=== PATIENT | male | born 1945 | race Caucasian/White ===

== ENCOUNTER 2019-05-12 06:00 | Outpatient (RCR) | payer OTHER, SELFPAY | END 2019-06-11 00:01 | LOC: APT 06:00 | PROVIDERS: Family Provider Internal Medicine; Visit Provider Internal Medicine | DX: Z86.73 Personal history of transient ischemic attack (TIA), and cerebral infarction without residual deficits (principal); I48.91 Unspecified atrial fibrillation | CPT/HCPCS: 97110 ×7; 97112; 97530 ==

== ENCOUNTER 2019-06-12 06:00 | Outpatient (RCR) | payer OTHER, SELFPAY | END 2019-07-12 23:59 | disposition home or self-care (01) | LOC: APT 06:00 | PROVIDERS: Family Provider Internal Medicine; PCP Internal Medicine; Visit Provider Internal Medicine | DX: I69.30 Unspecified sequelae of cerebral infarction (principal) ==

== ENCOUNTER 2019-10-27 15:27 | Inpatient (IN) | payer OTHER, MEDICARE, SELFPAY ==
[2019-10-27] VITALS (8 sets, daily range): BP systolic 124–146; BP diastolic 68–83; PULSE 62–89; RESP 14–18; TEMP 36.3–36.9; O2SAT 94–99; BMI 35.2
--- NOTE | 2019-10-27 15:32 | ED_ITS ---
HPI - Weakness General: Chief complaint: Altered Mental Status Stated complaint: AMS Time Seen by Provider: 10/27/19 15:28 Source: patient and EMS Mode of arrival: EMS Limitations: no limitations History of Present Illness: HPI Narrative: 74-year-old male that family states woke up this morning and seemed confused. Last known well was in p.m. Patient does have a history of a stroke. Patient here is able answer all my questions appropriately he states he just feels generally weak and is kind of slow to answer. He knows the date where he lives and his name. Patient has no focal deficits. He denies any pain or fevers. He has had a hematuria over the last 6 months that that he is getting worked up outpatient. MD Complaint: generalized weakness Associated symptoms: Denies chest pain, chills, easy bruising, fever(s), headache(s), nausea or vomiting Review of Systems Const: Denies: fever(s), chills, body aches or change in appetite Eyes: Denies: blurry vision or eye discomfort ENMT: Denies: throat pain or dental pain Card: Denies: chest pain Resp: Denies: dyspnea GI: Denies: abdominal pain, nausea, vomiting or diarrhea : Reports: hematuria Musc: Reports: muscle weakness Skin/Breast: Denies: rash Neuro: Denies: headache(s) Psych: Denies: depression Shai/Lymph: Denies: easy bruising All/Imm: Denies: urticaria PFSH ED PFSH: Medical History 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 Atrial fibrillation BPH (benign prostatic hyperplasia) Carotid artery stenosis Diverticulosis Duodenal ulcer Gastritis Hiatal hernia History of colon polyps Follow-up colonoscopy in 2023 HTN (hypertension) Hyperlipidemia Internal hemorrhoids S/P ORIF (open reduction internal fixation) fracture RIGHT HIP Status post placement of implantable loop recorder TIA (transient ischemic attack) Surgical History History of cystoscopy History of esophagogastroduodenoscopy (EGD) History of vasectomy S/P discectomy Status post colonoscopy with polypectomy Family History Mother Stroke Brother Rwqck-4-pvhnqaybhqt deficiency Denies family history of Anesthesia complication Bleeding disorder Social History Smoking and tobacco status: never smoked Alcohol intake: never Household members: spouse Marital status: Current occupational status: retired Physical Exam Const: COMMON NORMALS: no acute distress, patient oriented x3 and healthy appearing HENMT: COMMON NORMALS: normocephalic and atraumatic HEAD & SCALP: normocephalic and atraumatic Eye: COMMON NORMALS: Equal, round and reactive pupils present and EOMs intact bilaterally PUPIL: Yes Equal, round and reactive pupils present Neck/C-Spine: COMMON NORMALS: full ROM and supple Chest: COMMONS NORMALS: normal inspection of the chest and normal palpation of entire chest wall Resp: COMMON NORMALS: normal respiratory effort, No retractions, No use of accessory muscles and clear to auscultation bilaterally AUSCULTATION: clear to auscultation bilaterally Cardio: COMMON NORMALS: regular rate, regular rhythm and No murmurs present (Cardio) RATE: regular rate RHYTHM: regular rhythm GI: COMMON NORMALS: Normal to inspection, nondistended, normoactive bowel sounds present, Soft to palpation, non-tender and no masses PALPATION: Yes Soft to palpation Extremity: COMMON NORMALS: normal to inspection and full ROM Neuro: COMMON NORMALS: patient oriented x3, moves all extremities and no focal motor deficits Psych: COMMON NORMALS: mental status grossly normal, Normal thought process present and cooperative THOUGHT PROCESS: Normal thought process present Skin: COMMON NORMALS: no rashes or lesions noted and no wounds GENERAL SKIN EXAM: no rashes or lesions noted Course Vital Signs: Vital signs: Vital Signs Temperature 98.0 F 10/27/19 15:34 Pulse Rate 66 10/27/19 16:35 Respiratory Rate 17 10/27/19 16:35 Blood Pressure 134/73 10/27/19 16:35 Pulse Oximetry 96 10/27/19 16:35 MDM - Weakness MDM Narrative: Medical decision making narrative: Patient presents with mild confusion likely from a cystitis. Patient's urinalysis showed UTI. Patient is not septic and CT shows no acute findings. I spoke to hospitalist and will admit for observation. Lab Data: Labs: Lab Results 05/17/20 05/17/20 05/17/20 Range/Units 15:43 15:43 15:43 WBC 5.3 (4.0-10.0) 10^3/ uL RBC 3.68 L (4.1-5.3) 10^6/u L Hgb 11.5 L (11.7-16.6) g/dL Hct 37.2 L (42.0-52.0) % MCV 101.1 H (80-94) fL MCH 31.3 (28.0-34.0) pg MCHC 30.9 (30.0-36.0) g/dL RDW 14.9 (12.1-15.1) % Plt Count 117 L (130-400) 10^3/c mm MPV 11.1 H (7.4-10.4) fL Neut % (Auto) 38.4 % Lymph % (Auto) 44.0 % [place] % (Auto) 13.3 % Eos % (Auto) 3.0 % Baso % (Auto) 1.1 % Neut # (Auto) 2.0 (1.8-7.7) 10^3/u L Lymph # (Auto) 2.3 (0.8-4.8) 10^3/u L [place] # (Auto) 0.7 (0.2-0.9) 10^3/u L Eos # (Auto) 0.2 (0.0-0.8) 10^3/u L Baso # (Auto) 0.1 (0.0-0.1) 10^3/u L Nucleated RBC % (a uto) 0 % Nucleated RBCs # 0.0 /100WBC PT 22.00 H (10.5-13.3) SECO NDS INR 1.85 H (0.8-1.2) Sodium 138 (136-145) mmol/L Potassium 3.6 (3.5-5.1) mmol/L Chloride 102 (98-107) mmol/L Carbon Dioxide 26 (22-29) mmol/L Anion Gap 13.6 (5-19) BUN 12 (8-23) mg/dL Creatinine 1.2 (0.7-1.2) mg/dL Glucose 143 H (65-115) mg/dL Calculated Osmolal ity 285 (285-295) mOsm/k g Calcium 8.3 L (8.5-10.5) mg/dL Total Bilirubin 1.6 H (0.15-1.2) mg/dL AST 46 H (0-40) U/L ALT 19 (0-41) U/L Alkaline Phosphata se 113 (40-130) IU/L Troponin T Baselin e (0-15) ng/mL Total Protein 6.9 (6.6-8.7) g/dL Albumin 3.0 L (3.5-5.2) g/dL Globulin 3.9 (1.3-4.6) g/dL Urine Color (Yellow) Urine Appearance (CLEAR) Urine pH (5-7) Ur Specific Gravit y (1.005-1.030) Urine Protein (Negative) Urine Glucose (UA) (Normal) Urine Ketones (Negative) Urine Blood (Negative) Urine Nitrate (Negative) Urine Bilirubin (NEGATIVE) Urine Urobilinogen (Negative) mg/dL Ur Leukocyte Marcie ase (Negative) Urine RBC (0-2) /hpf Urine WBC (0-5) /hpf Ur Squamous Epith Cells (0-5) Urine Bacteria (NONE) Urine Mucus 10/27/19 10/27/19 Range/Units 15:43 15:50 WBC (4.0-10.0) 10^3/ uL RBC (4.1-5.3) 10^6/u L Hgb (11.7-16.6) g/dL Hct (42.0-52.0) % MCV (80-94) fL MCH (28.0-34.0) pg MCHC (30.0-36.0) g/dL RDW (12.1-15.1) % Plt Count (130-400) 10^3/c mm MPV (7.4-10.4) fL Neut % (Auto) % Lymph % (Auto) % [place] % (Auto) % Eos % (Auto) % Baso % (Auto) % Neut # (Auto) (1.8-7.7) 10^3/u L Lymph # (Auto) (0.8-4.8) 10^3/u L [place] # (Auto) (0.2-0.9) 10^3/u L Eos # (Auto) (0.0-0.8) 10^3/u L Baso # (Auto) (0.0-0.1) 10^3/u L Nucleated RBC % (a uto) % Nucleated RBCs # /100WBC PT (10.5-13.3) SECO NDS INR (0.8-1.2) Sodium (136-145) mmol/L Potassium (3.5-5.1) mmol/L Chloride (98-107) mmol/L Carbon Dioxide (22-29) mmol/L Anion Gap (5-19) BUN (8-23) mg/dL Creatinine (0.7-1.2) mg/dL Glucose (65-115) mg/dL Calculated Osmolal ity (285-295) mOsm/k g Calcium (8.5-10.5) mg/dL Total Bilirubin (0.15-1.2) mg/dL AST (0-40) U/L ALT (0-41) U/L Alkaline Phosphata se (40-130) IU/L Troponin T Baselin e 12 (0-15) ng/mL Total Protein (6.6-8.7) g/dL Albumin (3.5-5.2) g/dL Globulin (1.3-4.6) g/dL Urine Color Yellow (Yellow) Urine Appearance Clear (CLEAR) Urine pH 6 (5-7) Ur Specific Gravit y 1.015 (1.005-1.030) Urine Protein Neg (Negative) Urine Glucose (UA) Norm (Normal) Urine Ketones Negative (Negative) Urine Blood Neg (Negative) Urine Nitrate Negative (Negative) Urine Bilirubin Neg (NEGATIVE) Urine Urobilinogen 1 H (Negative) mg/dL Ur Leukocyte Marcie ase 2+ H (Negative) Urine RBC None (0-2) /hpf Urine WBC 15-25 H (0-5) /hpf Ur Squamous Epith Cells 0-4 H (0-5) Urine Bacteria 1+ H (NONE) Urine Mucus Trace Imaging Data^: CXR: Radiologist's impression: [address] [address] XRay Report Signed Patient: Blayne Martinez Unit #: [id number] : 1945 Age/Sex: 74 / M ADM Date: 10/27/19 Loc: ER Room/Bed: Attending Dr: Ordering Provider/Ordering MD: Maricarmen Rivera MD Date of Service: 10/27/19 Procedure(s): XR chest 1V portable [id number] Accession Number(s): [id number] Report Number: [id number] PROCEDURE INFORMATION: Exam: XR Chest, 1 View Exam date and time: 10/27/2019 3:54 PM Age: 74 years old Clinical indication: Other: AMS TECHNIQUE: Imaging protocol: XR of the chest Views: 1 view. COMPARISON: [place] Chest 1 [place] [id number] 12/21/2018 4:10 PM FINDINGS: Lungs: Streaky opacities at the lung bases, likely secondary to atelectasis and/or scarring. No consolidation. Pleural space: Unremarkable. No pleural effusion. No pneumothorax. Heart/Mediastinum: Unremarkable. No cardiomegaly. Vasculature: Senescent changes of the aorta. Bones/joints: No acute osseous abnormality. Mild degenerative changes of the spine and shoulders. Other findings: Unchanged event monitor overlying the left medial hemithorax. XR/XR chest 1V portable [id number] IMPRESSION: No acute radiographic findings. CT Head: Radiologist's impression: [place] [address] CT Scan Report Signed Patient: Blayne Martinez Unit #: [id number] : 1945 Age/Sex: 74 / M ADM Date: 10/27/19 Loc: ER Room/Bed: Attending Dr: Ordering Provider/Ordering MD: Maricarmen Rivera MD Date of Service: 10/27/19 Procedure(s): CT head wo con* [id number] Accession Number(s): [id number] Report Number: [id number] PROCEDURE INFORMATION: Exam: CT Head Without Contrast Exam date and time: 10/27/2019 3:39 PM Age: 74 years old Clinical indication: Altered mental status/memory loss; Confusion or disorientation; Patient HX: Increasing confusion w ESPA[place]A - HX of CVA; Additional info: AMS TECHNIQUE: Imaging protocol: Computed tomography of the head without contrast. Axial, coronal and sagittal reformatted images were created and reviewed. Radiation optimization: All CT scans at this facility use at least one of these dose optimization techniques: automated exposure control; mA and/or kV adjustment per patient size (includes targeted exams where dose is matched to clinical indication); or iterative reconstruction. COMPARISON: CT head wo con* [id number] 03/24/2019 10:44 AM RADIATION DOSE METRICS: Total DLP: 790.43 mGy-cm FINDINGS: Brain: Patchy areas of hypoattenuation in the periventricular and subcortical white matter, consistent with chronic small vessel ischemic disease. No CT evidence of acute intracranial hemorrhage or acute territorial infarction. No significant mass effect or midline shift. Basal cisterns patent. Ventricles: Prominence of the cortical sulci, cisterns and ventricular system, consistent with cerebral and cerebellar volume loss. Bones/joints: No acute osseous abnormality. Sinuses: Minimal ethmoid mucosal thickening. Mastoid air cells: Grossly unremarkable. Soft tissues: Grossly unremarkable. Vasculature: Calcific atherosclerotic disease in the cavernous internal carotid arteries. CT/CT head wo con* [id number] IMPRESSION: 1. No CT evidence of acute intracranial pathology. 2. Additional findings, as above. Discharge Plan Discharge Patient Disposition: Admitted As Inpatient Clinical Impression: Altered mental status Qualifiers: Altered mental status type: unspecified Qualified Code(s): R41.82 - Altered mental status, unspecified Acute cystitis Qualifiers: Hematuria presence: without hematuria Qualified Code(s): N30.00 - Acute cystiti s without hematuria Condition: Stable Referrals: Hadley Vidales [Primary Care Provider] - Coding Level of Care Code ED Energy Technician for [facility] Fwd Exam Comprehensive
--- NOTE | 2019-10-27 15:34 | XRR_ITS ---
PROCEDURE INFORMATION: Exam: XR Chest, 1 View Exam date and time: 10/27/2019 3:54 PM Age: 74 years old Clinical indication: Other: AMS TECHNIQUE: Imaging protocol: XR of the chest Views: 1 view. COMPARISON: [place] Chest 1 [place] [id number] 12/21/2018 4:10 PM FINDINGS: Lungs: Streaky opacities at the lung bases, likely secondary to atelectasis and/or scarring. No consolidation. Pleural space: Unremarkable. No pleural effusion. No pneumothorax. Heart/Mediastinum: Unremarkable. No cardiomegaly. Vasculature: Senescent changes of the aorta. Bones/joints: No acute osseous abnormality. Mild degenerative changes of the spine and shoulders. Other findings: Unchanged event monitor overlying the left medial hemithorax. XR/XR chest 1V portable [id number] IMPRESSION: No acute radiographic findings.
--- NOTE | 2019-10-27 15:35 | ECG_ITS ---
Measurements Intervals [place] Rate: 63 P: -71 MN: 174 QRS: 53 QRSD: 81 T: 45 QT: 440 QTc: 451 SINUS RHYTHM Compared to ECG 03/24/2019 11:04:30 First degree AV block no longer present Electronically Signed On 10-28-2019 19:54:18 CDT by Sintia Chapman M.D. [email or web address]
[2019-10-27 15:51] LABS: Basophils # 0.1 10^3/uL (0.0-0.1); Basophils % 1.1 %; Eosinophils # 0.2 10^3/uL (0.0-0.8); Hematocrit 37.2 % (42.0-52.0); Hemoglobin 11.5 g/dL (11.7-16.6); Lymphocytes # 2.3 10^3/uL (0.8-4.8); Mean Corpuscular HGB Conc 30.9 g/dL (30.0-36.0); Mean Corpuscular Hemoglobin 31.3 pg (28.0-34.0); Mean Corpuscular Volume 101.1 fL (80-94); Mean Platelet Volume 11.1 fL (7.4-10.4); Monocytes # 0.7 10^3/uL (0.2-0.9); Monocytes % 13.3 %; Neutrophils % 38.4 %; Nucleated Red Blood Cells % 0 %; Platelet Count 117 10^3/cmm (130-400); Red Blood Count 3.68 10^6/uL (4.1-5.3); Red Cell Distribution Width 14.9 % (12.1-15.1); White Blood Count 5.3 10^3/uL (4.0-10.0)
[2019-10-27 16:00] LABS: INR 1.85 (0.8-1.2)
[2019-10-27 16:04] LABS: Alanine Aminotransferase 19 U/L (0-41); Alkaline Phosphatase 113 IU/L (40-130); Anion Gap 13.6 (5-19); Aspartate Amino Transferase 46 U/L (0-40); Blood Urea Nitrogen 12 mg/dL (8-23); Calcium 8.3 mg/dL (8.5-10.5); Carbon Dioxide 26 mmol/L (22-29); Chloride 102 mmol/L (98-107); Creatinine Clr Calc Pharmacy 73.7718; Globulin 3.9 g/dL (1.3-4.6); Glucose 143 mg/dL (65-115); Osmolality Calculated 285 mOsm/kg (285-295); Potassium 3.6 mmol/L (3.5-5.1); Sodium 138 mmol/L (136-145); Total Bilirubin 1.6 mg/dL (0.15-1.2); Total Protein 6.9 g/dL (6.6-8.7)
[2019-10-27 16:04] LABS: Urine Appearance Clear (CLEAR); Urine Color Yellow (Yellow); pH Urine 6 (5-7)
[2019-10-27 16:05] LABS: Add Urine Microscopic? YES; Bilirubin Urine Neg (NEGATIVE); Blood Urine Neg (Negative); Glucose Urine UA Norm (Normal); Ketones Urine Negative (Negative); Leukocyte Esterase Urine 2+ (Negative); Nitrate Urine Negative (Negative); Protein Urine Neg (Negative); Specific Gravity, Urine 1.015 (1.005-1.030); Urobilinogen Urine 1 mg/dL (Negative)
[2019-10-27 16:06] LABS: Troponin(5th) Baseline 12 ng/mL (0-15)
[2019-10-27 16:09] LABS: WBC Urine 15-25 /hpf (0-5)
[2019-10-27 16:10] LABS: Add Urine Culture? Yes; Bacteria Urine 1+; Mucus Urine TRACE; Squamous Epithelial Cell Urine 0-4 (0-5)
[2019-10-27] MEDS: cefTRIAXone 1,000 MG in sodium chloride 0.9% (plus) 50 ML 100 MG IV (16:34)
[2019-10-27] MEDS: sodium chloride 0.9% 1,000 ML 999 ML IV (16:34)
--- NOTE | 2019-10-27 17:03 | CTR_ITS ---
PROCEDURE INFORMATION: Exam: CT Abdomen And Pelvis Without Contrast Exam date and time: 10/27/2019 5:24 PM Age: 74 years old Clinical indication: Abdominal tenderness and bloating; Patient HX: C/O abd distention and pain for a while; Additional info: R/O obstructive pyelo TECHNIQUE: Imaging protocol: Computed tomography of the abdomen and pelvis without contrast. Axial, coronal and sagittal reformatted images were created and reviewed. Radiation optimization: All CT scans at this facility use at least one of these dose optimization techniques: automated exposure control; mA and/or kV adjustment per patient size (includes targeted exams where dose is matched to clinical indication); or iterative reconstruction. COMPARISON: CT Abdomen/Pelvis Renal [id number] 12/18/2018 9:21 AM RADIATION DOSE METRICS: Total DLP: 1816.72 mGy-cm FINDINGS: Lungs: Linear stranding and groundglass at the lung bases, likely due to atelectasis and/or scarring. Right lower lobe calcified granuloma. Liver: Subtle nodularity of the hepatic contour, suggesting cirrhosis. Gallbladder and bile ducts: No radiodense gallstones. No biliary ductal dilatation. Pancreas: Unremarkable. Spleen: Unremarkable. Adrenals: Unremarkable. Kidneys and ureters: Nonobstructing left renal calculi. No hydronephrosis. Stomach and bowel: Submucosal fat deposition in the rectum, suggestive of chronic inflammation. No definite bowel wall thickening. No obstruction. No pneumatosis. Appendix: Normal. Intraperitoneal space: No free fluid. No organized fluid collection. No free air. Vasculature: Rajb-[id number]-swfhsxnl atherosclerotic disease. 3.3 cm infrarenal abdominal aortic aneurysm, slightly increased in size since the prior study (previously 3.2 cm). Lymph nodes: No pathologically enlarged lymph nodes. Bladder: Unremarkable. Reproductive: Unremarkable. Bones/joints: No acute osseous abnormality. Osteopenia. Degenerative changes. Right hip arthroplasty in place. Soft tissues: Small, fat containing umbilical and inguinal hernias. CT/CT abdomen pelvis wo con [id number] IMPRESSION: 1. Limited noncontrast examination without CT evidence of acute intra-abdominal or pelvic pathology. 2. Additional findings, as above. Radiation Dose CTDIVOL = (mGy): DLP = 1816.72 (mGy-cm)
--- NOTE | 2019-10-27 17:03 | PM.HP ---
Providers/Chief Complaint Admitting Physician: Norm Mc MD Primary Care Provider: Hadley Vidales Chief Complaint: AMS History of Present Illness Blayne Martinez is a 74 year old male with PMH hemochromatosis s/p phlebotomy (08/2018), signs of early liver cirrhosis and portal hypertension on ultrasound done in November 2018, chronic anemia, thrombocytopenia, HLD, BPH , atrial fibrillation with RVR on Elquis, TIA, carotid artery stenosis, hematemesis in November thousand after which aspirin was withheld, pansensitive E. coli UTI. History from Ms. Willoughby over the phone. As per the , he was in his usual state of health until a week ago when he developed headache, more in the frontal region with some apparent discomfort in the abdomen. She is not aware if patient had any diarrhea. Denies having any vomiting, nausea, hematemesis or decrease in appetite. Patient has also been having headaches in frontal area, worse over last 2 days. He was in his usual state until last night. On waking up this am, he was confused, such as could not operate his phone, was going in wrong direction at home, so was brought to the ER for evaluation. As per , he has not had URI symptoms, sick contacts, cough, known tick bites. Last visited by son and his sister 3 weeks ago. No recent hiking. No known tick bites. No h/o bleeding at any site. No hematemesis or tere. Has been compliant with all medications. No h/o photophibia or weakness in any limb. In Er, he was hemodynamically stable, afebrile, no leukocytosis. Cr at baseline. LFT WNL. UA with leuko esterase and 15-20WBCs. Of note, patient saw PCP 3 weeks ago and was referred to Dr. Muñoz for hematuria. Currently UA negative for blood. Review of Systems Narrative: Obtained from as patient is confused. Const: Denies: fever(s), chills, body aches, change in appetite, malaise, night sweats, diaphoresis, change in sleep pattern, daytime sleepiness or snoring Eyes: Denies: change in vision, blurry vision, photophobia, eye discomfort or eye discharge ENMT: Denies: throat pain, enlarged tonsils, hoarseness, mouth pain, oral sores, dry mouth, tinnitus, nasal congestion or post nasal drip Card: Denies: chest pain, palpitations, irregular heart rhythm, edema, swelling of feet/ankles, lightheadedness, syncope, pre-syncope, dyspnea on exertion, orthopnea, leg pain with exertion or acrocyanosis Resp: Denies: dyspnea, productive cough, non-productive cough, wheezing, stridor, pain on inspiration, change in phlegm color, hemoptysis or chest congestion GI: Denies: abdominal pain, nausea, vomiting, hematemesis, coffee ground emesis, dysphagia, heartburn, diarrhea, constipation, bloating, GI cramping, change in bowel habits, pain on defecation, hematochezia or melena : Denies: flank pain, difficulty urinating, dysuria, urinary frequency, urinary urgency, urinary hesitancy, urinary dribbling, difficulty starting urination, change in urine stream, nocturia or hematuria Musc: Denies: neck pain, back pain, extremity pain, joint pain, joint swelling, joint redness, joint stiffness or limited range of motion Neuro: Denies: headache(s), numbness in extremities, weakness in extremities, sensory changes, lack of coordination, difficulty walking, frequent falls, dizziness, vertigo, confusion, Slurred speech present, difficulty communicating thoughts or seizure-like activity Psych: Denies: anxiety, depression, mood swings, panic attacks, hopelessness or irritability Endo: Denies: polyuria, polydipsia, tired all the time, cold intolerance, excessive sweating, flushing or heat intolerance Shai/Lymph: Denies: easy bruising or easy bleeding All/Imm: Denies: tongue swelling, facial swelling or acute wheezing Medications/Allergies Home Medications Medication Instructions Recorded Confirmed Last Taken Type albuterol sulfate 90 mcg/actuation 2 puff INHALATION Q6H PRN 06/17/19 10/27/19 Unknown History aerosol inhaler metoprolol succinate 25 mg 12.5 mg PO DAILY tab 06/17/19 10/27/19 10/27/19 08:30 History tablet,extended release 24 hr pantoprazole 40 mg tablet,delayed 40 mg PO DAILY tab 06/17/19 10/27/19 10/27/19 08:30 History release potassium chloride 20 mEq 10 meq PO DAILY tab 06/17/19 10/27/19 10/27/19 08:30 History tablet,extended release apixaban 5 mg tablet 5 mg PO BID 06/18/19 10/27/19 10/27/19 08:30 History furosemide 40 mg tablet 40 mg PO DAILY tab 06/18/19 10/27/19 10/27/19 08:30 History levetiracetam 750 mg tablet 750 mg PO BID 06/18/19 10/27/19 10/27/19 08:30 History pravastatin 20 mg tablet 10 mg PO BEDTIME tab 06/18/19 10/27/19 10/26/19 History Allergies Allergy/AdvReac Type Severity Reaction Status Date / Time No Known Allergies Allergy Verified 10/27/19 15:36 PFSH Acute PFSH: Medical History (Updated 10/27/19 @ 19:33 by Norm Mc MD) 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 Atrial fibrillation BPH (benign prostatic hyperplasia) Carotid artery stenosis Diverticulosis Duodenal ulcer Gastritis Hiatal hernia History of colon polyps Follow-up colonoscopy in 2023 HTN (hypertension) Hyperlipidemia Internal hemorrhoids Liver, cirrhosis, portal Portal hypertension S/P ORIF (open reduction internal fixation) fracture RIGHT HIP Status post placement of implantable loop recorder TIA (transient ischemic attack) Surgical History History of cystoscopy History of esophagogastroduodenoscopy (EGD) History of vasectomy S/P discectomy Status post colonoscopy with polypectomy Family History Mother Stroke Brother [id number] deficiency Denies family history of Anesthesia complication Bleeding disorder Social History Smoking and tobacco status: never smoked Alcohol intake: never Household members: spouse Marital status: Current occupational status: retired Vitals/I&O/Wt Last Vital Signs Temp 98.0 F 10/27/19 15:34 Pulse 66 10/27/19 16:35 Resp 17 10/27/19 16:35 BP 134/73 10/27/19 16:35 Pulse Ox 96 10/27/19 16:35 Weight last 48 hrs Weight 117.934 kg Physical Exam Narrative: EXAM NARRATIVE: General: Alert, awake, oriented x 1-2, slow to respond, intermittently confused, mildly dehydrated HEENT: PERRLA, pupils bilaterally equal and reactive. No photophobia Chest: Normal vesicular breath sounds, no added sounds, equal good air entry bilaterally CVS: S1-S2 regular, no murmurs, no tachycardia, no gallops, no rubs Abdomen: Soft, nontender, no organomegaly, bowel sounds present Neuro: No focal deficits, no facial deformity, AO x1-2, power 5/5 in all limbs. No neck stiffness. Neck supple. Data : 10/27/19 15:43 10/27/19 15:43 A&P Assessment and plan (1) Altered mental status: Status: Acute Qualifiers: Altered mental status type: unspecified Qualified Code(s): R41.82 - Altered mental status, unspecified (2) Acute cystitis: Status: Acute Qualifiers: Hematuria presence: without hematuria Qualified Code(s): N30.00 - Acute cystitis without hematuria (3) Atrial fibrillation: Status: Acute Qualifiers: Atrial fibrillation type: paroxysmal Qualified Code(s): I48.0 - Paroxysmal atrial fibrillation (4) Chronic anemia: Status: Acute (5) Hemochromatosis: Status: Acute (6) Portal hypertension: Status: Acute (7) Liver, cirrhosis, portal: Status: Acute (8) HTN (hypertension): Status: Acute Additional A&P Information 72-year-old gentleman past medical history ofhemochromatosis leading to portal hypertension and liver cirrhosis, TIA, atrial fibrillation only on Eliquis not on aspirin since GI bleed in November 2018 presented with altered mental status for 1 day. \ Admit to med/surg 1. Altered mental status :Could be multifactorial given extensive PMH Check ABG to rule out hypercapnia, hypoxia. Check Ammonia levels given h/o cirrhosis and portal HTN, CT head without acute etiologies, check MRI w/o contrast given hemochromatosis, encephalitis May be related to metabolic encephalopathy related to UTI Less likely CVA as CT head negative and no focal neurological signs Hold off on LP for now given patient is on Eliquis. Hold the drug for now for possible LP Check Keppra levels, prolactin levels as may be post ictal state if h/o seizures Fall, seizure and aspiration precautions. Chances of meningitis and encephalitis are low but LP cannot be done right now as patient is on Eliquis. We will hold Eliquis today and try for LP tomorrow. 2. Acute cystitis: Check procalcitonin, lactate with reflex UA with + LA, already received empiric ceftriaxone in ED, will continue Previous cx with marin-S E.coli CT abdomen to r/o obstructive uropathy 3. A fib: Currently rate controlled, telemetry. Continue metoprolol, lasix Hold Eliquis as above 4. Chronic Anemia: check iron panel, hb stable for now No signs of bleeding at any site. 5. Hypertension: Blood pressure well under control for now. Continue home medications. Continue chronic home medications like potassium, statins. We will change medications as per the clinical picture and results of the tests ordered. DVT ppx: Eliquis on hold. Scds only Cardiac diet Code status: DNR/DNI/AND. Discussed with . POA is and daughter Attestations Medical Necessity Statement*: More than 2 midnights for management of altered mental status Time Spent in Patient Care: Greater than 35 minutes Coding Level of Care Code Acute Patient Service Associate for g Fwd Diagnoses Altered mental status R41.82 Altered mental status type: unspecified Acute cystitis N30.00 Hematuria presence: without hematuria Atrial fibrillation I48.0 Atrial fibrillation type: paroxysmal Chronic anemia D64.9 Hemochromatosis E83.119 Portal hypertension K76.6 Liver, cirrhosis, portal K74.69 HTN (hypertension) I10
--- NOTE | 2019-10-27 17:35 | ECG_ITS ---
Measurements Intervals [place] Rate: 63 P: -71 [place]: 174 QRS: 53 QRSD: 81 T: 45 QT: 440 QTc: 451 SINUS RHYTHM Compared to ECG 03/24/2019 11:04:30 First degree AV block no longer present [id number]
[2019-10-27 18:07] LABS: Troponin 5 2HR 14.03 ng/mL (0-15); Troponin 5 2HR Delta 2.03 ABS# (0-10)
[2019-10-27 18:15] LABS: Procalcitonin 0.08 ng/mL (0-0.5)
[2019-10-27 18:25] LABS: Iron 58 ug/dL (59-158); Total Iron Binding Capacity 223 mcg/dl; Unsaturated Iron Binding 165 ug/dL (112-347)
[2019-10-27 18:34] LABS: ABG PCO2 39.3 mmHg (35-45); ABG PH Result 7.45 (7.35-7.45); Alveolar-Arterial Oxygen Gradi 15.8 mmHg (5-10); Arterial Blood Gas Hematocrit 36.6 % (42-52); Base Excess ABG 2.8 mmol/L (-2.0-2.0); Blood Gas Allen Test Pos; Blood Gas Sample Site Radial, right; Blood Gas Sample Type Arterial; HGB O2 Sat 94.9 % (95-100); Ionized Calcium Level - ABG 1.2 mmol/L (1.1-1.4); Methemoglobin 0.8 % (0.4-1.5); Oxygen Device ROOM AIR; Oxygen Saturation ABG 96.6; PO2 ABG 83.2 mmHg (80.0-100.0); Potassium Level - ABG 3.9 mmol/L (3.5-5.0); Total Hemoglobin 11.9 g/dL (14-18)
[2019-10-27] MEDS: levETIRAcetam 500 mg Tablet 750 MG PO (18:35)
[2019-10-27] MEDS: apixaban 5 mg Tablet PO (18:35)
[2019-10-27 19:59] LABS: Lactic Sepsis W/Reflex 1.8 mmol/L (0.5-2.2)
[2019-10-27 20:06] LABS: NT Pro B Type Natriuretic Pept 137 pg/mL (0-125)
[2019-10-27 20:07] LABS: Thyroid Stimulating Hormone 1.98 uIU/mL (0.27-4.20)
[2019-10-27 20:42] LABS: Amphetamines Screen Urine Negative (Negative); Barbiturates Screen Urine Negative (Negative); Benzodiazepines Screen Urine Negative (Negative); Cocaine Screen Urine Negative (Negative); Opiate Screen Urine Negative (Negative); PCP Screen Urine Negative (Negative); THC Screen Urine Negative (Negative)
[2019-10-27 20:53] LABS: Influenza A by IFA Negative (Negative); Influenza B by IFA Negative (Negative)
--- NOTE | 2019-10-27 21:35 | ECG_ITS ---
Measurements Intervals [place] Rate: 80 P: 90 [place]: 238 QRS: 38 QRSD: 78 T: 27 QT: 419 QTc: 485 SINUS RHYTHM WITH FIRST DEGREE AV BLOCK Compared to ECG 03/24/2019 11:04:30 No significant changes Electronically Signed On 10-28-2019 20:21:29 CDT by Sintia Chapman M.D. [id number]
[2019-10-27] MEDS: ipratropium-albuterol 3 mL Neb INHALATION (21:48)
[2019-10-27 22:12] LABS: Ammonia 52 umol/L (16-60)
[2019-10-27 22:13] LABS: Troponin 5 6HR 15.79 ng/mL (0-15); Troponin 5 6HR Delta 3.79 ng/L (0-12)
[2019-10-28] VITALS (11 sets, daily range): BP systolic 127–150; BP diastolic 63–83; PULSE 65–85; RESP 14–20; TEMP 36.6–36.8; O2SAT 92–98; BMI 35.2
[2019-10-28] MEDS: ipratropium-albuterol 3 mL Neb INHALATION ×4 (02:15→20:57)
[2019-10-28 06:21] LABS: Basophils # 0.1 10^3/uL (0.0-0.1); Basophils % 1.7 %; Eosinophils # 0.1 10^3/uL (0.0-0.8); Hematocrit 36.3 % (42.0-52.0); Hemoglobin 11.3 g/dL (11.7-16.6); Lymphocytes # 1.6 10^3/uL (0.8-4.8); Lymphocytes % 33.4 %; Mean Corpuscular HGB Conc 31.1 g/dL (30.0-36.0); Mean Corpuscular Hemoglobin 31.3 pg (28.0-34.0); Mean Corpuscular Volume 100.6 fL (80-94); Mean Platelet Volume 11.1 fL (7.4-10.4); Monocytes # 0.6 10^3/uL (0.2-0.9); Monocytes % 13.1 %; Neutrophils # 2.3 10^3/uL (1.8-7.7); Neutrophils % 48.6 %; Nucleated Red Blood Cells % 0 %; Platelet Count 119 10^3/cmm (130-400); Red Blood Count 3.61 10^6/uL (4.1-5.3); Red Cell Distribution Width 14.8 % (12.1-15.1); White Blood Count 4.6 10^3/uL (4.0-10.0)
[2019-10-28 06:38] LABS: Alanine Aminotransferase 18 U/L (0-41); Albumin Level 2.7 g/dL (3.5-5.2); Alkaline Phosphatase 110 IU/L (40-130); Anion Gap 14.7 (5-19); Aspartate Amino Transferase 44 U/L (0-40); Blood Urea Nitrogen 15 mg/dL (8-23); Calcium 9.1 mg/dL (8.5-10.5); Carbon Dioxide 26 mmol/L (22-29); Chloride 106 mmol/L (98-107); Globulin 4.4 g/dL (1.3-4.6); Glucose 110 mg/dL (65-115); Osmolality Calculated 293 mOsm/kg (285-295); Potassium 3.7 mmol/L (3.5-5.1); Sodium 143 mmol/L (136-145); Total Bilirubin 1.3 mg/dL (0.15-1.2); Total Protein 7.1 g/dL (6.6-8.7)
[2019-10-28 06:43] LABS: Estmated Average Glucose 120; Hemoglobin A1C 5.8 % (4.0-6.0)
[2019-10-28] MEDS: levETIRAcetam 500 mg Tablet 750 MG PO ×2 (08:21→16:25)
[2019-10-28] MEDS: FUROsemide 40 mg Tablet PO (08:21)
[2019-10-28] MEDS: ferrous sulfate EC 325 mg Tablet PO ×2 (08:21→16:25)
[2019-10-28] MEDS: pantoprazole DR 40 mg Tablet PO (08:21)
[2019-10-28] MEDS: metoprolol succinate ER (24 HR) 25 mg Tablet 12.5 MG PO (08:21)
--- NOTE | 2019-10-28 09:56 | PC.CHAP ---
Pastoral Care Encounter/Spiritual Assessment Type of Contact [] Declined centrifugal chiller technician visit [] Patient/Family/Request visit [] Outpatient visit [] Follow-up visit [] Physician referral [] Code/Alert [x] Routine visit [] Staff referral [] Actively dying [] Patient sleeping [] Family support [] [] Out of room [] Palliative care [] [] Receiving care in room [] Pre-surgical visit [] Trauma [] Long length of stay [] ICU visit [] Other: Relational/Emotional Strength [] Patient feels connected with others/family/visitors/staff [] Distress [] Loneliness/isolation [] Abandonment Spirituality of Patient [] Person of Shahnaz [] Attends Nondenominational of their Shahnaz [] Believes in Prayer [] Reads Bible or Oriental Orthodox materials [] There are Spiritual issues to be addressed Photograph Printer Interventions [x] Prayer [] Active listening [] Non-anxious presence [] Spiritual/emotional support [] Crisis/trauma care [] Spiritual counseling [] Bereavement support [] Provided bereavement packet [] Provided Bible/devotional materials [] Provided toy/stuffed animal, coloring book to patient or family member [] Provided Communion [] Anointing/[place] [] Salvation [x] Completed spiritual assessment [] Other: Impact on Illness or Injury [] Angry [] Fearful [] Anxious [] Often cries [] Exhaustion [] Unable to work [] Unable to attend methodist [] Unable to walk/stand [] Unable to read [] Unable to drive [] Unable to eat/drink [] Unable to sleep [] Unable to be with family [] Patient intubated [] Other: Summary Patient wants to see doctor, regarding release time. Doesn't seem to understand why he is here. Time spent with patient 10 min
--- NOTE | 2019-10-28 13:22 | P.PN_ITS ---
Subjective Subjective: Interval history: No acute events overnight. On examination today morning patient was a lot more alert, having full conversations. AO x3. Wanting to go home to meet his grandchildren. He denies of having any current nausea, vomiting, headache, dizziness or palpitations. Vitals and labs noted. Vitals/I&O/Wt Last Vital Signs Temp 97.9 F 10/28/19 12:00 Pulse 79 10/28/19 12:00 Resp 18 10/28/19 12:00 BP 144/82 10/28/19 12:00 Pulse Ox 96 10/28/19 12:00 10/27/19 10/28/19 10/28/19 22:59 06:59 14:59 Intake Total 0 / 0 240 / 240 240 / 240 Output Total 0 / 0 450 / 450 350 / 350 Balance 0 / 0 -210 / -210 -110 / -110 Weight last 48 hrs Weight 117.617 kg Weight 117.934 kg Physical Exam Narrative: EXAM NARRATIVE: General: Alert, awake, oriented x 3, not confused, continues to be slow to respond but better than yesterday. HEENT: PERRLA, pupils bilaterally equal and reactive. No photophobia Chest: Normal vesicular breath sounds, no added sounds, equal good air entry bilaterally CVS: S1-S2 regular, no murmurs, no tachycardia, no gallops, no rubs Abdomen: Soft, nontender, no organomegaly, bowel sounds present Neuro: No focal deficits, no facial deformity, power 5/5 in all limbs. No neck stiffness. Neck supple. Data : 10/28/19 06:02 10/28/19 06:02 Micro: Microbiology 10/27/19 20:13 MRSA Culture - Final Nose 10/27/19 15:34 Blood Culture - Preliminary Blood SPECIMEN COLLECTED 10/27/19 17:42 Blood Culture - Preliminary Blood SPECIMEN COLLECTED A&P Assessment and plan (1) Altered mental status: Status: Acute Qualifiers: Altered mental status type: unspecified Qualified Code(s): R41.82 - Altered mental status, unspecified (2) Acute cystitis: Status: Acute Qualifiers: Hematuria presence: without hematuria Qualified Code(s): N30.00 - Acute cystitis without hematuria (3) Atrial fibrillation: Status: Acute Qualifiers: Atrial fibrillation type: paroxysmal Qualified Code(s): I48.0 - Paroxysmal atrial fibrillation (4) Chronic anemia: Status: Acute (5) Hemochromatosis: Status: Acute (6) Portal hypertension: Status: Acute (7) Liver, cirrhosis, portal: Status: Acute (8) HTN (hypertension): Status: Acute Additional A&P Information 72-year-old gentleman past medical history ofhemochromatosis leading to portal hypertension and liver cirrhosis, TIA, atrial fibrillation only on Eliquis not on aspirin since GI bleed in November 2018 presented with altered mental status for 1 day. Altered mental status :Could be multifactorial given extensive PMH. ABG negative for hypercapnea and hypoxia, Ammonia WNL, MRI brain awaited. Less likely CVA as CT head negative and no focal neurological signs. Most likley related to metabolic encephalopathy related to UTI. Keppra levels awaited. Some how prolactin not done yesterday, now too late. Will c/w seizure precautions. As patient has improved drastically chances of meningitis and encephalitis are low so will start eliquis back. Fall, seizure and aspiration precautions. Acute cystitis: Procalcitonin, lactate with reflex- WNL UA with + LA, continue with ceftriaxone. Will de-escalate as per the culture results. Previous cx with marin-S E.coli CT abdomen negative for obstructive uropathy. A fib: Currently rate controlled, telemetry. Continue metoprolol, lasix Restart Eliquis as above Chronic Anemia: Iron panel stable. Consistent with anemia of chronic disease. Hemoglobin stable. No signs of bleeding at any site. Continue with oral iron supplementation. Hypertension: Blood pressure well under control for now. Echocardiogram from December 2018 shows an EF of 60% with grade 1 diastolic dysfunction. Continue home medication of metoprolol and 40 mg Lasix. Patient is euvolemic at present. Continue chronic home medications like potassium, statins. We will change medications as per the clinical picture and results of the tests ordered. DVT ppx: Eliquis and Scds only Cardiac diet Code status: DNR/DNI/AND. Discussed with . POA is and daughter Attestations Medical Necessity Statement*: Altered mental status, UTI Time Spent in Patient Care: Greater than 35 minutes Coding Level of Care Code Acute Light Bulb Replacer for [facility] Fwd Diagnoses Altered mental status R41.82 Altered mental status type: unspecified Acute cystitis N30.00 Hematuria presence: without hematuria Atrial fibrillation I48.0 Atrial fibrillation type: paroxysmal Chronic anemia D64.9 Hemochromatosis E83.119 Portal hypertension K76.6 Liver, cirrhosis, portal K74.69 HTN (hypertension) I10
[2019-10-28] MEDS: cefTRIAXone 1,000 MG in sodium chloride 0.9% (plus) 50 ML 100 MG IV (16:25)
[2019-10-28] MEDS: apixaban 5 mg Tablet PO (18:18)
--- NOTE | 2019-10-28 18:35 | MR_ITS ---
WS: [id number] MRI HEAD WITHOUT CONTRAST TECHNIQUE: Sagittal T1, T2 axial, T2 axial FLAIR, axial and coronal T1 images, axial susceptibility w eighted imaging, axial diffusion weighted images, and coronal T2 images were obtained. CLINICAL INFORMATION: h/o TIA, AMS COMPARISON: CT October 26, 2017 and MRI 2018 FINDINGS: No evidence of restricted diffusion to suggest acute ischemia. Ventricular system and basal cisterns are patent. Moderate small vessel changes with moderate parenchymal volume loss. Small vessel changes are stable since 2019. Normal posterior fossa. Normal vascular flow voids at the skull base. No extr a-axial fluid collections. No evidence of mass or mass effect. Partial opacification of the left mast oid air cells. Paranasal sinuses are well aerated. Normal optic chiasm and pituitary infundibulum. Moderate symmetric atrophy involving the temporal lob es and hippocampal formations. No hemosiderin on the susceptibility weighted images. MR/MR head wo con* [id number] IMPRESSION: 1. No evidence of restricted diffusion to suggest acute ischemia. Ventricular system and basal cisterns are patent. 2. Moderate small vessel changes with moderate parenchymal volume loss. 3. Partial opacification of the left mastoid air cells. 4. Moderate symmetric atrophy involving the temporal lobes and hippocampal for mations. 5. No hemosiderin on susceptibly weighted images.
[2019-10-28] MEDS: atorvastatin 40 mg Tablet 10 MG PO (21:03)
[2019-10-29] VITALS (13 sets, daily range): BP systolic 99–132; BP diastolic 61–73; PULSE 70–94; RESP 16–20; TEMP 36.7–37.1; O2SAT 90–98
[2019-10-29] MEDS: ipratropium-albuterol 3 mL Neb INHALATION ×4 (02:30→20:31)
[2019-10-29 05:37] LABS: Basophils # 0.1 10^3/uL (0.0-0.1); Basophils % 1.1 %; Eosinophils # 0.2 10^3/uL (0.0-0.8); Eosinophils % 3.4 %; Hematocrit 32.3 % (42.0-52.0); Hemoglobin 10.1 g/dL (11.7-16.6); Lymphocytes # 1.8 10^3/uL (0.8-4.8); Lymphocytes % 37.1 %; Mean Corpuscular HGB Conc 31.3 g/dL (30.0-36.0); Mean Corpuscular Hemoglobin 31.6 pg (28.0-34.0); Mean Corpuscular Volume 100.9 fL (80-94); Mean Platelet Volume 11.4 fL (7.4-10.4); Monocytes # 0.7 10^3/uL (0.2-0.9); Neutrophils # 2.1 10^3/uL (1.8-7.7); Neutrophils % 44.2 %; Nucleated Red Blood Cells % 0 %; Platelet Count 103 10^3/cmm (130-400); White Blood Count 4.7 10^3/uL (4.0-10.0)
[2019-10-29 06:09] LABS: Alanine Aminotransferase 16 U/L (0-41); Albumin Level 2.5 g/dL (3.5-5.2); Alkaline Phosphatase 97 IU/L (40-130); Anion Gap 14.6 (5-19); Aspartate Amino Transferase 41 U/L (0-40); Blood Urea Nitrogen 14 mg/dL (8-23); Calcium 8.8 mg/dL (8.5-10.5); Carbon Dioxide 26 mmol/L (22-29); Chloride 101 mmol/L (98-107); Globulin 3.8 g/dL (1.3-4.6); Glucose 104 mg/dL (65-115); Osmolality Calculated 283 mOsm/kg (285-295); Potassium 3.6 mmol/L (3.5-5.1); Sodium 138 mmol/L (136-145); Total Bilirubin 1.2 mg/dL (0.15-1.2); Total Protein 6.3 g/dL (6.6-8.7)
[2019-10-29] MEDS: pantoprazole DR 40 mg Tablet PO (07:22)
[2019-10-29] MEDS: metoprolol succinate ER (24 HR) 25 mg Tablet 12.5 MG PO (07:22)
[2019-10-29] MEDS: ferrous sulfate EC 325 mg Tablet PO ×2 (07:22→16:24)
[2019-10-29] MEDS: FUROsemide 40 mg Tablet PO (07:22)
[2019-10-29] MEDS: levETIRAcetam 500 mg Tablet 750 MG PO ×2 (07:22→16:25)
[2019-10-29] MEDS: apixaban 5 mg Tablet PO ×2 (07:22→16:25)
--- NOTE | 2019-10-29 15:15 | PM.PN ---
Subjective Subjective: Interval history: No acute events overnight. On examination today morning having full conversations, AO x3. He denies of having any current nausea, vomiting, headache, dizziness or palpitations. Vitals and labs noted. Vitals/I&O/Wt Last Vital Signs Temp 98.7 F 10/29/19 11:35 Pulse 76 10/29/19 14:22 Resp 20 H 10/29/19 14:22 BP 127/70 10/29/19 11:35 Pulse Ox 93 10/29/19 14:22 10/29/19 10/29/19 10/29/19 06:59 14:59 22:59 Intake Total 120 / 120 Output Total 100 / 1750 950 / 950 Balance -100 / -760 -830 / -830 Weight last 48 hrs Weight 126.643 kg Weight 117.617 kg Weight 117.934 kg Physical Exam Narrative: EXAM NARRATIVE: General: Alert, awake, oriented x 3, Mildly forgetful. HEENT: PERRLA, pupils bilaterally equal and reactive. No photophobia Chest: Normal vesicular breath sounds, no added sounds, equal good air entry bilaterally CVS: S1-S2 regular, no murmurs, no tachycardia, no gallops, no rubs Abdomen: Soft, nontender, no organomegaly, bowel sounds present Neuro: No focal deficits, no facial deformity, power 5/5 in all limbs. No neck stiffness. Neck supple. Data : 10/29/19 04:41 10/29/19 04:41 Micro: Microbiology 10/27/19 15:50 Urine Culture - Preliminary Urine,Clean Catch Enterococcus species 10/27/19 15:34 Blood Culture - Preliminary Blood NEGATIVE TO DATE 10/27/19 17:42 Blood Culture - Preliminary Blood NEGATIVE TO DATE 10/27/19 20:13 MRSA Culture - Final Nose A&P Assessment and plan (1) Altered mental status: Status: Acute Qualifiers: Altered mental status type: unspecified Qualified Code(s): R41.82 - Altered mental status, unspecified (2) Acute cystitis: Status: Acute Qualifiers: Hematuria presence: without hematuria Qualified Code(s): N30.00 - Acute cystitis without hematuria (3) Atrial fibrillation: Status: Acute Qualifiers: Atrial fibrillation type: paroxysmal Qualified Code(s): I48.0 - Paroxysmal atrial fibrillation (4) Chronic anemia: Status: Acute (5) Hemochromatosis: Status: Acute (6) Portal hypertension: Status: Acute (7) Liver, cirrhosis, portal: Status: Acute (8) HTN (hypertension): Status: Acute Additional A&P Information 72-year-old gentleman past medical history of hemochromatosis leading to portal hypertension and liver cirrhosis, TIA, atrial fibrillation only on Eliquis not on aspirin since GI bleed in November 2018 presented with altered mental status for 1 day. Altered mental status :Could be multifactorial given extensive PMH. ABG negative for hypercapnea and hypoxia, Ammonia WNL, MRI brain results appreciated and negative for pathology for hemosiderosis vs CVA vs mass. As patient has improved drastically chances of meningitis and encephalitis are low so will start eliquis back. RSV awaited. Most likley related to metabolic encephalopathy related to UTI. Keppra levels awaited. Some how prolactin not done yesterday, now too late. Will c/w seizure precautions. Fall and aspiration precautions. Acute cystitis: Procalcitonin, lactate with reflex- WNL UCx growing enetrococcus species, Final spieciation likely tomorrow. As patient is improving continue with ceftriaxone. Will de-escalate as per the culture results Previous cx with marin-S E.coli CT abdomen negative for obstructive uropathy. A fib: Currently rate controlled, telemetry. Continue metoprolol, lasix Eliquis 5 mg BID. Chronic Anemia: Iron panel stable. Consistent with anemia of chronic disease. Hemoglobin stable. No signs of bleeding at any site. Continue with oral iron supplementation. Hypertension: Blood pressure well under control for now. Echocardiogram from December 2018 shows an EF of 60% with grade 1 diastolic dysfunction. Continue home medication of metoprolol and 40 mg Lasix. Patient is euvolemic at present. Continue chronic home medications like potassium, statins. We will change medications as per the clinical picture and results of the tests ordered. DVT ppx: Eliquis and Scds only Cardiac diet Code status: DNR/DNI/AND. Discussed with . POA is and daughter Likely d/c tomorrow. Attestations Medical Necessity Statement*: AMS Time Spent in Patient Care: Greater than 35 minutes Coding Level of Care Code Acute Maintenance And Custodian Supervisor for Chg Fwd Diagnoses Altered mental status R41.82 Altered mental status type: unspecified Acute cystitis N30.00 Hematuria presence: without hematuria Atrial fibrillation I48.0 Atrial fibrillation type: paroxysmal Chronic anemia D64.9 Hemochromatosis E83.119 Portal hypertension K76.6 Liver, cirrhosis, portal K74.69 HTN (hypertension) I10
[2019-10-29] MEDS: cefTRIAXone 1,000 MG in sodium chloride 0.9% (plus) 50 ML 100 MG IV (16:24)
[2019-10-29] MEDS: atorvastatin 40 mg Tablet 10 MG PO (21:08)
[2019-10-30] VITALS (8 sets, daily range): BP systolic 117–130; BP diastolic 69–77; PULSE 71–78; RESP 16–20; TEMP 36.4–36.9; O2SAT 91–97; BMI 37.8
[2019-10-30] MEDS: ipratropium-albuterol 3 mL Neb INHALATION ×2 (03:10→08:42)
[2019-10-30 05:08] LABS: Basophils # 0.1 10^3/uL (0.0-0.1); Basophils % 1.4 %; Eosinophils # 0.2 10^3/uL (0.0-0.8); Eosinophils % 3.9 %; Hematocrit 35.5 % (42.0-52.0); Hemoglobin 11.1 g/dL (11.7-16.6); Lymphocytes # 1.7 10^3/uL (0.8-4.8); Mean Corpuscular HGB Conc 31.3 g/dL (30.0-36.0); Mean Corpuscular Hemoglobin 31.7 pg (28.0-34.0); Mean Corpuscular Volume 101.4 fL (80-94); Mean Platelet Volume 11.2 fL (7.4-10.4); Monocytes # 0.6 10^3/uL (0.2-0.9); Monocytes % 14.1 %; Neutrophils # 1.8 10^3/uL (1.8-7.7); Neutrophils % 41.6 %; Nucleated Red Blood Cells % 0 %; Platelet Count 108 10^3/cmm (130-400); White Blood Count 4.4 10^3/uL (4.0-10.0)
[2019-10-30 05:36] LABS: Alanine Aminotransferase 18 U/L (0-41); Albumin Level 2.4 g/dL (3.5-5.2); Alkaline Phosphatase 102 IU/L (40-130); Anion Gap 10.9 (5-19); Aspartate Amino Transferase 49 U/L (0-40); Blood Urea Nitrogen 13 mg/dL (8-23); Calcium 8.8 mg/dL (8.5-10.5); Carbon Dioxide 28 mmol/L (22-29); Chloride 103 mmol/L (98-107); Glucose 115 mg/dL (65-115); Osmolality Calculated 283 mOsm/kg (285-295); Potassium 3.9 mmol/L (3.5-5.1); Sodium 138 mmol/L (136-145); Total Bilirubin 0.9 mg/dL (0.15-1.2); Total Protein 6.4 g/dL (6.6-8.7)
[2019-10-30] MEDS: apixaban 5 mg Tablet PO (08:13)
[2019-10-30] MEDS: levETIRAcetam 500 mg Tablet 750 MG PO (08:13)
[2019-10-30] MEDS: metoprolol succinate ER (24 HR) 25 mg Tablet 12.5 MG PO (08:13)
[2019-10-30] MEDS: ferrous sulfate EC 325 mg Tablet PO (08:13)
[2019-10-30] MEDS: FUROsemide 40 mg Tablet PO (08:13)
[2019-10-30] MEDS: pantoprazole DR 40 mg Tablet PO (08:14)
--- NOTE | 2019-10-30 11:53 | P.DS_ITS ---
Discharge Providers Date of Admission: 10/27/19 19:24 Date of Discharge: October 30, 2019 Attending Provider at Admission: Norm Mc MD Attending Provider at Discharge: Norm Mc MD Primary Care Provider: Hadley Vidales Diagnoses at Discharge Discharge Diagnosis (1) Altered mental status: Status: Acute Qualifiers: Altered mental status type: unspecified Qualified Code(s): R41.82 - Altered mental status, unspecified (2) Acute cystitis: Status: Acute Qualifiers: Hematuria presence: without hematuria Qualified Code(s): N30.00 - Acute cystitis without hematuria (3) Atrial fibrillation: Status: Acute Qualifiers: Atrial fibrillation type: paroxysmal Qualified Code(s): I48.0 - Paroxysmal atrial fibrillation (4) Chronic anemia: Status: Acute (5) Hemochromatosis: Status: Acute (6) Portal hypertension: Status: Acute (7) Liver, cirrhosis, portal: Status: Acute (8) HTN (hypertension): Status: Acute Reason for Visit Reason for Visit: Reason For Visit: [facility] Hospital Course Discharge Summary: Blayne Martinez is a 74 year old male with PMH hemochromatosis s/p phlebotomy (08/2018), signs of early liver cirrhosis and portal hypertension on ultrasound done in November 2018, chronic anemia, thrombocy topenia, HLD, BPH , atrial fibrillation with RVR on Elquis, TIA, carotid artery stenosis, hematemesis in November after which aspirin was withheld, pansensitive E. coli UTI. History from Ms. Willoughby over the phone. As per the , he was in his usual state of health until a week ago when he developed headache, more in the frontal region with some apparent discomfort in the abdomen. She is not aware if patient had any diarrhea. Patient has also been having headaches in frontal area, worse over last 2 days. He was in his usual state until last night. On waking up this am, he was confused, such as could not operate his phone, was going in wrong direction at home, so was brought to the ER for evaluation. As per , he has not had URI symptoms, sick contacts, cough, known tick bi iam. Last visited by son and his sister 3 weeks ago. No recent hiking. No known tick bites. No h/o bleeding at any site. No hematemesis or tere. Has been compliant with all medications. No h/o photophibia or weakness in any limb. In Er, he was hemodynamically stable, afebrile, no leukocytosis. Cr at baseline. LFT WNL. UA with leuko esterase and 15-20WBCs. Given extensive history of patient encephalopathy was ruled out with a normal ammonia levels, patient had a supple neck without any stiffness with no leukocytosis so bacterial meningitis was ruled out but viral encephalitis/meningitis was still entertained but lumbar culture could not be done as patient is on Eliquis at home which he had taken earlier in the morning. Respiratory viral panel was sent. Stroke was ruled out with a negative CT head. Patient also underwent MRI of brain because of history of hemochromatosis. Patient was started on ceftriaxone for possible UTI. Patient responded remarkably to the treatment and was at his baseline but the next day. Due to dramatic improvement patient did not undergo lumbar puncture on the following day. Patient's urine culture grew enterococcus which on confirmation to the lab is sensitive to levofloxacin so his antibiotic has been changed accordingly and is being discharged in hemodynamically stable condition. Levofloxacin has been dosed as per his renal functions. He has been discharged in hemodynamically stable condition with advised to follow-up with his primary care physician within next 1 week. Physical Exam 2 Narrative: EXAM NARRATIVE: General: Alert, awake, oriented x 3, Mildly forgetful. HEENT: PERRLA, pupils bilaterally equal and reactive. No photophobia Chest: Normal vesicular breath sounds, no added sounds, equal good air entry bilaterally CVS: S1-S2 regular, no murmurs, no tachycardia, no gallops, no rubs Abdomen: Soft, nontender, no organomegaly, bowel sounds present Neuro: No focal deficits, no facial deformity, power 5/5 in all limbs. No neck stiffness. Neck supple. Discharge Data Data Completed and Pending: Completed Studies During Hospitalization Category Date Time Status CT abdomen pelvis wo con 13414 Urge nt Cat Scan 10/27/19 17:[address] head wo con* 7 [id number] Urgent Cat Scan 10/27/19 15:34 Completed XR chest 1V lee ble [id number] Urgent Exams 10/27/19 15:34 Completed MR head wo con* [id number] Routine MRI 10/28/19 18:35 Completed Pending at discharge Category Date Time Status Blood Culture Sta t Lab 10/27/19 15:34 Results Levetiracetam Kep pra Stat Lab 10/27/19 17:42 Received Respiratory Viral Panel PCR Stat Lab 10/27/19 20:13 Received Urine Culture Sta t Lab 10/27/19 15:50 Results MR head wo con* [id number] Routine MRI 10/28/19 10:15 Unverified Labs from last 24 hours 10/30/19 10/30/19 04:34 04:34 WBC 4.4 RBC 3.50 L Hgb 11.1 L Hct 35.5 L MCV 101.4 H MCH 31.7 MCHC 31.3 RDW 15.0 Plt Count 108 L MPV 11.2 H Neut % (Auto) 41.6 Lymph % (Auto) 39.0 Emanuel % (Auto) 14.1 Eos % (Auto) 3.9 Baso % (Auto) 1.4 Neut # (Auto) 1.8 Lymph # (Auto) 1.7 Emanuel # (Auto) 0.6 Eos # (Auto) 0.2 Baso # (Auto) 0.1 Nucleated RBC % (a uto) 0 Nucleated RBCs # 0.0 Sodium 138 Potassium 3.9 Chloride 103 Carbon Dioxide 28 Anion Gap 10.9 BUN 13 Creatinine 1.1 Glucose 115 Calculated Osmolal ity 283 L Calcium 8.8 Total Bilirubin 0.9 AST 49 H ALT 18 Alkaline Phosphata se 102 Total Protein 6.4 L Albumin 2.4 L Globulin 4.0 Vitals: Last Vital Signs Temp 98.5 F 10/30/19 11:14 Pulse 77 10/30/19 11:14 Resp 18 10/30/19 11:14 BP 125/71 10/30/19 11:14 Pulse Ox 96 10/30/19 11:14 Discharge Plan Discharge Patient Disposition: Home, Self-Care Condition: Stable Prescriptions: New ferrous sulfate 325 mg (65 mg iron) Tablet,Delayed Release (Dr/Ec) 325 mg PO BIDWM Qty: 60 RF: 0 levofloxacin 750 mg tablet 750 mg PO DAILY 5 Days Qty: 5 RF: 0 Continued Eliquis 5 mg tablet 5 mg PO BID RF: 0 levetiracetam 750 mg tablet 750 mg PO BID RF: 0 albuterol sulfate 90 mcg/actuation HFA aerosol inhaler 2 puff INHALATION Q6H PRN (Reason: Shortness Of Breath) RF: 0 metoprolol succinate 25 mg tablet extended release 24 hr 12.5 mg PO DAILY RF: 0 pantoprazole 40 mg tablet,delayed release (DR/EC) 40 mg PO DAILY RF: 0 potassium chloride 20 mEq tablet extended release 10 meq PO DAILY RF: 0 furosemide 40 mg tablet 40 mg PO DAILY RF: 0 pravastatin 20 mg tablet 10 mg PO BEDTIME RF: 0 Discharge Orders: Discharge Order (Routine); Ordered 10/30/19 Ordered By: Norm Mc Referrals: Hadley Vidales [Primary Care Provider] - 11/11/19 1:30 pm (You have an appointment with Dr. Holden in [place] on November 10 at 1:30.) Discharge Diet: Cardiac Discharge Activity: Resume usual activity Patient Instructions: Iron Supplements (By mouth), Levofloxacin (By mouth), Urinary Tract Infection in Men (GEN), Portal Hypertension (GEN), Anemia (GEN) Discharge Date/Time: 10/30/19 13:11 Discharge Attestations Time Spent in Discharge Care*: greater than 30 min Specific Discharge Activities: Specific discharge activities: educating patient, educating and/or supporting family/caregiver, discussing with child support case officer/social workers/dc planners, documenting/other paperwork and evaluating patient/reviewing data Status at Discharge: Cognitive status at discharge: cognitively intact , Behavioral status at discharge: cooperative , Functional status at discharge: independent ambulation Overall status at discharge: patient is back to baseline Quality Metrics Clinical Quality Measures During this hospital stay, did patient experience: None Coding Level of Care Code Acute Narcotics Investigator for Pillo Edwards Diagnoses Altered mental status R41.82 Altered mental status type: unspecified Acute cystitis N30.00 Hematuria presence: without hematuria Atrial fibrillation I48.0 Atrial fibrillation type: paroxysmal Chronic anemia D64.9 Hemochromatosis E83.119 Portal hypertension K76.6 Liver, cirrhosis, portal K74.69 HTN (hypertension) I10
[2019-10-31 11:50] LABS: Levetiracetam Keppra 23.2 mcg/mL
[2019-10-31 19:46] LABS: Adenovirus Not Detected (Not Detected); Human Metapneumovirus Not Detected (Not Detected); Human Parainflu Virus 1 Not Detected (Not Detected); Human Parainflu Virus 2 Not Detected (Not Detected); Human Parainflu Virus 3 Not Detected (Not Detected); Human Rsv A Not Detected (Not Detected); Influenza A Not Detected (Not Detected); Influenza B Not Detected (Not Detected); Rhinovirus/Enterovirus Not Detected (Not Detected)
== END 2019-10-30 13:11 | disposition home or self-care (01) | DRG 690 ==
LOC: ER 16:44 → MEDSURG 17:15
PROVIDERS: Emergency Medicine; Admitting Provider Student in an Organized Health Care Education/Training Program; PCP Internal Medicine; Visit Provider Student in an Organized Health Care Education/Training Program
DX: N30.00 Acute cystitis without hematuria (principal); K76.6 Portal hypertension; I48.0 Paroxysmal atrial fibrillation; I65.29 Occlusion and stenosis of unspecified carotid artery; I10 Essential (primary) hypertension; K74.69 Other cirrhosis of liver; E83.119 Hemochromatosis, unspecified; D64.9 Anemia, unspecified; E78.5 Hyperlipidemia, unspecified; N40.0 Benign prostatic hyperplasia without lower urinary tract symptoms; Z86.73 Personal history of transient ischemic attack (TIA), and cerebral infarction without residual deficits; Z79.01 Long term (current) use of anticoagulants; B95.2 Enterococcus as the cause of diseases classified elsewhere; Z79.82 Long term (current) use of aspirin; Z66 Do not resuscitate; E88.01 Alpha-1-antitrypsin deficiency
CPT/HCPCS: 12345; 36415; 36600; 70450; 70551; 71045; 74176; 80051; 80053; 80177; 80306; 81001; 82140; 82810; 83036; 83540; 83550; 83605; 83880; 83986; 84145; 84443; 84484; 85025; 85610; 87040; 87077; 87086; 87186; 87641; 87804; 93005; 94640; 97110; 97161; 99283; G0378; J0696; J7030

== ENCOUNTER 2019-12-10 06:00 | Outpatient (RCR) | payer OTHER, SELFPAY | END 2019-12-10 23:59 | disposition home or self-care (01) | LOC: APT 06:00 | PROVIDERS: PCP Internal Medicine; Referring Provider Family Medicine; Visit Provider Family Medicine | DX: Z86.73 Personal history of transient ischemic attack (TIA), and cerebral infarction without residual deficits (principal); R26.81 Unsteadiness on feet | CPT/HCPCS: 97110; 97163 ==

== ENCOUNTER 2019-12-11 06:00 | Outpatient (RCR) | payer OTHER, SELFPAY | END 2020-01-10 23:59 | disposition home or self-care (01) | LOC: APT 06:00 | PROVIDERS: PCP Internal Medicine; Referring Provider Family Medicine; Visit Provider Family Medicine | DX: R26.89 Other abnormalities of gait and mobility (principal) | CPT/HCPCS: 97110; 97112 ==

== ENCOUNTER 2019-12-31 00:10 | Inpatient (IN) | payer OTHER, MEDICARE, SELFPAY ==
[2019-12-31] VITALS (11 sets, daily range): BP systolic 121–164; BP diastolic 71–94; PULSE 64–97; RESP 14–20; TEMP 36.4–36.9; O2SAT 89–99; BMI 33.5
--- NOTE | 2019-12-31 00:14 | XRR_ITS ---
PROCEDURE INFORMATION: Exam: XR Chest, 1 View Exam date and time: 12/31/2019 1:52 AM Age: 74 years old Clinical indication: Prior surgery; Surgery date: 6+ months; Surgery type: Loop recorder; Patient HX: AMS, confusion TECHNIQUE: Imaging protocol: XR of the chest Views: 1 view. COMPARISON: CR XR chest 1V portable [id number] 10/27/2019 3:59 PM FINDINGS: Lungs: Lungs are well aerated without a focal area of consolidation. Pleural space: Unremarkable. No pleural effusion. No pneumothorax. Heart/Mediastinum: The cardiac silhouette appears enlarged, some of which is magnification related to the AP projection. Bones/joints: Unremarkable. XR/XR chest 1V portable [id number] IMPRESSION: Lungs are well aerated without a focal area of consolidation.
--- NOTE | 2019-12-31 00:14 | CTR_ITS ---
PROCEDURE INFORMATION: Exam: CT Head Without Contrast Exam date and time: 12/31/2019 12:36 AM Age: 74 years old Clinical indication: Altered mental status/memory loss; Confusion or disorientation; Additional info: AMS TECHNIQUE: Imaging protocol: Computed tomography of the head without contrast. Radiation optimization: All CT scans at this facility use at least one of these dose optimization techniques: automated exposure control; mA and/or kV adjustment per patient size (includes targeted exams where dose is matched to clinical indication); or iterative reconstruction. COMPARISON: CT head wo con* [id number] 10/27/2019 3:54 PM RADIATION DOSE METRICS: Total DLP (mGy-cm): 646.47 FINDINGS: Brain: No acute intracranial hemorrhage or mass effect. There is mild decreased attenuation in the periventricular white matter, likely from microvascular disease. No definite acute infarct by CT. MRI could be more sensitive/specific for detection, as clinically directed. Ventricles: Ventricle size is normal for age. Bones/joints: No definite acute skull fracture. Sinuses: Included paranasal sinuses are essentially clear. Mastoid air cells: No significant acute finding. Vasculature: Vascular calcifications in the internal carotid arteries. CT/CT head wo con* [id number] IMPRESSION: 1. No acute intracranial hemorrhage or mass effect. 2. Changes of microvascular disease. 3. No definite acute infarct by CT, see above. 4. Other findings discussed above. Radiation Dose CTDIVOL = (mGy): DLP = 646.47 (mGy-cm)
--- NOTE | 2019-12-31 00:15 | ECG_ITS ---
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 Measurements Intervals Powell Rate: 66 P: 84 MD: 256 QRS: 54 QRSD: 90 T: 53 QT: 457 QTc: 480 Interpretive Statements SINUS RHYTHM WITH FIRST DEGREE AV BLOCK PROLONGED QT INTERVAL Compared to ECG 10/27/2019 22:18:36 Prolonged QT interval now present Electronically Signed On 12-31-2019 16:25:57 CDT by Finesse Rodriguez M.D. [email or web address]
--- NOTE | 2019-12-31 00:28 | W.ED.AMS ---
HPI - Altered Mental Status General: Chief Complaint: Altered Mental Status Stated Complaint: AMS Time Seen by Provider: 12/31/19 00:14 Source: EMS Mode of arrival: EMS Limitations: altered mental status History of Present Illness: HPI narrative: 74-year-old male who arrived by EMS for strokelike symptoms. Per patient's family patient became altered Monday is waxed and waned since then but is never returned to normal. Patient here was able to tell me his name but is quite somnolent and unable to give me any other answers or answer any my questions correctly. Patient is quite confused and will not follow any simple commands. Patient oxygen saturations normal along with blood pressure. He also has had no fevers. 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 Atrial fibrillation On Eliquis BPH (benign prostatic hyperplasia) Carotid artery stenosis Diverticulosis Duodenal ulcer Gastritis Hemochromatosis Hiatal hernia History of colon polyps Follow-up colonoscopy in 2023 HTN (hypertension) Hyperlipidemia Internal hemorrhoids Liver, cirrhosis, portal Portal hypertension S/P ORIF (open reduction internal fixation) fracture RIGHT HIP Status post placement of implantable loop recorder TIA (transient ischemic attack) Surgical History History of cystoscopy History of esophagogastroduodenoscopy (EGD) History of vasectomy S/P discectomy Status post colonoscopy with polypectomy Family History Mother Stroke Brother [id number] deficiency Denies family history of Anesthesia complication Bleeding disorder Social History Smoking and tobacco status: never smoked Alcohol intake: never Household members: spouse Marital status: Current occupational status: retired Physical Exam Const: COMMON NORMALS: negative for patient oriented x3 EXAM LIMITATIONS: altered mental status GENERAL APPEARANCE: lethargic and ill appearing ORIENTATION/CONSCIOUSNESS: Yes oriented to person and Yes lethargic; not oriented to place and not oriented to time HENMT: COMMON NORMALS: normocephalic and atraumatic HEAD & SCALP: normocephalic and atraumatic Eye: COMMON NORMALS: Equal, round and reactive pupils present and EOMs intact bilaterally PUPIL: Yes Equal, round and reactive pupils present Neck/C-Spine: COMMON NORMALS: full ROM and supple Chest: COMMONS NORMALS: normal inspection of the chest and normal palpation of entire chest wall Resp: COMMON NORMALS: normal respiratory effort, No retractions, No use of accessory muscles and clear to auscultation bilaterally AUSCULTATION: clear to auscultation bilaterally Cardio: COMMON NORMALS: regular rate, regular rhythm and No murmurs present (Cardio) RATE: regular rate RHYTHM: regular rhythm GI: COMMON NORMALS: Normal to inspection, nondistended, normoactive bowel sounds present, Soft to palpation, non-tender and no masses PALPATION: Yes Soft to palpation Extremity: COMMON NORMALS: normal to inspection and full ROM Neuro: COMMON NORMALS: moves all extremities and no focal motor deficits; negative for patient oriented x3 SENSORIUM/ORIENTATION: Yes oriented to person, No oriented to place, No oriented to time, Yes lethargic and Yes somnolent Psych: COMMON NORMALS: negative for mental status grossly normal Skin: COMMON NORMALS: no rashes or lesions noted and no wounds GENERAL SKIN EXAM: no rashes or lesions noted Course Vital Signs: Vital signs: Vital Signs Temperature 97.8 F 12/31/19 01:50 Pulse Rate 70 12/31/19 01:50 Respiratory Rate 16 12/31/19 01:50 Blood Pressure 164/94 12/31/19 01:50 Pulse Oximetry 95 12/31/19 01:50 MDM - Altered Mental Status MDM Narrative: Medical decision making narrative: Patient presents here with altered mental status and is quite confused here. He has an elevated ammonia level likely has hepatic encephalopathy. CT head is normal he has no signs of meningitis. I spoke to hospitalist will admit we will administer lactulose. Lab Data: Labs: Lab Results 12/31/19 12/31/19 12/31/19 Range/Units 00:27 00:27 00:27 WBC 4.9 (4.0-10.0) 10^3/ uL RBC 3.80 L (4.1-5.3) 10^6/u L Hgb 13.1 (11.7-16.6) g/dL Hct 40.0 L (42.0-52.0) % MCV 105.3 H (80-94) fL MCH 34.5 H (28.0-34.0) pg MCHC 32.8 (30.0-36.0) g/dL RDW 15.3 H (12.1-15.1) % Plt Count 79 L (130-400) 10^3/c mm MPV 11.3 H (7.4-10.4) fL Neut % (Auto) 50.1 % Lymph % (Auto) 33.3 % [place] % (Auto) 12.1 % Eos % (Auto) 3.1 % Baso % (Auto) 1.2 % Neut # (Auto) 2.43 (1.8-7.7) 10^3/u L Lymph # (Auto) 1.6 (0.8-4.8) 10^3/u L [place] # (Auto) 0.6 (0.2-0.9) 10^3/u L Eos # (Auto) 0.2 (0.0-0.8) 10^3/u L Baso # (Auto) 0.1 (0.0-0.1) 10^3/u L Nucleated RBC % (a uto) 0 % Nucleated RBCs # 0.0 /100WBC PT 22.20 H (10.5-13.3) SECO NDS INR 1.87 H (0.8-1.2) Sodium 142 (136-145) mmol/L Potassium 3.9 (3.5-5.1) mmol/L Chloride 107 (98-107) mmol/L Carbon Dioxide 28 (22-29) mmol/L Anion Gap 10.9 (5-19) BUN 17 (8-23) mg/dL Creatinine 1.1 (0.7-1.2) mg/dL Glucose 137 H (65-115) mg/dL Calculated Osmolal ity 293 (285-295) mOsm/k g Calcium 8.4 L (8.5-10.5) mg/dL Total Bilirubin 1.6 H (0.15-1.2) mg/dL AST 75 H (0-40) U/L ALT 29 (0-41) U/L Alkaline Phosphata se 100 (40-130) IU/L Ammonia (16-60) umol/L Troponin T Baselin e (0-15) ng/L Total Protein 6.4 L (6.6-8.7) g/dL Albumin 2.7 L (3.5-5.2) g/dL Globulin 3.7 (1.3-4.6) g/dL Salicylates < 0.3 L (3-10) mg/dL Acetaminophen < 5.0 L (10-30) ug/mL Ethyl Alcohol < 10 (0-10) mg/dL 12/31/19 12/31/19 Range/Units 00:27 00:27 WBC (4.0-10.0) 10^3/ uL RBC (4.1-5.3) 10^6/u L Hgb (11.7-16.6) g/dL Hct (42.0-52.0) % MCV (80-94) fL MCH (28.0-34.0) pg MCHC (30.0-36.0) g/dL RDW (12.1-15.1) % Plt Count (130-400) 10^3/c mm MPV (7.4-10.4) fL Neut % (Auto) % Lymph % (Auto) % [place] % (Auto) % Eos % (Auto) % Baso % (Auto) % Neut # (Auto) (1.8-7.7) 10^3/u L Lymph # (Auto) (0.8-4.8) 10^3/u L [place] # (Auto) (0.2-0.9) 10^3/u L Eos # (Auto) (0.0-0.8) 10^3/u L Baso # (Auto) (0.0-0.1) 10^3/u L Nucleated RBC % (a uto) % Nucleated RBCs # /100WBC PT (10.5-13.3) SECO NDS INR (0.8-1.2) Sodium (136-145) mmol/L Potassium (3.5-5.1) mmol/L Chloride (98-107) mmol/L Carbon Dioxide (22-29) mmol/L Anion Gap (5-19) BUN (8-23) mg/dL Creatinine (0.7-1.2) mg/dL Glucose (65-115) mg/dL Calculated Osmolal ity (285-295) mOsm/k g Calcium (8.5-10.5) mg/dL Total Bilirubin (0.15-1.2) mg/dL AST (0-40) U/L ALT (0-41) U/L Alkaline Phosphata se (40-130) IU/L Ammonia 282 H (16-60) umol/L Troponin T Baselin e 14 (0-15) ng/L Total Protein (6.6-8.7) g/dL Albumin (3.5-5.2) g/dL Globulin (1.3-4.6) g/dL Salicylates (3-10) mg/dL Acetaminophen (10-30) ug/mL Ethyl Alcohol (0-10) mg/dL Imaging Data^: CT Head: Attestation: I personally reviewed and interpreted this imaging study as follows: Radiologist's impression: [place] [address] CT Scan Report Signed Patient: Blayne Martinez Unit #: [id number] : 1945 Age/Sex: 74 / M ADM Date: 12/31/19 Loc: ER Room/Bed: Attending Dr: Ordering Provider/Ordering MD: Maricarmen Rivera MD Date of Service: 12/31/19 Procedure(s): CT head wo con* [id number] Accession Number(s): [id number] Report Number: [id number] PROCEDURE INFORMATION: Exam: CT Head Without Contrast Exam date and time: 12/31/2019 12:36 AM Age: 74 years old Clinical indication: Altered mental status/memory loss; Confusion or disorientation; Additional info: AMS TECHNIQUE: Imaging protocol: Computed tomography of the head without contrast. Radiation optimization: All CT scans at this facility use at least one of these dose optimization techniques: automated exposure control; mA and/or kV adjustment per patient size (includes targeted exams where dose is matched to clinical indication); or iterative reconstruction. COMPARISON: CT head wo con* [id number] 10/27/2019 3:54 PM RADIATION DOSE METRICS: Total DLP (mGy-cm): 646.47 FINDINGS: Brain: No acute intracranial hemorrhage or mass effect. There is mild decreased attenuation in the periventricular white matter, likely from microvascular disease. No definite acute infarct by CT. MRI could be more sensitive/specific for detection, as clinically directed. Ventricles: Ventricle size is normal for age. Bones/joints: No definite acute skull fracture. Sinuses: Included paranasal sinuses are essentially clear. Mastoid air cells: No significant acute finding. Vasculature: Vascular calcifications in the internal carotid arteries. CT/CT head wo con* [id number] IMPRESSION: 1. No acute intracranial hemorrhage or mass effect. 2. Changes of microvascular disease. 3. No definite acute infarct by CT, see above. 4. Other findings discussed above. CXR: Attestation: I personally reviewed and interpreted this imaging study as follows: My impression: no acute abnormality EKG Data^: EKG 1: Attestation: I personally reviewed and interpreted this EKG as follows: EKG interpretation date: 12/31/19 EKG interpretation time: 00:40 Interpretation: Normal sinus rhythm heart rate [address] or T wave abnormalities QRS 90 QTC 470 Discharge Plan Discharge Patient Disposition: Admitted As Inpatient Admit Provider: Paul Moeller Clinical Impression: Encephalopathy, hepatic Condition: Stable Referrals: Hadley Vidales [Primary Care Provider] - Coding Level of Care Code ED Crepe Laminator Operator for Chg Fwd Exam Comprehensive
[2019-12-31 00:50] LABS: Alanine Aminotransferase 29 U/L (0-41); Albumin Level 2.7 g/dL (3.5-5.2); Alkaline Phosphatase 100 IU/L (40-130); Anion Gap 10.9 (5-19); Aspartate Amino Transferase 75 U/L (0-40); Blood Urea Nitrogen 17 mg/dL (8-23); Calcium 8.4 mg/dL (8.5-10.5); Carbon Dioxide 28 mmol/L (22-29); Chloride 107 mmol/L (98-107); Globulin 3.7 g/dL (1.3-4.6); Glucose 137 mg/dL (65-115); Osmolality Calculated 293 mOsm/kg (285-295); Potassium 3.9 mmol/L (3.5-5.1); Sodium 142 mmol/L (136-145); Total Bilirubin 1.6 mg/dL (0.15-1.2); Total Protein 6.4 g/dL (6.6-8.7)
[2019-12-31 00:51] LABS: Ammonia 282 umol/L (16-60); Basophils # 0.1 10^3/uL (0.0-0.1); Basophils % 1.2 %; Eosinophils # 0.2 10^3/uL (0.0-0.8); Eosinophils % 3.1 %; Hemoglobin 13.1 g/dL (11.7-16.6); Lymphocytes # 1.6 10^3/uL (0.8-4.8); Lymphocytes % 33.3 %; Mean Corpuscular HGB Conc 32.8 g/dL (30.0-36.0); Mean Corpuscular Hemoglobin 34.5 pg (28.0-34.0); Mean Corpuscular Volume 105.3 fL (80-94); Mean Platelet Volume 11.3 fL (7.4-10.4); Monocytes # 0.6 10^3/uL (0.2-0.9); Monocytes % 12.1 %; Neutrophils # 2.43 10^3/uL (1.8-7.7); Neutrophils % 50.1 %; Nucleated Red Blood Cells % 0 %; Platelet Count 79 10^3/cmm (130-400); Red Cell Distribution Width 15.3 % (12.1-15.1); White Blood Count 4.9 10^3/uL (4.0-10.0)
[2019-12-31 01:06] LABS: Acetaminophen < 5.0 ug/mL (10-30); Alcohol Level < 10 mg/dL (0-10); Salicylate < 0.3 mg/dL (3-10)
[2019-12-31 01:09] LABS: INR 1.87 (0.8-1.2)
[2019-12-31 01:18] LABS: Troponin(5th) Baseline 14 ng/L (0-15)
--- NOTE | 2019-12-31 01:21 | PM.HP ---
Providers/Chief Complaint Primary Care Provider: Hadley Vidales Chief Complaint: AMS History of Present Illness Blayne Martinez is a 74 year old male who carries history of dementia, liver cirrhosis, hemochromatosis, portal hypertension, chronic thrombocytopenia, A. fib RVR on Eliquis, duodenal ulcer coming in today with chief complaint of altered mental status. He was discharged from the hospital in October 2019 for altered mental status, urine culture grew enterococcus which was sensitive to Levaquin. Lumbar puncture was not obtained because of Eliquis usage. Patient condition improved on antibiotics and he was discharged home on Levaquin 5-day course. Patient is not able to tell me any details. I called his . is endorsing that since Monday she has been noticing decline in his p.o. intake, he has been more lethargic and fatigued, he moves his bowel once every 2 days, he has been taking iron supplementation without bowel regimen. Recently research and evaluation analyst started Lasix for pedal edema. Today he went to the bathroom and spent a lot of time there and when checked on him he was leaning on the sink, he kept repeating few words, when he returned in his room, he sat in a chair and was very confused and lethargic. called EMS. On his arrival to the ED he had normal hemodynamics other than hypertension Ammonia level 282, meld score 16 CT head negative Chest x-ray does not show remarkable findings When I entered the room Patient kept repeating that he wanted to go to bathroom He had a very small dark color well formed stool Review of Systems General: Reports: ROS unobtainable due to medical condition (Hepatic encephalopathy) Medications/Allergies Home Medications Medication Instructions Recorded Confirmed Last Taken Type albuterol sulfate 90 mcg/actuation 2 puff INHALATION Q6H PRN 06/17/19 10/27/19 Unknown History aerosol inhaler metoprolol succinate 25 mg 12.5 mg PO DAILY tab 06/17/19 10/27/19 10/27/19 08:30 History tablet,extended release 24 hr pantoprazole 40 mg tablet,delayed 40 mg PO DAILY tab 06/17/19 10/27/19 10/27/19 08:30 History release potassium chloride 20 mEq 10 meq PO DAILY tab 06/17/19 10/27/19 10/27/19 08:30 History tablet,extended release apixaban 5 mg tablet 5 mg PO BID 06/18/19 10/27/19 10/27/19 08:30 History furosemide 40 mg tablet 40 mg PO DAILY tab 06/18/19 10/27/19 10/27/19 08:30 History levetiracetam 750 mg tablet 750 mg PO BID 06/18/19 10/27/19 10/27/19 08:30 History pravastatin 20 mg tablet 10 mg PO BEDTIME tab 06/18/19 10/27/19 10/26/19 History ferrous sulfate 325 mg PO BIDWM #60 tab 10/30/19 Unknown Rx Allergies Allergy/AdvReac Type Severity Reaction Status Date / Time No Known Allergies Allergy Verified 10/27/19 15:36 PFSH Acute PFSH: Medical History AAA (abdominal aortic aneurysm) 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 Atrial fibrillation On Eliquis BPH (benign prostatic hyperplasia) Carotid artery stenosis Diverticulosis Duodenal ulcer Gastritis Hemochromatosis Hiatal hernia History of colon polyps Follow-up colonoscopy in 2023 HTN (hypertension) Hyperlipidemia Internal hemorrhoids Liver, cirrhosis, portal Portal hypertension S/P ORIF (open reduction internal fixation) fracture RIGHT HIP Status post placement of implantable loop recorder TIA (transient ischemic attack) Surgical History History of cystoscopy History of esophagogastroduodenoscopy (EGD) History of vasectomy S/P discectomy Status post colonoscopy with polypectomy Family History Mother Stroke Brother [id number] deficiency Denies family history of Anesthesia complication Bleeding disorder Social History Smoking and tobacco status: never smoked Alcohol intake: never Household members: spouse Marital status: Current occupational status: retired Vitals/I&O/Wt Last Vital Signs Temp 98.0 F 12/31/19 00:16 Pulse 64 12/31/19 01:10 Resp 16 12/31/19 01:10 BP 141/77 12/31/19 01:10 Pulse Ox 94 12/31/19 01:10 Weight last 48 hrs Weight 108.862 kg Physical Exam Narrative: EXAM NARRATIVE: Head to toe examination Frail elderly male Demented, only oriented to place No focal deficit Seems very confused, he keeps repeating his words, he walked from commode to his bed, He is able to comprehend my question but apologizes for forgetting the details S1, S2 positive CHF signs with lower extremity edema, pedal edema 2+ Abdomen soft, nontender, Alejandre's sign negative Skin does not show any sign ischemia gangrene ulcer Saravia catheter has been removed, on removal of catheter there is mild bleeding around urethral meatus Bilateral breath sounds without adventitious sounds Limited neuro exam because of hepatic encephalopathy Agitated mood Forgetful with cognitive impairment Data : 12/31/19 00:27 12/31/19 00:27 A&P Assessment and plan (1) Encephalopathy, hepatic: Status: Acute (2) Liver, cirrhosis, portal: Status: Acute (3) Hemochromatosis: Status: Acute (4) Chronic anemia: Status: Acute (5) Leg swelling: Status: Acute (6) HTN (hypertension): Status: Acute Qualifiers: Hypertension type: essential hypertension Qualified Code(s): I10 - Essential (primary) hypertension (7) Duodenal ulcer: Status: Acute (8) Atrial fibrillation: Status: Acute Qualifiers: Atrial fibrillation type: paroxysmal Qualified Code(s): I48.0 - Paroxysmal atrial fibrillation (9) Encephalopathy due to ammonia: Status: Acute Additional A&P Information Acute hepatic encephalopathy with decompensated liver cirrhosis Meld score 16 Low albumin with PT 22, normal creatinine and sodium 142 Most likely cause is constipation due to iron supplement and lack of bowel regimen No electrolyte abnormality identified, patient has been afebrile, no signs of sepsis, abdomen is nontender Patient keeps complaining about urinary urgency Previous urine culture positive for enterococcus, I would use ceftriaxone Urine culture Urinalysis pending Ammonia level 280, add rifaximin, lactulose Ultrasound abdomen to look for ascites to rule out SBP Chronic anemia, Stable hemoglobin however in the ER he had 1 small melanotic/dark-colored well formed stool Sample sent for occult blood test however he has been on iron supplementation Previous history of duodenal ulcer, continue protonix Chronic thrombocytopenia secondary to portal hypertension He has been on Eliquis Hemoglobin stable No active bleeding A. fib without RVR Continue metoprolol, hold Eliquis in case we need to rule out SBP in case of abdominal ascites detected on ultrasound of abdomen Considering his dementia and liver cirrhosis currently we consider use of anticoagulation Lower extremity swelling I would add Lasix 40 mg daily along with potassium supplementation Low-dose spironolactone Delirium with underlying dementia Hepatic encephalopathy Rule out UTI and SBP Currently requiring one-to-one observation Fall precaution DVT prophylaxis not needed: Holding Eliquis for now in case we need diagnostic paracentesis, would use SCDs Reconsider use of anticoagulation considering his comorbid conditions DNR/DNI Cardiac diet Attestations Medical Necessity Statement*: Anticipating stay in the hospital to cross more than 2 midnights currently has hepatic encephalopathy due to decompensated liver cirrhosis due to constipation SBP to be ruled out Time Spent in Patient Care: (>than 50% of time spent in counselling and/or direct pt care on unit). 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
[2019-12-31 02:13] LABS: Blood Urine 2+ (Negative); Glucose Urine UA Norm (Normal); Ketones Urine Negative (Negative); Nitrate Urine Negative (Negative); Protein Urine Neg (Negative); Urine Appearance Cloudy (CLEAR); Urine Color Yellow (Yellow); pH Urine 7 (5-7)
[2019-12-31 02:14] LABS: Add Urine Culture? Yes; Add Urine Microscopic? YES; Bacteria Urine 2+; Bilirubin Urine 1+ (NEGATIVE); Leukocyte Esterase Urine Trace (Negative); Mucus Urine 1+; Squamous Epithelial Cell Urine 0-4 (0-5); Urobilinogen Urine 8 mg/dL (Negative); WBC Urine 25-40 /hpf (0-5)
[2019-12-31 02:15] LABS: Amphetamines Screen Urine Negative (Negative); Barbiturates Screen Urine Negative (Negative); Benzodiazepines Screen Urine Negative (Negative); Cocaine Screen Urine Negative (Negative); Opiate Screen Urine Negative (Negative); PCP Screen Urine Negative (Negative); THC Screen Urine Negative (Negative)
[2019-12-31 02:22] LABS: Thyroid Stimulating Hormone 2.99 uIU/mL (0.27-4.20)
[2019-12-31 02:45] LABS: Troponin 5 2HR 14.77 ng/L (0-15); Troponin 5 2HR Delta 0.77 ABS# (0-10)
[2019-12-31 06:30] LABS: Basophils % 0.8 %; Eosinophils # 0.1 10^3/uL (0.0-0.8); Eosinophils % 1.5 %; Hematocrit 39.8 % (42.0-52.0); Hemoglobin 12.8 g/dL (11.7-16.6); Lymphocytes % 37.1 %; Mean Corpuscular HGB Conc 32.2 g/dL (30.0-36.0); Mean Corpuscular Hemoglobin 34.5 pg (28.0-34.0); Mean Corpuscular Volume 107.3 fL (80-94); Mean Platelet Volume 11.6 fL (7.4-10.4); Monocytes # 0.6 10^3/uL (0.2-0.9); Monocytes % 11.4 %; Neutrophils # 2.59 10^3/uL (1.8-7.7); Nucleated Red Blood Cells % 0 %; Platelet Count 76 10^3/cmm (130-400); Red Blood Count 3.71 10^6/uL (4.1-5.3); Red Cell Distribution Width 15.1 % (12.1-15.1); White Blood Count 5.3 10^3/uL (4.0-10.0)
[2019-12-31] MEDS: pantoprazole DR 40 mg Tablet PO (08:48)
[2019-12-31] MEDS: levETIRAcetam 500 mg Tablet 750 MG PO ×2 (08:48→17:03)
[2019-12-31] MEDS: FUROsemide 40 mg Tablet PO (08:49)
[2019-12-31] MEDS: lactulose oral liq 20 gm/30 mL UDC 30 GM PO ×3 (08:49→21:11)
[2019-12-31] MEDS: potassium chloride ER 10 mEq Tablet PO (08:49)
[2019-12-31] MEDS: metoprolol succinate ER (24 HR) 25 mg Tablet 12.5 MG PO (08:49)
[2019-12-31] MEDS: cefTRIAXone 1,000 MG in sodium chloride 0.9% (plus) 50 ML 100 MG IV (09:03)
--- NOTE | 2019-12-31 10:50 | PC.CHAP ---
Pastoral Care Encounter/Spiritual Assessment Type of Contact [] Declined foundation drill operator visit [] Patient/Family/Request visit [] Outpatient visit [] Follow-up visit [] Physician referral [] Code/Alert [] Routine visit [] Staff referral [] Actively dying [] Patient sleeping [] Family support [] [] Out of room [] Palliative care [] [] Receiving care in room [] Pre-surgical visit [] Trauma [] Long length of stay [] ICU visit [x] Other: Not able to communicate Relational/Emotional Strength [] Patient feels connected with others/family/visitors/staff [] Distress [] Loneliness/isolation [] Abandonment Spirituality of Patient [] Person of Shahnaz [] Attends Restorationism of their Shahnaz [] Believes in Prayer [] Reads Bible or Jew materials [] There are Spiritual issues to be addressed Staff Development Nurse Interventions [] Prayer [] Active listening [] Non-anxious presence [] Spiritual/emotional support [] Crisis/trauma care [] Spiritual counseling [] Bereavement support [] Provided bereavement packet [] Provided Bible/devotional materials [] Provided toy/stuffed animal, coloring book to patient or family member [] Provided Communion [] Anointing/[place] [] Salvation [] Completed spiritual assessment [] Other: Impact on Illness or Injury [] Angry [] Fearful [] Anxious [] Often cries [] Exhaustion [] Unable to work [] Unable to attend anglican [] Unable to walk/stand [] Unable to read [] Unable to drive [] Unable to eat/drink [] Unable to sleep [] Unable to be with family [X] Patient intubated [] Other: Summary Not able to communicate Time spent with patient 5 mins
--- NOTE | 2019-12-31 11:02 | PC.NURSE ---
Updated family This nurse called family member, Fartun Schumacher. updated on Blayne's plan of care. Fartun verbalized understanding, all questions were answer. Physician notified.
--- NOTE | 2019-12-31 12:03 | P.PN_ITS ---
Subjective Subjective: Interval history: History and physical reviewed. Patient denies any complaints. Medications: Reviewed: Yes Vitals/I&O/Wt Last Vital Signs Temp 98.1 F 12/31/19 07:04 Pulse 80 12/31/19 10:04 Resp 16 12/31/19 10:04 BP 158/83 12/31/19 07:04 Pulse Ox 94 12/31/19 10:04 12/30/19 12/31/19 12/31/19 22:59 06:59 14:59 Intake Total 120 / 120 Output Total 0 / 0 Balance 0 / 0 120 / 120 Weight last 48 hrs Weight 108.862 kg Physical Exam Narrative: EXAM NARRATIVE: General exam no apparent distress. Introduces himself. Appears sleepy. Cardiovascular regular rate and rhythm without murmur Lungs clear no wheezing or crackles Abdomen is soft with positive bowel sounds. Nontender. No evidence of ascites on exam. Extremities no cyanosis clubbing or edema Data : 12/31/19 05:56 12/31/19 05:56 A&P Assessment and plan (1) Encephalopathy, hepatic: Continue lactulose Continue rifaximin Status: Acute (2) Liver, cirrhosis, portal: Continue Lasix Status: Acute (3) Hemochromatosis: Status: Acute (4) Chronic anemia: Hemoglobin stable Status: Acute (5) Leg swelling: Status: Acute (6) HTN (hypertension): Status: Acute Qualifiers: Hypertension type: essential hypertension Qualified Code(s): I10 - Essential (primary) hypertension (7) Duodenal ulcer: Status: Acute (8) Atrial fibrillation: Rate controlled. Continue Eliquis Status: Acute Qualifiers: Atrial fibrillation type: paroxysmal Qualified Code(s): I48.0 - Parox ysmal atrial fibrillation (9) Encephalopathy due to ammonia: Rifaximin, lactulose Status: Acute Additional A&P Information Elevated creatinine, low sodium on laboratory this morning drastically different from admission. I suspect this is a lab error. Repeat BMP pending History of seizure disorder. On Keppra. UTI. Continue Rocephin DVT prophylaxis. Holding Eliquis for now in case paracentesis needed DNR/DNI Attestations Medical Necessity Statement*: Needs continued close follow-up of hepatic encephalopathy with mental status changes on admission, improving with initiati on of lactulose and rifaximin, awaiting return to baseline. 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
[2019-12-31 13:44] LABS: Sodium 141 mmol/L (136-145)
[2019-12-31 13:45] LABS: Potassium 3.8 mmol/L (3.5-5.1)
[2019-12-31 13:46] LABS: Anion Gap 10.8 (5-19); Blood Urea Nitrogen 18 mg/dL (8-23); Carbon Dioxide 27 mmol/L (22-29); Chloride 107 mmol/L (98-107); Glucose 124 mg/dL (65-115); Osmolality Calculated 290 mOsm/kg (285-295)
[2019-12-31 13:47] LABS: Alanine Aminotransferase 30 U/L (0-41); Aspartate Amino Transferase 78 U/L (0-40); Calcium 9.2 mg/dL (8.5-10.5); Total Bilirubin 1.9 mg/dL (0.15-1.2); Total Protein 6.6 g/dL (6.6-8.7)
[2019-12-31 13:48] LABS: Albumin Level 2.7 g/dL (3.5-5.2); Alkaline Phosphatase 98 IU/L (40-130); Globulin 3.9 g/dL (1.3-4.6)
[2020-01-01 03:00] VITALS: BP 130/75; PULSE 65; RESP 20; TEMP 36.9; O2SAT 98
[2020-01-01 04:12] LABS: Basophils # 0.1 10^3/uL (0.0-0.1); Eosinophils # 0.2 10^3/uL (0.0-0.8); Eosinophils % 2.6 %; Hematocrit 42.1 % (42.0-52.0); Hemoglobin 13.8 g/dL (11.7-16.6); Lymphocytes # 2.3 10^3/uL (0.8-4.8); Lymphocytes % 39.4 %; Mean Corpuscular HGB Conc 32.8 g/dL (30.0-36.0); Mean Corpuscular Hemoglobin 35.8 pg (28.0-34.0); Mean Corpuscular Volume 109.1 fL (80-94); Mean Platelet Volume 11.8 fL (7.4-10.4); Monocytes # 0.8 10^3/uL (0.2-0.9); Monocytes % 14.3 %; Neutrophils # 2.48 10^3/uL (1.8-7.7); Neutrophils % 42.7 %; Nucleated Red Blood Cells % 0 %; Platelet Count 57 10^3/cmm (130-400); Red Blood Count 3.86 10^6/uL (4.1-5.3); Red Cell Distribution Width 15.7 % (12.1-15.1); White Blood Count 5.8 10^3/uL (4.0-10.0)
[2020-01-01 04:33] LABS: Alanine Aminotransferase 35 U/L (0-41); Albumin Level 2.7 g/dL (3.5-5.2); Alkaline Phosphatase 102 IU/L (40-130); Aspartate Amino Transferase 95 U/L (0-40); Blood Urea Nitrogen 16 mg/dL (8-23); Calcium 8.6 mg/dL (8.5-10.5); Carbon Dioxide 27 mmol/L (22-29); Chloride 106 mmol/L (98-107); Globulin 4.5 g/dL (1.3-4.6); Glucose 117 mg/dL (65-115); Osmolality Calculated 289 mOsm/kg (285-295); Sodium 141 mmol/L (136-145); Total Bilirubin 2.1 mg/dL (0.15-1.2); Total Protein 7.2 g/dL (6.6-8.7)
[2020-01-01 04:34] LABS: Ammonia 70 umol/L (16-60)
[2020-01-01 04:37] LABS: Anion Gap 12.2 (5-19); Potassium 4.2 mmol/L (3.5-5.1)
[2020-01-01 07:00] VITALS: BP 127/71; PULSE 67; RESP 18; TEMP 36.9; O2SAT 97
[2020-01-01 07:43] VITALS: PULSE 72; RESP 18; O2SAT 94
[2020-01-01] MEDS: lactulose oral liq 20 gm/30 mL UDC 30 GM PO (08:18)
[2020-01-01] MEDS: pantoprazole DR 40 mg Tablet PO (08:18)
[2020-01-01] MEDS: cefTRIAXone 1,000 MG in sodium chloride 0.9% (plus) 50 ML 100 MG IV (08:18)
[2020-01-01] MEDS: levETIRAcetam 500 mg Tablet 750 MG PO (08:19)
[2020-01-01] MEDS: potassium chloride ER 10 mEq Tablet PO (08:20)
[2020-01-01] MEDS: FUROsemide 40 mg Tablet PO (08:20)
[2020-01-01] MEDS: metoprolol succinate ER (24 HR) 25 mg Tablet 12.5 MG PO (08:20)
--- NOTE | 2020-01-01 10:56 | PM.DCS ---
Discharge Providers Date of Admission: 12/31/19 01:15 Date of Discharge: January 01, 2020 Attending Provider at Admission: Paul Moeller MD Attending Provider at Discharge: Baljit Felton MD Primary Care Provider: Hadley Vidales Diagnoses at Discharge Discharge Diagnosis (1) Encephalopathy, hepatic: Status: Acute Problem details: Significantly improved with initiation of lactulose and rifaximin (2) Liver, cirrhosis, portal: Status: Acute (3) Hemochromatosis: Status: Acute (4) Chronic anemia: Status: Acute (5) Leg swelling: Status: Acute (6) HTN (hypertension): Status: Acute Qualifiers: Hypertension type: essential hypertension Qualified Code(s): I10 - Essential (primary) hypertension (7) Duodenal ulcer: Status: Acute (8) Atrial fibrillation: Status: Acute Problem details: On Eliquis Qualifiers: Atrial fibrillation type: paroxysmal Qualified Code(s): I48.0 - Paroxysmal atrial fibrillation (9) Encephalopathy due to ammonia: Status: Acute Reason for Visit Reason for Visit: [facility] Hospital Course Hospital Course: Blayne is a 74-year-old white male with known cirrhosis who presented with increasing confusion. Ammonia level was markedly high. Urine showed possible infection. No other evidence of infection was noted and no obvious ascites on physical exam and no abdominal pain. CT head no acute findings. He was hydrated, placed on lactulose and rifaximin, and placed on Rocephin for possible UTI. With these treatments he rapidly improved. Mental status was back to baseline by December 31 confirmed by his . Ammonia level was down to around 70. He will be discharged on lactulose and rifaximin. Urine was growing 50,000 colony-forming units of enterococcus at discharge so he will finish a course of ampicillin regarding this. Physical Exam Narrative: EXAM NARRATIVE: General exam no apparent distress Cardiovascular regular rate and rhythm without murmur Lungs clear Abdomen is soft with positive bowel sounds. No obvious ascites Extremities no cyanosis clubbing. 1+ edema noted bilaterally. Discharge Data Data Completed and Pending: Completed Studies During Hospitalization Category Date Time Status CT head wo con* 7 0450 Urgent Cat Scan 12/31/19 00:14 Completed XR chest 1V lee ble [id number] Urgent Exams 12/31/19 00:14 Completed Pending at discharge Category Date Time Status Urine Culture Sta t Lab 12/31/19 01:45 Results Labs from last 24 hours 01/01/20 01/01/20 01/01/20 03:45 03:45 03:45 WBC 5.8 RBC 3.86 L Hgb 13.8 Hct 42.1 MCV 109.1 H MCH 35.8 H MCHC 32.8 RDW 15.7 H Plt Count 57 L MPV 11.8 H Neut % (Auto) 42.7 Lymph % (Auto) 39.4 [place] % (Auto) 14.3 Eos % (Auto) 2.6 Baso % (Auto) 1.0 Neut # (Auto) 2.48 Lymph # (Auto) 2.3 [place] # (Auto) 0.8 Eos # (Auto) 0.2 Baso # (Auto) 0.1 Nucleated RBC % (a uto) 0 Nucleated RBCs # 0.0 Sodium 141 Potassium 4.2 Chloride 106 Carbon Dioxide 27 Anion Gap 12.2 BUN 16 Creatinine 1.0 Glucose 117 H Calculated Osmolal ity 289 Calcium 8.6 Total Bilirubin 2.1 H AST 95 H ALT 35 Alkaline Phosphata se 102 Ammonia 70 H Total Protein 7.2 Albumin 2.7 L Globulin 4.5 12/31/19 09:00 WBC RBC Hgb Hct MCV MCH MCHC RDW Plt Count MPV Neut % (Auto) Lymph % (Auto) [place] % (Auto) Eos % (Auto) Baso % (Auto) Neut # (Auto) Lymph # (Auto) [place] # (Auto) Eos # (Auto) Baso # (Auto) Nucleated RBC % (a uto) Nucleated RBCs # Sodium 141 Potassium 3.8 Chloride 107 Carbon Dioxide 27 Anion Gap 10.8 BUN 18 Creatinine 1.0 Glucose 124 H Calculated Osmolal ity 290 Calcium 9.2 Total Bilirubin 1.9 H AST 78 H ALT 30 Alkaline Phosphata se 98 Ammonia Total Protein 6.6 Albumin 2.7 L Globulin 3.9 Vitals: Last Vital Signs Temp 98.4 F 01/01/20 07:00 Pulse 72 01/01/20 07:43 Resp 18 01/01/20 07:43 BP 127/71 01/01/20 07:00 Pulse Ox 94 01/01/20 07:43 Discharge Plan Discharge Patient Disposition: Home, Self-Care Condition: Stable Prescriptions: New lactulose 20 gram/30 mL Solution 30 g PO TID Qty: 1600 RF: 0 Xifaxan 550 mg Tablet 550 mg PO BID Qty: 60 RF: 0 ampicillin 500 mg capsule 500 mg PO QID Qty: 28 RF: 0 Continued Eliquis 5 mg tablet 5 mg PO BID RF: 0 levetiracetam 750 mg tablet 750 mg PO BID RF: 0 albuterol sulfate 90 mcg/actuation HFA aerosol inhaler 2 puff INHALATION Q6H PRN (Reason: Shortness Of Breath) RF: 0 metoprolol succinate 25 mg tablet extended release 24 hr 12.5 mg PO DAILY RF: 0 pantoprazole 40 mg tablet,delayed release (DR/EC) 40 mg PO DAILY RF: 0 potassium chloride 20 mEq tablet extended release 10 meq PO DAILY RF: 0 furosemide 40 mg tablet 40 mg PO DAILY RF: 0 pravastatin 20 mg tablet 10 mg PO BEDTIME RF: 0 folic acid 1 mg Tablet 1 mg PO DAILY RF: 0 ferrous sulfate 325 mg (65 mg iron) Tablet,Delayed Release (Dr/Ec) 325 mg PO BIDWM Qty: 60 RF: 0 Referrals: Hadley Vidales [Primary Care Provider] - 4-7 days Discharge Diet: Cardiac Discharge Activity: Increase activity as tolerated Activity Restrictions/Additional Instructions: Take all medicine as prescribed Avoid high-protein meals Follow-up with primary care provider 3 to 5 days Discharge Attestations Time Spent in Discharge Care*: greater than 30 min Status at Discharge: Cognitive status at discharge: cognitively intact, Behavioral status at discharge: cooperative, Quality Metrics Clinical Quality Measures During this hospital stay, did patient experience: None Coding Level of Care Code Acute Medicaid Business Analyst for [facility] Diagnoses Encephalopathy, hepatic K72.90 Liver, cirrhosis, portal K74.69 Hemochromatosis E83.119 Chronic anemia D64.9 Leg swelling M79.89 HTN (hypertension) I10 Hypertension type: essential hypertension Duodenal ulcer K26.9 Atrial fibrillation I48.0 Atrial fibrillation type: paroxysmal Encephalopathy due to ammonia T59.891A; G92
[2020-01-01 11:00] VITALS: BP 127/72; PULSE 67; RESP 16; TEMP 36.7; O2SAT 97
--- NOTE | 2020-01-01 11:02 | PC.CHAP ---
Pastoral Care Encounter/Spiritual Assessment Type of Contact [] Declined charge hand visit [] Patient/Family/Request visit [] Outpatient visit [] Follow-up visit [] Physician referral [] Code/Alert [x] Routine visit [] Staff referral [] Actively dying [] Patient sleeping [] Family support [] [] Out of room [] Palliative care [] [] Receiving care in room [] Pre-surgical visit [] Trauma [] Long length of stay [] ICU visit [] Other: Relational/Emotional Strength [] Patient feels connected with others/family/visitors/staff [] Distress [] Loneliness/isolation [] Abandonment Spirituality of Patient [] Person of Shahnaz [] Attends Sikhism of their Shahnaz [] Believes in Prayer [] Reads Bible or Hoahaoism materials [] There are Spiritual issues to be addressed Insurance Defense Attorney Interventions [x] Prayer [x] Active listening [x] Non-anxious presence [x] Spiritual/emotional support [] Crisis/trauma care [] Spiritual counseling [] Bereavement support [] Provided bereavement packet [] Provided Bible/devotional materials [] Provided toy/stuffed animal, coloring book to patient or family member [] Provided Communion [] Anointing/[place] [] Salvation [x] Completed spiritual assessment [] Other: Impact on Illness or Injury [] Angry [] Fearful [] Anxious [] Often cries [] Exhaustion [] Unable to work [] Unable to attend oriental orthodox [] Unable to walk/stand [] Unable to read [] Unable to drive [] Unable to eat/drink [] Unable to sleep [] Unable to be with family [] Patient intubated [] Other: Summary Setter present. Patient resting well. Time spent with patient 10 min
[2020-01-01 14:02] VITALS: BP 127/72; PULSE 67; RESP 16; TEMP 36.7; O2SAT 97
--- NOTE | 2020-01-02 13:58 | PC.SOCIAL ---
Prior Auth has been obtained for Xifaxan. Updated [facility] and . was very appreciative. 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 Auth # [id number] Start Date 01/01/2020 End date 07/03/2020.
== END 2020-01-01 14:03 | disposition home or self-care (01) | DRG 441 ==
LOC: ER 01:13 → MEDSURG 01:51
PROVIDERS: Emergency Medicine; Admitting Provider Internal Medicine; PCP Internal Medicine; Visit Provider Internal Medicine
DX: K72.00 Acute and subacute hepatic failure without coma (principal); G93.41 Metabolic encephalopathy; K76.6 Portal hypertension; N39.0 Urinary tract infection, site not specified; K74.69 Other cirrhosis of liver; E83.119 Hemochromatosis, unspecified; D64.9 Anemia, unspecified; Z66 Do not resuscitate; M79.89 Other specified soft tissue disorders; I10 Essential (primary) hypertension; K26.9 Duodenal ulcer, unspecified as acute or chronic, without hemorrhage or perforation; I48.0 Paroxysmal atrial fibrillation; Z79.01 Long term (current) use of anticoagulants; F03.90 Unspecified dementia, unspecified severity, without behavioral disturbance, psychotic disturbance, mood disturbance, and anxiety; N40.0 Benign prostatic hyperplasia without lower urinary tract symptoms; E78.5 Hyperlipidemia, unspecified; I65.29 Occlusion and stenosis of unspecified carotid artery; Z86.73 Personal history of transient ischemic attack (TIA), and cerebral infarction without residual deficits
CPT/HCPCS: 12345; 36415; 70450; 71045; 80053; 80306; 80307; 81001; 81003; 82140; 84443; 84484; 85025; 85610; 87077; 87086; 87186; 93005; 99283; J0696

== ENCOUNTER → 2020-02-13 09:21 | Outpatient (BNVA) | payer OTHER, MEDICARE, SELFPAY | PROVIDERS: PCP Family Medicine; Visit Provider Internal Medicine Cardiovascular Disease | DX: M79.89 Other specified soft tissue disorders (principal); K74.69 Other cirrhosis of liver; D64.9 Anemia, unspecified; I50.33 Acute on chronic diastolic (congestive) heart failure; I48.0 Paroxysmal atrial fibrillation; I11.0 Hypertensive heart disease with heart failure; I10 Essential (primary) hypertension; Z79.899 Other long term (current) drug therapy | CPT/HCPCS: 80053; 83735; 83880; 85025 ==

== ENCOUNTER 2020-03-04 12:54 | Outpatient (CLI) | payer OTHER, MEDICARE, SELFPAY ==
[2020-03-04 14:33] LABS: Basophils # 0.1 10^3/uL (0.0-0.1); Basophils % 1.1 %; Eosinophils # 0.3 10^3/uL (0.0-0.8); Eosinophils % 5.5 %; Hematocrit 41.4 % (42.0-52.0); Hemoglobin 13.9 g/dL (11.7-16.6); Lymphocytes # 2.2 10^3/uL (0.8-4.8); Lymphocytes % 41.4 %; Mean Corpuscular HGB Conc 33.6 g/dL (30.0-36.0); Mean Corpuscular Hemoglobin 36.8 pg (28.0-34.0); Mean Corpuscular Volume 109.5 fL (80-94); Mean Platelet Volume 11.3 fL (7.4-10.4); Monocytes # 0.6 10^3/uL (0.2-0.9); Monocytes % 11.7 %; Neutrophils # 2.14 10^3/uL (1.8-7.7); Neutrophils % 40.1 %; Nucleated Red Blood Cells % 0 %; Platelet Count 84 10^3/cmm (130-400); Red Blood Count 3.78 10^6/uL (4.1-5.3); Red Cell Distribution Width 13.2 % (12.1-15.1); White Blood Count 5.3 10^3/uL (4.0-10.0)
[2020-03-04 16:21] LABS: LAB Peripheral Smear Sent for Review
--- NOTE | 2020-03-06 13:38 | ONC CON_ITS ---
Dr. Shukla New Patient Note Patient: Blayne Martinez Unit #: [id number]: [id number] Dicatated By: Fanta Shukla M.D.Date of Visit: Mar 04, 2020 Onc MED New Patient/Consult Referring Physician: Jessica Moreira History of Present Illness: Mr. Blayne Martinez, is a 74-year-old gentleman with a history of iron overload but hemochromatosis was ruled out. And was treated with regular phlebotomies at [facility] due to elevated transaminases. 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 As per patient he was admitted to hospital in December 2018 with episode of upper GI bleeding requiring 3 units of blood transfusion and underwent EGD on December 22, 2018 which showed 2 cm duodenal ulcer in the posterior bulb with an adherent clot. He was also found to have known erosive antral gastropathy. Follow-up EGD done on January 29, 2019 showed complete healing of duodenal ulcer but continued to have non-erosive antral gastropathy. Patient also had colonoscopy done on January 29, 2019 which revealed 5 mm sessile descending colon tubular adenoma. And he was recommended follow-up colonoscopy in 5 years, in 2023. Patient underwent FibroScan on March 08, 2019 which showed CAP score of 297, which was indicative of moderate to severe steatosis. The median elastography measurement was 22.3K PA, which is indicating of advanced fibrosis with underlying liver cirrhosis, patient has been followed by foster care case manager in [place]. In October 2019 patient went to [facility] ER with headaches and MRI scan of the head was done which was unremarkable for intracranial bleed His lab work done on May 10, 2018 showed white blood count 5.5 hemoglobin 15.8 hematocrit 47.4 platelets 128,000 and follow-up labs done on October 03, 2018 showed platelet count 95,000 with a normal white blood count and hemoglobin on October 17, 2018 is platelet count was 104,000 on November 08, 2019, count was 98,000 and on February 06, 2020 platelet count dropped to 76,000 with normal hemoglobin. Patient denies any evidence of nosebleed or gum bleed or hematuria or recent episode of melena or hematochezia but patient is on Eliquis for atrial fibrillation and again as mentioned above history of duodenal ulcer but follow-up EGD done on January 2019 showed healing of duodenal ulcer. Patient has mild thrombocytopenia in 2017 and 19 now progressive but still with mild to moderate isolated thrombocytopenia. As per patient and his he was started on Keppra in October 2018 with questionable seizure but patient said he never had any seizure in the recent past. Patient had CT scan of abdomen pelvis done on October 27, 2019 which showed subtle nodularity of hepatic contour, suggestive of cirrhosis, spleen unremarkable no central lymphadenopathy Patient denies any specific complaints today, denies any melena hematochezia, denies any hemoptysis or hematemesis, denies any nosebleed or gum bleed, denies any petechiae but old healing ecchymosis involving upper extremities. Denies any night sweats, denies any peripheral lymphadenopathy, denies any weight loss. Past Medical History: Mr. Martinez's medical history consists of abdominal aortic aneurysm, atrial fibrillation, bph, cirrhosis, hyperlipidemia, hypertension, and osteoarthritis. Past Surgical History: Mr. Martinez's surgical/procedural history consists of colonoscopy, hip replacement, and liver biopsy. Medications: Albuterol Sulfate Aerosol Powder, Breath Activated Inhalation, Eliquis 1 Tablet (of 5 mg) Oral b.i.d., Ferrous Sulfate 1 Tablet (of 325 (65 fe) mg) Oral b.i.d., Folic Acid 1 Tablet (of 1 mg) Oral daily, Furosemide 1 Tablet (of 40 mg) Oral daily, Klor-Con 10 1 Tablet (of 10 meq) Tablet, controlled release Oral daily, Lactulose 30 g (of 10 g) Pack Oral t.i.d., levETIRAcetam 1 Tablet (of 750 mg) Oral b.i.d., Metoprolol Succinate ER 12.5 mg (of 25 mg) Tablet SR 24 HR Oral daily, Pravastatin Sodium 1 Tablet (of 20 mg) Oral at bedtime, Vitamin D3 1 Tablet (of 3000 mg) Oral daily, Xifaxan 1 Tablet (of 550 mg) Oral b.i.d. Allergies: No Known Allergies. Social History: Mr. Martinez is . Mr. Martinez has never smoked. He has no history of drinking. Family History: Mr. Martinez's mother at age 74: stroke. Mr. Martinez's father at age 67: heart disease. Mr. Martinez has 1 sister who is : breast cancer. Review Of Symptoms: Constitutional - Appetite is fair and weight is stable. No fever, night sweats, or hot flashes. Energy level is poor, ENMT - Positive for sinus congestion/drainage. No mouth sores. No sore throat or difficulty swallowing, Hematologic/Lymphatic - Positive for easy bruising, bleeding and frequent nose bleeds, Respiratory - Positive for shortness of breath. No cough. No pleuritic pain or hemoptysis, Cardiovascular - No angina pain. Occasional palpitations, Gastrointestinal - Occasional nausea, no vomiting. No heartburn or acid reflux. No diarrhea. Positive for constipation. No blood in the stool or black stools, Genitourinary (M) - No dysuria or hematuria. Positive for urinary frequency. No urgency or incontinence, Musculoskeletal - Positive for joint pain, Neurologic - No headache. Positive for dizziness. No numbness or tingling. No other focal neurologic symptoms, Psychiatric - No anxiety or depression. Positive for insomnia. Vital Signs: Performed on Mar 04, 2020 14:59: 0, 33.36 (HIGH), 2.33 sq.m, 72.00 in, 97 %, 66 /min, 20 /min, 154/84 mm(hg) (HIGH), 98.2 F (LOW), and 246.0 lbs (HIGH). Performance Status: 1 - No physically strenuous activity, but ambulatory and able to carry out light or sedentary work (e.g. office work, light house work). (ECOG) Physical Examination: ENMT - No mouth sores, no thrush, no jaundice, Respiratory - Lungs are clear to auscultation, Cardiovascular - Irregular rhythm/rate, Abdomen - Soft, bowel sounds present, Extremities - 2+ edema bilaterally. Lab/Imaging: Most recent lab results are not available for this patient. Impression: Isolated thrombocytopenia, etiology unclear but appears multifactorial could be due to medicine like Keppra, as per patient he was started on Keppra last year and since then his thrombocytopenia is progressive, other possibility could be splenic sequestration as patient has advanced stage cirrhosis but CT scan of abdomen done in October 2019 showed spleen was normal size other possibility could be low-grade ITP or considering his age underlying myelodysplasia cannot be ruled out. History of stable compensated GARCIA related liver cirrhosis, viral hepatitis and autoimmune liver disorder ruled out History of iron storage disease, hemochromatosis ruled out, treated with regular phlebotomies at [facility] in the past History of duodenal ulcer diagnosed in January 2019 History of colon polyp status post removal in January 2019 History of atrial fibrillation, on Eliquis On Keppra for questionable history of seizure History of osteoarthritis, history of hypertension Plan: Discussed with patient regarding his labs white blood count 5.3 hemoglobin 13.9 hematocrit 41.4 platelets 34,000 with a normal differential Clinically, patient is doing reasonably well with no signs symptom suggestive of gross bleeding but patient is a high risk as he is on Eliquis for atrial fibrillation and history of duodenal ulcer and nonerosive gastropathy and with cirrhosis now risk of esophageal varices although not mentioned in EGD done in January 2019. Etiology of his isolated, moderate thrombocytopenia is unclear at this point could be multifactorial, with hepatic cirrhosis, there is a possibility he may have splenic sequestration although CT scan of abdomen done in October 2019 showed spleen size was normal, we will review his CT scan with radiologist other possibility could be medication induced like Keppra and would recommend keeping Keppra level on the low side of therapeutic range as patient not having any more seizures and if no improvement, we may consider trial of high-dose steroids to rule out underlying low-grade ITP but less likely, considering his age underlying myelodysplasia cannot be ruled out. If there is a progressive thrombocytopenia, we will consider trial of high-dose steroids assuming low-grade ITP if no improvement consider holding Keppra or Lasix as they are known to cause thrombocytopenia if no improvement then consider bone marrow evaluation. We will also review his peripheral blood smear and discussed with pathologist and patient is on oral iron his hemoglobin is normal range and he has history of iron overload condition so we will discontinue his oral iron and monitor his blood count and patient return to clinic in 1 month with CBC.Patient was advised to avoid trauma or in case there is any evidence of gross bleeding he need to go to hospital immediately. Signed By: Fanta Shukla M.D. <<Signature on File>>
== END 2020-03-04 12:55 | disposition home or self-care (01) ==
LOC: ONCMED 13:01
PROVIDERS: PCP Family Medicine; Visit Provider Internal Medicine Hematology & Oncology
DX: D69.6 Thrombocytopenia, unspecified (principal); K74.60 Unspecified cirrhosis of liver; K75.81 Nonalcoholic steatohepatitis (NASH); I48.91 Unspecified atrial fibrillation; M19.90 Unspecified osteoarthritis, unspecified site; I10 Essential (primary) hypertension; Z79.01 Long term (current) use of anticoagulants; Z79.899 Other long term (current) drug therapy; Z86.39 Personal history of other endocrine, nutritional and metabolic disease
CPT/HCPCS: 80500; 85025; 99203

== ENCOUNTER 2020-03-21 09:48 | Emergency (ER) | payer OTHER, MEDICARE, SELFPAY ==
[2020-03-21 10:26] VITALS: BP 134/79; PULSE 73; RESP 16; TEMP 36.7; O2SAT 97; BMI 33.5
--- NOTE | 2020-03-21 10:35 | XRR_ITS ---
PROCEDURE INFORMATION: Exam: XR Left Wrist Exam date and time: 03/21/2020 10:50 AM Age: 74 years old Clinical indication: Pain; Wrist; Left; Additional info: L wrist pain TECHNIQUE: Imaging protocol: XR Left wrist. Views: 3 or more views. COMPARISON: No relevant prior studies available. FINDINGS: Bones/joints: Mild DJD is present with small osteophyte formation on the distal radius and carpal bones. There is mild narrowing of the radiocarpal joint. Mild chondrocalcinosis is seen in the ulnar carpal joint. No fracture or other acute abnormalities are seen. There is no bony destruction. Soft tissues: Normal. XR/XR wrist LT min 3V* [id number] IMPRESSION: Mild DJD. No acute abnormality.
[2020-03-21 10:45] VITALS: BP 112/89; PULSE 76; PULSE 77; O2SAT 98
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
[2020-03-21 12:09] VITALS: BP 134/85; PULSE 79; RESP 16; O2SAT 96
== END 2020-03-21 12:10 | disposition home or self-care (01) ==
PROVIDERS: Emergency Provider Family Medicine; PCP Family Medicine
DX: S63.501A Unspecified sprain of right wrist, initial encounter (principal); S66.911A Strain of unspecified muscle, fascia and tendon at wrist and hand level, right hand, initial encounter; Z79.01 Long term (current) use of anticoagulants; I48.91 Unspecified atrial fibrillation; I10 Essential (primary) hypertension; E78.5 Hyperlipidemia, unspecified; Z86.73 Personal history of transient ischemic attack (TIA), and cerebral infarction without residual deficits; W01.0XXA Fall on same level from slipping, tripping and stumbling without subsequent striking against object, initial encounter
CPT/HCPCS: 12345; 73110; 99281; 99282

== ENCOUNTER 2020-04-06 13:11 | Outpatient (CLI) | payer OTHER, MEDICARE, SELFPAY ==
[2020-04-06 13:51] LABS: Basophils # 0.1 10^3/uL (0.0-0.1); Basophils % 1.2 %; Eosinophils # 0.2 10^3/uL (0.0-0.8); Hemoglobin 14.5 g/dL (11.7-16.6); Lymphocytes # 2.5 10^3/uL (0.8-4.8); Lymphocytes % 42.5 %; Mean Corpuscular HGB Conc 33.7 g/dL (30.0-36.0); Mean Corpuscular Hemoglobin 36.7 pg (28.0-34.0); Mean Corpuscular Volume 108.9 fL (80-94); Mean Platelet Volume 10.5 fL (7.4-10.4); Monocytes # 0.6 10^3/uL (0.2-0.9); Monocytes % 10.6 %; Neutrophils # 2.52 10^3/uL (1.8-7.7); Neutrophils % 42.4 %; Nucleated Red Blood Cells % 0 %; Platelet Count 97 10^3/cmm (130-400); Red Blood Count 3.95 10^6/uL (4.1-5.3)
[2020-04-06 14:04] LABS: Ferritin 930 ng/mL (30-400); Iron 168 ug/dL (59-158)
[2020-04-06 14:11] LABS: Percent Saturation 90.8 % (20-50); Total Iron Binding Capacity 185 mcg/dl; Unsaturated Iron Binding < 17 ug/dL (112-347)
--- NOTE | 2020-04-06 16:03 | ONC FU_ITS ---
Dr. Shukla follow up note Patient: Blayne Martinez Unit #: [id number]: [id number] Dicatated By: Fanta Shukla M.D.Date of Visit:Apr 06, 2020 Onc Med Follow-up/Prog Note History of Present Illness: Mr. Blayne Martinez, is a 74-year-old gentleman with a history of iron overload but hemochromatosis was ruled out. And was treated with regular phlebotomies at [facility] [place] due to elevated transaminases. 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 As per patient he was admitted to hospital in December 2018 with episode of upper GI bleeding requiring 3 units of blood transfusion and underwent EGD on December 22, 2018 which showed 2 cm duodenal ulcer in the posterior bulb with an adherent clot. He was also found to have known erosive antral gastropathy. Follow-up EGD done on January 29, 2019 showed complete healing of duodenal ulcer but continued to have non-erosive antral gastropathy. Patient also had colonoscopy done on January 29, 2019 which revealed 5 mm sessile descending colon tubular adenoma. And he was recommended follow-up colonoscopy in 5 years, in 2023. Patient underwent FibroScan on March 08, 2019 which showed CAP score of 297, which was indicative of moderate to severe steatosis. The median elastography measurement was 22.3K PA, which is indicating of advanced fibrosis with underlying liver cirrhosis, patient has been followed by county historian in [place]. In October 2019 patient went to [facility] ER with headaches and MRI scan of the head was done which was unremarkable for intracranial bleed His lab work done on May 10, 2018 showed white blood count 5.5 hemoglobin 15.8 hematocrit 47.4 platelets 128,000 and follow-up labs done on October 03, 2018 showed platelet count 95,000 with a normal white blood count and hemoglobin on October 17, 2018 is platelet count was 104,000 on November 08, 2019, count was 98,000 and on February 06, 2020 platelet count dropped to 76,000 with normal hemoglobin. Patient denies any evidence of nosebleed or gum bleed or hematuria or recent episode of melena or hematochezia but patient is on Eliquis for atrial fibrillation and again as mentioned above history of duodenal ulcer but follow-up EGD done on January 2019 showed healing of duodenal ulcer. Patient has mild thrombocytopenia in 2017 and 19 now progressive but still with mild to moderate isolated thrombocytopenia. As per patient and his he was started on Keppra in October 2018 with questionable seizure but patient said he never had any seizure in the recent past. Patient had CT scan of abdomen pelvis done on October 27, 2019 which showed subtle nodularity of hepatic contour, suggestive of cirrhosis, spleen unremarkable no central lymphadenopathy Patient denies any specific complaints today, denies any melena hematochezia, denies any hemoptysis or hematemesis, denies any nosebleed or gum bleed, denies any petechiae but old healing ecchymosis involving upper extremities. Denies any night sweats, denies any peripheral lymphadenopathy, denies any weight loss. Came for follow-up, denies any specific complaints, no melena or hematochezia, no nosebleed or gum bleed, no hemoptysis or hematemesis, no hematuria, no petechia or ecchymosis. Medications: Albuterol Sulfate Aerosol Powder, Breath Activated Inhalation, Eliquis 0.5 Tablet (of 5 mg) Oral b.i.d., Folic Acid 1 Tablet (of 1 mg) Oral daily, Furosemide 1 Tablet (of 40 mg) Oral daily, Klor-Con 10 1 Tablet (of 10 meq) Tablet, controlled release Oral daily, Lactulose 30 g (of 10 g) Pack Oral t.i.d., levETIRAcetam 1 Tablet (of 750 mg) Oral b.i.d., Metoprolol Succinate ER 12.5 mg (of 25 mg) Tablet SR 24 HR Oral daily, Pravastatin Sodium 1 Tablet (of 20 mg) Oral at bedtime, Vitamin D3 1 Tablet (of 3000 mg) Oral daily, Xifaxan 1 Tablet (of 550 mg) Oral b.i.d. Allergies: No Known Allergies. Review of Systems: Review of Systems is not available for this patient. Vital Signs: Performed on Apr 06, 2020 15:29 Height - 72.00 in Weight - 243.6 lbs (LOW) BSA - 2.32 sq.m BMI - 33.04 (HIGH) Temperature - 98.4 F Pulse - 71 /min Respiration - 16 /min BP - 152/86 mm(hg) (HIGH) O2 Sat - 97 % Pain - 0 Performance Status: 1 - No physically strenuous activity, but ambulatory and able to carry out light or sedentary work (e.g. office work, light house work). (ECOG) Physical Examination: ENMT - No mouth sores, no thrush, no jaundice, Respiratory - Lungs are clear to auscultation, Cardiovascular - Regular rate and rhythm of heart, Abdomen - Soft, bowel sounds present, Extremities - 1+ edema. Lab/Imaging: Most recent lab results are not available for this patient. Impression: Isolated thrombocytopenia, etiology unclear but appears multifactorial could be due to medicine like Keppra, as per patient he was started on Keppra last year and since then his thrombocytopenia is progressive, other possibility could be splenic sequestration as patient has advanced stage cirrhosis but CT scan of abdomen done in October 2019 showed spleen was normal size other possibility could be low-grade ITP or considering his age underlying myelodysplasia cannot be ruled out. History of stable compensated GARCIA related liver cirrhosis, viral hepatitis and autoimmune liver disorder ruled out History of iron storage disease, hemochromatosis ruled out, treated with regular phlebotomies at [facility] [place] in the past History of duodenal ulcer diagnosed in January 2019 History of colon polyp status post removal in January 2019 History of atrial fibrillation, on Eliquis On Keppra for questionable history of seizure History of osteoarthritis, history of hypertension Plan: Discussed with patient regarding his labs white blood count 6 hemoglobin 14.5 g hematocrit 43 platelets 97,000 compared to 84,000 on March 04, 2020, iron studies shows ferritin 930, iron saturation 90.8%, iron 168 Clinically, patient is doing well with no new signs symptom, no evidence of gross bleeding. His follow-up CBC shows hemoglobin in normal range, white blood count in normal range but persistent mild/moderate, now improving thrombocytopenia. At this point we will continue to monitor his platelet count as long as he is improving, return to clinic in 1 month with CBC if it shows persistent thrombocytopenia, will get manual platelet count to rule out platelet clumping. As far as, elevated ferritin/iron store is concerned, we will repeat HFE gene mutation testing and also repeat ferritin on return to clinic in 1 month and if it confirm hemochromatosis then will consider phlebotomies on a daily basis to keep ferritin less than 100 on the other hand if HFE gene mutation test come back negative but ferritin continues to go up, will consider phlebotomy to keep ferritin below 200. Signed By: Fanta Shukla M.D. <<Signature on File>>
== END 2020-04-06 13:12 | disposition home or self-care (01) ==
LOC: ONCMED 13:16
PROVIDERS: PCP Family Medicine; Visit Provider Internal Medicine Hematology & Oncology
DX: D69.6 Thrombocytopenia, unspecified (principal); R79.89 Other specified abnormal findings of blood chemistry; K75.81 Nonalcoholic steatohepatitis (NASH); I48.91 Unspecified atrial fibrillation; Z79.01 Long term (current) use of anticoagulants; M19.90 Unspecified osteoarthritis, unspecified site; I10 Essential (primary) hypertension; Z86.010 Personal history of colon polyps; Z79.899 Other long term (current) drug therapy
CPT/HCPCS: 36415; 81256; 82728; 83540; 83550; 85025; G0463

== ENCOUNTER 2020-05-14 07:48 | Outpatient (CLI) | payer OTHER, SELFPAY ==
[2020-05-14 08:30] LABS: Basophils # 0.1 10^3/uL (0.0-0.1); Basophils % 1.4 %; Eosinophils # 0.1 10^3/uL (0.0-0.8); Eosinophils % 2.3 %; Hematocrit 44.5 % (42.0-52.0); Hemoglobin 15.2 g/dL (11.7-16.6); Lymphocytes % 36.8 %; Mean Corpuscular HGB Conc 34.2 g/dL (30.0-36.0); Mean Corpuscular Hemoglobin 36.3 pg (28.0-34.0); Mean Corpuscular Volume 106.2 fL (80-94); Monocytes # 0.6 10^3/uL (0.2-0.9); Monocytes % 10.5 %; Neutrophils # 2.69 10^3/uL (1.8-7.7); Neutrophils % 48.6 %; Nucleated Red Blood Cells % 0 %; Platelet Count 98 10^3/cmm (130-400); Red Blood Count 4.19 10^6/uL (4.1-5.3); White Blood Count 5.5 10^3/uL (4.0-10.0)
[2020-05-14 09:04] LABS: Ferritin 1262 ng/mL (30-400)
--- NOTE | 2020-05-14 13:19 | ONC FU_ITS ---
Dr. Shukla follow up note Patient: Blayne Martinez Unit #: [id number]: 1945 Dicatated By: Fanta Shukla M.D.Date of Visit:May 14, 2020 Onc Med Follow-up/Prog Note History of Present Illness: Mr. Blayne Martinez, is a 74-year-old gentleman with a history of iron overload but hemochromatosis was ruled out. And was treated with regular phlebotomies at [facility] due to elevated transaminases. 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 As per patient he was admitted to hospital in December 2018 with episode of upper GI bleeding requiring 3 units of blood transfusion and underwent EGD on December 22, 2018 which showed 2 cm duodenal ulcer in the posterior bulb with an adherent clot. He was also found to have known erosive antral gastropathy. Follow-up EGD done on January 29, 2019 showed complete healing of duodenal ulcer but continued to have non-erosive antral gastropathy. Patient also had colonoscopy done on January 29, 2019 which revealed 5 mm sessile descending colon tubular adenoma. And he was recommended follow-up colonoscopy in 5 years, in 2023. Patient underwent FibroScan on March 08, 2019 which showed CAP score of 297, which was indicative of moderate to severe steatosis. The median elastography measurement was 22.3K PA, which is indicating of advanced fibrosis with underlying liver cirrhosis, patient has been followed by [facility] in [place]. In October 2019 patient went to [facility] ER with headaches and MRI scan of the head was done which was unremarkable for intracranial bleed His lab work done on May 10, 2018 showed white blood count 5.5 hemoglobin 15.8 hematocrit 47.4 platelets 128,000 and follow-up labs done on October 03, 2018 showed platelet count 95,000 with a normal white blood count and hemoglobin on October 17, 2018 is platelet count was 104,000 on November 08, 2019, count was 98,000 and on February 06, 2020 platelet count dropped to 76,000 with normal hemoglobin. Patient denies any evidence of nosebleed or gum bleed or hematuria or recent episode of melena or hematochezia but patient is on Eliquis for atrial fibrillation and again as mentioned above history of duodenal ulcer but follow-up EGD done on January 2019 showed healing of duodenal ulcer. Patient has mild thrombocytopenia in 2017 and 19 now progressive but still with mild to moderate isolated thrombocytopenia. As per patient and his he was started on Keppra in October 2018 with questionable seizure but patient said he never had any seizure in the recent past. Patient had CT scan of abdomen pelvis done on October 27, 2019 which showed subtle nodularity of hepatic contour, suggestive of cirrhosis, spleen unremarkable no central lymphadenopathy Patient denies any specific complaints today, denies any melena hematochezia, denies any hemoptysis or hematemesis, denies any nosebleed or gum bleed, denies any petechiae but old healing ecchymosis involving upper extremities. Denies any night sweats, denies any peripheral lymphadenopathy, denies any weight loss. Came for follow-up, denies any specific complaints, no fever chills, no nausea or vomiting, no diarrhea or constipation, no melena or hematochezia, no hemoptysis or hematemesis, no nosebleed, no petechia or ecchymosis. Medications: Albuterol Sulfate Aerosol Powder, Breath Activated Inhalation, Eliquis 0.5 Tablet (of 5 mg) Oral b.i.d., Folic Acid 1 Tablet (of 1 mg) Oral daily, Furosemide 1 Tablet (of 40 mg) Oral daily, Klor-Con 10 1 Tablet (of 10 meq) Tablet, controlled release Oral daily, Lactulose 30 g (of 10 g) Pack Oral t.i.d., levETIRAcetam 1 Tablet (of 750 mg) Oral b.i.d., Metoprolol Succinate ER 12.5 mg (of 25 mg) Tablet SR 24 HR Oral daily, Pravastatin Sodium 1 Tablet (of 20 mg) Oral at bedtime, Vitamin D3 1 Tablet (of 3000 mg) Oral daily, Xifaxan 1 Tablet (of 550 mg) Oral b.i.d. Allergies: No Known Allergies. Review of Systems: Constitutional - Appetite is fair and weight is stable. No fever, night sweats, or hot flashes. Energy level is poor, ENMT - Positive for sinus congestion/drainage. No mouth sores. No sore throat or difficulty swallowing, Hematologic/Lymphatic - Positive for easy bruising, bleeding and frequent nose bleeds, Respiratory - Positive for shortness of breath. No cough. No pleuritic pain or hemoptysis, Cardiovascular - No angina pain. Occasional palpitations, Gastrointestinal - Occasional nausea, no vomiting. No heartburn or acid reflux. No diarrhea. Positive for constipation. No blood in the stool or black stools, Genitourinary (M) - No dysuria or hematuria. Positive for urinary frequency. No urgency or incontinence, Musculoskeletal - Positive for joint pain, Neurologic - No headache. Positive for dizziness. No numbness or tingling. No other focal neurologic symptoms, Psychiatric - No anxiety or depression. Positive for insomnia. Vital Signs: Performed on May 14, 2020 09:48 Height - 72.00 in Weight - 235.2 lbs (LOW) BSA - 2.28 sq.m BMI - 31.90 (HIGH) Temperature - 99.5 F (HIGH) Pulse - 80 /min Respiration - 24 /min BP - 136/86 mm(hg) O2 Sat - 96 % Pain - 0 Performance Status: 1 - No physically strenuous activity, but ambulatory and able to carry out light or sedentary work (e.g. office work, light house work). (ECOG) Physical Examination: ENMT - No mouth sores, no thrush, no jaundice, Respiratory - Lungs are clear to auscultation, Cardiovascular - Regular rate and rhythm of heart, Abdomen - Soft, bowel sounds present, Extremities - No visible edema. Lab/Imaging: Test performed on Apr 06, 2020 13:27 Ferritin 930 ng/mL Iron 168 mcg/dL Iron Binding Capacity (TIBC) 185 mcg/dl % Iron Saturation 90.8 % UIBC < 17 mcg/dL WBC 6.0 10 3/uL RBC 3.95 10 6/uL HGB 14.5 g/dL HCT 43.0 % MCV 108.9 fL MCH 36.7 pg MCHC 33.7 g/dL RDW 13.0 % Platelet Count 97 10 3/cmm MPV 10.5 fL Neutrophils 2.52 10 3/uL Lymphocytes 2.5 10 3/uL Monocytes 0.6 10 3/uL Eosinophils 0.2 10 3/uL Basophils 0.1 10 3/uL Neutrophil % 42.4 % Lymphocyte % 42.5 % Monocyte % 10.6 % Eosinophil % 3.0 % Basophils % 1.2 % NRBC % 0 % Impression: Isolated thrombocytopenia, etiology unclear but appears multifactorial could be due to medicine like Keppra, as per patient he was started on Keppra last year and since then his thrombocytopenia is progressive, other possibility could be splenic sequestration as patient has advanced stage cirrhosis but CT scan of abdomen done in October 2019 showed spleen was normal size other possibility could be low-grade ITP or considering his age underlying myelodysplasia cannot be ruled out. History of stable compensated GARCIA related liver cirrhosis, viral hepatitis and autoimmune liver disorder ruled out History of iron storage disease, hemochromatosis ruled out, treated with regular phlebotomies at [facility] in the past Repeat DNA testing for hereditary hemochromatosis done on April 06, 2020 came back negative for C282Y and H63D pathogenic variants in the HFE gene. History of duodenal ulcer diagnosed in January 2019 History of colon polyp status post removal in January 2019 History of atrial fibrillation, on Eliquis On Keppra for questionable history of seizure History of osteoarthritis, history of hypertension Plan: Discussed with patient regarding his labs white blood count 5.5 hemoglobin 15.2 hematocrit 44.5 platelets 98,000 ferritin 1262 compared to 930 on April 06, 2020, iron saturation 90.8, iron 168 DNA testing for hereditary hemochromatosis was negative for C282Y and H63D Clinically, patient is doing reasonably well with no new signs symptoms his repeat DNA testing for hydrocal hemochromatosis came back negative, with which hemochromatosis causing elevated ferritin was ruled out, his repeat lab work-up showed progressive ferritin level and iron level. At this point we will start him on phlebotomies with a 250 cc every 2 weeks if tolerated will increase to 500 cc. And repeat his CBC and ferritin in 1 month. We will also obtain information from [facility] in [place] regarding his liver biopsy which was done in July 2019 regarding estimated iron stores in the liver tissue. And if it confirms, then will continue phlebotomies as needed and keep ferritin less than 100. Mild thrombocytopenia etiology unclear could be multifactorial but platelet count is stable, Will continue to monitor Signed By: Fanta Shukla M.D. <<Signature on File>>
== END 2020-05-14 07:49 | disposition home or self-care (01) ==
LOC: ONCMED 07:50
PROVIDERS: PCP Family Medicine; Visit Provider Internal Medicine Hematology & Oncology
DX: D69.6 Thrombocytopenia, unspecified (principal); K74.60 Unspecified cirrhosis of liver; Z87.11 Personal history of peptic ulcer disease; Z86.010 Personal history of colon polyps; Z79.01 Long term (current) use of anticoagulants; Z79.899 Other long term (current) drug therapy
CPT/HCPCS: 36415; 82728; 85025; 99195; 99214

== ENCOUNTER 2020-05-28 06:05 | Outpatient (CLI) | payer OTHER, SELFPAY ==
[2020-05-28 13:02] LABS: Basophils # 0.1 10^3/uL (0.0-0.1); Basophils % 1.5 %; Eosinophils # 0.1 10^3/uL (0.0-0.8); Eosinophils % 1.8 %; Hematocrit 43.4 % (42.0-52.0); Hemoglobin 14.8 g/dL (11.7-16.6); Lymphocytes # 2.6 10^3/uL (0.8-4.8); Lymphocytes % 42.8 %; Mean Corpuscular HGB Conc 34.1 g/dL (30.0-36.0); Mean Corpuscular Hemoglobin 36.7 pg (28.0-34.0); Mean Corpuscular Volume 107.7 fL (80-94); Mean Platelet Volume 10.3 fL (7.4-10.4); Monocytes # 0.7 10^3/uL (0.2-0.9); Monocytes % 10.9 %; Neutrophils # 2.65 10^3/uL (1.8-7.7); Neutrophils % 42.8 %; Nucleated Red Blood Cells % 0 %; Platelet Count 107 10^3/cmm (130-400); Red Blood Count 4.03 10^6/uL (4.1-5.3); Red Cell Distribution Width 13.2 % (12.1-15.1); White Blood Count 6.2 10^3/uL (4.0-10.0)
[2020-05-28 13:15] LABS: Transferrin 154 mg/dL (200-360)
[2020-05-28 13:39] LABS: Ferritin 1187 ng/mL (30-400)
== END 2020-05-28 06:06 | disposition home or self-care (01) ==
PROVIDERS: PCP Family Medicine; Visit Provider Internal Medicine Medical Oncology
DX: D69.6 Thrombocytopenia, unspecified (principal)
CPT/HCPCS: 82728; 84466; 85025; 99195

== ENCOUNTER 2020-06-17 09:10 | Outpatient (CLI) | payer OTHER, SELFPAY ==
[2020-06-17 10:06] LABS: Basophils # 0.1 10^3/uL (0.0-0.1); Basophils % 1.5 %; Eosinophils # 0.1 10^3/uL (0.0-0.8); Eosinophils % 2.1 %; Hematocrit 42.2 % (42.0-52.0); Hemoglobin 14.1 g/dL (11.7-16.6); Lymphocytes # 2.2 10^3/uL (0.8-4.8); Lymphocytes % 35.8 %; Mean Corpuscular HGB Conc 33.4 g/dL (30.0-36.0); Mean Corpuscular Hemoglobin 36.3 pg (28.0-34.0); Mean Corpuscular Volume 108.8 fL (80-94); Mean Platelet Volume 10.4 fL (7.4-10.4); Monocytes # 0.7 10^3/uL (0.2-0.9); Neutrophils # 2.92 10^3/uL (1.8-7.7); Neutrophils % 48.3 %; Nucleated Red Blood Cells % 0 %; Platelet Count 116 10^3/cmm (130-400); Red Blood Count 3.88 10^6/uL (4.1-5.3); Red Cell Distribution Width 13.7 % (12.1-15.1); White Blood Count 6.1 10^3/uL (4.0-10.0)
[2020-06-17 10:43] LABS: Slide Review Slide Review Perform
[2020-06-17 12:43] LABS: Ferritin 806 ng/mL (30-400); Transferrin 156 mg/dL (200-360)
== END 2020-06-17 09:11 | disposition home or self-care (01) ==
LOC: ONCMED 09:12
PROVIDERS: PCP Family Medicine; Visit Provider Internal Medicine Hematology & Oncology
DX: E83.110 Hereditary hemochromatosis (principal); I10 Essential (primary) hypertension; K76.6 Portal hypertension; K74.69 Other cirrhosis of liver
CPT/HCPCS: 82728; 84466; 85025; 99195

== ENCOUNTER 2020-06-18 05:55 | Outpatient (CLI) | payer OTHER, MEDICARE, SELFPAY ==
--- NOTE | 2020-06-18 16:17 | ONC FU_ITS ---
Dr. Shukla follow up note Patient: Blayne Martinez Unit #: [id number]: 1945 Dicatated By: Fanta Shukla M.D.Date of Visit:Jun 18, 2020 Onc Med Follow-up/Prog Note History of Present Illness: Mr. Blayne Martinez, is a 74-year-old gentleman with a history of iron overload but hemochromatosis was ruled out. And was [place] [facility] [place] to elevated transaminases. 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 As per patient he was admitted to hospital in December 2018 with episode of upper GI bleeding requiring 3 units of blood transfusion and underwent EGD on December 22, 2018 which showed 2 cm duodenal ulcer in the posterior bulb with an adherent clot. He was also found to have known erosive antral gastropathy. Follow-up EGD done on January 29, 2019 showed complete healing of duodenal ulcer but continued to have non-erosive antral gastropathy. Patient also had colonoscopy done on January 29, 2019 which revealed 5 mm sessile descending colon tubular adenoma. And he was recommended follow-up colonoscopy in 5 years, in 2023. Patient underwent FibroScan on March 08, 2019 which showed CAP score of 297, which was indicative of moderate to severe steatosis. The median elastography measurement was 22.3K PA, which is indicating of advanced fibrosis with underlying liver cirrhosis, patient has been followed by [facility] in [place]. In October 2019 patient went to [facility] with headaches and MRI scan of the head was done which was unremarkable for intracranial bleed His lab work done on May 10, 2018 showed white blood count 5.5 hemoglobin 15.8 hematocrit 47.4 platelets 128,000 and follow-up labs done on October 03, 2018 showed platelet count 95,000 with a normal white blood count and hemoglobin on October 17, 2018 is platelet count was 104,000 on November 08, 2019, count was 98,000 and on February 06, 2020 platelet count dropped to 76,000 with normal hemoglobin. Patient denies any evidence of nosebleed or gum bleed or hematuria or recent episode of melena or hematochezia but patient is on Eliquis for atrial fibrillation and again as mentioned above history of duodenal ulcer but follow-up EGD done on January 2019 showed healing of duodenal ulcer. Patient has mild thrombocytopenia in 2017 and 19 now progressive but still with mild to moderate isolated thrombocytopenia. As per patient and his he was started on Keppra in October 2018 with questionable seizure but patient said he never had any seizure in the recent past. Patient had CT scan of abdomen pelvis done on October 27, 2019 which showed subtle nodularity of hepatic contour, suggestive of cirrhosis, spleen unremarkable no central lymphadenopathy Patient denies any specific complaints today, denies any melena hematochezia, denies any hemoptysis or hematemesis, denies any nosebleed or gum bleed, denies any petechiae but old healing ecchymosis involving upper extremities. Denies any night sweats, denies any peripheral lymphadenopathy, denies any weight loss. Evaluated via telemedicine, denies any specific complaints, no fever chills, no nausea or vomiting, no diarrhea constipation, tolerating phlebotomies well, in fact feeling better, no melena or hematochezia, no hematuria Medications: Albuterol Sulfate Aerosol Powder, Breath Activated Inhalation, Eliquis 0.5 Tablet (of 5 mg) Oral b.i.d., Folic Acid 1 Tablet (of 1 mg) Oral daily, Furosemide 1 Tablet (of 40 mg) Oral daily, Klor-Con 10 1 Tablet (of 10 meq) Tablet, controlled release Oral daily, Lactulose 30 g (of 10 g) Pack Oral t.i.d., levETIRAcetam 1 Tablet (of 750 mg) Oral b.i.d., Metoprolol Succinate ER 12.5 mg (of 25 mg) Tablet SR 24 HR Oral daily, Pravastatin Sodium 1 Tablet (of 20 mg) Oral at bedtime, Vitamin D3 1 Tablet (of 3000 mg) Oral daily, Xifaxan 1 Tablet (of 550 mg) Oral b.i.d. Allergies: No Known Allergies. Review of Systems: Review of Systems is not available for this patient. Vital Signs: Vitals are not available for this patient. Performance Status: 1 - No physically strenuous activity, but ambulatory and able to carry out light or sedentary work (e.g. office work, light house work). (ECOG) Physical Examination: ENMT - Patient denies any mouth sores thrush or jaundice, Respiratory - Patient denies any shortness of breath or wheezing, Cardiovascular - Patient denies any tachycardia or palpitation, Abdomen - Patient denies any abdominal pain, Extremities - Patient denies any leg swelling. Lab/Imaging: Test performed on May 28, 2020 12:34 Ferritin 1187 ng/mL Transferrin 154 mg/dL WBC 6.2 10 3/uL RBC 4.03 10 6/uL HGB 14.8 g/dL HCT 43.4 % MCV 107.7 fL MCH 36.7 pg MCHC 34.1 g/dL RDW 13.2 % Platelet Count 107 10 3/cmm MPV 10.3 fL Neutrophils 2.65 10 3/uL Lymphocytes 2.6 10 3/uL Monocytes 0.7 10 3/uL Eosinophils 0.1 10 3/uL Basophils 0.1 10 3/uL Neutrophil % 42.8 % Lymphocyte % 42.8 % Monocyte % 10.9 % Eosinophil % 1.8 % Basophils % 1.5 % NRBC % 0 % Test performed on May 28, 2020 00:00 Manual Diff Cancelled via OM: Cancelled in Connected System Test performed on Apr 06, 2020 13:27 Iron 168 mcg/dL Iron Binding Capacity (TIBC) 185 mcg/dl % Iron Saturation 90.8 % UIBC < 17 mcg/dL Impression: Isolated thrombocytopenia, etiology unclear but appears multifactorial could be due to medicine like Keppra, as per patient he was started on Keppra last year and since then his thrombocytopenia is progressive, other possibility could be splenic sequestration as patient has advanced stage cirrhosis but CT scan of abdomen done in October 2019 showed spleen was normal size other possibility could be low-grade ITP or considering his age underlying myelodysplasia cannot be ruled out. History of stable compensated GARCIA related liver cirrhosis, viral hepatitis and autoimmune liver disorder ruled out History of iron storage disease, hemochromatosis ruled out, treated with [place]le[place]omies [place] [facility] [place] Repeat DNA testing for hereditary hemochromatosis done on April 06, 2020 came back negative for C282Y and H63D pathogenic variants in the HFE gene. History of duodenal ulcer diagnosed in January 2019 History of colon polyp status post removal in January 2019 History of atrial fibrillation, on Eliquis On Keppra for questionable history of seizure History of osteoarthritis, history of hypertension Plan: Discussed with patient regarding his labs via telemedicine, his white blood count 6.1 hemoglobin 14.1 hematocrit 42.2 platelets 116,000 compared to 98,000 May 14, 2020 and ferritin is 806 compared to 1187 on May 28, 2020 Clinically, patient doing well, tolerating phlebotomies well, his ferritin is improving, his hemoglobin is stable, his mild thrombocytopenia is also improving, will continue with phlebotomy every 2 weeks and then repeat CBC and ferritin in 1 month and then plan accordingly and the goal is to get his ferritin less than 100 and etiology of his elevated ferritin could be non-HFE hemochromatosis. Signed By: Fanta Shukla M.D. <<Signature on File>>
== END 2020-06-18 05:56 | disposition home or self-care (01) ==
LOC: ONCMED 05:56
PROVIDERS: PCP Family Medicine; Visit Provider Internal Medicine Hematology & Oncology
DX: D69.6 Thrombocytopenia, unspecified (principal); K75.81 Nonalcoholic steatohepatitis (NASH); K74.69 Other cirrhosis of liver; I48.91 Unspecified atrial fibrillation; Z79.01 Long term (current) use of anticoagulants

== ENCOUNTER 2020-07-02 06:03 | Outpatient (CLI) | payer OTHER, MEDICARE, SELFPAY ==
[2020-07-02 10:46] LABS: Basophils # 0.1 10^3/uL (0.0-0.1); Basophils % 1.5 %; Eosinophils # 0.2 10^3/uL (0.0-0.8); Eosinophils % 2.6 %; Hematocrit 40.5 % (42.0-52.0); Hemoglobin 13.6 g/dL (11.7-16.6); Lymphocytes % 48.8 %; Mean Corpuscular HGB Conc 33.6 g/dL (30.0-36.0); Mean Corpuscular Hemoglobin 37.4 pg (28.0-34.0); Mean Corpuscular Volume 111.3 fL (80-94); Mean Platelet Volume 10.8 fL (7.4-10.4); Monocytes # 0.6 10^3/uL (0.2-0.9); Monocytes % 10.1 %; Neutrophils # 2.26 10^3/uL (1.8-7.7); Neutrophils % 36.8 %; Nucleated Red Blood Cells % 0 %; Platelet Count 92 10^3/cmm (130-400); Red Blood Count 3.64 10^6/uL (4.1-5.3); Red Cell Distribution Width 13.8 % (12.1-15.1); White Blood Count 6.1 10^3/uL (4.0-10.0)
[2020-07-02 11:05] LABS: Ferritin 656 ng/mL (30-400)
== END 2020-07-02 06:04 | disposition home or self-care (01) ==
LOC: ONCMED 06:04
PROVIDERS: PCP Family Medicine; Visit Provider Internal Medicine Hematology & Oncology
DX: E83.119 Hemochromatosis, unspecified (principal)
CPT/HCPCS: 82728; 85025; 99195

== ENCOUNTER 2020-07-16 06:31 | Outpatient (CLI) | payer OTHER, MEDICARE, SELFPAY ==
[2020-07-16 11:18] LABS: Basophils # 0.1 10^3/uL (0.0-0.1); Basophils % 1.8 %; Eosinophils # 0.1 10^3/uL (0.0-0.8); Eosinophils % 2.3 %; Hematocrit 39.9 % (42.0-52.0); Hemoglobin 13.6 g/dL (11.7-16.6); Lymphocytes # 1.9 10^3/uL (0.8-4.8); Lymphocytes % 34.8 %; Mean Corpuscular HGB Conc 34.1 g/dL (30.0-36.0); Mean Corpuscular Hemoglobin 37.5 pg (28.0-34.0); Mean Corpuscular Volume 109.9 fL (80-94); Mean Platelet Volume 10.9 fL (7.4-10.4); Monocytes # 0.7 10^3/uL (0.2-0.9); Monocytes % 11.7 %; Neutrophils # 2.71 10^3/uL (1.8-7.7); Nucleated Red Blood Cells % 0 %; Platelet Count 103 10^3/cmm (130-400); Red Blood Count 3.63 10^6/uL (4.1-5.3); Red Cell Distribution Width 13.8 % (12.1-15.1); White Blood Count 5.5 10^3/uL (4.0-10.0)
[2020-07-16 11:36] LABS: Ferritin 619 ng/mL (30-400)
== END 2020-07-16 06:32 | disposition home or self-care (01) ==
LOC: ONCMED 06:32
PROVIDERS: PCP Family Medicine; Visit Provider Internal Medicine Medical Oncology
DX: E83.110 Hereditary hemochromatosis (principal); D50.9 Iron deficiency anemia, unspecified; I10 Essential (primary) hypertension
CPT/HCPCS: 36415; 82728; 85025; 99195

== ENCOUNTER 2020-08-06 05:58 | Outpatient (CLI) | payer OTHER, MEDICARE, SELFPAY ==
[2020-08-06 15:46] LABS: Basophils # 0.1 10^3/uL (0.0-0.1); Eosinophils # 0.2 10^3/uL (0.0-0.8); Eosinophils % 2.7 %; Hematocrit 36.9 % (42.0-52.0); Hemoglobin 12.5 g/dL (11.7-16.6); Lymphocytes # 2.4 10^3/uL (0.8-4.8); Lymphocytes % 32.3 %; Mean Corpuscular HGB Conc 33.9 g/dL (30.0-36.0); Mean Corpuscular Hemoglobin 36.4 pg (28.0-34.0); Mean Corpuscular Volume 107.6 fL (80-94); Mean Platelet Volume 10.9 fL (7.4-10.4); Monocytes # 0.9 10^3/uL (0.2-0.9); Monocytes % 12.7 %; Neutrophils # 3.75 10^3/uL (1.8-7.7); Nucleated Red Blood Cells % 0 %; Platelet Count 95 10^3/cmm (130-400); Red Blood Count 3.43 10^6/uL (4.1-5.3); Red Cell Distribution Width 13.9 % (12.1-15.1); White Blood Count 7.3 10^3/uL (4.0-10.0)
[2020-08-06 16:13] LABS: Ferritin 649 ng/mL (30-400)
== END 2020-08-06 05:59 | disposition home or self-care (01) ==
LOC: ONCMED 05:58
PROVIDERS: PCP Family Medicine; Visit Provider Internal Medicine Hematology & Oncology
DX: E83.119 Hemochromatosis, unspecified (principal)
CPT/HCPCS: 82728; 85025; 99195

== ENCOUNTER 2020-08-13 06:28 | Outpatient (CLI) | payer OTHER, MEDICARE, SELFPAY ==
[2020-08-13 12:56] LABS: Basophils # 0.1 10^3/uL (0.0-0.1); Basophils % 1.1 %; Eosinophils # 0.2 10^3/uL (0.0-0.8); Eosinophils % 1.9 %; Hematocrit 35.7 % (42.0-52.0); Hemoglobin 12.2 g/dL (11.7-16.6); Lymphocytes # 4.1 10^3/uL (0.8-4.8); Lymphocytes % 47.8 %; Mean Corpuscular HGB Conc 34.2 g/dL (30.0-36.0); Mean Corpuscular Volume 108.2 fL (80-94); Mean Platelet Volume 10.6 fL (7.4-10.4); Monocytes # 0.9 10^3/uL (0.2-0.9); Monocytes % 10.2 %; Neutrophils # 3.31 10^3/uL (1.8-7.7); Neutrophils % 38.9 %; Nucleated Red Blood Cells % 0 %; Platelet Count 100 10^3/cmm (130-400); Red Cell Distribution Width 14.5 % (12.1-15.1); White Blood Count 8.5 10^3/uL (4.0-10.0)
== END 2020-08-13 06:29 | disposition home or self-care (01) ==
LOC: ONCMED 06:29
PROVIDERS: PCP Family Medicine; Visit Provider Internal Medicine Hematology & Oncology
DX: E83.119 Hemochromatosis, unspecified (principal)
CPT/HCPCS: 36415; 85025

== ENCOUNTER 2020-08-16 15:46 | Inpatient (IN) | payer OTHER, MEDICARE, SELFPAY ==
[2020-08-16] VITALS (8 sets, daily range): BP systolic 128–161; BP diastolic 68–83; PULSE 83–96; RESP 15–19; TEMP 36.9–37.1; O2SAT 96–98; BMI 32.5
--- NOTE | 2020-08-16 16:07 | ECG_ITS ---
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
--- NOTE | 2020-08-16 16:07 | XRR_ITS ---
PROCEDURE INFORMATION: Exam: XR Chest Exam date and time: 08/16/2020 4:26 PM Age: 74 years old Clinical indication: Chest pain; Type not specified; Prior surgery; Surgery date: 6+ months; Surgery type: Loop recorder; Additional info: Tal TECHNIQUE: Imaging protocol: XR of the chest Views: 1 view. COMPARISON: CR XR chest 1V portable [id number] 12/31/2019 1:43 AM FINDINGS: Tubes, catheters and devices: Loop recorder is again seen over the left side of the chest. Lungs: Visualized portions of the lungs are clear. Pleural spaces: Unremarkable. No pleural effusion. No pneumothorax. Heart/Mediastinum: Heart is within normal limits of size. Vasculature: There is mild atherosclerotic change in the aortic arch. Bones/joints: Unremarkable. Other findings: Findings are not significantly changed compared with 12/31/2019. XR/XR chest 1V portable [id number] IMPRESSION: No acute infiltrates.
--- NOTE | 2020-08-16 16:44 | ED_ITS ---
Documented by User: Maricarmen Rivera MD 08/16/20 17:55 HPI - Chest Pain General: Chief Complaint: Chest Pain Stated Complaint: Chest Pressure/Low BP Time Seen by Provider: 08/16/20 16:26 Source: patient Mode of arrival: ambulatory Limitations: no limitations History of Present Illness: HPI narrative: Blayne a 74-year-old male who states that he has been having lightheadedness along with chest pain. He states that his chest pain got much worse then he felt like he was going to pass out multiple times today. He denies any fever or shortness of breath. He states it seems to be worse with exertion. Denies any vomiting. He does have a history of high iron he gets his blood drawn every other week by Dr. Shukla for it Associated symptoms: Reports syncope; Deny abdominal pain, dyspnea, fever(s), nausea or vomiting Review of Systems Const: Denies: fever(s), chills, body aches or change in appetite Eyes: Denies: blurry vision or eye discomfort ENMT: Denies: throat pain or dental pain Card: Reports: chest pain and syncope Resp: Denies: dyspnea GI: Denies: abdominal pain, nausea, vomiting or diarrhea : Denies: dysuria Musc: Denies: neck pain or back pain Skin/Breast: Denies: rash Neuro: Denies: headache(s) Psych: Denies: depression Shai/Lymph: Denies: easy bruising All/Imm: Denies: urticaria PFS ED PFSH: Medical History (Updated 08/16/20 @ 20:48 by Ryne Morgan MD) AAA (abdominal aortic aneurysm) 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 Atrial fibrillation On Eliquis BPH (benign prostatic hyperplasia) Carotid artery stenosis Diverticulosis Duodenal ulcer Gastritis Hemochromatosis Hiatal hernia History of colon polyps Follow-up colonoscopy in 2023 HTN (hypertension) Hyperlipidemia Internal hemorrhoids Liver, cirrhosis, portal Portal hypertension S/P ORIF (open reduction internal fixation) fracture RIGHT HIP Status post placement of implantable loop recorder TIA (transient ischemic attack) Surgical History History of cystoscopy History of esophagogastroduodenoscopy (EGD) History of vasectomy S/P discectomy Status post colonoscopy with polypectomy Family History Mother Stroke Brother Ycclx-[id number] deficiency Denies family history of Anesthesia complication Bleeding disorder Social History Smoking and tobacco status: never smoked Alcohol intake: never Household members: spouse Marital status: Current occupational status: retired Physical Exam Const: COMMON NORMALS: no acute distress, patient oriented x3 and healthy appearing HENMT: COMMON NORMALS: normocephalic and atraumatic HEAD & SCALP: normocephalic and atraumatic Eye: COMMON NORMALS: Equal, round and reactive pupils present and EOMs intact bilaterally PUPIL: Yes Equal, round and reactive pupils present Neck/C-Spine: COMMON NORMALS: full ROM and supple Chest: COMMONS NORMALS: normal inspection of the chest and normal palpation of entire chest wall Resp: COMMON NORMALS: normal respiratory effort, No retractions, No use of accessory muscles and clear to auscultation bilaterally AUSCULTATION: clear to auscultation bilaterally Cardio: COMMON NORMALS: regular rate and regular rhythm RATE: regular rate RHYTHM: regular rhythm HEART SOUNDS: Murmur heart sound present systolic GI: COMMON NORMALS: Normal to inspection, nondistended, normoactive bowel sounds present, Soft to palpation, non-tender and no masses PALPATION: Yes Soft to palpation Extremity: COMMON NORMALS: normal to inspection and full ROM Neuro: COMMON NORMALS: patient oriented x3, moves all extremities and no focal motor deficits Psych: COMMON NORMALS: mental status grossly normal, Normal thought process present and cooperative THOUGHT PROCESS: Normal thought process present Skin: COMMON NORMALS: no rashes or lesions noted and no wounds GENERAL SKIN EXAM: no rashes or lesions noted Course Vital Signs: Vital signs: Vital Signs Temperature 98.4 F 08/16/20 15:55 Pulse Rate 87 08/16/20 20:59 Respiratory Rate 15 08/16/20 20:59 Blood Pressure 141/71 08/16/20 20:59 Pulse Oximetry 97 08/16/20 20:59 MDM - Chest Pain MDM Narrative: Medical decision making narrative: Patient presents here with chest pain along with near syncopal events. Patient is pending CT scan of his chest and abdomen and care turned over to Dr. Valle at this time. Lab Data: Labs: Lab Results 08/16/20 08/16/20 08/16/20 Range/Units 16:45 16:45 16:45 WBC 6.7 (4.0-10.0) 10^3/ uL RBC 3.26 L (4.1-5.3) 10^6/u L Hgb 11.8 (11.7-16.6) g/dL Hct 34.9 L (42.0-52.0) % MCV 107.1 H (80-94) fL MCH 36.2 H (28.0-34.0) pg MCHC 33.8 (30.0-36.0) g/dL RDW 14.7 (12.1-15.1) % Plt Count 89 L (130-400) 10^3/c mm MPV 10.7 H (7.4-10.4) fL Neut % (Auto) 54.3 % Lymph % (Auto) 27.4 % [place] % (Auto) 14.8 % Eos % (Auto) 2.1 % Baso % (Auto) 1.0 % Neut # (Auto) 3.64 (1.8-7.7) 10^3/u L Lymph # (Auto) 1.8 (0.8-4.8) 10^3/u L [place] # (Auto) 1.0 H (0.2-0.9) 10^3/u L Eos # (Auto) 0.1 (0.0-0.8) 10^3/u L Baso # (Auto) 0.1 (0.0-0.1) 10^3/u L Nucleated RBC % (a uto) 0 % Nucleated RBCs # 0.0 /100WBC PT (12.1-14.9) SECO NDS INR (0.8-1.2) Sodium 136 (136-145) mmol/L Potassium 3.8 (3.5-5.1) mmol/L Chloride 100 (98-107) mmol/L Carbon Dioxide 28 (22-29) mmol/L Anion Gap 11.8 (5-19) BUN 15 (8-23) mg/dL Creatinine 1.4 H (0.7-1.2) mg/dL GFR Calculation Not Reportable Glucose 107 (65-115) mg/dL Calculated Osmolal ity 283 L (285-295) mOsm/k g Calcium 8.6 (8.5-10.5) mg/dL Total Bilirubin 2.6 H (0.15-1.2) mg/dL AST 105 H (0-40) U/L ALT 42 H (0-41) U/L Alkaline Phosphata se 136 H (40-130) IU/L Troponin T Baselin e 22 H (0-15) ng/L Troponin T 120 Min [place] (0-15) ng/L Delta Troponin T (0-10) ABS# Total Protein 6.6 (6.6-8.7) g/dL Albumin 2.5 L (3.5-5.2) g/dL Globulin 4.1 (1.3-4.6) g/dL Lipase (13-60) U/L 08/16/20 08/16/20 08/16/20 Range/Units 16:45 16:45 18:50 WBC (4.0-10.0) 10^3/ uL RBC (4.1-5.3) 10^6/u L Hgb (11.7-16.6) g/dL Hct (42.0-52.0) % MCV (80-94) fL MCH (28.0-34.0) pg MCHC (30.0-36.0) g/dL RDW (12.1-15.1) % Plt Count (130-400) 10^3/c mm MPV (7.4-10.4) fL Neut % (Auto) % Lymph % (Auto) % [place] % (Auto) % Eos % (Auto) % Baso % (Auto) % Neut # (Auto) (1.8-7.7) 10^3/u L Lymph # (Auto) (0.8-4.8) 10^3/u L [place] # (Auto) (0.2-0.9) 10^3/u L Eos # (Auto) (0.0-0.8) 10^3/u L Baso # (Auto) (0.0-0.1) 10^3/u L Nucleated RBC % (a uto) % Nucleated RBCs # /100WBC PT 21.40 H (12.1-14.9) SECO NDS INR 1.79 H (0.8-1.2) Sodium (136-145) mmol/L Potassium (3.5-5.1) mmol/L Chloride (98-107) mmol/L Carbon Dioxide (22-29) mmol/L Anion Gap (5-19) BUN (8-23) mg/dL Creatinine (0.7-1.2) mg/dL GFR Calculation Glucose (65-115) mg/dL Calculated Osmolal ity (285-295) mOsm/k g Calcium (8.5-10.5) mg/dL Total Bilirubin (0.15-1.2) mg/dL AST (0-40) U/L ALT (0-41) U/L Alkaline Phosphata se (40-130) IU/L Troponin T Baselin e (0-15) ng/L Troponin T 120 Min [place] 22.96 H (0-15) ng/L Delta Troponin T 0.96 (0-10) ABS# Total Protein (6.6-8.7) g/dL Albumin (3.5-5.2) g/dL Globulin (1.3-4.6) g/dL Lipase 40 (13-60) U/L EKG Data^: EKG 1: Attestation: I personally reviewed and interpreted this EKG as follows: EKG interpretation date: 08/16/20 EKG interpretation time: 15:52 Interpretation: nsr hr 99 with no sst or t wave abnormalities qrs 87 qtc 436 Discharge Plan Discharge Prescriptions: No Action levetiracetam 750 mg tablet 750 mg PO BID@, RF: 0 Eliquis 5 mg tablet 2.5 mg PO BID@, RF: 0 albuterol sulfate 90 mcg/actuation HFA aerosol inhaler 2 puff INHALATION Q6H PRN (Reason: Shortness Of Breath) RF: 0 pantoprazole 40 mg tablet,delayed release (DR/EC) 40 mg PO DAILY@08 RF: 0 pravastatin 20 mg tablet 10 mg PO DAILY@17 RF: 0 furosemide 40 mg tablet 40 mg PO BID@,14 RF: 0 folic acid 1 mg Tablet 1 mg PO DAILY@08 RF: 0 Xifaxan 550 mg Tablet 550 mg PO BID Qty: 60 RF: 0 lactulose 10 gram/15 mL solution 45 ml PO QID RF: 0 Vitamin D3 25 mcg (1,000 unit) Tablet 3,000 unit PO DAILY@08 RF: 0 potassium chloride 10 mEq tablet extended release 10 meq PO DAILY@08 RF: 0 spironolactone 25 mg tablet 25 mg PO DAILY@08 RF: 0 Referrals: Fanta Shukla MD [Primary Care Provider] - Coding Level of Care Code ED Videotape Sales Representative for Chg Fwd Exam Comprehensive Documented by User: Pool Valle DO 08/16/20 21:05 HPI - Chest Pain General: Chief Complaint: Chest Pain Stated Complaint: Chest Pressure/Low BP Time Seen by Provider: 08/16/20 16:26 PFSH ED PFSH: Medical History (Updated 08/16/20 @ 20:48 by Ryne Morgan MD) AAA (abdominal aortic aneurysm) Ginqw-4-utobgrtihhb deficiency carrier Atrial fibrillation On Eliquis BPH (benign prostatic hyperplasia) Carotid artery stenosis Diverticulosis Duodenal ulcer Gastritis Hemochromatosis Hiatal hernia History of colon polyps Follow-up colonoscopy in 2023 HTN (hypertension) Hyperlipidemia Internal hemorrhoids Liver, cirrhosis, portal Portal hypertension S/P ORIF (open reduction internal fixation) fracture RIGHT HIP Status post placement of implantable loop recorder TIA (transient ischemic attack) Surgical History History of cystoscopy History of esophagogastroduodenoscopy (EGD) History of vasectomy S/P discectomy Status post colonoscopy with polypectomy Family History Mother Stroke Brother Gmpru-[id number] deficiency Denies family history of Anesthesia complication Bleeding disorder Social History Smoking and tobacco status: never smoked Alcohol intake: never Household members: spouse Marital status: Current occupational status: retired Course Consultations: Consultation #1: Cathy Vital Signs: Vital signs: Vital Signs Temperature 98.4 F 08/16/20 15:55 Pulse Rate 87 08/16/20 20:59 Respiratory Rate 15 08/16/20 20:59 Blood Pressure 141/71 08/16/20 20:59 Pulse Oximetry 97 08/16/20 20:59 MDM - Chest Pain MDM Narrative: Medical decision making narrative: Patient checked out to me by Dr. Rivera at shift change. Chest discomfort with multiple episodes of syncope in this patient who is not had an echo, but does have a significant systolic murmur. Aorta/mediastinum appeared widened on x-ray, so CT of the chest was ordered, with follow-through to the abdomen because of elevated liver enzymes. The patient does have a history of liver disease. Nothing acute in the chest abdomen or pelvis by CT. He will be observed for chest discomfort with syncope. Lab Data: Labs: Lab Results 08/16/20 08/16/20 08/16/20 Range/Units 16:45 16:45 16:45 WBC 6.7 (4.0-10.0) 10^3/ uL RBC 3.26 L (4.1-5.3) 10^6/u L Hgb 11.8 (11.7-16.6) g/dL Hct 34.9 L (42.0-52.0) % MCV 107.1 H (80-94) fL MCH 36.2 H (28.0-34.0) pg MCHC 33.8 (30.0-36.0) g/dL RDW 14.7 (12.1-15.1) % Plt Count 89 L (130-400) 10^3/c mm MPV 10.7 H (7.4-10.4) fL Neut % (Auto) 54.3 % Lymph % (Auto) 27.4 % [place] % (Auto) 14.8 % Eos % (Auto) 2.1 % Baso % (Auto) 1.0 % Neut # (Auto) 3.64 (1.8-7.7) 10^3/u L Lymph # (Auto) 1.8 (0.8-4.8) 10^3/u L [place] # (Auto) 1.0 H (0.2-0.9) 10^3/u L Eos # (Auto) 0.1 (0.0-0.8) 10^3/u L Baso # (Auto) 0.1 (0.0-0.1) 10^3/u L Nucleated RBC % (a uto) 0 % Nucleated RBCs # 0.0 /100WBC PT (12.1-14.9) SECO NDS INR (0.8-1.2) Sodium 136 (136-145) mmol/L Potassium 3.8 (3.5-5.1) mmol/L Chloride 100 (98-107) mmol/L Carbon Dioxide 28 (22-29) mmol/L Anion Gap 11.8 (5-19) BUN 15 (8-23) mg/dL Creatinine 1.4 H (0.7-1.2) mg/dL GFR Calculation Not Reportable Glucose 107 (65-115) mg/dL Calculated Osmolal ity 283 L (285-295) mOsm/k g Calcium 8.6 (8.5-10.5) mg/dL Total Bilirubin 2.6 H (0.15-1.2) mg/dL AST 105 H (0-40) U/L ALT 42 H (0-41) U/L Alkaline Phosphata se 136 H (40-130) IU/L Troponin T Baselin e 22 H (0-15) ng/L Troponin T 120 Min [place] (0-15) ng/L Delta Troponin T (0-10) ABS# Total Protein 6.6 (6.6-8.7) g/dL Albumin 2.5 L (3.5-5.2) g/dL Globulin 4.1 (1.3-4.6) g/dL Lipase (13-60) U/L 08/16/20 08/16/20 08/16/20 Range/Units 16:45 16:45 18:50 WBC (4.0-10.0) 10^3/ uL RBC (4.1-5.3) 10^6/u L Hgb (11.7-16.6) g/dL Hct (42.0-52.0) % MCV (80-94) fL MCH (28.0-34.0) pg MCHC (30.0-36.0) g/dL RDW (12.1-15.1) % Plt Count (130-400) 10^3/c mm MPV (7.4-10.4) fL Neut % (Auto) % Lymph % (Auto) % [place] % (Auto) % Eos % (Auto) % Baso % (Auto) % Neut # (Auto) (1.8-7.7) 10^3/u L Lymph # (Auto) (0.8-4.8) 10^3/u L [place] # (Auto) (0.2-0.9) 10^3/u L Eos # (Auto) (0.0-0.8) 10^3/u L Baso # (Auto) (0.0-0.1) 10^3/u L Nucleated RBC % (a uto) % Nucleated RBCs # /100WBC PT 21.40 H (12.1-14.9) SECO NDS INR 1.79 H (0.8-1.2) Sodium (136-145) mmol/L Potassium (3.5-5.1) mmol/L Chloride (98-107) mmol/L Carbon Dioxide (22-29) mmol/L Anion Gap (5-19) BUN (8-23) mg/dL Creatinine (0.7-1.2) mg/dL GFR Calculation Glucose (65-115) mg/dL Calculated Osmolal ity (285-295) mOsm/k g Calcium (8.5-10.5) mg/dL Total Bilirubin (0.15-1.2) mg/dL AST (0-40) U/L ALT (0-41) U/L Alkaline Phosphata se (40-130) IU/L Troponin T Baselin e (0-15) ng/L Troponin T 120 Min [place] 22.96 H (0-15) ng/L Delta Troponin T 0.96 (0-10) ABS# Total Protein (6.6-8.7) g/dL Albumin (3.5-5.2) g/dL Globulin (1.3-4.6) g/dL Lipase 40 (13-60) U/L Discharge Plan Discharge Prescriptions: No Action levetiracetam 750 mg tablet 750 mg PO BID@ RF: 0 Eliquis 5 mg tablet 2.5 mg PO BID@ RF: 0 albuterol sulfate 90 mcg/actuation HFA aerosol inhaler 2 puff INHALATION Q6H PRN (Reason: Shortness Of Breath) RF: 0 pantoprazole 40 mg tablet,delayed release (DR/EC) 40 mg PO DAILY@08 RF: 0 pravastatin 20 mg tablet 10 mg PO DAILY@17 RF: 0 furosemide 40 mg tablet 40 mg PO BID@08,14 RF: 0 folic acid 1 mg Tablet 1 mg PO DAILY@08 RF: 0 Xifaxan 550 mg Tablet 550 mg PO BID Qty: 60 RF: 0 lactulose 10 gram/15 mL solution 45 ml PO QID RF: 0 Vitamin D3 25 mcg (1,000 unit) Tablet 3,000 unit PO DAILY@08 RF: 0 potassium chloride 10 mEq tablet extended release 10 meq PO DAILY@08 RF: 0 spironolactone 25 mg tablet 25 mg PO DAILY@08 RF: 0 Referrals: Fanta Shukla MD [Primary Care Provider] - Coding Level of Care Code ED Videotape Sales Representative for Chg Fwd Exam Comprehensive
[2020-08-16 17:02] LABS: Basophils # 0.1 10^3/uL (0.0-0.1); Eosinophils # 0.1 10^3/uL (0.0-0.8); Eosinophils % 2.1 %; Hematocrit 34.9 % (42.0-52.0); Hemoglobin 11.8 g/dL (11.7-16.6); Lymphocytes # 1.8 10^3/uL (0.8-4.8); Lymphocytes % 27.4 %; Mean Corpuscular HGB Conc 33.8 g/dL (30.0-36.0); Mean Corpuscular Hemoglobin 36.2 pg (28.0-34.0); Mean Corpuscular Volume 107.1 fL (80-94); Mean Platelet Volume 10.7 fL (7.4-10.4); Monocytes % 14.8 %; Neutrophils # 3.64 10^3/uL (1.8-7.7); Neutrophils % 54.3 %; Nucleated Red Blood Cells % 0 %; Platelet Count 89 10^3/cmm (130-400); Red Blood Count 3.26 10^6/uL (4.1-5.3); Red Cell Distribution Width 14.7 % (12.1-15.1); White Blood Count 6.7 10^3/uL (4.0-10.0)
[2020-08-16 17:16] LABS: Alanine Aminotransferase 42 U/L (0-41); Albumin Level 2.5 g/dL (3.5-5.2); Alkaline Phosphatase 136 IU/L (40-130); Anion Gap 11.8 (5-19); Aspartate Amino Transferase 105 U/L (0-40); Blood Urea Nitrogen 15 mg/dL (8-23); Calcium 8.6 mg/dL (8.5-10.5); Carbon Dioxide 28 mmol/L (22-29); Chloride 100 mmol/L (98-107); Globulin 4.1 g/dL (1.3-4.6); Glucose 107 mg/dL (65-115); Osmolality Calculated 283 mOsm/kg (285-295); Potassium 3.8 mmol/L (3.5-5.1); Sodium 136 mmol/L (136-145); Total Bilirubin 2.6 mg/dL (0.15-1.2); Total Protein 6.6 g/dL (6.6-8.7)
[2020-08-16 17:18] LABS: Troponin(5th) Baseline 22 ng/L (0-15)
--- NOTE | 2020-08-16 17:25 | CTR_ITS ---
PROCEDURE INFORMATION: Exam: CT Angiography Chest With Contrast Exam date and time: 08/16/2020 5:46 PM Age: 74 years old Clinical indication: Abdominal pain; Generalized; Chest pain; Type not specified; Prior surgery; Surgery date: 6+ months; Surgery type: RT hip; Additional info: Abd pain, chest pain TECHNIQUE: Imaging protocol: Computed tomographic angiography of the chest with contrast. 3D rendering (Not supervised by radiologist): MIP and/or 3D reconstructed images were created by the technologist. Radiation optimization: All CT scans at this facility use at least one of these dose optimization techniques: automated exposure control; mA and/or kV adjustment per patient size (includes targeted exams where dose is matched to clinical indication); or iterative reconstruction. Contrast material: VISI; Contrast volume: 95 ml; Contrast route: INTRAVENOUS (IV); COMPARISON: CTA Chest-Pulmonary Emb [id number] 08/08/2015 11:17 AM RADIATION DOSE METRICS: Total DLP (mGy-cm): 1857.27 FINDINGS: Limitations: Suboptimal/less than robust opacification the pulmonary arterial tree. Tubes, catheters and devices: Loop recorder is seen in the left chest wall. Pulmonary arteries: Normal. No pulmonary emboli. Aorta: There are mild atherosclerotic changes in the aortic arch and descending thoracic aorta.There is no thoracic aortic aneurysm or dissection. Lungs: Calcified granuloma in the right lower lobe. There is mild dependent atelectasis in both lungs. Pleural spaces: Unremarkable. No pneumothorax. No pleural effusion. Heart: Unremarkable. No cardiomegaly. No pericardial effusion. Lymph nodes: There are small paratracheal lymph nodes but no adenopathy. Bones/joints: Unremarkable. No acute fracture. Soft tissues: There is mild bilateral gynecomastia. IMPRESSION: No evidence of pulmonary embolism. PROCEDURE INFORMATION: Exam: CT Abdomen And Pelvis With Contrast Exam date and time: 08/16/2020 5:46 PM Age: 74 years old Clinical indication: Abdominal pain; Generalized; Chest pain; Type not specified; Prior surgery; Surgery date: 6+ months; Surgery type: RT hip; Additional info: Abd pain, chest pain TECHNIQUE: Imaging protocol: Computed tomography of the abdomen and pelvis with contrast. Radiation optimization: All CT scans at this facility use at least one of these dose optimization techniques: automated exposure control; mA and/or kV adjustment per patient size (includes targeted exams where dose is matched to clinical indication); or iterative reconstruction. Contrast material: VISI; Contrast volume: 95 ml; Contrast route: INTRAVENOUS (IV); COMPARISON: 1. CTA Chest-Pulmonary Emb [id number] 08/08/2015 11:[address] abdomen pelvis wo con [id number] 10/27/2019 5:22:[address] abdomen pelvis wo con [id number] 10/09/2015 1:31:53 PM RADIATION DOSE METRICS: Total DLP (mGy-cm): 1857.27 FINDINGS: Liver: Liver shows nodular contours suggestive of cirrhosis. There is no focal abnormality within the liver. Gallbladder and bile ducts: The gallbladder is normal. Pancreas: There is question of some minimal hypodensity in the region the head of the pancreas which could represent mild pancreatitis. Correlation with the clinical laboratory findings is suggested. Spleen: The spleen is normal. Adrenal glands: The adrenal glands are normal. Kidneys and ureters: There is a stone in a mid calyx of the left kidney. There is also a 6 mm sized nonobstructing stone in the left renal pelvis. The right kidney is normal. There is no evidence of hydronephrosis. There is no stone along the course of either ureter. Stomach and bowel: There is no evidence of colitis/diverticulitis. Appendix: A normal appendix is identified. Intraperitoneal space: There is a tiny bit of free fluid in the posterior pelvis. Vasculature: The aorta demonstrates moderate atherosclerotic calcification. There is mild infrarenal abdominal aortic aneurysm with maximum AP diameter of 3.4 cm. Not significantly changed from 10/27/2019 Lymph nodes: Unremarkable. No enlarged lymph nodes. Urinary bladder: Unremarkable as visualized. Reproductive: Unremarkable as visualized. Bones/joints: Right hip replacement is again identified not significantly changed. The lumbar spine demonstrates moderate degenerative changes at multiple levels. Soft tissues: Unremarkable. CT/CT angio chest w abd pel w con IMPRESSION: 1. Possible cirrhosis. 2. Question of mild pancreatitis. 3. Abdominal aortic aneurysm. 4. Left nephrolithiasis. Radiation Dose CTDIVOL = (mGy): DLP = 1857.27~1857.27 (mGy-cm)
[2020-08-16] MEDS: iodixanol 320 mg/mL 100mL Btl IV (18:21)
[2020-08-16 19:17] LABS: Troponin 5 2HR 22.96 ng/L (0-15); Troponin 5 2HR Delta 0.96 ABS# (0-10)
[2020-08-16 19:48] LABS: INR 1.79 (0.8-1.2)
--- NOTE | 2020-08-16 20:27 | PM.HP ---
Providers/Chief Complaint Primary Care Provider: Fanta Shukla MD Chief Complaint: Chest Pressure/Low BP History of Present Illness Blayne Martinez is a 74 year old male with a past medical history of hemochromatosis, liver cirrhosis, tonic atrial fibrillation on Eliquis anticoagulation presents to the emergency department with a complaint of recurrent dizziness, lightheadedness and chest pressure. Physical examination in the ED revealed a systolic murmur. Patient initial troponin is intermediate. There is a concern for aortic stenosis. Patient is hospitalized for ACS rule out and also for further evaluation for aortic stenosis. Review of Systems Narrative: Patient denied any palpitation, he denied any abdominal pain, no nausea or vomiting. He endorsed increased lower extremity swelling. Except as documented, all other systems reviewed and negative. Medications/Allergies Home Medications Medication Instructions Recorded Confirmed Last Taken Type albuterol sulfate 90 mcg/actuation 2 puff INHALATION Q6H PRN 06/17/19 08/16/20 Unknown History aerosol inhaler pantoprazole 40 mg tablet,delayed 40 mg PO DAILY@08 tab 06/17/19 08/16/20 08/16/20 History release levetiracetam 750 mg tablet 750 mg PO BID@08,06/18/19 08/16/20 08/16/20 08:00 History pravastatin 20 mg tablet 10 mg PO DAILY@17 tab 06/18/19 08/16/20 08/15/20 History folic acid 1 mg PO DAILY@12/31/19 08/16/20 08/16/20 History rifaximin [Xifaxan] 550 mg PO BID #60 tab 01/01/20 08/16/20 08/13/20 Rx PTS STATE OUT 2 furosemide 40 mg tablet 40 mg PO BID@,14 tab 03/20/20 08/16/20 08/16/20 14:00 History apixaban 5 mg tablet 2.5 mg PO BID@, tab 04/20/20 08/16/20 08/16/20 08:00 History cholecalciferol (vitamin D3) 3,000 unit PO DAILY@08 08/16/20 08/16/20 08/16/20 History [Vitamin D3] lactulose 45 ml PO QID 08/16/20 08/16/20 08/16/20 14:30 History potassium chloride 10 meq PO DAILY@08 0308/16/20 08/16/20 History spironolactone 25 mg PO DAILY@08 08/16/20 08/16/20 08/16/20 History Allergies Allergy/AdvReac Type Severity Reaction Status Date / Time No Known Allergies Allergy Verified 08/16/20 18:49 PFSH Acute PFSH: Medical History (Updated 08/16/20 @ 21:06 by ) AAA (abdominal aortic aneurysm) 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 Atrial fibrillation On Eliquis BPH (benign prostatic hyperplasia) Carotid artery stenosis Diverticulosis Duodenal ulcer Gastritis Hemochromatosis Hiatal hernia History of colon polyps Follow-up colonoscopy in 2023 HTN (hypertension) Hyperlipidemia Internal hemorrhoids Liver, cirrhosis, portal Portal hypertension S/P ORIF (open reduction internal fixation) fracture RIGHT HIP Status post placement of implantable loop recorder TIA (transient ischemic attack) Surgical History History of cystoscopy History of esophagogastroduodenoscopy (EGD) History of vasectomy S/P discectomy Status post colonoscopy with polypectomy Family History Mother Stroke Brother [id number] deficiency Denies family history of Anesthesia complication Bleeding disorder Social History Smoking and tobacco status: never smoked Alcohol intake: never Household members: spouse Marital status: Current occupational status: retired Vitals/I&O/Wt Last Vital Signs Temp 98.4 F 08/16/20 15:55 Pulse 91 08/16/20 19:16 Resp 19 H 08/16/20 19:16 BP 161/73 08/16/20 19:16 Pulse Ox 97 08/16/20 19:16 Weight last 48 hrs Weight 108.862 kg Physical Exam Const: COMMON NORMALS: no acute distress and patient oriented x3 NUTRITIONAL APPEARANCE: obese HENMT: COMMON NORMALS: normocephalic, atraumatic, moist oral mucous membranes and oropharynx normal Eye: COMMON NORMALS: Equal, round and reactive pupils present, conjunctivae normal and no scleral icterus Neck/C-Spine: COMMON NORMALS: no lymphadenopathy, supple and no JVD Lymph: LYMPHATIC: no lymphadenopathy noted Chest: COMMONS NORMALS: normal palpation of entire chest wall CHEST: Yes Symmetrical chest wall rise Resp: COMMON NORMALS: normal respiratory effort, No retractions, No use of accessory muscles and clear to auscultation bilaterally Cardio: COMMON NORMALS: regular rate, S1 normal heart sound present and S2 normal heart sound present RHYTHM: abnormal rhythm irregularly irregular HEART SOUNDS: Murmur heart sound present systolic GI: COMMON NORMALS: Normal to inspection, nondistended, normoactive bowel sounds present, Soft to palpation, non-tender and no bruits : COMMON NORMALS: Yes no CVA tenderness Back/Pelvis: COMMON NORMALS: no thoracic nor lumbar tenderness and thoraco-lumbar ROM normal Extremity: COMMON NORMALS: no calf tenderness GENERAL: Yes edema (Bilateral lower extremities) Psych: COMMON NORMALS: mental status grossly normal, Normal thought process present, cooperative, normal affect and speech normal Skin: COMMON NORMALS: no rashes or lesions noted and no jaundice Data : 08/16/20 16:45 08/16/20 16:45 A&P Assessment and plan (1) Chest pain: Status: Acute (2) Cardiac murmur: Status: Acute (3) Liver, cirrhosis, portal: Status: Acute (4) Hemochromatosis: Status: Acute (5) Atrial fibrillation: Status: Acute Qualifiers: Atrial fibrillation type: paroxysmal Qualified Code(s): I48.0 - Paroxysmal atrial fibrillation (6) AAA (abdominal aortic aneurysm): Status: Acute Additional A&P Information Place patient under observation. Continue to trend troponin Obtain echocardiogram. Continue Eliquis. Continue home medications for liver cirrhosis. Abdominal aortic aneurysm appears stable. Attestations Medical Necessity Statement*: Patient with high cardiac risk factors presenting with lightheadedness and chest tightness physical examination. He need to be hospitalized for ACS rule out and for further evaluation. Patient is expected to spend less than 2 midnights. Coding Level of Care Code Acute Flat Grinder Operator for [facility] Fwd Exam Comprehensive Diagnoses Chest pain R07.9 Cardiac murmur R01.1 Liver, cirrhosis, portal K74.69 Hemochromatosis E83.119 Atrial fibrillation I48.0 Atrial fibrillation type: paroxysmal AAA (abdominal aortic aneurysm) I71.4
[2020-08-16 20:37] LABS: Lipase 40 U/L (13-60)
[2020-08-16 21:07] LABS: Hepatitis A Antibody IgM Non-Reactive (Nonreactive); Hepatitis B Core IgM Non-Reactive (Nonreactive); Hepatitis B Surface Antigen Non-Reactive (Nonreactive); Hepatitis C Virus Antibody Non-Reactive (Nonreactive)
--- NOTE | 2020-08-16 22:07 | ECG_ITS ---
[facility] Test Date: 2020-08-16 Pat Name: Blayne Martinez Department: Room: 254 Gender: Male Mud Mill Tender: : 1945 Requested By: Maricarmen Rivera Order Number: [id number] Reading MD: LUIS SELBY Measurements Intervals [place] Rate: 82 P: 90 IL: 263 QRS: 45 QRSD: 76 T: 30 QT: 385 QTc: 452 Interpretive Statements SINUS RHYTHM WITH FIRST DEGREE AV BLOCK NONSPECIFIC T-WAVE ABNORMALITY Compared to ECG 08/16/2020 15:52:22 First degree AV block now present T-wave abnormality now present Electronically Signed On 08-17-2020 18:31:26 OFFSET DUPLICATING MACHINE OPERATOR by LUIS SELBY [id number]
[2020-08-16] MEDS: lactulose oral liq 20 gm/30 mL UDC 45 GM PO (23:09)
[2020-08-17] VITALS (12 sets, daily range): BP systolic 114–134; BP diastolic 56–74; PULSE 78–90; RESP 17–20; TEMP 36.6–37.3; O2SAT 94–98
[2020-08-17 01:22] LABS: Troponin 5 6HR 27.41 ng/L (0-15); Troponin 5 6HR Delta 5.41 ng/L (0-12)
--- NOTE | 2020-08-17 05:00 | USCV_ITS ---
Blayne Martinez Age: 74 Gender: M : 1945 Exam Date: 08/17/2020 06:40 Ordering Phys: Ryne Morgan MD Technologist: Kiran Gilbert Exam Location: [facility] [place] Indication: CARDIAC MURMUR, NEAR SYNCOPE BP: 115 / 58 HR: 83 Rhythm: Sinus Technical Quality: FAIR MEASUREMENTS (Male / Female) Normal Values 2D ECHO LV Diastolic Diameter PLAX 3.1 cm 4.2 - 5.9 / 3.9 - 5.3 cm LV Systolic Diameter PLAX 1.7 cm IVS Diastolic Thickness 1.0 cm 0.6 - 1.0 / 0.6 - 0.9 cm IVS Systolic Thickness 1.1 cm LVPW Diastolic Thickness 1.1 cm 0.6 - 1.0 / 0.6 - 0.9 cm LVPW Systolic Thickness 1.1 cm LVOT Diameter 2.0 cm LV Ejection Fraction 2D Teich 71.9 % LV Ejection Fraction MOD 2C 57.5 % LV Ejection Fraction 2C AL 57.2 % LA Diameter 4.5 cm LA Width 6.0 cm LA Height 6.2 cm RA Width 4.8 cm RA Height 5.3 cm Aorta at Sinotubular Diameter 3.5 cm M-MODE LV Diastolic Diameter MM 5.3 cm 4.2 - 5.9 / 3.9 - 5.3 cm LV Systolic Diameter MM 3.8 cm LV Ejection Fraction MM Teich 54.1 % IVS Diastolic Thickness MM 1.6 cm 0.6 - 1.0 / 0.6 - 0.9 cm IVS Systolic Thickness MM 1.7 cm LVPW Diastolic Thickness MM 0.9 cm 0.6 - 1.0 / 0.6 - 0.9 cm LVPW Systolic Thickness MM 1.8 cm RV Diastolic Diameter MM 1.5 cm Aortic Annulus Diameter 4.0 cm LA Ao Ratio MM 1.3 MV E Point Septal Separation 1.1 cm DOPPLER AV Peak Velocity 260.0 cm/s LVOT Peak Velocity 106.0 cm/s AV Area Cont Eq vti 1.4 cm squared AV Area Cont Eq pk 1.3 cm squared MV Area PHT 5.0 cm squared Mitral E to A Ratio 1.5 MV E' Velocity 61.5 cm/s Mitral E to MV E' Ratio 15.1 Mitral E to LV E' Lateral Ratio 13.9 Mitral E to LV E' Septal Ratio 16.7 TR Peak Velocity 340.3 cm/s TR Peak Gradient 46.3 mmHg TV Peak E Velocity 161.0 cm/s Right Atrial Pressure 3.0 mmHg Pulmonary Artery Systolic Pressu 49.3 mmHg PV Peak Velocity 136.0 cm/s FINDINGS Left Ventricle Normal left ventricular size and systolic function, EF 60 %. Mild left ventricular hypertrophy. No regional wall motion abnormalities. Grade III/IV diastolic dysfunction (restrictive filling pattern), severely elevated filling pressures. Right Ventricle The right ventricle is normal in size and function. Right Atrium The right atrium is normal in size. Left Atrium Mildly increased left atrial size. Mitral Valve Thickened mitral valve. Trace mitral valve regurgitation. Aortic Valve Mild to moderate aortic valve stenosis with a valve area of 1.4 cm squared . Peak velocity of 2.6 m/s with a peak gradient of 27 and a mean gradient of 13 mmHg. Tricuspid Valve Trace tricuspid valve regurgitation. Pulmonic Valve Pulmonic valve not well visualized. Pericardium Normal pericardium without effusion. Aorta Normal ascending aorta dimension. CONCLUSIONS Normal left ventricular size and systolic function, EF 60 %. Mild left ventricular hypertrophy. No regional wall motion abnormalities. Grade III/IV diastolic dysfunction (restrictive filling pattern), severely elevated filling pressures. Mild to moderate aortic valve stenosis with a valve area of 1.4 cm squared . Peak velocity of 2.6 m/s with a peak gradient of 27 and a mean gradient of 13 mmHg. Thickened mitral valve. Trace mitral valve regurgitation. Trace tricuspid valve regurgitation. There is no pericardial effusion. There are no intracardiac masses. Compared to the study from 12/22/2018, there is development of aortic valve stenosis and worsening of the LV diastolic function Dr Alyson Turner MD [facility] (Electronically Signed) Final Date: 17 August 2020 09:12 S
[2020-08-17 06:31] LABS: Basophils # 0.1 10^3/uL (0.0-0.1); Basophils % 1.1 %; Eosinophils # 0.2 10^3/uL (0.0-0.8); Hematocrit 31.4 % (42.0-52.0); Hemoglobin 10.5 g/dL (11.7-16.6); Lymphocytes # 1.7 10^3/uL (0.8-4.8); Lymphocytes % 29.7 %; Mean Corpuscular HGB Conc 33.4 g/dL (30.0-36.0); Mean Corpuscular Hemoglobin 36.3 pg (28.0-34.0); Mean Corpuscular Volume 108.7 fL (80-94); Mean Platelet Volume 10.8 fL (7.4-10.4); Monocytes # 0.8 10^3/uL (0.2-0.9); Monocytes % 14.8 %; Neutrophils # 2.92 10^3/uL (1.8-7.7); Neutrophils % 51.2 %; Nucleated Red Blood Cells % 0 %; Platelet Count 81 10^3/cmm (130-400); Red Blood Count 2.89 10^6/uL (4.1-5.3); Red Cell Distribution Width 15.2 % (12.1-15.1); White Blood Count 5.7 10^3/uL (4.0-10.0)
[2020-08-17 06:48] LABS: Anion Gap 11.6 (5-19); Blood Urea Nitrogen 14 mg/dL (8-23); Calcium 8.3 mg/dL (8.5-10.5); Carbon Dioxide 27 mmol/L (22-29); Chloride 103 mmol/L (98-107); Chol HDL Ratio 4.58 mg/dL (1.0-5.00); Cholesterol 119 mg/dL (0-200); Glucose 105 mg/dL (65-115); HDL Cholesterol 26 mg/dL (60-100); LDL Cholesterol Calculated 81 mg/dL (50-129); LDL HDL Ratio 3.12 RATIO (0.00-3.22); Osmolality Calculated 287 mOsm/kg (285-295); Potassium 3.6 mmol/L (3.5-5.1); Sodium 138 mmol/L (136-145); Triglycerides 61 mg/dL (0-150)
[2020-08-17] MEDS: potassium chloride ER 10 mEq Tablet PO (09:47)
[2020-08-17] MEDS: folic acid 1 mg Tablet PO (09:48)
[2020-08-17] MEDS: spironolactone 25 mg Tablet PO (09:48)
[2020-08-17] MEDS: cholecalciferol (vitamin D3) 1,000 unit Tablet 3000 UNIT PO (09:48)
--- NOTE | 2020-08-17 09:52 | PC.CHAP ---
Pastoral Care Encounter/Spiritual Assessment Type of Contact [] Declined test architect visit [] Patient/Family/Request visit [] Outpatient visit [] Follow-up visit [] Physician referral [] Code/Alert [x] Routine visit [] Staff referral [] Actively dying [] Patient sleeping [] Family support [] [] Out of room [] Palliative care [] [] Receiving care in room [] Pre-surgical visit [] Trauma [] Long length of stay [] ICU visit [] Other: Relational/Emotional Strength [x] Patient feels connected with others/family/visitors/staff [] Distress [] Loneliness/isolation [] Abandonment Spirituality of Patient [x] Person of Shahnaz x[x] Attends Restorationism of their Shahnaz [x]elieves in Prayer [] Reads Bible or Islam materials [] There are Spiritual issues to be addressed Sewing Machines Salesperson Interventions [x] Prayer [x] Active listening [x] Non-anxious presence [x] Spiritual/emotional support [] Crisis/trauma care [] Spiritual counseling [] Bereavement support [] Provided bereavement packet [] Provided Bible/devotional materials [] Provided toy/stuffed animal, coloring book to patient or family member [] Provided Communion [] Anointing/[place] [] Salvation [x] Completed spiritual assessment [] Other: Impact on Illness or Injury [] Angry [] Fearful [] Anxious [] Often cries [] Exhaustion [] Unable to work [] Unable to attend zoroastrian [] Unable to walk/stand [] Unable to read [] Unable to drive [] Unable to eat/drink [] Unable to sleep [] Unable to be with family [] Patient intubated [] Other: Summary patient has pain in stomach Time spent with patient 15 min
[2020-08-17] MEDS: levETIRAcetam 500 mg Tablet 750 MG PO ×2 (10:08→17:18)
[2020-08-17] MEDS: pantoprazole DR 40 mg Tablet PO (10:08)
[2020-08-17] MEDS: apixaban 5 mg Tablet 2.5 MG PO ×2 (10:09→17:19)
[2020-08-17] MEDS: FUROsemide 40 mg Tablet PO ×2 (10:10→14:56)
[2020-08-17] MEDS: lactulose oral liq 20 gm/30 mL UDC PO ×3 (13:18→20:53)
--- NOTE | 2020-08-17 16:35 | ECG_ITS ---
[facility] Test Date: 2020-08-18 Pat Name: Blayne Martinez Department: Room: 254 Gender: Male Foster Care Worker: : 1945 Requested By: Shruti Grant Order Number: [id number] Chas MD: Sintia Chapman M.D. Interpretive Statements NAME OF STUDY: LEXISCAN SESTAMIBI STRESS TEST INDICATION: Angina PROCEDURE: At the baseline, the blood pressure was 136/70 mmHg, oxygen saturation 94% with a heart rate of 77 bpm. The electrocardiogram showed normal sinus rhythm with first-degree AV block, normal axis with normal ST and T's. The Lexiscan was infused over a period of 20 seconds. A total of 0.4 milligrams of Lexiscan was infused. The stress phase was continued for a total of 5 minutes. Heart rate at the end of the stress phase was 80 bpm, oxygen saturation 96% with a blood pressure of 126/64 mm Hg. The EKG at the peak infusion revealed sinus rhythm with no significant ST-T wave changes. Sestamibi was injected 20 seconds after the Lexiscan infusion. Blood pressure at the end of the recovery phase was 129/73 mmHg, oxygen saturation 97% with a heart rate of 78 beats per minute. CONCLUSION: 1. Normal EKG response to LexiScan infusion. 2. No LexiScan induced chest pain or cardiac arrhythmia. 3. Normal blood pressure and heart rate response. 4. Sestamibi/sestamibi perfusion scan pending; see separate report. Electronically Signed On 08-18-2020 10:31:20 PURCHASING DIRECTOR by Sintia Chapman M.D. [email or web address] [id number]
[2020-08-17] MEDS: atorvastatin 40 mg Tablet 10 MG PO (17:19)
--- NOTE | 2020-08-17 17:52 | PM.PN ---
Subjective Subjective: Interval history: No current chest pain this morning, however reports that over the past week he has been trying to build a porch at his home when while working, has experienced several episodes of central chest pressure with associated dizziness and diaphoresis. Patient has remained rate controlled during his current stay. Additional history available, at bedside reports that patient has been acting strange for the past 3 days, more lethargic than usual. He had run out of his rifaximin at home and has not taken it in the last 3 days. Hemoglobin drifted down to 10.5 today. No gross melena or hematemesis reported. Occult blood has been ordered. He has additionally noted increased lower extremity edema over the past week, he was a instructed to increase Lasix to 40 twice a day and has had about 24 hours of this increased dose so far. Medications: Reviewed: Yes Vitals/I&O/Wt Last Vital Signs Temp 97.9 F 08/17/20 15:04 Pulse 78 08/17/20 15:04 Resp 18 08/17/20 15:04 BP 134/74 08/17/20 15:04 Pulse Ox 97 08/17/20 15:04 08/17/20 08/17/20 08/17/20 06:59 14:59 22:59 Intake Total 400 / 400 440 / 440 Output Total 300 / 300 Balance 100 / 100 440 / 440 Weight last 48 hrs Weight 65.862 kg Weight 108.862 kg Physical Exam Narrative: EXAM NARRATIVE: GEN: Awake, alert and oriented, no acute distress CVS: S1S2 N RS: CTA B/L Abd: Soft, nt/nd , bs+ REVENUE ACCOUNTING MANAGER: no focal neuro deficits Extremity 1+ pitting edema bilateral lower extremities Data : 08/17/20 05:54 08/17/20 05:54 A&P Assessment and plan (1) Chest pain: Status: Acute (2) Cardiac murmur: Status: Acute (3) Liver, cirrhosis, portal: Status: Acute (4) Hemochromatosis: Status: Acute (5) Atrial fibrillation: Status: Acute Qualifiers: Atrial fibrillation type: paroxysmal Qualified Code(s): I48.0 - Paroxysmal atrial fibrillation (6) AAA (abdominal aortic aneurysm): Status: Acute (7) Heart failure, chronic, with acute decompensation: Status: Acute Additional A&P Information 74-year-old male with a past medical history of thrombocytopenia, chronic, hemochromatosis, 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 Also reports an episode of lightheadedness and near syncope yesterday. Per review of patient's chart patient has had similar episodes in the past for which he has a loop recorder in place at least over the past year. Denies any palpitations. EKG is currently with sinus rhythm first-degree AV block. No acute ST-T wave changes. Troponin series negative. Exam notable for mild bilateral lower extremity pitting edema and relative increasing abdominal girth as noted by the patient. reports patient has also appeared more forgetful and increased lethargy over the last 3 days, has not taken rifaximin over 3 days. #Decompensated acute on chronic diastolic CHF. Patient currently has bilateral pitting edema, reports increasing lower extremity swelling over the past week, has increased his Lasix dose at home. Currently on Lasix p.o. 40 twice daily. We will switch to Lasix 40 mg IV twice daily and closely monitor urine output and renal numbers. Echocardiogram shows normal EF, grade 3 diastolic dysfunction It is possible that liver cirrhosis and possible portal hypertension may be contributing to his current presentation. No significant ascites noted on CT from yesterday. #Chest pain, ongoing over the past week, currently EKG without any acute ST-T wave changes, troponin series negative, does not represent AMI. However angina cannot be ruled out. Last stress test dates back to 2016. We will order stress test tomorrow morning due to concern for anginal type chest pain. #Liver cirrhosis, cause under evaluation, autoimmune and viral hepatitis has been excluded. Patient follows with a pet care technician in [place] via telemedicine, has not had any in person visit. Has not had a liver biopsy thus far. Signs of decompensated cirrhosis currently include lower extremity edema, which could be guest service representative of CHF versus decompensated cirrhosis. No significant ascites noted. Patient denies any current hematemesis or melena. Hemoglobin dropped down to 10. 5 is noted, check FOBT. LFTs are persistently elevated, close to recent baseline. reports increasing lethargy and mild disorientation since the last 3 days, resume rifaximin while inpatient. Lactulose 4 times daily to continue, titrate to 5 bowel movements per day. Check ammonia with a.m. labs. Additionally check TSH Continue spironolactone 25 mg p.o. daily, closely monitor kidney function and electrolytes. #A. fib with RVR, currently in sinus rhythm with first-degree AV block. Continue Eliquis 2.5 mg p.o. twice daily for now. Awaiting FOBT. #Anemia, hemoglobin down drifted to 10.5, check FOBT. #History of hemochromatosis, used to be on phlebotomies,non HFE per review of hematology notes. DVT prophylaxis: Currently on Eliquis Full code Attestations Medical Necessity Statement*: Change to inpatient admission, stress test in the morning, need for ongoing IV diuresis for decompensated heart failure, evaluate for hepatic encephalopathy, monitor hemoglobin closely, check occult blood. Coding Level of Care Code Acute Finance Executive for [facility] Fwd Diagnoses Chest pain R07.9 Cardiac murmur R01.1 Liver, cirrhosis, portal K74.69 Hemochromatosis E83.119 Atrial fibrillation I48.0 Atrial fibrillation type: paroxysmal AAA (abdominal aortic aneurysm) I71.4 Heart failure, chronic, with acute decompensation I50.9
[2020-08-18] VITALS (11 sets, daily range): BP systolic 112–136; BP diastolic 62–73; PULSE 75–100; RESP 16–18; TEMP 36.6–37.1; O2SAT 94–96
[2020-08-18] MEDS: FUROsemide 10 mg/mL SDV 4mL 40 MG IVP ×2 (04:03→17:32)
[2020-08-18 05:27] LABS: Basophils # 0.1 10^3/uL (0.0-0.1); Eosinophils # 0.3 10^3/uL (0.0-0.8); Eosinophils % 4.2 %; Hemoglobin 10.8 g/dL (11.7-16.6); Lymphocytes # 2.3 10^3/uL (0.8-4.8); Lymphocytes % 37.6 %; Mean Corpuscular HGB Conc 33.8 g/dL (30.0-36.0); Mean Corpuscular Hemoglobin 36.4 pg (28.0-34.0); Mean Corpuscular Volume 107.7 fL (80-94); Mean Platelet Volume 10.7 fL (7.4-10.4); Monocytes # 0.8 10^3/uL (0.2-0.9); Monocytes % 12.9 %; Neutrophils # 2.63 10^3/uL (1.8-7.7); Nucleated Red Blood Cells % 0 %; Platelet Count 83 10^3/cmm (130-400); Red Blood Count 2.97 10^6/uL (4.1-5.3); Red Cell Distribution Width 14.9 % (12.1-15.1)
[2020-08-18 05:43] LABS: Alanine Aminotransferase 38 U/L (0-41); Alkaline Phosphatase 116 IU/L (40-130); Ammonia 47 umol/L (16-60); Anion Gap 8.9 (5-19); Aspartate Amino Transferase 87 U/L (0-40); Blood Urea Nitrogen 11 mg/dL (8-23); Calcium 7.9 mg/dL (8.5-10.5); Carbon Dioxide 30 mmol/L (22-29); Chloride 98 mmol/L (98-107); Globulin 3.8 g/dL (1.3-4.6); Glucose 97 mg/dL (65-115); Osmolality Calculated 275 mOsm/kg (285-295); Potassium 3.9 mmol/L (3.5-5.1); Sodium 133 mmol/L (136-145); Total Bilirubin 3.2 mg/dL (0.15-1.2); Total Protein 5.8 g/dL (6.6-8.7)
[2020-08-18 05:54] LABS: Magnesium 1.8 mg/dL (1.7-2.3); Thyroid Stimulating Hormone 2.27 uIU/mL (0.27-4.20)
--- NOTE | 2020-08-18 07:27 | PC.NURSE ---
Pt to stress test: 0716 pt left floor via wheelchair to go to stress test; pt in good condition.
[2020-08-18] MEDS: regadenoson 0.4 Mg/5 ml Syringe IVP (08:15)
--- NOTE | 2020-08-18 09:42 | PC.NURSE ---
Back to floor; 0915 Pt back to floor from stress test.
[2020-08-18] MEDS: levETIRAcetam 500 mg Tablet 750 MG PO ×2 (10:18→17:32)
[2020-08-18] MEDS: lactulose oral liq 20 gm/30 mL UDC PO ×4 (10:18→21:27)
[2020-08-18] MEDS: pantoprazole DR 40 mg Tablet PO (10:18)
[2020-08-18] MEDS: potassium chloride ER 10 mEq Tablet PO (10:19)
[2020-08-18] MEDS: spironolactone 25 mg Tablet PO (10:20)
[2020-08-18] MEDS: folic acid 1 mg Tablet PO (10:20)
[2020-08-18] MEDS: apixaban 5 mg Tablet 2.5 MG PO ×2 (10:23→17:34)
[2020-08-18] MEDS: cholecalciferol (vitamin D3) 1,000 unit Tablet 3000 UNIT PO (10:24)
--- NOTE | 2020-08-18 11:39 | PC.CHAP ---
Pastoral Care Encounter/Spiritual Assessment Type of Contact [] Declined family member caretaker visit [x] Patient/Family/Request visit [] Outpatient visit [] Follow-up visit [] Physician referral [] Code/Alert [x] Routine visit [] Staff referral [] Actively dying [] Patient sleeping [] Family support [] [] Out of room [] Palliative care [] [] Receiving care in room [] Pre-surgical visit [] Trauma [] Long length of stay [] ICU visit [] Other: Relational/Emotional Strength [x] Patient feels connected with others/family/visitors/staff [] Distress [] Loneliness/isolation [] Abandonment Spirituality of Patient [x] Person of Shahnaz [x] Attends Mandaen of their Shahnaz [x] Believes in Prayer [x] Reads Bible or Quaker materials [] There are Spiritual issues to be addressed It Quality Assurance Analyst Interventions [x] Prayer [x] Active listening [] Non-anxious presence [] Spiritual/emotional support [] Crisis/trauma care [] Spiritual counseling [] Bereavement support [] Provided bereavement packet [] Provided Bible/devotional materials [] Provided toy/stuffed animal, coloring book to patient or family member [] Provided Communion [] Anointing/[place] [] Salvation [] Completed spiritual assessment [] Other: Impact on Illness or Injury [] Angry [] Fearful [] Anxious [] Often cries [] Exhaustion [] Unable to work [] Unable to attend adventist [] Unable to walk/stand [] Unable to read [] Unable to drive [] Unable to eat/drink [] Unable to sleep [] Unable to be with family [] Patient intubated [] Other: Summary Had a great visit with this good godly man. He is happy, confident, and a believer. He visited easily as we both know a lot of the same people, even his in-laws. He introduced me to his who came in before I left. I've played golf with his [id number] many times. He said: You made my day. That is a great blessing! Time spent with patient 30 minutes
--- NOTE | 2020-08-18 16:35 | NMCV_ITS ---
NM ashok perf SPECT r/s* [id number] Blayne Martinez Age: 74 Gender: M : 1945 Exam Date: 08/18/2020 07:19 Ordering Phys: Shruti Grant MD Technologist: PHILOMENA Grider Exam Location: [facility] Indications: CHEST PRESSURE/ LOW BP STRESS TEST [facility] IMAGE PROTOCOL Rest/Stress 1 Lexiscan Day Radiopharmaceutical Dose (mCi) Administration Site Administered by Rest: Tc-99m 11.0 IV PHILOMENA Amador Sestamibi Stress:Tc-99m 32.9 IV PHILOMENA Grider Sestamiandrea Rest: 18-Aug-2020 60 Discovery 630 Stress: 18-Aug-2020 30 Discovery 630 0.4mg Lexiscan. Images obtained in supine and prone position. SPECT RESULTS Technical Quality: Excellent Raw Data Analysis: Normal Image Corrections: No attenuation or motion correction applied Summed Stress Score: 0 Summed Rest Score: 0 Summed Difference Score: 0 PERFUSION FINDINGS SPECT images demonstrate homogeneous tracer distribution throughout the myocardium. FUNCTIONAL RESULTS (calculated via Gated SPECT) Stress Image LV EF (%): 73 Stress EDV (mL):124 TID: 1.03 Stress ESV (mL):34 FUNCTIONAL FINDINGS: The left ventricle is normal in size. Transient Ischemia Dilatation of 1. There is normal left ventricular systolic function. The left ventricular ejection fraction is normal with a value of 73%. There is normal left ventricular wall thickening with no regional wall motion abnormality. IMPRESSIONS 1. Myocardial perfusion imaging is normal. 2. Overall left ventricular systolic function is normal without regional wall motion abnormalities. 3. The left ventricular ejection fraction is normal with a value of 73%. 4. Normal EKG response to Lexiscan infusion. Refer to separate report for details. 5. Scan indicates low risk for cardiac events. Sintia Chapman MD (Electronically Signed) Final Date: 18 August 2020 10:31 S
[2020-08-18] MEDS: atorvastatin 40 mg Tablet 10 MG PO (17:32)
--- NOTE | 2020-08-18 19:48 | PM.PN ---
Subjective Subjective: Interval history: Underwent stress test today, returned normal, still c/o some chest discomfort with arm movement. Denies dyspnea, LE swelling persisting, unchanged over yesterday. Medications: Reviewed: Yes Vitals/I&O/Wt Last Vital Signs Temp 98.6 F 08/18/20 14:54 Pulse 93 08/18/20 19:43 Resp 17 08/18/20 19:43 BP 120/69 08/18/20 14:54 Pulse Ox 96 08/18/20 19:43 08/18/20 08/18/20 08/18/20 06:59 14:59 22:59 Intake Total 240 / 240 240 / 480 Output Total 1350 / 1850 175 / 175 350 / 525 Balance -1350 / -1190 65 / 65 -110 / -45 Weight last 48 hrs Weight 109.86 kg Weight 65.862 kg Physical Exam Narrative: EXAM NARRATIVE: GEN: Awake, alert and oriented, no acute distress CVS: S1S2 N RS: CTA B/L Abd: Soft, nt/nd , bs+ CUSTOMER SUCCESS ADVOCATE: no focal motor neuro deficits Data : 08/18/20 05:16 08/18/20 05:16 A&P Assessment and plan (1) Chest pain: Status: Acute (2) Cardiac murmur: Status: Acute (3) Liver, cirrhosis, portal: Status: Acute (4) Hemochromatosis: Status: Acute (5) Atrial fibrillation: Status: Acute Qualifiers: Atrial fibrillation type: paroxysmal Qualified Code(s): I48.0 - Paroxysmal atrial fibrillation (6) AAA (abdominal aortic aneurysm): Status: Acute (7) Heart failure, chronic, with acute decompensation: Status: Acute Additional A&P Information 74-year-old male with a past medical history of thrombocytopenia, chronic, hemochromatosis, 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 Per review of patient's chart patient has had similar episodes in the past for which he has a loop recorder in place at least over the past year. Denies any palpitations. EKG is currently with sinus rhythm first-degree AV block. No acute ST-T wave changes. Troponin series negative. Exam notable for mild bilateral lower extremity pitting edema and relative increasing abdominal girth as noted by the patient. . #Decompensated acute on chronic diastolic CHF. Continue Lasix 40 mg IV twice daily and closely monitor urine output and renal function. Echocardiogram shows normal EF, grade 3 diastolic dysfunction It is possible that liver cirrhosis and possible portal hypertension may be contributing to his current presentation. No significant ascites noted on CT from yesterday. #Chest pain, ongoing over the past week, currently EKG without any acute ST-T wave changes, troponin series negative, does not represent AMI. Stress test today returned WNL. #Liver cirrhosis, cause under evaluation, autoimmune and viral hepatitis has been excluded. Patient follows with a biomedical engineering professor in [place] via telemedicine, has not had any in person visit yet. Has not had a liver biopsy thus far. Signs of decompensated cirrhosis currently include lower extremity edema, which could be inside technical sales representative of CHF versus decompensated cirrhosis. No significant ascites noted. Patient denies any current hematemesis or melena. Hemoglobin dropped down to 10. 5 is noted, check FOBT. LFTs are persistently elevated, close to recent baseline. Ammonia level normal, TSH within range Continue spironolactone 25 mg p.o. daily, closely monitor kidney function and electrolytes. Fluid restriction #A. fib with RVR, currently in sinus rhythm with first-degree AV block. Continue Eliquis 2.5 mg p.o. twice daily for now. Awaiting FOBT. #Anemia, hemoglobin down drifted to 10.5, check FOBT. #History of hemochromatosis, used to be on phlebotomies,non HFE per review of hematology notes. DVT prophylaxis: Currently on Eliquis Full code Attestations Medical Necessity Statement*: ongoing need for iv diuresis to optimize volume overload Coding Level of Care Code Acute Sueding And Buffing Machine Operator for Chg Fwd Diagnoses Chest pain R07.9 Cardiac murmur R01.1 Liver, cirrhosis, portal K74.69 Hemochromatosis E83.119 Atrial fibrillation I48.0 Atrial fibrillation type: paroxysmal AAA (abdominal aortic aneurysm) I71.4 Heart failure, chronic, with acute decompensation I50.9
[2020-08-19 04:00] VITALS: BP 119/64; PULSE 79; RESP 18; TEMP 37.1; O2SAT 94
[2020-08-19] MEDS: FUROsemide 10 mg/mL SDV 4mL 40 MG IVP (04:20)
[2020-08-19 06:00] VITALS: PULSE 77
[2020-08-19 07:18] VITALS: BP 135/71; PULSE 81; RESP 16; TEMP 37.2; O2SAT 95
[2020-08-19 07:51] VITALS: PULSE 78; RESP 16; O2SAT 94
--- NOTE | 2020-08-19 07:52 | PC.NURSE ---
Patient refused to get up to a chair for breakfast
[2020-08-19] MEDS: levETIRAcetam 500 mg Tablet 750 MG PO (08:22)
[2020-08-19] MEDS: apixaban 5 mg Tablet 2.5 MG PO (08:22)
[2020-08-19] MEDS: spironolactone 25 mg Tablet PO (08:23)
[2020-08-19] MEDS: pantoprazole DR 40 mg Tablet PO (08:23)
[2020-08-19] MEDS: potassium chloride ER 10 mEq Tablet PO (08:23)
[2020-08-19] MEDS: cholecalciferol (vitamin D3) 1,000 unit Tablet 3000 UNIT PO (08:23)
[2020-08-19] MEDS: lactulose oral liq 20 gm/30 mL UDC PO ×2 (08:24→12:06)
[2020-08-19] MEDS: folic acid 1 mg Tablet PO (08:24)
--- NOTE | 2020-08-19 11:03 | PM.PN ---
Subjective Subjective: Interval history: Vitals/I&O/Wt Last Vital Signs Temp 98.9 F 08/19/20 07:18 Pulse 78 08/19/20 07:51 Resp 16 08/19/20 07:51 BP 135/71 08/19/20 07:18 Pulse Ox 94 08/19/20 07:51 08/18/20 08/19/20 08/19/20 22:59 06:59 14:59 Intake Total 240 / 480 240 / 240 Output Total 350 / 525 725 / 1250 300 / 300 Balance -110 / -45 -725 / -770 -60 / -60 Weight last 48 hrs Weight 111.493 kg Weight 109.86 kg Data : 08/18/20 05:16 08/18/20 05:16 Coding Level of Care Code Acute Software Reliability Engineer for Pillo Edwards
[2020-08-19 11:39] VITALS: BP 118/64; PULSE 84; RESP 17; TEMP 37.7; O2SAT 93
--- NOTE | 2020-08-19 15:10 | P.DS_ITS ---
Discharge Providers Date of Admission: 08/17/20 18:07 Date of Discharge: August 19, 2020 Attending Provider at Admission: Ryne Morgan Attending Provider at Discharge: Shruti Grant MD Primary Care Provider: Fanta Shukla MD Diagnoses at Discharge Discharge Diagnosis (1) Chest pain: Status: Acute (2) Cardiac murmur: Status: Acute (3) Liver, cirrhosis, portal: Status: Acute (4) Hemochromatosis: Status: Acute (5) Atrial fibrillation: Status: Acute Permanent problem details: On Eliquis Qualifiers: Atrial fibrillation type: paroxysmal Qualified Code(s): I48.0 - Paroxysmal atrial fibrillation (6) AAA (abdominal aortic aneurysm): Status: Acute (7) Heart failure, chronic, with acute decompensation: Status: Acute Reason for Visit Reason for Visit: Chest Pressure/Low BP Hospital Course Hospital Course 74-year-old gentleman with a past history of hemochromatosis, liver cirrhosis, atrial fibrillation on anticoagulation with Eliquis presented to the hospital on August 16 2020 with chief complaint of recurrent dizziness, lightheadedness and left-sided chest pressure. EKG did not show any acute ST-T wave changes, troponin series did not have significant delta's. Due to underlying risk factors and ongoing chest pain, there was concern for angina and patient underwent a stress test on August 17, 2020 which showed normal EKG response to Lexiscan infusion and normal myocardial perfusion imaging. Left ventricular systolic function was normal without regional wall motion abnormalities. Echocardiogram showed LVEF of 60% with mild LVH, grade 3 diastolic dysfunction and severely elevated filling pressures. Mild to moderate AAS with a valve area of 1.4 cm? were noted. His diastolic function was noted to have worsened when compared to December 2018. He did have quite significant bilateral lower extremity edema and subjectively increased abdominal girth which appeared to be a result of acute on chronic decompensated diastolic heart failure. He received IV diuresis with Lasix 40 mg IV every 12 hours, had adequate urine output, weight is down 5 pounds, lower extremity edema is additionally improving. He is being discharged today in stable condition with p.o. Lasix 80 mg twice daily. Follow-up has been arranged with cardiology on August 24, 2020. Alternate etiology for lower extremity edema could be decompensated liver cirrhosis, however patient does not have significant abdominal ascites noted on CT of the abdomen. CTA of the chest was negative for PE. CT abdomen said questionable mild pancreatitis, however patient has no GI symptoms at this present time, lipase was normal, therefore unlikely pancreatitis clinically. Physical Exam Narrative: EXAM NARRATIVE: GEN: Awake, alert and oriented, no acute distress CVS: S1S2 N RS: CTA B/L Abd: Soft, nt/nd , bs+ CREDIT CHARGE AUTHORIZER: improving pedal edema over B/L LE Discharge Data Data Completed and Pending: Completed Studies During Hospitalization Category Date Time Status CT angio chest w abd pel w con Urge nt Cat Scan 08/16/20 17:25 Completed Sestamibi Stress Test Request Routi ne Exams 08/17/20 16:35 Completed XR chest 1V lee ble [id number] Stat Exams 08/16/20 16:07 Completed NM ashok perf SPECT r/s* [id number] Routin e Nuc Med 08/18/20 16:35 Completed CV echo complete* [id number] Routine Ultrasound 08/17/20 05:00 Completed Pending at discharge Category Date Time Status Immunochemical Fe ton OCB Stat Lab 08/17/20 16:36 Uncollected Vitals: Last Vital Signs Temp 99.9 F H 08/19/20 11:39 Pulse 84 08/19/20 11:39 Resp 17 08/19/20 11:39 BP 118/64 08/19/20 11:39 Pulse Ox 93 08/19/20 11:39 Discharge Plan Discharge Patient Disposition: Home Condition: Stable Prescriptions: New cyclobenzaprine 10 mg Tablet 5 mg PO BID PRN (Reason: Muscle Spasms) 5 Days Qty: 10 RF: 0 Continued levetiracetam 750 mg tablet 750 mg PO BID@ RF: 0 Eliquis 5 mg tablet 2.5 mg PO BID@, RF: 0 albuterol sulfate 90 mcg/actuation HFA aerosol inhaler 2 puff INHALATION Q6H PRN (Reason: Shortness Of Breath) RF: 0 pantoprazole 40 mg tablet,delayed release (DR/EC) 40 mg PO DAILY@08 RF: 0 pravastatin 20 mg tablet 10 mg PO DAILY@17 RF: 0 folic acid 1 mg Tablet 1 mg PO DAILY@08 RF: 0 Xifaxan 550 mg Tablet 550 mg PO BID Qty: 60 RF: 0 lactulose 10 gram/15 mL solution 45 ml PO QID RF: 0 Vitamin D3 25 mcg (1,000 unit) Tablet 3,000 unit PO DAILY@08 RF: 0 potassium chloride 10 mEq tablet extended release 10 meq PO DAILY@08 RF: 0 spironolactone 25 mg tablet 25 mg PO DAILY@08 RF: 0 Changed furosemide 40 mg tablet 80 mg PO BID@08,14 10 Days Qty: 0 RF: 0 Discharge Orders: Discharge Order (Routine); Ordered 08/19/20 Ordered By: Shruti Grant Referrals: Sintia Chapman MD [Physician] - 08/24/20 2:30 pm (to be seen either this monday 08/21 or Thursday 08/24 APPOINTMENT WITH [facility] ON Monday ) Fanta Shukla MD [Primary Care Provider] - 08/26/20 8:00 am Discharge Diet: Cardiac Discharge Activity: Resume usual activity Patient Instructions: Cyclobenzaprine (By mouth), Congestive Heart Failure, Chest Pain (GEN), CHF Stoplight, Chest Pain Stoplight Discharge Attestations Time Spent in Discharge Care*: greater than 30 min Specific Discharge Activities: educating patient, educating and/or supporting family/caregiver and documenting/other paperwork Status at Discharge: Cognitive status at discharge: cognitively intact , Behavioral status at discharge: cooperative , Quality Metrics Clinical Quality Measures During this hospital stay, did patient experience: None Coding Level of Care Code Acute Managing Principal for Yudig Fwd Diagnoses Chest pain R07.9 Cardiac murmur R01.1 Liver, cirrhosis, portal K74.69 Hemochromatosis E83.119 Atrial fibrillation I48.0 Atrial fibrillation type: paroxysmal AAA (abdominal aortic aneurysm) I71.4 Heart failure, chronic, with acute decompensation I50.9
[2020-08-19 15:53] VITALS: BP 118/64; PULSE 84; RESP 17; TEMP 37.7; O2SAT 93
== END 2020-08-19 16:04 | disposition home or self-care (01) | DRG 292 ==
LOC: ER 19:19 → MEDSURG 21:05
PROVIDERS: Emergency Medicine; Admitting Provider Internal Medicine; Emergency Provider Emergency Medicine; PCP Internal Medicine Hematology & Oncology; Visit Provider Student in an Organized Health Care Education/Training Program
DX: I11.0 Hypertensive heart disease with heart failure (principal); K76.6 Portal hypertension; I50.33 Acute on chronic diastolic (congestive) heart failure; R07.9 Chest pain, unspecified; E83.119 Hemochromatosis, unspecified; K74.60 Unspecified cirrhosis of liver; I48.0 Paroxysmal atrial fibrillation; Z79.01 Long term (current) use of anticoagulants; I35.0 Nonrheumatic aortic (valve) stenosis; I71.4 Abdominal aortic aneurysm, without rupture; N40.0 Benign prostatic hyperplasia without lower urinary tract symptoms; I65.29 Occlusion and stenosis of unspecified carotid artery; K57.90 Diverticulosis of intestine, part unspecified, without perforation or abscess without bleeding; K44.9 Diaphragmatic hernia without obstruction or gangrene; E78.5 Hyperlipidemia, unspecified; Z86.73 Personal history of transient ischemic attack (TIA), and cerebral infarction without residual deficits; D69.6 Thrombocytopenia, unspecified; R01.1 Cardiac murmur, unspecified; Z79.51 Long term (current) use of inhaled steroids; D64.9 Anemia, unspecified
CPT/HCPCS: 36415; 71045; 71275; 74177; 78452; 80048; 80053; 80061; 80074; 82140; 83690; 83735; 84443; 84484; 85025; 85610; 93005; 93017; 93306; 99285; A9500; G0378; J1940; J2785; Q9967

== ENCOUNTER 2020-08-26 05:40 | Outpatient (CLI) | payer OTHER, MEDICARE, SELFPAY ==
[2020-08-26 08:42] LABS: Basophils # 0.1 10^3/uL (0.0-0.1); Basophils % 1.2 %; Eosinophils # 0.2 10^3/uL (0.0-0.8); Eosinophils % 3.6 %; Hemoglobin 12.3 g/dL (11.7-16.6); Lymphocytes # 2.1 10^3/uL (0.8-4.8); Lymphocytes % 32.9 %; Mean Corpuscular HGB Conc 34.2 g/dL (30.0-36.0); Mean Corpuscular Hemoglobin 37.5 pg (28.0-34.0); Mean Corpuscular Volume 109.8 fL (80-94); Monocytes # 0.8 10^3/uL (0.2-0.9); Neutrophils # 3.16 10^3/uL (1.8-7.7); Nucleated Red Blood Cells % 0 %; Platelet Count 100 10^3/cmm (130-400); Red Blood Count 3.28 10^6/uL (4.1-5.3); Red Cell Distribution Width 14.5 % (12.1-15.1); White Blood Count 6.5 10^3/uL (4.0-10.0)
[2020-08-26 08:56] LABS: Ferritin 588 ng/mL (30-400); Transferrin 130 mg/dL (200-360)
--- NOTE | 2020-08-26 16:16 | ONC FU_ITS ---
Dr. Shukla follow up note Patient: Blayne Martinez Unit #: [id number]: [id number] Dicatated By: Fanta Shukla M.D.Date of Visit:Aug 26, 2020 Onc Med Follow-up/Prog Note History of Present Illness: Mr. Blayne Martinez, is a 74-year-old gentleman with a history of iron overload but hemochromatosis was ruled out. And was treated with regular phlebotomies at [facility] due to elevated transaminases. 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 As per patient he was admitted to hospital in December 2018 with episode of upper GI bleeding requiring 3 units of blood transfusion and underwent EGD on December 22, 2018 which showed 2 cm duodenal ulcer in the posterior bulb with an adherent clot. He was also found to have known erosive antral gastropathy. Follow-up EGD done on January 29, 2019 showed complete healing of duodenal ulcer but continued to have non-erosive antral gastropathy. Patient also had colonoscopy done on January 29, 2019 which revealed 5 mm sessile descending colon tubular adenoma. And he was recommended follow-up colonoscopy in 5 years, in 2023. Patient underwent FibroScan on March 08, 2019 which showed CAP score of 297, which was indicative of moderate to severe steatosis. The median elastography measurement was 22.3K PA, which is indicating of advanced fibrosis with underlying liver cirrhosis, patient has been followed by jute bag sewer in [place]. In October 2019 patient went to [facility] ER with headaches and MRI scan of the head was done which was unremarkable for intracranial bleed His lab work done on May 10, 2018 showed white blood count 5.5 hemoglobin 15.8 hematocrit 47.4 platelets 128,000 and follow-up labs done on October 03, 2018 showed platelet count 95,000 with a normal white blood count and hemoglobin on October 17, 2018 is platelet count was 104,000 on November 08, 2019, count was 98,000 and on February 06, 2020 platelet count dropped to 76,000 with normal hemoglobin. Patient denies any evidence of nosebleed or gum bleed or hematuria or recent episode of melena or hematochezia but patient is on Eliquis for atrial fibrillation and again as mentioned above history of duodenal ulcer but follow-up EGD done on January 2019 showed healing of duodenal ulcer. Patient has mild thrombocytopenia in 2017 and 19 now progressive but still with mild to moderate isolated thrombocytopenia. As per patient and his he was started on Keppra in October 2018 with questionable seizure but patient said he never had any seizure in the recent past. Patient had CT scan of abdomen pelvis done on October 27, 2019 which showed subtle nodularity of hepatic contour, suggestive of cirrhosis, spleen unremarkable no central lymphadenopathy Patient denies any specific complaints today, denies any melena hematochezia, denies any hemoptysis or hematemesis, denies any nosebleed or gum bleed, denies any petechiae but old healing ecchymosis involving upper extremities. Denies any night sweats, denies any peripheral lymphadenopathy, denies any weight loss. Came for follow-up, denies any specific complaint except persistent generalized weakness and fatigue, as per patient he was recently admitted to hospital on August 17, 2020 with chest pain and lightheadedness and recurrent dizziness which patient underwent stress test on August 17, 2020 which shows normal EKG response to Lexiscan infusion and normal myocardial perfusion imaging. And echo showed ejection fraction was 60% and was treated with diuretics for lower extremity edema which improved because of ascites he had CT scan of abdomen done which showed questionable mild pancreatitis but his lipase was normal and cirrhosis of the liver spleen was normal size. And CTA of the chest which was negative for PE patient denies any fever chills denies any nausea or vomiting denies any diarrhea or constipation, tolerating phlebotomies on as-needed basis well Medications: Albuterol Sulfate Aerosol Powder, Breath Activated Inhalation, Cyclobenzaprine HCl 1 Tablet (of 5 mg) Oral b.i.d., Eliquis 0.5 Tablet (of 5 mg) Oral b.i.d., Folic Acid 1 Tablet (of 1 mg) Oral daily, Furosemide 1 Tablet (of 40 mg) Oral daily, Klor-Con 10 1 Tablet (of 10 meq) Tablet, controlled release Oral daily, Lactulose 30 g (of 10 g) Pack Oral t.i.d., levETIRAcetam 1 Tablet (of 750 mg) Oral b.i.d., Metoprolol Succinate ER 12.5 mg (of 25 mg) Tablet SR 24 HR Oral daily, Pravastatin Sodium 1 Tablet (of 20 mg) Oral at bedtime, Vitamin D3 1 Tablet (of 3000 mg) Oral daily, Xifaxan 1 Tablet (of 550 mg) Oral b.i.d. Allergies: No Known Allergies. Review of Systems: Review of Systems is not available for this patient. Vital Signs: Performed on Aug 26, 2020 09:39 Height - 72.00 in Weight - 239.6 lbs (HIGH) BSA - 2.30 sq.m BMI - 32.50 (HIGH) Temperature - 98.6 F Pulse - 92 /min Respiration - 18 /min BP - 134/74 mm(hg) O2 Sat - 99 % Pain - 6 Performance Status: 2 - Ambulatory/capable of all self-care, unable to perform any work activities. Up and about more than 50% of waking hours. (ECOG) Physical Examination: ENMT - Poor oral hygiene, no mouth sores, no thrush, Respiratory - Poor air entry, few basilar rales otherwise clear, Cardiovascular - Regular rate and rhythm of heart, Abdomen - Soft, bowel sounds present, Extremities - 1+ edema bilaterally. Lab/Imaging: Test performed on Aug 13, 2020 12:40 WBC 8.5 10 3/uL RBC 3.30 10 6/uL HGB 12.2 g/dL HCT 35.7 % MCV 108.2 fL MCH 37.0 pg MCHC 34.2 g/dL RDW 14.5 % Platelet Count 100 10 3/cmm MPV 10.6 fL Neutrophils 3.31 10 3/uL Lymphocytes 4.1 10 3/uL Monocytes 0.9 10 3/uL Eosinophils 0.2 10 3/uL Basophils 0.1 10 3/uL Neutrophil % 38.9 % Lymphocyte % 47.8 % Monocyte % 10.2 % Eosinophil % 1.9 % Basophils % 1.1 % NRBC % 0 % Test performed on Jul 16, 2020 10:54 Ferritin 619 ng/mL Test performed on Jun 17, 2020 11:30 Transferrin 156 mg/dL Test performed on Jun 17, 2020 09:35 CBC Slide Review Slide Review Perform SLIDE REVIEW AGREES WITH AUTOMATED RESULTS ST Test performed on May 28, 2020 00:00 Manual Diff Cancelled via OM: Cancelled in Connected System Test performed on Apr 06, 2020 13:27 Iron 168 mcg/dL Iron Binding Capacity (TIBC) 185 mcg/dl % Iron Saturation 90.8 % UIBC < 17 mcg/dL Impression: Isolated thrombocytopenia, etiology unclear but appears multifactorial could be due to medicine like Keppra, as per patient he was started on Keppra last year and since then his thrombocytopenia is progressive, other possibility could be splenic sequestration as patient has advanced stage cirrhosis but CT scan of abdomen done in October 2019 showed spleen was normal size other possibility could be low-grade ITP or considering his age underlying myelodysplasia cannot be ruled out. History of stable compensated GARCIA related liver cirrhosis, viral hepatitis and autoimmune liver disorder ruled out History of iron storage disease, hemochromatosis ruled out, treated with regular phlebotomies at [facility] in the past Repeat DNA testing for hereditary hemochromatosis done on April 06, 2020 came back negative for C282Y and H63D pathogenic variants in the HFE gene. History of duodenal ulcer diagnosed in January 2019 History of colon polyp status post removal in January 2019 History of atrial fibrillation, on Eliquis On Keppra for questionable history of seizure History of osteoarthritis, history of hypertension Plan: Discussed with patient regarding his labs white blood count 6.5 hemoglobin 12.3 hematocrit 36 platelets 100,000 ferritin 588 compared to 649 previously on August 06 2.21, transferrin 130 Clinically, patient is doing well with no new signs symptoms, at this point we will proceed with phlebotomy 250 cc and then he will return to clinic in 1 month with CBC and ferritin, his ferritin could be elevated due to other factors like chronic inflammation and hepatic cirrhosis but his transferrin is low which could be due to liver disease or excessive iron stores. So at this point we will consider phlebotomy with a 250 cc blood drawn and then repeat CBC and ferritin in a month and goal is to keep ferritin below 200 instead of 100, considering his other comorbid condition excessive phlebotomies may impact him negatively. Signed By: Fanta Shukla M.D. <<Signature on File>>
== END 2020-08-26 05:41 | disposition home or self-care (01) ==
LOC: ONCMED 05:42
PROVIDERS: PCP Family Medicine; Visit Provider Internal Medicine Hematology & Oncology
DX: D69.6 Thrombocytopenia, unspecified (principal); K76.0 Fatty (change of) liver, not elsewhere classified; K75.4 Autoimmune hepatitis; D50.9 Iron deficiency anemia, unspecified; K26.9 Duodenal ulcer, unspecified as acute or chronic, without hemorrhage or perforation; I48.91 Unspecified atrial fibrillation; G40.909 Epilepsy, unspecified, not intractable, without status epilepticus; M19.90 Unspecified osteoarthritis, unspecified site; I10 Essential (primary) hypertension; Z86.010 Personal history of colon polyps; Z79.01 Long term (current) use of anticoagulants; Z79.899 Other long term (current) drug therapy
CPT/HCPCS: 36415; 82728; 84466; 85025; 99195; 99214

== ENCOUNTER 2020-10-01 07:49 | Outpatient (CLI) | payer OTHER, MEDICARE, SELFPAY ==
[2020-10-01 08:58] LABS: Basophils # 0.1 10^3/uL (0.0-0.1); Eosinophils # 0.3 10^3/uL (0.0-0.8); Eosinophils % 4.9 %; Hematocrit 30.5 % (42.0-52.0); Hemoglobin 10.1 g/dL (11.7-16.6); Lymphocytes % 29.6 %; Mean Corpuscular HGB Conc 33.1 g/dL (30.0-36.0); Mean Corpuscular Hemoglobin 36.9 pg (28.0-34.0); Mean Corpuscular Volume 111.3 fL (80-94); Mean Platelet Volume 10.8 fL (7.4-10.4); Monocytes # 0.9 10^3/uL (0.2-0.9); Monocytes % 12.9 %; Neutrophils # 3.41 10^3/uL (1.8-7.7); Nucleated Red Blood Cells % 0 %; Platelet Count 100 10^3/cmm (130-400); Red Blood Count 2.74 10^6/uL (4.1-5.3); Red Cell Distribution Width 14.7 % (12.1-15.1); White Blood Count 6.7 10^3/uL (4.0-10.0)
[2020-10-01 09:12] LABS: Ferritin 375 ng/mL (30-400); Iron 94 ug/dL (59-158); Percent Saturation 54.6 % (20-50); Total Iron Binding Capacity 172 mcg/dl; Unsaturated Iron Binding 78 ug/dL (112-347)
--- NOTE | 2020-10-01 11:06 | ONC FU_ITS ---
Dr. Shukla follow up note Patient: Blayne Martinez Unit #: [id number]: 1945 Dicatated By: Fanta Shukla M.D.Date of Visit:Oct 01, 2020 Onc Med Follow-up/Prog Note History of Present Illness: Mr. Blayne Martinez, is a 75-year-old gentleman with a history of iron overload but hemochromatosis was ruled out. And was treated with [place]le[place]omies [place] [facility] due to elevated transaminases. 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 As per patient he was admitted to hospital in December 2018 with episode of upper GI bleeding requiring 3 units of blood transfusion and underwent EGD on December 22, 2018 which showed 2 cm duodenal ulcer in the posterior bulb with an adherent clot. He was also found to have known erosive antral gastropathy. Follow-up EGD done on January 29, 2019 showed complete healing of duodenal ulcer but continued to have non-erosive antral gastropathy. Patient also had colonoscopy done on January 29, 2019 which revealed 5 mm sessile descending colon tubular adenoma. And he was recommended follow-up colonoscopy in 5 years, in 2023. Patient underwent FibroScan on March 08, 2019 which showed CAP score of 297, which was indicative of moderate to severe steatosis. The median elastography measurement was 22.3K PA, which is indicating of advanced fibrosis with underlying liver cirrhosis, patient has been followed by activity coordinator in [place]. In October 2019 patient went to [facility] with headaches and MRI scan of the head was done which was unremarkable for intracranial bleed His lab work done on May 10, 2018 showed white blood count 5.5 hemoglobin 15.8 hematocrit 47.4 platelets 128,000 and follow-up labs done on October 03, 2018 showed platelet count 95,000 with a normal white blood count and hemoglobin on October 17, 2018 is platelet count was 104,000 on November 08, 2019, count was 98,000 and on February 06, 2020 platelet count dropped to 76,000 with normal hemoglobin. Patient denies any evidence of nosebleed or gum bleed or hematuria or recent episode of melena or hematochezia but patient is on Eliquis for atrial fibrillation and again as mentioned above history of duodenal ulcer but follow-up EGD done on January 2019 showed healing of duodenal ulcer. Patient has mild thrombocytopenia in 2017 and 19 now progressive but still with mild to moderate isolated thrombocytopenia. As per patient and his he was started on Keppra in October 2018 with questionable seizure but patient said he never had any seizure in the recent past. Patient had CT scan of abdomen pelvis done on October 27, 2019 which showed subtle nodularity of hepatic contour, suggestive of cirrhosis, spleen unremarkable no central lymphadenopathy Patient denies any specific complaints today, denies any melena hematochezia, denies any hemoptysis or hematemesis, denies any nosebleed or gum bleed, denies any petechiae but old healing ecchymosis involving upper extremities. Denies any night sweats, denies any peripheral lymphadenopathy, denies any weight loss. Came for follow-up, complaining of generalized weakness and fatigue, as per patient had episode of confusion/mental status changes which is common especially when his ammonia level goes up and as per patient is also taking Lasix 80 mg twice a day instead of 40 mg once a day which was increased by his commercial sales specialist because of persistent and progressive lower extremity edema. Otherwise patient denies any melena or hematochezia denies any nausea or vomiting denies any fever or chills denies any headaches or blurred vision. Medications: Albuterol Sulfate Aerosol Powder, Breath Activated Inhalation, Cyclobenzaprine HCl 1 Tablet (of 5 mg) Oral b.i.d., Eliquis 0.5 Tablet (of 5 mg) Oral b.i.d., Folic Acid 1 Tablet (of 1 mg) Oral daily, Furosemide 1 Tablet (of 40 mg) Oral daily, Klor-Con 10 1 Tablet (of 10 meq) Tablet, controlled release Oral daily, Lactulose 30 g (of 10 g) Pack Oral t.i.d., levETIRAcetam 1 Tablet (of 750 mg) Oral b.i.d., Metoprolol Succinate ER 12.5 mg (of 25 mg) Tablet SR 24 HR Oral daily, Pravastatin Sodium 1 Tablet (of 20 mg) Oral at bedtime, Vitamin D3 1 Tablet (of 3000 mg) Oral daily, Xifaxan 1 Tablet (of 550 mg) Oral b.i.d. Allergies: No Known Allergies. Review of Systems: ENMT - No problems with hearing, no sore throat, no sinus drainage. No mouth sores, Hematologic/Lymphatic - No easy bruising or bleeding. The patient denies any tender or palpable lymph nodes, Respiratory - No dyspnea on exertion, chest pain, cough or hemoptysis, Cardiovascular - No anginal chest pain, palpitations or orthopnea, Integumentary - No chronic rashes, inflammation, ulcerations or skin changes. Vital Signs: Performed on Oct 01, 2020 10:22 Height - 72.00 in Weight - 258 lbs (HIGH) BSA - 2.37 sq.m BMI - 34.99 (HIGH) Performed on Oct 01, 2020 08:47 Height - 72.00 in Temperature - 98.6 F Pulse - 77 /min Respiration - 18 /min BP - 127/64 mm(hg) O2 Sat - 97 % Pain - 0 Fatigue - 5 Performance Status: Perf. Status is not available for this patient. Physical Examination: ENMT - No mouth sores, no thrush,, Respiratory - Poor air entry otherwise clear, Cardiovascular - Irregular rhythm and rate, Abdomen - Soft, bowel sounds present, Extremities - 2+ edema bilaterally. Lab/Imaging: Test performed on Aug 13, 2020 12:40 WBC 8.5 10 3/uL RBC 3.30 10 6/uL HGB 12.2 g/dL HCT 35.7 % MCV 108.2 fL MCH 37.0 pg MCHC 34.2 g/dL RDW 14.5 % Platelet Count 100 10 3/cmm MPV 10.6 fL Neutrophils 3.31 10 3/uL Lymphocytes 4.1 10 3/uL Monocytes 0.9 10 3/uL Eosinophils 0.2 10 3/uL Basophils 0.1 10 3/uL Neutrophil % 38.9 % Lymphocyte % 47.8 % Monocyte % 10.2 % Eosinophil % 1.9 % Basophils % 1.1 % NRBC % 0 % Test performed on Jul 16, 2020 10:54 Ferritin 619 ng/mL Test performed on Jun 17, 2020 11:30 Transferrin 156 mg/dL Test performed on Jun 17, 2020 09:35 CBC Slide Review Slide Review Perform SLIDE REVIEW AGREES WITH AUTOMATED RESULTS ST Test performed on May 28, 2020 00:00 Manual Diff Cancelled via OM: Cancelled in Connected System Test performed on Apr 06, 2020 13:27 Iron 168 mcg/dL Iron Binding Capacity (TIBC) 185 mcg/dl % Iron Saturation 90.8 % UIBC < 17 mcg/dL Impression: Isolated thrombocytopenia, etiology unclear but appears multifactorial could be due to medicine like Keppra, as per patient he was started on Keppra last year and since then his thrombocytopenia is progressive, other possibility could be splenic sequestration as patient has advanced stage cirrhosis but CT scan of abdomen done in October 2019 showed spleen was normal size other possibility could be low-grade ITP or considering his age underlying myelodysplasia cannot be ruled out. History of stable compensated GARCIA related liver cirrhosis, viral hepatitis and autoimmune liver disorder ruled out History of iron storage disease, hemochromatosis ruled out, treated with regular phlebotomies [place] [facility] in the past Repeat DNA testing for hereditary hemochromatosis done on April 06, 2020 came back negative for C282Y and H63D pathogenic variants in the HFE gene. History of duodenal ulcer diagnosed in January 2019 History of colon polyp status post removal in January 2019 History of atrial fibrillation, on Eliquis On Keppra for questionable history of seizure History of osteoarthritis, history of hypertension Plan: Discussed with patient regarding his labs white blood count 6.7 hemoglobin 10.1 g compared to 12.3 g on August 26, 2020 and hematocrit 30.5 platelets 100,000 compared to 100,000 previously and his iron studies shows ferritin 375 compared to 588 previously and iron saturation 54.6 and iron 94 Clinically, patient is doing reasonably well but now with generalized weakness and fatigue which could be multifactorial including due to dehydration due to diuretics and poor oral intake and other possibility could be elevated ammonia level. Patient was advised to talk to his commercial sales specialist to adjust his Lasix dose in relation to his oral intake and also advised to discuss with PMD regarding his ammonia level as well as diet which would minimize risk of hepatic encephalopathy. But we will follow him from hematological point of view, his mild thrombocytopenia is stable but there is a drop in his hemoglobin which again could be multifactorial including phlebotomy for iron overload, his repeat iron studies shows his ferritin has gone down to 375 compared to 588 his iron saturation is down to 54.6 compared to 90.8 on April 06, 2020 and his iron is 94 compared to 168 previously saw his ferritin could be elevated due to other reasons including iron overload so we will consider phlebotomies on as-needed basis while maintaining his hemoglobin more than 11 g. Patient will return to clinic in 1 month with CBC and ferritin level. Patient's and patient expressed full understanding and they will be in touch with his commercial sales specialist as well as PMD regarding any issues related to their medication and diet adjustment. Signed By: Fanta Shukla M.D. <<Signature on File>>
== END 2020-10-01 07:50 | disposition home or self-care (01) ==
PROVIDERS: Internal Medicine Hematology & Oncology; PCP Family Medicine; Visit Provider Internal Medicine Medical Oncology
DX: D69.6 Thrombocytopenia, unspecified (principal); D50.9 Iron deficiency anemia, unspecified; K76.0 Fatty (change of) liver, not elsewhere classified; I48.20 Chronic atrial fibrillation, unspecified; G40.909 Epilepsy, unspecified, not intractable, without status epilepticus; I10 Essential (primary) hypertension; M19.90 Unspecified osteoarthritis, unspecified site; Z79.01 Long term (current) use of anticoagulants; Z79.899 Other long term (current) drug therapy; Z86.010 Personal history of colon polyps
CPT/HCPCS: 36415; 82728; 83540; 83550; 85025; 99214

== ENCOUNTER → 2020-10-09 10:46 | Outpatient (BNVA) | payer OTHER, SELFPAY | PROVIDERS: PCP Family Medicine; Visit Provider Nurse Practitioner Family | DX: I50.33 Acute on chronic diastolic (congestive) heart failure (principal); I11.0 Hypertensive heart disease with heart failure | CPT/HCPCS: 80048; 83880 ==

== ENCOUNTER → 2020-10-14 10:20 | Outpatient (BNVA) | payer OTHER, SELFPAY | PROVIDERS: PCP Family Medicine; Visit Provider Nurse Practitioner Family | DX: I11.0 Hypertensive heart disease with heart failure (principal); I50.33 Acute on chronic diastolic (congestive) heart failure | CPT/HCPCS: 80048; 83880 ==

== ENCOUNTER 2020-10-19 05:16 | Emergency (ER) | payer OTHER, MEDICARE, SELFPAY ==
[2020-10-19 05:28] VITALS: BP 131/74; PULSE 73; RESP 16; TEMP 36.8; O2SAT 97; BMI 32.4
--- NOTE | 2020-10-19 05:37 | ECG_ITS ---
[facility] Test Date: 2020-10-19 Pat Name: Blayne Martinez Department: Room: Gender: Male Anesthesiologist/Physician: : 1945 Requested By: Pool Gilbert Order Number: [id number] Doherty MD: Sintia Chapman M.D. Measurements Intervals [place] Rate: 74 P: 82 [place]: 257 QRS: 56 QRSD: 75 T: 49 QT: 417 QTc: 465 Interpretive Statements SINUS RHYTHM WITH FIRST DEGREE AV BLOCK WITH OCCASIONAL SUPRAVENTRICULAR PREMATURE COMPLEXES Compared to ECG 08/16/2020 22:59:36 T-wave abnormality no longer present Electronically Signed On 10-20-2020 9:31:45 CDT by Sintia Chapman M.D. [email or web address][email or web address] defiance regional hospital.[facility]/store/NU/[id number] f
--- NOTE | 2020-10-19 05:37 | XRR_ITS ---
PROCEDURE INFORMATION: Exam: XR Chest Exam date and time: 10/19/2020 5:44 AM Age: 75 years old Clinical indication: Shortness of breath; Additional info: SOB cp TECHNIQUE: Imaging protocol: XR of the chest. Views: 1 view. COMPARISON: CR XR chest 1V portable [id number] 08/16/2020 4:38 PM FINDINGS: Tubes, catheters and devices: Continued loop recorder over the left heart. Lungs: Still no airspace disease in the lungs. Pleural spaces: Still no pneumothorax or apparent pleural fluid. Heart/Mediastinum: Still no cardiomegaly. Vasculature: Continued aortic elongation. Bones/joints: No visible acute bony disease. XR/XR chest 1V portable [id number] IMPRESSION: No acute findings or interval change. Loop recorder again evident.
[2020-10-19 05:47] LABS: Basophils # 0.1 10^3/uL (0.0-0.1); Eosinophils # 0.2 10^3/uL (0.0-0.8); Eosinophils % 2.3 %; Hemoglobin 10.7 g/dL (11.7-16.6); Lymphocytes # 2.2 10^3/uL (0.8-4.8); Mean Corpuscular HGB Conc 33.4 g/dL (30.0-36.0); Mean Corpuscular Hemoglobin 36.1 pg (28.0-34.0); Mean Corpuscular Volume 108.1 fL (80-94); Mean Platelet Volume 10.5 fL (7.4-10.4); Monocytes # 1.2 10^3/uL (0.2-0.9); Monocytes % 14.2 %; Neutrophils # 4.53 10^3/uL (1.8-7.7); Neutrophils % 54.4 %; Nucleated Red Blood Cells % 0 %; Platelet Count 127 10^3/cmm (130-400); Red Blood Count 2.96 10^6/uL (4.1-5.3); Red Cell Distribution Width 13.7 % (12.1-15.1); White Blood Count 8.3 10^3/uL (4.0-10.0)
[2020-10-19 05:50] LABS: INR 2.02 (0.8-1.2)
[2020-10-19 05:51] LABS: Partial Thromboplastin Time 40.9 SECONDS (23.9-36.7)
[2020-10-19 05:53] VITALS: PULSE 74
[2020-10-19 06:01] LABS: Troponin(5th) Baseline 27 ng/L (0-15)
[2020-10-19 06:25] LABS: Add Urine Microscopic? NO; Charge for UA Resulting for Rev
[2020-10-19 06:28] LABS: Alanine Aminotransferase 33 U/L (0-41); Albumin Level 2.5 g/dL (3.5-5.2); Alkaline Phosphatase 163 IU/L (40-130); Anion Gap 9.4 (5-19); Aspartate Amino Transferase 74 U/L (0-40); Blood Urea Nitrogen 21 mg/dL (8-23); Calcium 8.1 mg/dL (8.5-10.5); Carbon Dioxide 32 mmol/L (22-29); Chloride 91 mmol/L (98-107); Globulin 4.4 g/dL (1.3-4.6); Glucose 109 mg/dL (65-115); NT Pro B Type Natriuretic Pept 127 pg/mL (0-125); Osmolality Calculated 272 mOsm/kg (285-295); Potassium 3.4 mmol/L (3.5-5.1); Sodium 129 mmol/L (136-145); Total Bilirubin 2.9 mg/dL (0.15-1.2); Total Protein 6.9 g/dL (6.6-8.7)
[2020-10-19 06:35] LABS: Urine Appearance Clear (CLEAR); Urine Color Yellow (Yellow); pH Urine 8 (5-7)
[2020-10-19 06:36] LABS: Bilirubin Urine Neg (Negative); Blood Urine Neg (Negative); Glucose Urine UA Norm (Normal); Ketones Urine Negative (Negative); Leukocyte Esterase Urine Negative (Negative); Nitrate Urine Negative (Negative); Protein Urine Neg (Negative); Specific Gravity, Urine 1.005 (1.005-1.030); Sulfosalicylic Acid Urine Negative (Negative); Urobilinogen Urine Norm (Negative)
[2020-10-19 06:55] VITALS: BP 129/64; PULSE 77; RESP 18; TEMP 36.8; O2SAT 98
--- NOTE | 2020-10-19 07:10 | ED_ITS ---
HPI - Chest Pain General: Chief Complaint: Chest Pain Stated Complaint: chest pain, n/v Time Seen by Provider: 10/19/20 05:20 History of Present Illness: HPI narrative: 75-year-old male with a history of atrial fibrillation and preserved EF diastolic heart dysfunction. He presents with chest discomfort, mainly left-sided, and shortness of breath. This awoke him this morning. He is not noted a significant change in weight or leg edema, just shortness of breath. He denies cough or fever. He does not use oxygen at home. MD complaint: chest pain Pertinent past history: other Onset (ago): minute(s) Timing of current episode: constant Prior episodes: Yes Onset: during rest and awoke with symptoms Pain location: substernal and left chest Pain radiation: none Severity: moderate Quality: tightness Relieving factors: nothing Exacerbating factors: exertion Associated symptoms: Reports dyspnea, nausea and palpitations; Deny diaphoresis, fever(s), leg edema or vomiting Treatment prior to arrival: nitroglycerin Review of Systems Const: Denies: fever(s) or diaphoresis Card: Reports: chest pain and palpitations Resp: Reports: dyspnea GI: Reports: nausea; Denies: vomiting [facility] PFSH: Medical History AAA (abdominal aortic aneurysm) 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 Atrial fibrillation On Eliquis BPH (benign prostatic hyperplasia) Carotid artery stenosis Diverticulosis Duodenal ulcer Gastritis Hemochromatosis Hiatal hernia History of colon polyps Follow-up colonoscopy in 2023 HTN (hypertension) Hyperlipidemia Internal hemorrhoids Liver, cirrhosis, portal Portal hypertension S/P ORIF (open reduction internal fixation) fracture RIGHT HIP Status post placement of implantable loop recorder TIA (transient ischemic attack) UTI (urinary tract infection) Surgical History History of cystoscopy History of esophagogastroduodenoscopy (EGD) History of vasectomy S/P discectomy Status post colonoscopy with polypectomy Family History Mother Stroke Brother Xravo-3-rwzgbvqzvrq deficiency Denies family history of Anesthesia complication Bleeding disorder Social History (Reviewed 10/14/20 @ 10:16 by FAITH Luo Smoking and tobacco status: never smoked Alcohol intake: never Household members: spouse Marital status: Current occupational status: retired Physical Exam Const: COMMON NORMALS: no acute distress, patient oriented x3 and alert Eye: COMMON NORMALS: Equal, round and reactive pupils present and EOMs intact bilaterally PUPIL: Yes Equal, round and reactive pupils present Chest: COMMONS NORMALS: normal inspection of the chest Resp: COMMON NORMALS: normal respiratory effort, No use of accessory muscles and clear to auscultation bilaterally AUSCULTATION: clear to auscultation bilaterally Cardio: COMMON NORMALS: regular rate and Peripheral pulses 2+ throughout RATE: regular rate RHYTHM: abnormal rhythm irregularly irregular PERIPHERAL PULSES: Peripheral pulses 2+ throughout GI: COMMON NORMALS: Normal to inspection, nondistended, normoactive bowel sounds present, Soft to palpation and no masses PALPATION: Yes Soft to palpation Neuro: COMMON NORMALS: patient oriented x3 SENSORIUM/ORIENTATION: Yes alert Course Vital Signs: Vital signs: Vital Signs Temperature 98.3 F 10/19/20 06:55 Pulse Rate 77 10/19/20 06:55 Respiratory Rate 18 10/19/20 06:55 Blood Pressure 129/64 10/19/20 06:55 Pulse Oximetry 98 10/19/20 06:55 MDM - Chest Pain MDM Narrative: Medical decision making narrative: 75-year-old male with a history of diastolic heart dysfunction. Presents with chest discomfort and shortness of breath. He had a stress test in August, that was negative for inducible ischemia. Chest x-ray reveals no acute findings. EKG shows a sinus rhythm with what appears to be a first-degree AV block., Although currently he is in a rate controlled atrial fibrillation on the monitor. There are no acute ST changes. His hemoglobin is 10.7. White blood cell count 8.3. Sodium 129, potassium 3.4. His creatinine is mildly bumped at 1.4. His first troponin is 27. Second troponin is pending. With a negative stress test in August, if he does not elevate his second troponin, I think he can go home. He does not appear to be in fluid overload. Lab Data: Labs: Lab Results 10/19/20 10/19/20 10/19/20 Range/Units 05:25 05:25 05:25 WBC 8.3 (4.0-10.0) 10^3/ uL RBC 2.96 L (4.1-5.3) 10^6/u L Hgb 10.7 L (11.7-16.6) g/dL Hct 32.0 L (42.0-52.0) % MCV 108.1 H (80-94) fL MCH 36.1 H (28.0-34.0) pg MCHC 33.4 (30.0-36.0) g/dL RDW 13.7 (12.1-15.1) % Plt Count 127 L (130-400) 10^3/c mm MPV 10.5 H (7.4-10.4) fL Neut % (Auto) 54.4 % Lymph % (Auto) 27.0 % [place] % (Auto) 14.2 % Eos % (Auto) 2.3 % Baso % (Auto) 1.0 % Neut # (Auto) 4.53 (1.8-7.7) 10^3/u L Lymph # (Auto) 2.2 (0.8-4.8) 10^3/u L [place] # (Auto) 1.2 H (0.2-0.9) 10^3/u L Eos # (Auto) 0.2 (0.0-0.8) 10^3/u L Baso # (Auto) 0.1 (0.0-0.1) 10^3/u L Nucleated RBC % (a uto) 0 % Nucleated RBCs # 0.0 /100WBC PT 23.30 H (12.1-14.9) SECO NDS INR 2.02 H (0.8-1.2) APTT 40.9 H (23.9-36.7) SECO NDS Sodium 129 L (136-145) mmol/L Potassium 3.4 L (3.5-5.1) mmol/L Chloride 91 L (98-107) mmol/L Carbon Dioxide 32 H (22-29) mmol/L Anion Gap 9.4 (5-19) BUN 21 (8-23) mg/dL Creatinine 1.4 H (0.7-1.2) mg/dL GFR Calculation Not Reportable Glucose 109 (65-115) mg/dL Calculated Osmolal ity 272 L (285-295) mOsm/k g Calcium 8.1 L (8.5-10.5) mg/dL Total Bilirubin 2.9 H (0.15-1.2) mg/dL AST 74 H (0-40) U/L ALT 33 (0-41) U/L Alkaline Phosphata se 163 H (40-130) IU/L Troponin T Baselin e (0-15) ng/L NT-Pro-B Natriuret Pep 127 H (0-125) pg/mL Total Protein 6.9 (6.6-8.7) g/dL Albumin 2.5 L (3.5-5.2) g/dL Globulin 4.4 (1.3-4.6) g/dL Urine Color (Yellow) Urine Appearance (CLEAR) Urine pH (5-7) Ur Specific Gravit y (1.005-1.030) Urine Protein (Negative) Urine Glucose (UA) (Normal) Urine Ketones (Negative) Urine Blood (Negative) Urine Nitrate (Negative) Urine Bilirubin (Negative) Prot Sulfosalicyli c Acd (Negative) Urine Urobilinogen (Negative) mg/dL Ur Leukocyte Marcie ase (Negative) 10/19/20 10/19/20 Range/Units 05:25 06:15 WBC (4.0-10.0) 10^3/ uL RBC (4.1-5.3) 10^6/u L Hgb (11.7-16.6) g/dL Hct (42.0-52.0) % MCV (80-94) fL MCH (28.0-34.0) pg MCHC (30.0-36.0) g/dL RDW (12.1-15.1) % Plt Count (130-400) 10^3/c mm MPV (7.4-10.4) fL Neut % (Auto) % Lymph % (Auto) % [place] % (Auto) % Eos % (Auto) % Baso % (Auto) % Neut # (Auto) (1.8-7.7) 10^3/u L Lymph # (Auto) (0.8-4.8) 10^3/u L [place] # (Auto) (0.2-0.9) 10^3/u L Eos # (Auto) (0.0-0.8) 10^3/u L Baso # (Auto) (0.0-0.1) 10^3/u L Nucleated RBC % (a uto) % Nucleated RBCs # /100WBC PT (12.1-14.9) SECO NDS INR (0.8-1.2) APTT (23.9-36.7) SECO NDS Sodium (136-145) mmol/L Potassium (3.5-5.1) mmol/L Chloride (98-107) mmol/L Carbon Dioxide (22-29) mmol/L Anion Gap (5-19) BUN (8-23) mg/dL Creatinine (0.7-1.2) mg/dL GFR Calculation Glucose (65-115) mg/dL Calculated Osmolal ity (285-295) mOsm/k g Calcium (8.5-10.5) mg/dL Total Bilirubin (0.15-1.2) mg/dL AST (0-40) U/L ALT (0-41) U/L Alkaline Phosphata se (40-130) IU/L Troponin T Baselin e 27 H (0-15) ng/L NT-Pro-B Natriuret Pep (0-125) pg/mL Total Protein (6.6-8.7) g/dL Albumin (3.5-5.2) g/dL Globulin (1.3-4.6) g/dL Urine Color Yellow (Yellow) Urine Appearance Clear (CLEAR) Urine pH 8 H (5-7) Ur Specific Gravit y 1.005 (1.005-1.030) Urine Protein Neg (Negative) Urine Glucose (UA) Norm (Normal) Urine Ketones Negative (Negative) Urine Blood Neg (Negative) Urine Nitrate Negative (Negative) Urine Bilirubin Neg (Negative) Prot Sulfosalicyli c Acd Negative (Negative) Urine Urobilinogen Norm (Negative) mg/dL Ur Leukocyte Marcie ase Negative (Negative) Discharge Plan Discharge Patient Disposition: Home Clinical Impression: Chest pain Qualifiers: Chest pain type: unspecified Qualified Code(s): R07.9 - Chest pain, unspecified Atrial fibrillation Qualifiers: Atrial fibrillation type: unspecified chronic Qualified Code(s): I48.20 - Chronic atrial fibrillation, unspecified Condition: Stable Prescriptions: No Action levetiracetam 750 mg tablet 750 mg PO BID@08,17 RF: 0 Eliquis 5 mg tablet 2.5 mg PO BID@08,17 RF: 0 albuterol sulfate 90 mcg/actuation HFA aerosol inhaler 2 puff INHALATION Q6H PRN (Reason: Shortness Of Breath) RF: 0 pantoprazole 40 mg tablet,delayed release (DR/EC) 40 mg PO DAILY@08 RF: 0 pravastatin 20 mg tablet 10 mg PO DAILY@17 RF: 0 cyclobenzaprine 5 mg tablet 5 mg PO BID PRNRF: 0 metolazone 2.5 mg tablet 2.5 mg PO DAILY Qty: 30 RF: 3 potassium chloride 10 mEq tablet extended release 20 meq PO DAILY RF: 0 ciprofloxacin HCl 500 mg tablet 500 mg PO BID Qty: 10 RF: 0 folic acid 1 mg Tablet 1 mg PO DAILY@08 RF: 0 Xifaxan 550 mg Tablet 550 mg PO BID Qty: 60 RF: 0 lactulose 10 gram/15 mL solution 45 ml PO QID RF: 0 Vitamin D3 25 mcg (1,000 unit) Tablet 3,000 unit PO DAILY@08 RF: 0 spironolactone 25 mg tablet 25 mg PO DAILY@08 RF: 0 furosemide 40 mg tablet 80 mg PO BID@08,14 10 Days Qty: 0 RF: 0 Discharge Orders: Discharge ED (Routine); Ordered 10/19/20 Ordered By: Pool Valle Referrals: Jessica Moreira MD [Primary Care Provider] - 1-3 days Patient Instructions: Heart Failure (ED) Activity Restrictions/Additional Instructions: Continue your medications. Return for worsening chest discomfort, shortness of breath, other concerning symptoms despite treatment. Call your doctor later today and let them know you were here, they may wish for more outpatient testing. Coding Level of Care Code ED Dip Stand Loader for Chg Fwd Exam Detailed
--- NOTE | 2020-10-19 07:12 | PC.NURSE ---
Report given to Pool AMATO
[2020-10-19] MEDS: FUROsemide 10 mg/mL SDV 4mL 40 MG IVP (07:34)
[2020-10-19] MEDS: potassium chloride ER 20 mEq Tablet 40 MEQ PO (07:34)
[2020-10-19 07:56] LABS: Troponin 5 2HR 24.85 ng/L (0-15)
[2020-10-19 07:58] LABS: Troponin 5 2HR Delta -2.15 ABS# (0-10)
[2020-10-19 08:08] VITALS: BP 128/69; PULSE 72; RESP 18; O2SAT 93
[2020-10-19 09:23] VITALS: BP 135/65; PULSE 77; RESP 15; O2SAT 97
--- NOTE | 2020-10-19 11:37 | ECG_ITS ---
[facility] Test Date: 2020-10-19 Pat Name: Blayne Martinez Department: Room: Gender: Male Sample Wrapper: : 1945 Requested By: Pool Gilbert Order Number: [id number] Chas MD: Sintia Chapman M.D. Measurements Intervals [place] Rate: 72 P: 71 [place]: 246 QRS: 40 QRSD: 86 T: 41 QT: 451 QTc: 495 Interpretive Statements SINUS RHYTHM WITH FIRST DEGREE AV BLOCK WITH OCCASIONAL SUPRAVENTRICULAR PREMATURE COMPLEXES PROLONGED QT INTERVAL Compared to ECG 10/19/2020 05:20:02 Prolonged QT interval now present Electronically Signed On 10-20-2020 17:41:19 CDT by Sintia Chapman M.D. [id number]
== END 2020-10-19 09:25 | disposition home or self-care (01) ==
PROVIDERS: Emergency Provider Emergency Medicine; PCP Family Medicine
DX: R07.9 Chest pain, unspecified (principal); I48.20 Chronic atrial fibrillation, unspecified
CPT/HCPCS: 36415; 71045; 80053; 81003; 83880; 84484; 85025; 85610; 85730; 93005; 96374; 99284; J1940

== ENCOUNTER 2020-10-21 16:27 | Inpatient (IN) | payer OTHER, MEDICARE, SELFPAY ==
[2020-10-21 16:32] VITALS: BP 130/68; PULSE 83; RESP 18; TEMP 36.8; O2SAT 99; BMI 31.6
--- NOTE | 2020-10-21 18:27 | ECG_ITS ---
[facility] Test Date: 2020-10-21 Pat Name: Blayne Martinez Department: Room: 259 Gender: Male Financial Foundations Associate: : 1945 Requested By: Michell Leach Order Number: [id number] Chas MD: Sintia Chapman M.D. Measurements Intervals [place] Rate: 78 P: 78 [place]: 235 QRS: 58 QRSD: 84 T: 66 QT: 413 QTc: 473 Interpretive Statements SINUS RHYTHM WITH FIRST DEGREE AV BLOCK WITH OCCASIONAL SUPRAVENTRICULAR PREMATURE COMPLEXES Compared to ECG 10/19/2020 07:42:54 Prolonged QT interval no longer present Electronically Signed On 10-22-2020 14:10:25 CDT by Sintia Chapman M.D. [email or web address] [email or web address] [email or web address]/[id number] f
--- NOTE | 2020-10-21 18:27 | XRR_ITS ---
PROCEDURE INFORMATION: Exam: XR Chest Exam date and time: 10/21/2020 6:38 PM Age: 75 years old Clinical indication: Pain; Chest pressure; Additional info: Weakness, cp TECHNIQUE: Imaging protocol: XR of the chest. Views: 1 view. Total images: 1 COMPARISON: CR XR chest 1V portable [id number] 10/19/2020 5:58 AM FINDINGS: Lungs: No visible active interstitial or alveolar airspace disease. Pleural spaces: Unremarkable. No pleural effusion. No pneumothorax. Heart/Mediastinum: Cardiac structures and configuration with arteriosclerosis. Bones/joints: Unremarkable for age. XR/XR chest 1V portable [id number] IMPRESSION: Nonacute
[2020-10-21 19:37] LABS: Basophils # 0.1 10^3/uL (0.0-0.1); Basophils % 1.1 %; Eosinophils # 0.2 10^3/uL (0.0-0.8); Hemoglobin 10.8 g/dL (11.7-16.6); Lymphocytes # 2.6 10^3/uL (0.8-4.8); Lymphocytes % 33.2 %; Mean Corpuscular HGB Conc 32.7 g/dL (30.0-36.0); Mean Corpuscular Hemoglobin 35.2 pg (28.0-34.0); Mean Corpuscular Volume 107.5 fL (80-94); Mean Platelet Volume 10.1 fL (7.4-10.4); Monocytes % 12.2 %; Neutrophils # 4.01 10^3/uL (1.8-7.7); Neutrophils % 50.7 %; Nucleated Red Blood Cells % 0 %; Platelet Count 127 10^3/cmm (130-400); Red Blood Count 3.07 10^6/uL (4.1-5.3); Red Cell Distribution Width 13.7 % (12.1-15.1); White Blood Count 7.9 10^3/uL (4.0-10.0)
[2020-10-21 19:48] LABS: Lactic Sepsis W/Reflex 1.8 mmol/L (0.5-2.2)
[2020-10-21 19:49] LABS: Troponin(5th) Baseline 30 ng/L (0-15)
[2020-10-21 19:55] LABS: Alanine Aminotransferase 34 U/L (0-41); Albumin Level 2.3 g/dL (3.5-5.2); Alkaline Phosphatase 127 IU/L (40-130); Anion Gap 9.8 (5-19); Aspartate Amino Transferase 78 U/L (0-40); Blood Urea Nitrogen 20 mg/dL (8-23); Calcium 7.7 mg/dL (8.5-10.5); Carbon Dioxide 30 mmol/L (22-29); Chloride 97 mmol/L (98-107); Globulin 4.6 g/dL (1.3-4.6); Glucose 121 mg/dL (65-115); NT Pro B Type Natriuretic Pept 262 pg/mL (0-125); Osmolality Calculated 280 mOsm/kg (285-295); Potassium 3.8 mmol/L (3.5-5.1); Sodium 133 mmol/L (136-145); Total Bilirubin 3.4 mg/dL (0.15-1.2); Total Protein 6.9 g/dL (6.6-8.7)
--- NOTE | 2020-10-21 20:14 | CTR_ITS ---
PROCEDURE INFORMATION: Exam: CT Head Without Contrast Exam date and time: 10/21/2020 8:14 PM Age: 75 years old Clinical indication: Dizziness and weakness, extremity; Bilateral TECHNIQUE: Imaging protocol: Computed tomography of the head without contrast. Total images: 207 Radiation optimization: All CT scans at this facility use at least one of these dose optimization techniques: automated exposure control; mA and/or kV adjustment per patient size (includes targeted exams where dose is matched to clinical indication); or iterative reconstruction. COMPARISON: CT head wo con* [id number] 12/31/2019 12:43 AM RADIATION DOSE METRICS: Total DLP (mGy-cm): 887.26 FINDINGS: Brain: No evidence of active or acute intracranial pathologic process, hemorrhage, or trauma. Mild atrophic changes not inconsistent with the patient's chronological age. No mass effect. No midline shift. Mild small vessel ischemic disease with senile periventricular leukomalacia. No visible dense MCA or insular ribbon sign. Cerebral ventricles: No ventriculomegaly. Bones/joints: Unremarkable. No acute fracture. Paranasal sinuses: Visualized sinuses are unremarkable. No fluid levels. Mastoid air cells: Visualized mastoid air cells are well aerated. Soft tissues: Unremarkable. CT/CT head wo con* [id number] IMPRESSION: No evidence of active or acute intracranial pathologic process, hemorrhage, or trauma. Radiation Dose CTDIVOL = (mGy): DLP = 887.26 (mGy-cm)
--- NOTE | 2020-10-21 20:35 | ED_ITS ---
HPI - Weakness General: Chief complaint: Weakness Stated complaint: GENERAL WEAKNESS, N/V Time Seen by Provider: 10/21/20 19:57 Source: patient Mode of arrival: ambulatory Limitations: no limitations History of Present Illness: HPI Narrative: 75-year-old male states been having weakness over the last 2 to 3 days. He states has been having difficulty ambulating and has been feeling too weak to be able to walk. He states he is also had some slight chest pain over the last day as well. Denies any fevers. Denies any cough. Denies any focal deficits. Per that this has been going on for days with no acute onset recently Associated symptoms: Denies chest pain, chills, dysuria, easy bruising, fever(s), nausea or vomiting Review of Systems Const: Denies: fever(s), chills, body aches or change in appetite Eyes: Denies: blurry vision or eye discomfort ENMT: Denies: throat pain or dental pain Card: Denies: chest pain Resp: Denies: dyspnea GI: Denies: abdominal pain, nausea, vomiting or diarrhea : Denies: dysuria Musc: Denies: neck pain or back pain Skin/Breast: Denies: rash Neuro: Reports: weakness in extremities Psych: Denies: depression Shai/Lymph: Denies: easy bruising All/Imm: Denies: urticaria PFSH ED PFSH: Medical History AAA (abdominal aortic aneurysm) 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 Atrial fibrillation On Eliquis BPH (benign prostatic hyperplasia) Carotid artery stenosis Diverticulosis Duodenal ulcer Gastritis Hemochromatosis Hiatal hernia History of colon polyps Follow-up colonoscopy in 2023 HTN (hypertension) Hyperlipidemia Internal hemorrhoids Liver, cirrhosis, portal Portal hypertension S/P ORIF (open reduction internal fixation) fracture RIGHT HIP Status post placement of implantable loop recorder TIA (transient ischemic attack) UTI (urinary tract infection) Surgical History History of cystoscopy History of esophagogastroduodenoscopy (EGD) History of vasectomy S/P discectomy Status post colonoscopy with polypectomy Family History Mother Stroke Brother Pkgif-2-gevdtjqbvrv deficiency Denies family history of Anesthesia complication Bleeding disorder Social History Smoking and tobacco status: never smoked Alcohol intake: never Household members: spouse Marital status: Current occupational status: retired Physical Exam Const: COMMON NORMALS: no acute distress, patient oriented x3 and healthy appearing HENMT: COMMON NORMALS: normocephalic and atraumatic HEAD & SCALP: normocephalic and atraumatic Eye: COMMON NORMALS: Equal, round and reactive pupils present and EOMs intact bilaterally PUPIL: Yes Equal, round and reactive pupils present Neck/C-Spine: COMMON NORMALS: full ROM and supple Chest: COMMONS NORMALS: normal inspection of the chest and normal palpation of entire chest wall Resp: COMMON NORMALS: normal respiratory effort, No retractions, No use of accessory muscles and clear to auscultation bilaterally AUSCULTATION: clear to auscultation bilaterally Cardio: COMMON NORMALS: regular rate, regular rhythm and No murmurs present (Cardio) RATE: regular rate RHYTHM: regular rhythm GI: COMMON NORMALS: Normal to inspection, nondistended, normoactive bowel sounds present, Soft to palpation, non-tender and no masses PALPATION: Yes Soft to palpation Extremity: COMMON NORMALS: normal to inspection and full ROM Neuro: COMMON NORMALS: patient oriented x3, moves all extremities and no focal motor deficits Psych: COMMON NORMALS: mental status grossly normal, Normal thought process present and cooperative THOUGHT PROCESS: Normal thought process present Skin: COMMON NORMALS: no rashes or lesions noted and no wounds GENERAL SKIN EXAM: no rashes or lesions noted Course Vital Signs: Vital signs: Vital Signs Temperature 98.2 F 10/21/20 16:32 Pulse Rate 84 10/21/20 22:54 Respiratory Rate 19 H 10/21/20 22:54 Blood Pressure 139/70 10/21/20 22:54 Pulse Oximetry 99 10/21/20 22:54 MDM - Weakness MDM Narrative: Medical decision making narrative: Patient presents here with generalized weakness along with some chest pain. Head CT and blood work here are normal. Is no signs of acute coronary syndrome. He states he still feeling quite weak will admit for observation. He has no signs of acute stroke and his symptoms have been going on for days and he is not a TPA candidate. Lab Data: Labs: Lab Results 10/21/20 10/21/20 10/21/20 Range/Units 19:16 19:16 19:16 WBC 7.9 (4.0-10.0) 10^3/ uL RBC 3.07 L (4.1-5.3) 10^6/u L Hgb 10.8 L (11.7-16.6) g/dL Hct 33.0 L (42.0-52.0) % MCV 107.5 H (80-94) fL MCH 35.2 H (28.0-34.0) pg MCHC 32.7 (30.0-36.0) g/dL RDW 13.7 (12.1-15.1) % Plt Count 127 L (130-400) 10^3/c mm MPV 10.1 (7.4-10.4) fL Neut % (Auto) 50.7 % Lymph % (Auto) 33.2 % Mccone % (Auto) 12.2 % Eos % (Auto) 2.0 % Baso % (Auto) 1.1 % Neut # (Auto) 4.01 (1.8-7.7) 10^3/u L Lymph # (Auto) 2.6 (0.8-4.8) 10^3/u L Mccone # (Auto) 1.0 H (0.2-0.9) 10^3/u L Eos # (Auto) 0.2 (0.0-0.8) 10^3/u L Baso # (Auto) 0.1 (0.0-0.1) 10^3/u L Nucleated RBC % (a uto) 0 % Nucleated RBCs # 0.0 /100WBC Sodium 133 L (136-145) mmol/L Potassium 3.8 (3.5-5.1) mmol/L Chloride 97 L (98-107) mmol/L Carbon Dioxide 30 H (22-29) mmol/L Anion Gap 9.8 (5-19) BUN 20 (8-23) mg/dL Creatinine 1.2 (0.7-1.2) mg/dL GFR Calculation Not Reportable Glucose 121 H (65-115) mg/dL Calculated Osmolal ity 280 L (285-295) mOsm/k g Lactic Acid 1.8 (0.5-2.2) mmol/L Calcium 7.7 L (8.5-10.5) mg/dL Total Bilirubin 3.4 H (0.15-1.2) mg/dL AST 78 H (0-40) U/L ALT 34 (0-41) U/L Alkaline Phosphata se 127 (40-130) IU/L Troponin T Baselin e (0-15) ng/L Troponin T 120 Min [place] (0-15) ng/L Delta Troponin T (0-10) ABS# NT-Pro-B Natriuret Pep 262 H (0-125) pg/mL Total Protein 6.9 (6.6-8.7) g/dL Albumin 2.3 L (3.5-5.2) g/dL Globulin 4.6 (1.3-4.6) g/dL Urine Color (Yellow) Urine Appearance (CLEAR) Urine pH (5-7) Ur Specific Gravit y (1.005-1.030) Urine Protein (Negative) Urine Glucose (UA) (Normal) Urine Ketones (Negative) Urine Blood (Negative) Urine Nitrate (Negative) Urine Bilirubin (Negative) Urine Urobilinogen (Negative) mg/dL Ur Leukocyte Marcie ase (Negative) Urine RBC (0-2) /hpf Urine WBC (0-5) /hpf Ur Squamous Epith Cells (0-5) /hpf Amorphous Sediment Urine Bacteria (NONE) /hpf 10/21/20 10/21/20 10/21/20 Range/Units 19:16 21:13 22:52 WBC (4.0-10.0) 10^3/ uL RBC (4.1-5.3) 10^6/u L Hgb (11.7-16.6) g/dL Hct (42.0-52.0) % MCV (80-94) fL MCH (28.0-34.0) pg MCHC (30.0-36.0) g/dL RDW (12.1-15.1) % Plt Count (130-400) 10^3/c mm MPV (7.4-10.4) fL Neut % (Auto) % Lymph % (Auto) % Mccone % (Auto) % Eos % (Auto) % Baso % (Auto) % Neut # (Auto) (1.8-7.7) 10^3/u L Lymph # (Auto) (0.8-4.8) 10^3/u L Mccone # (Auto) (0.2-0.9) 10^3/u L Eos # (Auto) (0.0-0.8) 10^3/u L Baso # (Auto) (0.0-0.1) 10^3/u L Nucleated RBC % (a uto) % Nucleated RBCs # /100WBC Sodium (136-145) mmol/L Potassium (3.5-5.1) mmol/L Chloride (98-107) mmol/L Carbon Dioxide (22-29) mmol/L Anion Gap (5-19) BUN (8-23) mg/dL Creatinine (0.7-1.2) mg/dL GFR Calculation Glucose (65-115) mg/dL Calculated Osmolal ity (285-295) mOsm/k g Lactic Acid (0.5-2.2) mmol/L Calcium (8.5-10.5) mg/dL Total Bilirubin (0.15-1.2) mg/dL AST (0-40) U/L ALT (0-41) U/L Alkaline Phosphata se (40-130) IU/L Troponin T Baselin e 30 H (0-15) ng/L Troponin T 120 Min [place] 28.85 H (0-15) ng/L Delta Troponin T -1.15 L (0-10) ABS# NT-Pro-B Natriuret Pep (0-125) pg/mL Total Protein (6.6-8.7) g/dL Albumin (3.5-5.2) g/dL Globulin (1.3-4.6) g/dL Urine Color Yellow (Yellow) Urine Appearance Clear (CLEAR) Urine pH 5 (5-7) Ur Specific Gravit y 1.010 (1.005-1.030) Urine Protein Neg (Negative) Urine Glucose (UA) Norm (Normal) Urine Ketones 1+ H (Negative) Urine Blood 3+ H (Negative) Urine Nitrate Negative (Negative) Urine Bilirubin 1+ H (Negative) Urine Urobilinogen 1 H (Negative) mg/dL Ur Leukocyte Marcie ase 1+ H (Negative) Urine RBC 5-10 H (0-2) /hpf Urine WBC 25-40 H (0-5) /hpf Ur Squamous Epith Cells 0-4 H (0-5) /hpf Amorphous Sediment Not Reportable Urine Bacteria 2+ H (NONE) /hpf Imaging Data^: CT Head: Radiologist's impression: [place] [address] CT Scan Report Signed Patient: Blayne Martinez Unit #: [id number] : 1945 Age/Sex: 75 / M ADM Date: 10/21/20 Loc: ER Room/Bed: Attending Dr: Ordering Provider/Ordering MD: Maricarmen Rivera MD Date of Service: 10/21/20 Procedure(s): CT head wo con* [id number] Accession Number(s): [id number] Report Number: [id number] PROCEDURE INFORMATION: Exam: CT Head Without Contrast Exam date and time: 10/21/2020 8:14 PM Age: 75 years old Clinical indication: Dizziness and weakness, extremity; Bilateral TECHNIQUE: Imaging protocol: Computed tomography of the head without contrast. Total images: 207 Radiation optimization: All CT scans at this facility use at least one of these dose optimization techniques: automated exposure control; mA and/or kV adjustment per patient size (includes targeted exams where dose is matched to clinical indication); or iterative reconstruction. COMPARISON: CT head wo con* [id number] 12/31/2019 12:43 AM RADIATION DOSE METRICS: Total DLP (mGy-cm): 887.26 FINDINGS: Brain: No evidence of active or acute intracranial pathologic process, hemorrhage, or trauma. Mild atrophic changes not inconsistent with the patient's chronological age. No mass effect. No midline shift. Mild small vessel ischemic disease with senile periventricular leukomalacia. No visible dense MCA or insular ribbon sign. Cerebral ventricles: No ventriculomegaly. Bones/joints: Unremarkable. No acute fracture. Paranasal sinuses: Visualized sinuses are unremarkable. No fluid levels. Mastoid air cells: Visualized mastoid air cells are well aerated. Soft tissues: Unremarkable. CT/CT head wo con* [id number] IMPRESSION: No evidence of active or acute intracranial pathologic process, hemorrhage, or trauma. CXR: Radiologist's impression: [place] [address] [address] XRay Report Signed Patient: Blayne Martinez Unit #: [id number] : 1945 Age/Sex: 75 / M ADM Date: 10/21/20 Loc: ER Room/Bed: Attending Dr: Ordering Provider/Ordering MD: Michell Leach Date of Service: 10/21/20 Procedure(s): XR chest 1V portable [id number] Accession Number(s): [id number] Report Number: [id number] PROCEDURE INFORMATION: Exam: XR Chest Exam date and time: 10/21/2020 6:38 PM Age: 75 years old Clinical indication: Pain; Chest pressure; Additional info: Weakness, cp TECHNIQUE: Imaging protocol: XR of the chest. Views: 1 view. Total images: 1 COMPARISON: CR XR chest 1V portable [id number] 10/19/2020 5:58 AM FINDINGS: Lungs: No visible active interstitial or alveolar airspace disease. Pleural spaces: Unremarkable. No pleural effusion. No pneumothorax. Heart/Mediastinum: Cardiac structures and configuration with arteriosclerosis. Bones/joints: Unremarkable for age. XR/XR chest 1V portable [id number] IMPRESSION: Nonacute Discharge Plan Discharge Admit Provider: Paul Moeller Coding Level of Care Code ED Metal Model Maker for Chg Fwd Exam Comprehensive
[2020-10-21 21:34] LABS: Troponin 5 2HR 28.85 ng/L (0-15)
[2020-10-21 21:39] LABS: Troponin 5 2HR Delta -1.15 ABS# (0-10)
[2020-10-21 22:54] VITALS: BP 139/70; PULSE 84; RESP 19; O2SAT 99
[2020-10-21 23:05] LABS: Add Urine Culture? Yes; Add Urine Microscopic? YES; Bacteria Urine 2+ /hpf; Bilirubin Urine 1+ (Negative); Blood Urine 3+ (Negative); Glucose Urine UA Norm (Normal); Ketones Urine 1+ (Negative); Leukocyte Esterase Urine 1+ (Negative); Nitrate Urine Negative (Negative); Protein Urine Neg (Negative); Squamous Epithelial Cell Urine 0-4 /hpf (0-5); Urine Appearance Clear (CLEAR); Urine Color Yellow (Yellow); Urobilinogen Urine 1 mg/dL (Negative); WBC Urine 25-40 /hpf (0-5); pH Urine 5 (5-7)
--- NOTE | 2020-10-21 23:35 | PM.HP ---
Providers/Chief Complaint Primary Care Provider: Jessica Moreira MD Chief Complaint: GENERAL WEAKNESS, N/V History of Present Illness Blayne Martinez is a 75 year old male who has multiple comorbid conditions dementia, liver cirrhosis, hemochromatosis, portal hypertension, chronic thrombocytopenia, A. fib RVR on Eliquis, duodenal ulcer presented today with chief complaint of dizziness, confusion spells and right-sided chest discomfort. is at the bedside who is endorsing that she woke up this morning around 6 AM and found him on the couch, when she woke Mr. Martinez up, he could not recall how he transferred himself out of the bedroom to the living area. is endorsing that his confusion spells have been increasing for past few months, no recent fever, vomiting, excessive shortness of breath. She was taking his blood pressure today after every 4-5 hours, and brought him to the hospital when systolic blood pressure was 95mmhg. patient is complaining of dizziness which she is describing as lightheadedness and spinning of surrounding. He also noticed right-sided chest discomfort which he is describing as dull pain, does not get worse on deep breathing, not associated with fever, shortness of breath, diaphoresis, it does not radiate. He is endorsing history of ulcer and GI bleed in the past. Because of these concerns he was brought to the hospital for further evaluation. Diagnosis in the ER revealed normal hemodynamics, normal CBC hemoglobin 10.8, normal glucose, UA shows pyuria, 2+ bacteria, head CT and chest x-ray unremarkable he has a loop recorder for last 2 years Sinus rhythm, prolonged QTC, recently had a normal Lexiscan stress test Review of Systems Const: Reports: body aches, fatigue and malaise Eyes: Denies: change in vision ENMT: Denies: throat pain Card: Reports: chest pain, pre-syncope and dyspnea on exertion; Denies: irregular heart rhythm, edema, syncope or orthopnea Resp: Reports: dyspnea; Denies: productive cough or non-productive cough GI: Denies: abdominal pain, nausea, vomiting, diarrhea or constipation : Denies: flank pain Musc: Reports: muscle cramps; Denies: neck pain or joint warmth Skin/Breast: Reports: lesions Neuro: Reports: confusion; Denies: headache(s) Psych: Reports: memory loss; Denies: anxiety Endo: Denies: polyuria Shai/Lymph: Denies: easy bruising All/Imm: Denies: urticaria Medications/Allergies Home Medications Medication Instructions Recorded Confirmed Last Taken Type albuterol sulfate 90 mcg/actuation 2 puff INHALATION Q6H PRN 06/17/19 10/21/20 Unknown History aerosol inhaler pantoprazole 40 mg tablet,delayed 40 mg PO DAILY@08 tab 06/17/19 10/21/20 10/21/20 History release levetiracetam 750 mg tablet 750 mg PO BID@08,17 06/18/19 10/21/20 10/21/20 History pravastatin 20 mg tablet 10 mg PO DAILY@17 tab 06/18/19 10/21/20 10/20/20 History folic acid 1 mg PO DAILY@08 12/31/19 10/21/20 10/21/20 History apixaban 5 mg tablet 2.5 mg PO BID@08,17 tab 04/20/20 10/21/20 10/21/20 History cholecalciferol (vitamin D3) 3,000 unit PO DAILY@08 08/16/20 10/21/20 10/21/20 History [Vitamin D3] lactulose 45 ml PO QID 08/16/20 10/21/20 10/21/20 History spironolactone 25 mg PO DAILY@08 08/16/20 10/21/20 10/21/20 History furosemide 80 mg PO BID@08,14 10 Days #0 tab 08/19/20 10/21/20 10/21/20 Rx cyclobenzaprine 5 mg tablet 5 mg PO BID PRN tab 08/26/20 10/21/20 Unknown History potassium chloride 10 mEq 20 meq PO DAILY@0800 tab 10/09/20 10/21/20 10/21/20 History tablet,extended release Xifaxan 550 mg PO BID@0800,1700 10/21/20 10/21/20 10/21/20 History ciprofloxacin HCl 500 mg PO BID@0800,1700 10/21/20 10/21/20 10/21/20 History Allergies Allergy/AdvReac Type Severity Reaction Status Date / Time No Known Allergies Allergy Verified 10/21/20 16:43 PFSH Acute PFSH: Medical History (Updated 10/22/20 @ 03:04 by Paul Moeller MD) AAA (abdominal aortic aneurysm) Bfaml-[id number]-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 Atrial fibrillation On Eliquis BPH (benign prostatic hyperplasia) Carotid artery stenosis Diverticulosis Duodenal ulcer Gastritis Hemochromatosis Hemochromatosis Hiatal hernia History of colon polyps Follow-up colonoscopy in 2023 HTN (hypertension) Hyperlipidemia Internal hemorrhoids Liver, cirrhosis, portal Portal hypertension S/P ORIF (open reduction internal fixation) fracture RIGHT HIP Status post placement of implantable loop recorder TIA (transient ischemic attack) UTI (urinary tract infection) Surgical History History of cystoscopy History of esophagogastroduodenoscopy (EGD) History of vasectomy S/P discectomy Status post colonoscopy with polypectomy Family History Mother Stroke Brother Qumja-[id number]-ehlypuientt deficiency Denies family history of Anesthesia complication Bleeding disorder Social History Smoking and tobacco status: never smoked Alcohol intake: never Household members: spouse Marital status: Current occupational status: retired Vitals/I&O/Wt Last Vital Signs Temp 98.2 F 10/21/20 16:32 Pulse 84 10/21/20 22:54 Resp 19 H 10/21/20 22:54 BP 139/70 10/21/20 22:54 Pulse Ox 99 10/21/20 22:54 Weight last 48 hrs Weight 105.596 kg Physical Exam Narrative: EXAM NARRATIVE: Pleasant elderly male Who was sitting comfortably in his bed Saturating well on room air, with normal hemodynamics No signs of hepatic encephalopathy he was awake alert oriented x3 no neurological deficits S1, S2 systolic murmur Abdomen soft central obesity mild ascites Lower extremity no active edema gangrene or ulcer Appropriate mood and affect at the bedside Patient has no joint swelling or signs of cellulitis EOMI, PERRLA Bilateral breath sounds no audible stridor or wheezing Data : 10/21/20 19:16 10/21/20 19:16 A&P Assessment and plan (1) Generalized weakness: Status: Acute (2) UTI (urinary tract infection): Status: Acute (3) Cognitive impairment: Status: Acute (4) Portal hypertension: Status: Acute (5) Hypotension: Status: Acute (6) Dizziness: Status: Acute Additional A&P Information Dizziness and generalized weakness Patient has been describing his dizziness as lightheadedness and room spinning noticed history of pressure was around systolic 95 mmHg Patient did experience right-sided chest discomfort which she is describing as dull pain No recent falls, no active chest pain shortness of breath abdominal pain He does take Lasix 80 mg twice a day along metolazone and spironolactone for portal hypertension, his last dose of metolazone was discontinued yesterday, I do believe his symptoms are related to hypotension with underlying history of moderate aortic stenosis, EKG is not showing any ischemic or infarctive changes, troponin not significantly high Check ammonia level and TSH no active signs of hepatic encephalopathy PT evaluation in the morning Considering liver cirrhosis portal hypertension and abnormal UA I will go ahead and start him on ceftriaxone 1 g daily requested urine cultures I will reduce the dose of Lasix to 60 mg daily instead of 80 mg twice a day and continue spironolactone, discontinue metolazone Continue rifaximin and lactulose for now Chronic anemia: Stable A. fib without RVR: Continue metoprolol and low-dose Eliquis He has history of GI ulcers in the past, Eliquis dose was reduced by cardiology, recent stress test was unremarkable Goals of care discussed with the patient and his : Previous documentation revealed DNR and DNI status however patient is stating that he would like a trial of CPR or intubation but does not want to be on mechanical ventilator for prolonged period of time Cardiac diet Attestations Medical Necessity Statement*: Anticipating discharge in less than 48 hours overnight monitoring needed because of dizziness hypotension generalized weakness Time Spent in Patient Care: 35 minutes Coding Level of Care Code Acute Cytology Technologist for Chg Fwd Diagnoses Generalized weakness R53.1 UTI (urinary tract infection) N39.0 Cognitive impairment R41.89 Portal hypertension K76.6 Hypotension I95.9 Dizziness R42
[2020-10-22] VITALS (8 sets, daily range): BP systolic 100–150; BP diastolic 63–79; PULSE 78–91; RESP 16–18; TEMP 36.4–37.2; O2SAT 97–100
--- NOTE | 2020-10-22 00:27 | ECG_ITS ---
[facility] Test Date: 2020-10-22 Pat Name: Blayne Martinez Department: Room: 259 Gender: Male Shake Splitter: : 1945 Requested By: Michell Leach Order Number: [id number] Chas MD: Ender Krishnan M.D. Measurements Intervals [place] Rate: 81 P: 104 GA: 232 QRS: 59 QRSD: 96 T: 58 QT: 424 QTc: 495 Interpretive Statements SINUS RHYTHM WITH FIRST DEGREE AV BLOCK WITH OCCASIONAL SUPRAVENTRICULAR PREMATURE COMPLEXES PROLONGED QT INTERVAL Compared to ECG 10/19/2020 07:42:54 No significant changes Electronically Signed On 10-22-2020 19:33:25 CDT by Ender Krishnan M.D. [id number]
[2020-10-22 01:32] LABS: Troponin 5 6HR 28.77 ng/L (0-15)
[2020-10-22 01:33] LABS: Troponin 5 6HR Delta -1.23 ng/L (0-12)
[2020-10-22 06:02] LABS: Ammonia 59 umol/L (16-60)
[2020-10-22 06:04] LABS: Alanine Aminotransferase 28 U/L (0-41); Albumin Level 2.1 g/dL (3.5-5.2); Alkaline Phosphatase 108 IU/L (40-130); Anion Gap 6.7 (5-19); Aspartate Amino Transferase 69 U/L (0-40); Blood Urea Nitrogen 22 mg/dL (8-23); Calcium 7.7 mg/dL (8.5-10.5); Carbon Dioxide 31 mmol/L (22-29); Chloride 98 mmol/L (98-107); Glucose 112 mg/dL (65-115); Osmolality Calculated 278 mOsm/kg (285-295); Potassium 3.7 mmol/L (3.5-5.1); Sodium 132 mmol/L (136-145); Total Protein 6.1 g/dL (6.6-8.7)
[2020-10-22 06:15] LABS: Thyroid Stimulating Hormone 1.72 uIU/mL (0.27-4.20)
--- NOTE | 2020-10-22 06:56 | PC.NURSE ---
10/21/20202229 Assumed care of pt at this time. Pt is now preparing for admission. This RN called report to Pat[facility] on med/surg. Will take pt per stretcher to room 259 when this RN has a transport monitor available as pt has had + troponins, and intermittent chest pain. Currently, pt denies CP. VSS. 10/22/202044 Pt is resting quietly, denies CP. VSS. No portable monitor available for safe pt transport, as they are all in use. 10/22/2020144 Pt transported to 2nd floor for admission, on monitor accompanied by Nica AMATO.
[2020-10-22] MEDS: apixaban 5 mg Tablet 2.5 MG PO ×2 (08:52→18:40)
[2020-10-22] MEDS: cefTRIAXone 1,000 MG in sodium chloride 0.9% (plus) 50 ML 100 MG IV (08:53)
[2020-10-22] MEDS: folic acid 1 mg Tablet PO (08:53)
[2020-10-22] MEDS: potassium chloride ER 10 mEq Tablet 20 MEQ PO (08:53)
[2020-10-22] MEDS: FUROsemide 40 mg Tablet 60 MG PO (08:53)
[2020-10-22] MEDS: spironolactone 25 mg Tablet PO (08:54)
[2020-10-22] MEDS: pantoprazole DR 40 mg Tablet PO (08:54)
[2020-10-22] MEDS: lactulose oral liq 20 gm/30 mL UDC 30 GM PO ×4 (08:58→21:42)
--- NOTE | 2020-10-22 11:00 | USCV_ITS ---
Juan Blayne Age: 75 Gender: M : 1945 Exam Date: 10/22/2020 12:46 Ordering Phys: Dandy Santizo MD Technologist: Ashley Rios Exam Location: [facility] [place] Indication: ASSESS FOR CHANGE HISTORY: Diameter (cm) AP x Transverse x Length Velocity (cm/s) Waveform Prox Aorta: 2.10 x 2.13 x 107.70 Mid Aorta: 2.74 x 3.42 x 111.70 Distal Aorta: 1.77 x 1.93 x 102.30 Right Iliac Prox: 0.93 x 1.10 x 130.30 Left Iliac Prox: 0.87 x 1.06 x 159.40 Stent Prox Landing x x Aneurysmal Sac Max x x Lt Lat Sac Dim Rt Lat Sac Dim Stent Dist Landing x x Right Iliac Stent x x Left Iliac Stent x x Right Renal Art Left Renal Art FINDINGS: Ectatic abdominal aorta with evidence of atherosclerotic plaque noted. Mild dilatation of the abdominal aorta, maximum diameter of 3.4 cm. There is no evidence of a right common iliac artery aneurysm. There is no evidence of a left common iliac artery aneurysm. CONCLUSIONS Mild AAA, diameter of 3.[address] Consuelo Danielle DO (Electronically Signed) Final Date: 22 Oct 2020 13:57 S
--- NOTE | 2020-10-22 11:15 | US_ITS ---
WS: [id number] Abdominal ultrasound, limited. History: Evaluate for ascites. Comparison: None. All 4 quadrants are imaged by ultrasound to evaluate for ascites. There is no peritoneal fluid identi fied. US/US abdomen limited [id number] IMPRESSION: No peritoneal ascites.
--- NOTE | 2020-10-22 11:33 | PC.CHAP ---
Pastoral Care Encounter/Spiritual Assessment Type of Contact [] Declined boiler house supervisor visit [] Patient/Family/Request visit [] Outpatient visit [] Follow-up visit [] Physician referral [] Code/Alert [x] Routine visit [] Staff referral [] Actively dying [] Patient sleeping [] Family support [] [] Out of room [] Palliative care [x] [x] Receiving care in room [] Pre-surgical visit [] Trauma [] Long length of stay [] ICU visit [] Other: Relational/Emotional Strength [x] Patient feels connected with others/family/visitors/staff [] Distress [] Loneliness/isolation [] Abandonment Spirituality of Patient [x] Person of Shahnaz [] Attends Taoist of their Shahnaz [x] Believes in Prayer [] Reads Bible or Lutheran materials [] There are Spiritual issues to be addressed Plastics Nurse Interventions [x] Prayer [x] Active listening [x] Non-anxious presence [x] Spiritual/emotional support [] Crisis/trauma care [x] Spiritual counseling [x] Bereavement support [] Provided bereavement packet [] Provided Bible/devotional materials [] Provided toy/stuffed animal, coloring book to patient or family member [] Provided Communion [] Anointing/[place] [] Salvation [x] Completed spiritual assessment [] Other: Impact on Illness or Injury [] Angry [] Fearful [x] Anxious [] Often cries [] Exhaustion [x] Unable to work [] Unable to attend uatsdin [] Unable to walk/stand [] Unable to read [] Unable to drive [] Unable to eat/drink [] Unable to sleep [] Unable to be with family [] Patient intubated [] Other: Summary he througt hes was going to says he ready, concerned for family, feeling better to day, doesn;t know about his health, waiting on doctors report, has a good attitude Time spent with patient 10 mins
--- NOTE | 2020-10-22 11:34 | NM_ITS ---
WS: [id number] NUCLEAR MEDICINE VENTILATION/PERFUSION LUNG SCAN HISTORY: chest pain, [place] COMPARISON: Chest radiograph 10/21/2020 TECHNIQUE: Ventilation: 32.4 mCi of Technetium 99 DTPA aerosol inhaled. Perfusion: 4.9 mCi of technetium 99m MAA IV. Matched mild wedge-shaped defect in the anterior RIGHT lung. No unmatched pulmonary defects. Slight d eposition of the radionuclide centrally on the ventilatory portion of the exam. NM/NM pul vent and perfus* [id number] IMPRESSION: Low probability pulmonary embolism.
[2020-10-22 17:33] LABS: Lactate Dehydrogenase 305 U/L (135-225)
--- NOTE | 2020-10-22 20:38 | PM.PN ---
Subjective Subjective: Interval history: Worked with physical therapy today and walked a good distance, although got fatigued at the end requesting be put in bed. Has had no chest pain or pressure today. No shortness of breath. Has had no confusional episodes. states knows he is little bit more yellow than usual. Vitals/I&O/Wt Last Vital Signs Temp 98.9 F 10/22/20 19:55 Pulse 91 10/22/20 19:55 Resp 18 10/22/20 19:55 BP 141/75 10/22/20 19:55 Pulse Ox 97 10/22/20 19:55 10/22/20 10/22/20 10/22/20 06:59 14:59 22:59 Intake Total 770 / 770 360 / 1130 Output Total 330 / 330 Balance -330 / -330 770 / 770 360 / 1130 Weight last 48 hrs Weight 105.596 kg Physical Exam Narrative: EXAM NARRATIVE: at bedside. Const: COMMON NORMALS: no acute distress and patient oriented x3 GENERAL APPEARANCE: frail appearing HENMT: COMMON NORMALS: oropharynx normal Neck/C-Spine: COMMON NORMALS: no JVD Resp: COMMON NORMALS: normal respiratory effort and clear to auscultation bilaterally AUSCULTATION: clear to auscultation bilaterally Cardio: COMMON NORMALS: no JVD, regular rhythm, S1 normal heart sound present, S2 normal heart sound present and No murmurs present (Cardio) RHYTHM: regular rhythm HEART SOUNDS: S1 normal heart sound present and S2 normal heart sound present GI: COMMON NORMALS: Normal to inspection, nondistended, normoactive bowel sounds present, Soft to palpation and non-tender PALPATION: Yes Soft to palpation Extremity: COMMON NORMALS: no joint enlargement and no pedal edema Neuro: COMMON NORMALS: patient oriented x3 and moves all extremities Skin: COMMON NORMALS: no rashes or lesions noted GENERAL SKIN EXAM: no rashes or lesions noted Data : 10/21/20 19:16 10/22/20 05:25 A&P Assessment and plan (1) Orthostatic hypotension: He did well through most part of the day today, however, got very fatigued after ambulation, worked pretty well with physical therapy. We assessed orthostatic, and he is quite significantly orthostatic with decrease of 25 points on systolic blood pressure with standing. Discussed with him and his . He has been diuresed quite extensively recently. Metolazone has been discontinued. Lasix dose is currently reduced. Discussed we will going give him albumin due to risk of fluid overload, cirrhosis. Reassess blood pressure in the morning. With also underlying aortic stenosis he is at risk of syncope, falls. Status: Acute (2) Hyperbilirubinemia: noticed that he is somewhat jaundiced appearing, although this does not appear to be obvious. Has worsening hyperbilirubinemia, today bilirubin up to 4. Chronic hyperbilirubinemia, however, this is worse than usual. Assessing LDH, haptoglobin, there is possibility of hemolysis. Appears direct and indirect portions of bilirubin elevated. Possibility of sepsis considered, although does not appear to be in sepsis at this time. Receiving treatment for underlying UTI. Requesting peripheral smear. Check reticulocyte count. Will request Artur. Has had hepatitis panel in August which was negative. Has chronic thrombocytopenia with consideration of possible ITP. Otherwise does not appear to have known autoimmune condition. Has liver cirrhosis of not entirely clear etiology. Reports history of iron overload, although per hematology appears hemochromatosis has been excluded. We will obtain hepatobiliary ultrasound. Status: Acute (3) Generalized weakness: Appears to be combination of orthostatic hypotension, UTI. Additional assessment of hyperbilirubinemia as above. Status: Acute (4) UTI (urinary tract infection): Continue Rocephin. Follow-up culture. Previously recurrent enterococcal infection. Would avoid quinolone given AAA. Status: Acute (5) Cognitive impairment: Possible developing dementia. Ammonia level is normal. Discussed with him and his , possibility of episode of delirium/confusion relating to UTI, possibly orthostatic symptoms, however, they report also more longstanding symptoms of progressive short-term memory decline. Discussed with them would benefit from neuropsychiatric assessment on outpatient basis with which they are in agreement. Status: Acute (6) Portal hypertension: No ascites. Reports underlying liver cirrhosis. Continue lactulose, rifaximin. Status: Acute (7) Hypotension: Status: Acute (8) Dizziness: Status: Acute Additional A&P Information AAA: 3.4 mm assessed by ultrasound A. fib without RVR: Continue metoprolol and low-dose Eliquis He has history of GI ulcers in the past, Eliquis dose was reduced by cardiology, recent stress test was unremarkable Attestations Medical Necessity Statement*: Admission of over 2 midnights is needed for assessment management of orthostatic hypotension limiting activity, rising hyperbilirubinemia in a gentleman with possible hemolysis, UTI, with underlying liver cirrhosis, aortic stenosis, ITP, and a number of additional comorbidities. Coding Level of Care Code Acute Trim Machine Operator for Chg Fwd Diagnoses Orthostatic hypotension I95.1 Hyperbilirubinemia E80.6 Generalized weakness R53.1 UTI (urinary tract infection) N39.0 Cognitive impairment R41.89 Portal hypertension K76.6 Hypotension I95.9 Dizziness R42
[2020-10-22 21:31] LABS: Reticulocyte % 4.3 % (0.5-2.0)
[2020-10-22 21:33] LABS: Basophils # 0.1 10^3/uL (0.0-0.1); Basophils % 1.2 %; Eosinophils # 0.1 10^3/uL (0.0-0.8); Eosinophils % 2.1 %; Hematocrit 29.6 % (42.0-52.0); Hemoglobin 9.5 g/dL (11.7-16.6); Lymphocytes # 2.1 10^3/uL (0.8-4.8); Lymphocytes % 31.2 %; Mean Corpuscular HGB Conc 32.1 g/dL (30.0-36.0); Mean Corpuscular Hemoglobin 35.2 pg (28.0-34.0); Mean Corpuscular Volume 109.6 fL (80-94); Mean Platelet Volume 11.4 fL (7.4-10.4); Monocytes % 14.1 %; Neutrophils # 3.44 10^3/uL (1.8-7.7); Neutrophils % 50.7 %; Nucleated Red Blood Cells % 0.4 %; Platelet Count 119 10^3/cmm (130-400); White Blood Count 6.8 10^3/uL (4.0-10.0)
[2020-10-22 22:05] LABS: LAB Peripheral Smear Sent for Review
[2020-10-23] VITALS (7 sets, daily range): BP systolic 120–152; BP diastolic 55–77; PULSE 83–105; RESP 16–18; TEMP 36.3–37.2; O2SAT 95–100
[2020-10-23 05:25] LABS: Alanine Aminotransferase 29 U/L (0-41); Albumin Level 2.1 g/dL (3.5-5.2); Alkaline Phosphatase 107 IU/L (40-130); Anion Gap 7.7 (5-19); Aspartate Amino Transferase 65 U/L (0-40); Blood Urea Nitrogen 23 mg/dL (8-23); Calcium 7.7 mg/dL (8.5-10.5); Carbon Dioxide 30 mmol/L (22-29); Chloride 99 mmol/L (98-107); Globulin 3.6 g/dL (1.3-4.6); Glucose 99 mg/dL (65-115); Osmolality Calculated 280 mOsm/kg (285-295); Potassium 3.7 mmol/L (3.5-5.1); Sodium 133 mmol/L (136-145); Total Bilirubin 2.5 mg/dL (0.15-1.2); Total Protein 5.7 g/dL (6.6-8.7)
[2020-10-23 06:28] LABS: Basophils # 0.1 10^3/uL (0.0-0.1); Eosinophils # 0.2 10^3/uL (0.0-0.8); Hematocrit 25.5 % (42.0-52.0); Hemoglobin 8.5 g/dL (11.7-16.6); Lymphocytes # 2.2 10^3/uL (0.8-4.8); Lymphocytes % 30.4 %; Mean Corpuscular HGB Conc 33.3 g/dL (30.0-36.0); Mean Corpuscular Hemoglobin 35.9 pg (28.0-34.0); Mean Corpuscular Volume 107.6 fL (80-94); Mean Platelet Volume 10.6 fL (7.4-10.4); Monocytes # 1.1 10^3/uL (0.2-0.9); Monocytes % 14.9 %; Neutrophils # 3.69 10^3/uL (1.8-7.7); Neutrophils % 50.2 %; Nucleated Red Blood Cells % 0 %; Platelet Count 109 10^3/cmm (130-400); Red Blood Count 2.37 10^6/uL (4.1-5.3); Red Cell Distribution Width 13.6 % (12.1-15.1); White Blood Count 7.3 10^3/uL (4.0-10.0)
--- NOTE | 2020-10-23 08:00 | US_ITS ---
WS: [id number] RIGHT UPPER QUADRANT ULTRASOUND HISTORY: increase in bilirubin - hepatobiliary US COMPARISON: None available. Liver: 14.1 cm in length. Low normal size. There is diffuse heterogeneity and surface irregularity an d nodularity. No discrete mass or bile duct dilatation. Portal vein is patent. Gallbladder: Normally distended gallbladder with no stones or wall thickening. CBD: 0.2 cm Pancreas: Normal size and echogenicity. Right kidney: 10.8 cm in length. Normal size and echogenicity. No hydronephrosis or mass. Aorta and IVC: Unremarkable abdominal aorta and IVC. No ascites. US/US abdomen limited [id number] IMPRESSION: 1. No bile duct dilatation. 2. Changes of cirrhosis.
[2020-10-23] MEDS: FUROsemide 40 mg Tablet 60 MG PO (09:03)
[2020-10-23] MEDS: spironolactone 25 mg Tablet PO (09:04)
[2020-10-23] MEDS: pantoprazole DR 40 mg Tablet PO (09:04)
[2020-10-23] MEDS: folic acid 1 mg Tablet PO (09:04)
[2020-10-23] MEDS: potassium chloride ER 10 mEq Tablet 20 MEQ PO (09:04)
[2020-10-23] MEDS: apixaban 5 mg Tablet 2.5 MG PO ×2 (09:05→18:30)
[2020-10-23] MEDS: lactulose oral liq 20 gm/30 mL UDC 30 GM PO ×4 (09:05→21:16)
[2020-10-23] MEDS: cefTRIAXone 1,000 MG in sodium chloride 0.9% (plus) 50 ML 100 MG IV (09:05)
[2020-10-23] MEDS: predniSONE 20 mg Tablet 100 MG PO (12:23)
--- NOTE | 2020-10-23 12:28 | PC.CHAP ---
Pastoral Care Encounter/Spiritual Assessment Type of Contact [] Declined principal consultant visit [] Patient/Family/Request visit [] Outpatient visit [] Follow-up visit [] Physician referral [] Code/Alert [] Routine visit [] Staff referral [] Actively dying [] Patient sleeping [] Family support [] [] Out of room [] Palliative care [] [xx] Receiving care in room [] Pre-surgical visit [] Trauma [] Long length of stay [] ICU visit [] Other: Relational/Emotional Strength [] Patient feels connected with others/family/visitors/staff [] Distress [] Loneliness/isolation [] Abandonment Spirituality of Patient [] Person of Shahnaz [] Attends Jew of their Shahnaz [] Believes in Prayer [] Reads Bible or Samaritan materials [] There are Spiritual issues to be addressed Hot Kettle Tender Interventions [] Prayer [] Active listening [] Non-anxious presence [] Spiritual/emotional support [] Crisis/trauma care [] Spiritual counseling [] Bereavement support [] Provided bereavement packet [] Provided Bible/devotional materials [] Provided toy/stuffed animal, coloring book to patient or family member [] Provided Communion [] Anointing/[place] [] Salvation [] Completed spiritual assessment [] Other: Impact on Illness or Injury [] Angry [] Fearful [] Anxious [] Often cries [] Exhaustion [] Unable to work [] Unable to attend religion [] Unable to walk/stand [] Unable to read [] Unable to drive [] Unable to eat/drink [] Unable to sleep [] Unable to be with family [] Patient intubated [] Other: Summary Patient had just started lenghty physical therepy evaluation and first treatment. Follow up recommended Time spent with patient 2 minutes
[2020-10-23 12:55] LABS: Vitamin B12 790 pg/mL (232-1245)
[2020-10-23 13:02] LABS: Folate Level 16.5 ng/mL (4.5-32.2)
--- NOTE | 2020-10-23 14:25 | PM.PN ---
Subjective Subjective: Interval history: Worked with PT today better. Did not get quite as fatigued. Denies shortness of breath. Denies chest pain. Vitals/I&O/Wt Last Vital Signs Temp 97.5 F L 10/23/20 11:57 Pulse 88 10/23/20 11:57 Resp 16 10/23/20 11:57 BP 152/77 10/23/20 11:57 Pulse Ox 100 10/23/20 08:00 10/22/20 10/23/20 10/23/20 22:59 06:59 14:59 Intake Total 460 / 1230 290 / 290 Output Total 350 / 350 Balance 460 / 1230 -350 / 880 290 / 290 Weight last 48 hrs Weight 105.596 kg Physical Exam Narrative: EXAM NARRATIVE: sitting beside him. Const: COMMON NORMALS: no acute distress and patient oriented x3 GENERAL APPEARANCE: frail appearing HENMT: COMMON NORMALS: oropharynx normal Neck/C-Spine: COMMON NORMALS: no JVD Resp: COMMON NORMALS: normal respiratory effort and clear to auscultation bilaterally AUSCULTATION: clear to auscultation bilaterally Cardio: COMMON NORMALS: no JVD, regular rhythm, S1 normal heart sound present, S2 normal heart sound present and No murmurs present (Cardio) RHYTHM: regular rhythm HEART SOUNDS: S1 normal heart sound present and S2 normal heart sound present GI: COMMON NORMALS: Normal to inspection, nondistended, normoactive bowel sounds present, Soft to palpation and non-tender PALPATION: Yes Soft to palpation Extremity: COMMON NORMALS: no joint enlargement and no pedal edema Neuro: COMMON NORMALS: patient oriented x3 and moves all extremities Skin: COMMON NORMALS: no rashes or lesions noted GENERAL SKIN EXAM: no rashes or lesions noted Data : 10/23/20 04:54 10/23/20 04:54 A&P Assessment and plan (1) Acute hemolytic anemia: Additional investigation of elevated bilirubin revealed elevated indirect bilirubin (and addition to a direct which is suspected chronic secondary to cirrhosis), elevated LDH at 305, haptoglobin low at 10 (although this may be low secondary to chronic liver disease), but also elevated reticulocyte at 4%. Peripheral smear does not show schistocytes. Shows some nucleated RBC. 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 Thrombocytopenia, anemia somewhat worse today, low platelets appear to be clumping on peripheral smear, and platelet level is not bad at this time. Some worsening of anemia. Requested for direct, indirect Artur. Previously negative hepatitis panel. Chronic thrombocytopenia of not entirely clear origin, low consideration of ITP. However, on peripheral smear also noted some crushed lymphocytes, no overt dysplastic cells, but perhaps slightly abnormal appearing monocytes. Some megaloblastic. Noted rouleaux. Recommendation for flow cytometry, requested. Discussed with him and his , peripheral smear abnormality and follow-up tests will need to be followed up again with hematology in office. Will check B12 level. Continue folic acid. Discussed with his calender roll operator - with concern regarding acute hemolytic anemia as per discussion with him and his are starting prednisone. Monitor in hospital. Reassess blood counts. PPI. Monitor for fluid overload with cirrhosis. Status: Acute (2) Orthostatic hypotension: Yesterday given a dose of albumin. Lasix dose had been tapered down to 60 mg daily. Continues on spironolactone. Today orthostatics negative. Worked better with therapy. Monitor for fluid overload with cirrhosis. Status: Acute (3) Hyperbilirubinemia: Hepatobiliary ultrasound without signs of cholestasis. Underlying liver cirrhosis with a degree of chronic hyperbilirubinemia, but worse currently. Acute hemolytic anemia as above. Status: Acute (4) Generalized weakness: Today better. Appears to be combination of orthostatic hypotension, UTI. Additional assessment of hyperbilirubinemia as above. Status: Acute (5) UTI (urinary tract infection): Enterococcus species. Change antibiotic to ampicillin. Follow-up culture. Previously recurrent enterococcal infection. Would avoid quinolone given AAA. Status: Acute (6) Cognitive impairment: Possible developing dementia. Ammonia level is normal. Discussed with him and his , possibility of episode of delirium/confusion relating to UTI, possibly orthostatic symptoms, however, they report also more longstanding symptoms of progressive short-term memory decline. Discussed with them would benefit from neuropsychiatric assessment on outpatient basis with which they are in agreement. Status: Acute (7) Portal hypertension: No ascites. Reports underlying liver cirrhosis. Continue lactulose, rifaximin. Status: Acute (8) Hypotension: Status: Acute (9) Dizziness: Status: Acute Additional A&P Information AAA: 3.4 mm assessed by ultrasound A. fib without RVR: Continue metoprolol and low-dose Eliquis He has history of GI ulcers in the past, Eliquis dose was reduced by cardiology, recent stress test was unremarkable Attestations Medical Necessity Statement*: Continue admission for assessment of management of acute hemolytic anemia. Coding Level of Care Code Acute Global Supply Chain Director for Chg Fwd Exam Comprehensive Diagnoses Acute hemolytic anemia D59.9 Orthostatic hypotension I95.1 Hyperbilirubinemia E80.6 Generalized weakness R53.1 UTI (urinary tract infection) N39.0 Cognitive impairment R41.89 Portal hypertension K76.6 Hypotension I95.9 Dizziness R42
[2020-10-23] MEDS: ampicillin 1,000 MG in sodium chloride 0.9% (plus) 50 ML 100 MG IV ×2 (16:07→23:24)
[2020-10-24] VITALS (7 sets, daily range): BP systolic 117–147; BP diastolic 68–79; PULSE 85–100; RESP 18–19; TEMP 36.6–37.1; O2SAT 96–99
[2020-10-24] MEDS: ampicillin 1,000 MG in sodium chloride 0.9% (plus) 50 ML 100 MG IV ×4 (04:12→21:56)
[2020-10-24 05:03] LABS: Basophils % 0.1 %; Hemoglobin 8.9 g/dL (11.7-16.6); Lymphocytes % 12.6 %; Mean Corpuscular Hemoglobin 35.3 pg (28.0-34.0); Mean Corpuscular Volume 107.1 fL (80-94); Monocytes # 0.4 10^3/uL (0.2-0.9); Monocytes % 4.5 %; Neutrophils # 6.75 10^3/uL (1.8-7.7); Neutrophils % 81.7 %; Nucleated Red Blood Cells % 0 %; Platelet Count 111 10^3/cmm (130-400); Red Blood Count 2.52 10^6/uL (4.1-5.3); Red Cell Distribution Width 13.4 % (12.1-15.1); White Blood Count 8.3 10^3/uL (4.0-10.0)
[2020-10-24 05:25] LABS: Alanine Aminotransferase 32 U/L (0-41); Albumin Level 2.2 g/dL (3.5-5.2); Alkaline Phosphatase 106 IU/L (40-130); Anion Gap 11.5 (5-19); Aspartate Amino Transferase 72 U/L (0-40); Blood Urea Nitrogen 24 mg/dL (8-23); Calcium 7.7 mg/dL (8.5-10.5); Carbon Dioxide 27 mmol/L (22-29); Chloride 99 mmol/L (98-107); Globulin 3.9 g/dL (1.3-4.6); Glucose 150 mg/dL (65-115); Osmolality Calculated 283 mOsm/kg (285-295); Potassium 4.5 mmol/L (3.5-5.1); Sodium 133 mmol/L (136-145); Total Bilirubin 2.2 mg/dL (0.15-1.2); Total Protein 6.1 g/dL (6.6-8.7)
--- NOTE | 2020-10-24 05:38 | PC.NURSE ---
SHIFT SUMMARY Has had a good night. Very pleasant. Says is feeling better and stronger. Ambulates to bathroom with nurse and walker. Has denied pain. Receiving IV antibiotics
[2020-10-24] MEDS: potassium chloride ER 10 mEq Tablet 20 MEQ PO (09:22)
[2020-10-24] MEDS: apixaban 5 mg Tablet 2.5 MG PO ×2 (09:22→16:45)
[2020-10-24] MEDS: folic acid 1 mg Tablet PO (09:22)
[2020-10-24] MEDS: FUROsemide 40 mg Tablet 60 MG PO (09:22)
[2020-10-24] MEDS: spironolactone 25 mg Tablet PO (09:22)
[2020-10-24] MEDS: pantoprazole DR 40 mg Tablet PO (09:22)
[2020-10-24] MEDS: lactulose oral liq 20 gm/30 mL UDC 30 GM PO ×4 (09:23→20:25)
[2020-10-24] MEDS: predniSONE 20 mg Tablet 100 MG PO (09:23)
--- NOTE | 2020-10-24 14:26 | PC.NUTR ---
Nutrition assessment completed for MST score of 4. Pt states the doctor told him to limit his protein. Unclear which MD. Spoke with Dr. Santizo again who stated unsure about protein restriction but does need iron restriction. Provided pt with lists of iron sources and protein sources, as well as [employer] website and encouraged to clarify protein/iron goals with MD. Encouraged balanced diet with limited Na intake.
--- NOTE | 2020-10-24 20:52 | PM.PN ---
Subjective Subjective: Interval history: Today he is feeling stronger. Worked better with PT. Discussed with him counts appear to be stabilizing. Bilirubin trending down. He denies pain or discomfort at this time. Denies trouble breathing. Vitals/I&O/Wt Last Vital Signs Temp 97.8 F 10/24/20 20:00 Pulse 100 10/24/20 20:00 Resp 18 10/24/20 20:00 BP 147/79 10/24/20 20:00 Pulse Ox 99 10/24/20 20:00 10/24/20 10/24/20 10/24/20 06:59 14:59 22:59 Intake Total 400 / 980 50 / 50 50 / 100 Balance 400 / 980 50 / 50 50 / 100 Physical Exam Const: COMMON NORMALS: no acute distress, patient oriented x3 and alert GENERAL APPEARANCE: cooperative, comfortable and frail appearing ORIENTATION/CONSCIOUSNESS: Yes awake OTHER: Pleasant, conversant. HENMT: COMMON NORMALS: oropharynx normal Neck/C-Spine: COMMON NORMALS: no JVD Resp: COMMON NORMALS: normal respiratory effort and clear to auscultation bilaterally AUSCULTATION: clear to auscultation bilaterally Cardio: COMMON NORMALS: no JVD, regular rhythm, S1 normal heart sound present, S2 normal heart sound present and No murmurs present (Cardio) RHYTHM: regular rhythm HEART SOUNDS: S1 normal heart sound present and S2 normal heart sound present GI: COMMON NORMALS: Normal to inspection, nondistended, normoactive bowel sounds present, Soft to palpation and non-tender PALPATION: Yes Soft to palpation Extremity: COMMON NORMALS: no joint enlargement and no pedal edema Neuro: COMMON NORMALS: patient oriented x3 and moves all extremities SENSORIUM/ORIENTATION: Yes alert Skin: COMMON NORMALS: no rashes or lesions noted GENERAL SKIN EXAM: no rashes or lesions noted Data : 10/24/20 04:15 10/24/20 04:15 Micro: Microbiology 10/21/20 22:52 Urine Culture - Final Urine,Clean Catch Enterococcus faecalis A&P Assessment and plan (1) Acute hemolytic anemia: Today he feels better. Blood counts appear to be leveling off. Mild improvement in hemoglobin, platelet level. T bili appears to be decreasing, down to 2.2. Continue prednisone as per discussion with assembly hand for 72 hours. Recheck blood counts. If continuing to improve, consideration may be given to return home and completion of the steroid regimen at home with follow-up with primary provider and hematology in office. B12 level is normal. Folic acid normal. Continue PPI. Continue folic acid. Follow-up additional studies including direct and indirect Artur, flow cytometry. Additional investigation of elevated bilirubin revealed elevated indirect bilirubin (and addition to a direct which is suspected chronic secondary to cirrhosis), elevated LDH at 305, haptoglobin low at 10 (although this may be low secondary to chronic liver disease), but also elevated reticulocyte at 4%. Peripheral smear does not show schistocytes. Shows some nucleated RBC. 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 Thrombocytopenia, anemia somewhat worse today, low platelets appear to be clumping on peripheral smear, and platelet level is not bad at this time. Some worsening of anemia. Requested for direct, indirect Artur. Previously negative hepatitis panel. Chronic thrombocytopenia of not entirely clear origin, low consideration of ITP. However, on peripheral smear also noted some crushed lymphocytes, no overt dysplastic cells, but perhaps slightly abnormal appearing monocytes. Some megaloblastic. Noted rouleaux. Recommendation for flow cytometry, requested. Discussed with him and his , peripheral smear abnormality and follow-up tests will need to be followed up again with hematology in office. Status: Acute (2) Orthostatic hypotension: Appears to have resolved. Overall he is feeling better. Working better with PT. Now starting to develop some mild edema in the ankles, 1+. I am not sure that INR is monitored correctly. Request for monitoring, and request daily weights. We will go up on Lasix dose to 80 mg daily. Continue spironolactone. Monitor for recurrence of orthostasis. Monitor for fluid overload with cirrhosis. Status: Acute (3) Hyperbilirubinemia: Improving. Hepatobiliary ultrasound without signs of cholestasis. Underlying liver cirrhosis with a degree of chronic hyperbilirubinemia, but worse currently. Acute hemolytic anemia as above. Status: Acute (4) Generalized weakness: Today better. Appears to be combination of orthostatic hypotension, UTI. Additional assessment of hyperbilirubinemia as above. Status: Acute (5) UTI (urinary tract infection): Enterococcus faecalis. Continue ampicillin. Would avoid quinolone given AAA. Status: Acute (6) Cognitive impairment: Possible developing dementia. Ammonia level is normal. Discussed with him and his , possibility of episode of delirium/confusion relating to UTI, possibly orthostatic symptoms, however, they report also more longstanding symptoms of progressive short-term memory decline. Discussed with them would benefit from neuropsychiatric assessment on outpatient basis with which they are in agreement. Status: Acute (7) Portal hypertension: No ascites. Reports underlying liver cirrhosis. Continue lactulose, rifaximin. Status: Acute (8) Hypotension: Status: Acute (9) Dizziness: Status: Acute Additional A&P Information AAA: 3.4 mm assessed by ultrasound A. fib without RVR: Continue metoprolol and low-dose Eliquis He has history of GI ulcers in the past, Eliquis dose was reduced by cardiology, recent stress test was unremarkable Attestations Medical Necessity Statement*: Continue admission for assessment of management of hemolytic anemia, optimization of diuretics in the setting of orthostasis and propensity to fluid overload with cirrhosis, severely orthostatic. Outpatient diuretic regimen. Coding Level of Care Code Acute Medical Operations Supervisor for Chg Fwd Diagnoses Acute hemolytic anemia D59.9 Orthostatic hypotension I95.1 Hyperbilirubinemia E80.6 Generalized weakness R53.1 UTI (urinary tract infection) N39.0 Cognitive impairment R41.89 Portal hypertension K76.6 Hypotension I95.9 Dizziness R42
[2020-10-25 03:54] VITALS: BP 139/80; PULSE 91; RESP 20; TEMP 36.7; O2SAT 100
[2020-10-25] MEDS: ampicillin 1,000 MG in sodium chloride 0.9% (plus) 50 ML 100 MG IV ×4 (04:28→22:55)
[2020-10-25 05:34] LABS: Basophils % 0.1 %; Eosinophils % 0.1 %; Hematocrit 27.6 % (42.0-52.0); Hemoglobin 8.9 g/dL (11.7-16.6); Lymphocytes % 10.9 %; Mean Corpuscular HGB Conc 32.2 g/dL (30.0-36.0); Mean Corpuscular Hemoglobin 35.2 pg (28.0-34.0); Mean Corpuscular Volume 109.1 fL (80-94); Mean Platelet Volume 10.6 fL (7.4-10.4); Monocytes # 1.8 10^3/uL (0.2-0.9); Monocytes % 9.8 %; Neutrophils # 14.14 10^3/uL (1.8-7.7); Neutrophils % 77.9 %; Nucleated Red Blood Cells % 0 %; Platelet Count 115 10^3/cmm (130-400); Red Blood Count 2.53 10^6/uL (4.1-5.3); Red Cell Distribution Width 13.9 % (12.1-15.1); White Blood Count 18.1 10^3/uL (4.0-10.0)
[2020-10-25 05:56] LABS: Alanine Aminotransferase 34 U/L (0-41); Albumin Level 2.4 g/dL (3.5-5.2); Alkaline Phosphatase 111 IU/L (40-130); Anion Gap 11.2 (5-19); Aspartate Amino Transferase 72 U/L (0-40); Blood Urea Nitrogen 28 mg/dL (8-23); Carbon Dioxide 27 mmol/L (22-29); Chloride 98 mmol/L (98-107); Creatinine Clr Calc Pharmacy 55.0879; Globulin 3.7 g/dL (1.3-4.6); Glucose 121 mg/dL (65-115); Osmolality Calculated 281 mOsm/kg (285-295); Potassium 4.2 mmol/L (3.5-5.1); Sodium 132 mmol/L (136-145); Total Bilirubin 2.2 mg/dL (0.15-1.2); Total Protein 6.1 g/dL (6.6-8.7)
[2020-10-25 08:00] VITALS: BP 139/91; PULSE 91; RESP 18; TEMP 36.8
--- NOTE | 2020-10-25 11:20 | PC.SOCIAL ---
IMM completed with pt on 10/25/20 @ 3532. Copy of rights given to pt.
[2020-10-25] MEDS: potassium chloride ER 10 mEq Tablet 20 MEQ PO (11:30)
[2020-10-25] MEDS: spironolactone 25 mg Tablet PO (11:30)
[2020-10-25] MEDS: folic acid 1 mg Tablet PO (11:30)
[2020-10-25] MEDS: predniSONE 20 mg Tablet 100 MG PO (11:30)
[2020-10-25] MEDS: pantoprazole DR 40 mg Tablet PO (11:30)
[2020-10-25] MEDS: lactulose oral liq 20 gm/30 mL UDC 30 GM PO ×3 (11:31→21:01)
[2020-10-25] MEDS: apixaban 5 mg Tablet 2.5 MG PO ×2 (11:31→16:18)
[2020-10-25 12:00] VITALS: BP 140/90; PULSE 82; RESP 18; TEMP 36.7
[2020-10-25 16:00] VITALS: BP 113/67; PULSE 99; RESP 18; TEMP 37.5; O2SAT 98
--- NOTE | 2020-10-25 19:49 | P.PN_ITS ---
Subjective Subjective: Interval history: He worked with physical therapy today and says received good feedback. He denies any pain or discomfort today. Overall he feels he is doing much better. Discussed with him stabilization of counts, however, also worsening of creatinine level which is new compared to his usual baseline. Vitals/I&O/Wt Last Vital Signs Temp 99.5 F 10/25/20 16:00 Pulse 99 10/25/20 16:00 Resp 18 10/25/20 16:00 BP 113/67 10/25/20 16:00 Pulse Ox 98 10/25/20 16:00 10/25/20 10/25/20 10/25/20 06:59 14:59 22:59 Intake Total 100 / 200 50 / 50 390 / 440 Output Total 800 / 800 Balance 100 / 200 -750 / -750 390 / -360 Weight last 48 hrs Weight 104.326 kg Physical Exam Narrative: EXAM NARRATIVE: Sitting up in chair. In good spirits. Const: COMMON NORMALS: no acute distress, patient oriented x3 and alert GENERAL APPEARANCE: cooperative, comfortable and frail appearing ORIENTATION/CONSCIOUSNESS: Yes awake OTHER: Pleasant, conversant. HENMT: COMMON NORMALS: oropharynx normal Neck/C-Spine: COMMON NORMALS: no JVD Resp: COMMON NORMALS: normal respiratory effort and clear to auscultation bilaterally AUSCULTATION: clear to auscultation bilaterally Cardio: COMMON NORMALS: no JVD, regular rhythm, S1 normal heart sound present, S2 normal heart sound present and No murmurs present (Cardio) RHYTHM: regular rhythm HEART SOUNDS: S1 normal heart sound present and S2 normal heart sound present GI: COMMON NORMALS: Normal to inspection, nondistended, normoactive bowel sounds present, Soft to palpation and non-tender PALPATION: Yes Soft to pa lpation Extremity: COMMON NORMALS: no joint enlargement and no pedal edema Neuro: COMMON NORMALS: patient oriented x3 and moves all extremities SENSORIUM/ORIENTATION: Yes alert Skin: COMMON NORMALS: no rashes or lesions noted GENERAL SKIN EXAM: no rashes or lesions noted Data : 10/25/20 04:55 10/25/20 04:55 Micro: Microbiology 10/21/20 22:52 Urine Culture - Final Urine,Clean Catch Enterococcus faecalis A&P Assessment and plan (1) RAÚL (acute kidney injury): Acute kidney injury, with noted creatinine up to 1.4 yesterday, up to 1.5 today. Hold additional Lasix for now. Requested additional albumin. We will check urine studies. Ultrasound of abdomen without hydronephrosis of the right kidney on 10/23. Recheck renal function. Check CK. Discharge for now deferred due to worsening renal function. In case continues to worsen, consider also possibility of hepatorenal syndrome. Status: Acute (2) Acute hemolytic anemia: Feels better. Counts have been leveling off. Improvement in hemoglobin, platelet level. Bilirubin appears stabilized around 2.2 which appears closer to his recent baseline. Third dose of prednisone today as per hematology recommendations. Hold further prednisone for now. Recheck counts. Recheck blood counts. If continuing to improve, consideration may be given to return home and completion of the steroid regimen at home with follow-up with primary provider and hematology in office. B12 level is normal. Folic acid normal. Continue PPI. Continue folic acid. Follow-up additional studies including direct and indirect Artur, flow cytometry. Additional investigation of elevation of bilirubin on presentation revealed elevated indirect bilirubin (and addition to a direct which is suspected chronic secondary to cirrhosis), elevated LDH at 305, haptoglobin low at 10 (although this may be low secondary to chronic liver disease), but also elevated reticulocyte at 4%. Peripheral smear does not show schistocytes. Shows some nucleated RBC. 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 Thrombocytopenia, anemia somewhat worse today, low platelets appear to be clumping on peripheral smear, and platelet level is not bad at this time. Some worsening of anemia. Requested for direct, indirect Artur. Previously negative hepatitis panel. Chronic thrombocytopenia of not entirely clear origin, low consideration of ITP. However, on peripheral smear also noted some crushed lymphocytes, no overt dysplastic cells, but perhaps slightly abnormal appearing monocytes. Some megaloblastic. Noted rouleaux. Recommendation for flow cytometry, requested. Discussed with him and his , peripheral smear abnormality and follow-up tests will need to be followed up again with hematology in office. Status: Acute (3) Orthostatic hypotension: Appears to have resolved. Overall he is feeling better. Working better with PT. Now starting to develop some mild edema in the ankles, 1+. Monitor for recurrence of orthostasis. Monitor for fluid overload with cirrhosis. Status: Acute (4) Hyperbilirubinemia: Stabilized, improved closer to his baseline with treatment of hemolytic anemia.. Hepatobiliary ultrasound without signs of cholestasis. Underlying liver cirrhosis with a degree of chronic hyperbilirubinemia, but worse currently. Acute hemolytic anemia as above. Status: Acute (5) Generalized weakness: Improved. Appears to be combination of orthostatic hypotension, UTI. Additional assessment of hyperbilirubinemia as above. Status: Acute (6) UTI (urinary tract infection): Enterococcus faecalis. Continue ampicillin. Would avoid quinolone given AAA. Status: Acute (7) Cognitive impairment: Possible developing dementia. Ammonia level is normal. Discussed with him and his , possibility of episode of delirium/confusion relating to UTI, possibly orthostatic symptoms, however, they report also more longstanding symptoms of progressive short-term memory decline. Discussed with them would benefit from neuropsychiatric assessment on outpatient basis with which they are in agreement. Status: Acute (8) Portal hypertension: No ascites. Reports underlying liver cirrhosis. Continue lactulose, rifaximin. Status: Acute (9) Hypotension: Status: Acute (10) Dizziness: Resolved. Status: Acute Additional A&P Information AAA: 3.4 mm assessed by ultrasound A. fib without RVR: Continue metoprolol and low-dose Eliquis He has history of GI ulcers in the past, Eliquis dose was reduced by cardiology, recent stress test was unremarkable Attestations Medical Necessity Statement*: Continue admission for additional assessment and management of acute kidney injury in a gentleman with acute hemolytic anemia, liver cirrhosis with propensity to fluid overload, with orthostatic hypotension on presentation and additional comorbidities as above. Coding Level of Care Code Acute [employer] Diagnoses RAÚL (acute kidney injury) N17.9 Acute hemolytic anemia D59.9 Orthostatic hypotension I95.1 Hyperbilirubinemia E80.6 Generalized weakness R53.1 UTI (urinary tract infection) N39.0 Cognitive impairment R41.89 Portal hypertension K76.6 Hypotension I95.9 Dizziness R42
[2020-10-25 19:54] VITALS: BP 129/71; PULSE 95; RESP 17; TEMP 37.1; O2SAT 99
[2020-10-25 20:36] LABS: Creatine Phosphokinase 58 U/L (39-308)
[2020-10-25 23:20] LABS: Urine Creatinine 180 mg/dL (39-259)
[2020-10-25 23:39] LABS: Add Urine Microscopic? YES; Bilirubin Urine Neg (Negative); Blood Urine 3+ (Negative); Glucose Urine UA Norm (Normal); Ketones Urine 1+ (Negative); Leukocyte Esterase Urine Trace (Negative); Nitrate Urine Negative (Negative); Protein Urine Neg (Negative); Urine Appearance Clear (CLEAR); Urine Color Yellow (Yellow); Urobilinogen Urine Norm (Negative); pH Urine 5 (5-7)
[2020-10-25 23:40] LABS: Add Urine Culture? Yes; Bacteria Urine TRACE /hpf; RBC Urine 15-25 /hpf (0-2); Squamous Epithelial Cell Urine 0-4 /hpf (0-5); WBC Urine 0-4 /hpf (0-5)
[2020-10-25 23:54] VITALS: BP 128/67; PULSE 94; RESP 16; TEMP 37.1; O2SAT 98
[2020-10-25 23:56] LABS: Urea Nitrogen,Urine Random 1113 mg/dL
[2020-10-26 04:00] VITALS: BP 127/64; PULSE 85; RESP 17; TEMP 36.9; O2SAT 97
[2020-10-26] MEDS: ampicillin 1,000 MG in sodium chloride 0.9% (plus) 50 ML 100 MG IV ×2 (04:36→10:51)
[2020-10-26 05:12] LABS: Basophils % 0.1 %; Hematocrit 24.3 % (42.0-52.0); Hemoglobin 7.9 g/dL (11.7-16.6); Lymphocytes # 1.3 10^3/uL (0.8-4.8); Lymphocytes % 12.3 %; Mean Corpuscular HGB Conc 32.5 g/dL (30.0-36.0); Mean Corpuscular Hemoglobin 35.9 pg (28.0-34.0); Mean Corpuscular Volume 110.5 fL (80-94); Mean Platelet Volume 11.7 fL (7.4-10.4); Monocytes % 9.9 %; Neutrophils # 7.94 10^3/uL (1.8-7.7); Neutrophils % 76.7 %; Nucleated Red Blood Cells % 0 %; Platelet Count 87 10^3/cmm (130-400); Red Cell Distribution Width 14.2 % (12.1-15.1); White Blood Count 10.3 10^3/uL (4.0-10.0)
[2020-10-26 05:37] LABS: Alanine Aminotransferase 31 U/L (0-41); Albumin Level 3.1 g/dL (3.5-5.2); Alkaline Phosphatase 88 IU/L (40-130); Anion Gap 10.3 (5-19); Aspartate Amino Transferase 59 U/L (0-40); Blood Urea Nitrogen 27 mg/dL (8-23); Calcium 7.9 mg/dL (8.5-10.5); Carbon Dioxide 26 mmol/L (22-29); Chloride 102 mmol/L (98-107); Globulin 3.1 g/dL (1.3-4.6); Glucose 116 mg/dL (65-115); Osmolality Calculated 284 mOsm/kg (285-295); Potassium 4.3 mmol/L (3.5-5.1); Sodium 134 mmol/L (136-145); Total Bilirubin 2.2 mg/dL (0.15-1.2); Total Protein 6.2 g/dL (6.6-8.7)
[2020-10-26 08:00] VITALS: BP 114/63; PULSE 85; RESP 18; TEMP 36.5; O2SAT 98
[2020-10-26] MEDS: apixaban 5 mg Tablet 2.5 MG PO (09:20)
[2020-10-26] MEDS: lactulose oral liq 20 gm/30 mL UDC 30 GM PO ×2 (09:21→12:51)
[2020-10-26] MEDS: folic acid 1 mg Tablet PO (09:21)
[2020-10-26] MEDS: spironolactone 25 mg Tablet PO (09:21)
[2020-10-26] MEDS: pantoprazole DR 40 mg Tablet PO (09:21)
[2020-10-26] MEDS: potassium chloride ER 10 mEq Tablet 20 MEQ PO (09:21)
[2020-10-26 11:46] VITALS: BP 126/70; PULSE 83; RESP 18; TEMP 36.7; O2SAT 100
[2020-10-26 12:32] LABS: Cytomegalovirus Antibody (IGG) >10.00 U/mL; Cytomegalovirus Antibody (IGM) <30.00 AU/mL
--- NOTE | 2020-10-26 14:38 | PM.DCS ---
Discharge Providers Date of Admission: 10/22/20 20:55 Date of Discharge: October 26, 2020 Attending Provider at Admission: Paul Moeller MD Attending Provider at Discharge: Norm Mc MD Primary Care Provider: Jessica Moreira MD Diagnoses at Discharge Discharge Diagnosis (1) RAÚL (acute kidney injury): Status: Acute (2) Acute hemolytic anemia: Status: Acute (3) Orthostatic hypotension: Status: Acute (4) Hyperbilirubinemia: Status: Acute (5) Generalized weakness: Status: Acute (6) UTI (urinary tract infection): Status: Acute (7) Cognitive impairment: Status: Acute (8) Portal hypertension: Status: Acute (9) Hypotension: Status: Acute (10) Dizziness: Status: Acute Reason for Visit Reason for Visit: GENERAL WEAKNESS, N/V Hospital Course Hospital Course Blayne Martinez is a 75 year old male who has multiple comorbid conditions dementia, liver cirrhosis, hemochromatosis, portal hypertension, chronic thrombocytopenia, A. fib RVR on Eliquis, moderate aortic stenosis duodenal ulcer presented today with chief complaint of dizziness, confusion spells and right-sided chest discomfort. He presented to hospital on October 21 due to complaint of dizziness. On admission he is orthostatic as well. His diuretics were withheld and he was given albumin challenge. Fluids were avoided because of high probability of patient going to fluid overload and component of anasarca as well. Eventually started on low-dose diuretic to which he responded well. During hospitalization he was also found to have hyperbilirubinemia. 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 Patient's care discussed with oncologist/Dr. Shukla who knows patient from before as his primary oncologist for thrombocytopenia. Patient was started on stress dose steroids for 3 days which stabilized his bilirubinemia. Peripheral smear showed microcytosis. On peripheral smear there was also concern for possible home for CLL or MDS for which flow cytometry has been sent out. During hospitalization he also developed RAÚL which is most likely secondary to aggressive diuresis. His diuretic dose was further adjusted and his kidney functions showed improvement. On the day of discharge his hemoglobin was 7.9, creatinine was 1.3 from 8.9 and 1.5 respectively yesterday. His care was further discussed with oncologist. He has been discharged hemodynamically stable condition on very slow steroid taper with 80 mg for next 5 days followed by 60 mg for next 5 days advised to follow-up with oncology within next 1 week for further work-up. Patient's care has been discussed in detail with patient and at bedside and all the questions were answered. Physical Exam Narrative: EXAM NARRATIVE: Sitting up in chair. In good spirits. Const: COMMON NORMALS: no acute distress, patient oriented x3 and alert GENERAL APPEARANCE: cooperative, comfortable and frail appearing ORIENTATION/CONSCIOUSNESS: Yes awake OTHER: Pleasant, conversant. HENMT: COMMON NORMALS: oropharynx normal Neck/C-Spine: COMMON NORMALS: no JVD Resp: COMMON NORMALS: normal respiratory effort and clear to auscultation bilaterally AUSCULTATION: clear to auscultation bilaterally Cardio: COMMON NORMALS: no JVD, regular rhythm, S1 normal heart sound present, S2 normal heart sound present and No murmurs present (Cardio) RHYTHM: regular rhythm HEART SOUNDS: S1 normal heart sound present and S2 normal heart sound present GI: COMMON NORMALS: Normal to inspection, nondistended, normoactive bowel sounds present, Soft to palpation and non-tender PALPATION: Yes Soft to palpation Extremity: COMMON NORMALS: no joint enlargement and no pedal edema Neuro: COMMON NORMALS: patient oriented x3 and moves all extremities SENSORIUM/ORIENTATION: Yes alert Skin: COMMON NORMALS: no rashes or lesions noted GENERAL SKIN EXAM: no rashes or lesions noted Discharge Data Data Completed and Pending: Completed Studies During Hospitalization Category Date Time Status CT head wo con* 7 0450 Urgent Cat Scan 10/21/20 20:14 Completed XR chest 1V lee ble [id number] Urgent Exams 10/21/20 18:27 Completed NM pul vent and p erfus* [id number] Routi ne Nuc Med 10/22/20 11:34 Completed CV duplex aorta 9 [id number] Routine Ultrasound 10/22/20 11:00 Completed US abdomen limite d [id number] Routine Ultrasound 10/22/20 11:15 Completed US abdomen limite d [id number] Routine Ultrasound 10/23/20 08:00 Completed Pending at discharge Category Date Time Status JENY Screen w/ Ref norma Routine Lab 10/22/20 20:43 Received Complete Blood Co unt w/Auto AM LABS Lab 10/27/20 04:00 Ordered Complete Blood Co unt w/Auto AM LABS Lab 10/28/20 04:00 Ordered Comprehensive Met abolic Panel AM LA BS Lab 10/27/20 04:00 Ordered Comprehensive Met abolic Panel AM [facility] Lab 10/28/20 04:00 Ordered Leukemia/Lymphoma Evaluation Routin e Lab 10/23/20 04:54 Received Mitochondrial AB Screen Routine Lab 10/22/20 20:43 Received Smooth Muscle AB Screen w/Refl Rout ine Lab 10/22/20 20:43 Received Urine Culture Rou alfredo Lab 10/25/20 22:30 Received Labs from last 24 hours 10/26/20 10/26/20 10/25/20 04:15 04:15 22:30 WBC 10.3 H RBC 2.20 L Hgb 7.9 L Hct 24.3 L MCV 110.5 H MCH 35.9 H MCHC 32.5 RDW 14.2 Plt Count 87 L MPV 11.7 H Neut % (Auto) 76.7 Lymph % (Auto) 12.3 [place] % (Auto) 9.9 Eos % (Auto) 0.0 Baso % (Auto) 0.1 Neut # (Auto) 7.94 H Lymph # (Auto) 1.3 [place] # (Auto) 1.0 H Eos # (Auto) 0.0 Baso # (Auto) 0.0 Nucleated RBC % (a uto) 0 Nucleated RBCs # 0.0 Sodium 134 L Potassium 4.3 Chloride 102 Carbon Dioxide 26 Anion Gap 10.3 BUN 27 H Creatinine 1.3 H GFR Calculation Not Reportable Glucose 116 H Calculated Osmolal ity 284 L Calcium 7.9 L Total Bilirubin 2.2 H AST 59 H ALT 31 Alkaline Phosphata se 88 Creatine Kinase Total Protein 6.2 L Albumin 3.1 L Globulin 3.1 Urine Color Urine Appearance Urine pH Ur Specific Gravit y Urine Protein Urine Glucose (UA) Urine Ketones Urine Blood Urine Nitrate Urine Bilirubin Urine Urobilinogen Ur Leukocyte Marcie ase Urine RBC Urine WBC Ur Squamous Epith Cells Amorphous Sediment Urine Bacteria Hyaline Casts Ur Random Urea Nit rogn Urine Creatinine 180 CMV IgG Ab CMV IgM Ab 10/25/20 10/25/20 10/25/20 22:30 04:55 04:35 WBC RBC Hgb Hct MCV MCH MCHC RDW Plt Count MPV Neut % (Auto) Lymph % (Auto) [place] % (Auto) Eos % (Auto) Baso % (Auto) Neut # (Auto) Lymph # (Auto) [place] # (Auto) Eos # (Auto) Baso # (Auto) Nucleated RBC % (a uto) Nucleated RBCs # Sodium Potassium Chloride Carbon Dioxide Anion Gap BUN Creatinine GFR Calculation Glucose Calculated Osmolal ity Calcium Total Bilirubin AST ALT Alkaline Phosphata se Creatine Kinase 58 Total Protein Albumin Globulin Urine Color Yellow Urine Appearance Clear Urine pH 5 Ur Specific Gravit y 1.020 Urine Protein Neg Urine Glucose (UA) Norm Urine Ketones 1+ H Urine Blood 3+ H Urine Nitrate Negative Urine Bilirubin Neg Urine Urobilinogen Norm Ur Leukocyte Marcie ase Trace H Urine RBC 15-25 H Urine WBC 0-4 H Ur Squamous Epith Cells 0-4 H Amorphous Sediment Not Reportable Urine Bacteria Trace Hyaline Casts 10-15 H Ur Random Urea Nit rogn 1113 Urine Creatinine CMV IgG Ab >10.00 H CMV IgM Ab <30.00 Addt'l Data from Hospital Stay: Laboratory Results WBC 10.3 10^3/uL (4.0 -10.0) H 10/26/20 04:15 RBC 2.20 10^6/uL (4.1 -5.3) L 10/26/20 04:15 Hgb 7.9 g/dL (11.7-16 .6) L 10/26/20 04:15 Hct 24.3 % (42.0-52.0 ) L 10/26/20 04:15 MCV 110.5 fL (80-94) H 10/26/20 04:15 MCH 35.9 pg (28.0-34. 0) H 10/26/20 04:15 MCHC 32.5 g/dL (30.0-3 6.0) 10/26/20 04:15 RDW 14.2 % (12.1-15.1 ) 10/26/20 04:15 Plt Count 87 10^3/cmm (130- 400) L 10/26/20 04:15 MPV 11.7 fL (7.4-10.4 ) H 10/26/20 04:15 Neut % (Auto) 76.7 % 10/26/20 04:15 Lymph % (Auto) 12.3 % 10/26/20 04:15 [place] % (Auto) 9.9 % 10/26/20 04:15 Eos % (Auto) 0.0 % 10/26/20 04:15 Baso % (Auto) 0.1 % 10/26/20 04:15 Reticulocyte % (Au to) 4.3 % (0.5-2.0) H 10/22/20 05:25 Neut # (Auto) 7.94 10^3/uL (1.8 -7.7) H 10/26/20 04:15 Lymph # (Auto) 1.3 10^3/uL (0.8- 4.8) 10/26/20 04:15 [place] # (Auto) 1.0 10^3/uL (0.2- 0.9) H 10/26/20 04:15 Eos # (Auto) 0.0 10^3/uL (0.0- 0.8) 10/26/20 04:15 Baso # (Auto) 0.0 10^3/uL (0.0- 0.1) 10/26/20 04:15 Nucleated RBC % (a uto) 0 % 10/26/20 04:15 Nucleated RBCs # 0.0 /100WBC 10/26/20 04:15 Haptoglobin 10.0 mg/L (30-200 ) L 10/22/20 05:25 Sodium 134 mmol/L (136-1 45) L 10/26/20 04:15 Potassium 4.3 mmol/L (3.5-5 .1) 10/26/20 04:15 Chloride 102 mmol/L (98-10 7) 10/26/20 04:15 Carbon Dioxide 26 mmol/L (22-29) 10/26/20 04:15 Anion Gap 10.3 (5-19) 10/26/20 04:15 BUN 27 mg/dL (8-23) H 10/26/20 04:15 Creatinine 1.3 mg/dL (0.7-1. 2) H 10/26/20 04:15 GFR Calculation Not Reportable 10/26/20 04:15 Glucose 116 mg/dL (65-115 ) H 10/26/20 04:15 Calculated Osmolal ity 284 mOsm/kg (285- 295) L 10/26/20 04:15 Lactic Acid 1.8 mmol/L (0.5-2 .2) 10/21/20 19:16 Calcium 7.9 mg/dL (8.5-10 .5) L 10/26/20 04:15 Total Bilirubin 2.2 mg/dL (0.15-1 .2) H 10/26/20 04:15 Direct Bilirubin 1.40 mg/dL (0.00- 0.30) H 10/22/20 05:25 AST 59 U/L (0-40) H 10/26/20 04:15 ALT 31 U/L (0-41) 10/26/20 04:15 Alkaline Phosphata se 88 IU/L (40-130) 10/26/20 04:15 Ammonia 59 umol/L (16-60) 10/22/20 05:25 Lactate Dehydrogen ase 305 U/L (135-225) H 10/22/20 05:25 Creatine Kinase 58 U/L (39-308) 10/25/20 04:55 Troponin T Baselin e 30 ng/L (0-15) H 10/21/20 19:16 Troponin T 120 Min kenny 28.85 ng/L (0-15) H 10/21/20 21:13 Delta Troponin T -1.15 ABS# (0-10) L 10/21/20 21:13 Troponin T Hi Sens 6Hr 28.77 ng/L (0-15) H 10/22/20 01:01 Troponin T Hi Sens 6Hr Delta -1.23 ng/L (0-12) L 10/22/20 01:01 NT-Pro-B Natriuret Pep 262 pg/mL (0-125) H 10/21/20 19:16 Total Protein 6.2 g/dL (6.6-8.7 ) L 10/26/20 04:15 Albumin 3.1 g/dL (3.5-5.2 ) L 10/26/20 04:15 Globulin 3.1 g/dL (1.3-4.6 ) 10/26/20 04:15 Vitamin B12 790 pg/mL (232-12 45) 10/23/20 04:54 Folate 16.5 ng/mL (4.5-3 2.2) 10/23/20 04:54 TSH 1.72 uIU/mL (0.27 -4.20) 10/22/20 05:25 Urine Color Yellow (Yellow) 10/25/20 22:30 Urine Appearance Clear (CLEAR) 10/25/20 22:30 Urine pH 5 (5-7) 10/25/20 22:30 Ur Specific Gravit y 1.020 (1.005-1.0 30) 10/25/20 22:30 Urine Protein Neg (Negative) 10/25/20 22:30 Urine Glucose (UA) Norm (Normal) 10/25/20 22:30 Urine Ketones 1+ (Negative) H 10/25/20 22:30 Urine Blood 3+ (Negative) H 10/25/20 22:30 Urine Nitrate Negative (Negati ve) 10/25/20 22:30 Urine Bilirubin Neg (Negative) 10/25/20 22:30 Urine Urobilinogen Norm mg/dL (Negat stephanie) 10/25/20 22:30 Ur Leukocyte Marcie ase Trace (Negative) H 10/25/20 22:30 Urine RBC 15-25 /hpf (0-2) H 10/25/20 22:30 Urine WBC 0-4 /hpf (0-5) H 10/25/20 22:30 Ur Squamous Epith Cells 0-4 /hpf (0-5) H 10/25/20 22:30 Amorphous Sediment Not Reportable 10/25/20 22:30 Urine Bacteria Trace /hpf (NONE) 10/25/20 22:30 Hyaline Casts 10-15 /lpf H 10/25/20 22:30 Ur Random Urea Nit rogn 1113 mg/dL 10/25/20 22:30 Urine Creatinine 180 mg/dL (39-259 ) 10/25/20 22:30 CMV IgG Ab >10.00 U/mL H 10/25/20 04:35 CMV IgM Ab <30.00 AU/mL 10/25/20 04:35 Antibody Screen Negative 10/23/20 04:54 JANE, Poly Interpre t Negative 10/22/20 05:25 Impressions Chest X-Ray 10/21/20 18:27 IMPRESSION: Nonacute Head CT 10/21/20 20:14 IMPRESSION: No evidence of active or acute intracranial pathologic process, hemorrhage, or trauma. Radiation Dose CTDIVOL = (mGy): DLP = 887.26 (mGy-cm) Pulmonary Perfusion Imaging 10/22/20 11:34 IMPRESSION: Low probability pulmonary embolism. Abdomen Ultrasound 10/23/20 08:00 IMPRESSION: 1. No bile duct dilatation. 2. Changes of cirrhosis. Microbiology 10/21/20 22:52 Urine,Clean Catch Urine Culture - Final Enterococcus faecalis Vitals: Last Vital Signs Temp 98.0 F 10/26/20 11:46 Pulse 83 10/26/20 11:46 Resp 18 10/26/20 11:46 BP 126/70 10/26/20 11:46 Pulse Ox 100 10/26/20 11:46 Discharge Plan Discharge Patient Disposition: Home Condition: Stable Prescriptions: New prednisone 20 mg tablet See Taper mg PO DAILY Qty: 120 RF: 0 B cmplx 4-vit [id number]-zinc 1,750-60-1-12.5 divo-wk-af-mg tablet 1 tab PO DAILY Qty: 30 RF: 0 Continued levetiracetam 750 mg tablet 750 mg PO BID@ RF: 0 Eliquis 5 mg tablet 2.5 mg PO BID@ RF: 0 albuterol sulfate 90 mcg/actuation HFA aerosol inhaler 2 puff INHALATION Q6H PRN (Reason: Shortness Of Breath) RF: 0 pantoprazole 40 mg tablet,delayed release (DR/EC) 40 mg PO DAILY@08 RF: 0 pravastatin 20 mg tablet 10 mg PO DAILY@17 RF: 0 cyclobenzaprine 5 mg tablet 5 mg PO BID PRN (Reason: MUSCLE CRAMPS) RF: 0 potassium chloride 10 mEq tablet extended release 20 meq PO DAILY@0800 RF: 0 folic acid 1 mg Tablet 1 mg PO DAILY@08 RF: 0 lactulose 10 gram/15 mL solution 45 ml PO QID RF: 0 cholecalciferol (vitamin D3) [Vitamin D3] 25 mcg (1,000 unit) Tablet 3,000 unit PO DAILY@08 RF: 0 spironolactone 25 mg tablet 25 mg PO DAILY@08 RF: 0 Xifaxan 550 mg tablet 550 mg PO BID@0800,1700 RF: 0 Changed furosemide 40 mg tablet 40 mg PO BID@08,14 10 Days Qty: 0 RF: 0 Discontinued ciprofloxacin HCl 500 mg tablet 500 mg PO BID@0800,1700 RF: 0 Discharge Orders: Discharge Order (Routine); Ordered 10/26/20 Ordered By: Norm Mc Referrals: [facility] [Provider Group] - 2 weeks (Concern for dementia) Jessica Moreira MD [Primary Care Provider] - 10/30/20 9:30 am Fanta Shukla MD [Staff Physician] - 11/03/20 2:00 pm (APPOINTMENT FOR LABS AT 12:30 [employer] [facility]) Discharge Diet: Cardiac Discharge Activity: Increase activity as tolerated, Limit activity as instructed and As per PT/OT instructions Patient Instructions: Opioid Safety Activity Restrictions/Additional Instructions: Please be cautious with Flexeril as it may lead to change in mental status and make you confused. Please maintain orthostatic precautions, rise slowly from laying to sitting and sitting to standing. If you get lightheaded or dizzy, please sit down or lie down immediately. Please continue lactulose and rifaximin as previously. Adjust lactulose dose to target 2-3 soft bowel movements per day. This will help keep ammonia level down and avoid episodes of confusion. Follow up with from oncology within next 1 week for further work-up of autoimmune hemolysis. Discharge Attestations Time Spent in Discharge Care*: greater than 30 min Specific Discharge Activities: educating patient, educating and/or supporting family/caregiver, discussing with pcp/other providers, discussing with bottle caser/social workers/dc planners, documenting/other paperwork and evaluating patient/reviewing data Status at Discharge: Cognitive status at discharge: cognitively intact, Behavioral status at discharge: cooperative, Functional status at discharge: independent ambulation Overall status at discharge: patient is back to baseline Quality Metrics Clinical Quality Measures During this hospital stay, did patient experience: None Coding Level of Care Code Acute [facility] note Diagnoses RAÚL (acute kidney injury) N17.9 Acute hemolytic anemia D59.9 Orthostatic hypotension I95.1 Hyperbilirubinemia E80.6 Generalized weakness R53.1 UTI (urinary tract infection) N39.0 Cognitive impairment R41.89 Portal hypertension K76.6 Hypotension I95.9 Dizziness R42
[2020-10-26 15:53] LABS: Anti-Nuclear Antibody Screen NEGATIVE (NEGATIVE)
[2020-10-26 15:57] VITALS: BP 117/61; PULSE 86; RESP 18; TEMP 36.7; O2SAT 99
[2020-10-26 18:22] VITALS: BP 117/61; PULSE 86; RESP 18; TEMP 36.7; O2SAT 99
[2020-10-26 18:38] LABS: Smooth Muscle Ab Screen NEGATIVE (NEGATIVE)
== END 2020-10-26 16:45 | disposition home or self-care (01) | DRG 312 ==
LOC: ER 19:57 → MEDSURG 10-22 07:39
PROVIDERS: Internal Medicine; Physician Assistant; Admitting Provider Internal Medicine; Emergency Provider Emergency Medicine; PCP Family Medicine; Visit Provider Student in an Organized Health Care Education/Training Program
DX: I95.1 Orthostatic hypotension (principal); K76.6 Portal hypertension; N39.0 Urinary tract infection, site not specified; N17.9 Acute kidney failure, unspecified; D58.9 Hereditary hemolytic anemia, unspecified; F03.90 Unspecified dementia, unspecified severity, without behavioral disturbance, psychotic disturbance, mood disturbance, and anxiety; K74.60 Unspecified cirrhosis of liver; E83.119 Hemochromatosis, unspecified; D69.6 Thrombocytopenia, unspecified; I48.91 Unspecified atrial fibrillation; I71.4 Abdominal aortic aneurysm, without rupture; N40.0 Benign prostatic hyperplasia without lower urinary tract symptoms; I65.29 Occlusion and stenosis of unspecified carotid artery; K57.90 Diverticulosis of intestine, part unspecified, without perforation or abscess without bleeding; K44.9 Diaphragmatic hernia without obstruction or gangrene; Z86.010 Personal history of colon polyps; I10 Essential (primary) hypertension; E78.5 Hyperlipidemia, unspecified; Z87.440 Personal history of urinary (tract) infections; Z86.73 Personal history of transient ischemic attack (TIA), and cerebral infarction without residual deficits; Z79.01 Long term (current) use of anticoagulants; E80.6 Other disorders of bilirubin metabolism; Z87.11 Personal history of peptic ulcer disease; I35.0 Nonrheumatic aortic (valve) stenosis; Z66 Do not resuscitate
CPT/HCPCS: 36415; 70450; 71045; 76705; 78014; 80053; 80500; 81001; 82140; 82248; 82550; 82570; 82607; 82746; 83010; 83516; 83605; 83615; 83880; 84443; 84484; 84540; 85025; 85045; 86038; 86850; 86880; 87077; 87086; 87186; 88184; 88185; 93005; 93978; 97110; 97116; 97161; 97530; A9540; A9567; G0378; J0290; J0696; J7512; P9047

== ENCOUNTER 2020-11-03 12:22 | Outpatient (CLI) | payer OTHER, MEDICARE, SELFPAY ==
[2020-11-03 13:35] LABS: Basophils % 0.1 %; Eosinophils % 0.2 %; Hematocrit 24.5 % (42.0-52.0); Hemoglobin 7.9 g/dL (11.7-16.6); Lymphocytes # 0.7 10^3/uL (0.8-4.8); Lymphocytes % 5.9 %; Mean Corpuscular HGB Conc 32.2 g/dL (30.0-36.0); Mean Corpuscular Hemoglobin 34.8 pg (28.0-34.0); Mean Corpuscular Volume 107.9 fL (80-94); Mean Platelet Volume 10.3 fL (7.4-10.4); Monocytes # 1.2 10^3/uL (0.2-0.9); Monocytes % 9.3 %; Neutrophils # 10.34 10^3/uL (1.8-7.7); Neutrophils % 82.7 %; Nucleated Red Blood Cells % 0 %; Platelet Count 119 10^3/cmm (130-400); Red Blood Count 2.27 10^6/uL (4.1-5.3); Red Cell Distribution Width 15.6 % (12.1-15.1); White Blood Count 12.5 10^3/uL (4.0-10.0)
[2020-11-03 14:27] LABS: Ferritin 182 ng/mL (30-400)
[2020-11-03 17:49] LABS: Alanine Aminotransferase 59 U/L (0-41); Albumin Level 2.9 g/dL (3.5-5.2); Alkaline Phosphatase 99 IU/L (40-130); Aspartate Amino Transferase 79 U/L (0-40); Blood Urea Nitrogen 34 mg/dL (8-23); Calcium 7.9 mg/dL (8.5-10.5); Carbon Dioxide 22 mmol/L (22-29); Chloride 94 mmol/L (98-107); Globulin 3.3 g/dL (1.3-4.6); Glucose 109 mg/dL (65-115); Osmolality Calculated 266 mOsm/kg (285-295); Sodium 124 mmol/L (136-145); Total Protein 6.2 g/dL (6.6-8.7)
[2020-11-03 18:00] LABS: Anion Gap 13.5 (5-19); Potassium 5.5 mmol/L (3.5-5.1)
--- NOTE | 2020-11-04 17:17 | ONC FU_ITS ---
Dr. Shukla follow up note Patient: Blayne Martinez Unit #: [id number]: 1945 Dicatated By: Fanta Shukla M.D.Date of Visit:November 03, 2020 Onc Med Follow-up/Prog Note History of Present Illness: Mr. Blayne Martinez, is a 75-year-old gentleman with a history of iron overload but hemochromatosis was ruled out. And was treated with regular phlebotomies at [facility] due to elevated transaminases. 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 As per patient he was admitted to hospital in December 2018 with episode of upper GI bleeding requiring 3 units of blood transfusion and underwent EGD on December 22, 2018 which showed 2 cm duodenal ulcer in the posterior bulb with an adherent clot. He was also found to have known erosive antral gastropathy. Follow-up EGD done on January 29, 2019 showed complete healing of duodenal ulcer but continued to have non-erosive antral gastropathy. Patient also had colonoscopy done on January 29, 2019 which revealed 5 mm sessile descending colon tubular adenoma. And he was recommended follow-up colonoscopy in 5 years, in 2023. Patient underwent FibroScan on March 08, 2019 which showed CAP score of 297, which was indicative of moderate to severe steatosis. The median elastography measurement was 22.3K PA, which is indicating of advanced fibrosis with underlying liver cirrhosis, patient has been followed by [facility] in [place]. In October 2019 patient went to [facility] ER with headaches and MRI scan of the head was done which was unremarkable for intracranial bleed His lab work done on May 10, 2018 showed white blood count 5.5 hemoglobin 15.8 hematocrit 47.4 platelets 128,000 and follow-up labs done on October 03, 2018 showed platelet count 95,000 with a normal white blood count and hemoglobin on October 17, 2018 is platelet count was 104,000 on November 08, 2019, count was 98,000 and on February 06, 2020 platelet count dropped to 76,000 with normal hemoglobin. Patient denies any evidence of nosebleed or gum bleed or hematuria or recent episode of melena or hematochezia but patient is on Eliquis for atrial fibrillation and again as mentioned above history of duodenal ulcer but follow-up EGD done on January 2019 showed healing of duodenal ulcer. Patient has mild thrombocytopenia in 2017 and 19 now progressive but still with mild to moderate isolated thrombocytopenia. As per patient and his he was started on Keppra in October 2018 with questionable seizure but patient said he never had any seizure in the recent past. Patient had CT scan of abdomen pelvis done on October 27, 2019 which showed subtle nodularity of hepatic contour, suggestive of cirrhosis, spleen unremarkable no central lymphadenopathy Came for follow-up, complaining of generalized weakness and fatigue, lightheadedness dizziness and progressive lower extremity edema, progressive shortness of breath and mid chest heaviness/pain, as per patient he was recently admitted to hospital with similar complaints and confusion and at the time of admission he was orthostatic, patient was on Lasix 80 mg twice a day which was withheld and he was given albumin challenge and then patient was started on low-dose diuretic 40 mg Lasix p.o. twice a day and he did respond well and during hospitalization he was found to have hyperbilirubinemia his bilirubin was 2.2, direct bili was 1.4, there was a concern about autoimmune hemolytic anemia, patient was started on prednisone 1 mg/kg on tapering dose with that his hyperbilirubinemia stabilized and the peripheral blood smear shows macrocytosis, whole blood flow cytometry was sent out, and during hospitalization patient developed acute renal insufficiency probably due to aggressive diuresis, his diuretic dose was adjusted to 40 mg p.o. daily instead of 80 mg prior to the admission and at time of discharge his hemoglobin was 7.9, creatinine was 1.3 compared to 8.9 at the time of admission and patient was sent home on tapering dose of steroids 80 mg p.o. daily for 5 days after discharge., During hospitalization is lab work-up which include TSH was 1.72, B12 was 790 folate was 16.5, direct Artur test was negative, CMV IgG was more than 10, CMV IgM less than 30, AST 59, ALT 31, ammonia 59. Abdominal sonogram done on October 22, 2020 shows no bile duct dilatation, diffuse heterogenicity and surface irregularity and nodularity consistent with hepatic cirrhosis Medications: Albuterol Sulfate Aerosol Powder, Breath Activated Inhalation, Cyclobenzaprine HCl 1 Tablet (of 5 mg) Oral b.i.d., Eliquis 0.5 Tablet (of 5 mg) Oral b.i.d., Folic Acid 1 Tablet (of 1 mg) Oral daily, Furosemide 1 Tablet (of 40 mg) Oral daily, Klor-Con 10 1 Tablet (of 10 meq) Tablet, controlled release Oral daily, Lactulose 30 g (of 10 g) Pack Oral t.i.d., levETIRAcetam 1 Tablet (of 750 mg) Oral b.i.d., Metoprolol Succinate ER 12.5 mg (of 25 mg) Tablet SR 24 HR Oral daily, Pravastatin Sodium 1 Tablet (of 20 mg) Oral at bedtime, Vitamin D3 1 Tablet (of 3000 mg) Oral daily, Xifaxan 1 Tablet (of 550 mg) Oral b.i.d. Allergies: No Known Allergies. Review of Systems: Review of Systems is not available for this patient. Vital Signs: Performed on November 03, 2020 13:34 Height - 72.00 in Weight - 273 lbs (HIGH) BSA - 2.43 sq.m BMI - 37.03 (HIGH) Temperature - 98.1 F (LOW) Pulse - 81 /min Respiration - 18 /min BP - 132/71 mm(hg) O2 Sat - 96 % Pain - 8 Performance Status: 3 - Capable of only limited self-care, confined to bed or chair more than 50% of waking hours. (ECOG) Physical Examination: ENMT - No mouth sores, no thrush, no jaundice, no cervical lymphadenopathy, Respiratory - Bibasilar crackles, poor air entry, Cardiovascular - Irregular rate and rhythm, Abdomen - Soft, bowel sounds present, abdominal wall edema, Extremities - 3+ pitting edema bilaterally. Lab/Imaging: Test performed on Aug 13, 2020 12:40 WBC 8.5 10 3/uL RBC 3.30 10 6/uL HGB 12.2 g/dL HCT 35.7 % MCV 108.2 fL MCH 37.0 pg MCHC 34.2 g/dL RDW 14.5 % Platelet Count 100 10 3/cmm MPV 10.6 fL Neutrophils 3.31 10 3/uL Lymphocytes 4.1 10 3/uL Monocytes 0.9 10 3/uL Eosinophils 0.2 10 3/uL Basophils 0.1 10 3/uL Neutrophil % 38.9 % Lymphocyte % 47.8 % Monocyte % 10.2 % Eosinophil % 1.9 % Basophils % 1.1 % NRBC % 0 % Test performed on Jul 16, 2020 10:54 Ferritin 619 ng/mL Test performed on Jun 17, 2020 11:30 Transferrin 156 mg/dL Test performed on Jun 17, 2020 09:35 CBC Slide Review Slide Review Perform SLIDE REVIEW AGREES WITH AUTOMATED RESULTS ST Test performed on May 28, 2020 00:00 Manual Diff Cancelled via OM: Cancelled in Connected System Impression: Isolated thrombocytopenia, etiology unclear but appears multifactorial could be due to medicine like Keppra, as per patient he was started on Keppra last year and since then his thrombocytopenia is progressive, other possibility could be splenic sequestration as patient has advanced stage cirrhosis but CT scan of abdomen done in October 2019 showed spleen was normal size other possibility could be low-grade ITP or considering his age underlying myelodysplasia cannot be ruled out. Progressive anemia, multifactorial including, considering his age underlying myelodysplasia, hemolysis immune related versus mechanical, combined iron deficiency/B12 deficiency due to GI blood loss and malabsorption History of stable compensated GARCIA related liver cirrhosis, viral hepatitis and autoimmune liver disorder ruled out History of iron storage disease, hemochromatosis ruled out, treated with regular phlebotomies at [facility] in the past Repeat DNA testing for hereditary hemochromatosis done on April 06, 2020 came back negative for C282Y and H63D pathogenic variants in the HFE gene. History of duodenal ulcer diagnosed in January 2019 History of colon polyp status post removal in January 2019 History of atrial fibrillation, on Eliquis On Keppra for questionable history of seizure History of osteoarthritis, history of hypertension Plan: Discussed with patient regarding his lab showed white blood count 12.5 hemoglobin 7.9 compared to 7.9 at the time of discharge, hematocrit 24.5 platelets 119,000 MCV 107.9 Clinically, patient is in mild to moderate distress due to off and on persistent mid chest/right chest pain etiology unclear could be cardiac but less likely, his lab work-up shows persistent moderate anemia but also extensive fluid retention, could be due to hemodilution, patient is in moderate distress due to lightheadedness dizziness and progressive shortness of breath and fluid retention as his Lasix dose was reduced to half compared to the time of admission, so we will, discontinue steroids as is unlikely patient has autoimmune hemolytic anemia, consider blood transfusion on as-needed basis if hemoglobin less than 8 g, with gentle diuresis, his hemoglobin may improve. As far as her anemia is concerned probably multifactorial including due to hemodilution due to fluid retention and chronic GI blood loss, considering his age underlying myelodysplasia cannot be ruled out, or hemolysis, Although direct Artur test was negative, Will monitor and consider blood transfusion if hemoglobin less than 8 g, as mentioned above will discontinue steroids which were given on a trial basis for presumed autoimmune hemolytic anemia His mild thrombocytopenia is stable, We will see him back in 1 month with CBC prior to that patient is going to hospital ER for evaluation for above-mentioned symptoms Signed By: Fanta Shukla M.D. <<Signature on File>>
== END 2020-11-03 12:23 | disposition home or self-care (01) ==
LOC: ONCMED 12:25
PROVIDERS: PCP Family Medicine; Visit Provider Internal Medicine Hematology & Oncology
DX: D69.6 Thrombocytopenia, unspecified (principal); D51.9 Vitamin B12 deficiency anemia, unspecified; D50.0 Iron deficiency anemia secondary to blood loss (chronic); K90.9 Intestinal malabsorption, unspecified; I48.91 Unspecified atrial fibrillation; M19.90 Unspecified osteoarthritis, unspecified site; I10 Essential (primary) hypertension; Z79.01 Long term (current) use of anticoagulants; Z79.899 Other long term (current) drug therapy; Z86.010 Personal history of colon polyps; Z86.19 Personal history of other infectious and parasitic diseases
CPT/HCPCS: 80053; 82728; 85025; 99214

== ENCOUNTER 2020-11-03 14:10 | Inpatient (IN) | payer OTHER, MEDICARE, SELFPAY ==
[2020-11-03] VITALS (8 sets, daily range): BP systolic 131–148; BP diastolic 63–74; PULSE 73–78; RESP 16–28; TEMP 36.8; O2SAT 96–100; BMI 37.0
--- NOTE | 2020-11-03 15:16 | XR_ITS ---
WS: [id number] Exam: XR chest 1V portable [id number] Date/Time of Exam: 11/03/2020 3:16 PM Reason For Exam: Cough Comparison 10/22/2019. The lungs are fully expanded. The heart is not enlarged. Pulmonary vascularity is increased. No pleur al effusions or pneumothorax. The mediastinum is not widened. A small battery pack superimposes the l eft heart. Regional bony structures are intact. XR/XR chest 1V portable [id number] IMPRESSION: 1. Mild pulmonary vascular congestion noted.
[2020-11-03 15:49] LABS: ABG PCO2 34.9 mmHg (35-45); ABG PH Result 7.44 (7.35-7.45); Alveolar-Arterial Oxygen Gradi 2.1 mmHg (5-10); Arterial Blood Gas Hematocrit 25.2 % (42-52); Blood Gas Allen Test Pos; Blood Gas Operator Identificat ED; Blood Gas Sample Site Radial, right; Blood Gas Sample Type Arterial; Carboxyhemoglobin 1.7 %THgb (0.4-20.1); HCO3 ABG 23.9 mmol/L (22-26); HGB O2 Sat 95.7 % (95-100); Ionized Calcium Level - ABG 1.2 mmol/L (1.1-1.4); Methemoglobin 1.1 % (0.4-1.5); Oxygen Device ROOM AIR; Oxygen Saturation ABG 98.4; PO2 ABG 89.8 mmHg (80.0-100.0); Potassium Level - ABG 5.6 mmol/L (3.5-5.0); Total Hemoglobin 8.2 g/dL (14-18)
--- NOTE | 2020-11-03 15:50 | ED_ITS ---
Documented by User: Kev Elkins MD 11/03/20 17:44 HPI - SOB/Dyspnea General: Chief Complaint: Shortness of Breath/Dyspnea Stated Complaint: CP, BLE SWELLING, SENT BY DR BROWNING Time Seen by Provider: 11/03/20 15:45 Source: patient, family, RN notes reviewed and old records reviewed Limitations: no limitations History of Present Illness: HPI Narrative: This patient is a 75-year-old male who presents to the emergency department plaint complaining of acute shortness of breath and weight gain. Patient has a history of congestive heart failure. Patient was recently admitted and discharged on 10/26/2020 after diuresing. Patient was on 80 Lasix twice a day during that admission and lost a total of 40 pounds of excess weight. Patient discharged from 10/27 through 11/01/2020 patient has regained at least 23 pounds. Patient also had some mild shortness of breath. Patient has 4+ pitting edema to the lower extremities. Patient states as an outpatient been taking Lasix 40 mg twice daily. MD elicited complaint: shortness of breath Associated symptoms: Deny abdominal pain, chest pain, extremity pain, fever(s), lightheadedness, nausea, palpitations or vomiting Review of Systems General: Reports: 10 or more systems reviewed and unremarkable except in HPI and below Const: Denies: fever(s), chills, body aches or fatigue Eyes: Denies: change in vision or blurry vision ENMT: Denies: throat pain, hoarseness or mouth pain Card: Reports: edema, swelling of feet/ankles and dyspnea on exertion; Denies: chest pain, palpitations, irregular heart rhythm or lightheadedness Resp: Denies: dyspnea, productive cough, non-productive cough, wheezing or pain on inspiration GI: Denies: abdominal pain, nausea or vomiting : Denies: flank pain, dysuria, urinary frequency, urinary urgency or urinary hesitancy Musc: Denies: neck pain, back pain, extremity pain, extremity swelling, joint pain, joint swelling, joint redness, joint warmth or limited range of motion Skin/Breast: Denies: rash, pruritus, erythema or skin tenderness Neuro: Denies: headache(s), numbness in extremities or weakness in extremities Psych: Denies: anxiety or depression PFS ED PFSH: Medical History AAA (abdominal aortic aneurysm) 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 Atrial fibrillation On Eliquis BPH (benign prostatic hyperplasia) Carotid artery stenosis Diverticulosis Duodenal ulcer Gastritis Hemochromatosis Hemochromatosis Hiatal hernia History of colon polyps Follow-up colonoscopy in 2023 HTN (hypertension) Hyperlipidemia Internal hemorrhoids Liver, cirrhosis, portal Portal hypertension S/P ORIF (open reduction internal fixation) fracture RIGHT HIP Status post placement of implantable loop recorder TIA (transient ischemic attack) UTI (urinary tract infection) Surgical History History of cystoscopy History of esophagogastroduodenoscopy (EGD) History of vasectomy S/P discectomy Status post colonoscopy with polypectomy Family History Mother Stroke Brother [id number] deficiency Denies family history of Anesthesia complication Bleeding disorder Social History Smoking and tobacco status: never smoked Alcohol intake: never Household members: spouse Marital status: Current occupational status: retired Physical Exam Const: COMMON NORMALS: no acute distress, average body habitus, patient oriented x3, no limitations, healthy appearing, alert and well nourished HENMT: COMMON NORMALS: normocephalic, atraumatic, hearing grossly normal bilaterally, external ears normal, EAC's normal, TM's normal bilaterally, Normal external nose present, Normal nasal mucous membranes and turbinates present, moist oral mucous membranes, oropharynx normal, dentition normal and gingiva normal HEAD & SCALP: normocephalic and atraumatic NOSE: Normal external nose present and Normal nasal mucous membranes and turbinates present EXTERNAL EAR: Yes external ears normal EXTERNAL AUDITORY CANAL: EAC's normal TYMPANIC MEMBRANE: TM's normal bilaterally Neck/C-Spine: COMMON NORMALS: full ROM, no lymphadenopathy, supple, no meningeal signs, no JVD, Thyroid normal and No carotid bruits THYROID: Thyroid normal Chest: COMMONS NORMALS: normal inspection of the chest, normal palpation of entire chest wall, normal inspection of the breasts and normal palpation of the breasts Breast/axilla inspection: Yes normal inspection of the breasts BREAST/AXILLA PALPATION: Yes normal palpation of the breasts Resp: COMMON NORMALS: normal respiratory effort, No retractions, No use of accessory muscles, clear to auscultation bilaterally and percussion normal AUSCULTATION: clear to auscultation bilaterally PERCUSSION: percussion normal Cardio: COMMON NORMALS: no JVD, regular rate, regular rhythm, S1 normal heart sound present, S2 normal heart sound present, No gallops present (Cardio), No clicks present (Cardio), No murmurs present (Cardio) and No rub (Cardio) RATE: regular rate RHYTHM: regular rhythm HEART SOUNDS: S1 normal heart sound present and S2 normal heart sound present OTHER: Patient has 4+ pitting edema to lower extremities. GI: COMMON NORMALS: Normal to inspection, nondistended, normoactive bowel sounds present, Soft to palpation, non-tender, No hepatosplenomegaly present, no masses and no bruits PALPATION: Yes Soft to palpation and Yes No hepatosplenomegaly present : COMMON NORMALS: Yes no CVA tenderness BLADDER/KIDNEY EXAM: Yes no CVA tenderness Back/Pelvis: COMMON NORMALS: no CVA tenderness, thoracic and lumbar spine normal to inspection, no thoracic nor lumbar tenderness, thoraco-lumbar ROM normal and straight leg raise negative bilaterally Extremity: COMMON NORMALS: normal to inspection, full ROM, capillary refill normal, no joint enlargement, no clubbing, cyanosis or edema, no calf tenderness and no pedal edema Neuro: COMMON NORMALS: patient oriented x3 SENSORIUM/ORIENTATION: Yes alert MENINGEAL SIGNS: Yes no meningeal signs Course Consultations: Consultation #1: Care transferred to Dr. Cast for shift change Time: 17:43 Vital Signs: Vital signs: Vital Signs Temperature 98.2 F 11/03/20 14:24 Pulse Rate 75 11/03/20 19:17 Respiratory Rate 26 H 11/03/20 19:17 Blood Pressure 131/64 11/03/20 19:17 Pulse Oximetry 97 11/03/20 19:17 MDM - SOB/Dyspnea MDM Narrative: Medical decision making narrative: This patient is a 75-year-old male who presents to the emergency department plaint complaining of acute shortness of breath and weight gain. Patient has a history of congestive heart failure. Patient was recently admitted and discharged on 10/26/2020 after diuresing. Patient was on 80 Lasix twice a day during that admission and lost a total of 40 pounds of excess weight. Patient discharged from 10/27 through 11/01/2020 patient has regained at least 23 pounds. Patient also had some mild shortness of breath. Patient has 4+ pitting edema to the lower extremities. Patient states as an outpatient been taking Lasix 40 mg twice daily. Differential Diagnosis: Shortness of Breath Differential Diagnosis: Likely acute exacerbation of chronic obstructive airways disease, congestive heart failure, community acquired pneumonia, asthma with exacerbation and pulmonary embolism Medical Records: Attestation: I reviewed the patient's medical records. Lab Data: Attestation: I reviewed the patient's lab results. Labs: Lab Results 11/03/20 11/03/20 11/03/20 Range/Units 15:39 16:35 16:35 WBC 11.5 H (4.0-10.0) 10^3/ uL RBC 2.25 L (4.1-5.3) 10^6/u L Hgb 7.7 L (11.7-16.6) g/dL Hct 24.0 L (42.0-52.0) % MCV 106.7 H (80-94) fL MCH 34.2 H (28.0-34.0) pg MCHC 32.1 (30.0-36.0) g/dL RDW 15.4 H (12.1-15.1) % Plt Count 112 L (130-400) 10^3/c mm MPV 10.7 H (7.4-10.4) fL Neut % (Auto) 86.3 % Lymph % (Auto) 5.1 % Love % (Auto) 6.6 % Eos % (Auto) 0.0 % Baso % (Auto) 0.1 % Neut # (Auto) 9.89 H (1.8-7.7) 10^3/u L Lymph # (Auto) 0.6 L (0.8-4.8) 10^3/u L Love # (Auto) 0.8 (0.2-0.9) 10^3/u L Eos # (Auto) 0.0 (0.0-0.8) 10^3/u L Baso # (Auto) 0.0 (0.0-0.1) 10^3/u L Nucleated RBC % (a uto) 0 % Nucleated RBCs # 0.0 /100WBC PT 24.90 H (12.1-14.9) SECO NDS INR 2.20 H (0.8-1.2) APTT 29.8 (23.9-36.7) SECO NDS D-Dimer 1.87 H (0-0.59) ug/mIFE U Specimen Type Arterial Sample Site Radial, right ABG pH 7.44 (7.35-7.45) ABG pCO2 34.9 L (35-45) mmHg ABG pO2 89.8 (80.0-100.0) mmH g ABG HCO3 23.9 (22-26) mmol/L ABG O2 Saturation 98.4 ABG Base Excess 0.0 (-2.0-2.0) mmol/ L Avila Test Pos A-a O2 Gradient 2.1 L (5-10) mmHg Hematocrit 25.2 L (42-52) % Hgb O2 Saturation 95.7 (95-100) % Carboxyhemoglobin 1.7 (0.4-20.1) %THgb Methemoglobin 1.1 (0.4-1.5) % Total Hemoglobin 8.2 L (14-18) g/dL Sodium 124.0 L (131-143) mmol/L Potassium 5.6 H (3.5-5.0) mmol/L Glucose 116.0 H (70-115) mg/dL Ionized Calcium 1.2 (1.1-1.4) mmol/L O2 Delivery Device Room air FiO2 21.0 % On Site Property Manager ID Ed Chloride (98-107) mmol/L Carbon Dioxide (22-29) mmol/L Anion Gap (5-19) BUN (8-23) mg/dL Creatinine (0.7-1.2) mg/dL GFR Calculation Calculated Osmolal ity (285-295) mOsm/k g Lactic Acid (0.5-2.2) mmol/L Calcium (8.5-10.5) mg/dL Total Bilirubin (0.15-1.2) mg/dL AST (0-40) U/L ALT (0-41) U/L Alkaline Phosphata se (40-130) IU/L Troponin T Baselin e (0-15) ng/L Troponin T 120 Min [place] (0-15) ng/L Delta Troponin T (0-10) ABS# NT-Pro-B Natriuret Pep (0-125) pg/mL Total Protein (6.6-8.7) g/dL Albumin (3.5-5.2) g/dL Globulin (1.3-4.6) g/dL Urine Color (Yellow) Urine Appearance (CLEAR) Urine pH (5-7) Ur Specific Gravit y (1.005-1.030) Urine Protein (Negative) Urine Glucose (UA) (Normal) Urine Ketones (Negative) Urine Blood (Negative) Urine Nitrate (Negative) Urine Bilirubin Urine Urobilinogen (Negative) mg/dL Ur Leukocyte Marcie ase (Negative) Urine RBC (0-2) /hpf Urine WBC (0-5) /hpf Ur Squamous Epith Cells (0-5) /hpf Amorphous Sediment Urine Bacteria (NONE) /hpf Hyaline Casts /lpf SARS-CoV-2 Ag (Rap id) (Negative) 11/03/20 11/03/20 11/03/20 Range/Units 16:35 16:35 16:35 WBC (4.0-10.0) 10^3/ uL RBC (4.1-5.3) 10^6/u L Hgb (11.7-16.6) g/dL Hct (42.0-52.0) % MCV (80-94) fL MCH (28.0-34.0) pg MCHC (30.0-36.0) g/dL RDW (12.1-15.1) % Plt Count (130-400) 10^3/c mm MPV (7.4-10.4) fL Neut % (Auto) % Lymph % (Auto) % Love % (Auto) % Eos % (Auto) % Baso % (Auto) % Neut # (Auto) (1.8-7.7) 10^3/u L Lymph # (Auto) (0.8-4.8) 10^3/u L Love # (Auto) (0.2-0.9) 10^3/u L Eos # (Auto) (0.0-0.8) 10^3/u L Baso # (Auto) (0.0-0.1) 10^3/u L Nucleated RBC % (a uto) % Nucleated RBCs # /100WBC PT (12.1-14.9) SECO NDS INR (0.8-1.2) APTT (23.9-36.7) SECO NDS D-Dimer (0-0.59) ug/mIFE U Specimen Type Sample Site ABG pH (7.35-7.45) ABG pCO2 (35-45) mmHg ABG pO2 (80.0-100.0) mmH g ABG HCO3 (22-26) mmol/L ABG O2 Saturation ABG Base Excess (-2.0-2.0) mmol/ L Avila Test A-a O2 Gradient (5-10) mmHg Hematocrit (42-52) % Hgb O2 Saturation (95-100) % Carboxyhemoglobin (0.4-20.1) %THgb Methemoglobin (0.4-1.5) % Total Hemoglobin (14-18) g/dL Sodium 122 L (131-143) mmol/L Potassium 5.7 H (3.5-5.0) mmol/L Glucose 110 (70-115) mg/dL Ionized Calcium (1.1-1.4) mmol/L O2 Delivery Device FiO2 % On Site Property Manager ID Chloride 92 L (98-107) mmol/L Carbon Dioxide 24 (22-29) mmol/L Anion Gap 11.7 (5-19) BUN 34 H (8-23) mg/dL Creatinine 1.1 (0.7-1.2) mg/dL GFR Calculation Not Reportable Calculated Osmolal ity 262 L (285-295) mOsm/k g Lactic Acid 1.6 (0.5-2.2) mmol/L Calcium 7.8 L (8.5-10.5) mg/dL Total Bilirubin 5.4 H (0.15-1.2) mg/dL AST 76 H (0-40) U/L ALT 59 H (0-41) U/L Alkaline Phosphata se 93 (40-130) IU/L Troponin T Baselin e 51 H (0-15) ng/L Troponin T 120 Min [place] (0-15) ng/L Delta Troponin T (0-10) ABS# NT-Pro-B Natriuret Pep 1432 H (0-125) pg/mL Total Protein 6.0 L (6.6-8.7) g/dL Albumin 2.9 L (3.5-5.2) g/dL Globulin 3.1 (1.3-4.6) g/dL Urine Color (Yellow) Urine Appearance (CLEAR) Urine pH (5-7) Ur Specific Gravit y (1.005-1.030) Urine Protein (Negative) Urine Glucose (UA) (Normal) Urine Ketones (Negative) Urine Blood (Negative) Urine Nitrate (Negative) Urine Bilirubin Urine Urobilinogen (Negative) mg/dL Ur Leukocyte Marcie ase (Negative) Urine RBC (0-2) /hpf Urine WBC (0-5) /hpf Ur Squamous Epith Cells (0-5) /hpf Amorphous Sediment Urine Bacteria (NONE) /hpf Hyaline Casts /lpf SARS-CoV-2 Ag (Rap id) (Negative) 11/03/20 11/03/20 11/03/20 Range/Units 16:38 17:18 18:26 WBC (4.0-10.0) 10^3/ uL RBC (4.1-5.3) 10^6/u L Hgb (11.7-16.6) g/dL Hct (42.0-52.0) % MCV (80-94) fL MCH (28.0-34.0) pg MCHC (30.0-36.0) g/dL RDW (12.1-15.1) % Plt Count (130-400) 10^3/c mm MPV (7.4-10.4) fL Neut % (Auto) % Lymph % (Auto) % Love % (Auto) % Eos % (Auto) % Baso % (Auto) % Neut # (Auto) (1.8-7.7) 10^3/u L Lymph # (Auto) (0.8-4.8) 10^3/u L Love # (Auto) (0.2-0.9) 10^3/u L Eos # (Auto) (0.0-0.8) 10^3/u L Baso # (Auto) (0.0-0.1) 10^3/u L Nucleated RBC % (a uto) % Nucleated RBCs # /100WBC PT (12.1-14.9) SECO NDS INR (0.8-1.2) APTT (23.9-36.7) SECO NDS D-Dimer (0-0.59) ug/mIFE U Specimen Type Sample Site ABG pH (7.35-7.45) ABG pCO2 (35-45) mmHg ABG pO2 (80.0-100.0) mmH g ABG HCO3 (22-26) mmol/L ABG O2 Saturation ABG Base Excess (-2.0-2.0) mmol/ L Avila Test A-a O2 Gradient (5-10) mmHg Hematocrit (42-52) % Hgb O2 Saturation (95-100) % Carboxyhemoglobin (0.4-20.1) %THgb Methemoglobin (0.4-1.5) % Total Hemoglobin (14-18) g/dL Sodium (131-143) mmol/L Potassium (3.5-5.0) mmol/L Glucose (70-115) mg/dL Ionized Calcium (1.1-1.4) mmol/L O2 Delivery Device FiO2 % On Site Property Manager ID Chloride (98-107) mmol/L Carbon Dioxide (22-29) mmol/L Anion Gap (5-19) BUN (8-23) mg/dL Creatinine (0.7-1.2) mg/dL GFR Calculation Calculated Osmolal ity (285-295) mOsm/k g Lactic Acid (0.5-2.2) mmol/L Calcium (8.5-10.5) mg/dL Total Bilirubin (0.15-1.2) mg/dL AST (0-40) U/L ALT (0-41) U/L Alkaline Phosphata se (40-130) IU/L Troponin T Baselin e (0-15) ng/L Troponin T 120 Min [place] 51.07 H (0-15) ng/L Delta Troponin T 0.07 (0-10) ABS# NT-Pro-B Natriuret Pep (0-125) pg/mL Total Protein (6.6-8.7) g/dL Albumin (3.5-5.2) g/dL Globulin (1.3-4.6) g/dL Urine Color Yellow (Yellow) Urine Appearance Hazy A (CLEAR) Urine pH 6 (5-7) Ur Specific Gravit y 1.010 (1.005-1.030) Urine Protein Neg (Negative) Urine Glucose (UA) Norm (Normal) Urine Ketones Negative (Negative) Urine Blood 2+ H (Negative) Urine Nitrate Negative (Negative) Urine Bilirubin Not Reportable Urine Urobilinogen Norm (Negative) mg/dL Ur Leukocyte Marcie ase Trace H (Negative) Urine RBC 25-40 H (0-2) /hpf Urine WBC 15-25 H (0-5) /hpf Ur Squamous Epith Cells 0-4 H (0-5) /hpf Amorphous Sediment Not Reportable Urine Bacteria 1+ H (NONE) /hpf Hyaline Casts 5-10 H /lpf SARS-CoV-2 Ag (Rap id) Negative (Negative) Imaging Data^: CXR: Attestation: I personally reviewed and interpreted this imaging study as follows: Radiologist's impression: IMPRESSION: 1. Mild pulmonary vascular congestion noted. EKG Data^: EKG 1: Attestation: I personally reviewed and interpreted this EKG as follows: EKG Interpretation Date: 11/03/20 EKG interpretation time: 14:36 Prior EKG tracings: available for review Interpretation: Sinus rhythm with first-degree AV block heart rate 77 otherwise nonspecific EKG ABG Data^: ABG Interpretation 1: ABG results: pH 744 PCO2 34.9 PO2 89.8 Attestation: I personally reviewed and interpreted this ABG as follows: Interpretation: Normal ABG Discharge Plan Discharge Clinical Impression: Anasarca Heart failure, chronic, with acute decompensation Qualifiers: Heart failure type: unspecified Qualified Code(s): I50.9 - Heart failure, unspecified Condition: Stable Prescriptions: No Action levetiracetam 750 mg tablet 750 mg PO BID@ RF: 0 Eliquis 5 mg tablet 2.5 mg PO BID@ RF: 0 albuterol sulfate 90 mcg/actuation HFA aerosol inhaler 2 puff INHALATION Q6H PRN (Reason: Shortness Of Breath) RF: 0 pantoprazole 40 mg tablet,delayed release (DR/EC) 40 mg PO DAILY@08 RF: 0 pravastatin 20 mg tablet 10 mg PO DAILY@17 RF: 0 cyclobenzaprine 5 mg tablet 5 mg PO BID PRN (Reason: MUSCLE CRAMPS) RF: 0 potassium chloride 10 mEq tablet extended release 10 meq PO BID RF: 0 folic acid 1 mg Tablet 1 mg PO DAILY@08 RF: 0 lactulose 10 gram/15 mL solution 45 ml PO TID@08,,14 RF: 0 cholecalciferol (vitamin D3) [Vitamin D3] 25 mcg (1,000 unit) Tablet 3,000 unit PO DAILY@08 RF: 0 spironolactone 25 mg tablet 25 mg PO DAILY@08 RF: 0 Fish Oil Capsule 1,000 mg PO BID RF: 0 Symbicort 80-4.5 mcg/actuation Hfa Aerosol Inhaler 2 puff INHALATION BID RF: 0 Xifaxan 550 mg tablet 550 mg PO BID@0800,1700 RF: 0 furosemide 40 mg tablet 40 mg PO BID@08,14 10 Days Qty: 0 RF: 0 prednisone 20 mg tablet See Taper mg PO DAILY Qty: 120 RF: 0 B cmplx 4-vit [id number] 1,750-60-1-12.5 dlun-ym-bo-mg tablet 1 tab PO DAILY Qty: 30 RF: 0 Referrals: Jessica Moreira MD [Primary Care Provider] - Coding Level of Care Code ED Sweet Potato Disintegrator for Chg Fwd Exam Comprehensive Documented by User: Harvey Cast MD 11/03/20 21:31 HPI - SOB/Dyspnea General: Chief Complaint: Shortness of Breath/Dyspnea Stated Complaint: CP, BLE SWELLING, SENT BY DR BROWNING Time Seen by Provider: 11/03/20 15:45 PFS ED PFSH: Medical History AAA (abdominal aortic aneurysm) 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 Atrial fibrillation On Eliquis BPH (benign prostatic hyperplasia) Carotid artery stenosis Diverticulosis Duodenal ulcer Gastritis Hemochromatosis Hemochromatosis Hiatal hernia History of colon polyps Follow-up colonoscopy in 2023 HTN (hypertension) Hyperlipidemia Internal hemorrhoids Liver, cirrhosis, portal Portal hypertension S/P ORIF (open reduction internal fixation) fracture RIGHT HIP Status post placement of implantable loop recorder TIA (transient ischemic attack) UTI (urinary tract infection) Surgical History History of cystoscopy History of esophagogastroduodenoscopy (EGD) History of vasectomy S/P discectomy Status post colonoscopy with polypectomy Family History Mother Stroke Brother Yjocg-[id number] deficiency Denies family history of Anesthesia complication Bleeding disorder Social History Smoking and tobacco status: never smoked Alcohol intake: never Household members: spouse Marital status: Current occupational status: retired Course Vital Signs: Vital signs: Vital Signs Temperature 98.2 F 11/03/20 14:24 Pulse Rate 75 11/03/20 19:17 Respiratory Rate 26 H 11/03/20 19:17 Blood Pressure 131/64 11/03/20 19:17 Pulse Oximetry 97 11/03/20 19:17 MDM - SOB/Dyspnea MDM Narrative: Medical decision making narrative: Patient remained tachycardic throughout ED course. He is hypokalemic and near syncopal when he stands up. He has had times of confusion and frequent falls. He now complains of headache. CT head will be performed he will be admitted to the hospital service for electrolyte repletion and symptomatic care. He will be started on a D5 drip. Patient and family agreed to the plan. Lab Data: Labs: Lab Results 11/03/20 11/03/20 11/03/20 Range/Units 15:39 16:35 16:35 WBC 11.5 H (4.0-10.0) 10^3/ uL RBC 2.25 L (4.1-5.3) 10^6/u L Hgb 7.7 L (11.7-16.6) g/dL Hct 24.0 L (42.0-52.0) % MCV 106.7 H (80-94) fL MCH 34.2 H (28.0-34.0) pg MCHC 32.1 (30.0-36.0) g/dL RDW 15.4 H (12.1-15.1) % Plt Count 112 L (130-400) 10^3/c mm MPV 10.7 H (7.4-10.4) fL Neut % (Auto) 86.3 % Lymph % (Auto) 5.1 % Love % (Auto) 6.6 % Eos % (Auto) 0.0 % Baso % (Auto) 0.1 % Neut # (Auto) 9.89 H (1.8-7.7) 10^3/u L Lymph # (Auto) 0.6 L (0.8-4.8) 10^3/u L Love # (Auto) 0.8 (0.2-0.9) 10^3/u L Eos # (Auto) 0.0 (0.0-0.8) 10^3/u L Baso # (Auto) 0.0 (0.0-0.1) 10^3/u L Nucleated RBC % (a uto) 0 % Nucleated RBCs # 0.0 /100WBC PT 24.90 H (12.1-14.9) SECO NDS INR 2.20 H (0.8-1.2) APTT 29.8 (23.9-36.7) SECO NDS D-Dimer 1.87 H (0-0.59) ug/mIFE U Specimen Type Arterial Sample Site Radial, right ABG pH 7.44 (7.35-7.45) ABG pCO2 34.9 L (35-45) mmHg ABG pO2 89.8 (80.0-100.0) mmH g ABG HCO3 23.9 (22-26) mmol/L ABG O2 Saturation 98.4 ABG Base Excess 0.0 (-2.0-2.0) mmol/ L Avila Test Pos A-a O2 Gradient 2.1 L (5-10) mmHg Hematocrit 25.2 L (42-52) % Hgb O2 Saturation 95.7 (95-100) % Carboxyhemoglobin 1.7 (0.4-20.1) %THgb Methemoglobin 1.1 (0.4-1.5) % Total Hemoglobin 8.2 L (14-18) g/dL Sodium 124.0 L (131-143) mmol/L Potassium 5.6 H (3.5-5.0) mmol/L Glucose 116.0 H (70-115) mg/dL Ionized Calcium 1.2 (1.1-1.4) mmol/L O2 Delivery Device Room air FiO2 21.0 % On Site Property Manager ID Ed Chloride (98-107) mmol/L Carbon Dioxide (22-29) mmol/L Anion Gap (5-19) BUN (8-23) mg/dL Creatinine (0.7-1.2) mg/dL GFR Calculation Calculated Osmolal ity (285-295) mOsm/k g Lactic Acid (0.5-2.2) mmol/L Calcium (8.5-10.5) mg/dL Total Bilirubin (0.15-1.2) mg/dL AST (0-40) U/L ALT (0-41) U/L Alkaline Phosphata se (40-130) IU/L Troponin T Baselin e (0-15) ng/L Troponin T 120 Min [place] (0-15) ng/L Delta Troponin T (0-10) ABS# NT-Pro-B Natriuret Pep (0-125) pg/mL Total Protein (6.6-8.7) g/dL Albumin (3.5-5.2) g/dL Globulin (1.3-4.6) g/dL Urine Color (Yellow) Urine Appearance (CLEAR) Urine pH (5-7) Ur Specific Gravit y (1.005-1.030) Urine Protein (Negative) Urine Glucose (UA) (Normal) Urine Ketones (Negative) Urine Blood (Negative) Urine Nitrate (Negative) Urine Bilirubin Urine Urobilinogen (Negative) mg/dL Ur Leukocyte Marcie ase (Negative) Urine RBC (0-2) /hpf Urine WBC (0-5) /hpf Ur Squamous Epith Cells (0-5) /hpf Amorphous Sediment Urine Bacteria (NONE) /hpf Hyaline Casts /lpf SARS-CoV-2 Ag (Rap id) (Negative) 11/03/20 11/03/20 11/03/20 Range/Units 16:35 16:35 16:35 WBC (4.0-10.0) 10^3/ uL RBC (4.1-5.3) 10^6/u L Hgb (11.7-16.6) g/dL Hct (42.0-52.0) % MCV (80-94) fL MCH (28.0-34.0) pg MCHC (30.0-36.0) g/dL RDW (12.1-15.1) % Plt Count (130-400) 10^3/c mm MPV (7.4-10.4) fL Neut % (Auto) % Lymph % (Auto) % Love % (Auto) % Eos % (Auto) % Baso % (Auto) % Neut # (Auto) (1.8-7.7) 10^3/u L Lymph # (Auto) (0.8-4.8) 10^3/u L Love # (Auto) (0.2-0.9) 10^3/u L Eos # (Auto) (0.0-0.8) 10^3/u L Baso # (Auto) (0.0-0.1) 10^3/u L Nucleated RBC % (a uto) % Nucleated RBCs # /100WBC PT (12.1-14.9) SECO NDS INR (0.8-1.2) APTT (23.9-36.7) SECO NDS D-Dimer (0-0.59) ug/mIFE U Specimen Type Sample Site ABG pH (7.35-7.45) ABG pCO2 (35-45) mmHg ABG pO2 (80.0-100.0) mmH g ABG HCO3 (22-26) mmol/L ABG O2 Saturation ABG Base Excess (-2.0-2.0) mmol/ L Avila Test A-a O2 Gradient (5-10) mmHg Hematocrit (42-52) % Hgb O2 Saturation (95-100) % Carboxyhemoglobin (0.4-20.1) %THgb Methemoglobin (0.4-1.5) % Total Hemoglobin (14-18) g/dL Sodium 122 L (131-143) mmol/L Potassium 5.7 H (3.5-5.0) mmol/L Glucose 110 (70-115) mg/dL Ionized Calcium (1.1-1.4) mmol/L O2 Delivery Device FiO2 % On Site Property [employer] ID Chloride 92 L (98-107) mmol/L Carbon Dioxide 24 (22-29) mmol/L Anion Gap 11.7 (5-19) BUN 34 H (8-23) mg/dL Creatinine 1.1 (0.7-1.2) mg/dL GFR Calculation Not Reportable Calculated Osmolal ity 262 L (285-295) mOsm/k g Lactic Acid 1.6 (0.5-2.2) mmol/L Calcium 7.8 L (8.5-10.5) mg/dL Total Bilirubin 5.4 H (0.15-1.2) mg/dL AST 76 H (0-40) U/L ALT 59 H (0-41) U/L Alkaline Phosphata se 93 (40-130) IU/L Troponin T Baselin e 51 H (0-15) ng/L Troponin T 120 Min [place] (0-15) ng/L Delta Troponin T (0-10) ABS# NT-Pro-B Natriuret Pep 1432 H (0-125) pg/mL Total Protein 6.0 L (6.6-8.7) g/dL Albumin 2.9 L (3.5-5.2) g/dL Globulin 3.1 (1.3-4.6) g/dL Urine Color (Yellow) Urine Appearance (CLEAR) Urine pH (5-7) Ur Specific Gravit y (1.005-1.030) Urine Protein (Negative) Urine Glucose (UA) (Normal) Urine Ketones (Negative) Urine Blood (Negative) Urine Nitrate (Negative) Urine Bilirubin Urine Urobilinogen (Negative) mg/dL Ur Leukocyte Marcie ase (Negative) Urine RBC (0-2) /hpf Urine WBC (0-5) /hpf Ur Squamous Epith Cells (0-5) /hpf Amorphous Sediment Urine Bacteria (NONE) /hpf Hyaline Casts /lpf SARS-CoV-2 Ag (Rap id) (Negative) 11/03/20 11/03/20 11/03/20 Range/Units 16:38 17:18 18:26 WBC (4.0-10.0) 10^3/ uL RBC (4.1-5.3) 10^6/u L Hgb (11.7-16.6) g/dL Hct (42.0-52.0) % MCV (80-94) fL MCH (28.0-34.0) pg MCHC (30.0-36.0) g/dL RDW (12.1-15.1) % Plt Count (130-400) 10^3/c mm MPV (7.4-10.4) fL Neut % (Auto) % Lymph % (Auto) % Love % (Auto) % Eos % (Auto) % Baso % (Auto) % Neut # (Auto) (1.8-7.7) 10^3/u L Lymph # (Auto) (0.8-4.8) 10^3/u L Love # (Auto) (0.2-0.9) 10^3/u L Eos # (Auto) (0.0-0.8) 10^3/u L Baso # (Auto) (0.0-0.1) 10^3/u L Nucleated RBC % (a uto) % Nucleated RBCs # /100WBC PT (12.1-14.9) SECO NDS INR (0.8-1.2) APTT (23.9-36.7) SECO NDS D-Dimer (0-0.59) ug/mIFE U Specimen Type Sample Site ABG pH (7.35-7.45) ABG pCO2 (35-45) mmHg ABG pO2 (80.0-100.0) mmH g ABG HCO3 (22-26) mmol/L ABG O2 Saturation ABG Base Excess (-2.0-2.0) mmol/ L Avila Test A-a O2 Gradient (5-10) mmHg Hematocrit (42-52) % Hgb O2 Saturation (95-100) % Carboxyhemoglobin (0.4-20.1) %THgb Methemoglobin (0.4-1.5) % Total Hemoglobin (14-18) g/dL Sodium (131-143) mmol/L Potassium (3.5-5.0) mmol/L Glucose (70-115) mg/dL Ionized Calcium (1.1-1.4) mmol/L O2 Delivery Device FiO2 % On Site Property Manager ID Chloride (98-107) mmol/L Carbon Dioxide (22-29) mmol/L Anion Gap (5-19) BUN (8-23) mg/dL Creatinine (0.7-1.2) mg/dL GFR Calculation Calculated Osmolal ity (285-295) mOsm/k g Lactic Acid (0.5-2.2) mmol/L Calcium (8.5-10.5) mg/dL Total Bilirubin (0.15-1.2) mg/dL AST (0-40) U/L ALT (0-41) U/L Alkaline Phosphata se (40-130) IU/L Troponin T Baselin e (0-15) ng/L Troponin T 120 Min [place] 51.07 H (0-15) ng/L Delta Troponin T 0.07 (0-10) ABS# NT-Pro-B Natriuret Pep (0-125) pg/mL Total Protein (6.6-8.7) g/dL Albumin (3.5-5.2) g/dL Globulin (1.3-4.6) g/dL Urine Color Yellow (Yellow) Urine Appearance Hazy A (CLEAR) Urine pH 6 (5-7) Ur Specific Gravit y 1.010 (1.005-1.030) Urine Protein Neg (Negative) Urine Glucose (UA) Norm (Normal) Urine Ketones Negative (Negative) Urine Blood 2+ H (Negative) Urine Nitrate Negative (Negative) Urine Bilirubin Not Reportable Urine Urobilinogen Norm (Negative) mg/dL Ur Leukocyte Marcie ase Trace H (Negative) Urine RBC 25-40 H (0-2) /hpf Urine WBC 15-25 H (0-5) /hpf Ur Squamous Epith Cells 0-4 H (0-5) /hpf Amorphous Sediment Not Reportable Urine Bacteria 1+ H (NONE) /hpf Hyaline Casts 5-10 H /lpf SARS-CoV-2 Ag (Rap id) Negative (Negative) Discharge Plan Discharge Clinical Impression: Anasarca Heart failure, chronic, with acute decompensation Qualifiers: Heart failure type: unspecified Qualified Code(s): I50.9 - Heart failure, unspecified Condition: Stable Prescriptions: No Action levetiracetam 750 mg tablet 750 mg PO BID@ RF: 0 Eliquis 5 mg tablet 2.5 mg PO BID@ RF: 0 albuterol sulfate 90 mcg/actuation HFA aerosol inhaler 2 puff INHALATION Q6H PRN (Reason: Shortness Of Breath) RF: 0 pantoprazole 40 mg tablet,delayed release (DR/EC) 40 mg PO DAILY@08 RF: 0 pravastatin 20 mg tablet 10 mg PO DAILY@ RF: 0 cyclobenzaprine 5 mg tablet 5 mg PO BID PRN (Reason: MUSCLE CRAMPS) RF: 0 potassium chloride 10 mEq tablet extended release 10 meq PO BID RF: 0 folic acid 1 mg Tablet 1 mg PO DAILY@08 RF: 0 lactulose 10 gram/15 mL solution 45 ml PO TID@08,11,14 RF: 0 cholecalciferol (vitamin D3) [Vitamin D3] 25 mcg (1,000 unit) Tablet 3,000 unit PO DAILY@08 RF: 0 spironolactone 25 mg tablet 25 mg PO DAILY@08 RF: 0 Fish Oil Capsule 1,000 mg PO BID RF: 0 Symbicort 80-4.5 mcg/actuation Hfa Aerosol Inhaler 2 puff INHALATION BID RF: 0 Xifaxan 550 mg tablet 550 mg PO BID@0800,1700 RF: 0 furosemide 40 mg tablet 40 mg PO BID@08,14 10 Days Qty: 0 RF: 0 prednisone 20 mg tablet See Taper mg PO DAILY Qty: 120 RF: 0 B cmplx 4-vit Q8-V-zlxuc-zinc 1,750-60-1-12.5 cqyp-dp-uh-mg tablet 1 tab PO DAILY Qty: 30 RF: 0 Referrals: Jessica Moreira MD [Primary Care Provider] - Coding Level of Care Code ED Sweet Potato Disintegrator for Chg Fwd Exam Comprehensive
--- NOTE | 2020-11-03 16:14 | PC.PHAR ---
PT STATES HIS TAKES CARE OF HIS MEDICATIONS-[facility] THE LEVETIRACETAM 750MG BID PTS STATES SHE THINKS THE PT IS STILL TAKING THAT MEDICATION-PTS [facility] HAS 10MEQ BID AND 20MEQ TAKE 10MEQ DAILY OF KCL PTS STATES THE PT IS TAKING 10MEQ BID-PTS STATES THE PT IS ON THE TAPER DOSE OF 60MG DAILY OF PREDNISONE-PTS STATES THE PTS METOPROLOL ER 25MG AND IRON 325MG WAS DCED [facility] HAS IT MEDICATION ALSO-
[2020-11-03] MEDS: FUROsemide 10 mg/mL SDV 10mL 80 MG IVP (16:35)
[2020-11-03 16:58] LABS: Basophils % 0.1 %; Hemoglobin 7.7 g/dL (11.7-16.6); Lymphocytes # 0.6 10^3/uL (0.8-4.8); Lymphocytes % 5.1 %; Mean Corpuscular HGB Conc 32.1 g/dL (30.0-36.0); Mean Corpuscular Hemoglobin 34.2 pg (28.0-34.0); Mean Corpuscular Volume 106.7 fL (80-94); Mean Platelet Volume 10.7 fL (7.4-10.4); Monocytes # 0.8 10^3/uL (0.2-0.9); Monocytes % 6.6 %; Neutrophils # 9.89 10^3/uL (1.8-7.7); Neutrophils % 86.3 %; Nucleated Red Blood Cells % 0 %; Partial Thromboplastin Time 29.8 SECONDS (23.9-36.7); Platelet Count 112 10^3/cmm (130-400); Red Blood Count 2.25 10^6/uL (4.1-5.3); Red Cell Distribution Width 15.4 % (12.1-15.1); White Blood Count 11.5 10^3/uL (4.0-10.0)
[2020-11-03 17:01] LABS: D Dimer 1.87 ug/mIFEU (0-0.59)
--- NOTE | 2020-11-03 17:17 | ECG_ITS ---
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 Measurements Intervals [place] Rate: 75 P: 85 HI: 267 QRS: 64 QRSD: 76 T: 56 QT: 382 QTc: 427 Interpretive Statements SINUS RHYTHM WITH FIRST DEGREE AV BLOCK Compared to ECG 10/22/2020 01:05:52 Prolonged QT interval no longer present Electronically Signed On 11-03-2020 18:39:39 CDT by Sintia Chapman M.D. [id number]
[2020-11-03 17:20] LABS: SARS Covid-2 Antigen Negative (Negative)
[2020-11-03 17:26] LABS: Add Urine Microscopic? YES; Blood Urine 2+ (Negative); Glucose Urine UA Norm (Normal); Ketones Urine Negative (Negative); Leukocyte Esterase Urine Trace (Negative); Nitrate Urine Negative (Negative); Protein Urine Neg (Negative); Urine Appearance Hazy (CLEAR); Urine Color Yellow (Yellow); Urobilinogen Urine Norm (Negative); pH Urine 6 (5-7)
[2020-11-03 17:35] LABS: RBC Urine 25-40 /hpf (0-2)
[2020-11-03 17:36] LABS: Add Urine Culture? Yes; Bacteria Urine 1+ /hpf; Squamous Epithelial Cell Urine 0-4 /hpf (0-5); WBC Urine 15-25 /hpf (0-5)
[2020-11-03 17:44] LABS: Lactic Sepsis W/Reflex 1.6 mmol/L (0.5-2.2); Troponin(5th) Baseline 51 ng/L (0-15)
[2020-11-03 17:51] LABS: Alanine Aminotransferase 59 U/L (0-41); Albumin Level 2.9 g/dL (3.5-5.2); Alkaline Phosphatase 93 IU/L (40-130); Anion Gap 11.7 (5-19); Aspartate Amino Transferase 76 U/L (0-40); Blood Urea Nitrogen 34 mg/dL (8-23); Calcium 7.8 mg/dL (8.5-10.5); Carbon Dioxide 24 mmol/L (22-29); Chloride 92 mmol/L (98-107); Globulin 3.1 g/dL (1.3-4.6); Glucose 110 mg/dL (65-115); NT Pro B Type Natriuretic Pept 1432 pg/mL (0-125); Osmolality Calculated 262 mOsm/kg (285-295); Potassium 5.7 mmol/L (3.5-5.1); Sodium 122 mmol/L (136-145); Total Bilirubin 5.4 mg/dL (0.15-1.2)
[2020-11-03 18:46] LABS: Troponin 5 2HR 51.07 ng/L (0-15); Troponin 5 2HR Delta 0.07 ABS# (0-10)
--- NOTE | 2020-11-03 19:46 | P.HP_ITS ---
Providers/Chief Complaint Primary Care Provider: Jessica Moreira MD Chief Complaint: CP, BLE SWELLING, SENT BY DR BROWNING History of Present Illness Blayne Martinez is a 75 year old male multiple comorbid conditions dementia, liver cirrhosis(takes spironolactone 25mgand Lasix 40 mg twice a day) hemochromatosis, portal hypertension, chronic thrombocytopenia, A. fib RVR on Eliquis, moderate aortic stenosis duodenal ulcer, was discharged on 10/26 for management of orthostatic symptoms, he was given steroids when work-up of hyperbilirubinemia was done which revealed autoimmune hemolytic anemia(low haptoglobin, high LDH flow cytometry was sent for possible leukemia, B12 folic acid normal, peripheral smear showed macrocytosis), presented today from Dr. Shukla's clinic because of worsening edema. Patient is stating that today he had a follow-up appointment with Dr. Shukla today. He recommended him to stop taking steroids and go to the ER because of exacerbation of fluid overload. At home he has been watching his sodium intake and drinks only 1.5 L of fluid on daily basis, he is endorsing shortness of breath on exertion, orthopnea, PND excessive weight gain in the last 1 to 2 weeks despite taking Lasix 40 mg twice a day and spironolactone. Is also endorsing chest discomfort which he mostly feels on the right side, his symptoms resolve at rest. No recent syncopal event however endorsing presyncopal symptoms. Diagnosis in the ER revealed anemia,, cytopenia, hyponatremia, abnormal coagulation profile, high BNP, fluid overloaded, hyperkalemia, bilirubin 5.4, no signs of UTI however abnormal UA noted chest x-ray consistent with pulmonary vascular congestion, he received 80 mg of IV Lasix in the ER Review of Systems Const: Reports: body aches, change in appetite, change in weight, fatigue and malaise; Denies: fever(s) or chills Eyes: Denies: change in vision ENMT: Denies: throat pain Card: Reports: chest pain, palpitations, swelling of feet/ankles, lightheadedness, pre-syncope, dyspnea on exertion and orthopnea Resp: Reports: dyspnea GI: Denies: abdominal pain or diarrhea : Denies: flank pain Musc: Denies: neck pain Skin/Breast: Reports: lesions Neuro: Denies: headache(s) Psych: Denies: anxiety Endo: Denies: polyuria Shai/Lymph: Denies: easy bruising All/Imm: Denies: urticaria Medications/Allergies Home Medications Medication Instructions Recorded Confirmed Last Taken Type albuterol sulfate 90 mcg/actuation 2 puff INHALATION Q6H PRN 06/17/19 11/03/20 Unknown History aerosol inhaler pantoprazole 40 mg tablet,delayed 40 mg PO DAILY@08 tab 06/17/19 11/03/20 11/03/20 08:30 History release levetiracetam 750 mg tablet 750 mg PO BID@08,17 06/18/19 11/03/20 11/03/20 08:30 History pravastatin 20 mg tablet 10 mg PO DAILY@17 tab 06/18/19 11/03/20 11/02/20 History folic acid 1 mg PO DAILY@08 12/31/19 11/03/20 11/03/20 08:30 History apixaban 5 mg tablet 2.5 mg PO BID@,17 tab 04/20/20 11/03/20 11/03/20 08:30 History cholecalciferol (vitamin D3) 3,000 unit PO DAILY@08 08/16/20 11/03/20 11/03/20 08:30 History [Vitamin D3] lactulose 45 ml PO TID@08,11,14 08/16/20 11/03/20 11/03/20 08:30 History spironolactone 25 mg PO DAILY@08 08/16/20 11/03/20 11/03/20 08:30 History cyclobenzaprine 5 mg tablet 5 mg PO BID PRN tab 08/26/20 11/03/20 Unknown History potassium chloride 10 mEq 10 meq PO BID tab 10/09/20 11/03/20 11/03/20 08:30 History tablet,extended release Xifaxan 550 mg PO BID@0800,1700 10/21/20 11/03/20 11/03/20 08:30 History B cmplx 4-vit F1-M-gwopp-zinc 1 tab PO DAILY #30 tab 10/26/20 11/03/20 11/03/20 08:30 Rx furosemide 40 mg PO BID@08,14 10 Days #0 tab 10/26/20 11/03/20 11/03/20 08:30 Rx prednisone See Taper PO DAILY #120 tab 10/26/20 11/03/20 11/03/20 08:30 Rx 60 MG budesonide-formoterol [Symbicort] 2 puff INHALATION BID 11/03/20 11/03/20 Unknown History omega-3 fatty acids [Fish Oil] 1,000 mg PO BID 11/03/20 11/03/20 11/03/20 08:30 History Allergies Allergy/AdvReac Type Severity Reaction Status Date / Time No Known Allergies Allergy Verified 11/03/20 16:02 PFSH Acute PFSH: Medical History AAA (abdominal aortic aneurysm) 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 Atrial fibrillation On Eliquis BPH (benign prostatic hyperplasia) Carotid artery stenosis Diverticulosis Duodenal ulcer Gastritis Hemochromatosis Hemochromatosis Hiatal hernia History of colon polyps Follow-up colonoscopy in 2023 HTN (hypertension) Hyperlipidemia Internal hemorrhoids Liver, cirrhosis, portal Portal hypertension S/P ORIF (open reduction internal fixation) fracture RIGHT HIP Status post placement of implantable loop recorder TIA (transient ischemic attack) UTI (urinary tract infection) Surgical History History of cystoscopy History of esophagogastroduodenoscopy (EGD) History of vasectomy S/P discectomy Status post colonoscopy with polypectomy Family History Mother Stroke Brother Ddmra-6-etrhuawbywd deficiency Denies family history of Anesthesia complication Bleeding disorder Social History Smoking and tobacco status: never smoked Alcohol intake: never Household members: spouse Marital status: Current occupational status: retired Vitals/I&O/Wt Last Vital Signs Temp 98.2 F 11/03/20 14:24 Pulse 75 11/03/20 19:17 Resp 26 H 11/03/20 19:17 BP 131/64 11/03/20 19:17 Pulse Ox 97 11/03/20 19:17 Weight last 48 hrs Weight 123.831 kg Physical Exam Narrative: EXAM NARRATIVE: elderly male appears stated age Was in semi-Saenz position when entered the room was saturating well on room air with normal hemodynamics No active distress chest pain or shortness of breath Systolic murmur variable S1-S2 with active signs of heart failure Generalized anasarca Abdomen distended nontender Lower extremity 3+ pitting edema bilaterally no active sign of cellulitis No active signs of gangrene or ischemia EOMI, PERRLA No signs of hepatic encephalopathy Appropriate mood and affect at the bedside Data : 11/03/20 16:35 11/03/20 16:35 A&P Assessment and plan (1) Anasarca: Status: Acute (2) Hyperbilirubinemia: Status: Acute (3) Generalized weakness: Status: Acute (4) Aortic stenosis: Status: Acute Qualifiers: Cardiac valve disease etiology: nonrheumatic Qualified Code(s): I35.0 - Nonrheumatic aortic (valve) stenosis (5) Liver, cirrhosis, portal: Status: Acute (6) Atrial fibrillation: Status: Acute Qualifiers: Atrial fibrillation type: unspecified chronic Qualified Code(s): I48.20 - Chronic atrial fibrillation, unspecified (7) Hyperkalemia: Status: Acute Additional A&P Information Anasarca Liver cirrhosis with underlying CHF exacerbation No active signs of hepatic encephalopathy Patient has been compliant with his Lasix 40 mg twice a day, spironolactone 25 mg daily, low-sodium diet and 1.5 L of fluid intake, he has moderate aortic stenosis, takes lactulose and rifaximin on daily basis Despite all of these measures patient is gaining weight, low albumin detected I will discontinue spironolactone and potassium supplementation due to hyperkalemia and use Bumex for now, judicious use of diuretics considering moderate aortic stenosis Considering his symptoms of chest pain, shortness of breath and presyncopal events he will need evaluation for aortic valve replacement especially considering hemolytic anemia which could be due to aortic stenosis, recently he finished steroid taper for possibility of autoimmune hemolytic anemia when low haptoglobin and high LDH were detected, Dr. Shukla recommended discontinuing steroids, patient is denying active GI bleed he takes Eliquis for his A. fib I would not repeat echo at this time Patient is willing to go to [facility] if he gets accepted by cardiology for evaluation of aortic valve replacement, will try to diurese him and obtain euvolemic status during this hospitalization Cardiac diet DVT prophylaxis not indicated CODE STATUS: Discussed with the patient and his he wants a trial of CPR or intubation but does not want to stay on mechanical ventilator for prolonged period of time if there is no meaningful recovery Attestations Medical Necessity Statement*: Anticipating discharge within 48 hours, will need diuresis for CHF exacerbation anasarca and liver cirrhosis symptomatic aortic stenosis Time Spent in Patient Care: 35mins Coding Level of Care Code Acute Electronic Publisher for [facility] Diagnoses Anasarca R60.1 Hyperbilirubinemia E80.6 Generalized weakness R53.1 Aortic stenosis I35.0 Cardiac valve disease etiology: nonrheumatic Liver, cirrhosis, portal K74.69 Atrial fibrillation I48.20 Atrial fibrillation type: unspecified chronic Hyperkalemia E87.5
--- NOTE | 2020-11-03 21:17 | ECG_ITS ---
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 Measurements Intervals [place] Rate: 74 P: 80 [place]: 250 QRS: 57 QRSD: 74 T: 45 QT: 400 QTc: 446 Interpretive Statements SINUS RHYTHM WITH FIRST DEGREE AV BLOCK Compared to ECG 11/03/2020 17:59:05 No significant changes Electronically Signed On 11-03-2020 23:11:01 CDT by Sintia Chapman M.D. [id number]
[2020-11-03 23:04] LABS: Troponin 5 6HR 48.67 ng/L (0-15)
[2020-11-03 23:06] LABS: Troponin 5 6HR Delta -2.33 ng/L (0-12)
[2020-11-03 23:07] LABS: Ammonia 17 umol/L (16-60)
[2020-11-04] VITALS (13 sets, daily range): BP systolic 114–150; BP diastolic 60–76; PULSE 70–97; RESP 12–22; TEMP 36.3–36.8; O2SAT 93–100
[2020-11-04] MEDS: zolpidem 5 mg Tablet PO ×2 (01:28→21:30)
[2020-11-04 06:51] LABS: Basophils % 0.1 %; Eosinophils % 0.3 %; Hemoglobin 7.4 g/dL (11.7-16.6); Lymphocytes # 1.6 10^3/uL (0.8-4.8); Lymphocytes % 13.2 %; Mean Corpuscular HGB Conc 32.2 g/dL (30.0-36.0); Mean Corpuscular Hemoglobin 34.6 pg (28.0-34.0); Mean Corpuscular Volume 107.5 fL (80-94); Mean Platelet Volume 10.3 fL (7.4-10.4); Monocytes # 1.4 10^3/uL (0.2-0.9); Monocytes % 12.1 %; Neutrophils # 8.48 10^3/uL (1.8-7.7); Neutrophils % 72.4 %; Nucleated Red Blood Cells % 0 %; Platelet Count 113 10^3/cmm (130-400); Red Blood Count 2.14 10^6/uL (4.1-5.3); Red Cell Distribution Width 15.7 % (12.1-15.1); White Blood Count 11.7 10^3/uL (4.0-10.0)
[2020-11-04 07:22] LABS: Alanine Aminotransferase 52 U/L (0-41); Albumin Level 2.7 g/dL (3.5-5.2); Alkaline Phosphatase 82 IU/L (40-130); Anion Gap 9.9 (5-19); Aspartate Amino Transferase 62 U/L (0-40); Blood Urea Nitrogen 39 mg/dL (8-23); Carbon Dioxide 25 mmol/L (22-29); Chloride 96 mmol/L (98-107); Globulin 2.9 g/dL (1.3-4.6); Glucose 95 mg/dL (65-115); Osmolality Calculated 271 mOsm/kg (285-295); Potassium 4.9 mmol/L (3.5-5.1); Sodium 126 mmol/L (136-145); Total Bilirubin 5.8 mg/dL (0.15-1.2); Total Protein 5.6 g/dL (6.6-8.7)
[2020-11-04] MEDS: folic acid 1 mg Tablet PO (09:11)
[2020-11-04] MEDS: apixaban 5 mg Tablet 2.5 MG PO ×2 (09:11→16:22)
[2020-11-04] MEDS: bumetanide 1 mg Tablet PO (09:12)
[2020-11-04] MEDS: levETIRAcetam 500 mg Tablet 750 MG PO ×2 (09:12→16:22)
[2020-11-04] MEDS: lactulose oral liq 20 gm/30 mL UDC 45 GM PO ×2 (09:12→16:22)
[2020-11-04] MEDS: pantoprazole DR 40 mg Tablet PO (09:12)
--- NOTE | 2020-11-04 10:02 | PC.CHAP ---
Pastoral Care Encounter/Spiritual Assessment Type of Contact [] Declined meter shop supervisor visit [] Patient/Family/Request visit [] Outpatient visit [] Follow-up visit [] Physician referral [] Code/Alert [x] Routine visit [] Staff referral [] Actively dying [] Patient sleeping [] Family support [] [] Out of room [] Palliative care [] [] Receiving care in room [] Pre-surgical visit [] Trauma [] Long length of stay [] ICU visit [] Other: Relational/Emotional Strength [x] Patient feels connected with others/family/visitors/staff [] Distress [] Loneliness/isolation [] Abandonment Spirituality of Patient [] Person of Shahnaz [] Attends Jewish of their Shahnaz [x] Believes in Prayer [] Reads Bible or Holiness materials [] There are Spiritual issues to be addressed Swing Grinder Interventions x[] Prayer [] Active listening [] Non-anxious presence [] Spiritual/emotional support [] Crisis/trauma care [] Spiritual counseling [] Bereavement support [] Provided bereavement packet [] Provided Bible/devotional materials [] Provided toy/stuffed animal, coloring book to patient or family member [] Provided Communion [] Anointing/[place] [] Salvation [x] Completed spiritual assessment [] Other: Impact on Illness or Injury [] Angry [] Fearful [] Anxious [] Often cries [] Exhaustion [] Unable to work [] Unable to attend sikhism [] Unable to walk/stand [] Unable to read [] Unable to drive [] Unable to eat/drink [] Unable to sleep [] Unable to be with family [] Patient intubated [] Other: Summary Time spent with patient 10 min
--- NOTE | 2020-11-04 11:49 | PC.NURSE ---
Rcvd verbal order from Dr Tellez to change PO Bumex to 1mg IV Bumex BID. mortgage underwriter put order in.
--- NOTE | 2020-11-04 11:54 | PM.PN ---
Subjective Subjective: Interval history: Patient was seen and examined this morning,was complaining of SOB as well as worsening B/L L/E Swelling. Vitals and labs have been reviewed. Vitals/I&O/Wt Last Vital Signs Temp 98.2 F 11/04/20 11:24 Pulse 85 11/04/20 11:24 Resp 15 11/04/20 11:24 BP 140/60 11/04/20 11:24 Pulse Ox 99 11/04/20 11:24 11/03/20 11/04/20 11/04/20 22:59 06:59 14:59 Intake Total 120 / 120 360 / 360 Output Total 100 / 100 150 / 150 Balance 210 / 210 Weight last 48 hrs Weight 123.831 kg Physical Exam Const: COMMON NORMALS: patient oriented x3 HENMT: COMMON NORMALS: normocephalic and atraumatic HEAD & SCALP: normocephalic and atraumatic Resp: EFFORT & INSPECTION: Yes symmetric chest movement OTHER: B/L Basal crackles present in both lungs leger. Cardio: COMMON NORMALS: regular rate, regular rhythm, S1 normal heart sound present, S2 normal heart sound present, No gallops present (Cardio), No murmurs present (Cardio), No rub (Cardio) and Peripheral pulses 2+ throughout RATE: regular rate RHYTHM: regular rhythm HEART SOUNDS: S1 normal heart sound present and S2 normal heart sound present PERIPHERAL PULSES: Peripheral pulses 2+ throughout GI: COMMON NORMALS: Normal to inspection, nondistended, normoactive bowel sounds present, Soft to palpation, non-tender, No hepatosplenomegaly present and no masses AUSCULTATION: Yes normoactive bowel sounds PALPATION: Yes Soft to palpation and Yes No hepatosplenomegaly present RECTAL EXAM: Yes deferred Extremity: NARRATIVE EXTREMITY EXAM: 4 + B/L Pitting Edema Present in both lower extremity upto to mid l/e Neuro: COMMON NORMALS: patient oriented x3 Data : 11/04/20 06:41 11/04/20 06:41 A&P Assessment and plan (1) Heart failure, chronic, with acute decompensation: Ac on chronic Decompensated HFpEF BIMUEX 1 MG Q12 H Daily I/O Charting Daily Weight K>4 ,Mg >2 Status: Acute Qualifiers: Heart failure type: unspecified Qualified Code(s): I50.9 - Heart failure, unspecified (2) Anasarca: Status: Acute (3) Hyperbilirubinemia: Likely 2/2 to Congestive Hepatopathy r/o other causes Monitor T.Bili Trend Direct Bili LDH Hapto Status: Acute (4) Generalized weakness: Status: Acute (5) Aortic stenosis: Mild to moderate aortic valve stenosis with a valve area of 1.4 Peak velocity of 2.6 m/s with a peak gradient of 27 and a mean gradient of 13 mmHg. Status: Acute Qualifiers: Cardiac valve disease etiology: nonrheumatic Qualified Code(s): I35.0 - Nonrheumatic aortic (valve) stenosis (6) Liver, cirrhosis, portal: Continue Lactulose Continue Rifxamin 550 mg po BID Status: Acute (7) Atrial fibrillation: Currently Rate Controlled On Low dose Eliquis 2/5 mg q12 h daily Status: Acute Qualifiers: Atrial fibrillation type: unspecified chronic Qualified Code(s): I48.20 - Chronic atrial fibrillation, unspecified (8) Hyperkalemia: Resolved Monitor BMP Status: Acute (9) Seizure: Continue Keppra 750 mg PO BID Status: Acute Additional A&P Information Anasarca Liver cirrhosis with underlying CHF exacerbation No active signs of hepatic encephalopathy Patient has been compliant with his Lasix 40 mg twice a day, spironolactone 25 mg daily, low-sodium diet and 1.5 L of fluid intake, he has moderate aortic stenosis, takes lactulose and rifaximin on daily basis Despite all of these measures patient is gaining weight, low albumin detected I will discontinue spironolactone and potassium supplementation due to hyperkalemia and use Bumex for now, judicious use of diuretics considering moderate aortic stenosis Considering his symptoms of chest pain, shortness of breath and presyncopal events he will need evaluation for aortic valve replacement especially considering hemolytic anemia which could be due to aortic stenosis, recently he finished steroid taper for possibility of autoimmune hemolytic anemia when low haptoglobin and high LDH were detected, Dr. Shukla recommended discontinuing steroids, patient is denying active GI bleed he takes Eliquis for his A. fib I would not repeat echo at this time Patient is willing to go to [facility] if he gets accepted by cardiology for evaluation of aortic valve replacement, will try to diurese him and obtain euvolemic status during this hospitalization Cardiac diet DVT prophylaxis not indicated CODE STATUS: Discussed with the patient and his he wants a trial of CPR or intubation but does not want to stay on mechanical ventilator for prolonged period of time if there is no meaningful recovery Attestations Medical Necessity Statement*: Patient needs to be in hospital for the management of Heart Failure. 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
--- NOTE | 2020-11-04 16:14 | PC.NURSE ---
Called Cattle Farmer for CSU bed per Dr. Tellez.
[2020-11-04] MEDS: bumetanide 0.25 mg/mL SDV 4 mL 1 MG IV (16:22)
--- NOTE | 2020-11-04 16:31 | PC.NURSE ---
per Dr Tellez insert barnard and give Bumex now.
[2020-11-04] MEDS: ipratropium-albuterol 3 mL Neb INHALATION (20:57)
--- NOTE | 2020-11-04 23:20 | PC.NURSE ---
Pt transferred to U at 2100.
[2020-11-05] VITALS (27 sets, daily range): BP systolic 100–118; BP diastolic 50–67; PULSE 77–108; RESP 12–23; TEMP 36.4–36.9; O2SAT 96–100
[2020-11-05] MEDS: ipratropium-albuterol 3 mL Neb INHALATION ×7 (00:21→23:28)
[2020-11-05 05:46] LABS: Basophils % 0.1 %; Eosinophils # 0.1 10^3/uL (0.0-0.8); Eosinophils % 0.9 %; Hematocrit 23.2 % (42.0-52.0); Hemoglobin 7.6 g/dL (11.7-16.6); Lymphocytes % 9.6 %; Mean Corpuscular HGB Conc 32.8 g/dL (30.0-36.0); Mean Corpuscular Hemoglobin 34.4 pg (28.0-34.0); Mean Platelet Volume 10.1 fL (7.4-10.4); Monocytes # 1.2 10^3/uL (0.2-0.9); Monocytes % 12.4 %; Neutrophils # 7.47 10^3/uL (1.8-7.7); Neutrophils % 75.3 %; Nucleated Red Blood Cells % 0.2 %; Platelet Count 101 10^3/cmm (130-400); Red Blood Count 2.21 10^6/uL (4.1-5.3); Red Cell Distribution Width 15.9 % (12.1-15.1); White Blood Count 9.9 10^3/uL (4.0-10.0)
[2020-11-05 06:05] LABS: Alanine Aminotransferase 62 U/L (0-41); Albumin Level 2.6 g/dL (3.5-5.2); Alkaline Phosphatase 99 IU/L (40-130); Anion Gap 12.1 (5-19); Aspartate Amino Transferase 77 U/L (0-40); Blood Urea Nitrogen 36 mg/dL (8-23); Carbon Dioxide 29 mmol/L (22-29); Chloride 92 mmol/L (98-107); Globulin 2.9 g/dL (1.3-4.6); Glucose 131 mg/dL (65-115); Lactate Dehydrogenase 327 U/L (135-225); Osmolality Calculated 278 mOsm/kg (285-295); Potassium 4.1 mmol/L (3.5-5.1); Sodium 129 mmol/L (136-145); Total Bilirubin 4.7 mg/dL (0.15-1.2); Total Protein 5.5 g/dL (6.6-8.7)
[2020-11-05] MEDS: bumetanide 0.25 mg/mL SDV 4 mL 2 MG IV ×2 (08:39→18:31)
[2020-11-05] MEDS: levETIRAcetam 500 mg Tablet 750 MG PO ×2 (08:41→17:33)
[2020-11-05] MEDS: apixaban 5 mg Tablet 2.5 MG PO (08:41)
[2020-11-05] MEDS: pantoprazole DR 40 mg Tablet PO (08:41)
[2020-11-05] MEDS: folic acid 1 mg Tablet PO (08:41)
[2020-11-05] MEDS: lactulose oral liq 20 gm/30 mL UDC 45 GM PO ×2 (08:42→17:34)
--- NOTE | 2020-11-05 12:46 | ECG_ITS ---
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 Measurements Intervals Eldred Rate: 110 P: [place]: QRS: 64 QRSD: 88 T: -84 QT: 340 QTc: 460 Interpretive Statements ATRIAL FIBRILLATION WITH RAPID VENTRICULAR RESPONSE ST DEVIATION AND MODERATE T-WAVE ABNORMALITY, CONSIDER ANTERIOR ISCHEMIA [-0.1+ mV T WAVE IN V3/V4] Compared to ECG 11/03/2020 20:54:45 T-wave abnormality now present Possible ischemia now present Sinus rhythm no longer present First degree AV block no longer present Electronically Signed On 11-05-2020 15:40:27 CDT by Sintia Chapman M.D. [id number]
[2020-11-05] MEDS: nitroglycerin 0.4 mg sublingual Tablet SUBLINGUAL (13:00)
--- NOTE | 2020-11-05 13:31 | USCV_ITS ---
Blayne Martinez Age: 75 Gender: M : 1945 Exam Date: 11/05/2020 14:08 Ordering Phys: Manav Tellez MD Technologist: DON [place] [facility] [place]: Chest pain BP: 116 / 60 HR: 95 Rhythm: Sinus Technical Quality: Fair MEASUREMENTS (Male / Female) Normal Values 2D ECHO LV Diastolic Diameter PLAX 3.2 cm 4.2 - 5.9 / 3.9 - 5.3 cm LV Systolic Diameter PLAX 2.0 cm LV Chamber Size 4.2 cm IVS Diastolic Thickness 2.1 cm 0.6 - 1.0 / 0.6 - 0.9 cm IVS Systolic Thickness 1.9 cm LVPW Diastolic Thickness 1.1 cm 0.6 - 1.0 / 0.6 - 0.9 cm LVPW Systolic Thickness 1.4 cm RV Chamber Size 3.5 cm LVOT Diameter 2.1 cm LV Ejection Fraction 2D Teich 69.7 % LV Ejection Fraction MOD 2C 71.1 % LV Ejection Fraction 2C AL 72.8 % LA Diameter 3.1 cm LA Width 2.4 cm LA Height 6.3 cm RA Width 3.1 cm RA Height 6.0 cm Aorta at Sinotubular Diameter 3.1 cm M-MODE LV Diastolic Diameter MM 5.1 cm 4.2 - 5.9 / 3.9 - 5.3 cm LV Systolic Diameter MM 3.1 cm LV Ejection Fraction MM Teich 68.7 % IVS Diastolic Thickness MM 1.4 cm 0.6 - 1.0 / 0.6 - 0.9 cm IVS Systolic Thickness MM 2.4 cm LVPW Diastolic Thickness MM 1.7 cm 0.6 - 1.0 / 0.6 - 0.9 cm LVPW Systolic Thickness MM 1.8 cm Aortic Annulus Diameter 3.9 cm LA Ao Ratio MM 1.0 MV E Point Septal Separation 0.2 cm DOPPLER AV Peak Velocity 257.0 cm/s LVOT Peak Velocity 169.0 cm/s AV Area Cont Eq vti 2.6 cm squared AV Area Cont Eq pk 2.3 cm squared MV Area PHT 3.9 cm squared MV E' Velocity 165.0 cm/s TR Peak Velocity 273.0 cm/s TR Peak Gradient 29.8 mmHg TV Peak E Velocity 57.0 cm/s Right Atrial Pressure 8.0 mmHg Pulmonary Artery Systolic Pressu 37.8 mmHg PV Peak Velocity 118.0 cm/s RV Acceleration Time 0.1 s RV Ejection Time 0.2 s RV AcT/ET 0.4 FINDINGS Left Ventricle Normal left ventricular size and systolic function with no regional wall motion abnormalities. Left ventricular ejection fraction is estimated at 70%. Rhythm precludes evaluation of diastolic function. Right Ventricle Normal right ventricular size and systolic function. Right ventricular systolic pressure 37.8 mmHg. Right Atrium Normal right atrial size. Right atrial pressure estimated at 8 mmHg. Left Atrium Mildly increased left atrial size. Mitral Valve Moderate mitral annular calcification. Trace mitral valve regurgitation. Aortic Valve Moderately thickened and calcified trileaflet aortic valve. Mild aortic valve stenosis, peak velocity 2.6 m/s, mean gradient 13.2 mmHg, KAIA 2.6 cm squared. No aortic valve regurgitation. Tricuspid Valve Structurally normal tricuspid valve. Mild tricuspid valve regurgitation. Pulmonic Valve Pulmonic valve not well visualized. No pulmonary valve stenosis. Pericardium No pericardial effusion. Aorta Normal-sized aortic root. Upper normal sized inferior vena cava with decreased respiratory variations. CONCLUSIONS 1. Normal left ventricular size and systolic function with no regional wall motion abnormalities. Left ventricular ejection fraction is estimated at 70%. 2. Normal right ventricular size and systolic function. 3. Mild aortic valve stenosis, peak velocity 2.6 m/s, mean gradient 13.2 mmHg, KAIA 2.6 cm squared. 4. Mild tricuspid valve regurgitation. 5. Pulmonary artery pressure estimated at 38 mmHg. Sintia Chapman MD (Electronically Signed) Final Date: 06 Nov 2020 09:31 S
--- NOTE | 2020-11-05 13:48 | PM.CONSULT ---
Providers/Reason For Consult Consulting Physician/Specialty*: Dr. Chapman, Cardiology Reason for Consult*: Chest pain, decompensated CHF Attending Physician: Manav Tellez MD Primary Care Provider: Jessica Moreira MD History of Present Illness History of Present Illness Blayne Martinez is a 75 year old male with PMHx of syncopal epiosdes s/p ILR implantation on 11/20/17. He also has h/o iron overload hemochromatosis, s/p regular phlebotomies in past, liver cirrhosis, chronic anemia, thrombocytopenia, HLD, BPH and paroxysmal atrial fibrillation with RVR. He has h/o GI bleed with EGD showing large ulcer in 2019. Colonoscopy showed 5 mm sessile polyp in descending colon. He also has 3.3 cm infrarenal abdominal aortic aneurysm, h/o hepatic encephalopathy and h/o epistaxis. He has had recurrent hospitalization with CHF. He was recently started on steroid for AIHA. He was readmitted with significant edema, chest pain and SOB. He has gain >20 lb in few days. He was started on albumin and diuretics. At the time of evaluation, patient complains of sharp/heaviness chest pain with somewhat pleuritic quality. Similar episodes of chest pain and SOB with exertion per patient. Review of Systems Const: Reports: body aches, change in appetite, change in weight, fatigue and malaise; Denies: fever(s) or chills Eyes: Denies: change in vision ENMT: Denies: throat pain Card: Reports: chest pain, palpitations, swelling of feet/ankles, lightheadedness, pre-syncope, dyspnea on exertion and orthopnea Resp: Reports: dyspnea GI: Denies: abdominal pain, diarrhea, hematochezia or melena : Denies: flank pain or hematuria Musc: Denies: neck pain Skin/Breast: Reports: lesions Neuro: Denies: headache(s) Psych: Denies: anxiety or depression Endo: Denies: polyuria Shai/Lymph: Denies: easy bruising All/Imm: Denies: urticaria Meds/Allergies Home Medications and Allergies Home Medications Medication Instructions Recorded Confirmed Last Taken Type albuterol sulfate 90 mcg/actuation 2 puff INHALATION Q6H PRN 06/17/19 11/03/20 Unknown History aerosol inhaler pantoprazole 40 mg tablet,delayed 40 mg PO DAILY@08 tab 06/17/19 11/03/20 11/03/20 08:30 History release levetiracetam 750 mg tablet 750 mg PO BID@08,17 06/18/19 11/03/20 11/03/20 08:30 History pravastatin 20 mg tablet 10 mg PO DAILY@17 tab 06/18/19 11/03/20 11/02/20 History folic acid 1 mg PO DAILY@08 12/31/19 11/03/20 11/03/20 08:30 History apixaban 5 mg tablet 2.5 mg PO BID@08,17 tab 04/20/20 11/03/20 11/03/20 08:30 History cholecalciferol (vitamin D3) 3,000 unit PO DAILY@08 08/16/20 11/03/20 11/03/20 08:30 History [Vitamin D3] lactulose 45 ml PO TID@08,,08/16/20 11/03/20 11/03/20 08:30 History spironolactone 25 mg PO DAILY@08 08/16/20 11/03/20 11/03/20 08:30 History cyclobenzaprine 5 mg tablet 5 mg PO BID PRN tab 08/26/20 11/03/20 Unknown History potassium chloride 10 mEq 10 meq PO BID tab 10/09/20 11/03/20 11/03/20 08:30 History tablet,extended release Xifaxan 550 mg PO BID@0800,1700 10/21/20 11/03/20 11/03/20 08:30 History B cmplx 4-vit [id number]-Z-vyuma-zinc 1 tab PO DAILY #30 tab 10/26/20 11/03/20 11/03/20 08:30 Rx furosemide 40 mg PO BID@08,14 10 Days #0 tab 10/26/20 11/03/20 11/03/20 08:30 Rx prednisone See Taper PO DAILY #120 tab 10/26/20 11/03/20 11/03/20 08:30 Rx 60 MG budesonide-formoterol [Symbicort] 2 puff INHALATION BID 11/03/20 11/03/20 Unknown History omega-3 fatty acids [Fish Oil] 1,000 mg PO BID 11/03/20 11/03/20 11/03/20 08:30 History Allergies Allergy/AdvReac Type Severity Reaction Status Date / Time No Known Allergies Allergy Verified 11/03/20 16:02 Current Medications Current Medications Generic Name Dose Route Start Last Admin Trade Name Freq PRN Reason Stop Dose Admin Albuterol/Ipratropium 3 ml 11/04/20 20:00 11/05/20 12:23 Ipratropium-Albuterol 3 Ml Neb INHALATION 3 ml Q4H.RESPIRATORY DAMIAN Administration Bumetanide 2 mg 11/05/20 09:00 11/05/20 08:39 Bumetanide 0.25 Mg/Ml Sdv 4 Ml IV 2 mg BID DAMIAN Administration Folic Acid 1 mg 11/04/20 08:00 11/05/20 08:41 Folic Acid 1 Mg Tablet PO 1 mg DAILY@08 DAMIAN Administration Lactulose 45 gm 11/04/20 09:00 11/05/20 08:42 Lactulose Oral Liq 20 Gm/30 Ml Udc PO 45 gm BID DAMIAN Administration Levetiracetam 750 mg 11/04/20 08:00 11/05/20 08:41 Levetiracetam 500 Mg Tablet PO 750 mg BID@08,17 DAMIAN Administration Nitroglycerin 0.4 mg 11/05/20 12:52 11/05/20 13:00 Nitroglycerin 0.4 Mg Sublingual Tablet SUBLINGUAL 1 cap Q5M PRN Administration CHEST PAIN Pantoprazole Sodium 40 mg 11/04/20 08:00 11/05/20 08:[address] 40 Mg Tablet PO 40 mg DAILY@08 DAMIAN Administration Rifaximin 550 mg 11/04/20 08:00 11/05/20 09:37 Rifaximin 550 Mg Tablet PO 550 mg BID@0800,1700 DAMIAN Administration Protocol Fluticasone/Salmeterol 1 puff 11/04/20 20:00 11/05/20 08:07 Fluticasone-Salmeterol 250-50 Diskus INHALATION 1 puff BID.RESPIRATORY DAMIAN Administration PFSH Acute PFSH: Medical History AAA (abdominal aortic aneurysm) Ybcqk-[id number]-dpmrifaqhoz deficiency carrier Atrial fibrillation On Eliquis BPH (benign prostatic hyperplasia) Carotid artery stenosis Diverticulosis Duodenal ulcer Gastritis Hemochromatosis Hemochromatosis Hiatal hernia History of colon polyps Follow-up colonoscopy in 2023 HTN (hypertension) Hyperlipidemia Internal hemorrhoids Liver, cirrhosis, portal Portal hypertension S/P ORIF (open reduction internal fixation) fracture RIGHT HIP Status post placement of implantable loop recorder TIA (transient ischemic attack) UTI (urinary tract infection) Surgical History History of cystoscopy History of esophagogastroduodenoscopy (EGD) History of vasectomy S/P discectomy Status post colonoscopy with polypectomy Family History Mother Stroke Brother Qkdct-[id number] deficiency Denies family history of Anesthesia complication Bleeding disorder Social History Smoking and tobacco status: never smoked Alcohol intake: never Household members: spouse Marital status: Current occupational status: retired Vitals/I&O/Wt Last Vital Signs Temp 98.3 F 11/05/20 11:11 Pulse 103 H 11/05/20 12:31 Resp 18 11/05/20 12:24 BP 116/60 11/05/20 11:11 Pulse Ox 96 11/05/20 12:24 11/04/20 11/05/20 11/05/20 22:59 06:59 14:59 Intake Total 60 / 540 800 / 800 Output Total 1300 / 1450 850 / 2300 1350 / 1350 Balance -1300 / -970 -790 / -1760 -550 / -550 Weight last 48 hrs Weight 273 lb Physical Exam Narrative: EXAM NARRATIVE: Gen: obese man lying propped up in bed HEENT: EOMI, pallor+, No icterus RS: decreased breath sound at bases CVS: S1, S2 irregular. 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 Normal EKG response to LexiScan infusion. 2. No LexiScan induced chest pain or cardiac arrhythmia. 3. Normal blood pressure and heart rate response. 4. Sestamibi/sestamibi perfusion scan pending; see separate report. IMPRESSIONS 1. Myocardial perfusion imaging is normal. 2. Overall left ventricular systolic function is normal without regional wall motion abnormalities. 3. The left ventricular ejection fraction is normal with a value of 73%. 4. Normal EKG response to Lexiscan infusion. Refer to separate report for details. 5. Scan indicates low risk for cardiac events. 08/17/20 Procedure(s): CV echo complete* [id number] CONCLUSIONS Normal left ventricular size and systolic function, EF 60 %. Mild left ventricular hypertrophy. No regional wall motion abnormalities. Grade III/IV diastolic dysfunction (restrictive filling pattern), severely elevated filling pressures. Mild to moderate aortic valve stenosis with a valve area of 1.4 cm squared . Peak velocity of 2.6 m/s with a peak gradient of 27 and a mean gradient of 13 mmHg. Thickened mitral valve. Trace mitral valve regurgitation. Trace tricuspid valve regurgitation. There is no pericardial effusion. There are no intracardiac masses. Compared to the study from 12/22/2018, there is development of aortic valve stenosis and worsening of the LV diastolic function A&P Assessment and plan (1) Anasarca: Status: Acute (2) Heart failure, chronic, with acute decompensation: Diuresis per primary team Status: Acute Qualifiers: Heart failure type: unspecified Qualified Code(s): I50.9 - Heart failure, unspecified (3) Chest pain: Likely in setting of pulmonary congestion -ST-T wave changes noted in one EKG that reverted back to normal. -troponin flat. -f/u on echo. Status: Acute Qualifiers: Chest pain type: unspecified Qualified Code(s): R07.9 - Chest pain, unspecified (4) Atrial fibrillation: Status: Acute Qualifiers: Atrial fibrillation type: unspecified chronic Qualified Code(s): I48.20 - Chronic atrial fibrillation, unspecified Additional A&P Information Mild to moderate Thank you for allowing me to participate in patient's care. Please feel free to call with questions or concerns. 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
--- NOTE | 2020-11-05 13:50 | PC.NURSE ---
received call from Dr whitaker with telephone instructions to start patient on heparin gtt per protocol after base line PTT is obtained
--- NOTE | 2020-11-05 14:30 | PC.NURSE ---
Patient began experiencing cp at 1245. Pt rated cp 7/10. Physician was notified and STAT ECG was ordered. Received orders for Nitro SL. Nitro administered at 1300, VS placed for Q2min. BP at initial administration was 119/58, at 1304 BP as 80/71, at 1305 bp 78/38. Pt placed in reverse trendelenburg, at 1315 pt blood pressure recovered to 99/46. Patient reported chest pain improved to a 4/10.
[2020-11-05] MEDS: perflutren protein-a microsphr 0.22 mg/mL SDV 3 mL IV (14:34)
[2020-11-05] MEDS: metoprolol tartrate 25 mg Tablet 12.5 MG PO ×2 (14:37→20:50)
[2020-11-05] MEDS: aspirin 81 mg EC Tablet PO (14:37)
[2020-11-05] MEDS: acetaminophen 325 mg Tablet 650 MG PO (14:38)
[2020-11-05 14:44] LABS: Partial Thromboplastin Time 42.6 SECONDS (23.9-36.7)
--- NOTE | 2020-11-05 14:45 | ECG_ITS ---
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 Measurements Intervals [place] Rate: 99 P: [place]: QRS: 59 QRSD: 89 T: 44 QT: 372 QTc: 479 Interpretive Statements ATRIAL FIBRILLATION Compared to ECG 11/05/2020 12:50:51 T-wave abnormality no longer present Possible ischemia no longer present Electronically Signed On 11-05-2020 18:30:41 CDT by Sintia Chapman M.D. [email or web address] [email or web address] [email or web address] I/O/store/OM/[id number]
[2020-11-05 15:30] LABS: Troponin(5th) Baseline 54 ng/L (0-15)
[2020-11-05] MEDS: heparin drip 25,000 UNIT/500 ML PREMIX 35 UNIT IV (15:37)
--- NOTE | 2020-11-05 16:45 | ECG_ITS ---
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 Measurements Intervals [place] Rate: 86 P: [place]: QRS: 66 QRSD: 90 T: 47 QT: 401 QTc: 482 Interpretive Statements ATRIAL FIBRILLATION ABNORMAL RHYTHM ECG Compared to ECG 11/05/2020 15:46:49 No significant changes Electronically Signed On 11-05-2020 18:31:46 CDT by Sintia Chapman M.D. [id number]
--- NOTE | 2020-11-05 17:27 | PM.PN ---
Subjective Subjective: Interval history: Patient was seen and examined this morning, shortness of breath has improved, continues to make good urine output, Bumex dose has been increased to 2 mg IV every 12 hours daily, he has been started on albumin. Vitals/I&O/Wt Last Vital Signs Temp 98.3 F 11/05/20 11:11 Pulse 102 H 11/05/20 15:49 Resp 16 11/05/20 15:42 BP 101/59 11/05/20 14:46 Pulse Ox 96 11/05/20 15:42 11/05/20 11/05/20 11/05/20 06:59 14:59 22:59 Intake Total 60 / 540 800 / 800 340 / 1140 Output Total 850 / 2300 1350 / 1350 Balance -790 / -1760 -550 / -550 340 / -210 Physical Exam Const: COMMON NORMALS: patient oriented x3 HENMT: COMMON NORMALS: normocephalic and atraumatic HEAD & SCALP: normocephalic and atraumatic Resp: EFFORT & INSPECTION: Yes symmetric chest movement OTHER: B/L Basal crackles present in both lungs leger. Cardio: COMMON NORMALS: regular rate, regular rhythm, S1 normal heart sound present, S2 normal heart sound present, No gallops present (Cardio), No murmurs present (Cardio), No rub (Cardio) and Peripheral pulses 2+ throughout RATE: regular rate RHYTHM: regular rhythm HEART SOUNDS: S1 normal heart sound present and S2 normal heart sound present PERIPHERAL PULSES: Peripheral pulses 2+ throughout GI: COMMON NORMALS: Normal to inspection, nondistended, normoactive bowel sounds present, Soft to palpation, non-tender, No hepatosplenomegaly present and no masses AUSCULTATION: Yes normoactive bowel sounds PALPATION: Yes Soft to palpation and Yes No hepatosplenomegaly present RECTAL EXAM: Yes deferred Extremity: NARRATIVE EXTREMITY EXAM: 4 + B/L Pitting Edema Present in both lower extremity upto to mid l/e Neuro: COMMON NORMALS: patient oriented x3 Urinary Catheter Management^: Saravia: Cath Placed During This Visit: yes Reason for Continuing Indwelling Catheter: Other Urinary Catheter Date of Insertion: 11/04/20 Urinary Catheter Time of Insertion: 16:32 Data : 11/05/20 05:10 11/05/20 05:10 Micro: Microbiology 11/03/20 17:18 Urine Culture - Preliminary Urine,Clean Catch Strep species, gamma-hemolytic A&P Assessment and plan (1) Heart failure, chronic, with acute decompensation: Ac on chronic Decompensated HFpEF BIMUEX 2 MG Q12 H Daily I/O Charting Daily Weight K>4 ,Mg >2 Status: Acute Qualifiers: Heart failure type: unspecified Qualified Code(s): I50.9 - Heart failure, unspecified (2) Anasarca: Status: Acute (3) Hyperbilirubinemia: Likely 2/2 to Congestive Hepatopathy, as well as indirect hyperbilirubinemia secondary to hemolytic anemia secondary to likely 2/2 moderate aortic stenosis. Monitor T.Bili Trend: 5.8--> 4.7 Direct Bili : 1.80 LDH: 327 Hapto:10 Status: Acute (4) Generalized weakness: Status: Acute (5) Aortic stenosis: Mild to moderate aortic valve stenosis with a valve area of 1.4 Peak velocity of 2.6 m/s with a peak gradient of 27 and a mean gradient of 13 mmHg. Status: Acute Qualifiers: Cardiac valve disease etiology: nonrheumatic Qualified Code(s): I35.0 - Nonrheumatic aortic (valve) stenosis (6) Liver, cirrhosis, portal: Continue Lactulose Continue Rifxamin 550 mg po BID Status: Acute (7) Atrial fibrillation: Currently Rate Controlled On Low dose Eliquis 2/5 mg q12 h daily Status: Acute Qualifiers: Atrial fibrillation type: unspecified chronic Qualified Code(s): I48.20 - Chronic atrial fibrillation, unspecified (8) Hyperkalemia: Resolved Monitor BMP Status: Acute (9) Seizure: Continue Keppra 750 mg PO BID Status: Acute Additional A&P Information Anasarca Liver cirrhosis with underlying CHF exacerbation No active signs of hepatic encephalopathy Patient has been compliant with his Lasix 40 mg twice a day, spironolactone 25 mg daily, low-sodium diet and 1.5 L of fluid intake, he has moderate aortic stenosis, takes lactulose and rifaximin on daily basis Despite all of these measures patient is gaining weight, low albumin detected I will discontinue spironolactone and potassium supplementation due to hyperkalemia and use Bumex for now, judicious use of diuretics considering moderate aortic stenosis Considering his symptoms of chest pain, shortness of breath and presyncopal events he will need evaluation for aortic valve replacement especially considering hemolytic anemia which could be due to aortic stenosis, recently he finished steroid taper for possibility of autoimmune hemolytic anemia when low haptoglobin and high LDH were detected, Dr. Shukla recommended discontinuing steroids, patient is denying active GI bleed he takes Eliquis for his A. fib I would not repeat echo at this time Patient is willing to go to [facility] if he gets accepted by cardiology for evaluation of aortic valve replacement, will try to diurese him and obtain euvolemic status during this hospitalization Cardiac diet DVT prophylaxis not indicated CODE STATUS: Discussed with the patient and his he wants a trial of CPR or intubation but does not want to stay on mechanical ventilator for prolonged period of time if there is no meaningful recovery Attestations Medical Necessity Statement*: Patient needs to be in hospital for management of decompensated heart failure. Coding Level of Care Code Acute Malariologist for g Fwd Exam Detailed Diagnoses Heart failure, chronic, with acute decompensation I50.9 Heart failure type: unspecified Anasarca R60.1 Hyperbilirubinemia E80.6 Generalized weakness R53.1 Aortic stenosis I35.0 Cardiac valve disease etiology: nonrheumatic Liver, cirrhosis, portal K74.69 Atrial fibrillation I48.20 Atrial fibrillation type: unspecified chronic Hyperkalemia E87.5 Seizure R56.9
[2020-11-05] MEDS: atorvastatin 40 mg Tablet 20 MG PO (17:31)
[2020-11-05 18:19] LABS: Troponin 5 2HR 60.12 ng/L (0-15); Troponin 5 2HR Delta 6.12 ABS# (0-10)
[2020-11-05] MEDS: sodium chloride 0.9% 250 ML 20 ML IV (20:22)
--- NOTE | 2020-11-05 20:45 | ECG_ITS ---
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 Measurements Intervals [place] Rate: 93 P: [place]: QRS: 54 QRSD: 79 T: 28 QT: 367 QTc: 459 Interpretive Statements ATRIAL FIBRILLATION MODERATE ST DEPRESSION [0.05+ mV ST DEPRESSION] Compared to ECG 11/05/2020 18:17:02 ST (T wave) deviation now present Atrial fibrillation no longer present Electronically Signed On 11-07-2020 9:55:08 CDT by Sintia Chapman M.D. [id number]
[2020-11-05] MEDS: ondansetron 2 mg/ML SDV 2 mL 4 MG IVP (20:50)
[2020-11-06] VITALS (29 sets, daily range): BP systolic 97–125; BP diastolic 57–70; PULSE 70–82; RESP 16–72; TEMP 36.6–37; O2SAT 93–98
[2020-11-06 00:24] LABS: Troponin 5 6HR 76.07 ng/L (0-15)
[2020-11-06 00:32] LABS: Troponin 5 6HR Delta 15.95 ng/L (0-12)
[2020-11-06 00:42] LABS: Partial Thromboplastin Time > 250.0 SECONDS (23.9-36.7)
[2020-11-06 00:43] LABS: Eosinophils # 0.1 10^3/uL (0.0-0.8); Eosinophils % 1.2 %; Hemoglobin 6.9 g/dL (11.7-16.6); Lymphocytes % 11.4 %; Mean Corpuscular HGB Conc 33.2 g/dL (30.0-36.0); Mean Corpuscular Hemoglobin 34.5 pg (28.0-34.0); Mean Platelet Volume 10.3 fL (7.4-10.4); Monocytes % 11.3 %; Neutrophils # 6.66 10^3/uL (1.8-7.7); Neutrophils % 73.9 %; Nucleated Red Blood Cells % 0.2 %; Platelet Count 83 10^3/cmm (130-400); Red Cell Distribution Width 16.9 % (12.1-15.1)
[2020-11-06 00:44] LABS: Hematocrit 20.8 % (42.0-52.0)
--- NOTE | 2020-11-06 00:46 | PC.NURSE ---
Received critical PTT of >250. Informed Dr Moeller and received instructions to stop heparin for 4 hours. RBVO
--- NOTE | 2020-11-06 00:59 | PC.NURSE ---
Patient currently on heparin drip. Patient received 1 unit PRBCs at shift change. One hour post blood administration patient Hgb is 6.9 and Hct is 20.8. Patient also has decrease in platelets. Informed Dr Moeller. Doctor placing orders at this time.
[2020-11-06 01:17] LABS: Alanine Aminotransferase 53 U/L (0-41); Albumin Level 3.2 g/dL (3.5-5.2); Alkaline Phosphatase 82 IU/L (40-130); Aspartate Amino Transferase 61 U/L (0-40); Blood Urea Nitrogen 38 mg/dL (8-23); Calcium 8.1 mg/dL (8.5-10.5); Carbon Dioxide 23 mmol/L (22-29); Chloride 88 mmol/L (98-107); Globulin 2.1 g/dL (1.3-4.6); Glucose 151 mg/dL (65-115); Osmolality Calculated 272 mOsm/kg (285-295); Sodium 125 mmol/L (136-145); Total Bilirubin 4.3 mg/dL (0.15-1.2); Total Protein 5.3 g/dL (6.6-8.7)
[2020-11-06] MEDS: sodium chloride 0.9% 250 ML 20 ML IV ×2 (02:10→21:38)
[2020-11-06] MEDS: ipratropium-albuterol 3 mL Neb INHALATION ×5 (03:51→19:34)
[2020-11-06 05:45] LABS: Partial Thromboplastin Time 108.1 SECONDS (23.9-36.7)
[2020-11-06 07:49] LABS: Hemoglobin 7.6 g/dL (11.7-16.6)
[2020-11-06 08:07] LABS: Ammonia 64 umol/L (16-60)
--- NOTE | 2020-11-06 08:13 | XR_ITS ---
WS: [id number] Exam: XR chest 1V portable [id number] Date/Time of Exam: 11/06/2020 8:19 AM Reason For Exam: SOB Comparison 11/03/2020. The lungs are fully inflated and clear. Normal cardiomediastinal structures and bony elements. No ple ural effusions. Monitoring leads superimpose the chest. XR/XR chest 1V portable [id number] IMPRESSION: 1. No acute cardiopulmonary finding.
[2020-11-06] MEDS: pantoprazole DR 40 mg Tablet PO (08:53)
[2020-11-06] MEDS: bumetanide 0.25 mg/mL SDV 4 mL 2 MG IV ×2 (08:53→17:06)
[2020-11-06] MEDS: lactulose oral liq 20 gm/30 mL UDC PO ×6 (08:53→21:58)
[2020-11-06] MEDS: metoprolol tartrate 25 mg Tablet 12.5 MG PO ×2 (08:53→20:48)
[2020-11-06] MEDS: aspirin 81 mg EC Tablet PO (08:54)
[2020-11-06] MEDS: spironolactone 25 mg Tablet PO (08:55)
[2020-11-06] MEDS: levETIRAcetam 500 mg Tablet 750 MG PO ×2 (08:55→17:07)
[2020-11-06] MEDS: folic acid 1 mg Tablet PO (08:57)
--- NOTE | 2020-11-06 10:42 | P.PN_ITS ---
Subjective Subjective: Interval history: Patient was seen and examined this morning, occasional chest pain , shortness of breath. Continues to be in A. fib with well-controlled heart rate. 2.1 L urine output.LOS: - 1.3 Ls . XR chest : No infiltrate no pleural effusion, no pulmonary vascular congestion. Medications: Reviewed: Yes Medication Review Details: Current Medications Acetaminophen (Acetaminophen 325 Mg Tablet) 650 mg PO Q6H PRN PRN Reason: MILD PAIN Last Admin: 11/05/20 14:38 Dose: 650 mg Documented by: Albuterol/Ipratropium (Ipratropium-Albuterol 3 Ml Neb) 3 ml INHALATION Q4H.RESPIRATORY [facility] Last Admin: 11/06/20 12:48 Dose: 3 ml Documented by: Aspirin (Aspirin 81 Mg Ec Tablet) 81 mg PO DAILY [facility] Last Admin: 11/06/20 08:54 Dose: 81 mg Documented by: Atorvastatin Calcium (Atorvastatin 40 Mg Tablet) 20 mg PO DAILY@17 [facility] Last Admin: 11/05/20 17:31 Dose: 20 mg Documented by: Bumetanide (Bumetanide 0.25 Mg/Ml Sdv 4 Ml) 2 mg IV BID [facility] Last Admin: 11/06/20 08:53 Dose: 2 mg Documented by: Cyclobenzaprine HCl (Cyclobenzaprine 10 Mg Tablet) 5 mg PO BID PRN PRN Reason: MUSCLE CRAMPS Folic Acid (Folic Acid 1 Mg Tablet) 1 mg PO DAILY@08 [facility] Last Admin: 11/06/20 08:57 Dose: 1 mg Documented by: Albumin Human (Albumin) 25 gm in 100 mls @ 60 mls/hr IV Q8H [facility] Stop: 11/06/20 23:09 Last Admin: 11/06/20 14:02 Dose: 50 mls/hr Documented by: Sodium Chloride (Sodium Chloride 0.9%) 250 mls @ 0 mls/hr IV .Q0M [facility] Last Infusion: 11/06/20 04:36 Dose: Infused Documented by: Levofloxacin/Dextrose (Levaquin-D5w) 750 mg in 150 mls @ 100 mls/hr IV Q24H [facility]; Protocol Last Admin: 11/06/20 14:54 Dose: 100 mls/hr Documented by: Lactulose (Lactulose Oral Liq 20 Gm/30 Ml Udc) 45 gm PO BID [facility] Last Admin: 11/06/20 13:39 Dose: Not Given Documented by: Lactulose (Lactulose Oral Liq 20 Gm/30 Ml Udc) 20 gm PO Q2H [facility] Last Admin: 11/06/20 14:02 Dose: 20 gm Documented by: Levetiracetam (Levetiracetam 500 Mg Tablet) 750 mg PO BID@08,17 [facility] Last Admin: 11/06/20 08:55 Dose: 750 mg Documented by: Metoprolol Tartrate (Metoprolol Tartrate 25 Mg Tablet) 12.5 mg PO BID@0900,2100 [facility] Last Admin: 11/06/20 08:53 Dose: 12.5 mg Documented by: Nitroglycerin (Nitroglycerin 0.4 Mg Sublingual Tablet) 0.4 mg SUBLINGUAL Q5M PRN PRN Reason: CHEST PAIN Last Admin: 11/05/20 13:00 Dose: 1 cap Documented by: Ondansetron HCl (Ondansetron 2 Mg/Ml Sdv 2 Ml) 4 mg IVP Q6H PRN PRN Reason: NAUSEA AND VOMITING Last Admin: 11/05/20 20:50 Dose: 4 mg Documented by: Pantoprazole Sodium (Pantoprazole Dr 40 Mg Tablet) 40 mg PO DAILY@08 [facility] Last Admin: 11/06/20 08:53 Dose: 40 mg Documented by: Rifaximin (Rifaximin 550 Mg Tablet) 550 mg PO BID@0800,1700 [facility]; Protocol Last Admin: 11/06/20 08:57 Dose: 550 mg Documented by: Fluticasone/Salmeterol (Fluticasone-Salmeterol 250-50 Diskus) 1 puff INHALATION BID.RESPIRATORY [facility] Last Admin: 11/06/20 08:48 Dose: 1 puff Documented by: Spironolactone (Spironolactone 25 Mg Tablet) 25 mg PO DAILY@08 [facility] Last Admin: 11/06/20 08:55 Dose: 25 mg Documented by: Vitals/I&O/Wt Last Vital Signs Temp 98.6 F 11/06/20 04:33 Pulse 73 11/06/20 08:54 Resp 16 11/06/20 08:50 BP 110/68 11/06/20 04:33 Pulse Ox 97 11/06/20 08:50 11/05/20 11/06/20 11/06/20 22:59 06:59 14:59 Intake Total 690 / 1490 870.833 / 2360.833 Output Total 400 / 1750 425 / 2175 Balance 290 / -260 445.833 / 185.833 Physical Exam Const: COMMON NORMALS: patient oriented x3 HENMT: COMMON NORMALS: normocephalic and atraumatic HEAD & SCALP: normocephalic and atraumatic Resp: EFFORT & INSPECTION: Yes symmetric chest movement OTHER: B/L minimal basal crackles present in both lungs leger. Cardio: COMMON NORMALS: regular rate, regular rhythm, S1 normal heart sound present, S2 normal heart sound present, No gallops present (Cardio), No murmurs present (Cardio), No rub (Cardio) and Peripheral pulses 2+ throughout RATE: regular rate RHYTHM: regular rhythm HEART SOUNDS: S1 normal heart sound present and S2 normal heart sound present PERIPHERAL PULSES: Peripheral pulses 2+ throughout GI: COMMON NORMALS: Normal to inspection, nondistended, normoactive bowel sounds present, Soft to palpation, non-tender, No hepatosplenomegaly present and no masses AUSCULTATION: Yes normoactive bowel sounds PALPATION: Yes Soft to palpation and Yes No hepatosplenomegaly present RECTAL EXAM: Yes deferred Extremity: NARRATIVE EXTREMITY EXAM: 4 + B/L Pitting Edema Present in both lower extremity upto to mid l/e Neuro: COMMON NORMALS: patient oriented x3 Urinary Catheter Management^: Saravia: Cath Placed During This Visit: yes Reason for Continuing Indwelling Catheter: Acute Urinary Retention or Obstruction Urinary Catheter Date of Insertion: 11/04/20 Urinary Catheter Time of Insertion: 16:32 Data : 11/06/20 16:30 11/06/20 00:00 Micro: Microbiology 11/03/20 17:18 Urine Culture - Preliminary Urine,Clean Catch Strep species, gamma-hemolytic A&P Assessment and plan (1) NSTEMI (non-ST elevated myocardial infarction): NSTEMI type II: Patient was experiencing substernal chest pain on 11/06 around noon, EKG done at that time: Showed atrial fibrillation with ST depression and moderate T wave abnormality new as compared to prior EKGs, suggestive of anterior ischemia. Troponin trend was done : Baseline troponin: 54, 2-hour troponin: 60, 2-hour delta :6.12 , 6-hour troponin: 76, 6-hour delta: 15 2D echo: 11/05 : Normal LV size and systolic function, with no RWMA , LVEF: 70%, mild aortic stenosis, peak velocity 2.6 m/s, mean gradient 13.2 mmHg, KAIA 2.6 cm squared. Mild tricuspid valve regurgitation. Serial EKG monitoring was done: ST-T wave changes seen on earlier EKG settled.Patient continued to remain in A. fib with mostly well controlled heart rate. Patient's Eliquis 2.5 mg q12 h was discontinued: He was started on heparin drip without bolus. Along with aspirin 81 mg p.o. daily. Given the fact that his hemoglobin was 7.6, he was also transfused 1 unit of blood, CBC was monitored, heparin drip and aspirin had to be discontinued as there was a drop in hemoglobin, T0 6.9 , he received another 2 units PRBC.CBC was continued to monitor. FOBT was ordered. Status: Acute (2) Heart failure, chronic, with acute decompensation: Ac on chronic Decompensated HFpEF BIMUEX 2 MG Q12 H Daily. Metolazone 5 mg p.o. daily I/O Charting Daily Weight K>4 ,Mg >2 Status: Acute Qualifiers: Heart failure type: unspecified Qualified Code(s): I50.9 - Heart failure, unspecified (3) Anasarca: Likely secondary to decompensated heart failure, hypoalbuminemia, decompensated liver cirrhosis. Patient is being diuresed, as well as has got Albumin total of 4 bags of 25 g. Lower extremity swelling is improving. 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 Current plan is to transfuse to maintain hemoglobin greater than 7 around 8. Status: Acute (6) Generalized weakness: Status: Acute (7) Aortic stenosis: Mild to moderate aortic valve stenosis with a valve area of 1.4 Peak velocity of 2.6 m/s with a peak gradient of 27 and a mean gradient of 13 mmHg. Status: Acute Qualifiers: Cardiac valve disease etiology: nonrheumatic Qualified Code(s): I35.0 - Nonrheumatic aortic (valve) stenosis (8) Liver, cirrhosis, portal: Continue Lactulose Continue Rifxamin 550 mg po BID Status: Acute (9) Hepatic encephalopathy: Grade 1 hepatic encephalopathy: Minimal changes in behavior Currently on lactulose target is to achieve 2-3 bowel movements. Blood culture Urine culture has grown: Enterococcus faecalis. Continue rifaximin Currently on levofloxacin Status: Acute (10) UTI (urinary tract infection): Recurrent: Enterococcus faecalis UTI: On last admission he was treated with ampicillin. We will start him on levofloxacin 750 mg IV daily Repeat urine culture Status: Acute (11) Atrial fibrillation: Currently Rate Controlled. Metoprolol tartrate 12.5 mg every 12 hours daily Initially on Low dose Eliquis 2/5 mg q12 h daily has been stopped. Status: Acute Qualifiers: Atrial fibrillation type: unspecified chronic Qualified Code(s): I48.20 - Chronic atrial fibrillation, unspecified (12) Hyperkalemia: Resolved Monitor BMP Status: Acute (13) Seizure: Continue Keppra 750 mg PO BID Status: Acute (14) Hyponatremia: Status: Acute (15) Thrombocytopenia: Status: Acute Additional A&P Information Anasarca Liver cirrhosis with underlying CHF exacerbation No active signs of hepatic encephalopathy Patient has been compliant with his Lasix 40 mg twice a day, spironolactone 25 mg daily, low-sodium diet and 1.5 L of fluid intake, he has moderate aortic stenosis, takes lactulose and rifaximin on daily basis Despite all of these measures patient is gaining weight, low albumin detected I will discontinue spironolactone and potassium supplementation due to hyperkalemia and use Bumex for now, judicious use of diuretics considering moderate aortic stenosis Considering his symptoms of chest pain, shortness of breath and presyncopal events he will need evaluation for aortic valve replacement especially considering hemolytic anemia which could be due to aortic stenosis, recently he finished steroid taper for possibility of autoimmune hemolytic anemia when low haptoglobin and high LDH were detected, Dr. Shukla recommended discontinuing steroids, patient is denying active GI bleed he takes Eliquis for his A. fib I would not repeat echo at this time Patient is willing to go to [facility] if he gets accepted by cardiology for evaluation of aortic valve replacement, will try to diurese him and obtain euvolemic status during this hospitalization Cardiac diet DVT prophylaxis not indicated CODE STATUS: Discussed with the patient and his he wants a trial of CPR or intubation but does not want to stay on mechanical ventilator for prolonged period of time if there is no meaningful recovery Attestations Medical Necessity Statement*: Patient needs to be in hospital for management of above defined problem. Coding Level of Care Code Acute Slurry Man for g Fwd Exam Detailed Diagnoses NSTEMI (non-ST elevated myocardial infarction) I21.4 Heart failure, chronic, with acute decompensation I50.9 Heart failure type: unspecified Anasarca R60.1 Hyperbilirubinemia E80.6 Anemia D64.9 Generalized weakness R53.1 Aortic stenosis I35.0 Cardiac valve disease etiology: nonrheumatic Liver, cirrhosis, portal K74.69 Hepatic encephalopathy K72.90 UTI (urinary tract infection) N39.0 Atrial fibrillation I48.20 Atrial fibrillation type: unspecified chronic Hyperkalemia E87.5 Seizure R56.9 Hyponatremia E87.1 Thrombocytopenia D69.6
--- NOTE | 2020-11-06 14:44 | P.PN_ITS ---
Subjective Subjective: Interval history: Patient feels better today occasional chest tightness. 2.1 L urine output but remains approximately 200 mL positive. Medications: Reviewed: Yes Medication Review Details: Current Medications Acetaminophen (Acetaminophen 325 Mg Tablet) 650 mg PO Q6H PRN PRN Reason: MILD PAIN Last Admin: 11/05/20 14:38 Dose: 650 mg Documented by: Albuterol/Ipratropium (Ipratropium-Albuterol 3 Ml Neb) 3 ml INHALATION Q4H.RESPIRATORY [facility] Last Admin: 11/06/20 12:48 Dose: 3 ml Documented by: Aspirin (Aspirin 81 Mg Ec Tablet) 81 mg PO DAILY [facility] Last Admin: 11/06/20 08:54 Dose: 81 mg Documented by: Atorvastatin Calcium (Atorvastatin 40 Mg Tablet) 20 mg PO DAILY@17 [facility] Last Admin: 11/05/20 17:31 Dose: 20 mg Documented by: Bumetanide (Bumetanide 0.25 Mg/Ml Sdv 4 Ml) 2 mg IV BID [facility] Last Admin: 11/06/20 08:53 Dose: 2 mg Documented by: Cyclobenzaprine HCl (Cyclobenzaprine 10 Mg Tablet) 5 mg PO BID PRN PRN Reason: MUSCLE CRAMPS Folic Acid (Folic Acid 1 Mg Tablet) 1 mg PO DAILY@08 [facility] Last Admin: 11/06/20 08:57 Dose: 1 mg Documented by: Albumin Human (Albumin) 25 gm in 100 mls @ 60 mls/hr IV Q8H [facility] Stop: 11/06/20 23:09 Last Admin: 11/06/20 14:02 Dose: 50 mls/hr Documented by: Sodium Chloride (Sodium Chloride 0.9%) 250 mls @ 0 mls/hr IV .Q0M [facility] Last Infusion: 11/06/20 04:36 Dose: Infused Documented by: Levofloxacin/Dextrose (Levaquin-D5w) 750 mg in 150 mls @ 100 mls/hr IV Q24H [facility]; Protocol Last Admin: 11/06/20 14:54 Dose: 100 mls/hr Documented by: Lactulose (Lactulose Oral Liq 20 Gm/30 Ml Udc) 45 gm PO BID [facility] Last Admin: 11/06/20 13:39 Dose: Not Given Documented by: Lactulose (Lactulose Oral Liq 20 Gm/30 Ml Udc) 20 gm PO Q2H [facility] Last Admin: 11/06/20 14:02 Dose: 20 gm Documented by: Levetiracetam (Levetiracetam 500 Mg Tablet) 750 mg PO BID@08,17 [facility] Last Admin: 11/06/20 08:55 Dose: 750 mg Documented by: Metoprolol Tartrate (Metoprolol Tartrate 25 Mg Tablet) 12.5 mg PO BID@0900,2100 [facility] Last Admin: 11/06/20 08:53 Dose: 12.5 mg Documented by: Nitroglycerin (Nitroglycerin 0.4 Mg Sublingual Tablet) 0.4 mg SUBLINGUAL Q5M PRN PRN Reason: CHEST PAIN Last Admin: 11/05/20 13:00 Dose: 1 cap Documented by: Ondansetron HCl (Ondansetron 2 Mg/Ml Sdv 2 Ml) 4 mg IVP Q6H PRN PRN Reason: NAUSEA AND VOMITING Last Admin: 11/05/20 20:50 Dose: 4 mg Documented by: Pantoprazole Sodium (Pantoprazole Dr 40 Mg Tablet) 40 mg PO DAILY@08 [facility] Last Admin: 11/06/20 08:53 Dose: 40 mg Documented by: Rifaximin (Rifaximin 550 Mg Tablet) 550 mg PO BID@0800,1700 [facility]; Protocol Last Admin: 11/06/20 08:57 Dose: 550 mg Documented by: Fluticasone/Salmeterol (Fluticasone-Salmeterol 250-50 Diskus) 1 puff INHALATION BID.RESPIRATORY [facility] Last Admin: 11/06/20 08:48 Dose: 1 puff Documented by: Spironolactone (Spironolactone 25 Mg Tablet) 25 mg PO DAILY@08 [facility] Last Admin: 11/06/20 08:55 Dose: 25 mg Documented by: Vitals/I&O/Wt Last Vital Signs Temp 98.6 F 11/06/20 04:33 Pulse 76 11/06/20 12:54 Resp 18 11/06/20 12:49 BP 110/68 11/06/20 04:33 Pulse Ox 97 11/06/20 12:49 11/05/20 11/06/20 11/06/20 22:59 06:59 14:59 Intake Total 690 / 1490 870.833 / 2360.833 480 / 480 Output Total 400 / 1750 425 / 2175 Balance 290 / -260 445.833 / 185.833 480 / 480 Physical Exam Narrative: EXAM NARRATIVE: Gen: obese man lying propped up in bed HEENT: EOMI, pallor+, No icterus RS: decreased breath sound at bases CVS: S1, S2 irregular. Grade 3 systolic murmur in RUSB FOOD SERVER: AAOx 3, No FND GI: soft, NT, ND, BS+ Ext: 3-4+ bilateral edema+, anasarca; No clubbing Urinary Catheter Management^: Saravia: Cath Placed During This Visit: yes Reason for Continuing Indwelling Catheter: Acute Urinary Retention or Obstruction Urinary Catheter Date of Insertion: 11/04/20 Urinary Catheter Time of Insertion: 16:32 Data : 11/06/20 07:42 11/06/20 00:00 Micro: Microbiology 11/03/20 17:18 Urine Culture - Final Urine,Clean Catch Enterococcus faecalis A&P Assessment and plan (1) NSTEMI (non-ST elevated myocardial infarction): NSTEMI: Type 1 vs type 2 in setting of anemia, CHF is a possibility. He has h/o GI bleed, gastric ulcer as well as epistaxis. He is anemic as well. Recent stress test was normal. -Normal LV function and no RWMA on echo. ST-T wave changes in gildardo-lateral leads resolved -Troponin T baseline at 54 increased to 60 then to 76. I do not believe he would be a candidate for any invasive procedure at this moment even if indicated. This was discussed with patient and his as well. -No ASA d/t drop in Hb, on lipitor (may have to stop based on liver function). -On low dose beta desiree. Status: Acute (2) Anasarca: Anasarca probably is a combination of decompensated liver cirrhosis and CHF. Status: Acute (3) Heart failure, chronic, with acute decompensation: HFpEF -Normal LV and RV systolic function. -continue Bumex. Will add metolazone. Status: Acute Qualifiers: Heart failure type: unspecified Qualified Code(s): I50.9 - Heart failure, unspecified (4) Atrial fibrillation: Paroxysmal A. fib with RVR. -Currently on metoprolol tartrate 12.5 mg p.o. twice daily Status: Acute Qualifiers: Atrial fibrillation type: unspecified chronic Qualified Code(s): I48.20 - Chronic atrial fibrillation, unspecified Additional A&P Information Mild on recent echo Liver cirrohosis Macrocytic anemia: Received 2 units of packed red blood cells. Hepatic encephalopathy : On rifaximin and lactulose Hyponatremia RAÚL Abnormal liver enzymes. Thank you for allowing me to participate in patient's care. Please feel free to call with questions or concerns. Attestations Medical Necessity Statement*: Needs hospital stay for anasarca and severe anemia Time Spent in Patient Care: 16 - 35 minutes (>than 50% of time spent in counselling and/or direct pt care on unit) . Coding Level of Care Code Acute Accounts Payable Administrator for [facility] Diagnoses NSTEMI (non-ST elevated myocardial infarction) I21.4 Anasarca R60.1 Heart failure, chronic, with acute decompensation I50.9 Heart failure type: unspecified Atrial fibrillation I48.20 Atrial fibrillation type: unspecified chronic
[2020-11-06] MEDS: levofloxacin-dextrose 5 % 750 MG/150 ML PREMIX 100 MG IV (14:54)
[2020-11-06 16:50] LABS: Basophils % 0.1 %; Eosinophils # 0.1 10^3/uL (0.0-0.8); Eosinophils % 1.5 %; Hematocrit 22.4 % (42.0-52.0); Hemoglobin 7.4 g/dL (11.7-16.6); Lymphocytes % 13.2 %; Mean Corpuscular Hemoglobin 33.6 pg (28.0-34.0); Mean Corpuscular Volume 101.8 fL (80-94); Mean Platelet Volume 10.5 fL (7.4-10.4); Monocytes # 0.8 10^3/uL (0.2-0.9); Monocytes % 10.5 %; Neutrophils # 5.73 10^3/uL (1.8-7.7); Neutrophils % 73.3 %; Nucleated Red Blood Cells % 0 %; Platelet Count 73 10^3/cmm (130-400); White Blood Count 7.8 10^3/uL (4.0-10.0)
[2020-11-06] MEDS: pantoprazole 40 mg SDV IVP (17:06)
[2020-11-06] MEDS: atorvastatin 40 mg Tablet 20 MG PO (17:07)
[2020-11-06] MEDS: metOLazone 5 MG Tablet PO (17:07)
[2020-11-06] MEDS: sodium chloride 1 gm Tablet PO (17:07)
[2020-11-07] VITALS (24 sets, daily range): BP systolic 101–123; BP diastolic 58–65; PULSE 71–83; RESP 15–22; TEMP 36.6–37.1; O2SAT 92–98
[2020-11-07] MEDS: lactulose oral liq 20 gm/30 mL UDC PO ×2 (00:12→05:18)
[2020-11-07] MEDS: ipratropium-albuterol 3 mL Neb INHALATION ×6 (00:33→21:12)
[2020-11-07] MEDS: pantoprazole 40 mg SDV IVP (05:18)
[2020-11-07 06:02] LABS: Basophils % 0.1 %; Eosinophils # 0.1 10^3/uL (0.0-0.8); Eosinophils % 0.8 %; Hematocrit 24.9 % (42.0-52.0); Hemoglobin 8.2 g/dL (11.7-16.6); Lymphocytes # 0.7 10^3/uL (0.8-4.8); Mean Corpuscular HGB Conc 32.9 g/dL (30.0-36.0); Mean Corpuscular Hemoglobin 33.2 pg (28.0-34.0); Mean Corpuscular Volume 100.8 fL (80-94); Mean Platelet Volume 10.6 fL (7.4-10.4); Monocytes # 0.9 10^3/uL (0.2-0.9); Monocytes % 9.6 %; Neutrophils # 7.38 10^3/uL (1.8-7.7); Neutrophils % 80.2 %; Nucleated Red Blood Cells % 0 %; Platelet Count 71 10^3/cmm (130-400); Red Blood Count 2.47 10^6/uL (4.1-5.3); Red Cell Distribution Width 18.3 % (12.1-15.1); White Blood Count 9.2 10^3/uL (4.0-10.0)
[2020-11-07 06:21] LABS: Alanine Aminotransferase 47 U/L (0-41); Albumin Level 3.7 g/dL (3.5-5.2); Alkaline Phosphatase 77 IU/L (40-130); Anion Gap 16.8 (5-19); Aspartate Amino Transferase 52 U/L (0-40); Blood Urea Nitrogen 47 mg/dL (8-23); Calcium 8.4 mg/dL (8.5-10.5); Carbon Dioxide 25 mmol/L (22-29); Chloride 91 mmol/L (98-107); Globulin 1.9 g/dL (1.3-4.6); Glucose 117 mg/dL (65-115); Magnesium 2.2 mg/dL (1.7-2.3); Osmolality Calculated 281 mOsm/kg (285-295); Potassium 3.8 mmol/L (3.5-5.1); Sodium 129 mmol/L (136-145); Total Bilirubin 6.1 mg/dL (0.15-1.2); Total Protein 5.6 g/dL (6.6-8.7)
[2020-11-07] MEDS: bumetanide 0.25 mg/mL SDV 4 mL 2 MG IV (09:21)
[2020-11-07] MEDS: lactulose oral liq 20 gm/30 mL UDC 45 GM PO ×2 (09:21→17:48)
[2020-11-07] MEDS: levETIRAcetam 500 mg Tablet 750 MG PO ×2 (09:22→17:48)
[2020-11-07] MEDS: cyclobenzaprine 10 mg Tablet 5 MG PO (09:22)
[2020-11-07] MEDS: sodium chloride 1 gm Tablet PO ×2 (09:22→17:48)
[2020-11-07] MEDS: folic acid 1 mg Tablet PO (09:26)
[2020-11-07] MEDS: metOLazone 5 MG Tablet PO (09:26)
[2020-11-07] MEDS: metoprolol tartrate 25 mg Tablet 12.5 MG PO ×2 (09:26→20:31)
[2020-11-07] MEDS: spironolactone 25 mg Tablet PO (09:26)
--- NOTE | 2020-11-07 10:15 | P.PN_ITS ---
Subjective Subjective: Interval history: Feels about the same. Medications: Reviewed: Yes Medication Review Details: Current Medications Acetaminophen (Acetaminophen 325 Mg Tablet) 650 mg PO Q6H PRN PRN Reason: MILD PAIN Last Admin: 11/05/20 14:38 Dose: 650 mg Documented by: Albuterol/Ipratropium (Ipratropium-Albuterol 3 Ml Neb) 3 ml INHALATION Q4H.RESPIRATORY [facility] Last Admin: 11/07/20 16:22 Dose: 3 ml Documented by: Atorvastatin Calcium (Atorvastatin 40 Mg Tablet) 20 mg PO DAILY@17 [facility] Last Admin: 11/06/20 17:07 Dose: 20 mg Documented by: Bumetanide (Bumetanide 0.25 Mg/Ml Sdv 4 Ml) 2 mg IV BID [facility] Last Admin: 11/07/20 09:21 Dose: 2 mg Documented by: Cyclobenzaprine HCl (Cyclobenzaprine 10 Mg Tablet) 5 mg PO BID PRN PRN Reason: MUSCLE CRAMPS Last Admin: 11/07/20 09:22 Dose: 5 mg Documented by: Folic Acid (Folic Acid 1 Mg Tablet) 1 mg PO DAILY@08 [facility] Last Admin: 11/07/20 09:26 Dose: 1 mg Documented by: Levofloxacin/Dextrose (Levaquin-D5w) 750 mg in 150 mls @ 100 mls/hr IV Q24H [facility]; Protocol Last Admin: 11/07/20 16:15 Dose: 100 mls/hr Documented by: Sodium Chloride (Sodium Chloride 0.9%) 250 mls @ 0 mls/hr IV .Q0M PRN PRN Reason: PRBC TRANSFUSION Last Infusion: 11/07/20 00:25 Dose: Infused Documented by: Lactulose (Lactulose Oral Liq 20 Gm/30 Ml Udc) 45 gm PO BID [facility] Last Admin: 11/07/20 09:21 Dose: 45 gm Documented by: Levetiracetam (Levetiracetam 500 Mg Tablet) 750 mg PO BID@,17 [facility] Last Admin: 11/07/20 09:22 Dose: 750 mg Documented by: Metolazone (Metolazone 5 Mg Tablet) 5 mg PO DAILY [facility] Last Admin: 11/07/20 09:26 Dose: 5 mg Documented by: Metoprolol Tartrate (Metoprolol Tartrate 25 Mg Tablet) 12.5 mg PO BID@0900,2100 [facility] Last Admin: 11/07/20 09:26 Dose: 12.5 mg Documented by: Nitroglycerin (Nitroglycerin 0.4 Mg Sublingual Tablet) 0.4 mg SUBLINGUAL Q5M PRN PRN Reason: CHEST PAIN Last Admin: 11/05/20 13:00 Dose: 1 cap Documented by: Ondansetron HCl (Ondansetron 2 Mg/Ml Sdv 2 Ml) 4 mg IVP Q6H PRN PRN Reason: NAUSEA AND VOMITING Last Admin: 11/05/20 20:50 Dose: 4 mg Documented by: Pantoprazole Sodium (Pantoprazole 40 Mg Sdv) 40 mg IVP Q12H [facility] Last Admin: 11/07/20 05:18 Dose: 40 mg Documented by: Rifaximin (Rifaximin 550 Mg Tablet) 550 mg PO BID@0800,1700 [facility]; Protocol Last Admin: 11/07/20 09:33 Dose: 550 mg Documented by: Fluticasone/Salmeterol (Fluticasone-Salmeterol 250-50 Diskus) 1 puff INHALATION BID.RESPIRATORY [facility] Last Admin: 11/07/20 08:58 Dose: 1 puff Documented by: Sodium Chloride (Sodium Chloride 1 Gm Tablet) 1 gm PO BID [facility] Last Admin: 11/07/20 09:22 Dose: 1 gm Documented by: Spironolactone (Spironolactone 25 Mg Tablet) 25 mg PO DAILY@08 [facility] Last Admin: 11/07/20 09:26 Dose: 25 mg Documented by: Vitals/I&O/Wt Last Vital Signs Temp 98.0 F 11/07/20 08:00 Pulse 75 11/07/20 09:05 Resp 16 11/07/20 09:01 BP 101/58 11/07/20 08:00 Pulse Ox 92 11/07/20 09:01 11/06/20 11/07/20 11/07/20 22:59 06:59 14:59 Intake Total 610.333 / 1090.333 55.333 / 1145.666 240 / 240 Output Total 900 / 900 825 / 1725 Balance -289.667 / 190.333 -769.667 / -579.334 240 / 240 Physical Exam Narrative: EXAM NARRATIVE: Gen: obese man lying propped up in bed HEENT: EOMI, pallor+, No icterus RS: decreased breath sound at bases CVS: S1, S2 irregular. Grade 3 systolic murmur in RUSB PATIENT ACCOUNT REPRESENTATIVE: AAOx 3, No FND GI: soft, NT, ND, BS+ Ext: 3-4+ bilateral edema+, anasarca; No clubbing Urinary Catheter Management^: Saravia: Cath Placed During This Visit: yes Reason for Continuing Indwelling Catheter: Accurate Measurement of Urinary Output in Critically Ill Patients Urinary Catheter Date of Insertion: 11/04/20 Urinary Catheter Time of Insertion: 16:32 Data : 11/07/20 05:18 11/07/20 05:18 Micro: Microbiology 11/07/20 00:10 Occult Blood (FIT) - Final Stool Routine Collection 11/06/20 16:30 Blood Culture - Preliminary Blood SPECIMEN COLLECTED 11/06/20 16:20 Blood Culture - Preliminary Blood SPECIMEN COLLECTED 11/03/20 17:18 Urine Culture - Final Urine,Clean Catch Enterococcus faecalis A&P Assessment and plan (1) NSTEMI (non-ST elevated myocardial infarction): NSTEMI: Type 2 in setting of anemia and CHF is a possibility. He has h/o GI bleed, gastric ulcer as well as epistaxis. He is anemic as well. Recent stress test was normal. -Normal LV function and no RWMA on echo. ST-T wave changes in gildardo-lateral leads resolved -Troponin T baseline at 54 increased to 60 then to 76. I do not believe he would be a candidate for any invasive procedure at this moment even if indicated. This was discussed with patient and his as well. -No ASA d/t drop in Hb, on lipitor (may have to stop based on liver function). -On low dose beta desiree. Status: Acute (2) Anasarca: Anasarca probably is a combination of decompensated liver cirrhosis and CHF. Status: Acute (3) Heart failure, chronic, with acute decompensation: HFpEF -Normal LV and RV systolic function. -continue Bumex, aldactone and metolazone. Status: Acute Qualifiers: Heart failure type: unspecified Qualified Code(s): I50.9 - Heart failure, unspecified (4) Atrial fibrillation: Paroxysmal A. fib with RVR. -Currently on metoprolol tartrate 12.5 mg p.o. twice daily Status: Acute Qualifiers: Atrial fibrillation type: unspecified chronic Qualified Code(s): I48.20 - Chronic atrial fibrillation, unspecified Additional A&P Information Mild on recent echo Liver cirrohosis Macrocytic anemia: Received 3 units of packed red blood cells. Hepatic encephalopathy : On rifaximin and lactulose Hyponatremia RAÚL Abnormal liver enzymes. Thank you for allowing me to participate in patient's care. Please feel free to call with questions or concerns. Attestations Medical Necessity Statement*: Needs hospital stay for anasarca and severe anemia Time Spent in Patient Care: 16 - 35 minutes (>than 50% of time spent in counselling and/or direct pt care on unit) . Coding Level of Care Code Acute Engineer F[employer] for [facility] Diagnoses NSTEMI (non-ST elevated myocardial infarction) I21.4 Anasarca R60.1 Heart failure, chronic, with acute decompensation I50.9 Heart failure type: unspecified Atrial fibrillation I48.20 Atrial fibrillation type: unspecified chronic
--- NOTE | 2020-11-07 13:22 | PM.PN ---
Subjective Subjective: Interval history: Patient was seen and examined this morning, overall he is clinically stable. He was much more alert and awake today.Lower extremity swelling is slowly improving.LOS : Negative; 3.1 L s Medications: Reviewed: Yes Medication Review Details: Current Medications Acetaminophen (Acetaminophen 325 Mg Tablet) 650 mg PO Q6H PRN PRN Reason: MILD PAIN Last Admin: 11/05/20 14:38 Dose: 650 mg Documented by: Albuterol/Ipratropium (Ipratropium-Albuterol 3 Ml Neb) 3 ml INHALATION Q4H.RESPIRATORY [facility] Last Admin: 11/06/20 12:48 Dose: 3 ml Documented by: Aspirin (Aspirin 81 Mg Ec Tablet) 81 mg PO DAILY [facility] Last Admin: 11/06/20 08:54 Dose: 81 mg Documented by: Atorvastatin Calcium (Atorvastatin 40 Mg Tablet) 20 mg PO DAILY@17 [facility] Last Admin: 11/05/20 17:31 Dose: 20 mg Documented by: Bumetanide (Bumetanide 0.25 Mg/Ml Sdv 4 Ml) 2 mg IV BID [facility] Last Admin: 11/06/20 08:53 Dose: 2 mg Documented by: Cyclobenzaprine HCl (Cyclobenzaprine 10 Mg Tablet) 5 mg PO BID PRN PRN Reason: MUSCLE CRAMPS Folic Acid (Folic Acid 1 Mg Tablet) 1 mg PO DAILY@08 [facility] Last Admin: 11/06/20 08:57 Dose: 1 mg Documented by: Albumin Human (Albumin) 25 gm in 100 mls @ 60 mls/hr IV Q8H [facility] Stop: 11/06/20 23:09 Last Admin: 11/06/20 14:02 Dose: 50 mls/hr Documented by: Sodium Chloride (Sodium Chloride 0.9%) 250 mls @ 0 mls/hr IV .Q0M [facility] Last Infusion: 11/06/20 04:36 Dose: Infused Documented by: Levofloxacin/Dextrose (Levaquin-D5w) 750 mg in 150 mls @ 100 mls/hr IV Q24H [facility]; Protocol Last Admin: 11/06/20 14:54 Dose: 100 mls/hr Documented by: Lactulose (Lactulose Oral Liq 20 Gm/30 Ml Udc) 45 gm PO BID [facility] Last Admin: 11/06/20 13:39 Dose: Not Given Documented by: Lactulose (Lactulose Oral Liq 20 Gm/30 Ml Udc) 20 gm PO Q2H [facility] Last Admin: 11/06/20 14:02 Dose: 20 gm Documented by: Levetiracetam (Levetiracetam 500 Mg Tablet) 750 mg PO BID@08,17 [facility] Last Admin: 11/06/20 08:55 Dose: 750 mg Documented by: Metoprolol Tartrate (Metoprolol Tartrate 25 Mg Tablet) 12.5 mg PO BID@0900,2100 [facility] Last Admin: 11/06/20 08:53 Dose: 12.5 mg Documented by: Nitroglycerin (Nitroglycerin 0.4 Mg Sublingual Tablet) 0.4 mg SUBLINGUAL Q5M PRN PRN Reason: CHEST PAIN Last Admin: 11/05/20 13:00 Dose: 1 cap Documented by: Ondansetron HCl (Ondansetron 2 Mg/Ml Sdv 2 Ml) 4 mg IVP Q6H PRN PRN Reason: NAUSEA AND VOMITING Last Admin: 11/05/20 20:50 Dose: 4 mg Documented by: Pantoprazole Sodium (Pantoprazole Dr 40 Mg Tablet) 40 mg PO DAILY@08 [facility] Last Admin: 11/06/20 08:53 Dose: 40 mg Documented by: Rifaximin (Rifaximin 550 Mg Tablet) 550 mg PO BID@0800,1700 [facility]; Protocol Last Admin: 11/06/20 08:57 Dose: 550 mg Documented by: Fluticasone/Salmeterol (Fluticasone-Salmeterol 250-50 Diskus) 1 puff INHALATION BID.RESPIRATORY [facility] Last Admin: 11/06/20 08:48 Dose: 1 puff Documented by: Spironolactone (Spironolactone 25 Mg Tablet) 25 mg PO DAILY@08 [facility] Last Admin: 11/06/20 08:55 Dose: 25 mg Documented by: Vitals/I&O/Wt Last Vital Signs Temp 97.9 F 11/07/20 10:35 Pulse 73 11/07/20 12:20 Resp 18 11/07/20 12:10 BP 116/58 11/07/20 10:35 Pulse Ox 92 11/07/20 12:10 11/06/20 11/07/20 11/07/20 22:59 06:59 14:59 Intake Total 610.333 / 1090.333 55.333 / 1145.666 360 / 360 Output Total 900 / 900 825 / 1725 Balance -289.667 / 190.333 -769.667 / -579.334 360 / 360 Physical Exam Const: COMMON NORMALS: patient oriented x3 HENMT: COMMON NORMALS: normocephalic and atraumatic HEAD & SCALP: normocephalic and atraumatic Resp: EFFORT & INSPECTION: Yes symmetric chest movement OTHER: B/L minimal basal crackles present in both lungs leger. Cardio: COMMON NORMALS: regular rate, regular rhythm, S1 normal heart sound present, S2 normal heart sound present, No gallops present (Cardio), No murmurs present (Cardio), No rub (Cardio) and Peripheral pulses 2+ throughout RATE: regular rate RHYTHM: regular rhythm HEART SOUNDS: S1 normal heart sound present and S2 normal heart sound present PERIPHERAL PULSES: Peripheral pulses 2+ throughout GI: COMMON NORMALS: Normal to inspection, nondistended, normoactive bowel sounds present, Soft to palpation, non-tender, No hepatosplenomegaly present and no masses AUSCULTATION: Yes normoactive bowel sounds PALPATION: Yes Soft to palpation and Yes No hepatosplenomegaly present RECTAL EXAM: Yes deferred Extremity: NARRATIVE EXTREMITY EXAM: 3+ B/L Pitting Edema Present in both lower extremity Neuro: COMMON NORMALS: patient oriented x3 Urinary Catheter Management^: Saravia: Cath Placed During This Visit: yes Reason for Continuing Indwelling Catheter: Accurate Measurement of Urinary Output in Critically Ill Patients Urinary Catheter Date of Insertion: 11/04/20 Urinary Catheter Time of Insertion: 16:32 Data : 11/07/20 05:18 11/07/20 05:18 Micro: Microbiology 11/07/20 00:10 Occult Blood (FIT) - Final Stool Routine Collection 11/06/20 16:30 Blood Culture - Preliminary Blood SPECIMEN COLLECTED 11/06/20 16:20 Blood Culture - Preliminary Blood SPECIMEN COLLECTED 11/03/20 17:18 Urine Culture - Final Urine,Clean Catch Enterococcus faecalis A&P Assessment and plan (1) NSTEMI (non-ST elevated myocardial infarction): NSTEMI type II: Patient was experiencing substernal chest pain on 11/06 around noon, EKG done at that time: Showed atrial fibrillation with ST depression and moderate T wave abnormality new as compared to prior EKGs, suggestive of anterior ischemia. Troponin trend was done : Baseline troponin: 54, 2-hour troponin: 60, 2-hour delta :6.12 , 6-hour troponin: 76, 6-hour delta: 15 2D echo: 11/05 : Normal LV size and systolic function, with no RWMA , LVEF: 70%, mild aortic stenosis, peak velocity 2.6 m/s, mean gradient 13.2 mmHg, KAIA 2.6 cm squared. Mild tricuspid valve regurgitation. Serial EKG monitoring was done: ST-T wave changes seen on earlier EKG settled.Patient continued to remain in A. fib with mostly well controlled heart rate. Patient's Eliquis 2.5 mg q12 h was discontinued: He was started on heparin drip without bolus. Along with aspirin 81 mg p.o. daily. Given the fact that his hemoglobin was 7.6, he was also transfused 1 unit of blood, CBC was monitored, heparin drip and aspirin had to be discontinued as there was a drop in hemoglobin, T0 6.9 , he received total 4 units PRBC.CBC was continued to monitor. Protonix 40 mg every 12 hours daily IV. FOBT : Negative Status: Acute (2) Heart failure, chronic, with acute decompensation: Ac on chronic Decompensated HFpEF : Improving BIMUEX 2 MG Q12 H Daily. Metolazone 5 mg p.o. daily I/O Charting Daily Weight Currently LOS :Negative; 3.1 L s K>4 ,Mg >2 Status: Acute Qualifiers: Heart failure type: unspecified Qualified Code(s): I50.9 - Heart failure, unspecified (3) Anasarca: Likely secondary to decompensated heart failure, decompensated liver cirrhosis. Patient is being diuresed, as well as has got Albumin total of 4 bags of 25 g. Lower extremity swelling is improving. 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 S/P 4Us PRBC Current plan is to transfuse to maintain hemoglobin greater than 7 around 8. Status: Acute (6) Generalized weakness: Status: Acute (7) Aortic stenosis: Mild to moderate aortic valve stenosis with a valve area of 1.4 Peak velocity of 2.6 m/s with a peak gradient of 27 and a mean gradient of 13 mmHg. Status: Acute Qualifiers: Cardiac valve disease etiology: nonrheumatic Qualified Code(s): I35.0 - Nonrheumatic aortic (valve) stenosis (8) Liver, cirrhosis, portal: Continue Lactulose Continue Rifxamin 550 mg po BID Status: Acute (9) Hepatic encephalopathy: Grade 1 hepatic encephalopathy: Minimal changes in behavior : Improving Currently on lactulose Blood culture: Urine culture has grown: Enterococcus faecalis. Continue rifaximin Currently on levofloxacin Status: Acute (10) UTI (urinary tract infection): Recurrent: Enterococcus faecalis UTI: On last admission he was treated with ampicillin. We will start him on levofloxacin 750 mg IV daily Repeat urine culture Status: Acute (11) Atrial fibrillation: Currently Rate Controlled. Metoprolol tartrate 12.5 mg every 12 hours daily Initially on Low dose Eliquis 2/5 mg q12 h daily has been stopped. Status: Acute Qualifiers: Atrial fibrillation type: unspecified chronic Qualified Code(s): I48.20 - Chronic atrial fibrillation, unspecified (12) Hyperkalemia: Resolved Monitor BMP Status: Acute (13) Seizure: Continue Keppra 750 mg PO BID Status: Acute (14) Hyponatremia: Hypervolemic hyponatremia: Status: Acute (15) Thrombocytopenia: Multifactorial: Monitor platelet count for now: Status: Acute Additional A&P Information Anasarca Liver cirrhosis with underlying CHF exacerbation No active signs of hepatic encephalopathy Patient has been compliant with his Lasix 40 mg twice a day, spironolactone 25 mg daily, low-sodium diet and 1.5 L of fluid intake, he has moderate aortic stenosis, takes lactulose and rifaximin on daily basis Despite all of these measures patient is gaining weight, low albumin detected I will discontinue spironolactone and potassium supplementation due to hyperkalemia and use Bumex for now, judicious use of diuretics considering moderate aortic stenosis Considering his symptoms of chest pain, shortness of breath and presyncopal events he will need evaluation for aortic valve replacement especially considering hemolytic anemia which could be due to aortic stenosis, recently he finished steroid taper for possibility of autoimmune hemolytic anemia when low haptoglobin and high LDH were detected, Dr. Shukla recommended discontinuing steroids, patient is denying active GI bleed he takes Eliquis for his A. fib I would not repeat echo at this time Patient is willing to go to [facility] if he gets accepted by cardiology for evaluation of aortic valve replacement, will try to diurese him and obtain euvolemic status during this hospitalization Cardiac diet DVT prophylaxis not indicated CODE STATUS: Discussed with the patient and his he wants a trial of CPR or intubation but does not want to stay on mechanical ventilator for prolonged period of time if there is no meaningful recovery Attestations Medical Necessity Statement*: Patient needs to be in hospital for the management of anasarca. Coding Level of Care Code Acute Energy Control Officer for g Fwd Diagnoses NSTEMI (non-ST elevated myocardial infarction) I21.4 Heart failure, chronic, with acute decompensation I50.9 Heart failure type: unspecified Anasarca R60.1 Hyperbilirubinemia E80.6 Anemia D64.9 Generalized weakness R53.1 Aortic stenosis I35.0 Cardiac valve disease etiology: nonrheumatic Liver, cirrhosis, portal K74.69 Hepatic encephalopathy K72.90 UTI (urinary tract infection) N39.0 Atrial fibrillation I48.20 Atrial fibrillation type: unspecified chronic Hyperkalemia E87.5 Seizure R56.9 Hyponatremia E87.1 Thrombocytopenia D69.6
[2020-11-07] MEDS: levofloxacin-dextrose 5 % 750 MG/150 ML PREMIX 100 MG IV (16:15)
[2020-11-07] MEDS: atorvastatin 40 mg Tablet 20 MG PO (17:49)
--- NOTE | 2020-11-07 20:03 | PC.NURSE ---
Bedside report received from Bre AMATO. patient is resting in bed with the covers over his head. He is alert and orientated. Patient voices no complaints of pain or other needs at this time. Nurse will continue to monitor.
[2020-11-08] VITALS (21 sets, daily range): BP systolic 99–110; BP diastolic 51–65; PULSE 66–82; RESP 14–24; TEMP 36.6–36.8; O2SAT 93–99
[2020-11-08] MEDS: ipratropium-albuterol 3 mL Neb INHALATION ×7 (00:17→23:06)
[2020-11-08 06:25] LABS: Basophils % 0.1 %; Eosinophils # 0.1 10^3/uL (0.0-0.8); Eosinophils % 1.2 %; Hemoglobin 8.2 g/dL (11.7-16.6); Lymphocytes % 10.4 %; Mean Corpuscular HGB Conc 32.8 g/dL (30.0-36.0); Mean Corpuscular Hemoglobin 33.3 pg (28.0-34.0); Mean Corpuscular Volume 101.6 fL (80-94); Mean Platelet Volume 10.9 fL (7.4-10.4); Monocytes # 0.9 10^3/uL (0.2-0.9); Monocytes % 9.7 %; Neutrophils # 7.19 10^3/uL (1.8-7.7); Neutrophils % 77.6 %; Nucleated Red Blood Cells % 0 %; Platelet Count 72 10^3/cmm (130-400); Red Blood Count 2.46 10^6/uL (4.1-5.3); Red Cell Distribution Width 18.2 % (12.1-15.1); White Blood Count 9.3 10^3/uL (4.0-10.0)
[2020-11-08 06:46] LABS: Alanine Aminotransferase 38 U/L (0-41); Albumin Level 3.1 g/dL (3.5-5.2); Alkaline Phosphatase 78 IU/L (40-130); Anion Gap 16.4 (5-19); Aspartate Amino Transferase 49 U/L (0-40); Blood Urea Nitrogen 53 mg/dL (8-23); Calcium 8.3 mg/dL (8.5-10.5); Carbon Dioxide 26 mmol/L (22-29); Chloride 91 mmol/L (98-107); Globulin 2.1 g/dL (1.3-4.6); Glucose 103 mg/dL (65-115); Magnesium 2.2 mg/dL (1.7-2.3); Osmolality Calculated 285 mOsm/kg (285-295); Potassium 3.4 mmol/L (3.5-5.1); Sodium 130 mmol/L (136-145); Total Bilirubin 5.1 mg/dL (0.15-1.2); Total Protein 5.2 g/dL (6.6-8.7)
[2020-11-08] MEDS: potassium chloride ER 20 mEq Tablet 40 MEQ PO (08:32)
[2020-11-08] MEDS: pantoprazole DR 40 mg Tablet PO (08:32)
[2020-11-08] MEDS: sodium chloride 1 gm Tablet PO ×2 (08:32→17:20)
[2020-11-08] MEDS: metoprolol tartrate 25 mg Tablet 12.5 MG PO ×2 (08:32→21:28)
[2020-11-08] MEDS: levETIRAcetam 500 mg Tablet 750 MG PO ×2 (08:32→17:20)
[2020-11-08] MEDS: lactulose oral liq 20 gm/30 mL UDC 45 GM PO ×2 (08:33→17:21)
[2020-11-08] MEDS: folic acid 1 mg Tablet PO (08:33)
--- NOTE | 2020-11-08 09:35 | PC.SOCIAL ---
*IMM* Patient was gave the important message from MCR. This service writer initialled and placed copy in the chart. Patient received a copy as well.
--- NOTE | 2020-11-08 09:59 | PM.PN ---
Subjective Subjective: Interval history: Patient is doing well. No complaints of chest pain. Vitals/I&O/Wt Last Vital Signs Temp 98.3 F 11/08/20 07:44 Pulse 70 11/08/20 07:44 Resp 18 11/08/20 07:44 BP 99/55 11/08/20 07:44 Pulse Ox 96 11/08/20 07:44 11/07/20 11/08/20 11/08/20 22:59 06:59 14:59 Intake Total 610 / 970 360 / 360 Output Total 1350 / 1350 1200 / 2550 Balance -740 / -380 -1200 / -1580 360 / 360 Physical Exam Narrative: EXAM NARRATIVE: Narrative EXAM NARRATIVE: Gen: Alert and oriented x 3 HEENT: EOMI, pallor+, No icterus RS: decreased breath sound at bases CVS: S1, S2 irregular. Grade 3 systolic murmur in RUSB MEDICAL ASSISTANT FLOAT: AAOx 3, No FND GI: soft, NT, ND, BS+ Ext: 3+ bilateral edema+, anasarca; No clubbing Urinary Catheter Management^: Saravia: Cath Placed During This Visit: yes Reason for Continuing Indwelling Catheter: Accurate Measurement of Urinary Output in Critically Ill Patients Urinary Catheter Date of Insertion: 11/04/20 Urinary Catheter Time of Insertion: 16:32 Data : 11/09/20 04:36 11/09/20 04:36 Micro: Microbiology 11/06/20 16:30 Blood Culture - Preliminary Blood NEGATIVE TO DATE 11/06/20 16:20 Blood Culture - Preliminary Blood NEGATIVE TO DATE 11/07/20 00:10 Occult Blood (FIT) - Final Stool Routine Collection A&P Assessment and plan (1) NSTEMI (non-ST elevated myocardial infarction): NSTEMI: Type 2 in setting of anemia and CHF is a possibility. He has h/o GI bleed, gastric ulcer as well as epistaxis. He is anemic as well. Recent stress test was normal. -Normal LV function and no RWMA on echo. ST-T wave changes in gildardo-lateral leads resolved -Troponin T baseline at 54 increased to 60 then to 76. No indication for invascie procedure at this time -No ASA d/t drop in Hb, on lipitor (may have to stop based on liver function). -On low dose beta desiree. Status: Acute (2) Anasarca: Anasarca likely is a combination of decompensated liver cirrhosis and CHF. Status: Acute (3) Heart failure, chronic, with acute decompensation: HFpEF -Normal LV and RV systolic function. -Renal function worsened today. However clinically patient appears to be volume overloaeded. continue Bumex and metolazone. Status: Acute Qualifiers: Heart failure type: unspecified Qualified Code(s): I50.9 - Heart failure, unspecified (4) Atrial fibrillation: Paroxysmal A. fib with RVR. -Currently on metoprolol tartrate 12.5 mg p.o. twice daily Status: Acute Qualifiers: Atrial fibrillation type: unspecified chronic Qualified Code(s): I48.20 - Chronic atrial fibrillation, unspecified Additional A&P Information Mild on recent echo Liver cirrohosis Macrocytic anemia: Received 3 units of packed red blood cells. Hepatic encephalopathy : On rifaximin and lactulose Hyponatremia RAÚL Abnormal liver enzymes. Thank you for allowing me to participate in patient's care. Please feel free to call with questions or concerns. Attestations Medical Necessity Statement*: Care expected to cross 2 midnights Coding Level of Care Code Acute Policy Director for [facility] Fw Diagnoses NSTEMI (non-ST elevated myocardial infarction) I21.4 Anasarca R60.1 Heart failure, chronic, with acute decompensation I50.9 Heart failure type: unspecified Atrial fibrillation I48.20 Atrial fibrillation type: unspecified chronic
--- NOTE | 2020-11-08 11:42 | PM.PN ---
Subjective Subjective: Interval history: Patient was seen and examined this morning,overall no significant change since yesterday,denied any chest pain. Medications: Reviewed: Yes Medication Review Details: Current Medications Acetaminophen (Acetaminophen 325 Mg Tablet) 650 mg PO Q6H PRN PRN Reason: MILD PAIN Last Admin: 11/05/20 14:38 Dose: 650 mg Documented by: Albuterol/Ipratropium (Ipratropium-Albuterol 3 Ml Neb) 3 ml INHALATION Q4H.RESPIRATORY [facility] Last Admin: 11/07/20 16:22 Dose: 3 ml Documented by: Atorvastatin Calcium (Atorvastatin 40 Mg Tablet) 20 mg PO DAILY@17 [facility] Last Admin: 11/06/20 17:07 Dose: 20 mg Documented by: Bumetanide (Bumetanide 0.25 Mg/Ml Sdv 4 Ml) 2 mg IV BID [facility] Last Admin: 11/07/20 09:21 Dose: 2 mg Documented by: Cyclobenzaprine HCl (Cyclobenzaprine 10 Mg Tablet) 5 mg PO BID PRN PRN Reason: MUSCLE CRAMPS Last Admin: 11/07/20 09:22 Dose: 5 mg Documented by: Folic Acid (Folic Acid 1 Mg Tablet) 1 mg PO DAILY@08 [facility] Last Admin: 11/07/20 09:26 Dose: 1 mg Documented by: Levofloxacin/Dextrose (Levaquin-D5w) 750 mg in 150 mls @ 100 mls/hr IV Q24H [facility]; Protocol Last Admin: 11/07/20 16:15 Dose: 100 mls/hr Documented by: Sodium Chloride (Sodium Chloride 0.9%) 250 mls @ 0 mls/hr IV .Q0M PRN PRN Reason: PRBC TRANSFUSION Last Infusion: 11/07/20 00:25 Dose: Infused Documented by: Lactulose (Lactulose Oral Liq 20 Gm/30 Ml Udc) 45 gm PO BID [facility] Last Admin: 11/07/20 09:21 Dose: 45 gm Documented by: Levetiracetam (Levetiracetam 500 Mg Tablet) 750 mg PO BID@08,17 [facility] Last Admin: 11/07/20 09:22 Dose: 750 mg Documented by: Metolazone (Metolazone 5 Mg Tablet) 5 mg PO DAILY [facility] Last Admin: 11/07/20 09:26 Dose: 5 mg Documented by: Metoprolol Tartrate (Metoprolol Tartrate 25 Mg Tablet) 12.5 mg PO BID@0900,2100 [facility] Last Admin: 11/07/20 09:26 Dose: 12.5 mg Documented by: Nitroglycerin (Nitroglycerin 0.4 Mg Sublingual Tablet) 0.4 mg SUBLINGUAL Q5M PRN PRN Reason: CHEST PAIN Last Admin: 11/05/20 13:00 Dose: 1 cap Documented by: Ondansetron HCl (Ondansetron 2 Mg/Ml Sdv 2 Ml) 4 mg IVP Q6H PRN PRN Reason: NAUSEA AND VOMITING Last Admin: 11/05/20 20:50 Dose: 4 mg Documented by: Pantoprazole Sodium (Pantoprazole 40 Mg Sdv) 40 mg IVP Q12H [facility] Last Admin: 11/07/20 05:18 Dose: 40 mg Documented by: Rifaximin (Rifaximin 550 Mg Tablet) 550 mg PO BID@0800,1700 [facility]; Protocol Last Admin: 11/07/20 09:33 Dose: 550 mg Documented by: Fluticasone/Salmeterol (Fluticasone-Salmeterol 250-50 Diskus) 1 puff INHALATION BID.RESPIRATORY [facility] Last Admin: 11/07/20 08:58 Dose: 1 puff Documented by: Sodium Chloride (Sodium Chloride 1 Gm Tablet) 1 gm PO BID [facility] Last Admin: 11/07/20 09:22 Dose: 1 gm Documented by: Spironolactone (Spironolactone 25 Mg Tablet) 25 mg PO DAILY@08 [facility] Last Admin: 11/07/20 09:26 Dose: 25 mg Documented by: Vitals/I&O/Wt Last Vital Signs Temp 98.3 F 11/08/20 07:44 Pulse 75 11/08/20 11:27 Resp 18 11/08/20 11:21 BP 99/55 11/08/20 07:44 Pulse Ox 95 11/08/20 11:21 11/07/20 11/08/20 11/08/20 22:59 06:59 14:59 Intake Total 610 / 970 460 / 460 Output Total 1350 / 1350 1200 / 2550 Balance -740 / -380 -1200 / -1580 460 / 460 Physical Exam Const: COMMON NORMALS: patient oriented x3 HENMT: COMMON NORMALS: normocephalic and atraumatic HEAD & SCALP: normocephalic and atraumatic Resp: EFFORT & INSPECTION: Yes symmetric chest movement OTHER: B/L minimal basal crackles present in both lungs leger. Cardio: COMMON NORMALS: regular rate, regular rhythm, S1 normal heart sound present, S2 normal heart sound present, No gallops present (Cardio), No murmurs present (Cardio), No rub (Cardio) and Peripheral pulses 2+ throughout RATE: regular rate RHYTHM: regular rhythm HEART SOUNDS: S1 normal heart sound present and S2 normal heart sound present PERIPHERAL PULSES: Peripheral pulses 2+ throughout GI: COMMON NORMALS: Normal to inspection, nondistended, normoactive bowel sounds present, Soft to palpation, non-tender, No hepatosplenomegaly present and no masses AUSCULTATION: Yes normoactive bowel sounds PALPATION: Yes Soft to palpation and Yes No hepatosplenomegaly present RECTAL EXAM: Yes deferred Extremity: NARRATIVE EXTREMITY EXAM: 3+ B/L Pitting Edema Present in both lower extremity Neuro: COMMON NORMALS: patient oriented x3 Urinary Catheter Management^: Saravia: Cath Placed During This Visit: yes Reason for Continuing Indwelling Catheter: Accurate Measurement of Urinary Output in Critically Ill Patients Urinary Catheter Date of Insertion: 11/04/20 Urinary Catheter Time of Insertion: 16:32 Data : 11/08/20 04:45 11/08/20 04:45 Micro: Microbiology 11/06/20 16:30 Blood Culture - Preliminary Blood NEGATIVE TO DATE 11/06/20 16:20 Blood Culture - Preliminary Blood NEGATIVE TO DATE 11/07/20 00:10 Occult Blood (FIT) - Final Stool Routine Collection A&P Assessment and plan (1) NSTEMI (non-ST elevated myocardial infarction): NSTEMI type II: Patient was experiencing substernal chest pain on 11/06 around noon, EKG done at that time: Showed atrial fibrillation with ST depression and moderate T wave abnormality new as compared to prior EKGs, suggestive of anterior ischemia. Troponin trend was done : Baseline troponin: 54, 2-hour troponin: 60, 2-hour delta :6.12 , 6-hour troponin: 76, 6-hour delta: 15 2D echo: 11/05 : Normal LV size and systolic function, with no RWMA , LVEF: 70%, mild aortic stenosis, peak velocity 2.6 m/s, mean gradient 13.2 mmHg, KAIA 2.6 cm squared. Mild tricuspid valve regurgitation. Serial EKG monitoring was done: ST-T wave changes seen on earlier EKG settled.Patient continued to remain in A. fib with mostly well controlled heart rate. Patient's Eliquis 2.5 mg q12 h was discontinued: He was started on heparin drip without bolus. Along with aspirin 81 mg p.o. daily. Given the fact that his hemoglobin was 7.6, he was also transfused 1 unit of blood, CBC was monitored, heparin drip and aspirin had to be discontinued as there was a drop in hemoglobin, T0 6.9 , he received total 4 units PRBC.CBC was continued to monitor. Protonix 40 mg every 12 hours daily IV.Switched to Protonix 40 mg po daily. FOBT : Negative Status: Acute (2) Heart failure, chronic, with acute decompensation: Ac on chronic Decompensated HFpEF : Improving BIMUEX 2 MG Q12 H Daily. Metolazone 5 mg p.o. daily I/O Charting Daily Weight Currently LOS :Negative; 3.1 L s K>4 ,Mg >2 Status: Acute Qualifiers: Heart failure type: unspecified Qualified Code(s): I50.9 - Heart failure, unspecified (3) Anasarca: Likely secondary to decompensated heart failure, decompensated liver cirrhosis. Patient is being diuresed, as well as has got Albumin total of 4 bags of 25 g. Lower extremity swelling is improving. 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 S/P 4Us PRBC Current plan is to transfuse to maintain hemoglobin greater than 7 around 8. Status: Acute (6) Generalized weakness: Status: Acute (7) Aortic stenosis: Mild to moderate aortic valve stenosis with a valve area of 1.4 Peak velocity of 2.6 m/s with a peak gradient of 27 and a mean gradient of 13 mmHg. Status: Acute Qualifiers: Cardiac valve disease etiology: nonrheumatic Qualified Code(s): I35.0 - Nonrheumatic aortic (valve) stenosis (8) Liver, cirrhosis, portal: Continue Lactulose Continue Rifxamin 550 mg po BID Status: Acute (9) Hepatic encephalopathy: Grade 1 hepatic encephalopathy: Minimal changes in behavior : Improving Currently on lactulose Blood culture: Urine culture has grown: Enterococcus faecalis. Continue rifaximin Currently on levofloxacin Status: Acute (10) RAÚL (acute kidney injury): RAÚL on CKD: Likely likely prerenal. Baseline serum creatinine: 1- 1.3. Hold diuresis Monitor BMP Status: Acute (11) UTI (urinary tract infection): Recurrent: Enterococcus faecalis UTI: On last admission he was treated with ampicillin. We will start him on levofloxacin 750 mg IV daily Repeat urine culture Status: Acute (12) Atrial fibrillation: Currently Rate Controlled. Metoprolol tartrate 12.5 mg every 12 hours daily Initially on Low dose Eliquis 2/5 mg q12 h daily has been stopped. Status: Acute Qualifiers: Atrial fibrillation type: unspecified chronic Qualified Code(s): I48.20 - Chronic atrial fibrillation, unspecified (13) Hyperkalemia: Resolved Monitor BMP Status: Acute (14) Seizure: Continue Keppra 750 mg PO BID Status: Acute (15) Hyponatremia: Hypervolemic hyponatremia: Serum sodium is improvin Status: Acute (16) Thrombocytopenia: Multifactorial: Monitor platelet count for now: Status: Acute Additional A&P Information Anasarca Liver cirrhosis with underlying CHF exacerbation No active signs of hepatic encephalopathy Patient has been compliant with his Lasix 40 mg twice a day, spironolactone 25 mg daily, low-sodium diet and 1.5 L of fluid intake, he has moderate aortic stenosis, takes lactulose and rifaximin on daily basis Despite all of these measures patient is gaining weight, low albumin detected I will discontinue spironolactone and potassium supplementation due to hyperkalemia and use Bumex for now, judicious use of diuretics considering moderate aortic stenosis Considering his symptoms of chest pain, shortness of breath and presyncopal events he will need evaluation for aortic valve replacement especially considering hemolytic anemia which could be due to aortic stenosis, recently he finished steroid taper for possibility of autoimmune hemolytic anemia when low haptoglobin and high LDH were detected, Dr. Shukla recommended discontinuing steroids, patient is denying active GI bleed he takes Eliquis for his A. fib I would not repeat echo at this time Patient is willing to go to [facility] if he gets accepted by cardiology for evaluation of aortic valve replacement, will try to diurese him and obtain euvolemic status during this hospitalization Cardiac diet DVT prophylaxis not indicated CODE STATUS: Discussed with the patient and his he wants a trial of CPR or intubation but does not want to stay on mechanical ventilator for prolonged period of time if there is no meaningful recovery Attestations Medical Necessity Statement*: Patient needs to be in hospital for management of above defined problems. Coding Level of Care Code Acute Twister In for g Fwd Diagnoses NSTEMI (non-ST elevated myocardial infarction) I21.4 Heart failure, chronic, with acute decompensation I50.9 Heart failure type: unspecified Anasarca R60.1 Hyperbilirubinemia E80.6 Anemia D64.9 Generalized weakness R53.1 Aortic stenosis I35.0 Cardiac valve disease etiology: nonrheumatic Liver, cirrhosis, portal K74.69 Hepatic encephalopathy K72.90 RAÚL (acute kidney injury) N17.9 UTI (urinary tract infection) N39.0 Atrial fibrillation I48.20 Atrial fibrillation type: unspecified chronic Hyperkalemia E87.5 Seizure R56.9 Hyponatremia E87.1 Thrombocytopenia D69.6
[2020-11-08] MEDS: levofloxacin-dextrose 5 % 750 MG/150 ML PREMIX 100 MG IV (15:01)
[2020-11-08] MEDS: atorvastatin 40 mg Tablet 20 MG PO (17:20)
[2020-11-08 17:58] LABS: Anion Gap 15.4 (5-19); Blood Urea Nitrogen 56 mg/dL (8-23); Calcium 8.4 mg/dL (8.5-10.5); Carbon Dioxide 27 mmol/L (22-29); Chloride 91 mmol/L (98-107); Glucose 104 mg/dL (65-115); Osmolality Calculated 286 mOsm/kg (285-295); Potassium 3.4 mmol/L (3.5-5.1); Sodium 130 mmol/L (136-145)
[2020-11-08] MEDS: cyclobenzaprine 10 mg Tablet 5 MG PO (21:33)
[2020-11-09] VITALS (20 sets, daily range): BP systolic 95–104; BP diastolic 55–66; PULSE 71–80; RESP 16–26; TEMP 36.6–36.7; O2SAT 94–98
[2020-11-09] MEDS: guaiFENesin 100 mg/5 mL UDC 10 mL 200 MG PO (01:51)
--- NOTE | 2020-11-09 01:57 | PC.NURSE ---
NURSING NOTE: PT C/O DRY, HACKING COUGH AT APPROXIMATELY 0130 THIS MORNING . PLACED CALL TO DR. NARANJO AND RECEIVED ORDERS FOR ROBITUSSIN 10ML Q4H PRN COUGH. MEDICATION GIVEN ORDERED. WILL CONTINUE TO MONITOR.
[2020-11-09] MEDS: ipratropium-albuterol 3 mL Neb INHALATION ×6 (03:18→23:20)
[2020-11-09 06:16] LABS: Basophils % 0.3 %; Eosinophils # 0.1 10^3/uL (0.0-0.8); Eosinophils % 1.4 %; Hematocrit 24.2 % (42.0-52.0); Hemoglobin 7.9 g/dL (11.7-16.6); Lymphocytes # 0.6 10^3/uL (0.8-4.8); Mean Corpuscular HGB Conc 32.6 g/dL (30.0-36.0); Mean Corpuscular Hemoglobin 33.1 pg (28.0-34.0); Mean Corpuscular Volume 101.3 fL (80-94); Mean Platelet Volume 10.9 fL (7.4-10.4); Monocytes # 0.9 10^3/uL (0.2-0.9); Monocytes % 10.8 %; Neutrophils # 6.29 10^3/uL (1.8-7.7); Neutrophils % 78.9 %; Nucleated Red Blood Cells % 0 %; Platelet Count 64 10^3/cmm (130-400); Red Blood Count 2.39 10^6/uL (4.1-5.3); Red Cell Distribution Width 18.2 % (12.1-15.1)
[2020-11-09 06:32] LABS: Alanine Aminotransferase 34 U/L (0-41); Albumin Level 3.6 g/dL (3.5-5.2); Alkaline Phosphatase 72 IU/L (40-130); Aspartate Amino Transferase 48 U/L (0-40); Blood Urea Nitrogen 61 mg/dL (8-23); Calcium 8.5 mg/dL (8.5-10.5); Carbon Dioxide 28 mmol/L (22-29); Chloride 87 mmol/L (98-107); Glucose 108 mg/dL (65-115); Magnesium 2.3 mg/dL (1.7-2.3); Osmolality Calculated 274 mOsm/kg (285-295); Sodium 123 mmol/L (136-145); Total Bilirubin 4.8 mg/dL (0.15-1.2); Total Protein 5.6 g/dL (6.6-8.7)
[2020-11-09 08:55] LABS: Anion Gap 14.3 (5-19); Blood Urea Nitrogen 62 mg/dL (8-23); Calcium 8.2 mg/dL (8.5-10.5); Carbon Dioxide 27 mmol/L (22-29); Chloride 90 mmol/L (98-107); Glucose 137 mg/dL (65-115); Osmolality Calculated 284 mOsm/kg (285-295); Potassium 4.3 mmol/L (3.5-5.1); Sodium 127 mmol/L (136-145)
[2020-11-09] MEDS: lactulose oral liq 20 gm/30 mL UDC 45 GM PO ×2 (09:18→17:17)
[2020-11-09] MEDS: pantoprazole DR 40 mg Tablet PO (09:19)
[2020-11-09] MEDS: guaiFENesin-dextromethorphan UDC 10 mL 5 ML PO (09:19)
[2020-11-09] MEDS: sodium chloride 1 gm Tablet PO ×2 (09:19→17:17)
[2020-11-09] MEDS: levETIRAcetam 500 mg Tablet 750 MG PO ×2 (09:19→17:17)
[2020-11-09] MEDS: metoprolol tartrate 25 mg Tablet 12.5 MG PO ×2 (09:19→21:15)
[2020-11-09] MEDS: folic acid 1 mg Tablet PO (09:19)
--- NOTE | 2020-11-09 09:35 | PM.PN ---
Subjective Subjective: Interval history: Patient is doing better. But he is still significantly volume overloaded Vitals/I&O/Wt Last Vital Signs Temp 98.0 F 11/09/20 07:43 Pulse 76 11/09/20 08:15 Resp 18 11/09/20 08:15 BP 95/55 11/09/20 07:43 Pulse Ox 94 11/09/20 08:15 11/08/20 11/09/20 11/09/20 22:59 06:59 14:59 Intake Total 370 / 1070 200 / 1270 240 / 240 Output Total 750 / 750 550 / 1300 Balance -380 / 320 -350 / -30 240 / 240 Physical Exam Narrative: EXAM NARRATIVE: Gen: Alert and oriented x 3 HEENT: EOMI, pallor+, No icterus RS: decreased breath sound at bases CVS: S1, S2 irregular. Grade 3 systolic murmur in RUSB PUMP TESTER: AAOx 3, No FND GI: soft, NT, ND, BS+ Ext: 3+ bilateral edema+, anasarca; No clubbing Urinary Catheter Management^: Saravia: Cath Placed During This Visit: yes Reason for Continuing Indwelling Catheter: Other Urinary Catheter Date of Insertion: 11/04/20 Urinary Catheter Time of Insertion: 16:32 Data : 11/10/20 04:19 11/10/20 04:19 A&P Assessment and plan (1) NSTEMI (non-ST elevated myocardial infarction): NSTEMI: Type 2 in setting of anemia and CHF is a possibility. He has h/o GI bleed, gastric ulcer as well as epistaxis. He is anemic as well. Recent stress test was normal. -Normal LV function and no RWMA on echo. ST-T wave changes in gildardo-lateral leads resolved -Troponin T baseline at 54 increased to 60 then to 76. No indication for invascie procedure at this time -No ASA d/t drop in Hb, on lipitor (may have to stop based on liver function). -On low dose beta desiree. Status: Acute (2) Anasarca: Anasarca likely is a combination of decompensated liver cirrhosis and CHF. Status: Acute (3) Heart failure, chronic, with acute decompensation: HFpEF -Normal LV and RV systolic function. -Patient is still volume overloaded. Didnot receive diuretics for the last 2 days. Will recommend reinitiating Status: Acute Qualifiers: Heart failure type: unspecified Qualified Code(s): I50.9 - Heart failure, unspecified (4) Atrial fibrillation: Paroxysmal A. fib with RVR. -Currently on metoprolol tartrate 12.5 mg p.o. twice daily Status: Acute Qualifiers: Atrial fibrillation type: unspecified chronic Qualified Code(s): I48.20 - Chronic atrial fibrillation, unspecified Additional A&P Information Mild on recent echo Liver cirrohosis Macrocytic anemia: Received 3 units of packed red blood cells. Hepatic encephalopathy : On rifaximin and lactulose Hyponatremia RAÚL Abnormal liver enzymes. Thank you for allowing me to participate in patient's care. Please feel free to call with questions or concerns. Attestations Medical Necessity Statement*: Care expected to cross 2 midnights. Coding Level of Care Code Acute Audio Visual Technician for [facility] Fwd Diagnoses NSTEMI (non-ST elevated myocardial infarction) I21.4 Anasarca R60.1 Heart failure, chronic, with acute decompensation I50.9 Heart failure type: unspecified Atrial fibrillation I48.20 Atrial fibrillation type: unspecified chronic
[2020-11-09] MEDS: atorvastatin 40 mg Tablet 20 MG PO (17:17)
[2020-11-09] MEDS: bumetanide 0.25 mg/mL SDV 4 mL 2 MG IV (18:06)
--- NOTE | 2020-11-09 18:06 | P.PN_ITS ---
Subjective Subjective: Interval history: c/o dyspnea, persisting anasarca Medications: Reviewed: Yes Medication Review Details: Current Medications Acetaminophen (Acetaminophen 325 Mg Tablet) 650 mg PO Q6H PRN PRN Reason: MILD PAIN Last Admin: 11/05/20 14:38 Dose: 650 mg Documented by: Albuterol/Ipratropium (Ipratropium-Albuterol 3 Ml Neb) 3 ml INHALATION Q4H.RESPIRATORY [facility] Last Admin: 11/07/20 16:22 Dose: 3 ml Documented by: Atorvastatin Calcium (Atorvastatin 40 Mg Tablet) 20 mg PO DAILY@17 [facility] Last Admin: 11/06/20 17:07 Dose: 20 mg Documented by: Bumetanide (Bumetanide 0.25 Mg/Ml Sdv 4 Ml) 2 mg IV BID [facility] Last Admin: 11/07/20 09:21 Dose: 2 mg Documented by: Cyclobenzaprine HCl (Cyclobenzaprine 10 Mg Tablet) 5 mg PO BID PRN PRN Reason: MUSCLE CRAMPS Last Admin: 11/07/20 09:22 Dose: 5 mg Documented by: Folic Acid (Folic Acid 1 Mg Tablet) 1 mg PO DAILY@08 [facility] Last Admin: 11/07/20 09:26 Dose: 1 mg Documented by: Levofloxacin/Dextrose (Levaquin-D5w) 750 mg in 150 mls @ 100 mls/hr IV Q24H [facility]; Protocol Last Admin: 11/07/20 16:15 Dose: 100 mls/hr Documented by: Sodium Chloride (Sodium Chloride 0.9%) 250 mls @ 0 mls/hr IV .Q0M PRN PRN Reason: PRBC TRANSFUSION Last Infusion: 11/07/20 00:25 Dose: Infused Documented by: Lactulose (Lactulose Oral Liq 20 Gm/30 Ml Udc) 45 gm PO BID [facility] Last Admin: 11/07/20 09:21 Dose: 45 gm Documented by: Levetiracetam (Levetiracetam 500 Mg Tablet) 750 mg PO BID@08,17 [facility] Last Admin: 11/07/20 09:22 Dose: 750 mg Documented by: Metolazone (Metolazone 5 Mg Tablet) 5 mg PO DAILY [facility] Last Admin: 11/07/20 09:26 Dose: 5 mg Documented by: Metoprolol Tartrate (Metoprolol Tartrate 25 Mg Tablet) 12.5 mg PO BID@0900,2100 [facility] Last Admin: 11/07/20 09:26 Dose: 12.5 mg Documented by: Nitroglycerin (Nitroglycerin 0.4 Mg Sublingual Tablet) 0.4 mg SUBLINGUAL Q5M PRN PRN Reason: CHEST PAIN Last Admin: 11/05/20 13:00 Dose: 1 cap Documented by: Ondansetron HCl (Ondansetron 2 Mg/Ml Sdv 2 Ml) 4 mg IVP Q6H PRN PRN Reason: NAUSEA AND VOMITING Last Admin: 11/05/20 20:50 Dose: 4 mg Documented by: Pantoprazole Sodium (Pantoprazole 40 Mg Sdv) 40 mg IVP Q12H [facility] Last Admin: 11/07/20 05:18 Dose: 40 mg Documented by: Rifaximin (Rifaximin 550 Mg Tablet) 550 mg PO BID@0800,1700 [facility]; Protocol Last Admin: 11/07/20 09:33 Dose: 550 mg Documented by: Fluticasone/Salmeterol (Fluticasone-Salmeterol 250-50 Diskus) 1 puff INHALATION BID.RESPIRATORY [facility] Last Admin: 11/07/20 08:58 Dose: 1 puff Documented by: Sodium Chloride (Sodium Chloride 1 Gm Tablet) 1 gm PO BID [facility] Last Admin: 11/07/20 09:22 Dose: 1 gm Documented by: Spironolactone (Spironolactone 25 Mg Tablet) 25 mg PO DAILY@08 [facility] Last Admin: 11/07/20 09:26 Dose: 25 mg Documented by: Vitals/I&O/Wt Last Vital Signs Temp 97.8 F 11/09/20 14:54 Pulse 75 11/09/20 15:27 Resp 18 11/09/20 15:27 BP 102/57 11/09/20 14:54 Pulse Ox 98 11/09/20 15:27 11/09/20 11/09/20 11/09/20 06:59 14:59 22:59 Intake Total 200 / 1270 240 / 240 Output Total 550 / 1300 150 / 150 100 / 250 Balance -350 / -30 90 / 90 -100 / -10 Physical Exam Narrative: EXAM NARRATIVE: GEN: Awake, alert and oriented, no acute distress CVS: S1S2 N RS: CTA B/L except crackles over RUL Abd: Soft, nt/nd , bs+ MATERIAL CHECKER: no focal neuro deficits \ EXT: gross anasarca, 3+ pitting edema B/L Urinary Catheter Management^: Saravia: Cath Placed During This Visit: yes Reason for Continuing Indwelling Catheter: Other Urinary Catheter Date of Insertion: 11/04/20 Urinary Catheter Time of Insertion: 16:32 Data : 11/09/20 04:36 11/09/20 08:21 A&P Assessment and plan (1) NSTEMI (non-ST elevated myocardial infarction): NSTEMI type II: likely precipated by deman supply mismatch in shannen setting of anemia and CHF exacerbation 2D echo: 11/05 : Normal LV size and systolic function, with no RWMA , LVEF: 70%, mild aortic stenosis, peak velocity 2.6 m/s, mean gradient 13.2 mmHg, KAIA 2.6 cm squared. s/p PRBC transfuion for HB 7.6 FOBT : Negative, h.o GIB +, off ASA and eliquis currently Status: Acute (2) Heart failure, chronic, with acute decompensation: Ac on chronic Decompensated HFpEF Diuretics have been on hold on 11/08 due to RAÚL Worsening anasarca and crcakle son exam today, worsned dyspnea Resume diuresis with Bumex and metolazone Monitor Cr closely Status: Acute Qualifiers: Heart failure type: unspecified Qualified Code(s): I50.9 - Heart failure, unspecified (3) Anasarca: Likely secondary to decompensated heart failure, decompensated liver cirrhosis. Patient is being diuresed, as well as has got Albumin total of 4 bags of 25 g. resumed diuretics today, spirinolactone remains on hold Status: Acute (4) Hyperbilirubinemia: Likely 2/2 to Congestive Hepatopathy, as well as indirect hyperbilirubinemia secondary to hemolytic anemia secondary to likely 2/2 moderate aortic stenosis, Monitor T.Bili Trend: 5.8--> 4.7 Direct Bili : 1.80 LDH: 327 Hapto:10 Status: Acute (5) Anemia: Likely multifactorial secondary to chronic GI blood loss, cannot conclusively rule out MDS, hemolysis. S/P 4Us PRBC Current plan is to transfuse to maintain hemoglobin ~8. Status: Acute (6) Generalized weakness: Status: Acute (7) Aortic stenosis: Mild to moderate aortic valve stenosis with a valve area of 1.4 Peak velocity of 2.6 m/s with a peak gradient of 27 and a mean gradient of 13 mmHg. Status: Acute Qualifiers: Cardiac valve disease etiology: nonrheumatic Qualified Code(s): I35.0 - Nonrheumatic aortic (valve) stenosis (8) Liver, cirrhosis, portal: Continue Lactulose Continue Rifxamin 550 mg po BID Status: Acute (9) Hepatic encephalopathy: Grade 1 hepatic encephalopathy: Minimal changes in behavior : Improving Currently on lactulose Blood culture: Urine culture has grown: Enterococcus faecalis for which he received levofloxacin x 4 days, discontinue today, suspect this to be colonization from Saravia urine. Continue rifaximin Status: Acute (10) RAÚL (acute kidney injury): RAÚL on CKD Status: Acute (11) UTI (urinary tract infection): this is more likely to be colonization D/c abx and monitor closely Status: Acute (12) Atrial fibrillation: Currently Rate Controlled. Metoprolol tartrate 12.5 mg every 12 hours daily Initially on Low dose Eliquis 2/5 mg q12 h daily has been stopped. Status: Acute Qualifiers: Atrial fibrillation type: unspecified chronic Qualified Code(s): I48.20 - Chronic atrial fibrillation, unspecified (13) Hyperkalemia: Resolved Monitor BMP Status: Acute (14) Seizure: Continue Keppra 750 mg PO BID Status: Acute (15) Hyponatremia: Hypervolemic hyponatremia: Serum sodium is improvin Status: Acute (16) Thrombocytopenia: Multifactorial: Monitor platelet count for now: Status: Acute Attestations Medical Necessity Statement*: close monitoring of HB, resume iv diuresis, gerda tor renal function closely Coding Level of Care Code Acute Bait Man for [facility] Fwd Diagnoses NSTEMI (non-ST elevated myocardial infarction) I21.4 Heart failure, chronic, with acute decompensation I50.9 Heart failure type: unspecified Anasarca R60.1 Hyperbilirubinemia E80.6 Anemia D64.9 Generalized weakness R53.1 Aortic stenosis I35.0 Cardiac valve disease etiology: nonrheumatic Liver, cirrhosis, portal K74.69 Hepatic encephalopathy K72.90 RAÚL (acute kidney injury) N17.9 UTI (urinary tract infection) N39.0 Atrial fibrillation I48.20 Atrial fibrillation type: unspecified chronic Hyperkalemia E87.5 Seizure R56.9 Hyponatremia E87.1 Thrombocytopenia D69.6
[2020-11-10] VITALS (22 sets, daily range): BP systolic 95–112; BP diastolic 52–69; PULSE 60–98; RESP 16–26; TEMP 36.3–36.8; O2SAT 92–98
[2020-11-10] MEDS: ipratropium-albuterol 3 mL Neb INHALATION ×6 (03:14→23:21)
[2020-11-10 05:06] LABS: Basophils % 0.3 %; Eosinophils # 0.1 10^3/uL (0.0-0.8); Eosinophils % 1.2 %; Hematocrit 25.6 % (42.0-52.0); Hemoglobin 8.3 g/dL (11.7-16.6); Lymphocytes # 0.7 10^3/uL (0.8-4.8); Lymphocytes % 10.1 %; Mean Corpuscular HGB Conc 32.4 g/dL (30.0-36.0); Mean Corpuscular Hemoglobin 32.8 pg (28.0-34.0); Mean Corpuscular Volume 101.2 fL (80-94); Mean Platelet Volume 11.1 fL (7.4-10.4); Monocytes # 0.8 10^3/uL (0.2-0.9); Monocytes % 10.2 %; Neutrophils % 77.7 %; Nucleated Red Blood Cells % 0 %; Platelet Count 66 10^3/cmm (130-400); Red Blood Count 2.53 10^6/uL (4.1-5.3); Red Cell Distribution Width 17.9 % (12.1-15.1); White Blood Count 7.3 10^3/uL (4.0-10.0)
[2020-11-10 05:55] LABS: Alanine Aminotransferase 34 U/L (0-41); Albumin Level 3.6 g/dL (3.5-5.2); Alkaline Phosphatase 71 IU/L (40-130); Aspartate Amino Transferase 52 U/L (0-40); Blood Urea Nitrogen 72 mg/dL (8-23); Calcium 8.3 mg/dL (8.5-10.5); Carbon Dioxide 26 mmol/L (22-29); Chloride 91 mmol/L (98-107); Globulin 1.9 g/dL (1.3-4.6); Glucose 108 mg/dL (65-115); Magnesium 2.4 mg/dL (1.7-2.3); Osmolality Calculated 290 mOsm/kg (285-295); Sodium 129 mmol/L (136-145); Total Bilirubin 5.4 mg/dL (0.15-1.2); Total Protein 5.5 g/dL (6.6-8.7)
[2020-11-10] MEDS: sodium chloride 1 gm Tablet PO ×2 (08:27→17:12)
[2020-11-10] MEDS: metOLazone 5 MG Tablet PO (08:27)
[2020-11-10] MEDS: pantoprazole DR 40 mg Tablet PO (08:27)
[2020-11-10] MEDS: lactulose oral liq 20 gm/30 mL UDC 45 GM PO ×2 (08:28→17:13)
[2020-11-10] MEDS: metoprolol tartrate 25 mg Tablet 12.5 MG PO ×2 (08:28→21:00)
[2020-11-10] MEDS: levETIRAcetam 500 mg Tablet 750 MG PO ×2 (08:28→17:13)
[2020-11-10] MEDS: folic acid 1 mg Tablet PO (08:28)
[2020-11-10] MEDS: guaiFENesin-dextromethorphan UDC 10 mL 5 ML PO (08:29)
[2020-11-10] MEDS: bumetanide 0.25 mg/mL SDV 4 mL 2 MG IV ×2 (08:50→18:40)
--- NOTE | 2020-11-10 10:32 | P.PN_ITS ---
Subjective Subjective: Interval history: Patient is doing well. His creatinine has been worsening but has good urine output Vitals/I&O/Wt Last Vital Signs Temp 97.4 F L 11/10/20 07:24 Pulse 65 11/10/20 09:46 Resp 18 11/10/20 09:41 BP 112/67 11/10/20 07:24 Pulse Ox 96 11/10/20 09:41 11/09/20 11/10/20 11/10/20 22:59 06:59 14:59 Intake Total 120 / 360 120 / 480 240 / 240 Output Total 350 / 500 600 / 1100 Balance -230 / -140 -480 / -620 240 / 240 Physical Exam Narrative: EXAM NARRATIVE: Gen: Alert and oriented x 3 HEENT: EOMI, pallor+, No icterus RS: decreased breath sound at bases CVS: S1, S2 irregular. Grade 3 systolic murmur in RUSB COMPLAINT SUPERVISOR: AAOx 3, No FND GI: soft, NT, ND, BS+ Ext: 3+ bilateral edema+, anasarca; No clubbing Urinary Catheter Management^: Saravia: Cath Placed During This Visit: yes Reason for Continuing Indwelling Catheter: Accurate Measurement of Urinary Output in Critically Ill Patients Urinary Catheter Date of Insertion: 11/04/20 Urinary Catheter Time of Insertion: 16:32 Data : 11/11/20 03:18 11/11/20 03:18 A&P Assessment and plan (1) NSTEMI (non-ST elevated myocardial infarction): NSTEMI: Type 2 in setting of anemia and CHF is a possibility. He has h/o GI bleed, gastric ulcer as well as epistaxis. He is anemic as well. Recent stress test was normal. -Normal LV function and no RWMA on echo. ST-T wave changes in gildardo-lateral leads resolved -Troponin T baseline at 54 increased to 60 then to 76. No indication for invascie procedure at this time -No ASA d/t drop in Hb, on lipitor (may have to stop based on liver function). -On low dose beta desiree. Status: Acute (2) Anasarca: Anasarca likely is a combination of decompensated liver cirrhosis and CHF. Status: Acute (3) Heart failure, chronic, with acute decompensation: HFpEF -Normal LV and RV systolic function. -Patient is still volume overloaded. Didnot receive diuretics for the last 2 days. Patient is getting diuresis. His creatinine has worsened but has good urine output. Continue for now. Status: Acute Qualifiers: Heart failure type: unspecified Qualified Code(s): I50.9 - Heart failure, unspecified (4) Atrial fibrillation: Paroxysmal A. fib with RVR. -Currently on metoprolol tartrate 12.5 mg p.o. twice daily Status: Acute Qualifiers: Atrial fibrillation type: unspecified chronic Qualified Code(s): I48.20 - Chronic atrial fibrillation, unspecified Additional A&P Information Mild on recent echo Liver cirrohosis Macrocytic anemia: Received 3 units of packed red blood cells. Hepatic encephalopathy : On rifaximin and lactulose Hyponatremia RAÚL Abnormal liver enzymes. Thank you for allowing me to participate in patient's care. Please feel free to call with questions or concerns. Attestations Medical Necessity Statement*: Care expected to cross 2 midnights. 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
--- NOTE | 2020-11-10 10:49 | PC.SOCIAL ---
IMM Updated Updated pt on Pg 2 IMM. No questions voiced. Provided pt a copy. Signed, dated, & timed copy in chart.
--- NOTE | 2020-11-10 14:30 | PC.NURSE ---
Received orders to d/c barnard catheter. Nurse took barnard out. Pt tolerated it well. Pt had some irritation and itching afterwards, performed pericare and symptoms were relieved.
--- NOTE | 2020-11-10 15:38 | PM.PN ---
Subjective Subjective: Interval history: No acute interim events, creatinine trended up to 2.3, sodium at 129. Overnight developed bleeding around the meatus at insertion of Saravia catheter, small blood clot noted, urine is clear, plan to remove Saravia catheter today and encourage patient to use the urinal. Medications: Reviewed: Yes Medication Review Details: Current Medications Acetaminophen (Acetaminophen 325 Mg Tablet) 650 mg PO Q6H PRN PRN Reason: MILD PAIN Last Admin: 11/05/20 14:38 Dose: 650 mg Documented by: Albuterol/Ipratropium (Ipratropium-Albuterol 3 Ml Neb) 3 ml INHALATION Q4H.RESPIRATORY [facility] Last Admin: 11/07/20 16:22 Dose: 3 ml Documented by: Atorvastatin Calcium (Atorvastatin 40 Mg Tablet) 20 mg PO DAILY@17 [facility] Last Admin: 11/06/20 17:07 Dose: 20 mg Documented by: Bumetanide (Bumetanide 0.25 Mg/Ml Sdv 4 Ml) 2 mg IV BID [facility] Last Admin: 11/07/20 09:21 Dose: 2 mg Documented by: Cyclobenzaprine HCl (Cyclobenzaprine 10 Mg Tablet) 5 mg PO BID PRN PRN Reason: MUSCLE CRAMPS Last Admin: 11/07/20 09:22 Dose: 5 mg Documented by: Folic Acid (Folic Acid 1 Mg Tablet) 1 mg PO DAILY@08 [facility] Last Admin: 11/07/20 09:26 Dose: 1 mg Documented by: Levofloxacin/Dextrose (Levaquin-D5w) 750 mg in 150 mls @ 100 mls/hr IV Q24H [facility]; Protocol Last Admin: 11/07/20 16:15 Dose: 100 mls/hr Documented by: Sodium Chloride (Sodium Chloride 0.9%) 250 mls @ 0 mls/hr IV .Q0M PRN PRN Reason: PRBC TRANSFUSION Last Infusion: 11/07/20 00:25 Dose: Infused Documented by: Lactulose (Lactulose Oral Liq 20 Gm/30 Ml Udc) 45 gm PO BID [facility] Last Admin: 11/07/20 09:21 Dose: 45 gm Documented by: Levetiracetam (Levetiracetam 500 Mg Tablet) 750 mg PO BID@08,17 [facility] Last Admin: 11/07/20 09:22 Dose: 750 mg Documented by: Metolazone (Metolazone 5 Mg Tablet) 5 mg PO DAILY [facility] Last Admin: 11/07/20 09:26 Dose: 5 mg Documented by: Metoprolol Tartrate (Metoprolol Tartrate 25 Mg Tablet) 12.5 mg PO BID@0900,2100 [facility] Last Admin: 11/07/20 09:26 Dose: 12.5 mg Documented by: Nitroglycerin (Nitroglycerin 0.4 Mg Sublingual Tablet) 0.4 mg SUBLINGUAL Q5M PRN PRN Reason: CHEST PAIN Last Admin: 11/05/20 13:00 Dose: 1 cap Documented by: Ondansetron HCl (Ondansetron 2 Mg/Ml Sdv 2 Ml) 4 mg IVP Q6H PRN PRN Reason: NAUSEA AND VOMITING Last Admin: 11/05/20 20:50 Dose: 4 mg Documented by: Pantoprazole Sodium (Pantoprazole 40 Mg Sdv) 40 mg IVP Q12H [facility] Last Admin: 11/07/20 05:18 Dose: 40 mg Documented by: Rifaximin (Rifaximin 550 Mg Tablet) 550 mg PO BID@0800,1700 [facility]; Protocol Last Admin: 11/07/20 09:33 Dose: 550 mg Documented by: Fluticasone/Salmeterol (Fluticasone-Salmeterol 250-50 Diskus) 1 puff INHALATION BID.RESPIRATORY [facility] Last Admin: 11/07/20 08:58 Dose: 1 puff Documented by: Sodium Chloride (Sodium Chloride 1 Gm Tablet) 1 gm PO BID [facility] Last Admin: 11/07/20 09:22 Dose: 1 gm Documented by: Spironolactone (Spironolactone 25 Mg Tablet) 25 mg PO DAILY@08 [facility] Last Admin: 11/07/20 09:26 Dose: 25 mg Documented by: Vitals/I&O/Wt Last Vital Signs Temp 97.9 F 11/10/20 14:55 Pulse 68 11/10/20 14:55 Resp 18 11/10/20 14:55 BP 95/52 11/10/20 14:55 Pulse Ox 95 11/10/20 14:55 11/10/20 11/10/20 11/10/20 06:59 14:59 22:59 Intake Total 120 / 480 360 / 360 Output Total 600 / 1100 225 / 225 Balance -480 / -620 135 / 135 Physical Exam Narrative: EXAM NARRATIVE: GEN: Awake, alert and oriented, no acute distress CVS: S1S2 N RS: CTA B/L except crackles over RUL Abd: Soft, nt/nd , bs+ HOP TRAINER: no focal neuro deficits EXT: gross anasarca, 3+ pitting edema B/L Urinary Catheter Management^: Saravia: Cath Placed During This Visit: yes, but has since been removed by the nurse Reason for Continuing Indwelling Catheter: Not indwelling catheter Urinary Catheter Date of Insertion: 11/04/20 Urinary Catheter Time of Insertion: 16:32 Date Urinary Catheter Removed: 11/10/20 Time Urinary Catheter Discontinued: 14:00 Data : 11/10/20 04:19 11/10/20 04:19 A&P Assessment and plan (1) NSTEMI (non-ST elevated myocardial infarction): NSTEMI type II: likely precipated by deman supply mismatch in [place] setting of anemia and CHF exacerbation 2D echo: 11/05 : Normal LV size and systolic function, with no RWMA , LVEF: 70%, mild aortic stenosis, peak velocity 2.6 m/s, mean gradient 13.2 mmHg, KAIA 2.6 cm squared. s/p PRBC transfuion for HB 7.6 FOBT : Negative, h.o GIB +, off ASA and eliquis currently Status: Acute (2) Heart failure, chronic, with acute decompensation: Ac on chronic Decompensated HFpEF Continue diuresis with Bumex and metolazone Monitor Cr closely Status: Acute Qualifiers: Heart failure type: unspecified Qualified Code(s): I50.9 - Heart failure, unspecified (3) Anasarca: Likely secondary to decompensated heart failure, decompensated liver cirrhosis. Patient is being diuresed, as well as has got Albumin total of 4 bags of 25 g. resumed diuretics today, spirinolactone remains on hold Status: Acute (4) Hyperbilirubinemia: Likely 2/2 to Congestive Hepatopathy, as well as indirect hyperbilirubinemia secondary to hemolytic anemia secondary to likely 2/2 moderate aortic stenosis, Monitor T.Bili Trend: 5.8--> 4.7 Direct Bili : 1.80 LDH: 327 Hapto:10 Status: Acute (5) Anemia: Likely multifactorial secondary to chronic GI blood loss, cannot conclusively rule out MDS, hemolysis. S/P 4Us PRBC Current plan is to transfuse to maintain hemoglobin ~8. Status: Acute (6) Generalized weakness: Status: Acute (7) Aortic stenosis: Mild to moderate aortic valve stenosis with a valve area of 1.4 Peak velocity of 2.6 m/s with a peak gradient of 27 and a mean gradient of 13 mmHg. Status: Acute Qualifiers: Cardiac valve disease etiology: nonrheumatic Qualified Code(s): I35.0 - Nonrheumatic aortic (valve) stenosis (8) Liver, cirrhosis, portal: Continue Lactulose Continue Rifxamin 550 mg po BID Status: Acute (9) Hepatic encephalopathy: Grade 1 hepatic encephalopathy: Minimal changes in behavior : Improving Currently on lactulose Blood culture: Urine culture has grown: Enterococcus faecalis for which he received levofloxacin x 4 days, discontinue today, suspect this to be colonization from Saravia urine. Continue rifaximin Status: Acute (10) RAÚL (acute kidney injury): RAÚL on CKD Status: Acute (11) UTI (urinary tract infection): this is more likely to be colonization D/c abx and monitor closely Status: Acute (12) Atrial fibrillation: Currently Rate Controlled. Metoprolol tartrate 12.5 mg every 12 hours daily Initially on Low dose Eliquis 2/5 mg q12 h daily has been stopped. Status: Acute Qualifiers: Atrial fibrillation type: unspecified chronic Qualified Code(s): I48.20 - Chronic atrial fibrillation, unspecified (13) Hyperkalemia: Resolved Monitor BMP Status: Acute (14) Seizure: Continue Keppra 750 mg PO BID Status: Acute (15) Hyponatremia: Hypervolemic hyponatremia: Serum sodium is improvin Status: Acute (16) Thrombocytopenia: Multifactorial: Monitor platelet count for now: Status: Acute Attestations Medical Necessity Statement*: decompensated CHF, need for iv diuretics, monitor worsening cr closely Coding Level of Care Code Acute Board Certified Orthodontist for [facility] Diagnoses NSTEMI (non-ST elevated myocardial infarction) I21.4 Heart failure, chronic, with acute decompensation I50.9 Heart failure type: unspecified Anasarca R60.1 Hyperbilirubinemia E80.6 Anemia D64.9 Generalized weakness R53.1 Aortic stenosis I35.0 Cardiac valve disease etiology: nonrheumatic Liver, cirrhosis, portal K74.69 Hepatic encephalopathy K72.90 RAÚL (acute kidney injury) N17.9 UTI (urinary tract infection) N39.0 Atrial fibrillation I48.20 Atrial fibrillation type: unspecified chronic Hyperkalemia E87.5 Seizure R56.9 Hyponatremia E87.1 Thrombocytopenia D69.6
[2020-11-10] MEDS: atorvastatin 40 mg Tablet 20 MG PO (17:13)
[2020-11-11] VITALS (21 sets, daily range): BP systolic 94–114; BP diastolic 55–68; PULSE 50–82; RESP 17–24; TEMP 36.5–36.9; O2SAT 94–98
[2020-11-11] MEDS: ipratropium-albuterol 3 mL Neb INHALATION ×6 (03:28→23:26)
[2020-11-11 04:27] LABS: Basophils % 0.3 %; Eosinophils # 0.1 10^3/uL (0.0-0.8); Eosinophils % 1.5 %; Hematocrit 26.5 % (42.0-52.0); Hemoglobin 8.7 g/dL (11.7-16.6); Lymphocytes # 0.6 10^3/uL (0.8-4.8); Lymphocytes % 9.9 %; Mean Corpuscular HGB Conc 32.8 g/dL (30.0-36.0); Mean Corpuscular Hemoglobin 33.5 pg (28.0-34.0); Mean Corpuscular Volume 101.9 fL (80-94); Mean Platelet Volume 10.5 fL (7.4-10.4); Monocytes # 0.8 10^3/uL (0.2-0.9); Monocytes % 12.8 %; Neutrophils # 4.84 10^3/uL (1.8-7.7); Neutrophils % 74.9 %; Nucleated Red Blood Cells % 0 %; Platelet Count 62 10^3/cmm (130-400); Red Cell Distribution Width 17.7 % (12.1-15.1); White Blood Count 6.5 10^3/uL (4.0-10.0)
[2020-11-11 04:44] LABS: Alanine Aminotransferase 33 U/L (0-41); Albumin Level 3.4 g/dL (3.5-5.2); Alkaline Phosphatase 81 IU/L (40-130); Anion Gap 15.7 (5-19); Aspartate Amino Transferase 58 U/L (0-40); Blood Urea Nitrogen 80 mg/dL (8-23); Calcium 8.4 mg/dL (8.5-10.5); Carbon Dioxide 27 mmol/L (22-29); Chloride 92 mmol/L (98-107); Glucose 120 mg/dL (65-115); Osmolality Calculated 297 mOsm/kg (285-295); Potassium 3.7 mmol/L (3.5-5.1); Sodium 131 mmol/L (136-145); Total Bilirubin 4.8 mg/dL (0.15-1.2); Total Protein 5.4 g/dL (6.6-8.7)
[2020-11-11] MEDS: lactulose oral liq 20 gm/30 mL UDC 45 GM PO ×2 (08:39→17:16)
[2020-11-11] MEDS: bumetanide 0.25 mg/mL SDV 4 mL 2 MG IV ×2 (08:40→17:16)
[2020-11-11] MEDS: metoprolol tartrate 25 mg Tablet 12.5 MG PO ×2 (08:40→20:33)
[2020-11-11] MEDS: levETIRAcetam 500 mg Tablet 750 MG PO ×2 (08:41→17:18)
[2020-11-11] MEDS: pantoprazole DR 40 mg Tablet PO (08:41)
[2020-11-11] MEDS: sodium chloride 1 gm Tablet PO ×2 (08:41→17:17)
[2020-11-11] MEDS: metOLazone 5 MG Tablet PO (08:42)
[2020-11-11] MEDS: folic acid 1 mg Tablet PO (08:42)
--- NOTE | 2020-11-11 08:49 | P.PN_ITS ---
Subjective Subjective: Interval history: Patient's urine output is decreasing. Elevated Creatinine. Vitals/I&O/Wt Last Vital Signs Temp 97.8 F 11/11/20 07:47 Pulse 50 L 11/11/20 07:47 Resp 17 11/11/20 07:47 BP 94/55 11/11/20 07:47 Pulse Ox 95 11/11/20 07:47 11/10/20 11/11/20 11/11/20 22:59 06:59 14:59 Intake Total 700 / 1060 240 / 1300 360 / 360 Output Total 650 / 875 400 / 1275 300 / 300 Balance 50 / 185 -160 / 25 60 / 60 Physical Exam Narrative: EXAM NARRATIVE: Gen: Alert and oriented x 3 HEENT: EOMI, pallor+, No icterus RS: decreased breath sound at bases CVS: S1, S2 irregular. Grade 3 systolic murmur in RUSB. Significant crackles SPECIAL EDUCATION TUTOR: AAOx 3, No FND GI: soft, NT, ND, BS+ Ext: 3+ bilateral edema+, anasarca; No clubbing Urinary Catheter Management^: Saravia: Cath Placed During This Visit: yes, but has since been removed by the nurse Reason for Continuing Indwelling Catheter: Decision to DC Catheter Urinary Catheter Date of Insertion: 11/04/20 Urinary Catheter Time of Insertion: 16:32 Date Urinary Catheter Removed: 11/10/20 Time Urinary Catheter Discontinued: 15:00 Data : 11/12/20 03:44 11/12/20 03:44 A&P Assessment and plan (1) NSTEMI (non-ST elevated myocardial infarction): NSTEMI: Type 2 in setting of anemia and CHF is a possibility. He has h/o GI bleed, gastric ulcer as well as epistaxis. He is anemic as well. Recent stress test was normal. -Normal LV function and no RWMA on echo. ST-T wave changes in gildardo-lateral leads resolved -Troponin T baseline at 54 increased to 60 then to 76. No indication for invascie procedure at this time -No ASA d/t drop in Hb, on lipitor (may have to stop based on liver function). -On low dose beta desiree. Status: Acute (2) Anasarca: Anasarca likely is a combination of decompensated liver cirrhosis and CHF. Status: Acute (3) Heart failure, chronic, with acute decompensation: HFpEF -Normal LV and RV systolic function. -Patient is still volume overloaded. Patient's uring output is decreasing with increased Cr and BUN. May need to uptitrate diuretics Status: Acute Qualifiers: Heart failure type: unspecified Qualified Code(s): I50.9 - Heart failure, unspecified (4) Atrial fibrillation: Paroxysmal A. fib with RVR. -Currently on metoprolol tartrate 12.5 mg p.o. twice daily Status: Acute Qualifiers: Atrial fibrillation type: unspecified chronic Qualified Code(s): I48.20 - Chronic atrial fibrillation, unspecified Additional A&P Information Mild on recent echo Liver cirrohosis Macrocytic anemia: Received 3 units of packed red blood cells. Hepatic encephalopathy : On rifaximin and lactulose Hyponatremia RAÚL Abnormal liver enzymes. Thank you for allowing me to participate in patient's care. Please feel free to call with questions or concerns. Attestations Medical Necessity Statement*: Care expected to cross 2 midnights. 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
--- NOTE | 2020-11-11 16:37 | XR_ITS ---
WS: [id number] Portable AP upright chest, 11/11/2020 Clinical Data: sob Comparison: Portable chest, 11/06/2020. Findings: There are minimal patchy bilateral opacities which may represent acute pneumonia and/or pul monary vascular congestion. The heart is slightly enlarged. No pneumothorax is present. There are no nodules or masses. Monitor leads on the chest wall. XR/XR chest 1V portable 22201 Impression: 1. Patchy bilateral opacities which could represent diffuse pneumonia or pulmon susana vascular congestion. 2. Cardiomegaly.
[2020-11-11] MEDS: atorvastatin 40 mg Tablet 20 MG PO (17:18)
--- NOTE | 2020-11-11 20:40 | P.PN_ITS ---
Subjective Subjective: Interval history: continues to have significant LE edema, cough more pronounced today , net negative 3L since admission, worsening cough today, crackles on auscultation B/L , L>R Medications: Reviewed: Yes Medication Review Details: Current Medications Acetaminophen (Acetaminophen 325 Mg Tablet) 650 mg PO Q6H PRN PRN Reason: MILD PAIN Last Admin: 11/05/20 14:38 Dose: 650 mg Documented by: Albuterol/Ipratropium (Ipratropium-Albuterol 3 Ml Neb) 3 ml INHALATION Q4H.RESPIRATORY [facility] Last Admin: 11/07/20 16:22 Dose: 3 ml Documented by: Atorvastatin Calcium (Atorvastatin 40 Mg Tablet) 20 mg PO DAILY@17 [facility] Last Admin: 11/06/20 17:07 Dose: 20 mg Documented by: Bumetanide (Bumetanide 0.25 Mg/Ml Sdv 4 Ml) 2 mg IV BID [facility] Last Admin: 11/07/20 09:21 Dose: 2 mg Documented by: Cyclobenzaprine HCl (Cyclobenzaprine 10 Mg Tablet) 5 mg PO BID PRN PRN Reason: MUSCLE CRAMPS Last Admin: 11/07/20 09:22 Dose: 5 mg Documented by: Folic Acid (Folic Acid 1 Mg Tablet) 1 mg PO DAILY@08 [facility] Last Admin: 11/07/20 09:26 Dose: 1 mg Documented by: Levofloxacin/Dextrose (Levaquin-D5w) 750 mg in 150 mls @ 100 mls/hr IV Q24H [facility]; Protocol Last Admin: 11/07/20 16:15 Dose: 100 mls/hr Documented by: Sodium Chloride (Sodium Chloride 0.9%) 250 mls @ 0 mls/hr IV .Q0M PRN PRN Reason: PRBC TRANSFUSION Last Infusion: 11/07/20 00:25 Dose: Infused Documented by: Lactulose (Lactulose Oral Liq 20 Gm/30 Ml Udc) 45 gm PO BID [facility] Last Admin: 11/07/20 09:21 Dose: 45 gm Documented by: Levetiracetam (Levetiracetam 500 Mg Tablet) 750 mg PO BID@08,17 [facility] Last Admin: 11/07/20 09:22 Dose: 750 mg Documented by: Metolazone (Metolazone 5 Mg Tablet) 5 mg PO DAILY [facility] Last Admin: 11/07/20 09:26 Dose: 5 mg Documented by: Metoprolol Tartrate (Metoprolol Tartrate 25 Mg Tablet) 12.5 mg PO BID@0900,2100 [facility] Last Admin: 11/07/20 09:26 Dose: 12.5 mg Documented by: Nitroglycerin (Nitroglycerin 0.4 Mg Sublingual Tablet) 0.4 mg SUBLINGUAL Q5M P RN PRN Reason: CHEST PAIN Last Admin: 11/05/20 13:00 Dose: 1 cap Documented by: Ondansetron HCl (Ondansetron 2 Mg/Ml Sdv 2 Ml) 4 mg IVP Q6H PRN PRN Reason: NAUSEA AND VOMITING Last Admin: 11/05/20 20:50 Dose: 4 mg Documented by: Pantoprazole Sodium (Pantoprazole 40 Mg Sdv) 40 mg IVP Q12H [facility] Last Admin: 11/07/20 05:18 Dose: 40 mg Documented by: Rifaximin (Rifaximin 550 Mg Tablet) 550 mg PO BID@0800,1700 [facility]; Protocol Last Admin: 11/07/20 09:33 Dose: 550 mg Documented by: Fluticasone/Salmeterol (Fluticasone-Salmeterol 250-50 Diskus) 1 puff INHALATION BID.RESPIRATORY [facility] Last Admin: 11/07/20 08:58 Dose: 1 puff Documented by: Sodium Chloride (Sodium Chloride 1 Gm Tablet) 1 gm PO BID [facility] Last Admin: 11/07/20 09:22 Dose: 1 gm Documented by: Spironolactone (Spironolactone 25 Mg Tablet) 25 mg PO DAILY@08 [facility] Last Admin: 11/07/20 09:26 Dose: 25 mg Documented by: Vitals/I&O/Wt Last Vital Signs Temp 98.3 F 11/11/20 19:28 Pulse 82 11/11/20 20:36 Resp 18 11/11/20 20:30 BP 102/55 11/11/20 19:28 Pulse Ox 94 11/11/20 20:30 11/11/20 11/11/20 11/11/20 06:59 14:59 22:59 Intake Total 240 / 1300 840 / 840 480 / 1320 Output Total 400 / 1275 300 / 300 Balance -160 / 25 540 / 540 480 / 1020 Physical Exam Narrative: EXAM NARRATIVE: GEN: Awake, alert and oriented, no acute distress CVS: S1S2 N RS: CTA B/L except crackles over RUL Abd: Soft, nt/nd , bs+ DAIRY HUSBANDMAN: no focal neuro deficits EXT: gross anasarca, 3+ pitting edema B/L Urinary Catheter Management^: Saravia: Cath Placed During This Visit: yes, but has since been removed by the nurse Reason for Continuing Indwelling Catheter: Decision to DC Catheter Urinary Catheter Date of Insertion: 11/04/20 Urinary Catheter Time of Insertion: 16:32 Date Urinary Catheter Removed: 11/10/20 Time Urinary Catheter Discontinued: 15:00 Data : 11/11/20 03:18 11/11/20 03:18 Micro: Microbiology 11/06/20 16:30 Blood Culture - Final Blood NO GROWTH AFTER 5 DAYS 11/06/20 16:20 Blood Culture - Final Blood NO GROWTH AFTER 5 DAYS A&P Assessment and plan (1) NSTEMI (non-ST elevated myocardial infarction): NSTEMI type II: likely precipated by deman supply mismatch in [place] setting of anemia and CHF exacerbation 2D echo: 11/05 : Normal LV size and systolic function, with no RWMA , LVEF: 70%, mild aortic stenosis, peak velocity 2.6 m/s, mean gradient 13.2 mmHg, KAIA 2.6 cm squared. s/p PRBC transfuion for HB 7.6 currently stable FOBT : Negative, h.o GIB +, off ASA and eliquis currently Status: Acute (2) Heart failure, chronic, with acute decompensation: Ac on chronic Decompensated HFpEF Continue diuresis with Bumex and metolazone Curently stable Cr at 2.4, net negative at 3.3L since admission, however still grossly with volume overload Additional 60mg iv lasix today CXR Status: Acute Qualifiers: Heart failure type: unspecified Qualified Code(s): I50.9 - Heart failure, unspecified (3) Anasarca: Likely secondary to decompensated heart failure, decompensated liver cirrhosis. Patient is being diuresed, as well as has got Albumin total of 4 bags of 25 g. Status: Acute (4) Hyperbilirubinemia: Likely 2/2 to Congestive Hepatopathy Status: Acute (5) Anemia: Likely multifactorial secondary to chronic GI blood loss, cannot conclusively rule out MDS, hemolysis. S/P 4Us PRBC Current plan is to transfuse to maintain hemoglobin ~8. Status: Acute (6) Generalized weakness: Status: Acute (7) Aortic stenosis: Mild to moderate aortic valve stenosis with a valve area of 1.4 Status: Acute Qualifiers: Cardiac valve disease etiology: nonrheumatic Qualified Code(s): I35.0 - Nonrheumatic aortic (valve) stenosis (8) Liver, cirrhosis, portal: Continue Lactulose Continue Rifxamin 550 mg po BID Status: Acute (9) Hepatic encephalopathy: Grade 1 hepatic encephalopathy: Minimal changes in behavior : Improving Currently on lactulose Blood culture: Urine culture has grown: Enterococcus faecalis for which he received levofloxacin x 4 days Continue rifaximin Status: Acute (10) RAÚL (acute kidney injury): RAÚL on CKD , cr stable, overall trending up during admission Status: Acute (11) UTI (urinary tract infection): this is more likely to be colonization D/c abx and monitor closely Status: Acute (12) Atrial fibrillation: Currently Rate Controlled. Metoprolol tartrate 12.5 mg every 12 hours daily Initially on Low dose Eliquis 2/5 mg q12 h daily has been stopped. Status: Acute Qualifiers: Atrial fibrillation type: unspecified chronic Qualified Code(s): I48.20 - Chronic atrial fibrillation, unspecified (13) Hyperkalemia: Resolved Monitor BMP Resolved Monitor BMP Status: Acute (14) Seizure: Continue Keppra 750 mg PO BID Continue Keppra 750 mg PO BID Status: Acute (15) Hyponatremia: Hypervolemic hyponatremia: Serum sodium is improvin Status: Acute (16) Thrombocytopenia: Multifactorial: Monitor platelet count for now: Status: Acute Attestations Medical Necessity Statement*: ongoing need for iv diuresis, still with significant volume overload Coding Level of Care Code Acute 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 [facility] Diagnoses NSTEMI (non-ST elevated myocardial infarction) I21.4 Heart failure, chronic, with acute decompensation I50.9 Heart failure type: unspecified Anasarca R60.1 Hyperbilirubinemia E80.6 Anemia D64.9 Generalized weakness R53.1 Aortic stenosis I35.0 Cardiac valve disease etiology: nonrheumatic Liver, cirrhosis, portal K74.69 Hepatic encephalopathy K72.90 RAÚL (acute kidney injury) N17.9 UTI (urinary tract infection) N39.0 Atrial fibrillation I48.20 Atrial fibrillation type: unspecified chronic Hyperkalemia E87.5 Seizure R56.9 Hyponatremia E87.1 Thrombocytopenia D69.6
[2020-11-11] MEDS: FUROsemide 10 mg/mL SDV 10mL 60 MG IVP (21:44)
[2020-11-12] VITALS (20 sets, daily range): BP systolic 90–117; BP diastolic 45–64; PULSE 61–78; RESP 17–24; TEMP 36.3–37.2; O2SAT 92–97
[2020-11-12] MEDS: ipratropium-albuterol 3 mL Neb INHALATION ×6 (04:11→23:54)
[2020-11-12 04:15] LABS: Basophils % 0.3 %; Eosinophils # 0.1 10^3/uL (0.0-0.8); Eosinophils % 1.3 %; Hematocrit 25.3 % (42.0-52.0); Hemoglobin 8.3 g/dL (11.7-16.6); Lymphocytes # 0.6 10^3/uL (0.8-4.8); Lymphocytes % 8.9 %; Mean Corpuscular HGB Conc 32.8 g/dL (30.0-36.0); Mean Corpuscular Hemoglobin 32.8 pg (28.0-34.0); Mean Platelet Volume 10.5 fL (7.4-10.4); Monocytes # 0.9 10^3/uL (0.2-0.9); Monocytes % 14.5 %; Neutrophils # 4.64 10^3/uL (1.8-7.7); Neutrophils % 74.7 %; Nucleated Red Blood Cells % 0 %; Platelet Count 62 10^3/cmm (130-400); Red Blood Count 2.53 10^6/uL (4.1-5.3); Red Cell Distribution Width 17.6 % (12.1-15.1); White Blood Count 6.2 10^3/uL (4.0-10.0)
[2020-11-12 04:59] LABS: Alanine Aminotransferase 35 U/L (0-41); Albumin Level 3.1 g/dL (3.5-5.2); Alkaline Phosphatase 86 IU/L (40-130); Anion Gap 15.2 (5-19); Aspartate Amino Transferase 70 U/L (0-40); Calcium 8.1 mg/dL (8.5-10.5); Carbon Dioxide 27 mmol/L (22-29); Chloride 92 mmol/L (98-107); Globulin 2.3 g/dL (1.3-4.6); Glucose 124 mg/dL (65-115); Magnesium 2.5 mg/dL (1.7-2.3); Osmolality Calculated 300 mOsm/kg (285-295); Potassium 3.2 mmol/L (3.5-5.1); Sodium 131 mmol/L (136-145); Total Bilirubin 4.3 mg/dL (0.15-1.2); Total Protein 5.4 g/dL (6.6-8.7)
[2020-11-12 05:01] LABS: Blood Urea Nitrogen 87 mg/dL (8-23)
[2020-11-12] MEDS: levETIRAcetam 500 mg Tablet 750 MG PO ×2 (08:48→17:57)
[2020-11-12] MEDS: folic acid 1 mg Tablet PO (08:49)
[2020-11-12] MEDS: pantoprazole DR 40 mg Tablet PO (08:49)
[2020-11-12] MEDS: metoprolol tartrate 25 mg Tablet 12.5 MG PO ×2 (08:49→20:02)
[2020-11-12] MEDS: sodium chloride 1 gm Tablet PO ×2 (08:49→17:58)
[2020-11-12] MEDS: metOLazone 5 MG Tablet PO (08:49)
[2020-11-12] MEDS: lactulose oral liq 20 gm/30 mL UDC 45 GM PO ×2 (08:50→17:54)
[2020-11-12] MEDS: bumetanide 0.25 mg/mL SDV 4 mL 2 MG IV (08:53)
--- NOTE | 2020-11-12 10:55 | PC.SOCIAL ---
IMM Update Pg.2 of IMM updated and reviewed with patient, who verbalized understanding. Copy provided.
--- NOTE | 2020-11-12 15:05 | PC.OT ---
Occupational therapy attempted twice today. Patient declined a.m. due to fatigue from participating in physical therapy, and declined afternoon.
--- NOTE | 2020-11-12 17:30 | P.PN_ITS ---
Subjective Subjective: Interval history: Continues to have generalized breathing is a little bit easier today, however still with significant cough. Chest x-ray yesterday showed worsening bilateral infiltrates concerning for pulmonary edema. Medications: Reviewed: Yes Medication Review Details: Current Medications Acetaminophen (Acetaminophen 325 Mg Tablet) 650 mg PO Q6H PRN PRN Reason: MILD PAIN Last Admin: 11/05/20 14:38 Dose: 650 mg Documented by: Albuterol/Ipratropium (Ipratropium-Albuterol 3 Ml Neb) 3 ml INHALATION Q4H.RESPIRATORY DAMIAN Last Admin: 11/07/20 16:22 Dose: 3 ml Documented by: Atorvastatin Calcium (Atorvastatin 40 Mg Tablet) 20 mg PO DAILY@17 [facility] Last Admin: 11/06/20 17:07 Dose: 20 mg Documented by: Bumetanide (Bumetanide 0.25 Mg/Ml Sdv 4 Ml) 2 mg IV BID [facility] Last Admin: 11/07/20 09:21 Dose: 2 mg Documented by: Cyclobenzaprine HCl (Cyclobenzaprine 10 Mg Tablet) 5 mg PO BID PRN PRN Reason: MUSCLE CRAMPS Last Admin: 11/07/20 09:22 Dose: 5 mg Documented by: Folic Acid (Folic Acid 1 Mg Tablet) 1 mg PO DAILY@08 [facility] Last Admin: 11/07/20 09:26 Dose: 1 mg Documented by: Levofloxacin/Dextrose (Levaquin-D5w) 750 mg in 150 mls @ 100 mls/hr IV Q24H [facility]; Protocol Last Admin: 11/07/20 16:15 Dose: 100 mls/hr Documented by: Sodium Chloride (Sodium Chloride 0.9%) 250 mls @ 0 mls/hr IV .Q0M PRN PRN Reason: PRBC TRANSFUSION Last Infusion: 11/07/20 00:25 Dose: Infused Documented by: Lactulose (Lactulose Oral Liq 20 Gm/30 Ml Udc) 45 gm PO BID [facility] Last Admin: 11/07/20 09:21 Dose: 45 gm Documented by: Levetiracetam (Levetiracetam 500 Mg Tablet) 750 mg PO BID@08,17 [facility] Last Admin: 11/07/20 09:22 Dose: 750 mg Documented by: Metolazone (Metolazone 5 Mg Tablet) 5 mg PO DAILY [facility] Last Admin: 11/07/20 09:26 Dose: 5 mg Documented by: Metoprolol Tartrate (Metoprolol Tartrate 25 Mg Tablet) 12.5 mg PO BID@0900,2100 [facility] Last Admin: 11/07/20 09:26 Dose: 12.5 mg Documented by: Nitroglycerin (Nitroglycerin 0.4 Mg Sublingual Tablet) 0.4 mg SUBLINGUAL Q5M PRN PRN Reason: CHEST PAIN Last Admin: 11/05/20 13:00 Dose: 1 cap Documented by: Ondansetron HCl (Ondansetron 2 Mg/Ml Sdv 2 Ml) 4 mg IVP Q6H PRN PRN Reason: NAUSEA AND VOMITING Last Admin: 11/05/20 20:50 Dose: 4 mg Documented by: Pantoprazole Sodium (Pantoprazole 40 Mg Sdv) 40 mg IVP Q12H [facility] Last Admin: 11/07/20 05:18 Dose: 40 mg Documented by: Rifaximin (Rifaximin 550 Mg Tablet) 550 mg PO BID@0800,1700 [facility]; Protocol Last Admin: 11/07/20 09:33 Dose: 550 mg Documented by: Fluticasone/Salmeterol (Fluticasone-Salmeterol 250-50 Diskus) 1 puff INHALATION BID.RESPIRATORY [facility] Last Admin: 11/07/20 08:58 Dose: 1 puff Documented by: Sodium Chloride (Sodium Chloride 1 Gm Tablet) 1 gm PO BID [facility] Last Admin: 11/07/20 09:22 Dose: 1 gm Documented by: Spironolactone (Spironolactone 25 Mg Tablet) 25 mg PO DAILY@08 [facility] Last Admin: 11/07/20 09:26 Dose: 25 mg Documented by: Vitals/I&O/Wt Last Vital Signs Temp 97.5 F L 11/12/20 17:14 Pulse 61 11/12/20 17:14 Resp 20 H 11/12/20 17:14 BP 90/45 11/12/20 17:14 Pulse Ox 94 11/12/20 17:14 11/12/20 11/12/20 11/12/20 06:59 14:59 22:59 Intake Total 350 / 1920 360 / 360 240 / 600 Output Total 460 / 460 250 / 710 Balance 350 / 1620 -100 / -100 -10 / -110 Physical Exam Narrative: EXAM NARRATIVE: GEN: Awake, alert and oriented, no acute distress CVS: S1S2 N RS: CTA B/L except crackles over RUL Abd: Soft, nt/nd , bs+ COUNTY 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: no focal neuro deficits EXT: gross anasarca, 3+ pitting edema B/L Urinary Catheter Management^: Saravia: Cath Placed During This Visit: yes, but has since been removed by the nurse Reason for Continuing Indwelling Catheter: Decision to DC Catheter Urinary Catheter Date of Insertion: 11/04/20 Urinary Catheter Time of Insertion: 16:32 Date Urinary Catheter Removed: 11/10/20 Time Urinary Catheter Discontinued: 15:00 Data : 11/12/20 03:44 11/12/20 03:44 Micro: Microbiology 11/06/20 16:30 Blood Culture - Final Blood NO GROWTH AFTER 5 DAYS 11/06/20 16:20 Blood Culture - Final Blood NO GROWTH AFTER 5 DAYS A&P Assessment and plan (1) NSTEMI (non-ST elevated myocardial infarction): NSTEMI type II: likely precipated by deman supply mismatch in shannen setting of anemia and CHF exacerbation 2D echo: 11/05 : Normal LV size and systolic function, with no RWMA , LVEF: 70%, mild aortic stenosis, peak velocity 2.6 m/s, mean gradient 13.2 mmHg, KAIA 2.6 cm squared. s/p PRBC transfuion for HB 7.6 currently stable FOBT : Negative, h.o GIB +, off ASA and eliquis currently Status: Acute (2) Heart failure, chronic, with acute decompensation: Ac on chronic Decompensated HFpEF Continue diuresis with Bumex and metolazone, inadequate response to diuresis 4 mg IV every 12, continue metolazone at 5 mg p.o. daily. Creatinine bumped up to 2.5, however urine output is approximately 1.2 L/day. Discussed with patient the possibility that aggressive diuresis will likely result in worsening RAÚL and possibility of progressing to hemodialysis cannot be excluded. Patient agreeable to proceed to dialysis if need arises. CXR Status: Acute Qualifiers: Heart failure type: unspecified Qualified Code(s): I50.9 - Heart failure, unspecified (3) Anasarca: Likely secondary to decompensated heart failure, decompensated liver cirrhosis. Patient is being diuresed, as well as has got Albumin total of 4 bags of 25 g. Status: Acute (4) Hyperbilirubinemia: Likely 2/2 to Congestive Hepatopathy Status: Acute (5) Anemia: Likely multifactorial secondary to chronic GI blood loss, cannot co nclusively rule out MDS, hemolysis. S/P 4Us PRBC Current plan is to transfuse to maintain hemoglobin ~8. Status: Acute (6) Generalized weakness: Status: Acute (7) Aortic stenosis: Mild to moderate aortic valve stenosis with a valve area of 1.4 Status: Acute Qualifiers: Cardiac valve disease etiology: nonrheumatic Qualified Code(s): I35.0 - Nonrheumatic aortic (valve) stenosis (8) Liver, cirrhosis, portal: Continue Lactulose Continue Rifxamin 550 mg po BID Status: Acute (9) Hepatic encephalopathy: Grade 1 hepatic encephalopathy: Minimal changes in behavior : Improving Currently on lactulose Blood culture: Urine culture has grown: Enterococcus faecalis for which he received levofloxacin x 4 days Continue rifaximin Status: Acute (10) RAÚL (acute kidney injury): RAÚL on CKD , cr stable, overall trending up during admission Status: Acute (11) UTI (urinary tract infection): this is more likely to be colonization D/c abx and monitor closely Status: Acute (12) Atrial fibrillation: Currently Rate Controlled. Metoprolol tartrate 12.5 mg every 12 hours daily Initially on Low dose Eliquis 2/5 mg q12 h daily has been stopped. Status: Acute Qualifiers: Atrial fibrillation type: unspecified chronic Qualified Code(s): I48.20 - Chronic atrial fibrillation, unspecified (13) Hyperkalemia: Resolved Monitor BMP Resolved Monitor BMP Status: Acute (14) Seizure: Continue Keppra 750 mg PO BID Continue Keppra 750 mg PO BID Status: Acute (15) Hyponatremia: Hypervolemic hyponatremia: Serum sodium is improvin Status: Acute (16) Thrombocytopenia: Multifactorial: Monitor platelet count for now: Status: Acute Attestations 2 Medical Necessity Statement*: Worsening anasarca, need for more aggressive worsening anasarca, need for more aggressive diuresis. 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 for [facility] Diagnoses NSTEMI (non-ST elevated myocardial infarction) I21.4 Heart failure, chronic, with acute decompensation I50.9 Heart failure type: unspecified Anasarca R60.1 Hyperbilirubinemia E80.6 Anemia D64.9 Generalized weakness R53.1 Aortic stenosis I35.0 Cardiac valve disease etiology: nonrheumatic Liver, cirrhosis, portal K74.69 Hepatic encephalopathy K72.90 RAÚL (acute kidney injury) N17.9 UTI (urinary tract infection) N39.0 Atrial fibrillation I48.20 Atrial fibrillation type: unspecified chronic Hyperkalemia E87.5 Seizure R56.9 Hyponatremia E87.1 Thrombocytopenia D69.6
[2020-11-12] MEDS: bumetanide 0.25 mg/mL SDV 4 mL 4 MG IV (17:58)
[2020-11-12] MEDS: atorvastatin 40 mg Tablet 20 MG PO (17:58)
--- NOTE | 2020-11-12 20:15 | PM.PN ---
Subjective Subjective: Interval history: Patient appears lethargic.Still appears volume overloaded Vitals/I&O/Wt Last Vital Signs Temp 98.9 F 11/12/20 19:04 Pulse 71 11/12/20 19:28 Resp 18 11/12/20 19:21 BP 109/59 11/12/20 19:04 Pulse Ox 92 11/12/20 19:21 11/12/20 11/12/20 11/12/20 06:59 14:59 22:59 Intake Total 350 / 1920 360 / 360 240 / 600 Output Total 460 / 460 375 / 835 Balance 350 / 1620 -100 / -100 -135 / -235 Physical Exam Narrative: EXAM NARRATIVE: Gen: Alert and oriented x 3 HEENT: EOMI, pallor+, No icterus RS: decreased breath sound at bases, has crackles bilaterally CVS: S1, S2 irregular. Grade 3 systolic murmur in RUSB. Significant crackles COMBINER OPERATOR: AAOx 3, No FND GI: soft, NT, ND, BS+ Ext: 3+ bilateral edema+, anasarca; No clubbing Urinary Catheter Management^: Saravia: Cath Placed During This Visit: yes, but has since been removed by the nurse Reason for Continuing Indwelling Catheter: Decision to DC Catheter Urinary Catheter Date of Insertion: 11/04/20 Urinary Catheter Time of Insertion: 16:32 Date Urinary Catheter Removed: 11/10/20 Time Urinary Catheter Discontinued: 15:00 Data : 11/12/20 03:44 11/13/20 10:31 Micro: Microbiology 11/06/20 16:30 Blood Culture - Final Blood NO GROWTH AFTER 5 DAYS 11/06/20 16:20 Blood Culture - Final Blood NO GROWTH AFTER 5 DAYS A&P Assessment and plan (1) NSTEMI (non-ST elevated myocardial infarction): NSTEMI: Type 2 in setting of anemia and CHF is a possibility. He has h/o GI bleed, gastric ulcer as well as epistaxis. He is anemic as well. Recent stress test was normal. -Normal LV function and no RWMA on echo. ST-T wave changes in gildardo-lateral leads resolved -Troponin T baseline at 54 increased to 60 then to 76. No indication for invascie procedure at this time -No ASA d/t drop in Hb, on lipitor (may have to stop based on liver function). -On low dose beta desiree. Status: Acute (2) Anasarca: Anasarca likely is a combination of decompensated liver cirrhosis and CHF. Status: Acute (3) Heart failure, chronic, with acute decompensation: HFpEF -Normal LV and RV systolic function. -Patient is still volume overloaded. Patient's uring output is decreasing with increased Cr and BUN. Increase Bumex to 4mg BID IV. Continue Metolazone. Patient may eventually need dialysis if urine output doesnt improve. Can consult nephrology Status: Acute Qualifiers: Heart failure type: unspecified Qualified Code(s): I50.9 - Heart failure, unspecified (4) Atrial fibrillation: Paroxysmal A. fib with RVR. -Currently on metoprolol tartrate 12.5 mg p.o. twice daily Status: Acute Qualifiers: Atrial fibrillation type: unspecified chronic Qualified Code(s): I48.20 - Chronic atrial fibrillation, unspecified Additional A&P Information Mild on recent echo Liver cirrohosis Macrocytic anemia: Received 3 units of packed red blood cells. Hepatic encephalopathy : On rifaximin and lactulose Hyponatremia RAÚL Abnormal liver enzymes. Thank you for allowing me to participate in patient's care. Please feel free to call with questions or concerns. Attestations Medical Necessity Statement*: Care expected to cross 2 midnights. 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
[2020-11-13] VITALS (18 sets, daily range): BP systolic 102–119; BP diastolic 40–63; PULSE 60–78; RESP 15–21; TEMP 36.3–36.8; O2SAT 88–95
[2020-11-13] MEDS: ipratropium-albuterol 3 mL Neb INHALATION ×5 (04:03→20:51)
[2020-11-13] MEDS: bumetanide 0.25 mg/mL SDV 10 mL 4 MG IV (09:21)
[2020-11-13] MEDS: lactulose oral liq 20 gm/30 mL UDC 45 GM PO ×2 (09:21→18:01)
[2020-11-13] MEDS: metoprolol tartrate 25 mg Tablet 12.5 MG PO ×2 (09:22→21:33)
[2020-11-13] MEDS: levETIRAcetam 500 mg Tablet 750 MG PO ×2 (09:22→18:00)
[2020-11-13] MEDS: sodium chloride 1 gm Tablet PO (09:23)
[2020-11-13] MEDS: folic acid 1 mg Tablet PO (09:23)
[2020-11-13] MEDS: pantoprazole DR 40 mg Tablet PO (09:23)
[2020-11-13] MEDS: metOLazone 5 MG Tablet PO ×2 (09:24→18:00)
[2020-11-13 11:25] LABS: Alanine Aminotransferase 35 U/L (0-41); Albumin Level 3.4 g/dL (3.5-5.2); Alkaline Phosphatase 78 IU/L (40-130); Anion Gap 15.9 (5-19); Aspartate Amino Transferase 78 U/L (0-40); Calcium 7.9 mg/dL (8.5-10.5); Carbon Dioxide 28 mmol/L (22-29); Chloride 91 mmol/L (98-107); Globulin 2.3 g/dL (1.3-4.6); Glucose 139 mg/dL (65-115); Osmolality Calculated 304 mOsm/kg (285-295); Sodium 132 mmol/L (136-145); Total Bilirubin 4.1 mg/dL (0.15-1.2); Total Protein 5.7 g/dL (6.6-8.7)
[2020-11-13 11:34] LABS: Blood Urea Nitrogen 91 mg/dL (8-23); Potassium 2.9 mmol/L (3.5-5.1)
--- NOTE | 2020-11-13 11:35 | PC.OT ---
Patient was very confused on this date. Nursing notified. Will attempt later if able.
[2020-11-13] MEDS: potassium chloride ER 20 mEq Tablet 40 MEQ PO (12:40)
[2020-11-13] MEDS: lidocaine 1% 5 ML in potassium chloride premix 100 ML 25 ML IV (12:42)
[2020-11-13] MEDS: FUROsemide 10 mg/mL SDV 10mL 60 MG IVP (16:40)
--- NOTE | 2020-11-13 17:20 | P.CONIM_ITS ---
Providers/Reason For Consult Consulting Physician/Specialty*: Nephrology Reason for Consult*: Eval for RAÚL Attending Physician: Shruti Grant MD Primary Care Provider: Jessica Moreira MD History of Present Illness History of Present Illness Thank you for consultation, today had the pleasure of reviewing Mr. Martinez at the request of Dr. Grant for evaluation of treatment recalcitrant anasarca, hypervolemia. 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 He presented to our facility on 11/03/2020 with increasing shortness of breath, anasarca. As an outpatient he takes combination diuretic therapy with Lasix and spironolactone and claims good compliance with his therapy. Despite increased diuretic therapy, his hypervolemia remains recalcitrant. On Bumex 4 mg IV twice a day, metolazone 5 mg daily, spironolactone 25 mg daily, he did have a reasonable diuresis yesterday producing 1600 mL of urine. He received Lasix 60 mg IV push this evening also. In addition to this he is on albumin and sodium chloride tablets. Following hospitalization his creatinine has trended up and is now up to 2.5 mg/dL with a BUN is also elevated at 91. Sodium levels were low earlier on during his hospital course but is now drifted up to 132, potassium is also low at 2.9. I see a prior history of acute kidney injury, however, baseline serum creatinine remains robust at 1.1 imaging of his kidneys has historically been unremarkable his last abdominal ultrasound scan demonstrated a right kidney that appeared unremarkable with no evidence of hydronephrosis, the left kidney was not identified a CT of the abdomen chest and pelvis in August demonstrated no evidence of hydronephrosis bilaterally. Hemodynamically he has been stable although somewhat soft, his blood pressure has ranged close to 100 systolic. No recent exposure to IV contrast or other potentially nephrotoxic substances except for proton pump inhibitor. Review of Systems Narrative: ROS - 12 point review of systems completed per HPI and subjective assessment, this includes Constitutional: weakness, fatigue Respiratory: SOB on exertion, comfortable at rest CardioVasc: No chest pain, palpitations Gastrointestinal: No nausea, no vomiting Neurological: No seizures, no AMS Derm: No new rashes, lesions or wounds Immunological: No seasonal and no food allergies Meds/Allergies Home Medications and Allergies Home Medications Medication Instructions Recorded Confirmed Last Taken Type albuterol sulfate 90 mcg/actuation 2 puff INHALATION Q6H PRN 06/17/19 11/03/20 Unknown History aerosol inhaler pantoprazole 40 mg tablet,delayed 40 mg PO DAILY@08 tab 06/17/19 11/03/20 0 11/03/20 08:30 History release levetiracetam 750 mg tablet 750 mg PO BID@08,17 06/18/19 11/03/20 11/03/20 08:30 History pravastatin 20 mg tablet 10 mg PO DAILY@17 tab 06/18/19 11/03/20 11/02/20 History folic acid 1 mg PO DAILY@08 12/31/19 11/03/20 11/03/20 08:30 History apixaban 5 mg tablet 2.5 mg PO BID@, tab 04/20/20 11/03/20 11/03/20 08:30 History cholecalciferol (vitamin D3) 3,000 unit PO DAILY@08 08/16/20 11/03/20 11/03/20 08:30 History [Vitamin D3] lactulose 45 ml PO TID@08,,08/16/20 11/03/20 11/03/20 08:30 History spironolactone 25 mg PO DAILY@08 08/16/20 11/03/20 11/03/20 08:30 History cyclobenzaprine 5 mg tablet 5 mg PO BID PRN tab 08/26/20 11/03/20 Unknown History potassium chloride 10 mEq 10 meq PO BID tab 10/09/20 11/03/20 11/03/20 08:30 History tablet,extended release Xifaxan 550 mg PO BID@0800,1700 10/21/20 11/03/20 11/03/20 08:30 History B cmplx 4-vit [id number] 1 tab PO DAILY #30 tab 10/26/20 11/03/20 11/03/20 08:30 Rx furosemide 40 mg PO BID@08,14 10 Days #0 tab 10/26/20 11/03/20 11/03/20 08:30 Rx prednisone See Taper PO DAILY #120 tab 10/26/20 11/03/20 11/03/20 08:30 Rx 60 MG budesonide-formoterol [Symbicort] 2 puff INHALATION BID 11/03/20 11/03/20 Unknown History omega-3 fatty acids [Fish Oil] 1,000 mg PO BID 11/03/20 11/03/20 11/03/20 08:30 History Allergies Allergy/AdvReac Type Severity Reaction Status Date / Time No Known Allergies Allergy Verified 11/03/20 16:02 Current Medications Current Medications Generic Name Dose Route Start Last Admin Trade Name Freq PRN Reason Stop Dose Admin Acetaminophen 650 mg 11/05/20 13:30 11/05/20 14:38 Acetaminophen 325 Mg Tablet PO 650 mg Q6H PRN Administration MILD PAIN Albuterol/Ipratropium 3 ml 11/04/20 20:00 11/13/20 15:56 Ipratropium-Albuterol 3 Ml Neb INHALATION 3 ml Q4H.RESPIRATORY DAMIAN Administration Atorvastatin Calcium 20 mg 11/05/20 17:00 11/12/20 17:58 Atorvastatin 40 Mg Tablet PO 20 mg DAILY@17 DAMIAN Administration Bumetanide 4 mg 11/12/20 18:00 11/13/20 09:29 Bumetanide 0.25 Mg/Ml Sdv 4 Ml IV Not Given BID DAMIAN Bumetanide 4 mg 11/13/20 09:00 11/13/20 09:21 Bumetanide 0.25 Mg/Ml Sdv 10 Ml IV 4 mg BID DAMIAN Administration Cyclobenzaprine HCl 5 mg 11/05/20 13:07 11/08/20 21:33 Cyclobenzaprine 10 Mg Tablet PO 5 mg BID PRN Administration MUSCLE CRAMPS Folic Acid 1 mg 11/04/20 08:00 11/13/20 09:23 Folic Acid 1 Mg Tablet PO 1 mg DAILY@08 DAMIAN Administration Guaifenesin 200 mg 11/09/20 01:45 11/09/20 01:51 Guaifenesin 100 Mg/5 Ml Udc 10 Ml PO 200 mg Q4H PRN Administration COUGH Guaifenesin/Dextromethorphan 5 ml 11/09/20 08:21 06/01/21 08:29 Guaifenesin-Dextromethorphan Udc 10 Ml PO 5 ml Q4H PRN Administration COUGH Albumin Human 25 gm in 100 mls @ 60 mls/hr 11/12/20 18:00 11/13/20 12:29 Albumin IV Infused Q8H DAMIAN Infusion Lactulose 45 gm 11/04/20 09:00 11/13/20 09:21 Lactulose Oral Liq 20 Gm/30 Ml Udc PO 45 gm BID DAMIAN Administration Levetiracetam 750 mg 11/04/20 08:00 11/13/20 09:22 Levetiracetam 500 Mg Tablet PO 750 mg BID@08,17 DAMIAN Administration Metolazone 5 mg 11/06/20 17:00 11/13/20 09:24 Metolazone 5 Mg Tablet PO 5 mg DAILY DAMIAN Administration Metoprolol Tartrate 12.5 mg 11/05/20 13:00 11/13/20 09:22 Metoprolol Tartrate 25 Mg Tablet PO 12.5 mg BID@0900,2100 DAMIAN Administration Nitroglycerin 0.4 mg 11/05/20 12:52 11/05/20 13:00 Nitroglycerin 0.4 Mg Sublingual Tablet SUBLINGUAL 1 cap Q5M PRN Administration CHEST PAIN Ondansetron HCl 4 mg 11/05/20 20:41 11/05/20 20:50 Ondansetron 2 Mg/Ml Sdv 2 Ml IVP 4 mg Q6H PRN Administration NAUSEA AND VOMITING Pantoprazole Sodium 40 mg 11/08/20 09:00 11/13/20 09:[address] 40 Mg Tablet PO 40 mg DAILY DAMIAN Administration Rifaximin 550 mg 11/04/20 08:00 11/13/20 09:23 Rifaximin 550 Mg Tablet PO 550 mg BID@0800,1700 DAMIAN Administration Protocol Fluticasone/Salmeterol 1 puff 11/04/20 20:00 11/13/20 07:14 Fluticasone-Salmeterol 250-50 Diskus INHALATION 1 puff BID.RESPIRATORY DAMIAN Administration Sodium Chloride 1 gm 11/06/20 18:00 11/13/20 09:23 Sodium Chloride 1 Gm Tablet PO 1 gm BID DAMIAN Administration Spironolactone 25 mg 11/06/20 08:00 11/07/20 09:26 Spironolactone 25 Mg Tablet PO 25 mg DAILY@08 DAMIAN Administration PFSH Acute PFSH: Medical History (Updated 11/09/20 @ 07:53 by Ender Krishnan M.D) AAA (abdominal aortic aneurysm) 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 Atrial fibrillation On anticoagulation BPH (benign prostatic hyperplasia) Carotid artery stenosis Diverticulosis Duodenal ulcer Gastritis Hemochromatosis Hemochromatosis Hiatal hernia History of colon polyps Follow-up colonoscopy in 2023 HTN (hypertension) Hyperlipidemia Internal hemorrhoids Liver, cirrhosis, portal Portal hypertension S/P ORIF (open reduction internal fixation) fracture RIGHT HIP Status post placement of implantable loop recorder TIA (transient ischemic attack) Surgical History History of cystoscopy History of esophagogastroduodenoscopy (EGD) History of vasectomy S/P discectomy Status post colonoscopy with polypectomy Family History Mother Stroke Brother [id number] deficiency Denies family history of Anesthesia complication Bleeding disorder Social History Smoking and tobacco status: never smoked Alcohol intake: never Household members: spouse Marital status: Current occupational status: retired Vitals/I&O/Wt Last Vital Signs Temp 97.8 F 11/13/20 15:27 Pulse 74 11/13/20 16:06 Resp 18 11/13/20 16:06 BP 102/58 11/13/20 15:27 Pulse Ox 94 11/13/20 16:06 11/13/20 11/13/20 11/13/20 06:59 14:59 22:59 Intake Total 700 / 1300 460 / 460 Output Total 425 / 1260 800 / 800 Balance 275 / 40 460 / 460 -800 / -340 Physical Exam Narrative: EXAM NARRATIVE: Constitutional: Awake, comfortable HEENT: Wet mucosa, no jvp, non icteric Lungs: Bilaterally discernible wheeze or rales in all lung zones CVS: S1 S2, no murmurs Abdo: Soft, BS ok Ext 4: 2-3+ edema, peripheral perfusion with no cyanosis Neurological: Grossly non-focal Urinary Catheter Management^: Saravia: Cath Placed During This Visit: yes, but has since been removed by the nurse Reason for Continuing Indwelling Catheter: Decision to DC Catheter Urinary Catheter Date of Insertion: 11/04/20 Urinary Catheter Time of Insertion: 16:32 Date Urinary Catheter Removed: 11/10/20 Time Urinary Catheter Discontinued: 15:00 A&P Additional A&P Information 1. 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 I wonder if there is an element of hepatorenal physiology as well. We will send her work-up to include repeat urinalysis with urine sodium, creatinine, protein level. Will check CPK, TSH, uric acid. I will stop salt tablets and albumin given additional volume that this will course. We will stop intermittent doses of Lasix and Bumex and start a Lasix infusion at 10 mg/h, continue spironolactone with elevated dose of 50 mg twice daily and metolazone at an elevated dose of 5 mg twice daily If diuresis is still poor, will consider ultrafiltration over the next couple days. Dose medication for GFR less than 30 Avoid usual nephrotoxic agents Strict I's and O's No need for renal imaging at this time, however, he should have a bladder scan daily by the bedside nurse. 2. Chemistry Hypervolemic hyponatremia on admission, now recovering somewhat. We will continue to follow sodium closely. This is likely secondary to both heart and liver disease. Potassium has been replaced, will monitor closely during hospitalization. 3. Advanced liver disease On combination therapy including rifaximin, lactulose. For possible hepatorenal physiology will add midodrine and octreotide. 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
[2020-11-13] MEDS: midodrine 5 mg TABLET 10 MG PO ×2 (18:00→21:33)
[2020-11-13] MEDS: atorvastatin 40 mg Tablet 20 MG PO (18:00)
[2020-11-13 18:09] LABS: Creatine Phosphokinase 57 U/L (39-308); Thyroid Stimulating Hormone 1.92 uIU/mL (0.27-4.20); Uric Acid 14.2 mg/dL (3.4-7.0)
[2020-11-13] MEDS: octreotide 100 mcg/mL SDV 200 MCG SUBCUT (18:23)
[2020-11-13] MEDS: FUROsemide 100 MG in sodium chloride 0.9% 40 ML IV (18:25)
--- NOTE | 2020-11-13 18:35 | PM.PN ---
Subjective Subjective: Interval history: Patient feels fatigued. BUN worsening. Vitals/I&O/Wt Last Vital Signs Temp 97.8 F 11/13/20 15:27 Pulse 74 11/13/20 16:06 Resp 18 11/13/20 16:06 BP 102/58 11/13/20 15:27 Pulse Ox 94 11/13/20 16:06 11/13/20 11/13/20 11/13/20 06:59 14:59 22:59 Intake Total 700 / 1300 460 / 460 Output Total 425 / 1260 800 / 800 Balance 275 / 40 460 / 460 -800 / -340 Physical Exam Narrative: EXAM NARRATIVE: Gen: Alert and oriented x 3 HEENT: EOMI, pallor+, No icterus RS: decreased breath sound at bases, has crackles bilaterally CVS: S1, S2 irregular. Grade 3 systolic murmur in RUSB. 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: AAOx 3, No FND GI: soft, NT, ND, BS+ Ext: 3+ bilateral edema+, anasarca; No clubbing Urinary Catheter Management^: Saravia: Cath Placed During This Visit: yes, but has since been removed by the nurse Reason for Continuing Indwelling Catheter: Decision to DC Catheter Urinary Catheter Date of Insertion: 11/04/20 Urinary Catheter Time of Insertion: 16:32 Date Urinary Catheter Removed: 11/10/20 Time Urinary Catheter Discontinued: 15:00 Data : 11/14/20 05:50 11/14/20 05:50 A&P Assessment and plan (1) NSTEMI (non-ST elevated myocardial infarction): NSTEMI: Type 2 in setting of anemia and CHF is a possibility. He has h/o GI bleed, gastric ulcer as well as epistaxis. He is anemic as well. Recent stress test was normal. -Normal LV function and no RWMA on echo. ST-T wave changes in gildardo-lateral leads resolved -Troponin T baseline at 54 increased to 60 then to 76. No indication for invascie procedure at this time -No ASA d/t drop in Hb, on lipitor (may have to stop based on liver function). -On low dose beta desiree. Status: Acute (2) Anasarca: Anasarca likely is a combination of decompensated liver cirrhosis and CHF. Status: Acute (3) Heart failure, chronic, with acute decompensation: HFpEF -Normal LV and RV systolic function. -Patient is still volume overloaded. Now Bumex IV 4mg BID and metolazone. Urine output improved since yesterday. Nephrology consulted and patient switched to lasix gtt. Status: Acute Qualifiers: Heart failure type: unspecified Qualified Code(s): I50.9 - Heart failure, unspecified (4) Atrial fibrillation: Paroxysmal A. fib with RVR. -Currently on metoprolol tartrate 12.5 mg p.o. twice daily Status: Acute Qualifiers: Atrial fibrillation type: unspecified chronic Qualified Code(s): I48.20 - Chronic atrial fibrillation, unspecified Additional A&P Information Mild on recent echo Liver cirrohosis Macrocytic anemia: Received 3 units of packed red blood cells. Hepatic encephalopathy : On rifaximin and lactulose Hyponatremia RAÚL Abnormal liver enzymes. Thank you for allowing me to participate in patient's care. Please feel free to call with questions or concerns. Attestations Medical Necessity Statement*: Care expected to cross 2 midnights. Coding Level of Care Code Acute Live In Companion for [facility] Fwd Diagnoses NSTEMI (non-ST elevated myocardial infarction) I21.4 Anasarca R60.1 Heart failure, chronic, with acute decompensation I50.9 Heart failure type: unspecified Atrial fibrillation I48.20 Atrial fibrillation type: unspecified chronic
--- NOTE | 2020-11-13 19:04 | P.PN_ITS ---
Subjective Subjective: Interval history: Continues to have gross anasarca, LE swelling appears unchanged, urine output ~800cc , crackles B/L on lung exam, feels overall unchanged , cr at 2.5 Medications: Reviewed: Yes Medication Review Details: Current Medications Acetaminophen (Acetaminophen 325 Mg Tablet) 650 mg PO Q6H PRN PRN Reason: MILD PAIN Last Admin: 11/05/20 14:38 Dose: 650 mg Documented by: Albuterol/Ipratropium (Ipratropium-Albuterol 3 Ml Neb) 3 ml INHALATION Q4H.RESP IRATORY [facility] Last Admin: 11/07/20 16:22 Dose: 3 ml Documented by: Atorvastatin Calcium (Atorvastatin 40 Mg Tablet) 20 mg PO DAILY@17 [facility] Last Admin: 11/06/20 17:07 Dose: 20 mg Documented by: Bumetanide (Bumetanide 0.25 Mg/Ml Sdv 4 Ml) 2 mg IV BID [facility] Last Admin: 11/07/20 09:21 Dose: 2 mg Documented by: Cyclobenzaprine HCl (Cyclobenzaprine 10 Mg Tablet) 5 mg PO BID PRN PRN Reason: MUSCLE CRAMPS Last Admin: 11/07/20 09:22 Dose: 5 mg Documented by: Folic Acid (Folic Acid 1 Mg Tablet) 1 mg PO DAILY@08 [facility] Last Admin: 11/07/20 09:26 Dose: 1 mg Documented by: Levofloxacin/Dextrose (Levaquin-D5w) 750 mg in 150 mls @ 100 mls/hr IV Q24H [facility]; Protocol Last Admin: 11/07/20 16:15 Dose: 100 mls/hr Documented by: Sodium Chloride (Sodium Chloride 0.9%) 250 mls @ 0 mls/hr IV .Q0M PRN PRN Reason: PRBC TRANSFUSION Last Infusion: 11/07/20 00:25 Dose: Infused Documented by: Lactulose (Lactulose Oral Liq 20 Gm/30 Ml Udc) 45 gm PO BID [facility] Last Admin: 11/07/20 09:21 Dose: 45 gm Documented by: Levetiracetam (Levetiracetam 500 Mg Tablet) 750 mg PO BID@08,17 [facility] Last Admin: 11/07/20 09:22 Dose: 750 mg Documented by: Metolazone (Metolazone 5 Mg Tablet) 5 mg PO DAILY [facility] Last Admin: 11/07/20 09:26 Dose: 5 mg Documented by: Metoprolol Tartrate (Metoprolol Tartrate 25 Mg Tablet) 12.5 mg PO BID@0900,2100 [facility] Last Admin: 11/07/20 09:26 Dose: 12.5 mg Documented by: Nitroglycerin (Nitroglycerin 0.4 Mg Sublingual Tablet) 0.4 mg SUBLINGUAL Q5M PRN PRN Reason: CHEST PAIN Last Admin: 11/05/20 13:00 Dose: 1 cap Documented by: Ondansetron HCl (Ondansetron 2 Mg/Ml Sdv 2 Ml) 4 mg IVP Q6H PRN PRN Reason: NAUSEA AND VOMITING Last Admin: 11/05/20 20:50 Dose: 4 mg Documented by: Pantoprazole Sodium (Pantoprazole 40 Mg Sdv) 40 mg IVP Q12H [facility] Last Admin: 11/07/20 05:18 Dose: 40 mg Documented by: Rifaximin (Rifaximin 550 Mg Tablet) 550 mg PO BID@0800,1700 [facility]; Protocol Last Admin: 11/07/20 09:33 Dose: 550 mg Documented by: Fluticasone/Salmeterol (Fluticasone-Salmeterol 250-50 Diskus) 1 puff INHALATION BID.RESPIRATORY [facility] Last Admin: 11/07/20 08:58 Dose: 1 puff Documented by: Sodium Chloride (Sodium Chloride 1 Gm Tablet) 1 gm PO BID [facility] Last Admin: 11/07/20 09:22 Dose: 1 gm Documented by: Spironolactone (Spironolactone 25 Mg Tablet) 25 mg PO DAILY@08 [facility] Last Admin: 11/07/20 09:26 Dose: 25 mg Documented by: Vitals/I&O/Wt Last Vital Signs Temp 97.8 F 11/13/20 15:27 Pulse 74 11/13/20 16:06 Resp 18 11/13/20 16:06 BP 102/58 11/13/20 15:27 Pulse Ox 94 11/13/20 16:06 11/13/20 11/13/20 11/13/20 06:59 14:59 22:59 Intake Total 700 / 1300 460 / 460 Output Total 425 / 1260 800 / 800 Balance 275 / 40 460 / 460 -800 / -340 Physical Exam Narrative: EXAM NARRATIVE: GEN: Awake, alert and oriented, no acute distress CVS: S1S2 N RS: CTA B/L except crackles over RUL Abd: Soft, nt/nd , bs+ 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: no focal neuro deficits EXT: gross anasarca, 3+ pitting edema B/L Urinary Catheter Management^: Saravia: Cath Placed During This Visit: yes, but has since been removed by the nurse Reason for Continuing Indwelling Catheter: Decision to DC Catheter Urinary Catheter Date of Insertion: 11/04/20 Urinary Catheter Time of Insertion: 16:32 Date Urinary Catheter Removed: 11/10/20 Time Urinary Catheter Discontinued: 15:00 Data : 11/12/20 03:44 11/13/20 10:31 A&P Assessment and plan (1) NSTEMI (non-ST elevated myocardial infarction): NSTEMI type II: likely precipated by deman supply mismatch in [place] setting of anemia and CHF exacerbation 2D echo: 11/05 : Normal LV size and systolic function, with no RWMA , LVEF: 70%, mild aortic stenosis, peak velocity 2.6 m/s, mean gradient 13.2 mmHg, KAIA 2.6 cm squared. s/p PRBC transfuion for HB 7.6 currently stable FOBT : Negative, h.o GIB +, off ASA and eliquis currently Status: Acute (2) Heart failure, chronic, with acute decompensation: Ac on chronic Decompensated HFpEF Continue diuresis with Bumex and metolazone, however inadequate diuretic response Nephrology consult to assist with diuretic management and assess for need for d ialysis Discussed with patient the possibility that aggressive diuresis will likely result in worsening RAÚL and possibility of progressing to hemodialysis cannot be excluded. Patient agreeable to proceed to dialysis if need arises. Status: Acute Qualifiers: Heart failure type: unspecified Qualified Code(s): I50.9 - Heart failure, unspecified (3) Anasarca: Likely secondary to decompensated heart failure, decompensated liver cirrhosis. . Status: Acute (4) Hyperbilirubinemia: Likely 2/2 to Congestive Hepatopathy Status: Acute (5) Anemia: Likely multifactorial secondary to chronic GI blood loss, cannot conclusively rule out MDS, hemolysis. S/P 4Us PRBC Current plan is to transfuse to maintain hemoglobin ~8. Status: Acute (6) Generalized weakness: Status: Acute (7) Aortic stenosis: Mild to moderate aortic valve stenosis with a valve area of 1.4 Status: Acute Qualifiers: Cardiac valve disease etiology: nonrheumatic Qualified Code(s): I35.0 - Nonrheumatic aortic (valve) stenosis (8) Liver, cirrhosis, portal: Continue Lactulose Continue Rifxamin 550 mg po BID Status: Acute (9) Hepatic encephalopathy: Grade 1 hepatic encephalopathy: Minimal changes in behavior : Improving Currently on lactulose Blood culture: Urine culture has grown: Enterococcus faecalis for which he received levofloxacin x 4 days Continue rifaximin Status: Acute (10) RAÚL (acute kidney injury): RAÚL on CKD , cr stable, overall trending up during admission Status: Acute (11) UTI (urinary tract infection): this is more likely to be colonization D/c abx and monitor closely Status: Acute (12) Atrial fibrillation: Currently Rate Controlled. Metoprolol tartrate 12.5 mg every 12 hours daily Initially on Low dose Eliquis 2/5 mg q12 h daily has been stopped. Status: Acute Qualifiers: Atrial fibrillation type: unspecified chronic Qualified Code(s): I48.20 - Chronic atrial fibrillation, unspecified (13) Hyperkalemia: Resolved Monitor BMP Status: Acute (14) Seizure: Continue Keppra 750 mg PO BID Continue Keppra 750 mg PO BID Status: Acute (15) Hyponatremia: Hypervolemic hyponatremia: Serum sodium is improvin Status: Acute (16) Thrombocytopenia: Multifactorial: Monitor platelet count for now: Chornic, follows with hematology Status: Acute Attestations Medical Necessity Statement*: poor response to diuretics, nephrology consult, assess for HD Coding Level of Care Code Acute 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 [facility] Fwd Diagnoses NSTEMI (non-ST elevated myocardial infarction) I21.4 Heart failure, chronic, with acute decompensation I50.9 Heart failure type: unspecified Anasarca R60.1 Hyperbilirubinemia E80.6 Anemia D64.9 Generalized weakness R53.1 Aortic stenosis I35.0 Cardiac valve disease etiology: nonrheumatic Liver, cirrhosis, portal K74.69 Hepatic encephalopathy K72.90 RAÚL (acute kidney injury) N17.9 UTI (urinary tract infection) N39.0 Atrial fibrillation I48.20 Atrial fibrillation type: unspecified chronic Hyperkalemia E87.5 Seizure R56.9 Hyponatremia E87.1 Thrombocytopenia D69.6
--- NOTE | 2020-11-13 19:34 | PC.NURSE ---
Bedside report received from Liborio AMATO. Patient is resting in bed. He has no C/O of pain or needs at this time. Nurse will continue to monitor.
[2020-11-14] VITALS (22 sets, daily range): BP systolic 97–143; BP diastolic 52–78; PULSE 61–78; RESP 16–20; TEMP 36.4–36.7; O2SAT 91–97
[2020-11-14] MEDS: ipratropium-albuterol 3 mL Neb INHALATION ×7 (00:45→23:10)
[2020-11-14] MEDS: octreotide 100 mcg/mL SDV 200 MCG SUBCUT ×3 (03:36→18:21)
[2020-11-14] MEDS: FUROsemide 100 MG in sodium chloride 0.9% 40 ML IV ×2 (03:37→14:12)
[2020-11-14 06:50] LABS: Basophils % 0.3 %; Eosinophils # 0.1 10^3/uL (0.0-0.8); Eosinophils % 1.1 %; Hematocrit 27.4 % (42.0-52.0); Hemoglobin 8.9 g/dL (11.7-16.6); Lymphocytes # 0.8 10^3/uL (0.8-4.8); Lymphocytes % 11.9 %; Mean Corpuscular HGB Conc 32.5 g/dL (30.0-36.0); Mean Corpuscular Hemoglobin 33.2 pg (28.0-34.0); Mean Corpuscular Volume 102.2 fL (80-94); Mean Platelet Volume 10.9 fL (7.4-10.4); Monocytes # 1.1 10^3/uL (0.2-0.9); Monocytes % 17.2 %; Neutrophils # 4.59 10^3/uL (1.8-7.7); Neutrophils % 69.2 %; Nucleated Red Blood Cells % 0 %; Platelet Count 58 10^3/cmm (130-400); Red Blood Count 2.68 10^6/uL (4.1-5.3); Red Cell Distribution Width 17.9 % (12.1-15.1); White Blood Count 6.6 10^3/uL (4.0-10.0)
[2020-11-14 07:09] LABS: Alanine Aminotransferase 43 U/L (0-41); Albumin Level 3.5 g/dL (3.5-5.2); Alkaline Phosphatase 88 IU/L (40-130); Aspartate Amino Transferase 93 U/L (0-40); Calcium 8.2 mg/dL (8.5-10.5); Carbon Dioxide 24 mmol/L (22-29); Chloride 93 mmol/L (98-107); Globulin 2.4 g/dL (1.3-4.6); Glucose 119 mg/dL (65-115); Osmolality Calculated 306 mOsm/kg (285-295); Sodium 132 mmol/L (136-145); Total Bilirubin 4.9 mg/dL (0.15-1.2); Total Protein 5.9 g/dL (6.6-8.7)
[2020-11-14 07:22] LABS: Anion Gap 18.4 (5-19); Potassium 3.4 mmol/L (3.5-5.1)
[2020-11-14 07:25] LABS: Blood Urea Nitrogen 98 mg/dL (8-23)
[2020-11-14] MEDS: metoprolol tartrate 25 mg Tablet 12.5 MG PO ×2 (09:55→21:55)
[2020-11-14] MEDS: midodrine 5 mg TABLET 10 MG PO ×3 (09:56→21:55)
[2020-11-14] MEDS: folic acid 1 mg Tablet PO (09:56)
[2020-11-14] MEDS: levETIRAcetam 500 mg Tablet 750 MG PO ×2 (09:56→17:38)
[2020-11-14] MEDS: metOLazone 5 MG Tablet PO ×2 (09:57→17:38)
[2020-11-14] MEDS: lactulose oral liq 20 gm/30 mL UDC 45 GM PO ×2 (09:57→17:38)
[2020-11-14] MEDS: pantoprazole DR 40 mg Tablet PO (09:57)
--- NOTE | 2020-11-14 10:38 | P.PN_ITS ---
Subjective Subjective: Interval history: No new issues today. Urine output noted to be 1250 mL and apparently he is emptying his bladder normally. No acute uremic symptoms. Lower extremity edema remains relatively unchanged and still has subjective shortness of breath although he does not require nasal cannula oxygen at this time. Medications: Reviewed: Yes Medication Review Details: Current Medications Acetaminophen (Acetaminophen 325 Mg Tablet) 650 mg PO Q6H PRN PRN Reason: MILD PAIN Last Admin: 11/05/20 14:38 Dose: 650 mg Documented by: Albuterol/Ipratropium (Ipratropium-Albuterol 3 Ml Neb) 3 ml INHALATION Q4H.RESPIRATORY [facility] Last Admin: 11/07/20 16:22 Dose: 3 ml Documented by: Atorvastatin Calcium (Atorvastatin 40 Mg Tablet) 20 mg PO DAILY@17 [facility] Last Admin: 11/06/20 17:07 Dose: 20 mg Documented by: Bumetanide (Bumetanide 0.25 Mg/Ml Sdv 4 Ml) 2 mg IV BID [facility] Last Admin: 11/07/20 09:21 Dose: 2 mg Documented by: Cyclobenzaprine HCl (Cyclobenzaprine 10 Mg Tablet) 5 mg PO BID PRN PRN Reason: MUSCLE CRAMPS Last Admin: 11/07/20 09:22 Dose: 5 mg Documented by: Folic Acid (Folic Acid 1 Mg Tablet) 1 mg PO DAILY@08 [facility] Last Admin: 11/07/20 09:26 Dose: 1 mg Documented by: Levofloxacin/Dextrose (Levaquin-D5w) 750 mg in 150 mls @ 100 mls/hr IV Q24H [facility]; Protocol Last Admin: 11/07/20 16:15 Dose: 100 mls/hr Documented by: Sodium Chloride (Sodium Chloride 0.9%) 250 mls @ 0 mls/hr IV .Q0M PRN PRN Reason: PRBC TRANSFUSION Last Infusion: 11/07/20 00:25 Dose: Infused Documented by: Lactulose (Lactulose Oral Liq 20 Gm/30 Ml Udc) 45 gm PO BID [facility] Last Admin: 11/07/20 09:21 Dose: 45 gm Documented by: Levetiracetam (Levetiracetam 500 Mg Tablet) 750 mg PO BID@08,17 [facility] Last Admin: 11/07/20 09:22 Dose: 750 mg Documented by: Metolazone (Metolazone 5 Mg Tablet) 5 mg PO DAILY [facility] Last Admin: 11/07/20 09:26 Dose: 5 mg Documented by: Metoprolol Tartrate (Metoprolol Tartrate 25 Mg Tablet) 12.5 mg PO BID@0900,2100 [facility] Last Admin: 11/07/20 09:26 Dose: 12.5 mg Documented by: Nitroglycerin (Nitroglycerin 0.4 Mg Sublingual Tablet) 0.4 mg SUBLINGUAL Q5M PRN PRN Reason: CHEST PAIN Last Admin: 11/05/20 13:00 Dose: 1 cap Documented by: Ondansetron HCl (Ondansetron 2 Mg/Ml Sdv 2 Ml) 4 mg IVP Q6H PRN PRN Reason: NAUSEA AND VOMITING Last Admin: 11/05/20 20:50 Dose: 4 mg Documented by: Pantoprazole Sodium (Pantoprazole 40 Mg Sdv) 40 mg IVP Q12H [facility] Last Admin: 11/07/20 05:18 Dose: 40 mg Documented by: Rifaximin (Rifaximin 550 Mg Tablet) 550 mg PO BID@0800,1700 [facility]; Protocol Last Admin: 11/07/20 09:33 Dose: 550 mg Documented by: Fluticasone/Salmeterol (Fluticasone-Salmeterol 250-50 Diskus) 1 puff INHALATION BID.RESPIRATORY [facility] Last Admin: 11/07/20 08:58 Dose: 1 puff Documented by: Sodium Chloride (Sodium Chloride 1 Gm Tablet) 1 gm PO BID [facility] Last Admin: 11/07/20 09:22 Dose: 1 gm Documented by: Spironolactone (Spironolactone 25 Mg Tablet) 25 mg PO DAILY@08 [facility] Last Admin: 11/07/20 09:26 Dose: 25 mg Documented by: Vitals/I&O/Wt Last Vital Signs Temp 97.8 F 11/14/20 07:09 Pulse 73 11/14/20 08:48 Resp 20 H 11/14/20 08:42 BP 106/63 11/14/20 07:09 Pulse Ox 91 11/14/20 08:42 11/13/20 11/14/20 11/14/20 22:59 06:59 14:59 Intake Total 46 / 506 120 / 120 Output Total 800 / 800 450 / 1250 Balance -800 / -340 -404 / -744 120 / 120 Physical Exam Narrative: EXAM NARRATIVE: Constitutional: Awake, comfortable HEENT: Wet mucosa, no jvp, non icteric Lungs: Bilaterally discernible wheeze or rales in all lung zones CVS: S1 S2, no murmurs Abdo: Soft, BS ok Ext 4: 2-3+ edema, peripheral perfusion with no cyanosis Neurological: Grossly non-focal Urinary Catheter Management^: Saravia: Cath Placed During This Visit: yes, but has since been removed by the nurse Reason for Continuing Indwelling Catheter: Decision to DC Catheter Urinary Catheter Date of Insertion: 11/04/20 Urinary Catheter Time of Insertion: 16:32 Date Urinary Catheter Removed: 11/10/20 Time Urinary Catheter Discontinued: 15:00 Data : 11/14/20 05:50 11/14/20 05:50 A&P Additional A&P Information 1. 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 I wonder if there is an element of hepatorenal physiology as well. FE urea 17% Consistent with prerenal physiology. Given overt fluid overload continue diuretics, continue midodrine and octreotide. We do not see turnaround in the next day or so it is almost certain that he will need dialysis. Dose medication for GFR less than 30 Avoid usual nephrotoxic agents Strict I's and O's No need for renal imaging at this time, however, he should have a bladder scan daily by the bedside nurse. 2. Chemistry Hypervolemic hyponatremia on admission, now recovering somewhat. We will continue to follow sodium closely. This is likely secondary to both heart and liver disease. Potassium has been replaced, will monitor closely during hospitalization. 3. Advanced liver disease On combination therapy including rifaximin, lactulose. For possible hepatorenal physiology will add midodrine and octreotide. 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
--- NOTE | 2020-11-14 11:30 | PC.SOCIAL ---
IMM Update Pg. 2 of IMM updated and reviewed with patient, who verbalized understanding. Copy provided.
[2020-11-14] MEDS: spironolactone 25 mg Tablet 50 MG PO ×2 (14:12→17:38)
[2020-11-14] MEDS: atorvastatin 40 mg Tablet 20 MG PO (17:37)
--- NOTE | 2020-11-14 20:03 | P.PN_ITS ---
Subjective Subjective: Interval history: Started on lasix drip yesterday along with spirinolactoe resumed and metolazone increased. midodrine, Octreotide additionally added Medications: Reviewed: Yes Medication Review Details: Current Medications Acetaminophen (Acetaminophen 325 Mg Tablet) 650 mg PO Q6H PRN PRN Reason: MILD PAIN Last Admin: 11/05/20 14:38 Dose: 650 mg Documented by: Albuterol/Ipratropium (Ipratropium-Albuterol 3 Ml Neb) 3 ml INHALATION Q4H.RESPIRATORY DAMIAN Last Admin: 11/07/20 16:22 Dose: 3 ml Documented by: Atorvastatin Calcium (Atorvastatin 40 Mg Tablet) 20 mg PO DAILY@17 [facility] Last Admin: 11/06/20 17:07 Dose: 20 mg Documented by: Bumetanide (Bumetanide 0.25 Mg/Ml Sdv 4 Ml) 2 mg IV BID [facility] Last Admin: 11/07/20 09:21 Dose: 2 mg Documented by: Cyclobenzaprine HCl (Cyclobenzaprine 10 Mg Tablet) 5 mg PO BID PRN PRN Reason: MUSCLE CRAMPS Last Admin: 11/07/20 09:22 Dose: 5 mg Documented by: Folic Acid (Folic Acid 1 Mg Tablet) 1 mg PO DAILY@08 [facility] Last Admin: 11/07/20 09:26 Dose: 1 mg Documented by: Levofloxacin/Dextrose (Levaquin-D5w) 750 mg in 150 mls @ 100 mls/hr IV Q24H [facility]; Protocol Last Admin: 11/07/20 16:15 Dose: 100 mls/hr Documented by: Sodium Chloride (Sodium Chloride 0.9%) 250 mls @ 0 mls/hr IV .Q0M PRN PRN Reason: PRBC TRANSFUSION Last Infusion: 11/07/20 00:25 Dose: Infused Documented by: Lactulose (Lactulose Oral Liq 20 Gm/30 Ml Udc) 45 gm PO BID [facility] Last Admin: 11/07/20 09:21 Dose: 45 gm Documented by: Levetiracetam (Levetiracetam 500 Mg Tablet) 750 mg PO BID@08,17 [facility] Last Admin: 11/07/20 09:22 Dose: 750 mg Documented by: Metolazone (Metolazone 5 Mg Tablet) 5 mg PO DAILY [facility] Last Admin: 11/07/20 09:26 Dose: 5 mg Documented by: Metoprolol Tartrate (Metoprolol Tartrate 25 Mg Tablet) 12.5 mg PO BID@0900,2100 [facility] Last Admin: 11/07/20 09:26 Dose: 12.5 mg Documented by: Nitroglycerin (Nitroglycerin 0.4 Mg Sublingual Tablet) 0.4 mg SUBLINGUAL Q5M PRN PRN Reason: CHEST PAIN Last Admin: 11/05/20 13:00 Dose: 1 cap Documented by: Ondansetron HCl (Ondansetron 2 Mg/Ml Sdv 2 Ml) 4 mg IVP Q6H PRN PRN Reason: NAUSEA AND VOMITING Last Admin: 11/05/20 20:50 Dose: 4 mg Documented by: Pantoprazole Sodium (Pantoprazole 40 Mg Sdv) 40 mg IVP Q12H [facility] Last Admin: 11/07/20 05:18 Dose: 40 mg Documented by: Rifaximin (Rifaximin 550 Mg Tablet) 550 mg PO BID@0800,1700 [facility]; Protocol Last Admin: 11/07/20 09:33 Dose: 550 mg Documented by: Fluticasone/Salmeterol (Fluticasone-Salmeterol 250-50 Diskus) 1 puff INHALATION BID.RESPIRATORY [facility] Last Admin: 11/07/20 08:58 Dose: 1 puff Documented by: Sodium Chloride (Sodium Chloride 1 Gm Tablet) 1 gm PO BID [facility] Last Admin: 11/07/20 09:22 Dose: 1 gm Documented by: Spironolactone (Spironolactone 25 Mg Tablet) 25 mg PO DAILY@08 [facility] Last Admin: 11/07/20 09:26 Dose: 25 mg Documented by: Vitals/I&O/Wt Last Vital Signs Temp 98.0 F 11/14/20 16:00 Pulse 72 11/14/20 16:00 Resp 20 H 11/14/20 16:00 BP 143/78 11/14/20 16:00 Pulse Ox 92 11/14/20 16:00 11/14/20 11/14/20 11/14/20 06:59 14:59 22:59 Intake Total 46 / 506 290 / 290 Output Total 450 / 1250 Balance -404 / -744 290 / 290 Physical Exam Narrative: EXAM NARRATIVE: GEN: Awake, alert and oriented, no acute distress CVS: S1S2 N RS: CTA B/L except scattered crackles B/L Abd: Soft, nt/nd , bs+ EPILEPSY PHYSICIAN: no focal neuro deficits EXT: gross anasarca, 3+ pitting edema B/L Urinary Catheter Management^: Saravia: Cath Placed During This Visit: yes, but has since been removed by the nurse Reason for Continuing Indwelling Catheter: Decision to DC Catheter Urinary Catheter Date of Insertion: 11/04/20 Urinary Catheter Time of Insertion: 16:32 Date Urinary Catheter Removed: 11/10/20 Time Urinary Catheter Discontinued: 15:00 Data : 11/14/20 05:50 11/14/20 05:50 A&P Assessment and plan (1) NSTEMI (non-ST elevated myocardial infarction): NSTEMI type II: likely precipated by deman supply mismatch in shannen setting of anemia and CHF exacerbation 2D echo: 11/05 : Normal LV size and systolic function, with no RWMA , LVEF: 70%, mild aortic stenosis, peak velocity 2.6 m/s, mean gradient 13.2 mmHg, KAIA 2.6 cm squared. s/p PRBC transfuion for HB 7.6 currently stable FOBT : Negative, h.o GIB +, worsening thrombocytopenia , off ASA and eliquis currently Status: Acute (2) Heart failure, chronic, with acute decompensation: Ac on chronic Decompensated HFpEF Status: Acute Qualifiers: Heart failure type: unspecified Qualified Code(s): I50.9 - Heart ramona lure, unspecified (3) Anasarca: Likely secondary to decompensated heart failure, decompensated liver cirrhosis. Appreciate cardiology and nephrology recommendations Had poor response to Bumex 4mg BID and metolazone Now on Lasix drip, metolazone 5mg BID and spirinolactone 50mg BID Additionally started on midodrine, octreotide . Status: Acute (4) Hyperbilirubinemia: Likely 2/2 to Congestive Hepatopathy Status: Acute (5) Anemia: Likely multifactorial secondary to chronic GI blood loss, cannot c onclusively rule out MDS, hemolysis. S/P 4Us PRBC Current plan is to transfuse to maintain hemoglobin ~8. Status: Acute (6) Generalized weakness: Status: Acute (7) Aortic stenosis: Mild to moderate aortic valve stenosis with a valve area of 1.4 Status: Acute Qualifiers: Cardiac valve disease etiology: nonrheumatic Qualified Code(s): I35.0 - Nonrheumatic aortic (valve) stenosis (8) Liver, cirrhosis, portal: Continue Lactulose Continue Rifxamin 550 mg po BID Status: Acute (9) Hepatic encephalopathy: Grade 1 hepatic encephalopathy: Minimal changes in behavior : Improving Currently on lactulose Blood culture: Urine culture has grown: Enterococcus faecalis for which he received levofloxacin x 4 days Continue rifaximin Status: Acute (10) RAÚL (acute kidney injury): RAÚL on CKD , cr stable, overall trending up during admission Status: Acute (11) UTI (urinary tract infection): this is more likely to be colonization D/c abx and monitor closely Status: Acute (12) Atrial fibrillation: Currently Rate Controlled. Metoprolol tartrate 12.5 mg every 12 hours daily Initially on Low dose Eliquis 2/5 mg q12 h daily has been stopped. Status: Acute Qualifiers: Atrial fibrillation type: unspecified chronic Qualified Code(s): I48.20 - Chronic atrial fibrillation, unspecified (13) Hyperkalemia: Resolved Monitor BMP Status: Acute (14) Seizure: Continue Keppra 750 mg PO BID Continue Keppra 750 mg PO BID Status: Acute (15) Hyponatremia: Hypervolemic hyponatremia: Serum sodium is improvin Status: Acute (16) Thrombocytopenia: Chronic, follows with hematology Currently dropping platelt count ~50K Status: Acute Attestations Medical Necessity Statement*: refrcatory anasarca, optimizing diuretics, risk of proceeding to HD Coding Level of Care Code Acute Chin Strap Sewer for [facility] Diagnoses NSTEMI (non-ST elevated myocardial infarction) I21.4 Heart failure, chronic, with acute decompensation I50.9 Heart failure type: unspecified Anasarca R60.1 Hyperbilirubinemia E80.6 Anemia D64.9 Generalized weakness R53.1 Aortic stenosis I35.0 Cardiac valve disease etiology: nonrheumatic Liver, cirrhosis, portal K74.69 Hepatic encephalopathy K72.90 RAÚL (acute kidney injury) N17.9 UTI (urinary tract infection) N39.0 Atrial fibrillation I48.20 Atrial fibrillation type: unspecified chronic Hyperkalemia E87.5 Seizure R56.9 Hyponatremia E87.1 Thrombocytopenia D69.6
[2020-11-14 22:57] LABS: Bilirubin Urine Neg (Negative); Blood Urine 3+ (Negative); Glucose Urine UA Norm (Normal); Ketones Urine Negative (Negative); Leukocyte Esterase Urine 1+ (Negative); Nitrate Urine Negative (Negative); Protein Urine Neg (Negative); Specific Gravity, Urine 1.015 (1.005-1.030); Urine Appearance SL Hazy (CLEAR); Urine Color Yellow (Yellow); Urobilinogen Urine Norm (Negative); pH Urine 5 (5-7)
[2020-11-14 22:58] LABS: Hyaline Casts Urine 55-80 /lpf; RBC Urine 40-50 /hpf (0-2); WBC Urine 15-25 /hpf (0-5)
[2020-11-14 22:59] LABS: Bacteria Urine 2+ /hpf; Squamous Epithelial Cell Urine 0-4 /hpf (0-5); Urine Random Sodium 25 mmol/L
[2020-11-14 23:00] LABS: Add Urine Culture? Yes
[2020-11-14 23:04] LABS: UPRO/UCREAT Ratio 0.27 mg/mg CR; Urine Creatinine 106 mg/dL (39-259); Urine Protein Random 29 mg/dL
--- NOTE | 2020-11-14 23:50 | PC.NURSE ---
Bedside report received from Liborio AMATO. Patient is resting in bed with visitor at bedside. Patient voices no C/O of pain or other needs at this time. Urine specimen taken to lab. Commode emptied, Nurse will continue to monitor.
[2020-11-15] VITALS (19 sets, daily range): BP systolic 96–107; BP diastolic 46–61; PULSE 55–81; RESP 16–20; TEMP 36.6–36.9; O2SAT 90–96
[2020-11-15] MEDS: FUROsemide 100 MG in sodium chloride 0.9% 40 ML IV ×2 (00:55→13:30)
[2020-11-15] MEDS: octreotide 100 mcg/mL SDV 200 MCG SUBCUT ×3 (01:54→18:48)
--- NOTE | 2020-11-15 02:11 | PC.NURSE ---
Patient c/o not sleeping for several days. Informed Dr Marmolejo of patient complaint and received telephone order for Benadryl 50mg PO onetime now. RBVO
[2020-11-15] MEDS: diphenhydrAMINE 50 mg Capsule PO (02:18)
[2020-11-15] MEDS: ipratropium-albuterol 3 mL Neb INHALATION ×6 (03:08→23:15)
[2020-11-15 04:18] LABS: Basophils % 0.4 %; Eosinophils # 0.1 10^3/uL (0.0-0.8); Eosinophils % 1.5 %; Hematocrit 28.1 % (42.0-52.0); Lymphocytes # 1.1 10^3/uL (0.8-4.8); Lymphocytes % 13.3 %; Mean Corpuscular Hemoglobin 33.1 pg (28.0-34.0); Mean Corpuscular Volume 103.3 fL (80-94); Mean Platelet Volume 11.4 fL (7.4-10.4); Monocytes # 1.4 10^3/uL (0.2-0.9); Monocytes % 17.6 %; Neutrophils # 5.37 10^3/uL (1.8-7.7); Nucleated Red Blood Cells % 0 %; Platelet Count 55 10^3/cmm (130-400); Red Blood Count 2.72 10^6/uL (4.1-5.3); Red Cell Distribution Width 17.9 % (12.1-15.1)
[2020-11-15 04:41] LABS: Alanine Aminotransferase 37 U/L (0-41); Alkaline Phosphatase 79 IU/L (40-130); Calcium 7.5 mg/dL (8.5-10.5); Carbon Dioxide 22 mmol/L (22-29); Chloride 92 mmol/L (98-107); Globulin 1.9 g/dL (1.3-4.6); Glucose 114 mg/dL (65-115); Magnesium 2.6 mg/dL (1.7-2.3); Osmolality Calculated 303 mOsm/kg (285-295); Sodium 130 mmol/L (136-145); Total Protein 4.9 g/dL (6.6-8.7)
[2020-11-15 04:48] LABS: Anion Gap 19.9 (5-19); Aspartate Amino Transferase 87 U/L (0-40); Blood Urea Nitrogen 103 mg/dL (8-23); Potassium 3.9 mmol/L (3.5-5.1)
[2020-11-15] MEDS: levETIRAcetam 500 mg Tablet 750 MG PO ×2 (07:54→16:09)
[2020-11-15] MEDS: folic acid 1 mg Tablet PO (07:55)
[2020-11-15] MEDS: midodrine 5 mg TABLET 10 MG PO ×3 (08:02→20:13)
[2020-11-15] MEDS: spironolactone 25 mg Tablet 50 MG PO ×2 (08:03→18:33)
[2020-11-15] MEDS: pantoprazole DR 40 mg Tablet PO (08:03)
[2020-11-15] MEDS: metoprolol tartrate 25 mg Tablet 12.5 MG PO ×2 (08:03→20:12)
[2020-11-15] MEDS: metOLazone 5 MG Tablet PO ×2 (08:03→18:28)
--- NOTE | 2020-11-15 08:48 | P.PN_ITS ---
Subjective Subjective: Interval history: Feels ok today with no new issues. He remains weak, has LE edema, mild uremic Sx but no other new issues. UO only 350mL last 24hrs. Medications: Reviewed: Yes Medication Review Details: Current Medications Acetaminophen (Acetaminophen 325 Mg Tablet) 650 mg PO Q6H PRN PRN Reason: MILD PAIN Last Admin: 11/05/20 14:38 Dose: 650 mg Documented by: Albuterol/Ipratropium (Ipratropium-Albuterol 3 Ml Neb) 3 ml INHALATION Q4H.RESPIRATORY [facility] Last Admin: 11/07/20 16:22 Dose: 3 ml Documented by: Atorvastatin Calcium (Atorvastatin 40 Mg Tablet) 20 mg PO DAILY@17 [facility] Last Admin: 11/06/20 17:07 Dose: 20 mg Documented by: Bumetanide (Bumetanide 0.25 Mg/Ml Sdv 4 Ml) 2 mg IV BID [facility] Last Admin: 11/07/20 09:21 Dose: 2 mg Documented by: Cyclobenzaprine HCl (Cyclobenzaprine 10 Mg Tablet) 5 mg PO BID PRN PRN Reason: MUSCLE CRAMPS Last Admin: 11/07/20 09:22 Dose: 5 mg Documented by: Folic Acid (Folic Acid 1 Mg Tablet) 1 mg PO DAILY@08 [facility] Last Admin: 11/07/20 09:26 Dose: 1 mg Documented by: Levofloxacin/Dextrose (Levaquin-D5w) 750 mg in 150 mls @ 100 mls/hr IV Q24H [facility]; Protocol Last Admin: 11/07/20 16:15 Dose: 100 mls/hr Documented by: Sodium Chloride (Sodium Chloride 0.9%) 250 mls @ 0 mls/hr IV .Q0M PRN PRN Reason: PRBC TRANSFUSION Last Infusion: 11/07/20 00:25 Dose: Infused Documented by: Lactulose (Lactulose Oral Liq 20 Gm/30 Ml Udc) 45 gm PO BID [facility] Last Admin: 11/07/20 09:21 Dose: 45 gm Documented by: Levetiracetam (Levetiracetam 500 Mg Tablet) 750 mg PO BID@08,17 [facility] Last Admin: 11/07/20 09:22 Dose: 750 mg Documented by: Metolazone (Metolazone 5 Mg Tablet) 5 mg PO DAILY [facility] Last Admin: 11/07/20 09:26 Dose: 5 mg Documented by: Metoprolol Tartrate (Metoprolol Tartrate 25 Mg Tablet) 12.5 mg PO BID@0900,2100 [facility] Last Admin: 11/07/20 09:26 Dose: 12.5 mg Documented by: Nitroglycerin (Nitroglycerin 0.4 Mg Sublingual Tablet) 0.4 mg SUBLINGUAL Q5M PRN PRN Reason: CHEST PAIN Last Admin: 11/05/20 13:00 Dose: 1 cap Documented by: Ondansetron HCl (Ondansetron 2 Mg/Ml Sdv 2 Ml) 4 mg IVP Q6H PRN PRN Reason: NAUSEA AND VOMITING Last Admin: 11/05/20 20:50 Dose: 4 mg Documented by: Pantoprazole Sodium (Pantoprazole 40 Mg Sdv) 40 mg IVP Q12H [facility] Last Admin: 11/07/20 05:18 Dose: 40 mg Documented by: Rifaximin (Rifaximin 550 Mg Tablet) 550 mg PO BID@0800,1700 [facility]; Protocol Last Admin: 11/07/20 09:33 Dose: 550 mg Documented by: Fluticasone/Salmeterol (Fluticasone-Salmeterol 250-50 Diskus) 1 puff INHALATION BID.RESPIRATORY [facility] Last Admin: 11/07/20 08:58 Dose: 1 puff Documented by: Sodium Chloride (Sodium Chloride 1 Gm Tablet) 1 gm PO BID [facility] Last Admin: 11/07/20 09:22 Dose: 1 gm Documented by: Spironolactone (Spironolactone 25 Mg Tablet) 25 mg PO DAILY@08 [facility] Last Admin: 11/07/20 09:26 Dose: 25 mg Documented by: Vitals/I&O/Wt Last Vital Signs Temp 98.4 F 11/15/20 07:12 Pulse 55 L 11/15/20 08:34 Resp 20 H 11/15/20 08:34 BP 99/46 11/15/20 07:12 Pulse Ox 93 11/15/20 08:34 11/14/20 11/15/20 11/15/20 22:59 06:59 14:59 Intake Total 150 / 440 Output Total 50 / 50 275 / 325 Balance -50 / 240 -125 / 115 Physical Exam Narrative: EXAM NARRATIVE: Constitutional: Awake, comfortable HEENT: Wet mucosa, no jvp, non icteric Lungs: Bilaterally discernible wheeze or rales in all lung zones CVS: S1 S2, no murmurs Abdo: Soft, BS ok Ext 4: 2-3+ edema, peripheral perfusion with no cyanosis Neurological: Grossly non-focal Urinary Catheter Management^: Saravia: Cath Placed During This Visit: yes, but has since been removed by the nurse Reason for Continuing Indwelling Catheter: Decision to DC Catheter Urinary Catheter Date of Insertion: 11/04/20 Urinary Catheter Time of Insertion: 16:32 Date Urinary Catheter Removed: 11/10/20 Time Urinary Catheter Discontinued: 15:00 Data : 11/15/20 03:47 11/15/20 03:47 A&P Additional A&P Information 1. 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 I wonder if there is an element of hepatorenal physiology as well. FE urea 17% Consistent with prerenal physiology. Progressive renal failure. No acute need for dialysis this evening but will need dialysis tomorrow; will keep NPO tonight and plan for dialysis initiation with initiation prescription tomorrow. Tunnelled line placement tomorrow Cont diuretic combination for now Avoid usual nephrotoxic agents Strict I's and O's No need for renal imaging at this time, however, he should have a bladder scan daily by the bedside nurse. 2. Chemistry Hypervolemic hyponatremia on admission, now recovering somewhat. We will continue to follow sodium closely. This is likely secondary to both heart and liver disease and now kidney failure; non critical Am labs and dialysis tomorrow 3. Advanced liver disease On combination therapy including rifaximin, lactulose. For possible hepatorenal physiology will contiune midodrine and octreotide. Thank you for consultation, it is a pleasure to follow these cases with you Exam and interview performed with aid of bedside RN using telemedicine Time spent 20 min inc > 50% of time in face to face counseling Vladimir Morales MD [facility] [phone] Attestations Medical Necessity Statement*: Eval for RAÚL Coding Level of Care Code Acute Dental Office Receptionist for [facility]
--- NOTE | 2020-11-15 10:20 | P.PN_ITS ---
Subjective Subjective: Interval history: Patient is lethargic and sleepy today. His BUN continues to worsen. Urine output is low. Plan for a tunneled hemodialysis catheter tomorrow Vitals/I&O/Wt Last Vital Signs Temp 98.4 F 11/15/20 07:12 Pulse 68 11/15/20 08:48 Resp 20 H 11/15/20 08:34 BP 99/46 11/15/20 07:12 Pulse Ox 93 11/15/20 08:34 11/14/20 11/15/20 11/15/20 22:59 06:59 14:59 Intake Total 150 / 440 120 / 120 Output Total 50 / 50 275 / 325 Balance -50 / 240 -125 / 115 120 / 120 Physical Exam Narrative: EXAM NARRATIVE: Gen: Lethargic and sleepy today. HEENT: EOMI, pallor+, No icterus RS: decreased breath sound at bases, has crackles bilaterally CVS: S1, S2 irregular. Grade 3 systolic murmur in RUSB. 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, No FND GI: soft, NT, ND, BS+ Ext: 3+ bilateral edema+, anasarca; No clubbing Urinary Catheter Management^: Saravia: Cath Placed During This Visit: yes, but has since been removed by the nurse Reason for Continuing Indwelling Catheter: Decision to DC Catheter Urinary Catheter Date of Insertion: 11/04/20 Urinary Catheter Time of Insertion: 16:32 Date Urinary Catheter Removed: 11/10/20 Time Urinary Catheter Discontinued: 15:00 Data : 11/15/20 03:47 11/15/20 03:47 A&P Assessment and plan (1) NSTEMI (non-ST elevated myocardial infarction): NSTEMI: Type 2 in setting of anemia and CHF is a possibility. He has h/o GI bleed, gastric ulcer as well as epistaxis. He is anemic as well. Recent stres s test was normal. -Normal LV function and no RWMA on echo. ST-T wave changes in gildardo-lateral le ads resolved -Troponin T baseline at 54 increased to 60 then to 76. No indication for invascie procedure at this time -No ASA d/t drop in Hb, on lipitor (may have to stop based on liver function). -On low dose beta desiree. Status: Acute (2) Anasarca: Anasarca likely is a combination of decompensated liver cirrhosis and CHF. Status: Acute (3) Heart failure, chronic, with acute decompensation: HFpEF -Normal LV and RV systolic function. -IV Bumex and later IV Lasix drip has not improved patient's volume status and kidney function who continues to worsen. Plan for placement of tunneled catheter for hemodialysis initiation tomorrow. Status: Acute Qualifiers: Heart failure type: unspecified Qualified Code(s): I50.9 - Heart failure, unspecified (4) Atrial fibrillation: Paroxysmal A. fib with RVR. -Currently on metoprolol tartrate 12.5 mg p.o. twice daily Status: Acute Qualifiers: Atrial fibrillation type: unspecified chronic Qualified Code(s): I48.20 - Chronic atrial fibrillation, unspecified Additional A&P Information Mild on recent echo Liver cirrohosis Macrocytic anemia: Received 3 units of packed red blood cells. Hepatic encephalopathy : On rifaximin and lactulose Hyponatremia RAÚL Abnormal liver enzymes. Thank you for allowing me to participate in patient's care. Please feel free to call with questions or concerns. Attestations Medical Necessity Statement*: Care expected to cross 2 midnights. Coding Level of Care Code Acute Pest Control Service Technician for [facility] Fwd Diagnoses NSTEMI (non-ST elevated myocardial infarction) I21.4 Anasarca R60.1 Heart failure, chronic, with acute decompensation I50.9 Heart failure type: unspecified Atrial fibrillation I48.20 Atrial fibrillation type: unspecified chronic
[2020-11-15] MEDS: lactulose oral liq 20 gm/30 mL UDC 45 GM PO ×2 (11:17→18:28)
[2020-11-15 11:55] LABS: INR 2.56 (0.8-1.2)
--- NOTE | 2020-11-15 14:24 | PM.CONSULT ---
Providers/Reason For Consult Consulting Physician/Specialty*: General Surgery Dr. Michele Reason for Consult*: Dialysis catheter Attending Physician: Shruti Grant MD Primary Care Provider: Jessica Moreira MD History of Present Illness History of Present Illness Blayne Martinez is a 75 year old male who admitted to the hospital for fluid overload. Patient has history of liver cirrhosis, hemochromatosis with portal hypertension, thrombocytopenia and CHF. Patient had a port placed few years ago which has since been removed. No prior history of dialysis. Review of Systems General: Reports: ROS unobtainable due to mental status Meds/Allergies Home Medications and Allergies Home Medications Medication Instructions Recorded Confirmed Last Taken Type albuterol sulfate 90 mcg/actuation 2 puff INHALATION Q6H PRN 06/17/19 11/03/20 Unknown History aerosol inhaler pantoprazole 40 mg tablet,delayed 40 mg PO DAILY@08 tab 06/17/19 11/03/20 11/03/20 08:30 History release levetiracetam 750 mg tablet 750 mg PO BID@08,06/18/19 11/03/20 11/03/20 08:30 History pravastatin 20 mg tablet 10 mg PO DAILY@17 tab 06/18/19 11/03/20 11/02/20 History folic acid 1 mg PO DAILY@12/31/19 11/03/20 11/03/20 08:30 History apixaban 5 mg tablet 2.5 mg PO BID@, tab 04/20/20 11/03/20 11/03/20 08:30 History cholecalciferol (vitamin D3) 3,000 unit PO DAILY@08 08/16/20 11/03/20 11/03/20 08:30 History [Vitamin D3] lactulose 45 ml PO TID@,,08/16/20 11/03/20 11/03/20 08:30 History spironolactone 25 mg PO DAILY@08 08/16/20 11/03/20 11/03/20 08:30 History cyclobenzaprine 5 mg tablet 5 mg PO BID PRN tab 08/26/20 11/03/20 Unknown History potassium chloride 10 mEq 10 meq PO BID tab 10/09/20 11/03/20 11/03/20 08:30 History tablet,extended release Xifaxan 550 mg PO BID@0800,1700 05/12/21 05/25/21 05/25/21 08:30 History B cmplx 4-vit Q8-H-uonoj-zinc 1 tab PO DAILY #30 tab 10/26/20 11/03/20 11/03/20 08:30 Rx furosemide 40 mg PO BID@08,14 10 Days #0 tab 10/26/20 11/03/20 11/03/20 08:30 Rx prednisone See Taper PO DAILY #120 tab 10/26/20 11/03/20 11/03/20 08:30 Rx 60 MG budesonide-formoterol [Symbicort] 2 puff INHALATION BID 11/03/20 11/03/20 Unknown History omega-3 fatty acids [Fish Oil] 1,000 mg PO BID 11/03/20 11/03/20 11/03/20 08:30 History Allergies Allergy/AdvReac Type Severity Reaction Status Date / Time No Known Allergies Allergy Verified 11/03/20 16:02 Current Medications Current Medications Generic Name Dose Route Start Last Admin Trade Name Freq PRN Reason Stop Dose Admin Acetaminophen 650 mg 11/05/20 13:30 11/05/20 14:38 Acetaminophen 325 Mg Tablet PO 650 mg Q6H PRN Administration MILD PAIN Albuterol/Ipratropium 3 ml 11/04/20 20:00 11/15/20 11:34 Ipratropium-Albuterol 3 Ml Neb INHALATION 3 ml Q4H.RESPIRATORY DAMIAN Administration Atorvastatin Calcium 20 mg 11/05/20 17:00 11/14/20 17:37 Atorvastatin 40 Mg Tablet PO 20 mg DAILY@17 DAMIAN Administration Cyclobenzaprine HCl 5 mg 11/05/20 13:07 11/08/20 21:33 Cyclobenzaprine 10 Mg Tablet PO 5 mg BID PRN Administration MUSCLE CRAMPS Folic Acid 1 mg 11/04/20 08:00 11/15/20 07:55 Folic Acid 1 Mg Tablet PO 1 mg DAILY@08 DAMIAN Administration Guaifenesin 200 mg 11/09/20 01:45 11/09/20 01:51 Guaifenesin 100 Mg/5 Ml Udc 10 Ml PO 200 mg Q4H PRN Administration COUGH Guaifenesin/Dextromethorphan 5 ml 11/09/20 08:21 11/10/20 08:29 Guaifenesin-Dextromethorphan Udc 10 Ml PO 5 ml Q4H PRN Administration COUGH Furosemide 100 mg/ Sodium 50 mls @ 5 mls/hr 11/13/20 17:30 11/15/20 13:30 Chloride IV 10 mg/hr .Q10H DAMIAN 5 mls/hr Administration Protocol 10 MG/HR Lactulose 45 gm 11/04/20 09:00 11/15/20 11:17 Lactulose Oral Liq 20 Gm/30 Ml Udc PO 45 gm BID DAMIAN Administration Levetiracetam 750 mg 11/04/20 08:00 11/15/20 07:54 Levetiracetam 500 Mg Tablet PO 750 mg BID@08,17 DAMIAN Administration Metolazone 5 mg 11/13/20 18:00 11/15/20 08:03 Metolazone 5 Mg Tablet PO 5 mg BID DAMIAN Administration Metoprolol Tartrate 12.5 mg 11/05/20 13:00 11/15/20 08:03 Metoprolol Tartrate 25 Mg Tablet PO 12.5 mg BID@0900,2100 ADMIAN Administration Midodrine 10 mg 11/13/20 17:25 11/15/20 08:02 Midodrine 5 Mg Tablet PO 10 mg TID DAMIAN Administration Nitroglycerin 0.4 mg 11/05/20 12:52 11/05/20 13:00 Nitroglycerin 0.4 Mg Sublingual Tablet SUBLINGUAL 1 cap Q5M PRN Administration CHEST PAIN Octreotide Acetate 200 mcg 11/13/20 18:00 11/15/20 11:21 Octreotide 100 Mcg/Ml Sdv SUBCUT 200 mcg Q8H DAMIAN Administration Ondansetron HCl 4 mg 11/05/20 20:41 11/05/20 20:50 Ondansetron 2 Mg/Ml Sdv 2 Ml IVP 4 mg Q6H PRN Administration NAUSEA AND VOMITING Pantoprazole Sodium 40 mg 11/08/20 09:00 11/15/20 08:[address] 40 Mg Tablet PO 40 mg DAILY DAMIAN Administration Rifaximin 550 mg 11/04/20 08:00 11/15/20 07:58 Rifaximin 550 Mg Tablet PO 550 mg BID@0800,1700 DAMIAN Administration Protocol Fluticasone/Salmeterol 1 puff 11/04/20 20:00 11/15/20 08:34 Fluticasone-Salmeterol 250-50 Diskus INHALATION 1 puff BID.RESPIRATORY DAMIAN Administration Spironolactone 50 mg 11/14/20 13:10 11/15/20 08:03 Spironolactone 25 Mg Tablet PO 50 mg BID DAMIAN Administration PFSH Acute PFSH: Medical History (Updated 11/15/20 @ 14:28 by Conrado Michele MD) AAA (abdominal aortic aneurysm) 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 Atrial fibrillation On anticoagulation BPH (benign prostatic hyperplasia) Carotid artery stenosis Diverticulosis Duodenal ulcer Gastritis Hemochromatosis Hiatal hernia History of colon polyps Follow-up colonoscopy in 2023 HTN (hypertension) Hyperlipidemia Internal hemorrhoids Liver, cirrhosis, portal Portal hypertension Status post placement of implantable loop recorder TIA (transient ischemic attack) Surgical History (Updated 11/15/20 @ 14:28 by Conrado Michele MD) History of cystoscopy History of esophagogastroduodenoscopy (EGD) History of vasectomy S/P discectomy S/P ORIF (open reduction internal fixation) fracture RIGHT HIP Status post colonoscopy with polypectomy Family History Mother Stroke Brother Qqyde-5-kdvozjzseln deficiency Denies family history of Anesthesia complication Bleeding disorder Social History Smoking and tobacco status: never smoked Alcohol intake: never Household members: spouse Marital status: Current occupational status: retired Vitals/I&O/Wt Last Vital Signs Temp 98.2 F 11/15/20 12:00 Pulse 64 11/15/20 12:00 Resp 19 H 11/15/20 12:00 BP 107/56 11/15/20 12:00 Pulse Ox 96 11/15/20 12:00 11/14/20 11/15/20 11/15/20 22:59 06:59 14:59 Intake Total 150 / 440 528 / 528 Output Total 50 / 325 275 / 325 100 / 100 Balance -50 / 115 -125 / 115 428 / 428 Physical Exam Narrative: EXAM NARRATIVE: HEENT: Normocephalic Eye: Sclera /conjunctiva normal Respiratory and chest: Bilateral clear breath sounds on auscultation Cardiovascular: Normal S1 and S2 heart sounds Abdomen: Soft to palpation Neurological: Oriented to place person and time Skin: Intact, no lesions appreciated on gross exam Urinary Catheter Management^: Saravia: Cath Placed During This Visit: yes, but has since been removed by the nurse Reason for Continuing Indwelling Catheter: Decision to DC Catheter Urinary Catheter Date of Insertion: 11/04/20 Urinary Catheter Time of Insertion: 16:32 Date Urinary Catheter Removed: 11/10/20 Time Urinary Catheter Discontinued: 15:00 A&P Assessment and plan (1) RAÚL (acute kidney injury): 75-year-old male with multiple comorbidities including CHF, liver cirrhosis and acute kidney injury who is currently fluid overloaded and needs dialysis Plan for tunneled hemodialysis catheter under MAC tomorrow NPO after midnight Procedure, risks, benefits and alternatives have been discussed with the patient who wishes to proceed with surgery. 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
--- NOTE | 2020-11-15 15:34 | P.PN_ITS ---
Subjective Subjective: Interval history: cr at 2.9, urine output 400cc, anasarca persisting, cough is improving Medications: Reviewed: Yes Vitals/I&O/Wt Last Vital Signs Temp 98.2 F 11/15/20 12:00 Pulse 64 11/15/20 12:00 Resp 19 H 11/15/20 12:00 BP 107/56 11/15/20 12:00 Pulse Ox 96 11/15/20 12:00 11/15/20 11/15/20 11/15/20 06:59 14:59 22:59 Intake Total 150 / 440 528 / 528 Output Total 275 / 325 100 / 100 Balance -125 / 115 428 / 428 Physical Exam Narrative: EXAM NARRATIVE: GEN: Awake, alert and oriented, no acute distress CVS: S1S2 N RS: CTA B/L except scattered crackles B/L Abd: Soft, nt/nd , bs+ CARETAKER RESORT: no focal neuro deficits EXT: gross anasarca, 3+ pitting edema B/L Urinary Catheter Management^: Saravia: Cath Placed During This Visit: yes, but has since been removed by the nurse Reason for Continuing Indwelling Catheter: Decision to DC Catheter Urinary Catheter Date of Insertion: 11/04/20 Urinary Catheter Time of Insertion: 16:32 Date Urinary Catheter Removed: 11/10/20 Time Urinary Catheter Discontinued: 15:00 Data : 11/16/20 04:51 11/16/20 04:51 A&P Assessment and plan (1) NSTEMI (non-ST elevated myocardial infarction): NSTEMI type II: likely precipated by deman supply mismatch in shannen setting of anemia and CHF exacerbation 2D echo: 11/05 : Normal LV size and systolic function, with no RWMA , LVEF: 70%, mild aortic stenosis, peak velocity 2.6 m/s, mean gradient 13.2 mmHg, KAIA 2.6 cm squared. s/p PRBC transfuion for HB 7.6 currently stable FOBT : Negative, h.o GIB +, worsening thrombocytopenia , off ASA and eliquis currently Status: Acute (2) Heart failure, chronic, with acute decompensation: Ac on chronic Decompensated HFpEF Status: Acute Qualifiers: Heart failure type: unspecified Qualified Code(s): I50.9 - Heart failure, unspecified (3) Anasarca: Likely secondary to decompensated heart failure, decompensated liver cirrhosis. Appreciate cardiology and nephrology recommendations Had poor response to Bumex 4mg BID and metolazone Now on Lasix drip, metolazone 5mg BID and spirinolactone 50mg BID Additionally started on midodrine, octreotide . Status: Acute (4) Hyperbilirubinemia: Likely 2/2 to Congestive Hepatopathy Status: Acute (5) Anemia: Likely multifactorial secondary to chronic GI blood loss, cannot conclusively rule out MDS, hemolysis. S/P 4Us PRBC Current plan is to transfuse to maintain hemoglobin ~8. Status: Acute (6) Generalized weakness: Status: Acute (7) Aortic stenosis: Mild to moderate aortic valve stenosis with a valve area of 1.4 Status: Acute Qualifiers: Cardiac valve disease etiology: nonrheumatic Qualified Code(s): I35.0 - Nonrheumatic aortic (valve) stenosis (8) Liver, cirrhosis, portal: Continue Lactulose Continue Rifxamin 550 mg po BID Status: Acute (9) Hepatic encephalopathy: Grade 1 hepatic encephalopathy: Minimal changes in behavior : Improving Currently on lactulose Blood culture: Urine culture has grown: Enterococcus faecalis for which he received levofloxacin x 4 days Continue rifaximin Status: Acute (10) RAÚL (acute kidney injury): RAÚL on CKD , cr stable, overall trending up during admission Status: Acute (11) UTI (urinary tract infection): this is more likely to be colonization D/c abx and monitor closely Status: Acute (12) Atrial fibrillation: Currently Rate Controlled. Metoprolol tartrate 12.5 mg every 12 hours daily Initially on Low dose Eliquis 2/5 mg q12 h daily has been stopped. Status: Acute Qualifiers: Atrial fibrillation type: unspecified chronic Qualified Code(s): I48.20 - Chronic atrial fibrillation, unspecified (13) Hyperkalemia: Resolved Monitor BMP Status: Acute (14) Seizure: Continue Keppra 750 mg PO BID Continue Keppra 750 mg PO BID Status: Acute (15) Hyponatremia: Hypervolemic hyponatremia: Serum sodium is improvin Status: Acute (16) Thrombocytopenia: Chronic, follows with hematology Currently dropping platelt count ~50K Status: Acute Attestations Medical Necessity Statement*: plan to place HD cathter and start hemodialysis tomorrow Coding Level of Care Code Acute 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
[2020-11-15] MEDS: phytonadione (ADULT) 10 mg/mL Ampule 1 mL PO (16:01)
[2020-11-15] MEDS: atorvastatin 40 mg Tablet 20 MG PO (16:07)
--- NOTE | 2020-11-15 19:37 | PC.NURSE ---
pre void bladder scan 180 ml upon bladder scan..pt voided 120 ml in urinal.
--- NOTE | 2020-11-15 19:38 | PC.NURSE ---
post void bladder scan 40 ml cc
[2020-11-16] VITALS (29 sets, daily range): BP systolic 83–104; BP diastolic 41–63; PULSE 57–69; RESP 14–22; TEMP 36.4–37.2; O2SAT 80–98
--- NOTE | 2020-11-16 | SCC_ITS ---
Procedure Done: 1. Placement of 23 cm long 16 Thai AshSplit tunneled hemodialysis catheter right internal jugular vein 2. Fluoroscopic guidance and interpretation for placement of catheter 3. Ultrasound guidance to access the right internal jugular vein 122.4 seconds of fluoroscopic guidance, for a cumulative dose of 30.78 mGy, was provided to Dr. Michele by the radiology department. C-arm images of the chest were saved for the patient's permanent record. MARIA ISABELD
[2020-11-16] MEDS: octreotide 100 mcg/mL SDV 200 MCG SUBCUT (02:07)
[2020-11-16] MEDS: FUROsemide 100 MG in sodium chloride 0.9% 40 ML IV (02:07)
[2020-11-16] MEDS: ipratropium-albuterol 3 mL Neb INHALATION ×5 (03:10→23:34)
--- NOTE | 2020-11-16 04:52 | PC.NURSE ---
chest/neck area cleaned with CHG wipes
[2020-11-16 05:03] LABS: Basophils % 0.4 %; Eosinophils # 0.2 10^3/uL (0.0-0.8); Eosinophils % 1.6 %; Hematocrit 30.1 % (42.0-52.0); Hemoglobin 9.9 g/dL (11.7-16.6); Lymphocytes # 1.5 10^3/uL (0.8-4.8); Lymphocytes % 13.8 %; Mean Corpuscular HGB Conc 32.9 g/dL (30.0-36.0); Mean Corpuscular Hemoglobin 32.6 pg (28.0-34.0); Mean Platelet Volume 11.2 fL (7.4-10.4); Monocytes # 1.5 10^3/uL (0.2-0.9); Neutrophils # 7.64 10^3/uL (1.8-7.7); Neutrophils % 69.7 %; Nucleated Red Blood Cells % 0 %; Platelet Count 72 10^3/cmm (130-400); Red Blood Count 3.04 10^6/uL (4.1-5.3); Red Cell Distribution Width 17.8 % (12.1-15.1)
[2020-11-16 05:15] LABS: INR 2.65 (0.8-1.2)
[2020-11-16 05:33] LABS: Alanine Aminotransferase 38 U/L (0-41); Albumin Level 2.9 g/dL (3.5-5.2); Alkaline Phosphatase 86 IU/L (40-130); Anion Gap 19.9 (5-19); Aspartate Amino Transferase 96 U/L (0-40); Calcium 7.6 mg/dL (8.5-10.5); Carbon Dioxide 24 mmol/L (22-29); Chloride 91 mmol/L (98-107); Globulin 2.1 g/dL (1.3-4.6); Glucose 110 mg/dL (65-115); Potassium 3.9 mmol/L (3.5-5.1); Sodium 131 mmol/L (136-145); Total Bilirubin 6.1 mg/dL (0.15-1.2)
[2020-11-16 05:38] LABS: Osmolality Calculated 308 mOsm/kg (285-295)
[2020-11-16 05:43] LABS: Blood Urea Nitrogen 112 mg/dL (8-23)
--- NOTE | 2020-11-16 07:57 | PC.SOCIAL ---
IMM Update Pg. 2 of IMM updated and reviewed with patient, who verbalized understanding. Copy provided.
--- NOTE | 2020-11-16 08:00 | PC.NURSE ---
Notified Surgeon Notified Dr. Michele in person if i need to start the FFP transfusion now and Platelets transfusion. Her verbally ordered read back to him to transfuse FFP now and platelets will be on the way to OR. Verbal order read back to administer 10 mg oral of Vitamin K now.
--- NOTE | 2020-11-16 08:00 | PC.NURSE ---
Skin prep Shaved skin hair on chest. hibiclins wipes on his chest.
--- NOTE | 2020-11-16 08:15 | PC.NURSE ---
bladder scan/telenephrology 100 ml in scanner. Pt is reporting of dysuria and anuria. Dr. Morales notified if we need to D/C IV lasix drip. He stated he will stopped the drip and other diuretic meds. Discuss to pt and at bedside regarding dse process of ARF. Pt and verbalizes understanding.
--- NOTE | 2020-11-16 08:20 | PC.NUTR ---
Nutrition reassessment: Previous assessed by RD on 11/10/20 and 11/13/20. PO intakes continue to decline, BUN and Cr continue to increase. Recommend advance diet as tolerated to Renal dialysis diet when appropriate. Recommend to supervise and encourage po intakes at meals. Recommend to obtain Phos level when possible. Spoke with nurse Yasmani regarding recommendation for dialysis diet when diet is advanced. See RD assessments for further details.
[2020-11-16] MEDS: phytonadione (ADULT) 10 mg/mL Ampule 1 mL PO (08:46)
--- NOTE | 2020-11-16 10:13 | PM.PN ---
Subjective Subjective: Interval history: No issues overnight vitamin K given yesterday, Vitals/I&O/Wt Last Vital Signs Temp 98.9 F 11/16/20 10:00 Pulse 60 11/16/20 10:00 Resp 18 11/16/20 10:00 BP 88/41 11/16/20 10:00 Pulse Ox 95 11/16/20 10:00 11/15/20 11/16/20 11/16/20 22:59 06:59 14:59 Intake Total 334 / 912 50 / 912 0 / 0 Output Total 120 / 320 100 / 320 Balance 214 / 592 -50 / 592 0 / 0 Physical Exam Narrative: EXAM NARRATIVE: HEENT: Normocephalic Eye: Sclera /conjunctiva normal Abdomen: Soft to palpation, slightly distended Neurological: Oriented to place person and time Skin: Intact, no lesions appreciated on gross exam Urinary Catheter Management^: Saravia: Cath Placed During This Visit: yes, but has since been removed by the nurse Reason for Continuing Indwelling Catheter: Decision to DC Catheter Urinary Catheter Date of Insertion: 11/04/20 Urinary Catheter Time of Insertion: 16:32 Date Urinary Catheter Removed: 11/10/20 Time Urinary Catheter Discontinued: 15:00 Data : 11/16/20 04:51 11/16/20 04:51 Micro: Microbiology 11/14/20 22:30 Urine Culture - Preliminary Urine,Clean Catch Yeast species A&P Assessment and plan (1) RAÚL (acute kidney injury): Plan for placement of right IJ tunnel plan for placement of tunneled hemodialysis catheter under MAC today FFp given, platelets to be transfused prior to surgery 10mg po vit K given Status: Acute Attestations Medical Necessity Statement*: As per primary Coding Level of Care Code 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
--- NOTE | 2020-11-16 10:23 | PM.PN ---
Subjective Subjective: Interval history: Feels ok, about the same. UO has now really dropped off. LE edema is unchanged and still profound. No overt uremic Sx Feels some discomfort in his pelvis, bladder scan shows ~100mL only No other overt uremic Sx. Medications: Reviewed: Yes Medication Review Details: Current Medications Acetaminophen (Acetaminophen 325 Mg Tablet) 650 mg PO Q6H PRN PRN Reason: MILD PAIN Last Admin: 11/05/20 14:38 Dose: 650 mg Documented by: Albuterol/Ipratropium (Ipratropium-Albuterol 3 Ml Neb) 3 ml INHALATION Q4H.RESPIRATORY [facility] Last Admin: 11/07/20 16:22 Dose: 3 ml Documented by: Atorvastatin Calcium (Atorvastatin 40 Mg Tablet) 20 mg PO DAILY@17 [facility] Last Admin: 11/06/20 17:07 Dose: 20 mg Documented by: Bumetanide (Bumetanide 0.25 Mg/Ml Sdv 4 Ml) 2 mg IV BID [facility] Last Admin: 11/07/20 09:21 Dose: 2 mg Documented by: Cyclobenzaprine HCl (Cyclobenzaprine 10 Mg Tablet) 5 mg PO BID PRN PRN Reason: MUSCLE CRAMPS Last Admin: 11/07/20 09:22 Dose: 5 mg Documented by: Folic Acid (Folic Acid 1 Mg Tablet) 1 mg PO DAILY@08 [facility] Last Admin: 11/07/20 09:26 Dose: 1 mg Documented by: Levofloxacin/Dextrose (Levaquin-D5w) 750 mg in 150 mls @ 100 mls/hr IV Q24H [facility]; Protocol Last Admin: 11/07/20 16:15 Dose: 100 mls/hr Documented by: Sodium Chloride (Sodium Chloride 0.9%) 250 mls @ 0 mls/hr IV .Q0M PRN PRN Reason: PRBC TRANSFUSION Last Infusion: 11/07/20 00:25 Dose: Infused Documented by: Lactulose (Lactulose Oral Liq 20 Gm/30 Ml Udc) 45 gm PO BID [facility] Last Admin: 11/07/20 09:21 Dose: 45 gm Documented by: Levetiracetam (Levetiracetam 500 Mg Tablet) 750 mg PO BID@08,17 [facility] Last Admin: 11/07/20 09:22 Dose: 750 mg Documented by: Metolazone (Metolazone 5 Mg Tablet) 5 mg PO DAILY [facility] Last Admin: 11/07/20 09:26 Dose: 5 mg Documented by: Metoprolol Tartrate (Metoprolol Tartrate 25 Mg Tablet) 12.5 mg PO BID@0900,2100 [facility] Last Admin: 11/07/20 09:26 Dose: 12.5 mg Documented by: Nitroglycerin (Nitroglycerin 0.4 Mg Sublingual Tablet) 0.4 mg SUBLINGUAL Q5M PRN PRN Reason: CHEST PAIN Last Admin: 11/05/20 13:00 Dose: 1 cap Documented by: Ondansetron HCl (Ondansetron 2 Mg/Ml Sdv 2 Ml) 4 mg IVP Q6H PRN PRN Reason: NAUSEA AND VOMITING Last Admin: 11/05/20 20:50 Dose: 4 mg Documented by: Pantoprazole Sodium (Pantoprazole 40 Mg Sdv) 40 mg IVP Q12H [facility] Last Admin: 11/07/20 05:18 Dose: 40 mg Documented by: Rifaximin (Rifaximin 550 Mg Tablet) 550 mg PO BID@0800,1700 [facility]; Protocol Last Admin: 11/07/20 09:33 Dose: 550 mg Documented by: Fluticasone/Salmeterol (Fluticasone-Salmeterol 250-50 Diskus) 1 puff INHALATION BID.RESPIRATORY [facility] Last Admin: 11/07/20 08:58 Dose: 1 puff Documented by: Sodium Chloride (Sodium Chloride 1 Gm Tablet) 1 gm PO BID [facility] Last Admin: 11/07/20 09:22 Dose: 1 gm Documented by: Spironolactone (Spironolactone 25 Mg Tablet) 25 mg PO DAILY@08 [facility] Last Admin: 11/07/20 09:26 Dose: 25 mg Documented by: Vitals/I&O/Wt Last Vital Signs Temp 98.9 F 11/16/20 10:00 Pulse 60 11/16/20 10:00 Resp 18 11/16/20 10:00 BP 88/41 11/16/20 10:00 Pulse Ox 95 11/16/20 10:00 11/15/20 11/16/20 11/16/20 22:59 06:59 14:59 Intake Total 334 / 862 50 / 912 0 / 0 Output Total 120 / 220 100 / 320 Balance 214 / 642 -50 / 592 0 / 0 Physical Exam Narrative: EXAM NARRATIVE: Constitutional: Awake, comfortable HEENT: Wet mucosa, no jvp, non icteric Lungs: Bilaterally discernible wheeze or rales in all lung zones CVS: S1 S2, no murmurs Abdo: Soft, BS ok Ext 4: 2-3+ edema, peripheral perfusion with no cyanosis Neurological: Grossly non-focal Urinary Catheter Management^: Saravia: Cath Placed During This Visit: yes, but has since been removed by the nurse Reason for Continuing Indwelling Catheter: Decision to DC Catheter Urinary Catheter Date of Insertion: 11/04/20 Urinary Catheter Time of Insertion: 16:32 Date Urinary Catheter Removed: 11/10/20 Time Urinary Catheter Discontinued: 15:00 Data : 11/16/20 04:51 11/16/20 04:51 Micro: Microbiology 11/14/20 22:30 Urine Culture - Preliminary Urine,Clean Catch Yeast species A&P Additional A&P Information 1. 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 I wonder if there is an element of hepatorenal physiology as well. FE urea 17% Consistent with prerenal physiology. Line pending for today Dialysis to be initiated today with gentle settings, more intense settings tomorrow Will stop the diuretics including the lasix, Spironolactone, metolazone as they are currently ineffective Hopefully with decompression of his venous system with effective ultrafiltration his cardiac output will improve Avoid usual nephrotoxic agents Strict I's and O's No need for renal imaging at this time, however, he should have a bladder scan daily by the bedside nurse. 2. Chemistry Hypervolemic hyponatremia on admission, now recovering somewhat. We will continue to follow sodium closely. This is likely secondary to both heart and liver disease and now kidney failure; non critical Am labs and dialysis tomorrow 3. Advanced liver disease On combination therapy including rifaximin, lactulose. For possible hepatorenal physiology will continue midodrine but will stop the octreotide. 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
--- NOTE | 2020-11-16 11:30 | PC.NURSE ---
FFP transfused FFP transfused. VS monitored. Afebrile all throughout. No transfusion reactions noted or reported by pt.
--- NOTE | 2020-11-16 11:48 | PC.OT ---
OT tx attempted at 1125. Pt sleeping soundly. Nursing in the room and requests OT tx be withheld today. Pt has critical labs and is going to surgery for port placement then dialysis. Will attempt tx again tomorrow.
--- NOTE | 2020-11-16 12:37 | P.ANESASSM_ITS ---
Pre-Anesthetic Assessment Pre-Anesthetic Assessment: Height/Weight: Height 1.83 m Weight 123.831 kg Temp Pulse Resp BP Pulse Ox 97.9 F 61 18 85/46 92 11/16/20 11:30 11/16/20 11:30 11/16/20 11:18 11/16/20 11:30 11/16/20 11:30 Preop Diagnosis: ARF Proposed Procedure: Operation Date: 11/16/20 16:05 Proposed Procedures p Dialysis Catheter Insertion(Not Applicable) - Conrado Michele MD Familial anesthetic complications: none Last intake: > 8 hrs Social: Social History: Tobacco and No alcohol Exam: Pre-Anes Outpt Exam: alert, oriented x 3, clear to auscultation bilaterally and regular rate & rhythm Airway: Cervical ROM: WNL MP: 2 Dentition: Chipped and Other (missing, poor dentition) CV/HEM: CV/HEM: Afib, Angina (Stable), HTN and SC (NSTEMI) Comments: grade III diastolic heart failure, moderate aortic stenosis : Comments: RAÚL Hepatic: Comments: cirrhosis GI: GI: GERD Neuropsych: Comments: carotid stenosis Anesthetic Plan: ASA status: 4 Risk of > 500 ml blood loss (7ml/kg in children): No Other Pertinent Information: Patient give 2 doses of Vitamin K, most recently this morning, FFP infused this morning. Will start platelets and repeat stat INR Meds/Allergies Current Medications: Current Medications Generic Name Dose Route Start Last Admin Trade Name Freq PRN Reason Stop Dose Admin Acetaminophen 650 mg 11/05/20 13:30 11/05/20 14:38 Acetaminophen 32 5 Mg Tablet PO 650 mg Q6H PRN Administration MILD PAIN Albuterol/Ipratrop ium 3 ml 11/04/20 20:00 11/16/20 11:18 Ipratropium-Albu terol 3 Ml Neb INHALATION 3 ml Q4H.RESPIRATORY [facility] Administration Atorvastatin Calci um 20 mg 11/05/20 17:00 11/15/20 16:07 Atorvastatin 40 Mg Tablet PO 20 mg DAILY@17 DAMIAN Administration Cyclobenzaprine HC l 5 mg 11/05/20 13:07 11/08/20 21:33 Cyclobenzaprine 10 Mg Tablet PO 5 mg BID PRN Administration MUSCLE CRAMPS Folic Acid 1 mg 11/04/20 08:00 06/07/21 09:53 Folic Acid 1 Mg Tablet PO Not Given DAILY@08 [facility] Guaifenesin 200 mg 11/09/20 01:45 11/09/20 01:51 Guaifenesin 100 Mg/5 Ml Udc 10 Ml PO 200 mg Q4H PRN Administration COUGH Guaifenesin/Dextro methorphan 5 ml 11/09/20 08:21 11/10/20 08:29 Guaifenesin-Dext romethorphan Udc 1 0 Ml PO 5 ml Q4H PRN Administration COUGH Lactulose 45 gm 11/04/20 09:00 11/16/20 11:05 Lactulose Oral L iq 20 Gm/30 Ml Udc PO Not Given BID [facility] Levetiracetam 750 mg 11/04/20 08:00 11/16/20 09:53 Levetiracetam 50 0 Mg Tablet PO Not Given BID@08,17 [facility] Metoprolol Tartrat e 12.5 mg 11/05/20 13:00 11/16/20 11:05 Metoprolol Tartr ate 25 Mg Tablet PO Not Given BID@0900,2100 [facility] Midodrine 10 mg 11/13/20 17:25 11/16/20 11:05 Midodrine 5 Mg T ablet PO Not Given TID [facility] Nitroglycerin 0.4 mg 11/05/20 12:52 11/05/20 13:00 Nitroglycerin 0. 4 Mg Sublingual Ta blet SUBLINGUAL 1 cap Q5M PRN Administration CHEST PAIN Ondansetron HCl 4 mg 11/05/20 20:41 11/05/20 20:50 Ondansetron 2 Mg /Ml Sdv 2 Ml IVP 4 mg Q6H PRN Administration NAUSEA AND VOMITI NG Pantoprazole Sodiu m 40 mg 11/08/20 09:00 11/16/20 11:[address] 40 Mg Tablet PO Not Given DAILY [facility] Rifaximin 550 mg 11/04/20 08:00 11/16/20 09:53 Rifaximin 550 Mg Tablet PO Not Given BID@0800,1700 [facility] Protocol Fluticasone/Salmet gillian 1 puff 11/04/20 20:00 11/16/20 07:21 Fluticasone-Salm eterol 250-50 Disk us INHALATION 1 puff BID.RESPIRATORY S [facility] Administration Additional Medication Information: Current Medications Acetaminophen (Acetaminophen 325 Mg Tablet) 650 mg PO Q6H PRN PRN Reason: MILD PAIN Last Admin: 11/05/20 14:38 Dose: 650 mg Documented by: Albuterol/Ipratropium (Ipratropium-Albuterol 3 Ml Neb) 3 ml INHALATION Q4H.RESPIRATORY [facility] Last Admin: 11/07/20 16:22 Dose: 3 ml Documented by: Atorvastatin Calcium (Atorvastatin 40 Mg Tablet) 20 mg PO DAILY@17 [facility] Last Admin: 11/06/20 17:07 Dose: 20 mg Documented by: Bumetanide (Bumetanide 0.25 Mg/Ml Sdv 4 Ml) 2 mg IV BID [facility] Last Admin: 11/07/20 09:21 Dose: 2 mg Documented by: Cyclobenzaprine HCl (Cyclobenzaprine 10 Mg Tablet) 5 mg PO BID PRN PRN Reason: MUSCLE CRAMPS Last Admin: 11/07/20 09:22 Dose: 5 mg Documented by: Folic Acid (Folic Acid 1 Mg Tablet) 1 mg PO DAILY@08 [facility] Last Admin: 11/07/20 09:26 Dose: 1 mg Documented by: Levofloxacin/Dextrose (Levaquin-D5w) 750 mg in 150 mls @ 100 mls/hr IV Q24H [facility]; Protocol Last Admin: 11/07/20 16:15 Dose: 100 mls/hr Documented by: Sodium Chloride (Sodium Chloride 0.9%) 250 mls @ 0 mls/hr IV .Q0M PRN PRN Reason: PRBC TRANSFUSION Last Infusion: 11/07/20 00:25 Dose: Infused Documented by: Lactulose (Lactulose Oral Liq 20 Gm/30 Ml Udc) 45 gm PO BID [facility] Last Admin: 11/07/20 09:21 Dose: 45 gm Documented by: Levetiracetam (Levetiracetam 500 Mg Tablet) 750 mg PO BID@08,17 [facility] Last Admin: 11/07/20 09:22 Dose: 750 mg Documented by: Metolazone (Metolazone 5 Mg Tablet) 5 mg PO DAILY [facility] Last Admin: 11/07/20 09:26 Dose: 5 mg Documented by: Metoprolol Tartrate (Metoprolol Tartrate 25 Mg Tablet) 12.5 mg PO BID@0900,2100 [facility] Last Admin: 11/07/20 09:26 Dose: 12.5 mg Documented by: Nitroglycerin (Nitroglycerin 0.4 Mg Sublingual Tablet) 0.4 mg SUBLINGUAL Q5M PRN PRN Reason: CHEST PAIN Last Admin: 11/05/20 13:00 Dose: 1 cap Documented by: Ondansetron HCl (Ondansetron 2 Mg/Ml Sdv 2 Ml) 4 mg IVP Q6H PRN PRN Reason: NAUSEA AND VOMITING Last Admin: 11/05/20 20:50 Dose: 4 mg Documented by: Pantoprazole Sodium (Pantoprazole 40 Mg Sdv) 40 mg IVP Q12H [facility] Last Admin: 11/07/20 05:18 Dose: 40 mg Documented by: Rifaximin (Rifaximin 550 Mg Tablet) 550 mg PO BID@0800,1700 [facility]; Protocol Last Admin: 11/07/20 09:33 Dose: 550 mg Documented by: Fluticasone/Salmeterol (Fluticasone-Salmeterol 250-50 Diskus) 1 puff INHALATION BID.RESPIRATORY [facility] Last Admin: 11/07/20 08:58 Dose: 1 puff Documented by: Sodium Chloride (Sodium Chloride 1 Gm Tablet) 1 gm PO BID [facility] Last Admin: 11/07/20 09:22 Dose: 1 gm Documented by: Spironolactone (Spironolactone 25 Mg Tablet) 25 mg PO DAILY@08 [facility] Last Admin: 11/07/20 09:26 Dose: 25 mg Documented by: PFSH Anesthesia PFS: Medical History (Updated 11/15/20 @ 14:28 by Conrado Michele MD) AAA (abdominal aortic aneurysm) 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 Atrial fibrillation On anticoagulation BPH (benign prostatic hyperplasia) Carotid artery stenosis Diverticulosis Duodenal ulcer Gastritis Hemochromatosis Hiatal hernia History of colon polyps Follow-up colonoscopy in 2023 HTN (hypertension) Hyperlipidemia Internal hemorrhoids Liver, cirrhosis, portal Portal hypertension Status post placement of implantable loop recorder TIA (transient ischemic attack) Surgical History (Updated 11/15/20 @ 14:28 by Conrado Michele MD) History of cystoscopy History of esophagogastroduodenoscopy (EGD) History of vasectomy S/P discectomy S/P ORIF (open reduction internal fixation) fracture RIGHT HIP Status post colonoscopy with polypectomy Family History Mother Stroke Brother [id number] deficiency Denies family history of Anesthesia complication Bleeding disorder Social History Smoking and tobacco status: never smoked Alcohol intake: never Household members: spouse Marital status: Current occupational status: retired Data Anesthesia CBC & Chem 7: 11/16/20 04:51 11/16/20 04:51 Other Labs: Laboratory Results - last 48 hr 11/14/20 11/14/20 11/14/20 22:30 22:30 22:30 WBC RBC Hgb Hct MCV MCH MCHC RDW Plt Count MPV Neut % (Auto) Lymph % (Auto) [place] % (Auto) Eos % (Auto) Baso % (Auto) Neut # (Auto) Lymph # (Auto) [place] # (Auto) Eos # (Auto) Baso # (Auto) Nucleated RBC % (auto) Nucleated RBCs # PT INR Sodium Potassium Chloride Carbon Dioxide Anion Gap BUN Creatinine GFR Calculation Glucose Calculated Osmolality Calcium Magnesium Total Bilirubin AST ALT Alkaline Phosphatase Total Protein Albumin Globulin Urine Color Yellow Urine Appearance Sl hazy Urine pH 5 Ur Specific Welcome 1.015 Urine Protein Neg Urine Glucose (UA) Norm Urine Ketones Negative Urine Blood 3+ H Urine Nitrate Negative Urine Bilirubin Neg Urine Urobilinogen Norm Ur Leukocyte Esterase 1+ H Urine RBC 40-50 H Urine WBC 15-25 H Ur Squamous Epith Cells 0-4 H Amorphous Sediment Not Reportable Urine Bacteria 2+ H Hyaline Casts 55-80 H Urine Yeast 1+ H U Random Total Protein 29 Ur Random Sodium 25 Urine Creatinine 106 Protein/Creatinin Ratio 0.27 Blood Type Rho(D) Type 11/15/20 11/15/20 11/15/20 03:47 03:47 11:04 WBC 8.0 RBC 2.72 L Hgb 9.0 L Hct 28.1 L MCV 103.3 H MCH 33.1 MCHC 32.0 RDW 17.9 H Plt Count 55 L MPV 11.4 H Neut % (Auto) 67.0 Lymph % (Auto) 13.3 [place] % (Auto) 17.6 Eos % (Auto) 1.5 Baso % (Auto) 0.4 Neut # (Auto) 5.37 Lymph # (Auto) 1.1 [place] # (Auto) 1.4 H Eos # (Auto) 0.1 Baso # (Auto) 0.0 Nucleated RBC % (auto) 0 Nucleated RBCs # 0.0 PT 28.00 H INR 2.56 H Sodium 130 L Potassium 3.9 Chloride 92 L Carbon Dioxide 22 Anion Gap 19.9 H BUN 103 H* Creatinine 2.9 H GFR Calculation Not Reportable Glucose 114 Calculated Osmolality 303 H Calcium 7.5 L Magnesium 2.6 H Total Bilirubin 5.0 H AST 87 H ALT 37 Alkaline Phosphatase 79 Total Protein 4.9 L Albumin 3.0 L Globulin 1.9 Urine Color Urine Appearance Urine pH Ur Specific Welcome Urine Protein Urine Glucose (UA) Urine Ketones Urine Blood Urine Nitrate Urine Bilirubin Urine Urobilinogen Ur Leukocyte Esterase Urine RBC Urine WBC Ur Squamous Epith Cells Amorphous Sediment Urine Bacteria Hyaline Casts Urine Yeast U Random Total Protein Ur Random Sodium Urine Creatinine Protein/Creatinin Ratio Blood Type Rho(D) Type 11/15/20 11/16/20 11/16/20 11:04 04:51 04:51 WBC 11.0 H RBC 3.04 L Hgb 9.9 L Hct 30.1 L MCV 99.0 H MCH 32.6 MCHC 32.9 RDW 17.8 H Plt Count 72 L MPV 11.2 H Neut % (Auto) 69.7 Lymph % (Auto) 13.8 [place] % (Auto) 14.0 Eos % (Auto) 1.6 Baso % (Auto) 0.4 Neut # (Auto) 7.64 Lymph # (Auto) 1.5 [place] # (Auto) 1.5 H Eos # (Auto) 0.2 Baso # (Auto) 0.0 Nucleated RBC % (auto) 0 Nucleated RBCs # 0.0 PT 28.80 H INR 2.65 H Sodium Potassium Chloride Carbon Dioxide Anion Gap BUN Creatinine GFR Calculation Glucose Calculated Osmolality Calcium Magnesium Total Bilirubin AST ALT Alkaline Phosphatase Total Protein Albumin Globulin Urine Color Urine Appearance Urine pH Ur Specific Welcome Urine Protein Urine Glucose (UA) Urine Ketones Urine Blood Urine Nitrate Urine Bilirubin Urine Urobilinogen Ur Leukocyte Esterase Urine RBC Urine WBC Ur Squamous Epith Cells Amorphous Sediment Urine Bacteria Hyaline Casts Urine Yeast U Random Total Protein Ur Random Sodium Urine Creatinine Protein/Creatinin Ratio Blood Type O Positive Rho(D) Type Positive / 4+ 11/16/20 04:51 WBC RBC Hgb Hct MCV MCH MCHC RDW Plt Count MPV Neut % (Auto) Lymph % (Auto) [place] % (Auto) Eos % (Auto) Baso % (Auto) Neut # (Auto) Lymph # (Auto) [place] # (Auto) Eos # (Auto) Baso # (Auto) Nucleated RBC % (auto) Nucleated RBCs # PT INR Sodium 131 L Potassium 3.9 Chloride 91 L Carbon Dioxide 24 Anion Gap 19.9 H BUN 112 H* Creatinine 4.9 H GFR Calculation Not Reportable Glucose 110 Calculated Osmolality 308 H Calcium 7.6 L Magnesium Total Bilirubin 6.1 H AST 96 H ALT 38 Alkaline Phosphatase 86 Total Protein 5.0 L Albumin 2.9 L Globulin 2.1 Urine Color Urine Appearance Urine pH Ur Specific Welcome Urine Protein Urine Glucose (UA) Urine Ketones Urine Blood Urine Nitrate Urine Bilirubin Urine Urobilinogen Ur Leukocyte Esterase Urine RBC Urine WBC Ur Squamous Epith Cells Amorphous Sediment Urine Bacteria Hyaline Casts Urine Yeast U Random Total Protein Ur Random Sodium Urine Creatinine Protein/Creatinin Ratio Blood Type Rho(D) Type Micro: Microbiology 11/14/20 22:30 Urine Culture - Preliminary Urine,Clean Catch Yeast species Cardiac Studies: Echocardiogram 11/05/20
--- NOTE | 2020-11-16 12:44 | SC_ITS ---
WS: [id number] C-ARM RADIOGRAPHS CHEST; 3 IMAGES HISTORY: Intraoperative imaging during dialysis catheter placement. COMPARISON: None available. Intraoperative imaging during catheter placement. SC/C-arm FL for CVA [id number] IMPRESSION: Dialysis catheter placement with tip overlying the RIGHT heart.
[2020-11-16 13:08] LABS: INR 2.48 (0.8-1.2)
--- NOTE | 2020-11-16 13:12 | PC.NURSE ---
off unit to surgery via bed with 1 unit of platelet transfusion is running.
--- NOTE | 2020-11-16 13:22 | PC.NURSE ---
Platelet transfusion Platelet transfusion verified with second nurse Seb Mcfadden RN and initiated at 1256. TAR reflects later start time because of error with system the first administration documentation did not save.
[2020-11-16] MEDS: heparin, porcine 1,000 unit/mL INJ 10 mL 10000 UNIT (13:32)
[2020-11-16] MEDS: lidocaine 1% INJ 20 mL SUBCUT (13:34)
--- NOTE | 2020-11-16 13:52 | PM.OP ---
Operative Report Date of procedure: November 16, 2020 Pre-op Diagnosis: ARF Post-op diagnosis: same Procedure Done: 1. Placement of 23 cm long 16 [place] AshSplit tunneled hemodialysis catheter right internal jugular vein 2. Fluoroscopic guidance and interpretation for placement of catheter 3. Ultrasound guidance to access the right internal jugular vein Pathology: none sent Surgeon: Conrado Michele Anesthesia: MAC and Local Condition: stable Disposition: PACU Procedure: The patient was taken to the operating room and placed under MAC after IV antibiotic had been administered. The chest and neck were prepped and draped in a sterile manner bilaterally. An ultrasound of the right internal jugular vein revealed patent flow, no thrombus identified. Using introducer needle the internal jugular vein on the right side was accessed and guidewire passed into the right atrium under fluoroscopy. Under fluoroscopy the location for the dialysis catheter was marked. Using 11 blade a skin incision was extended at the vein access site as well as the previously marked location on the right chest wall. The dialysis catheter was attached to the tunneler and passed subcutaneously, exiting at the venous access site. Serial dilators were passed over the guidewire under fluoroscopy. Finally the dilator peel-away sheath was passed over the guidewire and the inner dilator and guidewire was removed and the dialysis catheter was introduced into the right internal jugular vein as the peel-away sheath was removed. The tip of the catheter was noted to be in the right atrium. Both ports of the catheter scout blood and flushed easily. The catheter was sutured to the skin using 2-0 Prolene and the venous access site was closed with 4-0 Monocryl and Dermabond. A total of 5 mL of 1:10,000 heparin was injected into the 2 ports under dialysis catheter. Fluoroscopic guidance and interpretation for passage of guidewire and dilator and placement of catheter in the right atrium.
--- NOTE | 2020-11-16 14:27 | ANE.PACU2 ---
Inpatient post-anesthesia follow up: Airway intact: Yes Vital signs: Temperature 97.8 F Pulse Rate [Monito r] 77 Pulse Rate 66 Respiratory Rate 20 Blood Pressure [Ri ght Arm] 131/72 Blood Pressure 96/52 Pulse Oximetry 97 Oxygen Delivery Me thod Nasal Cannula Oxygen Flow Rate 2 Fraction of Inspir ed Oxygen 21 Hydration adequate: Yes Nausea and vomiting: No Pain level: 2 Mental status: Baseline
--- NOTE | 2020-11-16 15:04 | PC.NURSE ---
report received from PACU Pt has been ushered to Dialysis room post placement of Hemodialysis tunneled catheter on right chest. Pt had MAC sedation only per pacu nurse.
[2020-11-16 15:22] LABS: Hepatitis B Surface Antigen Non-Reactive (Nonreactive)
--- NOTE | 2020-11-16 16:30 | PC.NURSE ---
Received from dialysis Pt is back from 1 session of dialysis. He is asleep. at bedside. Pt refused food and scds for now. Noted right upper chest tunneled hemodialysis. dressing has little blood. no bleeding, hematoma formation, pt denies any pain at this time. call light provided. bed alarm reset.
--- NOTE | 2020-11-16 19:10 | P.PN_ITS ---
Subjective Subjective: Interval history: planned to go to OR for tunneled HD placement and start dialysis after. Cr worsened more acutely at 4.9, poor urine output Medications: Reviewed: Yes Medication Review Details: Current Medications Acetaminophen (Acetaminophen 325 Mg Tablet) 650 mg PO Q6H PRN PRN Reason: MILD PAIN Last Admin: 11/05/20 14:38 Dose: 650 mg Documented by: Albuterol/Ipratropium (Ipratropium-Albuterol 3 Ml Neb) 3 ml INHALATION Q4H.RESPIRATORY [facility] Last Admin: 11/07/20 16:22 Dose: 3 ml Documented by: Atorvastatin Calcium (Atorvastatin 40 Mg Tablet) 20 mg PO DAILY@17 [facility] Last Admin: 11/06/20 17:07 Dose: 20 mg Documented by: Bumetanide (Bumetanide 0.25 Mg/Ml Sdv 4 Ml) 2 mg IV BID [facility] Last Admin: 11/07/20 09:21 Dose: 2 mg Documented by: Cyclobenzaprine HCl (Cyclobenzaprine 10 Mg Tablet) 5 mg PO BID PRN PRN Reason: MUSCLE CRAMPS Last Admin: 11/07/20 09:22 Dose: 5 mg Documented by: Folic Acid (Folic Acid 1 Mg Tablet) 1 mg PO DAILY@08 [facility] Last Admin: 11/07/20 09:26 Dose: 1 mg Documented by: Levofloxacin/Dextrose (Levaquin-D5w) 750 mg in 150 mls @ 100 mls/hr IV Q24H [facility]; Protocol Last Admin: 11/07/20 16:15 Dose: 100 mls/hr Documented by: Sodium Chloride (Sodium Chloride 0.9%) 250 mls @ 0 mls/hr IV .Q0M PRN PRN Reason: PRBC TRANSFUSION Last Infusion: 11/07/20 00:25 Dose: Infused Documented by: Lactulose (Lactulose Oral Liq 20 Gm/30 Ml Udc) 45 gm PO BID [facility] Last Admin: 11/07/20 09:21 Dose: 45 gm Documented by: Levetiracetam (Levetiracetam 500 Mg Tablet) 750 mg PO BID@08,17 [facility] Last Admin: 11/07/20 09:22 Dose: 750 mg Documented by: Metolazone (Metolazone 5 Mg Tablet) 5 mg PO DAILY [facility] Last Admin: 11/07/20 09:26 Dose: 5 mg Documented by: Metoprolol Tartrate (Metoprolol Tartrate 25 Mg Tablet) 12.5 mg PO BID@0900,2100 [facility] Last Admin: 11/07/20 09:26 Dose: 12.5 mg Documented by: Nitroglycerin (Nitroglycerin 0.4 Mg Sublingual Tablet) 0.4 mg SUBLINGUAL Q5M PRN PRN Reason: CHEST PAIN Last Admin: 11/05/20 13:00 Dose: 1 cap Documented by: Ondansetron HCl (Ondansetron 2 Mg/Ml Sdv 2 Ml) 4 mg IVP Q6H PRN PRN Reason: NAUSEA AND VOMITING Last Admin: 11/05/20 20:50 Dose: 4 mg Documented by: Pantoprazole Sodium (Pantoprazole 40 Mg Sdv) 40 mg IVP Q12H [facility] Last Admin: 11/07/20 05:18 Dose: 40 mg Documented by: Rifaximin (Rifaximin 550 Mg Tablet) 550 mg PO BID@0800,1700 [facility]; Protocol Last Admin: 11/07/20 09:33 Dose: 550 mg Documented by: Fluticasone/Salmeterol (Fluticasone-Salmeterol 250-50 Diskus) 1 puff INHALATION BID.RESPIRATORY [facility] Last Admin: 11/07/20 08:58 Dose: 1 puff Documented by: Sodium Chloride (Sodium Chloride 1 Gm Tablet) 1 gm PO BID [facility] Last Admin: 11/07/20 09:22 Dose: 1 gm Documented by: Spironolactone (Spironolactone 25 Mg Tablet) 25 mg PO DAILY@08 [facility] Last Admin: 11/07/20 09:26 Dose: 25 mg Documented by: Vitals/I&O/Wt Last Vital Signs Temp 97.5 F L 11/16/20 16:00 Pulse 69 11/16/20 16:00 Resp 22 H 11/16/20 16:00 BP 97/46 11/16/20 16:00 Pulse Ox 80 L 11/16/20 16:00 11/16/20 11/16/20 11/16/20 06:59 14:59 22:59 Intake Total 50 / 912 581 / 581 59 Output Total 100 / 320 0 / 0 Balance -50 / 592 581 / 581 59 Physical Exam Narrative: EXAM NARRATIVE: GEN: Awake, alert and oriented, no acute distress CVS: S1S2 N RS: CTA B/L except scattered crackles B/L Abd: Soft, nt/nd , bs+ GEOLOGY INSTRUCTOR: no focal neuro deficits EXT: gross anasarca, 3+ pitting edema B/L Urinary Catheter Management^: Saravia: Cath Placed During This Visit: yes, but has since been removed by the nurse Reason for Continuing Indwelling Catheter: Decision to DC Catheter Urinary Catheter Date of Insertion: 11/04/20 Urinary Catheter Time of Insertion: 16:32 Date Urinary Catheter Removed: 11/10/20 Time Urinary Catheter Discontinued: 15:00 Data : 11/16/20 04:51 11/16/20 04:51 Micro: Microbiology 11/14/20 22:30 Urine Culture - Preliminary Urine,Clean Catch Yeast species A&P Assessment and plan (1) NSTEMI (non-ST elevated myocardial infarction): NSTEMI type II: likely precipated by deman supply mismatch in [place]annen setting of anemia and CHF exacerbation 2D echo: 11/05 : Normal LV size and systolic function, with no RWMA , LVEF: 70%, mild aortic stenosis, peak velocity 2.6 m/s, mean gradient 13.2 mmHg, KAIA 2.6 cm squared. s/p PRBC transfuion for HB 7.6 currently stable FOBT : Negative, h.o GIB +, worsening thrombocytopenia , off ASA and eliquis currently Status: Acute (2) Heart failure, chronic, with acute decompensation: Ac on chronic Decompensated HFpEF Status: Acute Qualifiers: Heart failure type: unspecified Qualified Code(s): I50.9 - Heart failure, unspecified (3) Anasarca: Likely secondary to decompensated heart failure, decompensated liver cirrhosis. Appreciate cardiology and nephrology recommendations Had poor response to Bumex 4mg BID and metolazone Now on Lasix drip, metolazone 5mg BID and spirinolactone 50mg BID Additionally started on midodrine, octreotide . Status: Acute (4) Hyperbilirubinemia: Likely 2/2 to Congestive Hepatopathy Status: Acute (5) Anemia: Likely multifactorial secondary to chronic GI blood loss, cannot conclusively rule out MDS, hemolysis. S/P 4Us PRBC Current plan is to transfuse to maintain hemoglobin ~8. Status: Acute (6) Generalized weakness: Status: Acute (7) Aortic stenosis: Mild to moderate aortic valve stenosis with a valve area of 1.4 Status: Acute Qualifiers: Cardiac valve disease etiology: nonrheumatic Qualified Code(s): I35.0 - Nonrheumatic aortic (valve) stenosis (8) Liver, cirrhosis, portal: Continue Lactulose Continue Rifxamin 550 mg po BID Status: Acute (9) Hepatic encephalopathy: Grade 1 hepatic encephalopathy: Minimal changes in behavior : Improving Currently on lactulose Blood culture: Urine culture has grown: Enterococcus faecalis for which he received levofloxacin x 4 days Continue rifaximin Status: Acute (10) RAÚL (acute kidney injury): RAÚL on CKD , cr stable, overall trending up during admission Status: Acute (11) UTI (urinary tract infection): this is more likely to be colonization D/c abx and monitor closely Status: Acute (12) Atrial fibrillation: Currently Rate Controlled. Metoprolol tartrate 12.5 mg every 12 hours daily Initially on Low dose Eliquis 2/5 mg q12 h daily has been stopped. Status: Acute Qualifiers: Atrial fibrillation type: unspecified chronic Qualified Code(s): I48.20 - Chronic atrial fibrillation, unspecified (13) Hyperkalemia: Resolved Monitor BMP Status: Acute (14) Seizure: Continue Keppra 750 mg PO BID Continue Keppra 750 mg PO BID Status: Acute (15) Hyponatremia: Hypervolemic hyponatremia: Serum sodium is improvin Status: Acute (16) Thrombocytopenia: Chronic, follows with hematology Currently dropping platelt count ~50K Status: Acute Attestations Medical Necessity Statement*: worsening renal function, starting HD today, platelet and FFP transfusion priro to OR Coding Level of Care Code Acute Supply Specialist for [facility] Fwd Diagnoses NSTEMI (non-ST elevated myocardial infarction) I21.4 Heart failure, chronic, with acute decompensation I50.9 Heart failure type: unspecified Anasarca R60.1 Hyperbilirubinemia E80.6 Anemia D64.9 Generalized weakness R53.1 Aortic stenosis I35.0 Cardiac valve disease etiology: nonrheumatic Liver, cirrhosis, portal K74.69 Hepatic encephalopathy K72.90 RAÚL (acute kidney injury) N17.9 UTI (urinary tract infection) N39.0 Atrial fibrillation I48.20 Atrial fibrillation type: unspecified chronic Hyperkalemia E87.5 Seizure R56.9 Hyponatremia E87.1 Thrombocytopenia D69.6
--- NOTE | 2020-11-16 19:19 | P.PN_ITS ---
Subjective Subjective: Interval history: Patient had dialysis yesterday. He is feeling better. Very low urine output Vitals/I&O/Wt Last Vital Signs Temp 97.5 F L 11/16/20 16:00 Pulse 69 11/16/20 16:00 Resp 22 H 11/16/20 16:00 BP 97/46 11/16/20 16:00 Pulse Ox 80 L 11/16/20 16:00 11/16/20 11/16/20 11/16/20 06:59 14:59 22:59 Intake Total 50 / 912 581 / 581 1 Output Total 100 / 320 0 / 0 Balance -50 / 592 581 / 581 59 Physical Exam Narrative: EXAM NARRATIVE: Gen: Lethargic and sleepy today. HEENT: EOMI, pallor+, No icterus RS: decreased breath sound at bases, has crackles bilaterally CVS: S1, S2 irregular. Grade 3 systolic murmur in RUSB. 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, No FND GI: soft, NT, ND, BS+ Ext: 3+ bilateral edema+, anasarca; No clubbing Urinary Catheter Management^: Saravia: Cath Placed During This Visit: yes, but has since been removed by the nurse Reason for Continuing Indwelling Catheter: Decision to DC Catheter Urinary Catheter Date of Insertion: 11/04/20 Urinary Catheter Time of Insertion: 16:32 Date Urinary Catheter Removed: 11/10/20 Time Urinary Catheter Discontinued: 15:00 Data : 11/17/20 04:16 11/16/20 04:51 Micro: Microbiology 11/14/20 22:30 Urine Culture - Preliminary Urine,Clean Catch Yeast species A&P Assessment and plan (1) NSTEMI (non-ST elevated myocardial infarction): NSTEMI: Type 2 in setting of anemia and CHF is a possibility. He has h/o GI bleed, gastric ulcer as well as epistaxis. He is anemic as well. Recent stress test was normal. -Normal LV function and no RWMA on echo. ST-T wave changes in gildardo-lateral leads resolved -Troponin T baseline at 54 increased to 60 then to 76. No indication for invascie procedure at this time -No ASA d/t drop in Hb, on lipitor (may have to stop based on liver function). -On low dose beta desiree. Status: Acute (2) Anasarca: Anasarca likely is a combination of decompensated liver cirrhosis and CHF. Status: Acute (3) Heart failure, chronic, with acute decompensation: HFpEF -Normal LV and RV systolic function. Diuretics have been held. Patient had first session of dialysis today. Feels much better. Once renal congestion improves, changes of renal recovery will be better. Status: Acute Qualifiers: Heart failure type: unspecified Qualified Code(s): I50.9 - Heart failure, unspecified (4) Atrial fibrillation: Paroxysmal A. fib with RVR. -Currently on metoprolol tartrate 12.5 mg p.o. twice daily Status: Acute Qualifiers: Atrial fibrillation type: unspecified chronic Qualified Code(s): I48.20 - Chronic atrial fibrillation, unspecified Additional A&P Information Mild on recent echo Liver cirrohosis Macrocytic anemia: Received 3 units of packed red blood cells. Hepatic encephalopathy : On rifaximin and lactulose Hyponatremia RAÚL Abnormal liver enzymes. Thank you for allowing me to participate in patient's care. Please feel free to call with questions or concerns. Attestations Medical Necessity Statement*: Care expected to cross 2 midnights. 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
[2020-11-16] MEDS: midodrine 5 mg TABLET 10 MG PO (20:44)
--- NOTE | 2020-11-16 20:45 | PC.NURSE ---
notified Dr Zapata of bp 83/44, received order to hold metoprolol
[2020-11-17] VITALS (20 sets, daily range): BP systolic 86–99; BP diastolic 42–57; PULSE 60–64; RESP 13–24; TEMP 36.6–36.9; O2SAT 92–97
[2020-11-17] MEDS: ipratropium-albuterol 3 mL Neb INHALATION ×5 (03:31→23:17)
[2020-11-17 05:07] LABS: Basophils % 0.2 %; Eosinophils # 0.2 10^3/uL (0.0-0.8); Eosinophils % 1.2 %; Hematocrit 30.1 % (42.0-52.0); Hemoglobin 9.8 g/dL (11.7-16.6); Lymphocytes # 1.5 10^3/uL (0.8-4.8); Lymphocytes % 10.6 %; Mean Corpuscular HGB Conc 32.6 g/dL (30.0-36.0); Mean Corpuscular Hemoglobin 32.2 pg (28.0-34.0); Mean Platelet Volume 11.3 fL (7.4-10.4); Monocytes # 1.8 10^3/uL (0.2-0.9); Monocytes % 12.7 %; Neutrophils # 10.38 10^3/uL (1.8-7.7); Neutrophils % 74.7 %; Nucleated Red Blood Cells % 0.1 %; Platelet Count 63 10^3/cmm (130-400); Red Blood Count 3.04 10^6/uL (4.1-5.3); Red Cell Distribution Width 17.6 % (12.1-15.1); White Blood Count 13.9 10^3/uL (4.0-10.0)
[2020-11-17] MEDS: midodrine 5 mg TABLET 10 MG PO ×3 (08:01→21:26)
[2020-11-17] MEDS: pantoprazole DR 40 mg Tablet PO (08:01)
[2020-11-17] MEDS: folic acid 1 mg Tablet PO (08:01)
[2020-11-17] MEDS: lactulose oral liq 20 gm/30 mL UDC 45 GM PO ×2 (08:14→18:35)
--- NOTE | 2020-11-17 11:38 | PC.OT ---
OT tx attempted at this time. Pt is off the floor in dialysis. Will attempt again later today if possible.
--- NOTE | 2020-11-17 11:49 | PC.NURSE ---
off unit to hemodialysis via bed
--- NOTE | 2020-11-17 12:58 | P.PN_ITS ---
Subjective Subjective: Interval history: Dialysis initiated yesterday. He is tolerating it very poorly with soft blood pressures during dialysis. He is now making very little urine. Dialysis being attempted again today with a low hemodynamics, it is likely we will use albumin during his dialysis treatments. He still has significant lower extremity edema, no shortness of breath. He still feels quite weak. Medications: Reviewed: Yes Medication Review Details: Current Medications Acetaminophen (Acetaminophen 325 Mg Tablet) 650 mg PO Q6H PRN PRN Reason: MILD PAIN Last Admin: 11/05/20 14:38 Dose: 650 mg Documented by: Albuterol/Ipratropium (Ipratropium-Albuterol 3 Ml Neb) 3 ml INHALATION Q4H.RESPIRATORY [facility] Last Admin: 11/07/20 16:22 Dose: 3 ml Documented by: Atorvastatin Calcium (Atorvastatin 40 Mg Tablet) 20 mg PO DAILY@17 [facility] Last Admin: 11/06/20 17:07 Dose: 20 mg Documented by: Bumetanide (Bumetanide 0.25 Mg/Ml Sdv 4 Ml) 2 mg IV BID [facility] Last Admin: 11/07/20 09:21 Dose: 2 mg Documented by: Cyclobenzaprine HCl (Cyclobenzaprine 10 Mg Tablet) 5 mg PO BID PRN PRN Reason: MUSCLE CRAMPS Last Admin: 11/07/20 09:22 Dose: 5 mg Documented by: Folic Acid (Folic Acid 1 Mg Tablet) 1 mg PO DAILY@08 [facility] Last Admin: 11/07/20 09:26 Dose: 1 mg Documented by: Levofloxacin/Dextrose (Levaquin-D5w) 750 mg in 150 mls @ 100 mls/hr IV Q24H [facility]; Protocol Last Admin: 11/07/20 16:15 Dose: 100 mls/hr Documented by: Sodium Chloride (Sodium Chloride 0.9%) 250 mls @ 0 mls/hr IV .Q0M PRN PRN Reason: PRBC TRANSFUSION Last Infusion: 11/07/20 00:25 Dose: Infused Documented by: Lactulose (Lactulose Oral Liq 20 Gm/30 Ml Udc) 45 gm PO BID [facility] Last Admin: 11/07/20 09:21 Dose: 45 gm Documented by: Levetiracetam (Levetiracetam 500 Mg Tablet) 750 mg PO BID@08,17 [facility] Last Admin: 11/07/20 09:22 Dose: 750 mg Documented by: Metolazone (Metolazone 5 Mg Tablet) 5 mg PO DAILY [facility] Last Admin: 11/07/20 09:26 Dose: 5 mg Documented by: Metoprolol Tartrate (Metoprolol Tartrate 25 Mg Tablet) 12.5 mg PO BID@0900,2100 [facility] Last Admin: 11/07/20 09:26 Dose: 12.5 mg Documented by: Nitroglycerin (Nitroglycerin 0.4 Mg Sublingual Tablet) 0.4 mg SUBLINGUAL Q5M PRN PRN Reason: CHEST PAIN Last Admin: 11/05/20 13:00 Dose: 1 cap Documented by: Ondansetron HCl (Ondansetron 2 Mg/Ml Sdv 2 Ml) 4 mg IVP Q6H PRN PRN Reason: NAUSEA AND VOMITING Last Admin: 11/05/20 20:50 Dose: 4 mg Documented by: Pantoprazole Sodium (Pantoprazole 40 Mg Sdv) 40 mg IVP Q12H [facility] Last Admin: 11/07/20 05:18 Dose: 40 mg Documented by: Rifaximin (Rifaximin 550 Mg Tablet) 550 mg PO BID@0800,1700 [facility]; Protocol Last Admin: 11/07/20 09:33 Dose: 550 mg Documented by: Fluticasone/Salmeterol (Fluticasone-Salmeterol 250-50 Diskus) 1 puff INHALATION BID.RESPIRATORY [facility] Last Admin: 11/07/20 08:58 Dose: 1 puff Documented by: Sodium Chloride (Sodium Chloride 1 Gm Tablet) 1 gm PO BID [facility] Last Admin: 11/07/20 09:22 Dose: 1 gm Documented by: Spironolactone (Spironolactone 25 Mg Tablet) 25 mg PO DAILY@08 [facility] Last Admin: 11/07/20 09:26 Dose: 25 mg Documented by: Vitals/I&O/Wt Last Vital Signs Temp 98.5 F 11/17/20 07:26 Pulse 62 11/17/20 07:29 Resp 14 11/17/20 07:26 BP 92/49 11/17/20 07:26 Pulse Ox 94 11/17/20 07:26 11/16/20 11/17/20 11/17/20 22:59 06:59 14:59 Intake Total 110 / 691 100 / 791 240 / 240 Balance 110 / 691 100 / 791 240 / 240 Physical Exam Narrative: EXAM NARRATIVE: Constitutional: Awake, comfortable HEENT: Wet mucosa, no jvp, non icteric Lungs: Bilaterally discernible wheeze or rales in all lung zones CVS: S1 S2, no murmurs Abdo: Soft, BS ok Ext 4: 2-3+ edema, peripheral perfusion with no cyanosis Neurological: Grossly non-focal Urinary Catheter Management^: Saravia: Cath Placed During This Visit: yes, but has since been removed by the nurse Reason for Continuing Indwelling Catheter: Decision to DC Catheter Urinary Catheter Date of Insertion: 11/04/20 Urinary Catheter Time of Insertion: 16:32 Date Urinary Catheter Removed: 11/10/20 Time Urinary Catheter Discontinued: 15:00 Data : 11/17/20 04:16 11/16/20 04:51 Micro: Microbiology 11/14/20 22:30 Urine Culture - Preliminary Urine,Clean Catch Yeast species A&P Additional A&P Information 1. 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 I wonder if there is an element of hepatorenal physiology as we ll. FE urea 17% Consistent with prerenal physiology. Second dialysis treatment today, again gentle settings, more intense settings tomorrow Will stop the diuretics including the lasix, Spironolactone, metolazone as they are currently ineffective Hopefully with decompression of his venous system with effective ultrafiltration his cardiac output will improve Avoid usual nephrotoxic agents Strict I's and O's No need for renal imaging at this time, however, he should have a bladder scan daily by the bedside nurse. 2. Chemistry Labs look well balanced 3. Advanced liver disease On combination therapy including rifaximin, lactulose. For possible hepatorenal physiology will continue midodrine but will stop the octreotide. 4. Dispo field nurse case manager to set up outpatient hemodialysis. He will need to be monitored for renal recovery following his discharge. 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
[2020-11-17] MEDS: levETIRAcetam 500 mg Tablet 750 MG PO (14:31)
--- NOTE | 2020-11-17 14:42 | PC.NURSE ---
post dialysis hand-off report Tabitha Metcalf stated pt had 759 UF due to hypotension. Pt had 2 bags of Albumin 25%- at 12:25 pm and 1 pm. Per jarvis did not have any good result on his BP. Dr. Morales has been notified on this.
--- NOTE | 2020-11-17 14:46 | PC.NURSE ---
Noted Jaundiced on pts sclera Pt has had pmx of Cirrhosis.
--- NOTE | 2020-11-17 15:35 | P.PN_ITS ---
Subjective Subjective: Interval history: started dialysis yesterday, BP soft in HD, needed albumin infusions to maintain MAP. Anasarca appears to be improving. Medications: Reviewed: Yes Medication Review Details: Current Medications Acetaminophen (Acetaminophen 325 Mg Tablet) 650 mg PO Q6H PRN PRN Reason: MILD PAIN Last Admin: 11/05/20 14:38 Dose: 650 mg Documented by: Albuterol/Ipratropium (Ipratropium-Albuterol 3 Ml Neb) 3 ml INHALATION Q4H.RESPIRATORY [facility] Last Admin: 11/07/20 16:22 Dose: 3 ml Documented by: Atorvastatin Calcium (Atorvastatin 40 Mg Tablet) 20 mg PO DAILY@17 [facility] Last Admin: 11/06/20 17:07 Dose: 20 mg Documented by: Bumetanide (Bumetanide 0.25 Mg/Ml Sdv 4 Ml) 2 mg IV BID [facility] Last Admin: 11/07/20 09:21 Dose: 2 mg Documented by: Cyclobenzaprine HCl (Cyclobenzaprine 10 Mg Tablet) 5 mg PO BID PRN PRN Reason: MUSCLE CRAMPS Last Admin: 11/07/20 09:22 Dose: 5 mg Documented by: Folic Acid (Folic Acid 1 Mg Tablet) 1 mg PO DAILY@08 [facility] Last Admin: 11/07/20 09:26 Dose: 1 mg Documented by: Levofloxacin/Dextrose (Levaquin-D5w) 750 mg in 150 mls @ 100 mls/hr IV Q24H [facility]; Protocol Last Admin: 11/07/20 16:15 Dose: 100 mls/hr Documented by: Sodium Chloride (Sodium Chloride 0.9%) 250 mls @ 0 mls/hr IV .Q0M PRN PRN Reason: PRBC TRANSFUSION Last Infusion: 11/07/20 00:25 Dose: Infused Documented by: Lactulose (Lactulose Oral Liq 20 Gm/30 Ml Udc) 45 gm PO BID [facility] Last Admin: 11/07/20 09:21 Dose: 45 gm Documented by: Levetiracetam (Levetiracetam 500 Mg Tablet) 750 mg PO BID@08,17 [facility] Last Admin: 11/07/20 09:22 Dose: 750 mg Documented by: Metolazone (Metolazone 5 Mg Tablet) 5 mg PO DAILY [facility] Last Admin: 11/07/20 09:26 Dose: 5 mg Documented by: Metoprolol Tartrate (Metoprolol Tartrate 25 Mg Tablet) 12.5 mg PO BID@0900,2100 [facility] Last Admin: 11/07/20 09:26 Dose: 12.5 mg Documented by: Nitroglycerin (Nitroglycerin 0.4 Mg Sublingual Tablet) 0.4 mg SUBLINGUAL Q5M PRN PRN Reason: CHEST PAIN Last Admin: 11/05/20 13:00 Dose: 1 cap Documented by: Ondansetron HCl (Ondansetron 2 Mg/Ml Sdv 2 Ml) 4 mg IVP Q6H PRN PRN Reason: NAUSEA AND VOMITING Last Admin: 11/05/20 20:50 Dose: 4 mg Documented by: Pantoprazole Sodium (Pantoprazole 40 Mg Sdv) 40 mg IVP Q12H [facility] Last Admin: 11/07/20 05:18 Dose: 40 mg Documented by: Rifaximin (Rifaximin 550 Mg Tablet) 550 mg PO BID@0800,1700 [facility]; Protocol Last Admin: 11/07/20 09:33 Dose: 550 mg Documented by: Fluticasone/Salmeterol (Fluticasone-Salmeterol 250-50 Diskus) 1 puff INHALATION BID.RESPIRATORY [facility] Last Admin: 11/07/20 08:58 Dose: 1 puff Documented by: Sodium Chloride (Sodium Chloride 1 Gm Tablet) 1 gm PO BID [facility] Last Admin: 11/07/20 09:22 Dose: 1 gm Documented by: Spironolactone (Spironolactone 25 Mg Tablet) 25 mg PO DAILY@08 [facility] Last Admin: 11/07/20 09:26 Dose: 25 mg Documented by: Vitals/I&O/Wt Last Vital Signs Temp 98.5 F 11/17/20 07:26 Pulse 60 11/17/20 12:00 Resp 14 11/17/20 07:26 BP 86/48 11/17/20 12:00 Pulse Ox 95 11/17/20 12:00 11/17/20 11/17/20 11/17/20 06:59 14:59 22:59 Intake Total 100 / 791 476 / 476 Balance 100 / 791 476 / 476 Physical Exam Narrative: EXAM NARRATIVE: GEN: Awake, alert and oriented, no acute distress CVS: S1S2 N RS: CTA B/L except scattered crackles B/L Abd: Soft, nt/nd , bs+ TRIAL JUDGE: no focal neuro deficits EXT: gross anasarca, pitting edema B/L however improved over previously. Urinary Catheter Management^: Saravia: Cath Placed During This Visit: yes, but has since been removed by the nurse Reason for Continuing Indwelling Catheter: Decision to DC Catheter Urinary Catheter Date of Insertion: 11/04/20 Urinary Catheter Time of Insertion: 16:32 Date Urinary Catheter Removed: 11/10/20 Time Urinary Catheter Discontinued: 15:00 Data : 11/17/20 04:16 11/16/20 04:51 A&P Assessment and plan (1) NSTEMI (non-ST elevated myocardial infarction): NSTEMI type II: likely precipated by deman supply mismatch in [place] setting of anemia and CHF exacerbation 2D echo: 11/05 : Normal LV size and systolic function, with no RWMA , LVEF: 70%, mild aortic stenosis, peak velocity 2.6 m/s, mean gradient 13.2 mmHg, KAIA 2.6 cm squared. s/p PRBC transfuion for HB 7.6 currently stable FOBT : Negative, h.o GIB +, worsening thrombocytopenia , off ASA and eliquis currently Status: Acute (2) Heart failure, chronic, with acute decompensation: Ac on chronic Decompensated HFpEF Status: Acute Qualifiers: Heart failure type: unspecified Qualified Code(s): I50.9 - Heart failure, unspecified (3) Anasarca: Likely secondary to decompensated heart failure, decompensated liver cirrhosis. Appreciate cardiology and nephrology recommendations Had poor response to Bumex 4mg BID and metolazone [place] started on HD due to worsening renal funtion, oliguria, poor response to diuretics . Status: Acute (4) Hyperbilirubinemia: Likely 2/2 to Congestive Hepatopathy Status: Acute (5) Anemia: Likely multifactorial secondary to chronic GI blood loss, cannot conclusively rule out MDS, hemolysis. S/P 4Us PRBC Current plan is to transfuse to maintain hemoglobin ~8. Status: Acute (6) Generalized weakness: Status: Acute (7) Aortic stenosis: Mild to moderate aortic valve stenosis with a valve area of 1.4 Status: Acute Qualifiers: Cardiac valve disease etiology: nonrheumatic Qualified Code(s): I35.0 - Nonrheumatic aortic (valve) stenosis (8) Liver, cirrhosis, portal: Continue Lactulose Continue Rifxamin 550 mg po BID Status: Acute (9) Hepatic encephalopathy: Grade 1 hepatic encephalopathy: Minimal changes in behavior : Improving Currently on lactulose Blood culture: Urine culture has grown: Enterococcus faecalis for which he received levofloxacin x 4 days Continue rifaximin Status: Acute (10) RAÚL (acute kidney injury): RAÚL on CKD , cr stable, overall trending up during admission Status: Acute (11) UTI (urinary tract infection): this is more likely to be colonization D/c abx and monitor closely Status: Acute (12) Atrial fibrillation: Currently Rate Controlled. Metoprolol tartrate 12.5 mg every 12 hours daily Initially on Low dose Eliquis 2/5 mg q12 h daily has been stopped. Status: Acute Qualifiers: Atrial fibrillation type: unspecified chronic Qualified Code(s): I48.20 - Chronic atrial fibrillation, unspecified (13) Hyperkalemia: Resolved Monitor BMP Status: Acute (14) Seizure: Continue Keppra 750 mg PO BID Continue Keppra 750 mg PO BID Status: Acute (15) Hyponatremia: Hypervolemic hyponatremia: Serum sodium is improvin Status: Acute (16) Thrombocytopenia: Chronic, follows with hematology Currently dropping platelt count ~50K Status: Acute Attestations Medical Necessity Statement*: continuing hemodialysis, anasarca finally appears to be improving, will need few more HS dessions Coding Level of Care Code Acute 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
--- NOTE | 2020-11-17 15:55 | PC.OT ---
OT TREATMENT ATTEMPTED THIS P.M. PATIENT IS SLEEPING SOUNDLY. WILL ATTEMPT AGAIN TOMORROW.
--- NOTE | 2020-11-17 21:58 | P.PN_ITS ---
Subjective Subjective: Interval history: Feels better. Medications: Reviewed: Yes Vitals/I&O/Wt Last Vital Signs Temp 98 F 11/17/20 19:11 Pulse 62 11/17/20 19:50 Resp 16 11/17/20 19:47 BP 96/52 11/17/20 19:11 Pulse Ox 97 11/17/20 19:47 11/17/20 11/17/20 11/17/20 06:59 14:59 22:59 Intake Total 100 / 791 476 / 476 200 / 676 Balance 100 / 791 476 / 476 200 / 676 Physical Exam Narrative: EXAM NARRATIVE: EXAM NARRATIVE: Gen: obese man lying propped up in bed HEENT: EOMI, pallor+, No icterus RS: decreased breath sound at bases CVS: S1, S2 irregular. Grade 2/6 systolic murmur in RUSB DIRECTOR OF ADMISSIONS: AAOx 3, No FND GI: soft, NT, ND, BS+ Ext: 3+ bilateral edema+, No cyanosis Urinary Catheter Management^: Saravia: Cath Placed During This Visit: yes, but has since been removed by the nurse Reason for Continuing Indwelling Catheter: Decision to DC Catheter Urinary Catheter Date of Insertion: 11/04/20 Urinary Catheter Time of Insertion: 16:32 Date Urinary Catheter Removed: 11/10/20 Time Urinary Catheter Discontinued: 15:00 Data : 11/18/20 04:29 11/16/20 04:51 A&P Assessment and plan (1) RAÚL (acute kidney injury): currently on dialysis via tunneled catheter. Underwent dialysis yesterday. -NO UO. Status: Acute (2) Anasarca: Anasarca likely is a combination of decompensated liver cirrhosis and CHF. Status: Acute (3) Heart failure, chronic, with acute decompensation: HFpEF -Normal LV and RV systolic function. Diuretics have been held. Patient had second session of dialysis. Feels much better. Status: Acute Qualifiers: Heart failure type: unspecified Qualified Code(s): I50.9 - Heart failure, unspecified (4) NSTEMI (non-ST elevated myocardial infarction): NSTEMI: Type 2 in setting of anemia and CHF is a possibility. He has h/o GI bleed, gastric ulcer as well as epistaxis. He is anemic as well. Recent stress test was normal. -Normal LV function and no RWMA on echo. ST-T wave changes in gildardo-lateral leads resolved -Troponin T baseline at 54 increased to 60 then to 76. No indication for invasive procedure at this time -No ASA d/t drop in Hb, not on lipitor. Status: Acute (5) Atrial fibrillation: Paroxysmal A. fib with RVR. -Currently on metoprolol tartrate 12.5 mg p.o. twice daily Status: Acute Qualifiers: Atrial fibrillation type: unspecified chronic Qualified Code(s): I48.20 - Chronic atrial fibrillation, unspecified Additional A&P Information Mild on recent echo (Mild aortic valve stenosis, peak velocity 2.6 m/s, mean gradient 13.2 mmHg, KAIA 2.6 cm squared) Liver cirrohosis Macrocytic anemia: Received 3 units of packed red blood cells. Hepatic encephalopathy : On rifaximin and lactulose Hyponatremia Abnormal liver enzymes. Thank you for allowing me to participate in patient's care. Please feel free to call with questions or concerns. Attestations Medical Necessity Statement*: Per primary team Time Spent in Patient Care: 16 - 35 minutes (>than 50% of time spent in counselling and/or direct pt care on unit) . 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
[2020-11-18] VITALS (16 sets, daily range): BP systolic 93–111; BP diastolic 52–61; PULSE 62–72; RESP 13–22; TEMP 36.6–36.8; O2SAT 90–96
--- NOTE | 2020-11-18 00:36 | PC.NURSE ---
Bedside report received from Yasmani RN. Patient is sitting up in bed still eating dinner. Patient is A & O. Has no C/O pain or other needs at this time. Nurse will continue to monitor.
[2020-11-18] MEDS: ipratropium-albuterol 3 mL Neb INHALATION ×5 (03:23→19:53)
[2020-11-18 05:21] LABS: Basophils % 0.3 %; Eosinophils # 0.3 10^3/uL (0.0-0.8); Eosinophils % 2.6 %; Hematocrit 29.6 % (42.0-52.0); Hemoglobin 9.8 g/dL (11.7-16.6); Lymphocytes # 1.7 10^3/uL (0.8-4.8); Lymphocytes % 13.8 %; Mean Corpuscular HGB Conc 33.1 g/dL (30.0-36.0); Mean Corpuscular Hemoglobin 32.9 pg (28.0-34.0); Mean Corpuscular Volume 99.3 fL (80-94); Mean Platelet Volume 10.9 fL (7.4-10.4); Monocytes # 1.9 10^3/uL (0.2-0.9); Monocytes % 15.9 %; Neutrophils # 8.02 10^3/uL (1.8-7.7); Neutrophils % 66.5 %; Nucleated Red Blood Cells % 0 %; Platelet Count 60 10^3/cmm (130-400); Red Blood Count 2.98 10^6/uL (4.1-5.3); Red Cell Distribution Width 17.7 % (12.1-15.1); White Blood Count 12.1 10^3/uL (4.0-10.0)
[2020-11-18] MEDS: midodrine 5 mg TABLET 10 MG PO ×3 (08:38→21:14)
[2020-11-18] MEDS: folic acid 1 mg Tablet PO (08:38)
[2020-11-18] MEDS: levETIRAcetam 500 mg Tablet 750 MG PO ×2 (08:39→18:19)
[2020-11-18] MEDS: pantoprazole DR 40 mg Tablet PO (08:39)
[2020-11-18] MEDS: lactulose oral liq 20 gm/30 mL UDC 45 GM PO ×2 (08:41→18:19)
--- NOTE | 2020-11-18 10:12 | XR_ITS ---
WS: [id number] Portable AP semi upright chest, 11/18/2020 Clinical Data: pulmonary congestion Comparison: Portable chest, 11/11/2020. Findings: The bilateral patchy opacities have increased especially at the lung bases. There are small bilateral pleural effusions. The heart is at the upper limits of normal. No nodules or masses are se en. There is no pneumothorax. The right dialysis catheter is in good position. Monitor leads are on t he chest wall. XR/XR chest 1V portable [id number] Impression: 1. Patchy bilateral opacities increased in both lung bases which could represen t worsening pneumonia and/or pulmonary vascular congestion. 2. Cardiomegaly and small bilateral effusions.
--- NOTE | 2020-11-18 10:15 | P.PN_ITS ---
Subjective Subjective: Interval history: He was seen walking with walker in [facility]. Feels well. bedside at the time of evaluation. Medications: Reviewed: Yes Vitals/I&O/Wt Last Vital Signs Temp 98.0 F 11/18/20 07:14 Pulse 64 11/18/20 07:56 Resp 18 11/18/20 07:56 BP 104/61 11/18/20 07:14 Pulse Ox 93 11/18/20 07:56 11/17/20 11/18/20 11/18/20 22:59 06:59 14:59 Intake Total 200 / 676 100 / 776 120 / 120 Balance 200 / 676 100 / 776 120 / 120 Physical Exam Narrative: EXAM NARRATIVE: Gen: obese man lying propped up in bed HEENT: EOMI, pallor+, No icterus RS: decreased breath sound at bases CVS: S1, S2 irregular. 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 Underwent dialysis yesterday. -NO UO. Status: Acute (2) Anasarca: Anasarca likely is a combination of decompensated liver cirrhosis and CHF. Status: Acute (3) Heart failure, chronic, with acute decompensation: HFpEF -Normal LV and RV systolic function. Diuretics have been held. Patient had second session of dialysis. Feels much better. -BP soft and is on midodrine. Status: Acute Qualifiers: Heart failure type: unspecified Qualified Code(s): I50.9 - Heart failure, unspecified (4) NSTEMI (non-ST elevated myocardial infarction): NSTEMI: Type 2 in setting of anemia and CHF is a possibility. He has h/o GI bleed, gastric ulcer as well as epistaxis. He is anemic as well. Recent stress test was normal. -Normal LV function and no RWMA on echo. ST-T wave changes in gildardo-lateral leads resolved -Troponin T baseline at 54 increased to 60 then to 76. No indication for invasive procedure at this time -No ASA d/t drop in Hb, not on lipitor. Status: Acute (5) Atrial fibrillation: Paroxysmal A. fib with RVR. Status: Acute Qualifiers: Atrial fibrillation type: unspecified chronic Qualified Code(s): I48.20 - Chronic atrial fibrillation, unspecified Additional A&P Information Mild on recent echo (Mild aortic valve stenosis, peak velocity 2.6 m/s, mean gradient 13.2 mmHg, KAIA 2.6 cm squared) Liver cirrohosis Macrocytic anemia: Received 3 units of packed red blood cells. Hepatic encephalopathy : On rifaximin and lactulose Hyponatremia Abnormal liver enzymes. Thank you for allowing me to participate in patient's care. Please feel free to call with questions or concerns. Attestations Medical Necessity Statement*: Per primary team Time Spent in Patient Care: 16 - 35 minutes (>than 50% of time spent in counselling and/or direct pt care on unit) . 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
--- NOTE | 2020-11-18 10:43 | PC.NUTR ---
Dietary staff requested RD to speak with pt regarding Renal dialysis diet. Provided education regarding diet and rationale, but did emphasize that K and Phos restrictions may not be necessary long-term, depending on renal function and HD decisions. Encouraged decreased Na diet regardless of renal fx given other health concerns. Pt verbalized understanding. Recommend obtain current weight, and check lab Na, K, Phos, BUN, and Cr. Recommend Nepro once daily for additional kcal/protein given poor po intakes.
--- NOTE | 2020-11-18 11:08 | PC.SOCIAL ---
IMM Update Pg. 2 of IMM updated and reviewed with patient and at bedside, who verbalized understanding. Copy provided.
--- NOTE | 2020-11-18 13:02 | PC.NURSE ---
Patient left for dialysis. Patient will be receiving dialysis for 3.5 hours today. VS stable upon departure.
--- NOTE | 2020-11-18 13:51 | P.PN_ITS ---
Subjective Subjective: Interval history: Today is his third day for dialysis. Over the last 2 days we have had difficulty maintaining adequate blood pressures during his dialysis treatments. Subjectively he has improved lower extremity edema, improved energy, no uremic symptoms. Medications: Reviewed: Yes Medication Review Details: Current Medications Acetaminophen (Acetaminophen 325 Mg Tablet) 650 mg PO Q6H PRN PRN Reason: MILD PAIN Last Admin: 11/05/20 14:38 Dose: 650 mg Documented by: Albuterol/Ipratropium (Ipratropium-Albuterol 3 Ml Neb) 3 ml INHALATION Q4H.RESPIRATORY [facility] Last Admin: 11/07/20 16:22 Dose: 3 ml Documented by: Atorvastatin Calcium (Atorvastatin 40 Mg Tablet) 20 mg PO DAILY@17 [facility] Last Admin: 11/06/20 17:07 Dose: 20 mg Documented by: Bumetanide (Bumetanide 0.25 Mg/Ml Sdv 4 Ml) 2 mg IV BID [facility] Last Admin: 11/07/20 09:21 Dose: 2 mg Documented by: Cyclobenzaprine HCl (Cyclobenzaprine 10 Mg Tablet) 5 mg PO BID PRN PRN Reason: MUSCLE CRAMPS Last Admin: 11/07/20 09:22 Dose: 5 mg Documented by: Folic Acid (Folic Acid 1 Mg Tablet) 1 mg PO DAILY@08 [facility] Last Admin: 11/07/20 09:26 Dose: 1 mg Documented by: Levofloxacin/Dextrose (Levaquin-D5w) 750 mg in 150 mls @ 100 mls/hr IV Q24H [facility]; Protocol Last Admin: 11/07/20 16:15 Dose: 100 mls/hr Documented by: Sodium Chloride (Sodium Chloride 0.9%) 250 mls @ 0 mls/hr IV .Q0M PRN PRN Reason: PRBC TRANSFUSION Last Infusion: 11/07/20 00:25 Dose: Infused Documented by: Lactulose (Lactulose Oral Liq 20 Gm/30 Ml Udc) 45 gm PO BID [facility] Last Admin: 11/07/20 09:21 Dose: 45 gm Documented by: Levetiracetam (Levetiracetam 500 Mg Tablet) 750 mg PO BID@08,17 [facility] Last Admin: 11/07/20 09:22 Dose: 750 mg Documented by: Metolazone (Metolazone 5 Mg Tablet) 5 mg PO DAILY [facility] Last Admin: 11/07/20 09:26 Dose: 5 mg Documented by: Metoprolol Tartrate (Metoprolol Tartrate 25 Mg Tablet) 12.5 mg PO BID@0900,2100 [facility] Last Admin: 11/07/20 09:26 Dose: 12.5 mg Documented by: Nitroglycerin (Nitroglycerin 0.4 Mg Sublingual Tablet) 0.4 mg SUBLINGUAL Q5M PRN PRN Reason: CHEST PAIN Last Admin: 11/05/20 13:00 Dose: 1 cap Documented by: Ondansetron HCl (Ondansetron 2 Mg/Ml Sdv 2 Ml) 4 mg IVP Q6H PRN PRN Reason: NAUSEA AND VOMITING Last Admin: 11/05/20 20:50 Dose: 4 mg Documented by: Pantoprazole Sodium (Pantoprazole 40 Mg Sdv) 40 mg IVP Q12H [facility] Last Admin: 11/07/20 05:18 Dose: 40 mg Documented by: Rifaximin (Rifaximin 550 Mg Tablet) 550 mg PO BID@0800,1700 [facility]; Protocol Last Admin: 11/07/20 09:33 Dose: 550 mg Documented by: Fluticasone/Salmeterol (Fluticasone-Salmeterol 250-50 Diskus) 1 puff INHALATION BID.RESPIRATORY [facility] Last Admin: 11/07/20 08:58 Dose: 1 puff Documented by: Sodium Chloride (Sodium Chloride 1 Gm Tablet) 1 gm PO BID [facility] Last Admin: 11/07/20 09:22 Dose: 1 gm Documented by: Spironolactone (Spironolactone 25 Mg Tablet) 25 mg PO DAILY@08 [facility] Last Admin: 11/07/20 09:26 Dose: 25 mg Documented by: Vitals/I&O/Wt Last Vital Signs Temp 98.0 F 11/18/20 07:14 Pulse 68 11/18/20 11:13 Resp 16 11/18/20 11:08 BP 104/61 11/18/20 07:14 Pulse Ox 93 11/18/20 11:08 11/17/20 11/18/20 11/18/20 22:59 06:59 14:59 Intake Total 200 / 676 100 / 776 120 / 120 Balance 200 / 676 100 / 776 120 / 120 Physical Exam Narrative: EXAM NARRATIVE: Constitutional: Awake, comfortable HEENT: Wet mucosa, no jvp, non icteric Lungs: Bilaterally discernible wheeze or rales in all lung zones CVS: S1 S2, no murmurs Abdo: Soft, BS ok Ext 4: 1-2+ edema, peripheral perfusion with no cyanosis Neurological: Grossly non-focal Urinary Catheter Management^: Saravia: Cath Placed During This Visit: yes, but has since been removed by the nurse Reason for Continuing Indwelling Catheter: Decision to DC Catheter Urinary Catheter Date of Insertion: 11/04/20 Urinary Catheter Time of Insertion: 16:32 Date Urinary Catheter Removed: 11/10/20 Time Urinary Catheter Discontinued: 15:00 Data : 11/18/20 04:29 11/16/20 04:51 A&P Additional A&P Information 1. 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 I wonder if there is an element of hepatorenal physiology as well. FE urea 17% Consistent with prerenal physiology. Third dialysis session today, we will use albumin to help support blood pressure during treatment. Plan next dialysis session on Monday. Case management to organize outpatient dialysis at this time. Diuretic therapy currently on hold. Hopefully with decompression of his venous system with effective ultrafiltration his cardiac output will improve Avoid usual nephrotoxic agents Strict I's and O's No need for renal imaging at this time, however, he should have a bladder scan daily by the bedside nurse. 2. Chemistry Blood test with minor chemical aberration, continue to monitor. 3. Advanced liver disease On combination therapy including rifaximin, lactulose. For possible hepatorenal physiology will continue midodrine but will stop the octreotide. 4. Dispo procedure manager to set up outpatient hemodialysis. He will need to be monitored for renal recovery following his discharge. Thank you for consultation, it is a pleasure to follow these cases with you Exam and interview performed with aid of bedside RN using telemedicine Time spent 20 min inc > 50% of time in face to face counseling Vladimir Morales MD [facility] Renal Care [phone] Attestations Medical Necessity Statement*: Eval for RAÚL Coding Level of Care Code Acute Manager [employer] Fund for [employer]
--- NOTE | 2020-11-18 15:16 | PC.OT ---
SUÁREZ returned to complete OT tx session, but pt has gone to dialysis. Will attempt tx again tomorrow.
--- NOTE | 2020-11-18 17:00 | PM.PN ---
Subjective Subjective: Interval history: 3rd session HD today, no acute interim events , LE edema persisting but improving over previous days Medications: Reviewed: Yes Medication Review Details: Current Medications Acetaminophen (Acetaminophen 325 Mg Tablet) 650 mg PO Q6H PRN PRN Reason: MILD PAIN Last Admin: 11/05/20 14:38 Dose: 650 mg Documented by: Albuterol/Ipratropium (Ipratropium-Albuterol 3 Ml Neb) 3 ml INHALATION Q4H.RESPIRATORY [facility] Last Admin: 11/07/20 16:22 Dose: 3 ml Documented by: Atorvastatin Calcium (Atorvastatin 40 Mg Tablet) 20 mg PO DAILY@17 [facility] Last Admin: 11/06/20 17:07 Dose: 20 mg Documented by: Bumetanide (Bumetanide 0.25 Mg/Ml Sdv 4 Ml) 2 mg IV BID [facility] Last Admin: 11/07/20 09:21 Dose: 2 mg Documented by: Cyclobenzaprine HCl (Cyclobenzaprine 10 Mg Tablet) 5 mg PO BID PRN PRN Reason: MUSCLE CRAMPS Last Admin: 11/07/20 09:22 Dose: 5 mg Documented by: Folic Acid (Folic Acid 1 Mg Tablet) 1 mg PO DAILY@08 [facility] Last Admin: 11/07/20 09:26 Dose: 1 mg Documented by: Levofloxacin/Dextrose (Levaquin-D5w) 750 mg in 150 mls @ 100 mls/hr IV Q24H [facility]; Protocol Last Admin: 11/07/20 16:15 Dose: 100 mls/hr Documented by: Sodium Chloride (Sodium Chloride 0.9%) 250 mls @ 0 mls/hr IV .Q0M PRN PRN Reason: PRBC TRANSFUSION Last Infusion: 11/07/20 00:25 Dose: Infused Documented by: Lactulose (Lactulose Oral Liq 20 Gm/30 Ml Udc) 45 gm PO BID [facility] Last Admin: 11/07/20 09:21 Dose: 45 gm Documented by: Levetiracetam (Levetiracetam 500 Mg Tablet) 750 mg PO BID@08,17 [facility] Last Admin: 11/07/20 09:22 Dose: 750 mg Documented by: Metolazone (Metolazone 5 Mg Tablet) 5 mg PO DAILY [facility] Last Admin: 11/07/20 09:26 Dose: 5 mg Documented by: Metoprolol Tartrate (Metoprolol Tartrate 25 Mg Tablet) 12.5 mg PO BID@0900,2100 [facility] Last Admin: 11/07/20 09:26 Dose: 12.5 mg Documented by: Nitroglycerin (Nitroglycerin 0.4 Mg Sublingual Tablet) 0.4 mg SUBLINGUAL Q5M PRN PRN Reason: CHEST PAIN Last Admin: 11/05/20 13:00 Dose: 1 cap Documented by: Ondansetron HCl (Ondansetron 2 Mg/Ml Sdv 2 Ml) 4 mg IVP Q6H PRN PRN Reason: NAUSEA AND VOMITING Last Admin: 11/05/20 20:50 Dose: 4 mg Documented by: Pantoprazole Sodium (Pantoprazole 40 Mg Sdv) 40 mg IVP Q12H [facility] Last Admin: 11/07/20 05:18 Dose: 40 mg Documented by: Rifaximin (Rifaximin 550 Mg Tablet) 550 mg PO BID@0800,1700 [facility]; Protocol Last Admin: 11/07/20 09:33 Dose: 550 mg Documented by: Fluticasone/Salmeterol (Fluticasone-Salmeterol 250-50 Diskus) 1 puff INHALATION BID.RESPIRATORY [facility] Last Admin: 11/07/20 08:58 Dose: 1 puff Documented by: Sodium Chloride (Sodium Chloride 1 Gm Tablet) 1 gm PO BID [facility] Last Admin: 11/07/20 09:22 Dose: 1 gm Documented by: Spironolactone (Spironolactone 25 Mg Tablet) 25 mg PO DAILY@08 [facility] Last Admin: 11/07/20 09:26 Dose: 25 mg Documented by: Vitals/I&O/Wt Last Vital Signs Temp 98.0 F 11/18/20 07:14 Pulse 72 11/18/20 16:51 Resp 17 11/18/20 16:45 BP 104/61 11/18/20 07:14 Pulse Ox 96 11/18/20 16:45 11/18/20 11/18/20 11/18/20 06:59 14:59 22:59 Intake Total 100 / 776 120 / 120 Balance 100 / 776 120 / 120 Physical Exam Narrative: EXAM NARRATIVE: GEN: Awake, alert and oriented, no acute distress CVS: S1S2 N RS: CTA B/L except scattered crackles B/L Abd: Soft, nt/nd , bs+ PROFESSOR OF BIOSTATISTICS: no focal neuro deficits EXT: gross anasarca, pitting edema B/L however improved over previously. Urinary Catheter Management^: Saravia: Cath Placed During This Visit: yes, but has since been removed by the nurse Reason for Continuing Indwelling Catheter: Decision to DC Catheter Urinary Catheter Date of Insertion: 11/04/20 Urinary Catheter Time of Insertion: 16:32 Date Urinary Catheter Removed: 11/10/20 Time Urinary Catheter Discontinued: 15:00 Data : 11/18/20 04:29 11/16/20 04:51 Micro: Microbiology 11/14/20 22:30 Urine Culture - Final Urine,Clean Catch Kristin albicans A&P Assessment and plan (1) NSTEMI (non-ST elevated myocardial infarction): NSTEMI type II: likely precipated by deman supply mismatch in shannen setting of anemia and CHF exacerbation 2D echo: 11/05 : Normal LV size and systolic function, with no RWMA , LVEF: 70%, mild aortic stenosis, peak velocity 2.6 m/s, mean gradient 13.2 mmHg, KAIA 2.6 cm squared. s/p PRBC transfuion for HB 7.6 currently stable FOBT : Negative, h.o GIB +, worsening thrombocytopenia , off ASA and eliquis currently Status: Acute (2) Heart failure, chronic, with acute decompensation: Ac on chronic Decompensated HFpEF Status: Acute Qualifiers: Heart failure type: unspecified Qualified Code(s): I50.9 - Heart failure, unspecified (3) Anasarca: Likely secondary to decompensated heart failure, decompensated liver cirrhosis. Appreciate cardiology and nephrology recommendations Had poor response to Bumex 4mg BID and metolazone Now started on HD due to worsening renal funtion, oliguria, poor response to diuretics 3rd session of HD today, outpatient HD set up as MWF. . Status: Acute (4) Hyperbilirubinemia: Likely 2/2 to Congestive Hepatopathy Status: Acute (5) Anemia: Likely multifactorial secondary to chronic GI blood loss, cannot conclusively rule out MDS, hemolysis. S/P 4Us PRBC Current plan is to transfuse to maintain hemoglobin ~8. Status: Acute (6) Generalized weakness: Status: Acute (7) Aortic stenosis: Mild to moderate aortic valve stenosis with a valve area of 1.4 Status: Acute Qualifiers: Cardiac valve disease etiology: nonrheumatic Qualified Code(s): I35.0 - Nonrheumatic aortic (valve) stenosis (8) Liver, cirrhosis, portal: Continue Lactulose Continue Rifxamin 550 mg po BID Status: Acute (9) Hepatic encephalopathy: Grade 1 hepatic encephalopathy: Minimal changes in behavior : Improving Currently on lactulose Blood culture: Urine culture has grown: Enterococcus faecalis for which he received levofloxacin x 4 days Continue rifaximin Status: Acute (10) RAÚL (acute kidney injury): RAÚL on CKD , cr stable, overall trending up during admission Status: Acute (11) UTI (urinary tract infection): this is more likely to be colonization D/c abx and monitor closely Status: Acute (12) Atrial fibrillation: Currently Rate Controlled. Metoprolol tartrate 12.5 mg every 12 hours daily Initially on Low dose Eliquis 2/5 mg q12 h daily has been stopped. Status: Acute Qualifiers: Atrial fibrillation type: unspecified chronic Qualified Code(s): I48.20 - Chronic atrial fibrillation, unspecified (13) Hyperkalemia: Resolved Monitor BMP Status: Acute (14) Seizure: Continue Keppra 750 mg PO BID Continue Keppra 750 mg PO BID Status: Acute (15) Hyponatremia: Hypervolemic hyponatremia: Serum sodium is improvin Status: Acute (16) Thrombocytopenia: Chronic, follows with hematology Currently dropping platelt count ~50K Status: Acute Attestations Medical Necessity Statement*: hemodialysis today, planned for discharge in the upcoming 24-48hrs Coding Level of Care Code Acute 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 [facility] Fwd Diagnoses NSTEMI (non-ST elevated myocardial infarction) I21.4 Heart failure, chronic, with acute decompensation I50.9 Heart failure type: unspecified Anasarca R60.1 Hyperbilirubinemia E80.6 Anemia D64.9 Generalized weakness R53.1 Aortic stenosis I35.0 Cardiac valve disease etiology: nonrheumatic Liver, cirrhosis, portal K74.69 Hepatic encephalopathy K72.90 RAÚL (acute kidney injury) N17.9 UTI (urinary tract infection) N39.0 Atrial fibrillation I48.20 Atrial fibrillation type: unspecified chronic Hyperkalemia E87.5 Seizure R56.9 Hyponatremia E87.1 Thrombocytopenia D69.6
[2020-11-19] VITALS (11 sets, daily range): BP systolic 90–119; BP diastolic 48–57; PULSE 62–75; RESP 17–26; TEMP 36.6–36.8; O2SAT 90–97
[2020-11-19] MEDS: ipratropium-albuterol 3 mL Neb INHALATION ×3 (00:38→07:23)
[2020-11-19 05:24] LABS: Basophils # 0.1 10^3/uL (0.0-0.1); Basophils % 0.5 %; Eosinophils # 0.2 10^3/uL (0.0-0.8); Eosinophils % 2.5 %; Hematocrit 27.1 % (42.0-52.0); Hemoglobin 8.9 g/dL (11.7-16.6); Lymphocytes # 1.4 10^3/uL (0.8-4.8); Lymphocytes % 15.4 %; Mean Corpuscular HGB Conc 32.8 g/dL (30.0-36.0); Mean Corpuscular Volume 100.4 fL (80-94); Mean Platelet Volume 11.6 fL (7.4-10.4); Monocytes # 1.7 10^3/uL (0.2-0.9); Monocytes % 18.2 %; Neutrophils # 5.75 10^3/uL (1.8-7.7); Neutrophils % 62.4 %; Nucleated Red Blood Cells % 0 %; Platelet Count 49 10^3/cmm (130-400); Red Cell Distribution Width 17.9 % (12.1-15.1); White Blood Count 9.2 10^3/uL (4.0-10.0)
[2020-11-19 05:40] LABS: Alanine Aminotransferase 49 U/L (0-41); Alkaline Phosphatase 96 IU/L (40-130); Aspartate Amino Transferase 162 U/L (0-40); Blood Urea Nitrogen 53 mg/dL (8-23); Calcium 7.7 mg/dL (8.5-10.5); Carbon Dioxide 28 mmol/L (22-29); Chloride 97 mmol/L (98-107); Globulin 1.7 g/dL (1.3-4.6); Glucose 102 mg/dL (65-115); Osmolality Calculated 295 mOsm/kg (285-295); Sodium 135 mmol/L (136-145); Total Protein 4.7 g/dL (6.6-8.7)
[2020-11-19] MEDS: midodrine 5 mg TABLET 10 MG PO (07:45)
[2020-11-19] MEDS: levETIRAcetam 500 mg Tablet 750 MG PO (07:45)
[2020-11-19] MEDS: pantoprazole DR 40 mg Tablet PO (07:46)
[2020-11-19] MEDS: folic acid 1 mg Tablet PO (07:46)
[2020-11-19] MEDS: lactulose oral liq 20 gm/30 mL UDC 45 GM PO (07:46)
--- NOTE | 2020-11-19 08:29 | PM.PN ---
Subjective Subjective: Interval history: feels better. dec edema and sob. no n/v/f/c/cortes/ d Medications: Reviewed: Yes Medication Review Details: Current Medications Acetaminophen (Acetaminophen 325 Mg Tablet) 650 mg PO Q6H PRN PRN Reason: MILD PAIN Last Admin: 11/05/20 14:38 Dose: 650 mg Documented by: Albuterol/Ipratropium (Ipratropium-Albuterol 3 Ml Neb) 3 ml INHALATION Q4H.RESPIRATORY [facility] Last Admin: 11/19/20 07:23 Dose: 3 ml Documented by: Atorvastatin Calcium (Atorvastatin 40 Mg Tablet) 20 mg PO DAILY@17 [facility] Last Admin: 11/16/20 18:17 Dose: Not Given Documented by: Cyclobenzaprine HCl (Cyclobenzaprine 10 Mg Tablet) 5 mg PO BID PRN PRN Reason: MUSCLE CRAMPS Last Admin: 11/08/20 21:33 Dose: 5 mg Documented by: Folic Acid (Folic Acid 1 Mg Tablet) 1 mg PO DAILY@08 [facility] Last Admin: 11/19/20 07:46 Dose: 1 mg Documented by: Guaifenesin (Guaifenesin 100 Mg/5 Ml Udc 10 Ml) 200 mg PO Q4H PRN PRN Reason: COUGH Last Admin: 11/09/20 01:51 Dose: 200 mg Documented by: Guaifenesin/Dextromethorphan (Guaifenesin-Dextromethorphan Udc 10 Ml) 5 ml PO Q4H PRN PRN Reason: COUGH Last Admin: 11/10/20 08:29 Dose: 5 ml Documented by: Albumin Human (Albumin) 12.5 gm in 50 mls @ 60 mls/hr IV PRN PRN PRN Reason: NEEDED FOR DIALYSIS Lactulose (Lactulose Oral Liq 20 Gm/30 Ml Udc) 45 gm PO BID [facility] Last Admin: 11/19/20 07:46 Dose: 45 gm Documented by: Levetiracetam (Levetiracetam 500 Mg Tablet) 750 mg PO BID@08,17 [facility] Last Admin: 11/19/20 07:45 Dose: 750 mg Documented by: Metoprolol Tartrate (Metoprolol Tartrate 25 Mg Tablet) 12.5 mg PO BID@0900,2100 [facility] Last Admin: 11/17/20 14:32 Dose: Not Given Documented by: Midodrine (Midodrine 5 Mg Tablet) 10 mg PO TID [facility] Last Admin: 11/19/20 07:45 Dose: 10 mg Documented by: Nitroglycerin (Nitroglycerin 0.4 Mg Sublingual Tablet) 0.4 mg SUBLINGUAL Q5M PRN PRN Reason: CHEST PAIN Last Admin: 11/05/20 13:00 Dose: 1 cap Documented by: Ondansetron HCl (Ondansetron 2 Mg/Ml Sdv 2 Ml) 4 mg IVP Q6H PRN PRN Reason: NAUSEA AND VOMITING Last Admin: 11/05/20 20:50 Dose: 4 mg Documented by: Pantoprazole Sodium (Pantoprazole Dr 40 Mg Tablet) 40 mg PO DAILY [facility] Last Admin: 11/19/20 07:46 Dose: 40 mg Documented by: Rifaximin (Rifaximin 550 Mg Tablet) 550 mg PO BID@0800,1700 [facility]; Protocol Last Admin: 11/19/20 07:46 Dose: 550 mg Documented by: Fluticasone/Salmeterol (Fluticasone-Salmeterol 250-50 Diskus) 1 puff INHALATION BID.RESPIRATORY [facility] Last Admin: 11/19/20 07:24 Dose: 1 puff Documented by: Vitals/I&O/Wt Last Vital Signs Temp 97.8 F 11/19/20 07:33 Pulse 72 11/19/20 07:33 Resp 18 11/19/20 07:33 BP 94/48 11/19/20 07:33 Pulse Ox 90 11/19/20 07:33 11/18/20 11/19/20 11/19/20 22:59 06:59 14:59 Intake Total 120 / 240 120 / 360 Output Total 125 / 125 Balance 120 / 240 -5 / 235 Physical Exam Narrative: EXAM NARRATIVE: comfortable NARD bp on low side heent- nc/at, eomi, icteric neck- no jvp lung crackles dec heart irreg irreg, +ANG abd soft, nt, + ascites ext dec b/l edema neuro- a,a, o x 3 pulses + b/l skin no rash, + yellow/ jaundiced seen and examine dw/ RN Urinary Catheter Management^: Saravia: Cath Placed During This Visit: yes, but has since been removed by the nurse Reason for Continuing Indwelling Catheter: Decision to DC Catheter Urinary Catheter Date of Insertion: 11/04/20 Urinary Catheter Time of Insertion: 16:32 Date Urinary Catheter Removed: 11/10/20 Time Urinary Catheter Discontinued: 15:00 Data : 11/19/20 04:27 11/19/20 04:27 Micro: Microbiology 11/14/20 22:30 Urine Culture - Final Urine,Clean Catch Kristin albicans A&P Additional A&P Information 75 yr old man acute on chronic diastolic dysfunction, liver cirrhosis, NSTEMI, progressive renal failure RAÚL on CKD- Q ESRD- doing better w/ HD- repeat HD in am- as outpt or in house liver disease per medicine and GI cardiology appreciated anemia from liver disease and Renal failure thrombocytopenia from cirrhosis- no heparin w/ HD Attestations Medical Necessity Statement*: per medicine Time Spent in Patient Care: 16 - 35 minutes Coding Level of Care Code Acute Eligibility Consultant for [facility]
--- NOTE | 2020-11-19 10:56 | P.DS_ITS ---
Discharge Providers Date of Admission: 11/05/20 17:27 Date of Discharge: November 19, 2020 Attending Provider at Admission: Paul Moeller MD Attending Provider at Discharge: Jennifer Marmolejo Primary Care Provider: Jessica Moreira MD Diagnoses at Discharge Discharge Diagnosis (1) NSTEMI (non-ST elevated myocardial infarction): Status: Acute (2) Heart failure, chronic, with acute decompensation: Status: Acute Qualifiers: Heart failure type: unspecified Qualified Code(s): I50.9 - Heart failure, unspecified (3) Anasarca: Status: Acute (4) Hyperbilirubinemia: Status: Acute (5) Anemia: Status: Acute (6) Generalized weakness: Status: Acute (7) Aortic stenosis: Status: Acute Qualifiers: Cardiac valve disease etiology: nonrheumatic Qualified Code(s): I35.0 - Nonrheumatic aortic (valve) stenosis (8) Liver, cirrhosis, portal: Status: Acute (9) Hepatic encephalopathy: Status: Acute (10) RAÚL (acute kidney injury): Status: Acute (11) UTI (urinary tract infection): Status: Acute (12) Atrial fibrillation: Status: Acute Permanent problem details: On anticoagulation Qualifiers: Atrial fibrillation type: unspecified chronic Qualified Code(s): I48.20 - Chronic atrial fibrillation, unspecified (13) Hyperkalemia: Status: Acute (14) Seizure: Status: Acute (15) Hyponatremia: Status: Acute (16) Thrombocytopenia: Status: Acute Reason for Visit Reason for Visit: CP, BLE SWELLING, SENT BY [facility] Course Hospital Course 75-year-old male with a past medical history significant for dementia, seizure disorder, atrial fibrillation on Eliquis, moderate aortic stenosis, duodenal ulcer, autoimmune hemolytic anemia, 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 Patient had previously been on Lasix 40 mg twice daily and Aldactone. Laboratory workup on arrival showed a WBC of 11.5, hemoglobin 7.7, hematocrit 24.1 and a platelet count of 112. INR 2.20. D-dimer of 1.87. Sodium 122, potassium 4.7, chloride 92, bicarb 24, BUN 34 and creatinine of 1.1. AST of 76, ALT 59 and alkaline phosphatase at 93. Ammonia of 17. Troponin T 51 with a repeat increased to 51.07 and a 6 hour of 48.6. ProBNP was elevated at 1432. Chest x-ray showed mild pulmonary vascular congestion. Repeat chest x-ray on 11/11 showed patchy bilateral opacities representing diffuse pneumonia versus pulmonary vascular congestion and cardiomegaly. Patient was started on Bumex 2 mg IV b.i.d. Echocardiogram was performed which showed an EF of 70%, normal right ventricular size and systolic function with mild aortic valve stenosis. Patient admitted having progressively worsening edema 80 as well as renal dysfunction. Creatinine increased to 4.9. His suspected to have possible hepatic or renal physiology. Fractional excretion of urea per 17% consistent with prerenal. General surgery was consulted. Temporary dialysis catheter was placed and patient was initiated on dialysis. due to low pressures metoprolol was also held. He was started on midodrine which was continued at the time of discharge. In addition patient was noted to have worsening anemia for which she was transfused 4 units of PRBCs. Was briefly placed on octreotide drip. Aspirin and Eliquis were both held. Hemoglobin remained stable at the time of discharge. Addition was treated for Enterococcus faecalis urinary tract infection was Levaquin. He completed antibiotic treatment. However was felt to have a colonization. No fever, chills, nausea or vomting. Patient was stable to discharge with close outpatient follow up with PCP and cardiology. Arranged for HD on 11/20/20. Home care was also arranged. Physical Exam Narrative: EXAM NARRATIVE: EXAM NARRATIVE: GEN: Awake, alert and oriented, no acute distress, wanting to go home CVS: S1S2 N RS: CTA B/L except scattered crackles B/L Abd: Soft, nt/nd , bs+ [employer]OR [employer] DEVELOPMENT: no focal neuro deficits EXT: Bilateral gross anasarca, pitting edema Urinary Catheter Management^: [place]: Cath Placed During This Visit: yes, but has since been removed by the nurse Reason for Continuing Indwelling Catheter: Decision to DC Catheter Urinary Catheter Date of Insertion: 11/04/20 Urinary Catheter Time of Insertion: 16:32 Date Urinary Catheter Removed: 11/10/20 Time Urinary Catheter Discontinued: 15:00 Discharge Data Data Completed and Pending: Completed Studies During Hospitalization Category Date Time Status CXRP [XR chest 1V portable [id number]] R outine Exams 11/11/20 16:37 Completed XR chest 1V lee ble [id number] Routine Exams 11/06/20 08:13 Completed XR chest 1V lee ble [id number] Routine Exams 11/18/20 10:12 Completed XR chest 1V lee ble [id number] Stat Exams 11/03/20 15:16 Completed CV echo wo/w cont rast [id number] Routine Ultrasound 11/05/20 13:31 Completed Pending at discharge Category Date Time Status ABO/Rh Type Routi ne Lab 11/15/20 11:04 Results Complete Crossmat ch Routine Lab 11/15/20 11:04 Results Comprehensive Met abolic Panel AM LA BS Lab 11/20/20 04:00 Ordered Comprehensive Met abolic Panel AM LA BS Lab 11/21/20 04:00 Ordered Comprehensive Met abolic Panel AM LA BS Lab 11/22/20 04:00 Ordered Frozen Plasma FZ <24 1st Cont Routi ne Lab 11/15/20 11:04 Results Magnesium AM LABS Lab 11/20/20 04:00 Ordered Magnesium AM LABS Lab 11/21/20 04:00 Ordered Magnesium AM LABS Lab 11/22/20 04:00 Ordered Phosphorus AM LAB S Lab 11/20/20 04:00 Ordered Phosphorus AM LAB S Lab 11/21/20 04:00 Ordered Phosphorus AM LAB S Lab 11/22/20 04:00 Ordered Platelets Leuko-R educed Routine Lab 11/15/20 11:04 Results Thyroid Stimulati ng Hormone AM LABS Lab 11/20/20 04:00 Ordered Labs from last 24 hours 11/19/20 11/19/20 11/14/20 04:27 04:27 22:30 WBC 9.2 RBC 2.70 L Hgb 8.9 L Hct 27.1 L MCV 100.4 H MCH 33.0 MCHC 32.8 RDW 17.9 H Plt Count 49 L MPV 11.6 H Neut % (Auto) 62.4 Lymph % (Auto) 15.4 [place] % (Auto) 18.2 Eos % (Auto) 2.5 Baso % (Auto) 0.5 Neut # (Auto) 5.75 Lymph # (Auto) 1.4 [place] # (Auto) 1.7 H Eos # (Auto) 0.2 Baso # (Auto) 0.1 Nucleated RBC % (a uto) 0 Nucleated RBCs # 0.0 Sodium 135 L Potassium 4.0 Chloride 97 L Carbon Dioxide 28 Anion Gap 14.0 BUN 53 H Creatinine 4.0 H GFR Calculation Not Reportable Glucose 102 Calculated Osmolal ity 295 Calcium 7.7 L Total Bilirubin 8.0 H* AST 162 H ALT 49 H Alkaline Phosphata se 96 Total Protein 4.7 L Albumin 3.0 L Globulin 1.7 Urine Color Urine Appearance Urine pH Ur Specific Gravit y Urine Protein Urine Glucose (UA) Urine Ketones Urine Blood Urine Nitrate Urine Bilirubin Urine Urobilinogen Ur Leukocyte Marcie ase Urine RBC Urine WBC Ur Squamous Epith Cells Urine Bacteria Hyaline Casts Urine Yeast U Random Total Pro tein 29 Urine Creatinine 106 Protein/Creatinin Ratio 0.27 11/14/20 22:30 WBC RBC Hgb Hct MCV MCH MCHC RDW Plt Count MPV Neut % (Auto) Lymph % (Auto) [place] % (Auto) Eos % (Auto) Baso % (Auto) Neut # (Auto) Lymph # (Auto) [place] # (Auto) Eos # (Auto) Baso # (Auto) Nucleated RBC % (a uto) Nucleated RBCs # Sodium Potassium Chloride Carbon Dioxide Anion Gap BUN Creatinine GFR Calculation Glucose Calculated Osmolal ity Calcium Total Bilirubin AST ALT Alkaline Phosphata se Total Protein Albumin Globulin Urine Color Yellow Urine Appearance Sl hazy Urine pH 5 Ur Specific Gravit y 1.015 Urine Protein Neg Urine Glucose (UA) Norm Urine Ketones Negative Urine Blood 3+ H Urine Nitrate Negative Urine Bilirubin Neg Urine Urobilinogen Norm Ur Leukocyte Marcie ase 1+ H Urine RBC 40-50 H Urine WBC 15-25 H Ur Squamous Epith Cells 0-4 H Urine Bacteria 2+ H Hyaline Casts 55-80 H Urine Yeast 1+ H U Random Total Pro tein Urine Creatinine Protein/Creatinin Ratio Vitals: Last Vital Signs Temp 97.8 F 11/19/20 07:33 Pulse 72 11/19/20 07:33 Resp 18 11/19/20 07:33 BP 94/48 11/19/20 07:33 Pulse Ox 90 11/19/20 07:33 Discharge Plan Discharge Patient Disposition: Home Health Service Condition: Stable Prescriptions: New midodrine 5 mg Tablet 10 mg PO TID Qty: 90 RF: 0 Continued levetiracetam 750 mg tablet 750 mg PO BID@, RF: 0 pantoprazole 40 mg tablet,delayed release (DR/EC) 40 mg PO DAILY@08 RF: 0 pravastatin 20 mg tablet 10 mg PO DAILY@17 RF: 0 cyclobenzaprine 5 mg tablet 5 mg PO BID PRN (Reason: MUSCLE CRAMPS) RF: 0 folic acid 1 mg Tablet 1 mg PO DAILY@08 RF: 0 Symbicort 80-4.5 mcg/actuation Hfa Aerosol Inhaler 2 puff INHALATION BID RF: 0 Xifaxan 550 mg tablet 550 mg PO BID@0800,1700 RF: 0 Changed lactulose 10 gram/15 mL solution 45 ml PO BID Qty: 0 RF: 0 Discontinued Eliquis 5 mg tablet 2.5 mg PO BID@08,17 RF: 0 albuterol sulfate 90 mcg/actuation HFA aerosol inhaler 2 puff INHALATION Q6H PRN (Reason: Shortness Of Breath) RF: 0 potassium chloride 10 mEq tablet extended release 10 meq PO BID RF: 0 cholecalciferol (vitamin D3) [Vitamin D3] 25 mcg (1,000 unit) Tablet 3,000 unit PO DAILY@08 RF: 0 spironolactone 25 mg tablet 25 mg PO DAILY@08 RF: 0 Fish Oil Capsule 1,000 mg PO BID RF: 0 furosemide 40 mg tablet 40 mg PO BID@08,14 10 Days Qty: 0 RF: 0 prednisone 20 mg tablet See Taper mg PO DAILY Qty: 120 RF: 0 B cmplx 4-vit L1-O-rkasr-zinc 1,750-60-1-12.5 qkbs-qk-ax-mg tablet 1 tab PO DAILY Qty: 30 RF: 0 Discharge Orders: Discharge Order (Routine); Ordered 11/19/20 Ordered By: Jennifer Marmolejo Referrals: [facility] [Other] (Your first dialysis appointment is set up for November 20 at 1:30 PM. After this it will be every Monday, Monday, and Monday. If you have any questions please call them at [phone].) [facility] [Outside] Jessica Moreira MD [Primary Care Provider] - Discharge Diet: Advance as tolerated Discharge Activity: Increase activity as tolerated Patient Instructions: Opioid Safety Activity Restrictions/Additional Instructions: HD on 11/20/20 Monitor daily weight Hold lactulose if having more than 2 BM per day Discharge Attestations Time Spent in Discharge Care*: greater than 30 min Specific Discharge Activities: educating patient, educating and/or supporting family/caregiver, discussing with pcp/other providers, discussing with manager of case management/social workers/dc planners, documenting/other paperwork and evaluating patient/reviewing data Status at Discharge: Cognitive status at discharge: cognitively intact , Behavioral status at discharge: cooperative , Quality Metrics Clinical Quality Measures During this hospital stay, did patient experience: None Coding Level of Care Code Acute Chg FW DC note Diagnoses NSTEMI (non-ST elevated myocardial infarction) I21.4 Heart failure, chronic, with acute decompensation I50.9 Heart failure type: unspecified Anasarca R60.1 Hyperbilirubinemia E80.6 Anemia D64.9 Generalized weakness R53.1 Aortic stenosis I35.0 Cardiac valve disease etiology: nonrheumatic Liver, cirrhosis, portal K74.69 Hepatic encephalopathy K72.90 RAÚL (acute kidney injury) N17.9 UTI (urinary tract infection) N39.0 Atrial fibrillation I48.20 Atrial fibrillation type: unspecified chronic Hyperkalemia E87.5 Seizure R56.9 Hyponatremia E87.1 Thrombocytopenia D69.6
--- NOTE | 2020-11-19 14:18 | PC.NURSE ---
pt education provided to self and spouse. no questions or concerns. patient VS stable upon departure. nurse and aid assisted patient into vehicle. patient left with spouse.
== END 2020-11-19 12:30 | disposition home health service (06) | DRG 280 ==
LOC: ER 18:33 → MEDSURG 22:53 → CSU 11-05 06:53
PROVIDERS: Anesthesiology; Internal Medicine; Internal Medicine Nephrology; Student in an Organized Health Care Education/Training Program; Surgery; Admitting Provider Internal Medicine; Emergency Provider Emergency Medicine; PCP Family Medicine; Visit Provider Hospitalist
PROC: 0JH63XZ Insertion of Tunneled Vascular Access Device into Chest Subcutaneous Tissue and Fascia, Percutaneous Approach (ICD-10-PCS; principal; 2020-11-16 15:45)
DX: I13.0 Hypertensive heart and chronic kidney disease with heart failure and stage 1 through stage 4 chronic kidney disease, or unspecified chronic kidney disease (principal); I50.33 Acute on chronic diastolic (congestive) heart failure; I21.4 Non-ST elevation (NSTEMI) myocardial infarction; J18.9 Pneumonia, unspecified organism; K76.6 Portal hypertension; I48.20 Chronic atrial fibrillation, unspecified; D59.10 Autoimmune hemolytic anemia, unspecified; E87.1 Hypo-osmolality and hyponatremia; N17.9 Acute kidney failure, unspecified; N39.0 Urinary tract infection, site not specified; N18.9 Chronic kidney disease, unspecified; F03.90 Unspecified dementia, unspecified severity, without behavioral disturbance, psychotic disturbance, mood disturbance, and anxiety; K74.69 Other cirrhosis of liver; E83.111 Hemochromatosis due to repeated red blood cell transfusions; D69.6 Thrombocytopenia, unspecified; I08.2 Rheumatic disorders of both aortic and tricuspid valves; R79.1 Abnormal coagulation profile; E87.5 Hyperkalemia; I71.4 Abdominal aortic aneurysm, without rupture; N40.0 Benign prostatic hyperplasia without lower urinary tract symptoms; K57.90 Diverticulosis of intestine, part unspecified, without perforation or abscess without bleeding; K44.9 Diaphragmatic hernia without obstruction or gangrene; Z86.010 Personal history of colon polyps; E78.5 Hyperlipidemia, unspecified; K72.90 Hepatic failure, unspecified without coma; B95.2 Enterococcus as the cause of diseases classified elsewhere; R56.9 Unspecified convulsions; E80.6 Other disorders of bilirubin metabolism; Z87.440 Personal history of urinary (tract) infections; Z86.73 Personal history of transient ischemic attack (TIA), and cerebral infarction without residual deficits
CPT/HCPCS: 36415; 36430; 36600; 51702; 51798; 71045; 77001; 80048; 80051; 80053; 81001; 82140; 82248; 82274; 82330; 82550; 82570; 82805; 83010; 83605; 83615; 83735; 83880; 84156; 84300; 84443; 84484; 84550; 85018; 85025; 85378; 85610; 85730; 86850; 86900; 86920; 86927; 87040; 87077; 87086; 87106; 87186; 87340; 87426; 90935; 93005; 94640; 94660; 96372; 96374; 96375; 97110; 97116; 97161; 97166; 97530; 97535; 99285; C1750; C8929; C9113; G0378; J0690; J1644; J1940; J1956; J2354; J2405; J3430; J3480; J3490; J7050; P9016; P9017; P9047; Q0163; Q3014; Q9956

== ENCOUNTER 2020-11-21 06:57 | Emergency (ER) | payer OTHER, MEDICARE, SELFPAY ==
[2020-11-21 07:00] VITALS: BP 114/68; PULSE 71; RESP 18; O2SAT 93; BMI 34.2
--- NOTE | 2020-11-21 07:09 | W.ED.GENADLT ---
HPI - General Adult General: Chief complaint: General Medical Stated complaint: BLEEDING AROUND DIALYSIS PORT Time Seen by Provider: 11/21/20 07:03 History of Present Illness: HPI narrative: 75-year-old male with end-stage renal disease recently started on hemodialysis. We believe he received dialysis yesterday. This morning he was trying to get out of bed evidently rolled out of bed and his dialysis port has some bleeding from his port he denies striking his head he denies losing consciousness there is no active bleeding at the time he arrives here the bandage in place test blood soaked in it and there is some clotted blood. Onset (ago): minute(s) Location: chest (Bleeding no chest pain) Relieving factors: none Exacerbating factors: none Associated symptoms: Reports weakness; Deny chest pain, confusion, cough, diaphoresis, decreased appetite, dyspnea, fevers/chills, headache(s), malaise, nausea, rash, palpitations, seizures, short of breath, syncope or vomiting Treatments prior to arrival: none Review of Systems Const: Denies: malaise or diaphoresis ENMT: Denies: throat pain, ear or mastoid pain, nasal discharge or nasal congestion Card: Denies: chest pain, palpitations or syncope Resp: Denies: dyspnea GI: Denies: nausea or vomiting : Denies: flank pain, dysuria, urinary frequency or urinary urgency Skin/Breast: Denies: rash Neuro: Denies: headache(s) or confusion PFS ED PFSH: Medical History AAA (abdominal aortic aneurysm) 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 Atrial fibrillation On anticoagulation BPH (benign prostatic hyperplasia) Carotid artery stenosis Diverticulosis Duodenal ulcer Gastritis Hemochromatosis Hiatal hernia History of colon polyps Follow-up colonoscopy in 2023 HTN (hypertension) Hyperlipidemia Internal hemorrhoids Liver, cirrhosis, portal Portal hypertension Status post placement of implantable loop recorder TIA (transient ischemic attack) Surgical History History of cystoscopy History of esophagogastroduodenoscopy (EGD) History of vasectomy S/P discectomy S/P ORIF (open reduction internal fixation) fracture RIGHT HIP Status post colonoscopy with polypectomy Family History Mother Stroke Brother [id number] deficiency Denies family history of Anesthesia complication Bleeding disorder Social History Smoking and tobacco status: never smoked Alcohol intake: never Household members: spouse Marital status: Current occupational status: retired Physical Exam Const: COMMON NORMALS: no acute distress GENERAL APPEARANCE: cooperative and comfortable ORIENTATION/CONSCIOUSNESS: Yes awake, Yes oriented to person, Yes oriented to place and Yes oriented to time HENMT: COMMON NORMALS: normocephalic, atraumatic, hearing grossly normal bilaterally and external ears normal HEAD & SCALP: normocephalic and atraumatic EXTERNAL EAR: Yes external ears normal Neck/C-Spine: COMMON NORMALS: no JVD Resp: COMMON NORMALS: normal respiratory effort, No retractions, No use of accessory muscles and clear to auscultation bilaterally AUSCULTATION: clear to auscultation bilaterally Cardio: COMMON NORMALS: no JVD, regular rate, regular rhythm and No murmurs present (Cardio) RATE: regular rate RHYTHM: regular rhythm GI: COMMON NORMALS: Soft to palpation and No hepatosplenomegaly present AUSCULTATION: Yes normoactive bowel sounds PALPATION: Yes Soft to palpation, No Tenderness to palpation present (GI), No Guarding due to palpation present (GI) and Yes No hepatosplenomegaly present Extremity: COMMON NORMALS: normal to inspection, capillary refill normal, no clubbing, cyanosis or edema, no calf tenderness and no pedal edema Neuro: SENSORIUM/ORIENTATION: Yes oriented to person, Yes oriented to place and Yes oriented to time Skin: COMMON NORMALS: no rashes or lesions noted GENERAL SKIN EXAM: no rashes or lesions noted Course Vital Signs: Vital signs: Vital Signs Pulse Rate 73 11/21/20 07:30 Respiratory Rate 17 11/21/20 07:30 Blood Pressure 110/58 11/21/20 07:30 Pulse Oximetry 94 11/21/20 07:30 MDM - General Adult MDM Narrative: Medical decision making narrative: No active bleeding since arrival. His hemoglobin is actually improved from his previous baseline. He did receive dialysis yesterday. His INR is high he was on Eliquis but they stopped that. He still at 247. Confirmed with his has not been taking any Coumadin. Recommend that he have his hemoglobin and his INR rechecked on his next dialysis day in 2 days. Return if has further problems. Lab Data: Labs: Lab Results 11/21/20 11/21/20 11/21/20 Range/Units 07:15 07:15 07:15 WBC 8.5 (4.0-10.0) 10^3/ uL RBC 2.94 L (4.1-5.3) 10^6/u L Hgb 9.7 L (11.7-16.6) g/dL Hct 28.8 L (42.0-52.0) % MCV 98.0 H (80-94) fL MCH 33.0 (28.0-34.0) pg MCHC 33.7 (30.0-36.0) g/dL RDW 18.6 H (12.1-15.1) % Plt Count 53 L (130-400) 10^3/c mm MPV 10.6 H (7.4-10.4) fL Neut % (Auto) 59.2 % Lymph % (Auto) 16.1 % [place] % (Auto) 19.8 % Eos % (Auto) 2.7 % Baso % (Auto) 0.5 % Neut # (Auto) 5.01 (1.8-7.7) 10^3/u L Lymph # (Auto) 1.4 (0.8-4.8) 10^3/u L [place] # (Auto) 1.7 H (0.2-0.9) 10^3/u L Eos # (Auto) 0.2 (0.0-0.8) 10^3/u L Baso # (Auto) 0.0 (0.0-0.1) 10^3/u L Nucleated RBC % (a uto) 0 % Nucleated RBCs # 0.0 /100WBC PT 27.20 H (12.1-14.9) SECO NDS INR 2.47 H (0.8-1.2) APTT 56.5 H (23.9-36.7) SECO NDS Sodium 135 L (136-145) mmol/L Potassium 3.6 (3.5-5.1) mmol/L Chloride 97 L (98-107) mmol/L Carbon Dioxide 28 (22-29) mmol/L Anion Gap 13.6 (5-19) BUN 47 H (8-23) mg/dL Creatinine 4.3 H (0.7-1.2) mg/dL GFR Calculation Not Reportable Glucose 111 (65-115) mg/dL Calculated Osmolal ity 293 (285-295) mOsm/k g Calcium 8.0 L (8.5-10.5) mg/dL Discharge Plan Discharge Patient Disposition: Home Clinical Impression: Fall, Hemorrhage from dialysis catheter Condition: Stable Prescriptions: No Action levetiracetam 750 mg tablet 750 mg PO BID@08,17 RF: 0 pantoprazole 40 mg tablet,delayed release (DR/EC) 40 mg PO DAILY@08 RF: 0 pravastatin 20 mg tablet 10 mg PO DAILY@17 RF: 0 cyclobenzaprine 5 mg tablet 5 mg PO BID PRN (Reason: MUSCLE CRAMPS) RF: 0 folic acid 1 mg Tablet 1 mg PO DAILY@08 RF: 0 Symbicort 80-4.5 mcg/actuation Hfa Aerosol Inhaler 2 puff INHALATION BID RF: 0 midodrine 5 mg Tablet 10 mg PO TID Qty: 90 RF: 0 lactulose 10 gram/15 mL solution 45 ml PO BID Qty: 0 RF: 0 Xifaxan 550 mg tablet 550 mg PO BID@0800,1700 RF: 0 Discharge Orders: Discharge ED (Routine); Ordered 11/21/20 Ordered By: Joseluis Lucas Referrals: Jessica Moreira MD [Primary Care Provider] - Discharge Diet: Usual diet Discharge Activity: Resume usual activity Patient Instructions: Opioid Safety Activity Restrictions/Additional Instructions: Follow-up with hemoglobin and INR in 2 days at your next dialysis. Coding Level of Care Code ED Fish Agent for Chg Fwd Exam Comprehensive
[2020-11-21 07:26] LABS: Basophils % 0.5 %; Eosinophils # 0.2 10^3/uL (0.0-0.8); Eosinophils % 2.7 %; Hematocrit 28.8 % (42.0-52.0); Hemoglobin 9.7 g/dL (11.7-16.6); Lymphocytes # 1.4 10^3/uL (0.8-4.8); Lymphocytes % 16.1 %; Mean Corpuscular HGB Conc 33.7 g/dL (30.0-36.0); Mean Platelet Volume 10.6 fL (7.4-10.4); Monocytes # 1.7 10^3/uL (0.2-0.9); Monocytes % 19.8 %; Neutrophils # 5.01 10^3/uL (1.8-7.7); Neutrophils % 59.2 %; Nucleated Red Blood Cells % 0 %; Platelet Count 53 10^3/cmm (130-400); Red Blood Count 2.94 10^6/uL (4.1-5.3); Red Cell Distribution Width 18.6 % (12.1-15.1); White Blood Count 8.5 10^3/uL (4.0-10.0)
[2020-11-21 07:30] VITALS: BP 110/58; PULSE 73; RESP 17; O2SAT 94
--- NOTE | 2020-11-21 07:34 | PC.NURSE ---
Changed central line dressing for HD catheter; used aseptic technique cleaned area with chg swab allowed to dry placed a gauze dressing with surg op tegaderm over site. pt tolerated well.
[2020-11-21 07:40] LABS: INR 2.47 (0.8-1.2)
[2020-11-21 07:41] LABS: Partial Thromboplastin Time 56.5 SECONDS (23.9-36.7)
[2020-11-21 07:45] LABS: Anion Gap 13.6 (5-19); Blood Urea Nitrogen 47 mg/dL (8-23); Carbon Dioxide 28 mmol/L (22-29); Chloride 97 mmol/L (98-107); Glucose 111 mg/dL (65-115); Osmolality Calculated 293 mOsm/kg (285-295); Potassium 3.6 mmol/L (3.5-5.1); Sodium 135 mmol/L (136-145)
== END 2020-11-21 08:31 | disposition home or self-care (01) ==
PROVIDERS: Emergency Provider Family Medicine; PCP Family Medicine
DX: T82.838A Hemorrhage due to vascular prosthetic devices, implants and grafts, initial encounter (principal); I48.91 Unspecified atrial fibrillation; E72.3 Disorders of lysine and hydroxylysine metabolism; Z86.73 Personal history of transient ischemic attack (TIA), and cerebral infarction without residual deficits; I12.0 Hypertensive chronic kidney disease with stage 5 chronic kidney disease or end stage renal disease; N18.6 End stage renal disease; Z99.2 Dependence on renal dialysis
CPT/HCPCS: 80048; 85025; 85610; 85730; 99282

== ENCOUNTER 2020-11-23 22:24 | Inpatient (IN) | payer OTHER, MEDICARE, SELFPAY ==
[2020-11-23 22:24] VITALS: BP 109/64; PULSE 90; RESP 18; TEMP 36.6; O2SAT 95; BMI 34.0
--- NOTE | 2020-11-23 22:33 | W.ED.GENADLT ---
HPI - General Adult General: Chief complaint: General Medical Stated complaint: PORT ISSUES Time Seen by Provider: 11/23/20 22:29 History of Present Illness: HPI narrative: This patient is a 75-year-old male who presents to the emergency department bleeding around his Alberto catheter in the right chest. Patient has this catheter in place due to dialysis. Patient was seen a couple days ago for the same bleeding around the catheter site. Catheter appears to be intact. Nursing staff will change dressings and apply pressure to the area. We will get baseline labs evaluate treat further as needed. Associated symptoms: Deny chest pain, dyspnea, headache(s), nausea, rash, palpitations or vomiting Review of Systems General: Reports: 10 or more systems reviewed and unremarkable except in HPI and below Const: Denies: fever(s), chills, body aches or fatigue Eyes: Denies: change in vision or blurry vision ENMT: Denies: throat pain, hoarseness or mouth pain Card: Reports: other (Bleeding at Alberto cath site. Right chest); Denies: chest pain, palpitations, irregular heart rhythm, edema, swelling of feet/ankles or lightheadedness Resp: Denies: dyspnea, productive cough, non-productive cough, wheezing or pain on inspiration GI: Denies: abdominal pain, nausea or vomiting : Denies: flank pain, dysuria, urinary frequency, urinary urgency or urinary hesitancy Musc: Denies: neck pain, back pain, extremity pain, extremity swelling, joint pain, joint swelling, joint redness, joint warmth or limited range of motion Skin/Breast: Denies: rash, pruritus, erythema or skin tenderness Neuro: Denies: headache(s), numbness in extremities or weakness in extremities Psych: Denies: anxiety or depression PFS ED PFSH: Medical History AAA (abdominal aortic aneurysm) 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 Atrial fibrillation On anticoagulation BPH (benign prostatic hyperplasia) Carotid artery stenosis Diverticulosis Duodenal ulcer Gastritis Hemochromatosis Hiatal hernia History of colon polyps Follow-up colonoscopy in 2023 HTN (hypertension) Hyperlipidemia Internal hemorrhoids Liver, cirrhosis, portal Portal hypertension Status post placement of implantable loop recorder TIA (transient ischemic attack) Surgical History History of cystoscopy History of esophagogastroduodenoscopy (EGD) History of vasectomy S/P discectomy S/P ORIF (open reduction internal fixation) fracture RIGHT HIP Status post colonoscopy with polypectomy Family History Mother Stroke Brother Vlavi-[id number] deficiency Denies family history of Anesthesia complication Bleeding disorder Social History Smoking and tobacco status: never smoked Alcohol intake: never Household members: spouse Marital status: Current occupational status: retired Physical Exam Const: COMMON NORMALS: no acute distress, average body habitus, patient oriented x3, no limitations, healthy appearing, alert and well nourished HENMT: COMMON NORMALS: normocephalic, atraumatic, hearing grossly normal bilaterally, external ears normal, EAC's normal, TM's normal bilaterally, Normal external nose present, Normal nasal mucous membranes and turbinates present, moist oral mucous membranes, oropharynx normal, dentition normal and gingiva normal HEAD & SCALP: normocephalic and atraumatic NOSE: Normal external nose present and Normal nasal mucous membranes and turbinates present EXTERNAL EAR: Yes external ears normal EXTERNAL AUDITORY CANAL: EAC's normal TYMPANIC MEMBRANE: TM's normal bilaterally Neck/C-Spine: COMMON NORMALS: full ROM, no lymphadenopathy, supple, no meningeal signs, no JVD, Thyroid normal and No carotid bruits THYROID: Thyroid normal Chest: COMMONS NORMALS: normal inspection of the chest, normal palpation of entire chest wall, normal inspection of the breasts and normal palpation of the breasts Breast/axilla inspection: Yes normal inspection of the breasts BREAST/AXILLA PALPATION: Yes normal palpation of the breasts OTHER: Bleeding around the Alberto catheter right subclavian. Nursing staff applied a pressure dressing. Resp: COMMON NORMALS: normal respiratory effort, No retractions, No use of accessory muscles, clear to auscultation bilaterally and percussion normal AUSCULTATION: clear to auscultation bilaterally PERCUSSION: percussion normal Cardio: COMMON NORMALS: no JVD, regular rate, regular rhythm, S1 normal heart sound present, S2 normal heart sound present, No gallops present (Cardio), No clicks present (Cardio), No murmurs present (Cardio), No rub (Cardio) and Peripheral pulses 2+ throughout RATE: regular rate RHYTHM: regular rhythm HEART SOUNDS: S1 normal heart sound present and S2 normal heart sound present PERIPHERAL PULSES: Peripheral pulses 2+ throughout GI: COMMON NORMALS: Normal to inspection, nondistended, normoactive bowel sounds present, Soft to palpation, non-tender, No hepatosplenomegaly present, no masses and no bruits PALPATION: Yes Soft to palpation and Yes No hepatosplenomegaly present : COMMON NORMALS: Yes no CVA tenderness BLADDER/KIDNEY EXAM: Yes no CVA tenderness Back/Pelvis: COMMON NORMALS: no CVA tenderness, thoracic and lumbar spine normal to inspection, no thoracic nor lumbar tenderness, thoraco-lumbar ROM normal and straight leg raise negative bilaterally Extremity: COMMON NORMALS: normal to inspection, full ROM, capillary refill normal, no joint enlargement, no clubbing, cyanosis or edema, no calf tenderness and no pedal edema Neuro: COMMON NORMALS: patient oriented x3 SENSORIUM/ORIENTATION: Yes alert MENINGEAL SIGNS: Yes no meningeal signs Course Reevaluation(s): Reevaluation #1: Bleeding stopped with pressure dressing. Laboratory evaluation with no significant change from previous evaluation chronic conditions appear to be stable. They have stopped the patient's Coumadin at previous hospital stay. Family understands will comply direct pressure bleeding recurs. Patient be discharged platelet count is improved from previous visit. Time: 23:42 Vital Signs: Vital signs: Vital Signs Temperature 97.9 F 11/23/20 22:24 Pulse Rate 90 11/23/20 22:24 Respiratory Rate 18 11/23/20 22:24 Blood Pressure 109/64 11/23/20 22:24 Pulse Oximetry 95 11/23/20 22:24 MDM - General Adult MDM Narrative: Medical decision making narrative: This patient is a 75-year-old male who presents to the emergency department bleeding around his Alberto catheter in the right chest. Patient has this catheter in place due to dialysis. Patient was seen a couple days ago for the same bleeding around the catheter site. Catheter appears to be intact. Nursing staff will change dressings and apply pressure to the area. Lab Data: Labs: Lab Results 11/23/20 11/23/20 11/23/20 Range/Units 22:45 22:45 22:45 WBC 6.8 (4.0-10.0) 10^3/ uL RBC 2.65 L (4.1-5.3) 10^6/u L Hgb 8.9 L (11.7-16.6) g/dL Hct 26.9 L (42.0-52.0) % MCV 101.5 H (80-94) fL MCH 33.6 (28.0-34.0) pg MCHC 33.1 (30.0-36.0) g/dL RDW 20.6 H (12.1-15.1) % Plt Count 63 L (130-400) 10^3/c mm MPV 10.5 H (7.4-10.4) fL Neut % (Auto) 62.6 % Lymph % (Auto) 14.4 % Bennett % (Auto) 20.5 % Eos % (Auto) 1.2 % Baso % (Auto) 0.6 % Neut # (Auto) 4.25 (1.8-7.7) 10^3/u L Lymph # (Auto) 1.0 (0.8-4.8) 10^3/u L Bennett # (Auto) 1.4 H (0.2-0.9) 10^3/u L Eos # (Auto) 0.1 (0.0-0.8) 10^3/u L Baso # (Auto) 0.0 (0.0-0.1) 10^3/u L Nucleated RBC % (a uto) 0 % Nucleated RBCs # 0.0 /100WBC PT 25.50 H (12.1-14.9) SECO NDS INR 2.27 H (0.8-1.2) APTT 48.7 H (23.9-36.7) SECO NDS Sodium 134 L (136-145) mmol/L Potassium 3.6 (3.5-5.1) mmol/L Chloride 97 L (98-107) mmol/L Carbon Dioxide 27 (22-29) mmol/L Anion Gap 13.6 (5-19) BUN 28 H (8-23) mg/dL Creatinine 3.1 H (0.7-1.2) mg/dL GFR Calculation Not Reportable Glucose 166 H (65-115) mg/dL Calculated Osmolal ity 287 (285-295) mOsm/k g Calcium 8.3 L (8.5-10.5) mg/dL Total Bilirubin 11.4 H* (0.15-1.2) mg/dL AST 100 H (0-40) U/L ALT 36 (0-41) U/L Alkaline Phosphata se 111 (40-130) IU/L Total Protein 5.1 L (6.6-8.7) g/dL Albumin 2.9 L (3.5-5.2) g/dL Globulin 2.2 (1.3-4.6) g/dL Discharge Plan Discharge Condition: Stable Prescriptions: No Action levetiracetam 750 mg tablet 750 mg PO BID@08,17 RF: 0 pantoprazole 40 mg tablet,delayed release (DR/EC) 40 mg PO DAILY@08 RF: 0 pravastatin 20 mg tablet 10 mg PO DAILY@17 RF: 0 cyclobenzaprine 5 mg tablet 5 mg PO BID PRN (Reason: MUSCLE CRAMPS) RF: 0 folic acid 1 mg Tablet 1 mg PO DAILY@08 RF: 0 Symbicort 80-4.5 mcg/actuation Hfa Aerosol Inhaler 2 puff INHALATION BID RF: 0 midodrine 5 mg Tablet 10 mg PO TID Qty: 90 RF: 0 lactulose 10 gram/15 mL solution 45 ml PO BID Qty: 0 RF: 0 Xifaxan 550 mg tablet 550 mg PO BID@0800,1700 RF: 0 Discharge Orders: Discharge ED (Routine); Ordered 11/23/20 Ordered By: Kev Elkins Referrals: Jessica Moreira MD [Primary Care Provider] - Discharge Diet: Advance as tolerated Discharge Activity: Increase activity as tolerated Activity Restrictions/Additional Instructions: Continue all home medications. Had bleeding recurs around dialysis catheter applied direct pressure and return to the emergency department. Follow-up with PCP in 2 to 3 days. Coding Level of Care Code ED Airfreight Loading Supervisor for Chg Fwd Exam Comprehensive
[2020-11-23 22:51] LABS: Basophils % 0.6 %; Eosinophils # 0.1 10^3/uL (0.0-0.8); Eosinophils % 1.2 %; Hematocrit 26.9 % (42.0-52.0); Hemoglobin 8.9 g/dL (11.7-16.6); Lymphocytes % 14.4 %; Mean Corpuscular HGB Conc 33.1 g/dL (30.0-36.0); Mean Corpuscular Hemoglobin 33.6 pg (28.0-34.0); Mean Corpuscular Volume 101.5 fL (80-94); Mean Platelet Volume 10.5 fL (7.4-10.4); Monocytes # 1.4 10^3/uL (0.2-0.9); Monocytes % 20.5 %; Neutrophils # 4.25 10^3/uL (1.8-7.7); Neutrophils % 62.6 %; Nucleated Red Blood Cells % 0 %; Platelet Count 63 10^3/cmm (130-400); Red Blood Count 2.65 10^6/uL (4.1-5.3); Red Cell Distribution Width 20.6 % (12.1-15.1); White Blood Count 6.8 10^3/uL (4.0-10.0)
[2020-11-23 23:01] LABS: INR 2.27 (0.8-1.2)
[2020-11-23 23:02] LABS: Partial Thromboplastin Time 48.7 SECONDS (23.9-36.7)
[2020-11-23 23:11] LABS: Alanine Aminotransferase 36 U/L (0-41); Albumin Level 2.9 g/dL (3.5-5.2); Alkaline Phosphatase 111 IU/L (40-130); Aspartate Amino Transferase 100 U/L (0-40); Blood Urea Nitrogen 28 mg/dL (8-23); Calcium 8.3 mg/dL (8.5-10.5); Carbon Dioxide 27 mmol/L (22-29); Chloride 97 mmol/L (98-107); Globulin 2.2 g/dL (1.3-4.6); Glucose 166 mg/dL (65-115); Osmolality Calculated 287 mOsm/kg (285-295); Sodium 134 mmol/L (136-145); Total Protein 5.1 g/dL (6.6-8.7)
[2020-11-23 23:15] LABS: Anion Gap 13.6 (5-19); Potassium 3.6 mmol/L (3.5-5.1); Total Bilirubin 11.4 mg/dL (0.15-1.2)
[2020-11-24] VITALS (17 sets, daily range): BP systolic 96–125; BP diastolic 51–82; PULSE 72–92; RESP 16–18; TEMP 36.5–36.9; O2SAT 93–97
[2020-11-24] MEDS: phytonadione (ADULT) 5 MG in sodium chloride 0.9% 50 ML 151.5 MG IV (01:33)
--- NOTE | 2020-11-24 03:15 | P.HP_ITS ---
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 Patient stated he has bleeding particularly after dialysis session which he had earlier prior to arrival. Upon arrival to ER his initial laboratory work up showed a CBC which showed 6.8>8.9/26.9<63 and a BMP 134/3.6/97/27/28/3.1<166. INR of >2. Pressure dressing was applied however continued to ooze. He was also given vit.K 5 mg po x 1 and LUE placed in sling. Admitted for observation. No fever, chills, nausea or vomiting. Review of Systems General: Reports: 10 or more systems reviewed and unremarkable except in HPI and below Medications/Allergies Home Medications Medication Instructions Recorded Confirmed Last Taken Type pantoprazole 40 mg tablet,delayed 40 mg PO DAILY@08 tab 06/17/19 11/03/20 11/03/20 08:30 History release levetiracetam 750 mg tablet 750 mg PO BID@08,06/18/19 11/03/20 11/03/20 08:30 History pravastatin 20 mg tablet 10 mg PO DAILY@17 tab 06/18/19 11/03/20 11/02/20 History folic acid 1 mg PO DAILY@08 12/31/19 11/03/20 11/03/20 08:30 History cyclobenzaprine 5 mg tablet 5 mg PO BID PRN tab 08/26/20 11/03/20 Unknown History Xifaxan 550 mg PO BID@0800,1700 10/21/20 11/03/20 11/03/20 08:30 History Symbicort 2 puff INHALATION BID 11/03/20 11/03/20 Unknown History lactulose 45 ml PO BID #0 ml 11/19/20 11/03/20 11/03/20 08:30 Rx midodrine 10 mg PO TID #90 tab 11/19/20 Unknown Rx Allergies Allergy/AdvReac Type Severity Reaction Status Date / Time No Known Allergies Allergy Verified 11/03/20 16:02 PFSH Acute PFSH: Medical History AAA (abdominal aortic aneurysm) Horyh-[id number] deficiency carrier Atrial fibrillation On anticoagulation BPH (benign prostatic hyperplasia) Carotid artery stenosis Diverticulosis Duodenal ulcer Gastritis Hemochromatosis Hiatal hernia History of colon polyps Follow-up colonoscopy in 2023 HTN (hypertension) Hyperlipidemia Internal hemorrhoids Liver, cirrhosis, portal Portal hypertension Status post placement of implantable loop recorder TIA (transient ischemic attack) Surgical History History of cystoscopy History of esophagogastroduodenoscopy (EGD) History of vasectomy S/P discectomy S/P ORIF (open reduction internal fixation) fracture RIGHT HIP Status post colonoscopy with polypectomy Family History Mother Stroke Brother Elhvo-1-[id number] deficiency Denies family history of Anesthesia complication Bleeding disorder Social History Smoking and tobacco status: never smoked Alcohol intake: never Household members: spouse Marital status: Current occupational status: retired Vitals/I&O/Wt Last Vital Signs Temp 98.2 F 11/24/20 02:34 Pulse 79 11/24/20 02:34 Resp 17 11/24/20 02:34 BP 118/66 11/24/20 02:34 Pulse Ox 97 11/24/20 02:34 11/23/20 11/23/20 11/24/20 14:59 22:59 06:59 Intake Total 50.5 / 50.5 Balance 50.5 / 50.5 Weight last 48 hrs Weight 117.027 kg Physical Exam Narrative: EXAM NARRATIVE: General : Alert, awake, oriented, NAD HEENT : Grossly unremarkable CVS : RRR Lungs: non-labored respiration Chest : pressure dressing placed over line insertion site by er Abd : NT, ND Ext : 3+ b/l LE edema Data : 11/23/20 22:45 11/23/20 22:45 A&P Assessment and plan (1) Bleeding at insertion site: Pressure dressing placed in ER at insertion site Improving Due to thrombocytopenia and coagulopathy of liver disease May ask surgery to assess - may consider additional purse lip suture at 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 May not improve bleeding given etiology of liver cirrhosis Status: Acute (3) Thrombocytopenia: Possibly due to liver disease transfuse if < 50K with persistnet bleeding Status: Acute (4) ESRD (end stage renal disease) on dialysis: Consult nephrology M/W/F schedule for HD Status: Acute (5) Liver cirrhosis: Status: Acute (6) Anemia: Due to acute blood loss, renal failure and autoimmune Transfuse if < 7.0 Recheck CBC in am Monitor h/h No anticoagulation Status: Acute Attestations Medical Necessity Statement*: Will require less than 2 midnight stay in hospital for eval and treatment Time Spent in Patient Care: Greater than 35 minutes (>than 50% of time spent in counselling and/or direct pt care on unit) . Coding Level of Care Code Acute Supervisor Correspondence Section for Pillo Edwards Diagnoses Bleeding at insertion site L76.82 Abnormal INR R79.1 Thrombocytopenia D69.6 ESRD (end stage renal disease) on dialysis N18.6; Z99.2 Liver cirrhosis K74.60 Anemia D64.9
--- NOTE | 2020-11-24 07:38 | PC.NURSE ---
patient bleeding at dialysis port and dressing changed twice since 714.
[2020-11-24] MEDS: levETIRAcetam 500 mg Tablet 750 MG PO ×2 (09:02→17:02)
[2020-11-24] MEDS: midodrine 5 mg TABLET 10 MG PO ×3 (09:03→21:07)
[2020-11-24] MEDS: pantoprazole DR 40 mg Tablet PO (09:03)
--- NOTE | 2020-11-24 09:14 | US_ITS ---
WS: [id number] ULTRASOUND ABDOMEN LIMITED CLINICAL INFORMATION: liver and gall bladder COMPARISON: None. FINDINGS: Small right pleural effusion. Liver Size: Normal. Craniocaudal length: 13.0 cm. Echogenicity: Dense and coarse Surface nodularity: Present Mass (size and location): None. Bile ducts Intrahepatic ducts: Normal. Common bile duct diameter: 0.2 cm. Gallbladder Normal. Gallstones: None. Gallbladder sludge: None. Gallbladder wall thickening: None. Pericholecystic fluid: None. Sonographic Alejandre sign: Absent. Pancreas Not well visualized due to bowel gas. Right kidney: Normal. Hydronephrosis: None. Size: 10.4 cm x 4.9 cm x 4.6 cm. Abdominal aortic aneurysm measuring 2.9 x 2.9 cm. Ascites: None. US/US abdomen limited 80157 IMPRESSION: 1. Heterogeneous coarse hepatic echotexture likely due to hepatocellular disea se. Cirrhotic contour to the liver. 2. Normal gallbladder. 3. No hydronephrosis in right kidney. 4. Small right pleural effusion. 5. Abdominal aortic aneurysm measuring 2.9 x 2.9 cm.
[2020-11-24 09:50] LABS: Basophils % 0.6 %; Eosinophils # 0.2 10^3/uL (0.0-0.8); Eosinophils % 2.1 %; Hematocrit 23.4 % (42.0-52.0); Hemoglobin 7.4 g/dL (11.7-16.6); Lymphocytes # 1.7 10^3/uL (0.8-4.8); Lymphocytes % 24.6 %; Mean Corpuscular HGB Conc 31.6 g/dL (30.0-36.0); Mean Corpuscular Volume 104.5 fL (80-94); Mean Platelet Volume 10.9 fL (7.4-10.4); Monocytes # 1.2 10^3/uL (0.2-0.9); Monocytes % 16.4 %; Neutrophils # 3.91 10^3/uL (1.8-7.7); Neutrophils % 55.5 %; Nucleated Red Blood Cells % 0 %; Platelet Count 59 10^3/cmm (130-400); Red Blood Count 2.24 10^6/uL (4.1-5.3); Red Cell Distribution Width 20.7 % (12.1-15.1); White Blood Count 7.1 10^3/uL (4.0-10.0)
[2020-11-24 09:56] LABS: INR 2.52 (0.8-1.2)
[2020-11-24 10:02] LABS: Alanine Aminotransferase 32 U/L (0-41); Albumin Level 2.5 g/dL (3.5-5.2); Alkaline Phosphatase 103 IU/L (40-130); Anion Gap 11.6 (5-19); Aspartate Amino Transferase 79 U/L (0-40); Blood Urea Nitrogen 38 mg/dL (8-23); Calcium 7.7 mg/dL (8.5-10.5); Carbon Dioxide 30 mmol/L (22-29); Chloride 98 mmol/L (98-107); Globulin 1.9 g/dL (1.3-4.6); Glucose 134 mg/dL (65-115); Osmolality Calculated 293 mOsm/kg (285-295); Phosphorus 4.1 mg/dL (2.5-4.5); Potassium 3.6 mmol/L (3.5-5.1); Sodium 136 mmol/L (136-145); Total Protein 4.4 g/dL (6.6-8.7)
[2020-11-24 10:09] LABS: Total Bilirubin 8.3 mg/dL (0.15-1.2)
--- NOTE | 2020-11-24 10:16 | PC.NURSE ---
notified Dr Quevedo that patient's total bilirubin is 8.3 today and yesterday it was 11.4.
--- NOTE | 2020-11-24 10:17 | PC.NURSE ---
applied dressing to dialysis port site. previous dressing was saturated with blood.
--- NOTE | 2020-11-24 10:48 | PC.CHAP ---
Pastoral Care Encounter/Spiritual Assessment Type of Contact [] Declined ip attorney visit [] Patient/Family/Request visit [] Outpatient visit [] Follow-up visit [] Physician referral [] Code/Alert [x] Routine visit [] Staff referral [] Actively dying [] Patient sleeping [] Family support [] [] Out of room [] Palliative care [] [] Receiving care in room [] Pre-surgical visit [] Trauma [] Long length of stay [] ICU visit [] Other: Relational/Emotional Strength [] Patient feels connected with others/family/visitors/staff [] Distress [] Loneliness/isolation [] Abandonment Spirituality of Patient [x] Person of Shahnaz [] Attends Orthodoxy of their Shahnaz [] Believes in Prayer [] Reads Bible or Alevism materials [] There are Spiritual issues to be addressed Internal Controls Consultant Interventions [x] Prayer [] Active listening [] Non-anxious presence [] Spiritual/emotional support [] Crisis/trauma care [] Spiritual counseling [] Bereavement support [] Provided bereavement packet [] Provided Bible/devotional materials [] Provided toy/stuffed animal, coloring book to patient or family member [] Provided Communion [] Anointing/[place] [] Salvation [x] Completed spiritual assessment [] Other: Impact on Illness or Injury [] Angry [] Fearful [] Anxious [] Often cries [] Exhaustion [] Unable to work [] Unable to attend sabianism [] Unable to walk/stand [] Unable to read [] Unable to drive [] Unable to eat/drink [] Unable to sleep [] Unable to be with family [] Patient intubated [] Other: Summary Time spent with patient
[2020-11-24 11:03] LABS: C Reactive Protein 11.9 mg/L (0.0-4.9); Lactic Sepsis W/Reflex 3.1 mmol/L (0.5-2.2)
[2020-11-24 11:09] LABS: Procalcitonin 0.23 ng/mL (0-0.5)
--- NOTE | 2020-11-24 11:23 | P.CONIM_ITS ---
Providers/Reason For Consult Consulting Physician/Specialty*: audi price md / telenephrology Reason for Consult*: ESRD care Attending Physician: Nadir Quevedo MD Primary Care Provider: Jessica Moreira MD History of Present Illness History of Present Illness Blayne Martinez is a 75 year old male with a past medical history significant for seizure disorder, moderate aortic stenosis, duodenal ulcer, autoimmune hemolytic anemia, liver cirrhosis- believed to be due to hereditary hemochromatosis and alpha-1- anti tripsin deficiency with subsequent portal hypertension, orthostatic hypotension, atrial fibrillation previously on Eliquis, chronic thrombocytopenia and coagulopathy of liver disease. Pt was recently hospitalized w/ volume overload, RAÚL- believed to be HRS +/- HRS. Pt did much betetr w/ dialysis. He was discharged on November 19, 2020. Since then he has been to the ER twice w/ bleeding from his permacath site. He is admitted now w/ anemia, bleed from permacath and rising bili. he also has a coagulopathy. Pressure dressing to permacath and per RN had to be changed at least 7 times. Pt was also given vit.K 5 mg po Review of Systems General: Reports: 10 or more systems reviewed and unremarkable except in HPI and below Narrative: weak, lethargic, itching, yellow, QUEZADA, nausea. bleeding. per pt bloody stools and hematuria. Meds/Allergies Home Medications and Allergies Home Medications Medication Instructions Recorded Confirmed Last Taken Type pantoprazole 40 mg tablet,delayed 40 mg PO DAILY@08 tab 06/17/19 11/03/20 11/03/20 08:30 History release levetiracetam 750 mg tablet 750 mg PO BID@08,06/18/19 11/03/20 11/03/20 08:30 History pravastatin 20 mg tablet 10 mg PO DAILY@17 tab 06/18/19 11/03/20 11/02/20 History folic acid 1 mg PO DAILY@08 12/31/19 11/03/20 11/03/20 08:30 History cyclobenzaprine 5 mg tablet 5 mg PO BID PRN tab 08/26/20 11/03/20 Unknown History Xifaxan 550 mg PO BID@0800,1700 10/21/20 11/03/20 11/03/20 08:30 History Symbicort 2 puff INHALATION BID 11/03/20 11/03/20 Unknown History lactulose 45 ml PO BID #0 ml 11/19/20 11/03/20 11/03/20 08:30 Rx midodrine 10 mg PO TID #90 tab 11/19/20 Unknown Rx Allergies Allergy/AdvReac Type Severity Reaction Status Date / Time No Known Allergies Allergy Verified 11/03/20 16:02 Current Medications Current Medications Generic Name Dose Route Start Last Admin Trade Name Sandy PRN Reason Stop Dose Admin Levetiracetam 750 mg 11/24/20 09:00 11/24/20 09:02 Levetiracetam 500 Mg Tablet PO 750 mg BID DAMIAN Administration Midodrine 10 mg 11/24/20 09:00 11/24/20 09:03 Midodrine 5 Mg Tablet PO 10 mg TID DAMIAN Administration Pantoprazole Sodium 40 mg 11/24/20 09:00 11/24/20 09:[address] 40 Mg Tablet PO 40 mg DAILY DAMIAN Administration Rifaximin 550 mg 11/24/20 09:00 11/24/20 09:03 Rifaximin 550 Mg Tablet PO 550 mg BID DAMIAN Administration Protocol Fluticasone/Salmeterol 1 puff 11/24/20 08:00 11/24/20 08:46 Fluticasone-Salmeterol 250-50 Diskus INHALATION 1 puff BID.RESPIRATORY DAMIAN Administration PFSH Acute PFSH: Medical History AAA (abdominal aortic aneurysm) Awung-7-[id number] deficiency carrier Atrial fibrillation On anticoagulation BPH (benign prostatic hyperplasia) Carotid artery stenosis Diverticulosis Duodenal ulcer Gastritis Hemochromatosis Hiatal hernia History of colon polyps Follow-up colonoscopy in 2023 HTN (hypertension) Hyperlipidemia Internal hemorrhoids Liver, cirrhosis, portal Portal hypertension Status post placement of implantable loop recorder TIA (transient ischemic attack) Surgical History History of cystoscopy History of esophagogastroduodenoscopy (EGD) History of vasectomy S/P discectomy S/P ORIF (open reduction internal fixation) fracture RIGHT HIP Status post colonoscopy with polypectomy Family History Mother Stroke Brother Tgrri-5-ivkrvocvnlf deficiency Denies family history of Anesthesia complication Bleeding disorder Social History Smoking and tobacco status: never smoked Alcohol intake: never Household members: spouse Marital status: Current occupational status: retired Vitals/I&O/Wt Last Vital Signs Temp 97.7 F 11/24/20 07:38 Pulse 78 11/24/20 08:50 Resp 17 11/24/20 08:47 BP 96/57 11/24/20 07:38 Pulse Ox 93 11/24/20 08:47 11/23/20 11/24/20 11/24/20 22:59 06:59 14:59 Intake Total 80.5 / 80.5 120 / 120 Balance 80.5 / 80.5 120 / 120 Weight last 48 hrs Weight 117.027 kg Physical Exam Narrative: EXAM NARRATIVE: obse in bed, NARD vs noted heent- nc/at, eomi, icteric neck supple lungs wheezes heart reg, +ANG abd soft, nt, bd ext b/l edema neuro- a,a, o x 2 skin icteric mood okay Data Micro: Micro: Microbiology 11/24/20 09:36 Blood Culture - Pr eliminary Blood SPECIMEN [facility] 11/24/20 09:12 Blood Culture - Pr eliminary Blood [facility] A&P Additional A&P Information 75 yr old man 1. liver failure- inc bili per medicine -thrombocytopenia and inc INR likely from liver failure 2. bleeding from permacath/ tuneled catheter- please have Dr. Michele see. if still bleeding consider FFP transfusion 3. anemia- monitor hgb- check b12 and folate -give epo -may need prbc tx 4. ESRD- recent start HD -plan on HD in am 5. monitor bp 6. renal osteodystrophy- monitor phos and pth 7. lactic acidosis- 3.1- from poor perfusion 8. agree w/ consideration of transfer to [place] for GI/ liver eval discussed w/ pt, RN, and hospitalist seen and examined w/ hospitalist- telehealth visit Consult Attestations Medical Necessity Statement: per medicine- ESRD, liver failure Time Spent in Patient Care: Greater than 35 minutes Coding Level of Care Code Acute Bar And Filler Assembler for Chg Grace
[2020-11-24 11:45] LABS: Gamma Glutamyl Transferase 27 U/L (8-61)
[2020-11-24 12:05] LABS: Erythrocyte Sedimentation Rate 9 mm/hr (0-10)
[2020-11-24 12:25] LABS: Reflex Lactate Order REFLEX LACTIC ORDERD
[2020-11-24 13:18] LABS: Folate Level 13.3 ng/mL (4.5-32.2); Vitamin B12 1302 pg/mL (232-1245)
[2020-11-24 13:23] LABS: Hepatitis C Virus Antibody Non-Reactive (Nonreactive)
[2020-11-24 13:50] LABS: Lactic Acid level (Lactate) 3.1 mmol/L (0.5-2.2)
--- NOTE | 2020-11-24 15:24 | P.PN_ITS ---
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 [place], the last time he saw him a few months ago, he has an appointment in the next week or so, he tells me that he has been getting frequent dialysis, for his generalized anasarca and edema, however he continues to have bilateral extreme edema, he tells me that he came to the hospital because after dialysis, he continued to bleed from the dialysis catheter site, he had profuse bleeding, so he was worried so he came to the emergency room, currently the bleeding has stopped, he has a pressure bandage on top of it Vitals/I&O/Wt Last Vital Signs Temp 97.8 F 11/24/20 11:34 Pulse 88 11/24/20 14:00 Resp 17 11/24/20 11:34 BP 102/51 11/24/20 11:34 Pulse Ox 95 11/24/20 11:34 11/24/20 11/24/20 11/24/20 06:59 14:59 22:59 Intake Total 80.5 / 80.5 120 / 120 Balance 80.5 / 80.5 120 / 120 Weight last 48 hrs Weight 117.027 kg Physical Exam Const: COMMON NORMALS: no acute distress and patient oriented x3 HENMT: COMMON NORMALS: normocephalic HEAD & SCALP: normocephalic Resp: COMMON NORMALS: normal respiratory effort, No retractions, No use of accessory muscles and clear to auscultation bilaterally AUSCULTATION: clear to auscultation bilaterally Cardio: COMMON NORMALS: regular rate, regular rhythm, S1 normal heart sound present and S2 normal heart sound present RATE: regular rate RHYTHM: regular rhythm HEART SOUNDS: S1 normal heart sound present and S2 normal heart sound present GI: COMMON NORMALS: Normal to inspection, nondistended, normoactive bowel sounds present, Soft to palpation and non-tender INSPECTION: Yes Anasarca and Yes abdominal distension PALPATION: Yes Soft to palpation Extremity: COMMON NORMALS: no pedal edema OTHER: 4+ pitting edema4+ Neuro: COMMON NORMALS: patient oriented x3 Psych: COMMON NORMALS: mental status grossly normal Data : 11/24/20 09:12 11/24/20 09:12 Micro: Microbiology 11/24/20 09:36 Blood Culture - Preliminary Blood SPECIMEN COLLECTED 11/24/20 09:12 Blood Culture - Preliminary Blood SPECIMEN COLLECTED A&P Assessment and plan (1) Bleeding at insertion site: Pressure dressing placed in ER at insertion site Improving Due to thrombocytopenia and coagulopathy of liver disease Have consulted Dr. Michele Monitor h/h Tx underlying coagulpathy Status: Acute (2) Abnormal INR: Due to liver disease Vit K given 5 mg May need to give additional INR/PT in am May also consider FFP. May not improve bleeding given etiology of liver cirrhosis Status: Acute (3) Thrombocytopenia: Possibly due to liver disease transfuse if < 50K with persistnet bleeding Status: Acute (4) ESRD (end stage renal disease) on dialysis: Consult nephrology , given anasarca, generalized anasarca, will need hemodialysis today M// schedule for HD Status: Acute (5) Liver cirrhosis: -Hemoglobin 7.4 -Platelet count 59,000 -INR 2.52 -Total bili 8.3, direct bili 3.5, higher than his normal, has scleral icterus -Albumin 2.5, total protein 4.4 -Hold off on IV hydration, will received HD -Unfortunately do not have GI, patient has a GI appointment in the next few weeks -Monitor bilirubin, if it continues to trend upwards currently going downwards, will consider transfer to [place] for hepatology, and possible consideration of liver transplant Status: Acute (6) Anemia: Due to acute blood loss, renal failure and autoimmune Transfuse if < 7.0 Recheck CBC in am Monitor h/h No anticoagulation Status: Acute (7) Hemorrhage from dialysis catheter: Will consult general surgery Status: Acute (8) Anemia: Status: Acute (9) Anasarca: Status: Acute (10) Hyperbilirubinemia: Will do right upper quadrant ultrasound, trend bilirubins, hold off on fluids, will receive HD Status: Acute (11) Leg swelling: Status: Acute Additional A&P Information Full code, DVT prophylaxis contraindicated given coagulopathy, continue SCDs Attestations Medical Necessity Statement*: Patient requires hospitalization hyperbilirubinemia, worsening of liver failure, generalized anasarca, peripheral edema, Coding Level of Care Code Acute Legal Investigator for [facility] Diagnoses Bleeding at insertion site L76.82 Abnormal INR R79.1 Thrombocytopenia D69.6 ESRD (end stage renal disease) on dialysis N18.6; Z99.2 Liver cirrhosis K74.60 Anemia D64.9 Hemorrhage from dialysis catheter T82.838A Anemia D64.9 Anasarca R60.1 Hyperbilirubinemia E80.6 Leg swelling M79.89
--- NOTE | 2020-11-24 18:35 | PC.NURSE ---
ultrasound done. diet reentered.
[2020-11-25] VITALS (13 sets, daily range): BP systolic 97–120; BP diastolic 58–75; PULSE 76–91; RESP 16–18; TEMP 36.6–37; O2SAT 94–97
[2020-11-25 05:40] LABS: Basophils # 0.1 10^3/uL (0.0-0.1); Basophils % 0.7 %; Eosinophils # 0.1 10^3/uL (0.0-0.8); Eosinophils % 1.1 %; Hematocrit 22.3 % (42.0-52.0); Hemoglobin 7.1 g/dL (11.7-16.6); Lymphocytes # 1.6 10^3/uL (0.8-4.8); Lymphocytes % 21.7 %; Mean Corpuscular HGB Conc 31.8 g/dL (30.0-36.0); Mean Corpuscular Hemoglobin 32.7 pg (28.0-34.0); Mean Corpuscular Volume 102.8 fL (80-94); Mean Platelet Volume 10.8 fL (7.4-10.4); Monocytes # 1.5 10^3/uL (0.2-0.9); Monocytes % 20.3 %; Neutrophils # 4.14 10^3/uL (1.8-7.7); Neutrophils % 55.5 %; Nucleated Red Blood Cells % 0.3 %; Platelet Count 68 10^3/cmm (130-400); Red Blood Count 2.17 10^6/uL (4.1-5.3); Red Cell Distribution Width 21.5 % (12.1-15.1); White Blood Count 7.5 10^3/uL (4.0-10.0)
[2020-11-25 05:50] LABS: INR 2.32 (0.8-1.2)
[2020-11-25 05:55] LABS: Lactate (Lactic Acid level) 2.4 mmol/L (0.5-2.2)
[2020-11-25 05:57] LABS: Ammonia 36 umol/L (16-60)
[2020-11-25 06:13] LABS: Calcium 7.7 mg/dL (8.5-10.5)
[2020-11-25 06:16] LABS: 25 Hydroxy Vitamin D 30 ng/mL (30-100); Alanine Aminotransferase 28 U/L (0-41); Albumin Level 2.4 g/dL (3.5-5.2); Alkaline Phosphatase 78 IU/L (40-130); Aspartate Amino Transferase 72 U/L (0-40); Blood Urea Nitrogen 47 mg/dL (8-23); Calcium 7.7 mg/dL (8.5-10.5); Carbon Dioxide 29 mmol/L (22-29); Chloride 97 mmol/L (98-107); Creatine Phosphokinase 26 U/L (39-308); Ferritin 271 ng/mL (30-400); Globulin 1.9 g/dL (1.3-4.6); Glucose 108 mg/dL (65-115); Iron 101 ug/dL (59-158); Magnesium 2.1 mg/dL (1.7-2.3); NT Pro B Type Natriuretic Pept 3309 pg/mL (0-125); Osmolality Calculated 291 mOsm/kg (285-295); Phosphorus 5.4 mg/dL (2.5-4.5); Sodium 134 mmol/L (136-145); Total Protein 4.3 g/dL (6.6-8.7)
[2020-11-25 06:20] LABS: Parathyroid Hormone 82.4 pg/mL (15-65)
[2020-11-25 06:29] LABS: Unsaturated Iron Binding < 17 ug/dL (112-347)
--- NOTE | 2020-11-25 07:54 | PM.PN ---
Subjective Subjective: Interval history: feels swollen, weak, edema, no longer bleeding. Medications: Reviewed: Yes Medication Review Details: Current Medications Acetaminophen (Acetaminophen 325 Mg Tablet) 650 mg PO Q6H PRN PRN Reason: Mild/Mod Pain Or Temp >/= 101 Levetiracetam (Levetiracetam 500 Mg Tablet) 750 mg PO BID [facility] Last Admin: 11/24/20 17:02 Dose: 750 mg Documented by: Midodrine (Midodrine 5 Mg Tablet) 10 mg PO TID DAMIAN Last Admin: 11/24/20 21:07 Dose: 10 mg Documented by: Ondansetron HCl (Ondansetron 2 Mg/Ml Sdv 2 Ml) 4 mg IVP Q8H PRN PRN Reason: vomiting, or N/V if npo Pantoprazole Sodium (Pantoprazole Dr 40 Mg Tablet) 40 mg PO DAILY [facility] Last Admin: 11/24/20 09:03 Dose: 40 mg Documented by: Rifaximin (Rifaximin 550 Mg Tablet) 550 mg PO BID [facility]; Protocol Last Admin: 11/24/20 17:02 Dose: 550 mg Documented by: Fluticasone/Salmeterol (Fluticasone-Salmeterol 250-50 Diskus) 1 puff INHALATION BID.RESPIRATORY [facility] Last Admin: 11/24/20 19:33 Dose: 1 puff Documented by: Vitals/I&O/Wt Last Vital Signs Temp 98.4 F 11/25/20 04:00 Pulse 78 11/25/20 06:00 Resp 16 11/25/20 04:00 BP 112/70 11/25/20 04:00 Pulse Ox 97 11/25/20 04:00 11/24/20 11/25/20 11/25/20 22:59 06:59 14:59 Intake Total 240 / 360 300 / 660 Output Total 200 / 200 0 / 200 150 / 150 Balance 40 / 160 300 / 460 -150 / -150 Weight last 48 hrs Weight 117.027 kg Physical Exam Narrative: EXAM NARRATIVE: obse in bed, NARD vs noted heent- nc/at, eomi, icteric neck supple lungs- clear b/l heart reg, +ANG abd soft, nt, +BS, distended ext b/l edema neuro- a,a, o x 2 skin icteric mood okay Data : 11/25/20 05:30 11/25/20 05:30 Micro: Microbiology 11/24/20 09:36 Blood Culture - Preliminary Blood SPECIMEN COLLECTED 11/24/20 09:12 Blood Culture - Preliminary Blood SPECIMEN COLLECTED A&P Additional A&P Information 75 yr old man 1. liver failure- inc bili per medicine -thrombocytopenia and inc INR likely from liver failure 2. bleeding from permacath/ tuneled catheter- has stgopped- hgb down to 7.1 3. anemia- monitor hgb- check b12 1302- high, normal folate 13.3 -give epo -may benefit from prbc tx 4. ESRD- recent start HD -plan on HD now- 3.5 hrs, 3k, remove 1.5l as tolerated 5. monitor bp 6. renal osteodystrophy- monitor phos 5.4- HD and binder -and pth- 82- no calcitriol vit d is 30 7. lactic acidosis- 3.1- from poor perfusion 8. - GI/ liver eval per medicine discussed w/ pt, RN seen and examined w/ hospitalist- telehealth visit Attestations Medical Necessity Statement*: per hospitalist Time Spent in Patient Care: 16 - 35 minutes Coding Level of Care Code Acute Billboard Installer for [facility]
[2020-11-25] MEDS: midodrine 5 mg TABLET 10 MG PO ×3 (09:22→21:51)
--- NOTE | 2020-11-25 10:53 | PC.CHAP ---
Pastoral Care Encounter/Spiritual Assessment Type of Contact [] Declined operation supervisor visit [] Patient/Family/Request visit [] Outpatient visit [] Follow-up visit [] Physician referral [] Code/Alert [x] Routine visit [] Staff referral [] Actively dying [] Patient sleeping [] Family support [] [] Out of room [] Palliative care [] [] Receiving care in room [] Pre-surgical visit [] Trauma [] Long length of stay [] ICU visit [] Other: Relational/Emotional Strength [x] Patient feels connected with others/family/visitors/staff [] Distress [] Loneliness/isolation [] Abandonment Spirituality of Patient [x] Person of Shahnaz [x] Attends Yarsani of their Shahnaz [x] Believes in Prayer [] Reads Bible or Caodaism materials [] There are Spiritual issues to be addressed Relief Man Interventions [x] Prayer [x] Active listening [] Non-anxious presence [] Spiritual/emotional support [] Crisis/trauma care [x] Spiritual counseling [] Bereavement support [] Provided bereavement packet [] Provided Bible/devotional materials [] Provided toy/stuffed animal, coloring book to patient or family member [] Provided Communion [] Anointing/[place] [] Salvation [x] Completed spiritual assessment [] Other: Impact on Illness or Injury [] Angry [] Fearful [] Anxious [] Often cries [] Exhaustion [] Unable to work [] Unable to attend amish [] Unable to walk/stand [] Unable to read [] Unable to drive [] Unable to eat/drink [] Unable to sleep [] Unable to be with family [] Patient intubated [] Other: Summary patient feeling better today Time spent with patient 10 min
[2020-11-25 11:16] LABS: Hepatitis B Surface AB 10.2 (11.5-1000); Hepatitis B Surface Antigen Non-Reactive (Nonreactive); Hepatitis C Virus Antibody Non-Reactive (Nonreactive)
--- NOTE | 2020-11-25 12:33 | P.PN_ITS ---
Subjective Subjective: Interval history: Patient was seen this afternoon, after his port adjustment, is at bedside, he has a pressure bandage over it, denies nausea, no headache, blurry vision, no nausea, no vomiting, Vitals/I&O/Wt Last Vital Signs Temp 98 F 11/25/20 08:00 Pulse 87 11/25/20 08:12 Resp 17 11/25/20 08:08 BP 120/75 11/25/20 08:00 Pulse Ox 96 11/25/20 08:08 11/24/20 11/25/20 11/25/20 22:59 06:59 14:59 Intake Total 240 / 360 300 / 660 120 / 120 Output Total 200 / 200 0 / 200 150 / 150 Balance 40 / 160 300 / 460 -30 / -30 Weight last 48 hrs Weight 117.027 kg Physical Exam Const: COMMON NORMALS: no acute distress and patient oriented x3 Eye: OTHER: sclaeral icterus Resp: COMMON NORMALS: normal respiratory effort, No retractions, No use of accessory muscles and clear to auscultation bilaterally AUSCULTATION: clear to auscultation bilaterally Cardio: COMMON NORMALS: regular rate, regular rhythm, S1 normal heart sound present and S2 normal heart sound present RATE: regular rate RHYTHM: regular rhythm HEART SOUNDS: S1 normal heart sound present and S2 normal heart sound present GI: COMMON NORMALS: Normal to inspection, nondistended, normoactive bowel sounds present, Soft to palpation and non-tender INSPECTION: Yes Anasarca and Yes abdominal distension PALPATION: Yes Soft to palpation Extremity: COMMON NORMALS: no pedal edema OTHER: 4+ pitting edema4+ Neuro: COMMON NORMALS: patient oriented x3 Psych: COMMON NORMALS: mental status grossly normal Data : 11/25/20 05:30 11/25/20 05:30 Micro: Microbiology 11/24/20 09:36 Blood Culture - Preliminary Blood NEGATIVE TO DATE 11/24/20 09:12 Blood Culture - Preliminary Blood NEGATIVE TO DATE A&P Assessment and plan (1) Bleeding at insertion site: Pressure dressing placed in ER at insertion site Due to thrombocytopenia and coagulopathy of liver disease Have consulted Dr. Michele Will have surgical intervention Monitor h/h Tx underlying coagulpathy Status: Acute (2) Abnormal INR: Due to liver disease Vit K given 5 mg May need to give additional INR/PT in am May also consider FFP. May not improve bleeding given etiology of liver cirrhosis Status: Acute (3) Thrombocytopenia: Possibly due to liver disease transfuse if < 50K with persistnet bleeding Status: Acute (4) ESRD (end stage renal disease) on dialysis: Likely hepatorenal syndrome, decompensated liver failure, consult nephrology , given anasarca, generalized anasarca, will need hemodialysis today M// schedule for HD Status: Acute (5) Liver cirrhosis: -Hemoglobin 7.1 -Platelet count 68,000 -INR 2.32 -Total bili 9.0, direct bili 3.5, higher than his normal, has scleral icterus -Albumin 2.5, total protein 4.4 -Hold off on IV hydration, will received HD -Unfortunately do not have GI, patient has a GI appointment in the next few weeks -Monitor bilirubin, if it continues to trend upwards currently going downwards, will consider transfer to [place] for hepatology, and possible consideration of liver transplant Status: Acute (6) Anemia: Due to acute blood loss, renal failure and autoimmune Transfuse if < 7.0 Recheck CBC in am Monitor h/h No anticoagulation Status: Acute (7) Hemorrhage from dialysis catheter: Will consult general surgery Status: Acute (8) Anasarca: Status: Acute (9) Hyperbilirubinemia: Will do right upper quadrant ultrasound, trend bilirubins, hold off on fluids, will receive HD Status: Acute (10) Leg swelling: Status: Acute Additional A&P Information Full code, DVT prophylaxis contraindicated given coagulopathy, continue SCDs Attestations Medical Necessity Statement*: Patient lowers hospitalization for hepatorenal syndrome, requiring dialysis, bleeding from port site Coding Level of Care Code Acute Case Technician for [facility] Fwd Exam Detailed Diagnoses Bleeding at insertion site L76.82 Abnormal INR R79.1 Thrombocytopenia D69.6 ESRD (end stage renal disease) on dialysis N18.6; Z99.2 Liver cirrhosis K74.60 Anemia D64.9 Hemorrhage from dialysis catheter T82.838A Anasarca R60.1 Hyperbilirubinemia E80.6 Leg swelling M79.89
--- NOTE | 2020-11-25 12:58 | PM.CONSULT ---
Providers/Reason For Consult Consulting Physician/Specialty*: General Surgery Dr. Michele Reason for Consult*: Bleeding around dialysis catheter site Attending Physician: Nadir Quevedo MD Primary Care Provider: Jessica Moreira MD History of Present Illness History of Present Illness Blayne Martinez is a 75 year old male with multiple comorbidities who had undergone placement of right IJ tunneled hemodialysis catheter on 11/16/2020. Patient was admitted to the hospital on 11/24/2020 due to bleeding around the catheter entry site. After the patient was admitted to the nursing staff on the floor placed new pressure dressings and subsequently the bleeding stopped. Patient is coagulopathic from a combination of hepatic and renal failure. Review of Systems General: Reports: 10 or more systems reviewed and unremarkable except in HPI and below Meds/Allergies Home Medications and Allergies Home Medications Medication Instructions Recorded Confirmed Last Taken Type pantoprazole 40 mg tablet,delayed 40 mg PO DAILY@08 tab 06/17/19 11/25/20 11/03/20 08:30 History release levetiracetam 750 mg tablet 750 mg PO BID 06/18/19 11/25/20 11/03/20 08:30 History pravastatin 20 mg tablet 10 mg PO DAILY@17 tab 06/18/19 11/25/20 11/02/20 History folic acid 1 mg PO DAILY@08 12/31/19 11/25/20 11/03/20 08:30 History Xifaxan 550 mg PO BID@0800,1700 10/21/20 11/25/20 11/03/20 08:30 History budesonide-formoterol [Symbicort] 2 puff INHALATION BID 11/03/20 11/25/20 Unknown History lactulose 45 ml PO BID #0 ml 11/19/20 11/25/20 11/03/20 08:30 Rx midodrine 10 mg PO TID #90 tab 11/19/20 11/25/20 Unknown Rx Allergies Allergy/AdvReac Type Severity Reaction Status Date / Time No Known Allergies Allergy Verified 11/25/20 15:47 Current Medications Current Medications Generic Name Dose Route Start Last Admin Trade Name Freq PRN Reason Stop Dose Admin Levetiracetam 750 mg 11/24/20 09:00 11/26/20 08:47 Levetiracetam 500 Mg Tablet PO 750 mg BID DAMIAN Administration Midodrine 10 mg 11/24/20 09:00 11/26/20 08:46 Midodrine 5 Mg Tablet PO 10 mg TID DAMIAN Administration Pantoprazole Sodium 40 mg 11/24/20 09:00 11/26/20 08:[address] 40 Mg Tablet PO 40 mg DAILY DAMIAN Administration Rifaximin 550 mg 11/24/20 09:00 11/26/20 08:47 Rifaximin 550 Mg Tablet PO 550 mg BID DAMIAN Administration Protocol Fluticasone/Salmeterol 1 puff 11/24/20 08:00 11/26/20 08:17 Fluticasone-Salmeterol 250-50 Diskus INHALATION 1 puff BID.RESPIRATORY DAMIAN Administration Sevelamer Carbonate 800 mg 11/25/20 09:00 11/26/20 08:46 Sevelamer 800 Mg Tablet PO 800 mg TID DAMIAN Administration PFSH Acute PFSH: Medical History AAA (abdominal aortic aneurysm) 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 Atrial fibrillation On anticoagulation BPH (benign prostatic hyperplasia) Carotid artery stenosis Diverticulosis Duodenal ulcer Gastritis Hemochromatosis Hiatal hernia History of colon polyps Follow-up colonoscopy in 2023 HTN (hypertension) Hyperlipidemia Internal hemorrhoids Liver, cirrhosis, portal Portal hypertension Status post placement of implantable loop recorder TIA (transient ischemic attack) Surgical History History of cystoscopy History of esophagogastroduodenoscopy (EGD) History of vasectomy S/P discectomy S/P ORIF (open reduction internal fixation) fracture RIGHT HIP Status post colonoscopy with polypectomy Family History Mother Stroke Brother [id number] deficiency Denies family history of Anesthesia complication Bleeding disorder Social History Smoking and tobacco status: never smoked Alcohol intake: never Household members: spouse Marital status: Current occupational status: retired Vitals/I&O/Wt Last Vital Signs Temp 98.3 F 11/26/20 11:36 Pulse 90 11/26/20 11:36 Resp 16 11/26/20 11:36 BP 112/72 11/26/20 11:36 Pulse Ox 98 11/26/20 11:36 11/25/20 11/26/20 11/26/20 22:59 06:59 14:59 Intake Total 460 / 580 Output Total 0 / 150 150 / 150 Balance 460 / 430 0 / 430 -150 / -150 Physical Exam Narrative: EXAM NARRATIVE: HEENT: Normocephalic Eye: Sclera /conjunctiva normal Chest: Right IJ tunneled hemodialysis catheter in place, ecchymosis around the cath entry site, no significant cellulitis or hematoma Abdomen: Soft to palpation Neurological: Oriented to place person and time Skin: Intact, no lesions appreciated on gross exam Data Micro: Micro: Microbiology 11/24/20 09:36 Blood Culture - Pr eliminary Blood NEGATIVE TO JANE E 11/24/20 09:12 Blood Culture - Pr eliminary Blood NEGATIVE TO JANE E A&P Assessment and plan (1) Bleeding at insertion site: 75-year-old male with hepatic and renal failure who presented with bleeding around the catheter entry site which was placed on 11/16/2020. The bleeding has now stopped and patient is currently in dialysis and the catheter is functioning well. At this point I would not recommend any other surgical intervention. Medical management as per hospitalist service, correct coagulopathy as needed. Status: Acute Consult Attestations Medical Necessity Statement: As per attending physician Coding Level of Care Code Acute Hematology Specialist for [facility] Diagnoses Bleeding at insertion site L76.82
[2020-11-25] MEDS: levETIRAcetam 500 mg Tablet 750 MG PO ×2 (13:02→17:40)
[2020-11-25] MEDS: pantoprazole DR 40 mg Tablet PO (13:03)
[2020-11-25] MEDS: sevelamer 800 mg Tablet PO ×2 (13:10→21:52)
[2020-11-25 13:33] LABS: Anti-Double Strand DNA AB <1 IU/mL; SS A Ro Sjogrens Antibody <1.0 NEG AI (<1.0 NEG); SS-B/LA IGG <1.0 NEG AI (<1.0 NEG)
[2020-11-25 14:42] LABS: Anti-Nuclear Antibody Screen NEGATIVE (NEGATIVE)
--- NOTE | 2020-11-25 15:48 | PC.PHAR ---
pts states she takes care of the pts medication-pts states the pt is taking levetiracetam 750mg bid pts [facility] as an med
[2020-11-26] VITALS (10 sets, daily range): BP systolic 106–116; BP diastolic 69–72; PULSE 82–94; RESP 16–20; TEMP 36.6–36.8; O2SAT 95–98
[2020-11-26 03:39] LABS: INR 2.19 (0.8-1.2)
[2020-11-26 03:46] LABS: Lactate (Lactic Acid level) 3.2 mmol/L (0.5-2.2)
[2020-11-26 03:50] LABS: Ammonia 30 umol/L (16-60)
[2020-11-26 03:56] LABS: Alanine Aminotransferase 29 U/L (0-41); Albumin Level 2.3 g/dL (3.5-5.2); Alkaline Phosphatase 88 IU/L (40-130); Anion Gap 13.4 (5-19); Aspartate Amino Transferase 69 U/L (0-40); Blood Urea Nitrogen 32 mg/dL (8-23); C Reactive Protein 11.8 mg/L (0.0-4.9); Calcium 7.9 mg/dL (8.5-10.5); Carbon Dioxide 27 mmol/L (22-29); Chloride 97 mmol/L (98-107); Creatine Phosphokinase 27 U/L (39-308); Globulin 2.2 g/dL (1.3-4.6); Glucose 104 mg/dL (65-115); NT Pro B Type Natriuretic Pept 2672 pg/mL (0-125); Osmolality Calculated 283 mOsm/kg (285-295); Phosphorus 4.5 mg/dL (2.5-4.5); Potassium 4.4 mmol/L (3.5-5.1); Sodium 133 mmol/L (136-145); Total Protein 4.5 g/dL (6.6-8.7)
[2020-11-26 03:58] LABS: Total Bilirubin 9.4 mg/dL (0.15-1.2)
--- NOTE | 2020-11-26 08:27 | P.PN_ITS ---
Subjective Subjective: Interval history: Bleeding from dialysis catheter has stopped. He is considering transfer to [place]. Outpatient dialysis is MWF. Medications: Reviewed: Yes Medication Review Details: on midodrine TID Vitals/I&O/Wt Last Vital Signs Temp 98.0 F 11/26/20 08:00 Pulse 82 11/26/20 08:17 Resp 20 H 11/26/20 08:17 BP 112/69 11/26/20 08:00 Pulse Ox 97 11/26/20 08:17 11/25/20 11/26/20 11/26/20 22:59 06:59 14:59 Intake Total 460 / 580 Output Total 0 / 150 Balance 460 / 430 0 / 430 Physical Exam Const: COMMON NORMALS: no acute distress GENERAL APPEARANCE: cooperative Eye: COMMON NORMALS: negative for no scleral icterus Neck/C-Spine: OTHER: tunneled right IJ dialysis catheter Cardio: OTHER: + edema Data : 11/25/20 05:30 11/26/20 03:00 Micro: Microbiology 11/24/20 09:36 Blood Culture - Preliminary Blood NEGATIVE TO DATE 11/24/20 09:12 Blood Culture - Preliminary Blood NEGATIVE TO DATE A&P Additional A&P Information 1. ESRD, usual HD MWF 2. Cirrhosis 3. Bleeding from dialysis catheter exit site - resolved 4. Anasarca 5. Anemia Recommend: HD today with transfusion 1u pRBC, 2L UF as BP tolerates. No hepar in. HD again tomorrow (as outpatient if discharged). Exam and interview performed with aid of bedside RN using telemedicine. Attestations Medical Necessity Statement*: per primary service Time Spent in Patient Care: 16 - 35 minutes Coding Level of Care Code Acute Computer Aided Design Technician for [facility]
[2020-11-26] MEDS: midodrine 5 mg TABLET 10 MG PO ×3 (08:46→21:47)
[2020-11-26] MEDS: sevelamer 800 mg Tablet PO ×3 (08:46→21:47)
[2020-11-26] MEDS: pantoprazole DR 40 mg Tablet PO (08:47)
[2020-11-26] MEDS: levETIRAcetam 500 mg Tablet 750 MG PO ×2 (08:47→17:39)
[2020-11-26 09:08] LABS: Add Urine Microscopic? YES; Bilirubin Urine 1+ (Negative); Blood Urine 3+ (Negative); Glucose Urine UA Norm (Normal); Ketones Urine Negative (Negative); Leukocyte Esterase Urine Negative (Negative); Nitrate Urine Negative (Negative); Protein Urine 1+ (Negative); Urine Appearance Cloudy (CLEAR); Urine Color Amber (Yellow); Urobilinogen Urine Norm (Negative); pH Urine 5 (5-7)
[2020-11-26 09:10] LABS: Bacteria Urine 2+ /hpf; Squamous Epithelial Cell Urine 0-4 /hpf (0-5)
[2020-11-26 09:11] LABS: Add Urine Culture? Yes; WBC Urine 0-4 /hpf (0-5)
--- NOTE | 2020-11-26 11:05 | PC.CHAP ---
Pastoral Care Encounter/Spiritual Assessment Type of Contact [] Declined emergency medicine physician assistant visit [] Patient/Family/Request visit [] Outpatient visit [] Follow-up visit [] Physician referral [] Code/Alert [x] Routine visit [] Staff referral [] Actively dying [] Patient sleeping [] Family support [] [] Out of room [] Palliative care [x] [x] Receiving care in room [] Pre-surgical visit [] Trauma [x] Long length of stay [] ICU visit [] Other: Relational/Emotional Strength [x] Patient feels connected with others/family/visitors/staff [x] Distress [] Loneliness/isolation [] Abandonment Spirituality of Patient [x] Person of Shahnaz [] Attends Mu-Ism of their Shahnaz [x] Believes in Prayer [] Reads Bible or Jew materials [] There are Spiritual issues to be addressed Research Food Technologist Interventions [x] Prayer [x] Active listening [x] Non-anxious presence [x] Spiritual/emotional support [] Crisis/trauma care [x] Spiritual counseling [] Bereavement support [] Provided bereavement packet [] Provided Bible/devotional materials [] Provided toy/stuffed animal, coloring book to patient or family member [] Provided Communion [] Anointing/[place] [] Salvation [x] Completed spiritual assessment [] Other: Impact on Illness or Injury [] Angry [] Fearful [x] Anxious [] Often cries [] Exhaustion [x] Unable to work [] Unable to attend anabaptist [] Unable to walk/stand [] Unable to read [] Unable to drive [] Unable to eat/drink [] Unable to sleep [] Unable to be with family [] Patient intubated [] Other: Summary the liver has shut down cood go to [facility] in [facility], will consult with and famiily about what to do or go home wait fvor out come Time spent with patient 10 mins
--- NOTE | 2020-11-26 14:43 | P.PN_ITS ---
Subjective Subjective: Interval history: Patient was seen this morning, he is jaundice, scleral icterus, morning bilirubin is 9.4, no repeat episodes of bleeding from his port site, no nausea, no vomiting, no fevers, no headache, blurry vision, no difficulty breathing, no episodes of confusion, is alert and oriented x3, I discussed options are available to the patient, including transfer to [facility] or a transplant facility for starting the process for transplant, or discharge home so he can [facility], or consider hospice, patient tells me that he wants to talk to his family This afternoon I had a family meeting with patient's , his sons, and extended family I advised patient's family that currently he is in decompensated liver failure, from iron overload, his INR is 2.19, his creatinine is 3.6, he is dialysis dependent his hepatorenal syndrome, his lactate 3.2, bili is 9.4, albumin is 2.3, total protein 4.5, BNP is 2672, he has all the indications for decompensated liver failure -I advised him that given his decompensated liver failure, currently he has a high risk of complications, high risk of morbidity and mortality, unfortunately not a education officer, we do not have a GI service here at [facility] [place], but generally in people who have decompensated liver failure the life expectancy is anywhere between 6 months to a year -Options had I raised the family was -Transfer to [facility], first this would not guarantee that the tr ansplant physician or team at [facility] would take him, they might even asked him to be discharged home so that they can follow-up with him as outpatient, but he was transferred today to [facility], they could start some of the transplant process, transplant evaluation, process, however this would not guarantee him a liver transplant, he would be likely placed on the transplant list. I was clear with family that he does have end-stage renal disease hepatorenal syndrome, history of A. fib, history of a duodenal ulcer,To my knowledge and according to his education officer, patient had an episode of GI bleed in December 2018, upper GI bleed, found to have a duodenal ulcer, this was the reason why he was not deemed a transplant candidate in the past. However in speaking with patient's GI physician, that he could always reassess his need for transplant, and see if he would be a candidate for transplant as an outpatient. His FibroScan in March 08, 2019 showed a CAP score of 297, moderate to severe steatosis, mean elastography to 2.3K PA. In addition hours clear with family that even if he is accepted at [facility], this does not guarantee him the liver, does not guarantee that they could take him right away, the process can take time and in some cases he could be transferred there, evaluated, and discharged home, and follow-up with them as outpatient -Second option I raised was to discharge him home, and to follow-up with his chief wellness officer as outpatient, and he could go through his chief wellness officer at the [place] to see if he could be deemed a transplant candidate, reportedly I am unaware of the specifics do the [place] -third option I discussed was hospice, hospice would emphasize comfort, he would not be deemed a transplant candidate if he was on hospice, would emphasize his quality of life -Patient's family would like to discuss with Blayne before making a decision, he is getting dialysis right now, Vitals/I&O/Wt Last Vital Signs Temp 98.3 F 11/26/20 11:36 Pulse 90 11/26/20 11:36 Resp 16 11/26/20 11:36 BP 112/72 11/26/20 11:36 Pulse Ox 98 11/26/20 11:36 11/25/20 11/26/20 11/26/20 22:59 06:59 14:59 Intake Total 460 / 580 Output Total 0 / 150 150 / 150 Balance 460 / 430 0 / 430 -150 / -150 Physical Exam Const: COMMON NORMALS: no acute distress and patient oriented x3 Eye: OTHER: Scleral icterus, jaundice Chest: OTHER: Port is in place, with pressure drainage Resp: COMMON NORMALS: normal respiratory effort, No retractions, No use of accessory muscles and clear to auscultation bilaterally AUSCULTATION: clear to auscultation bilaterally Cardio: COMMON NORMALS: regular rate, regular rhythm, S1 normal heart sound present and S2 normal heart sound present RATE: regular rate RHYTHM: regular rhythm HEART SOUNDS: S1 normal heart sound present and S2 normal heart sound present GI: COMMON NORMALS: Normal to inspection, nondistended, normoactive bowel sounds present, Soft to palpation and non-tender PALPATION: Yes Soft to palpation Extremity: COMMON NORMALS: no pedal edema Neuro: COMMON NORMALS: patient oriented x3 Psych: COMMON NORMALS: mental status grossly normal Data : 11/25/20 05:30 11/26/20 03:00 Micro: Microbiology 11/24/20 09:36 Blood Culture - Preliminary Blood NEGATIVE TO DATE 11/24/20 09:12 Blood Culture - Preliminary Blood NEGATIVE TO DATE A&P Assessment and plan (1) Bleeding at insertion site: Pressure dressing placed in ER at insertion site Due to thrombocytopenia and coagulopathy of liver disease Have consulted Dr. Michele Status post surgical intervention, no bleeding, hemoglobin 7.1 today, will give 1 unit PRBC Monitor h/h Tx underlying coagulpathy Status: Acute (2) Abnormal INR: Due to liver disease Vit K given 5 mg May need to give additional INR/PT in am May also consider FFP. May not improve bleeding given etiology of liver cirrhosis Status: Acute (3) Thrombocytopenia: Possibly due to liver disease transfuse if < 50K with persistnet bleeding Status: Acute (4) ESRD (end stage renal disease) on dialysis: Likely hepatorenal syndrome, decompensated liver failure, consult nephrology , given anasarca, generalized anasarca, will need hemodialysis today M/W/F schedule for HD Status: Acute (5) Liver cirrhosis: -Secondary to iron overload -Hemoglobin 7.1 -Platelet count 68,000 -INR 2.32 -Total bili 9.0, direct bili 3.5, higher than his normal, has scleral icterus -Albumin 2.5, total protein 4.4 -Hepatorenal syndrome -Hold off on IV hydration, will received HD -Unfortunately do not have GI, patient has a GI appointment in the next few weeks -Monitor bilirubin, if it continues to trend upwards currently going downwards -Awaiting family's decision about transfer versus discharge versus hospice Status: Acute (6) Anemia: Due to acute blood loss, renal failure and autoimmune Transfuse if < 7.0, will give 1 unit PRBC today Recheck CBC in am Monitor h/h No anticoagulation Status: Acute (7) Hemorrhage from dialysis catheter: Status: Acute (8) Anasarca: Status: Acute (9) Hyperbilirubinemia: Will do right upper quadrant ultrasound, trend bilirubins, hold off on fluids, will receive HD Status: Acute (10) Leg swelling: Status: Acute Additional A&P Information Full code, DVT prophylaxis contraindicated given coagulopathy, continue SCDs Attestations Medical Necessity Statement*: Patient requires hospitalization for hepatorenal syndrome, fluid overload, liver cirrhosis Coding Level of Care Code Acute Hydraulic Billet Maker for Chg Fwd Diagnoses Bleeding at insertion site L76.82 Abnormal INR R79.1 Thrombocytopenia D69.6 ESRD (end stage renal disease) on dialysis N18.6; Z99.2 Liver cirrhosis K74.60 Anemia D64.9 Hemorrhage from dialysis catheter T82.838A Anasarca R60.1 Hyperbilirubinemia E80.6 Leg swelling M79.89
[2020-11-26] MEDS: sodium chloride 0.9% (100 ml) 100 ML 200 ML (17:41)
[2020-11-27] VITALS (10 sets, daily range): BP systolic 100–119; BP diastolic 53–68; PULSE 81–98; RESP 15–20; TEMP 36.4–37.1; O2SAT 94–98
--- NOTE | 2020-11-27 05:36 | PC.NURSE ---
PATIENT COMPLAINT: THE PATIENT COMPLAINED TO CADENCE AMATO, THAT HE WAS HAVING DIFFICULTY BREATHING. DENIED ANY CHEST PAIN, HEADACHES, AND VITAL SIGNS WERE STABLE AT 98.0 ORAL, 95 PULSE, 16 RESPIRATIONS, 100/53, AND 95% ON ROOM AIR. THIS NURSE WENT IN TO EVALUATE THE PATIENT AND THE PATIENT WAS FOUND TO BE SLEEPING WITH NO SIGNS OF DISTRESS.
[2020-11-27 05:39] LABS: Basophils # 0.1 10^3/uL (0.0-0.1); Basophils % 0.6 %; Eosinophils # 0.1 10^3/uL (0.0-0.8); Eosinophils % 1.3 %; Hematocrit 23.1 % (42.0-52.0); Hemoglobin 7.3 g/dL (11.7-16.6); Lymphocytes % 23.9 %; Mean Corpuscular HGB Conc 31.6 g/dL (30.0-36.0); Mean Corpuscular Volume 104.5 fL (80-94); Mean Platelet Volume 10.8 fL (7.4-10.4); Monocytes # 1.7 10^3/uL (0.2-0.9); Monocytes % 20.3 %; Neutrophils # 4.37 10^3/uL (1.8-7.7); Neutrophils % 53.2 %; Nucleated Red Blood Cells % 0 %; Platelet Count 68 10^3/cmm (130-400); Red Blood Count 2.21 10^6/uL (4.1-5.3); Red Cell Distribution Width 21.7 % (12.1-15.1); White Blood Count 8.2 10^3/uL (4.0-10.0)
[2020-11-27 05:56] LABS: Ammonia 23 umol/L (16-60); Lactate (Lactic Acid level) 3.1 mmol/L (0.5-2.2)
[2020-11-27 06:09] LABS: Alanine Aminotransferase 27 U/L (0-41); Albumin Level 2.5 g/dL (3.5-5.2); Alkaline Phosphatase 86 IU/L (40-130); Aspartate Amino Transferase 66 U/L (0-40); Blood Urea Nitrogen 25 mg/dL (8-23); C Reactive Protein 11.8 mg/L (0.0-4.9); Calcium 7.9 mg/dL (8.5-10.5); Carbon Dioxide 27 mmol/L (22-29); Chloride 98 mmol/L (98-107); Creatine Phosphokinase 48 U/L (39-308); Globulin 2.1 g/dL (1.3-4.6); Glucose 109 mg/dL (65-115); Magnesium 1.9 mg/dL (1.7-2.3); NT Pro B Type Natriuretic Pept 2843 pg/mL (0-125); Osmolality Calculated 285 mOsm/kg (285-295); Phosphorus 3.6 mg/dL (2.5-4.5); Sodium 135 mmol/L (136-145); Total Protein 4.6 g/dL (6.6-8.7)
[2020-11-27 06:10] LABS: Total Bilirubin 9.4 mg/dL (0.15-1.2)
[2020-11-27] MEDS: levETIRAcetam 500 mg Tablet 750 MG PO (09:10)
[2020-11-27] MEDS: sevelamer 800 mg Tablet PO ×2 (09:11→15:55)
[2020-11-27] MEDS: pantoprazole DR 40 mg Tablet PO (09:11)
[2020-11-27] MEDS: midodrine 5 mg TABLET 10 MG PO ×2 (09:11→15:55)
--- NOTE | 2020-11-27 11:18 | XR_ITS ---
WS: [id number] Exam: XR chest 1V portable [id number] Date/Time of Exam: 11/27/2020 11:25 AM Reason For Exam: sob Comparison 11/18/2020. Small infiltrate seen along the left heart border. Small amount of fluid in the minor fissure. The mik ngs are fully expanded. No pleural effusions are seen. Heart size is top limits normal. Pulmonary vas cularity mildly prominent. A right-sided double-lumen central line is noted ending near the region of the cavoatrial junction. A small battery pack superimposes the left heart border. XR/XR chest 1V portable [id number] IMPRESSION: 1. Small infiltrate along the left heart border. Small amount of fluid in the m inor fissure. 2. Right-sided central line appearing to be in satisfactory position.
--- NOTE | 2020-11-27 11:30 | PM.PN ---
Subjective Subjective: Interval history: shortness of breath overnight - better now Medications: Reviewed: Yes Vitals/I&O/Wt Last Vital Signs Temp 97.9 F 11/27/20 08:00 Pulse 98 11/27/20 08:00 Resp 15 11/27/20 08:00 BP 119/68 11/27/20 08:00 Pulse Ox 96 11/27/20 08:00 11/26/20 11/27/20 11/27/20 22:59 06:59 14:59 Intake Total 340.000 / 340.000 120 / 460.000 240 / 240 Output Total 50 / 200 Balance 290.000 / 140.000 120 / 260.000 240 / 240 Physical Exam Const: COMMON NORMALS: no acute distress and alert Eye: SCLERA: scleral abnormal (icertus) Laterality of scleral abnormality: positive bilateral Extremity: GENERAL: Yes edema Neuro: SENSORIUM/ORIENTATION: Yes alert Data : 11/27/20 05:27 11/27/20 05:27 CXR: Radiologist's impression: Small infiltrate seen along the left heart border. Small amount of fluid in the minor fissure. The lungs are fully expanded. No pleural effusions are seen. Heart size is top limits normal. Pulmonary vascularity mildly prominent. A right-sided double-lumen central line is noted ending near the region of the cavoatrial junction. A small battery pack superimposes the left heart border. A&P Additional A&P Information 1. ESRD, usual HD MWF 2. Cirrhosis 3. Bleeding from dialysis catheter exit site - resolved 4. Anasarca 5. Anemia, Hb not significantly improved after transfusion 1u pRBC Recommend: HD today, 2L UF as BP tolerates. No heparin. Continue HD MWF. Discussed fluid restriciton. Plan for tertiary care center follow-up as outpatient. Exam and interview performed with aid of bedside RN using telemedicine. Attestations Medical Necessity Statement*: see above Coding Level of Care Code Acute Cytogenetics Technologist for Pillo Edwards
--- NOTE | 2020-11-27 11:43 | P.DS_ITS ---
Discharge Providers Date of Admission: 11/25/20 12:33 Date of Discharge: November 27, 2020 Attending Provider at Admission: Jennifer Marmolejo Attending Provider at Discharge: Nadir Quevedo MD Primary Care Provider: Jessica Moreira MD Diagnoses at Discharge Discharge Diagnosis (1) Bleeding at insertion site: Status: Acute (2) Abnormal INR: Status: Acute (3) Thrombocytopenia: Status: Acute (4) ESRD (end stage renal disease) on dialysis: Status: Acute (5) Liver cirrhosis: Status: Acute (6) Anemia: Status: Acute (7) Hemorrhage from dialysis catheter: Status: Acute (8) Anasarca: Status: Acute (9) Hyperbilirubinemia: Status: Acute (10) Leg swelling: Status: Acute Reason for Visit Reason for Visit: PORT ISSUES Hospital Course Hospital Course This is a pleasant 75-year-old male with a past medical history of iron overload liver cirrhosis, A. fib not on anticoagulation, hepatorenal syndrome/end-stage renal disease dialysis dependent, who presents to [facility] due to evidence of fluid overload and bleeding from his tunnel dialysis catheter site From his tunnel dialysis catheter site, patient had evidence of bleeding, likely secondary to elevated INR and low platelet count, Dr. Michele was consulted, he reinforced dialysis catheter. Patient did receive 2 days of inpatient dialysis, without any significant evidence of bleeding. Advised to continue to monitor for bleeding, continue to reinforce area with pressure bandage, follow-up if it continues to bleed/ For his decompensated liver failure, from iron overload, his INR is 2.19, his creatinine is 3.6, he is dialysis dependent with his hepatorenal syndrome, his lactate 3.2, bili is 9.4, albumin is 2.3, total protein 4.5, BNP is 2672, he has all the indications for decompensated liver failure -I advised him that given his decompensated liver failure, currently he has a high risk of complications, high risk of morbidity and mortality, unfortunately I am not a telegraphic typewriter installer t, we do not have a GI service here at [facility] [place], but generally in people who have decompensated liver failure the life expectancy is anywhere between 6 months to a year -Options had I raised the family was -Transfer to [facility], first this would not guarantee that the transplant physician or team at [facility] would take him, they might even asked him to be discharged home so that they can follow-up with him as outpatient, bu tif he was transferred today to [facility], they could start some of the transplant process, transplant evaluation, process, however this would not guarantee him a liver transplant, he would be likely placed on the transplant list. I was clear with family that he does have end-stage renal disease hepatorenal syndrome, history of A. fib, history of a duodenal ulcer, To my knowledge and according to his telegraphic typewriter installer, patient had an episode of GI bleed in December 2018, upper GI bleed, found to have a duodenal ulcer, this was the reason why he was not deemed a transplant candidate in the past. However in speaking with patient's GI physician, that he could always reassess his need for transplant, and see if he would be a candidate for transplant as an outpatient. His FibroScan in March 08, 2019 showed a CAP score of 297, moderate to severe steatosis, mean elastography to 2.3K PA. 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 in addition I was clear with family that even if he is accepted at [facility], this does not guarantee him the liver, does not guarantee that they could take him right away, the process can take time and in some cases he could be transferred there, evaluated, and discharged home, and follow-up with them as outpatient. Patient's family elected to pursue transfer to [facility], I spoke to Dr. Johnson at [facility], given that patient is medically stable, there is no urgent need for transfer and urgent evaluation for liver transplant. Dr. Johnson did advise me that given his hepatorenal syndrome he would both need a liver and kidney transplant. He recommended discharge home, with outpatient follow-up next week with [facility] for liver transplant evaluation. I spoke with family, they agreed with the plan, to be discharged home with follow-up with Dr. Johnson or his colleagues at [facility] next week. -Second option I raised was to discharge him home, and to follow-up with his ga stroenterologist as outpatient, and he could go through his records management engineer at the [place] to see if he could be deemed a transplant candidate, reportedly I am unaware of the specifics do the [place]. patient's family, tells me that they will look into this, and follow-up with her records management engineer at the [place] -third option I discussed was hospice, hospice would emphasize comfort, he would not be deemed a transplant candidate if he was on hospice, would emphasize his quality of life. For now patient's family do not want to go down the hospice route Patient was discharged home, with his home medications, follow-up with [facility] gastroenterology early next week. Physical Exam Const: COMMON NORMALS: no acute distress and patient oriented x3 Eye: OTHER: Scleral icterus, jaundice Chest: OTHER: Port is in place, with pressure drainage Resp: COMMON NORMALS: normal respiratory effort, No retractions, No use of accessory muscles and clear to auscultation bilaterally AUSCULTATION: clear to auscultation bilaterally Cardio: COMMON NORMALS: regular rate, regular rhythm, S1 normal heart sound present and S2 normal heart sound present RATE: regular rate RHYTHM: regular rhythm HEART SOUNDS: S1 normal heart sound present and S2 normal heart sound present GI: COMMON NORMALS: Normal to inspection, nondistended, normoactive bowel sounds present, Soft to palpation and non-tender INSPECTION: Yes Anasarca PALPATION: Yes Soft to palpation Extremity: OTHER: 1+ pitting edema Neuro: COMMON NORMALS: patient oriented x3 Psych: COMMON NORMALS: mental status grossly normal Discharge Data Data Completed and Pending: Completed Studies During Hospitalization Category Date Time Status US abdomen limite d 24416 Routine Ultrasound 11/24/20 09:14 Completed Pending at discharge Category Date Time Status XR chest 1V lee ble [id number] Stat Exams 11/27/20 11:18 Taken JENY Screen w/ Ref norma Routine Lab 11/24/20 09:12 Results Blood Culture Sta t Lab 11/24/20 09:36 Results Complete Blood Co unt w/Auto AM LABS Lab 11/28/20 04:00 Ordered Complete Blood Co unt w/Auto AM LABS Lab 11/29/20 04:00 Ordered Leukocyte Reduced RBC Stat Lab 11/26/20 11:30 Results SS A Ro Sjogrens Antibody Routine Lab 11/24/20 09:12 Results SS-B/LA Antibody IGG Routine Lab 11/24/20 09:12 Results Type and Screen R outine Lab 11/24/20 00:56 Results Urine Culture Sta t Lab 11/26/20 08:30 Received Vitamin D 1,25 Di hydroxy Routine Lab 11/24/20 09:12 Received Labs from last 24 hours 11/27/20 11/27/20 11/27/20 05:27 05:27 05:27 WBC 8.2 RBC 2.21 L Hgb 7.3 L Hct 23.1 L MCV 104.5 H MCH 33.0 MCHC 31.6 RDW 21.7 H Plt Count 68 L MPV 10.8 H Neut % (Auto) 53.2 Lymph % (Auto) 23.9 [place] % (Auto) 20.3 Eos % (Auto) 1.3 Baso % (Auto) 0.6 Neut # (Auto) 4.37 Lymph # (Auto) 2.0 [place] # (Auto) 1.7 H Eos # (Auto) 0.1 Baso # (Auto) 0.1 Nucleated RBC % (a uto) 0 Nucleated RBCs # 0.0 PT INR Sodium Potassium Chloride Carbon Dioxide Anion Gap BUN Creatinine GFR Calculation Glucose Calculated Osmolal ity Lactate 3.1 H Calcium Phosphorus Magnesium Total Bilirubin AST ALT Alkaline Phosphata se Ammonia 23 Creatine Kinase C-Reactive Protein NT-Pro-B Natriuret Pep Total Protein Albumin Globulin Blood Type Rho(D) Type Antibody Screen Crossmatch 11/27/20 11/27/20 11/24/20 05:27 05:27 00:56 WBC RBC Hgb Hct MCV MCH MCHC RDW Plt Count MPV Neut % (Auto) Lymph % (Auto) [place] % (Auto) Eos % (Auto) Baso % (Auto) Neut # (Auto) Lymph # (Auto) [place] # (Auto) Eos # (Auto) Baso # (Auto) Nucleated RBC % (a uto) Nucleated RBCs # PT 24.90 H INR 2.20 H Sodium 135 L Potassium 4.0 Chloride 98 Carbon Dioxide 27 Anion Gap 14.0 BUN 25 H Creatinine 3.0 H GFR Calculation Not Reportable Glucose 109 Calculated Osmolal ity 285 Lactate Calcium 7.9 L Phosphorus 3.6 Magnesium 1.9 Total Bilirubin 9.4 H* AST 66 H ALT 27 Alkaline Phosphata se 86 Ammonia Creatine Kinase 48 C-Reactive Protein 11.8 H NT-Pro-B Natriuret Pep 2843 H Total Protein 4.6 L Albumin 2.5 L Globulin 2.1 Blood Type O Positive Rho(D) Type Positive / 4+ Antibody Screen Negative Crossmatch See Detail Vitals: Last Vital Signs Temp 97.9 F 06/18/21 08:00 Pulse 98 11/27/20 08:00 Resp 15 11/27/20 08:00 BP 119/68 11/27/20 08:00 Pulse Ox 96 11/27/20 08:00 Discharge Plan Discharge Patient Disposition: Home Condition: Stable Prescriptions: New doxycycline hyclate 100 mg tablet 100 mg PO BID 7 Days Qty: 14 RF: 0 Continued levetiracetam 750 mg tablet 750 mg PO BID RF: 0 pantoprazole 40 mg tablet,delayed release (DR/EC) 40 mg PO DAILY@08 RF: 0 pravastatin 20 mg tablet 10 mg PO DAILY@17 RF: 0 folic acid 1 mg Tablet 1 mg PO DAILY@08 RF: 0 budesonide-formoterol [Symbicort] 80-4.5 mcg/actuation Hfa Aerosol Inhaler 2 puff INHALATION BID RF: 0 midodrine 5 mg Tablet 10 mg PO TID Qty: 90 RF: 0 lactulose 10 gram/15 mL solution 45 ml PO BID Qty: 0 RF: 0 Xifaxan 550 mg tablet 550 mg PO BID@0800,1700 RF: 0 Discharge Orders: Discharge Order (Routine); Ordered 11/27/20 Ordered By: Nadir Quevedo Referrals: Jessica Moreria MD [Primary Care Provider] - Discharge Diet: Advance as tolerated Discharge Activity: Increase activity as tolerated Patient Instructions: Opioid Safety Activity Restrictions/Additional Instructions: Continue all home medications. Had bleeding recurs around dialysis catheter applied direct pressure and return to the emergency department. Follow-up with PCP in 2 to 3 days. -Follow-up with [facility], Dr. Johnson, for liver transplant evaluation -Monitor for increased confusion if so go to emergency room -Monitor for fevers if so go to the emergency room -Monitor for sudden abdominal pain or abdominal distention if so go to the emergency room -Monitor for bloody stools or bloody vomitus o if so go to the emergency room Discharge Attestations Time Spent in Discharge Care*: greater than 30 min Status at Discharge: Cognitive status at discharge: cognitively intact , Behavioral status at discharge: cooperative , Quality Metrics Clinical Quality Measures During this hospital stay, did patient experience: None Coding Level of Care Code Acute Chg FW DC note Diagnoses Bleeding at insertion site L76.82 Abnormal INR R79.1 Thrombocytopenia D69.6 ESRD (end stage renal disease) on dialysis N18.6; Z99.2 Liver cirrhosis K74.60 Anemia D64.9 Hemorrhage from dialysis catheter T82.838A Anasarca R60.1 Hyperbilirubinemia E80.6 Leg swelling M79.89
--- NOTE | 2020-11-27 16:19 | PC.NURSE ---
patient and verbalized understanding of discharge instructions, home medications, and follow up appointments. Darlene AMATO from dialysis re-dressed patients dialysis catheter.
[2020-12-03 16:18] LABS: Vit D 1,25 (Oh)2, Total 9 pg/mL (18-72); Vit D2 1,25 (Oh)2 <8 pg/mL; Vit D3 1,25 (Oh)2 9 pg/mL
== END 2020-11-27 16:32 | disposition home or self-care (01) | DRG 441 ==
LOC: ER 23:44 → MEDSURG 11-24 01:53
PROVIDERS: Internal Medicine Nephrology; Admitting Provider Hospitalist; Emergency Provider Emergency Medicine; PCP Family Medicine; Visit Provider Family Medicine
DX: K76.7 Hepatorenal syndrome (principal); N18.6 End stage renal disease; K72.00 Acute and subacute hepatic failure without coma; I12.0 Hypertensive chronic kidney disease with stage 5 chronic kidney disease or end stage renal disease; K76.6 Portal hypertension; D62 Acute posthemorrhagic anemia; T82.838A Hemorrhage due to vascular prosthetic devices, implants and grafts, initial encounter; E87.2 Acidosis; K72.10 Chronic hepatic failure without coma; L76.82 Other postprocedural complications of skin and subcutaneous tissue; D63.1 Anemia in chronic kidney disease; I71.4 Abdominal aortic aneurysm, without rupture; E88.01 Alpha-1-antitrypsin deficiency; I48.91 Unspecified atrial fibrillation; N40.0 Benign prostatic hyperplasia without lower urinary tract symptoms; I25.10 Atherosclerotic heart disease of native coronary artery without angina pectoris; E78.5 Hyperlipidemia, unspecified; E83.119 Hemochromatosis, unspecified; D69.6 Thrombocytopenia, unspecified; N25.0 Renal osteodystrophy; R60.1 Generalized edema; E80.6 Other disorders of bilirubin metabolism; E87.79 Other fluid overload; Z99.2 Dependence on renal dialysis; Z87.19 Personal history of other diseases of the digestive system; Z87.11 Personal history of peptic ulcer disease; Z86.010 Personal history of colon polyps; Z86.73 Personal history of transient ischemic attack (TIA), and cerebral infarction without residual deficits
CPT/HCPCS: 36415; 71045; 76705; 80053; 81001; 82140; 82247; 82248; 82306; 82310; 82550; 82607; 82652; 82728; 82746; 82977; 83540; 83550; 83605; 83735; 83880; 83970; 84100; 84145; 85025; 85610; 85651; 85730; 86038; 86140; 86225; 86235; 86706; 86803; 86850; 86900; 86920; 87040; 87086; 87106; 87340; 90935; 94640; 96365; 99285; G0378; J3430; P9016; Q3014; Q4081

== ENCOUNTER → 2020-12-03 06:26 | Day surgery (SDC) | payer OTHER, MEDICARE, SELFPAY ==
[2020-12-03] VITALS (7 sets, daily range): BP systolic 111–136; BP diastolic 61–88; PULSE 81–92; RESP 18; TEMP 36.2–36.9; O2SAT 99–100
[2020-12-03] MEDS: sodium chloride 0.9% (100 ml) 100 ML 10 ML (07:39)
== END ==
PROVIDERS: PCP Family Medicine; Visit Provider Internal Medicine Nephrology
DX: D63.1 Anemia in chronic kidney disease (principal)
CPT/HCPCS: 36415; 36430; 86850; 86900; 86920; P9016

== ENCOUNTER 2020-12-05 02:46 | Observation (INO) | payer OTHER, MEDICARE, SELFPAY ==
[2020-12-05] VITALS (14 sets, daily range): BP systolic 97–128; BP diastolic 51–72; PULSE 77–88; RESP 16–20; TEMP 36.2–36.7; O2SAT 94–100; BMI 33.7
--- NOTE | 2020-12-05 03:10 | XRR_ITS ---
PROCEDURE INFORMATION: Exam: XR Chest Exam date and time: 12/05/2020 3:10 AM Age: 75 years old Clinical indication: Right-sided; Prior surgery; Surgery date: 6+ months; Surgery type: Dialysis catheter. Loop recorder; Patient HX: C/O right side chest pain and short of breath. Had dialysis yesterday-drained 1.5 ltr. Feet still swollen; Additional info: SOB TECHNIQUE: Imaging protocol: XR of the chest. Views: 1 view. COMPARISON: CR XR chest 1V portable [id number] 11/27/2020 11:38 AM FINDINGS: Tubes, catheters and devices: A dialysis catheter is placed via the right internal jugular vein with its tip at the level of the superior vena cava. Lungs: There is mild prominence of the pulmonary vasculature, increased peribronchial markings and diffuse interstitial opacities present most notably within the lower hemithoraces, findings that could represent pulmonary edema. Superimposed interstitial pneumonia cannot be entirely excluded. Pleural spaces: Unremarkable. No pleural effusion. No pneumothorax. Heart/Mediastinum: Unremarkable. No cardiomegaly. Bones/joints: Unremarkable. XR/XR chest 1V portable [id number] IMPRESSION: Mildly prominent pulmonary vasculature, increased peribronchial markings and diffuse interstitial opacities most notably within the lower hemithoraces, findings suggesting pulmonary edema. Superimposed interstitial pneumonia cannot be entirely excluded.
--- NOTE | 2020-12-05 03:10 | ECG_ITS ---
[facility] Test Date: 2020-12-05 Pat Name: Blayne Martinez Department: Room: Gender: Male Clinical Trials Specialist: : [id number] Requested By: Pool Gilbert Order Number: [id number] Chas MD: Alyson Turner M.D. Measurements Intervals [place] Rate: 81 P: -67 NH: 155 QRS: 57 QRSD: 79 T: 39 QT: 422 QTc: 493 Interpretive Statements SINUS RHYTHM MINIMAL ST DEPRESSION [0.025+ mV ST DEPRESSION] Compared to ECG 11/05/2020 19:21:08 Atrial fibrillation no longer present ST (T wave) deviation still present Electronically Signed On 12-06-2020 9:37:44 CDT by Alyson Turner M.D. [id number]
[2020-12-05 03:22] LABS: Basophils % 0.5 %; Eosinophils # 0.1 10^3/uL (0.0-0.8); Eosinophils % 1.7 %; Hematocrit 21.5 % (42.0-52.0); Lymphocytes # 2.6 10^3/uL (0.8-4.8); Mean Corpuscular HGB Conc 32.6 g/dL (30.0-36.0); Mean Corpuscular Hemoglobin 34.1 pg (28.0-34.0); Mean Corpuscular Volume 104.9 fL (80-94); Mean Platelet Volume 11.2 fL (7.4-10.4); Monocytes # 1.7 10^3/uL (0.2-0.9); Monocytes % 21.6 %; Neutrophils # 3.31 10^3/uL (1.8-7.7); Neutrophils % 42.7 %; Nucleated Red Blood Cells % 0 %; Platelet Count 42 10^3/cmm (130-400); Red Blood Count 2.05 10^6/uL (4.1-5.3); Red Cell Distribution Width 23.3 % (12.1-15.1); White Blood Count 7.8 10^3/uL (4.0-10.0)
[2020-12-05 03:36] LABS: INR 2.29 (0.8-1.2)
[2020-12-05 03:41] LABS: Alanine Aminotransferase 37 U/L (0-41); Albumin Level 2.4 g/dL (3.5-5.2); Alkaline Phosphatase 98 IU/L (40-130); Anion Gap 12.8 (5-19); Aspartate Amino Transferase 96 U/L (0-40); Blood Urea Nitrogen 12 mg/dL (8-23); Carbon Dioxide 27 mmol/L (22-29); Chloride 99 mmol/L (98-107); Globulin 2.4 g/dL (1.3-4.6); Glucose 99 mg/dL (65-115); Magnesium 1.7 mg/dL (1.7-2.3); Osmolality Calculated 280 mOsm/kg (285-295); Phosphorus 2.3 mg/dL (2.5-4.5); Potassium 3.8 mmol/L (3.5-5.1); Sodium 135 mmol/L (136-145); Total Protein 4.8 g/dL (6.6-8.7)
--- NOTE | 2020-12-05 03:52 | ED_ITS ---
HPI - SOB/Dyspnea General: Chief Complaint: Shortness of Breath/Dyspnea Stated Complaint: SOB/CP Time Seen by Provider: 12/05/20 02:50 History of Present Illness: HPI Narrative: 75-year-old male with a history of hepatorenal disease, on dialysis. He presents with acute onset shortness of breath while sleeping tonight. He was dialyzed yesterday. He is on 2 L of oxygen at home. He complained of chest pain as well. On EMS arrival, saturations were 94% on his home O2 setting. He was turned up to 4 L, and within 10 minutes, his pain and shortness of breath improved significantly MD elicited complaint: shortness of breath Pertinent past history: other Context: recent illness Timing: constant and now resolved Severity: moderate Exacerbating factors: lying flat and exertion Relieving factors: oxygen Known history of: other Associated symptoms: Reports chest congestion and chest pain; Deny abdominal pain, cough, dizziness, fever(s), nausea, syncope or vomiting Treatment prior to arrival: oxygen Review of Systems Const: Denies: fever(s) Eyes: Denies: change in vision Card: Reports: chest pain; Denies: syncope Resp: Reports: chest congestion GI: Denies: abdominal pain, nausea or vomiting Neuro: Denies: dizziness [facility] ED PFSH: Medical History AAA (abdominal aortic aneurysm) 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 Atrial fibrillation On anticoagulation BPH (benign prostatic hyperplasia) Carotid artery stenosis Diverticulosis Duodenal ulcer Gastritis Hemochromatosis Hiatal hernia History of colon polyps Follow-up colonoscopy in 2023 HTN (hypertension) Hyperlipidemia Internal hemorrhoids Liver, cirrhosis, portal Portal hypertension Status post placement of implantable loop recorder TIA (transient ischemic attack) Surgical History History of cystoscopy History of esophagogastroduodenoscopy (EGD) History of vasectomy S/P discectomy S/P ORIF (open reduction internal fixation) fracture RIGHT HIP Status post colonoscopy with polypectomy Family History Mother Stroke Brother Abxxm-2-hmotfvscffl deficiency Denies family history of Anesthesia complication Bleeding disorder Social History Smoking and tobacco status: never smoked Alcohol intake: never Household members: spouse Marital status: Current occupational status: retired Physical Exam Const: COMMON NORMALS: no acute distress and alert Chest: COMMONS NORMALS: normal inspection of the chest Resp: COMMON NORMALS: normal respiratory effort, No use of accessory muscles and clear to auscultation bilaterally AUSCULTATION: clear to auscultation bilaterally Cardio: COMMON NORMALS: regular rate and regular rhythm RATE: regular rate RHYTHM: regular rhythm HEART SOUNDS: Murmur heart sound present (systolic) PERIPHERAL PULSES: radial pulses present GI: COMMON NORMALS: Soft to palpation and no masses PALPATION: Yes Soft to palpation Extremity: GENERAL: Yes edema (4+ bilateral) Neuro: SENSORIUM/ORIENTATION: Yes alert Course Consultations: Consultation #1: sneha Vital Signs: Vital signs: Vital Signs Temperature 97.1 F L 12/05/20 02:52 Pulse Rate 88 12/05/20 02:52 Respiratory Rate 20 H 12/05/20 02:52 Blood Pressure 110/57 12/05/20 02:52 Pulse Oximetry 99 12/05/20 02:52 MDM - SOB/Dyspnea MDM Narrative: Medical decision making narrative: 75-year-old gentleman. He p resents with sudden onset short of breath. His chest x-ray shows pulmonary edema. He was dialyzed yesterday, Monday. His hemoglobin is down to 7.0. His platelet count is 42. He remains somewhat coagulopathic with an INR of 2.3. No evidence of active bleeding here in the ER. He will come in for dialysis, and possibly transfusion if needed. Lab Data: Labs: Lab Results 12/05/20 12/05/20 12/05/20 Range/Units 03:14 03:14 03:22 WBC 7.8 (4.0-10.0) 10^3/ uL RBC 2.05 L (4.1-5.3) 10^6/u L Hgb 7.0 L (11.7-16.6) g/dL Hct 21.5 L (42.0-52.0) % MCV 104.9 H (80-94) fL MCH 34.1 H (28.0-34.0) pg MCHC 32.6 (30.0-36.0) g/dL RDW 23.3 H (12.1-15.1) % Plt Count 42 L (130-400) 10^3/c mm MPV 11.2 H (7.4-10.4) fL Neut % (Auto) 42.7 % Lymph % (Auto) 33.0 % [place] % (Auto) 21.6 % Eos % (Auto) 1.7 % Baso % (Auto) 0.5 % Neut # (Auto) 3.31 (1.8-7.7) 10^3/u L Lymph # (Auto) 2.6 (0.8-4.8) 10^3/u L [place] # (Auto) 1.7 H (0.2-0.9) 10^3/u L Eos # (Auto) 0.1 (0.0-0.8) 10^3/u L Baso # (Auto) 0.0 (0.0-0.1) 10^3/u L Nucleated RBC % (a uto) 0 % Nucleated RBCs # 0.0 /100WBC PT 25.60 H (12.1-14.9) SECO NDS INR 2.29 H (0.8-1.2) Sodium 135 L (136-145) mmol/L Potassium 3.8 (3.5-5.1) mmol/L Chloride 99 (98-107) mmol/L Carbon Dioxide 27 (22-29) mmol/L Anion Gap 12.8 (5-19) BUN 12 (8-23) mg/dL Creatinine 2.5 H (0.7-1.2) mg/dL GFR Calculation Not Reportable Glucose 99 (65-115) mg/dL Calculated Osmolal ity 280 L (285-295) mOsm/k g Calcium 8.0 L (8.5-10.5) mg/dL Phosphorus 2.3 L (2.5-4.5) mg/dL Magnesium 1.7 (1.7-2.3) mg/dL Total Bilirubin 7.5 H* (0.15-1.2) mg/dL AST 96 H (0-40) U/L ALT 37 (0-41) U/L Alkaline Phosphata se 98 (40-130) IU/L Total Protein 4.8 L (6.6-8.7) g/dL Albumin 2.4 L (3.5-5.2) g/dL Globulin 2.4 (1.3-4.6) g/dL Discharge Plan Discharge Patient Disposition: Placed in Observation Admit Provider: Paul Moeller Clinical Impression: Heart failure, chronic, with acute decompensation Qualifiers: Heart failure type: systolic Qualified Code(s): I50.23 - Acute on chronic systolic (congestive) heart failure Coding Level of Care Code ED Flight Surgeon for g Fwd Exam Detailed
[2020-12-05 03:57] LABS: Total Bilirubin 7.5 mg/dL (0.15-1.2)
--- NOTE | 2020-12-05 05:10 | PM.HP ---
Providers/Chief Complaint Primary Care Provider: Jessica Moreira MD Chief Complaint: SOB/CP History of Present Illness Blayne Martinez is a 75 year old male who carries diagnosis of liver cirrhosis secondary to hemochromatosis, A. fib, hepatorenal syndrome, moderate aortic stenosis, portal hypertension, extrarenal disease, hemodialysis dependent, not a candidate anticoagulation secondary to chronic anemia, patient was evaluated at [facility] and was deemed not a suitable candidate for liver or kidney transplant, he also carries history of GI bleed secondary to duodenal ulcer in the past presented today with chief complaint of fatigue, lethargy and shortness of breath. Patient is stating that he was dialyzed on Monday and got PRBC transfusion on , on Monday after dialysis he went home, after dinner he went to his bed but woke up after an hour feeling extremely short of breath and anxious, he was experiencing right-sided chest discomfort which he is describing as severe pain he thought he is going to . His brought him his oxygen tank. His symptoms resolved with use of oxygen. Sublingual nitroglycerin was not given. Systolic blood pressure was 98mmhg. he did not experience nausea, vomiting, diaphoresis. Because of the symptoms he was brought to the ER for further evaluation. Patient is endorsing orthopnea, PND. No recent fever, productive cough. He has been taken off spironolactone and Lasix because of his hypotension. Diagnostics in the ER revealed hemoglobin 7 systolic blood pressure running soft 98 to 111 mmHg, patient is asymptomatic has generalized anasarca appearance, positive scleral icterus, no active hepatic encephalopathy Review of Systems Const: Reports: chills and fatigue; Denies: fever(s) Eyes: Denies: change in vision ENMT: Denies: throat pain Card: Reports: chest pain, swelling of feet/ankles, dyspnea on exertion and orthopnea Resp: Reports: dyspnea GI: Denies: abdominal pain : Denies: flank pain Musc: Reports: extremity swelling; Denies: neck pain Skin/Breast: Reports: lesions Neuro: Denies: headache(s) Psych: Denies: anxiety Endo: Denies: polyuria Shai/Lymph: Denies: easy bruising All/Imm: Denies: urticaria Medications/Allergies Home Medications Medication Instructions Recorded Confirmed Last Taken Type pantoprazole 40 mg tablet,delayed 40 mg PO DAILY@08 tab 06/17/19 12/03/20 12/02/20 History release levetiracetam 750 mg tablet 750 mg PO BID 06/18/19 12/03/20 12/02/20 History pravastatin 20 mg tablet 10 mg PO DAILY@17 tab 06/18/19 12/03/20 12/02/20 History folic acid 1 mg PO DAILY@08 12/31/19 12/03/20 12/02/20 History Xifaxan 550 mg PO BID@0800,1700 10/21/20 12/03/20 12/02/20 History budesonide-formoterol [Symbicort] 2 puff INHALATION BID 11/03/20 12/03/20 12/02/20 History lactulose 45 ml PO BID #0 ml 11/19/20 12/03/20 11/03/20 08:30 Rx midodrine 10 mg PO TID #90 tab 11/19/20 12/03/20 12/02/20 Rx Allergies Allergy/AdvReac Type Severity Reaction Status Date / Time No Known Allergies Allergy Verified 11/25/20 15:47 PFSH Acute PFSH: Medical History AAA (abdominal aortic aneurysm) Elxot-9-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 Atrial fibrillation On anticoagulation BPH (benign prostatic hyperplasia) Carotid artery stenosis Diverticulosis Duodenal ulcer Gastritis Hemochromatosis Hiatal hernia History of colon polyps Follow-up colonoscopy in 2023 HTN (hypertension) Hyperlipidemia Internal hemorrhoids Liver, cirrhosis, portal Portal hypertension Status post placement of implantable loop recorder TIA (transient ischemic attack) Surgical History History of cystoscopy History of esophagogastroduodenoscopy (EGD) History of vasectomy S/P discectomy S/P ORIF (open reduction internal fixation) fracture RIGHT HIP Status post colonoscopy with polypectomy Family History Mother Stroke Brother Ieenr-9-nukxinxrxgj deficiency Denies family history of Anesthesia complication Bleeding disorder Social History Smoking and tobacco status: never smoked Alcohol intake: never Household members: spouse Marital status: Current occupational status: retired Vitals/I&O/Wt Last Vital Signs Temp 97.1 F L 12/05/20 02:52 Pulse 88 12/05/20 02:52 Resp 20 H 12/05/20 02:52 BP 110/57 12/05/20 02:52 Pulse Ox 99 12/05/20 02:52 Weight last 48 hrs Weight 116.12 kg Physical Exam Narrative: EXAM NARRATIVE: Elderly male with generalized anasarca appearance, scleral icterus positive No active discomfort Saturating well on 3 L nasal cannula S1, S2 aortic systolic murmur, grade 2/6 Lower extremity and pedal edema 3+ Ascites without active peritonitis signs, positive bowel sounds No hepatic encephalopathy symptoms Bilateral breath sounds with inspiratory crackles noted No acute respiratory distress EOMI, PERRLA No neurological deficit No joint swelling Data : 12/05/20 03:14 12/05/20 03:14 A&P Assessment and plan (1) Anemia: Status: Acute (2) Liver cirrhosis: Status: Acute (3) ESRD (end stage renal disease) on dialysis: Status: Acute (4) Hepatorenal syndrome: Status: Acute Additional A&P Information Symptomatic anemia with underlying moderate aortic stenosis Patient endorsing orthopnea and PND, generalized anasarca He only got 1 L out on Monday during dialysis, dialysis was stopped secondary to hypotension I would go ahead and give him 1 unit PRBC and request telemetry nephro consult to dialyze him afterwards No active chest pain, I do believe his symptoms are related to primary edema and he will need oxygen on continuous basis, he recently got his oxygen tank yesterday, today was his first night when he was using oxygen however he was under the impression that during sleep his oxygen should be turned off Hepatorenal syndrome not a candidate of liver or kidney transplant, patient does not want to pursue any aggressive intervention at this point in time Renal dialysis diet Goals of care discussed with the patient and his : DNR/DNI DVT prophylaxis contraindicated due to anemia Attestations Medical Necessity Statement*: Anticipating discharge after dialysis and 1 unit PRBC, anticipating discharge within 48 hours Time Spent in Patient Care: 30mins Coding Level of Care Code Acute Security Analyst for nelli Fwd Diagnoses Anemia D64.9 Liver cirrhosis K74.60 ESRD (end stage renal disease) on dialysis N18.6; Z99.2 Hepatorenal syndrome K76.7
--- NOTE | 2020-12-05 07:56 | P.CONIM_ITS ---
Providers/Reason For Consult Consulting Physician/Specialty*: Rosa Elena Mark DO, telenephrology Reason for Consult*: HRS, fluid overload Attending Physician: Paul Moeller MD Primary Care Provider: Jessica Moreira MD History of Present Illness History of Present Illness Blayne Martinez is a 75 year old male presents for evaluation of fatigue, lethargy, shortness of breath. Had HD yesterday with 2L UF. States he is trying to follow fluid restriction. Takes midodrine TID. Denied for liver transplant. Still urinates, unsure of volume. Meds/Allergies Home Medications and Allergies Home Medications Medication Instructions Recorded Confirmed Last Taken Type pantoprazole 40 mg tablet,delayed 40 mg PO DAILY@08 tab 06/17/19 12/03/20 12/02/20 History release levetiracetam 750 mg tablet 750 mg PO BID 06/18/19 12/03/20 12/02/20 History pravastatin 20 mg tablet 10 mg PO DAILY@17 tab 06/18/19 12/03/20 12/02/20 History folic acid 1 mg PO DAILY@08 12/31/19 12/03/20 12/02/20 History Xifaxan 550 mg PO BID@0800,1700 10/21/20 12/03/20 12/02/20 History budesonide-formoterol [Symbicort] 2 puff INHALATION BID 11/03/20 12/03/20 12/02/20 History lactulose 45 ml PO BID #0 ml 11/19/20 12/03/20 11/03/20 08:30 Rx midodrine 10 mg PO TID #90 tab 11/19/20 12/03/20 12/02/20 Rx Allergies Allergy/AdvReac Type Severity Reaction Status Date / Time No Known Allergies Allergy Verified 11/25/20 15:47 PFSH Acute PFSH: Medical History AAA (abdominal aortic aneurysm) Janwt-2-veznijrqzmg deficiency carrier Atrial fibrillation On anticoagulation BPH (benign prostatic hyperplasia) Carotid artery stenosis Diverticulosis Duodenal ulcer Gastritis Hemochromatosis Hiatal hernia History of colon polyps Follow-up colonoscopy in 2023 HTN (hypertension) Hyperlipidemia Internal hemorrhoids Liver, cirrhosis, portal Portal hypertension Status post placement of implantable loop recorder TIA (transient ischemic attack) Surgical History History of cystoscopy History of esophagogastroduodenoscopy (EGD) History of vasectomy S/P discectomy S/P ORIF (open reduction internal fixation) fracture RIGHT HIP Status post colonoscopy with polypectomy Family History Mother Stroke Brother Zging-4-lfqonospjar deficiency Denies family history of Anesthesia complication Bleeding disorder Social History Smoking and tobacco status: never smoked Alcohol intake: never Household members: spouse Marital status: Current occupational status: retired Vitals/I&O/Wt Last Vital Signs Temp 98 F 12/05/20 06:17 Pulse 83 12/05/20 06:17 Resp 18 12/05/20 06:17 BP 105/55 12/05/20 06:17 Pulse Ox 100 12/05/20 06:17 Weight last 48 hrs Weight 116.12 kg Physical Exam Const: COMMON NORMALS: no acute distress GENERAL APPEARANCE: cooperative Extremity: GENERAL: Yes edema Data Imaging^: CXR: Radiologist's impression: Mildly prominent pulmonary vasculature, increased peribronchial markings and diffuse interstitial opacities most notably within the lower hemithoraces, findings suggesting pulmonary edema. Superimposed interstitial pneumonia cannot be entirely excluded A&P Additional A&P Information 1. Stage 4/5 CKD likely due to hepatorenal syndrome 2. Symptomatic anemia. Received 1u PRBC on 3. Volume overload Recommend: currently receiving 1u PRBC Plan for isolated ultrafiltration today, 2L over 3h Prognosis poor Consult Attestations Medical Necessity Statement: per primary service Time Spent in Patient Care: 16 - 35 minutes Coding Level of Care Code Acute Desktop Support Specialist for Yudig Grace
[2020-12-05] MEDS: levETIRAcetam 500 mg Tablet 750 MG PO ×2 (09:05→17:13)
[2020-12-05] MEDS: sodium chloride 0.9% (100 ml) 100 ML (09:05)
[2020-12-05] MEDS: pantoprazole DR 40 mg Tablet PO (09:06)
[2020-12-05] MEDS: folic acid 1 mg Tablet PO (09:06)
[2020-12-05] MEDS: midodrine 5 mg TABLET 10 MG PO ×2 (09:06→16:19)
--- NOTE | 2020-12-05 16:00 | PM.DCS ---
Discharge Providers Date of Admission: 12/05/20 05:08 Date of Discharge: December 05, 2020 Attending Provider at Admission: Paul Moeller MD Attending Provider at Discharge: Dandy Santizo Primary Care Provider: Jessica Moreira MD Diagnoses at Discharge Discharge Diagnosis (1) Anemia: Status: Acute (2) Liver cirrhosis: Status: Acute (3) ESRD (end stage renal disease) on dialysis: Status: Acute (4) Hepatorenal syndrome: Status: Acute Reason for Visit Reason for Visit: SOB/CP Hospital Course Hospital Course Very pleasant 75-year-old gentleman with cirrhosis of the liver secondary to hemochromatosis, A. fib, not on anticoagulation due to anemia, hepatorenal syndrome, moderate aortic stenosis, portal hypertension, recently requiring hemodialysis, after recent evaluation at [facility] not found to be a candidate suitable for liver or kidney transplantation, was admitted due to fatigue, shortness of breath, with finding of fluid overload, pulmonary edema noted on chest x-ray. On Monday underwent dialysis and received to receive transfusion on . Only 1 L was taken out on Monday. On presentation hemoglobin noted to be 7. 1 unit PRBC was ordered for him, and he underwent additional ultrafiltration of 2 L of fluid uneventfully. Afterward he reports he is feeling much better. It appears also he was unaware to continue his oxygen during nighttime and does state that he felt immediate relief when oxygen was restarted in the ambulance. Discussed with him to maintain oxygen at all times. We are obtaining home O2 evaluation prior to discharge to help titrate the level. Discussed with him and his to maintain target saturation 92%. Increase oxygen flow if needed. Contact primary provider in case needing to increase oxygen flow, worsening shortness of breath, worsening edema, or developing cough. Discussed with them results of chest x-ray which suggest pulmonary edema. He otherwise does not have symptoms of pneumonia, however, in case symptoms were to change they know to seek medical attention. He is asked to resume hemodialysis and continue his fluid restriction, continue follow-up with nephrology as well as his other regular follow-up. Physical Exam Const: COMMON NORMALS: no acute distress, patient oriented x3 and alert ORIENTATION/CONSCIOUSNESS: Yes awake OTHER: Pleasant more conversant. is at bedside. HENMT: COMMON NORMALS: oropharynx normal Neck/C-Spine: COMMON NORMALS: no JVD Resp: COMMON NORMALS: normal respiratory effort and clear to auscultation bilaterally AUSCULTATION: clear to auscultation bilaterally Cardio: COMMON NORMALS: no JVD, regular rhythm, S1 normal heart sound present, S2 normal heart sound present and No murmurs present (Cardio) RHYTHM: regular rhythm HEART SOUNDS: S1 normal heart sound present and S2 normal heart sound present GI: COMMON NORMALS: Normal to inspection, nondistended, normoactive bowel sounds present, Soft to palpation and non-tender PALPATION: Yes Soft to palpation Extremity: COMMON NORMALS: no joint enlargement GENERAL: Yes edema (2+) Neuro: COMMON NORMALS: patient oriented x3 and moves all extremities SENSORIUM/ORIENTATION: Yes alert Skin: COMMON NORMALS: no rashes or lesions noted GENERAL SKIN EXAM: no rashes or lesions noted Discharge Data Data Completed and Pending: Completed Studies During Hospitalization Category Date Time Status XR chest 1V lee ble [id number] Urgent Exams 12/05/20 03:10 Completed Pending at discharge Category Date Time Status Levetiracetam Kep pra Stat Lab 12/05/20 05:20 Received Labs from last 24 hours 12/05/20 12/05/20 12/05/20 05:35 05:20 03:22 WBC RBC Hgb Hct MCV MCH MCHC RDW Plt Count MPV Neut % (Auto) Lymph % (Auto) [place] % (Auto) Eos % (Auto) Baso % (Auto) Neut # (Auto) Lymph # (Auto) [place] # (Auto) Eos # (Auto) Baso # (Auto) Nucleated RBC % (a uto) Nucleated RBCs # PT 25.60 H INR 2.29 H Sodium Potassium Chloride Carbon Dioxide Anion Gap BUN Creatinine GFR Calculation Glucose Calculated Osmolal ity Calcium Phosphorus Magnesium Total Bilirubin AST ALT Alkaline Phosphata se Total Protein Albumin Globulin Levetiracetam Pending Blood Type O Positive Rho(D) Type Positive / 4+ Antibody Screen Negative Crossmatch See Detail 12/05/20 12/05/20 03:14 03:14 WBC 7.8 RBC 2.05 L Hgb 7.0 L Hct 21.5 L MCV 104.9 H MCH 34.1 H MCHC 32.6 RDW 23.3 H Plt Count 42 L MPV 11.2 H Neut % (Auto) 42.7 Lymph % (Auto) 33.0 [place] % (Auto) 21.6 Eos % (Auto) 1.7 Baso % (Auto) 0.5 Neut # (Auto) 3.31 Lymph # (Auto) 2.6 [place] # (Auto) 1.7 H Eos # (Auto) 0.1 Baso # (Auto) 0.0 Nucleated RBC % (a uto) 0 Nucleated RBCs # 0.0 PT INR Sodium 135 L Potassium 3.8 Chloride 99 Carbon Dioxide 27 Anion Gap 12.8 BUN 12 Creatinine 2.5 H GFR Calculation Not Reportable Glucose 99 Calculated Osmolal ity 280 L Calcium 8.0 L Phosphorus 2.3 L Magnesium 1.7 Total Bilirubin 7.5 H* AST 96 H ALT 37 Alkaline Phosphata se 98 Total Protein 4.8 L Albumin 2.4 L Globulin 2.4 Levetiracetam Blood Type Rho(D) Type Antibody Screen Crossmatch Vitals: Last Vital Signs Temp 97.9 F 12/05/20 14:00 Pulse 83 12/05/20 14:00 Resp 16 12/05/20 14:00 BP 107/56 12/05/20 14:00 Pulse Ox 100 12/05/20 14:00 Discharge Plan Discharge Patient Disposition: Home Condition: Stable Prescriptions: Continued levetiracetam 750 mg tablet 750 mg PO BID RF: 0 pantoprazole 40 mg tablet,delayed release (DR/EC) 40 mg PO DAILY@08 RF: 0 pravastatin 20 mg tablet 10 mg PO DAILY@17 RF: 0 folic acid 1 mg Tablet 1 mg PO DAILY@08 RF: 0 budesonide-formoterol [Symbicort] 80-4.5 mcg/actuation Hfa Aerosol Inhaler 2 puff INHALATION BID RF: 0 midodrine 5 mg Tablet 10 mg PO TID Qty: 90 RF: 0 lactulose 10 gram/15 mL solution 45 ml PO BID Qty: 0 RF: 0 Xifaxan 550 mg tablet 550 mg PO BID@0800,1700 RF: 0 doxycycline hyclate 100 mg tablet 100 mg PO BID RF: 0 Discharge Orders: Discharge Order (Routine); Ordered 12/05/20 Ordered By: Dandy Santizo Referrals: Jessica Moreira MD [Primary Care Provider] - 4-7 days Discharge Diet: As Directed Discharge Activity: Increase activity as tolerated and Oxygen as instructed Patient Instructions: Opioid Safety Activity Restrictions/Additional Instructions: Continue renal, dialysis diet. Continue fluid restriction. Please resume follow-up with your hemodialysis clinic, continue dialysis on Monday. Resume follow-up with your nephrology specialist. Please have your primary doctor or kidney specialist follow-up blood count, whoever sees you first. Please continue oxygen at home. Do not discontinue oxygen at night. Target oxygen saturation 92%. Increase oxygen flow in case feeling short of breath. Contact your primary doctor in case shortness of breath persists, in case you develop cough, in case you gain weight or there is worsening swelling. Please resume follow-up with your primary care provider, with consideration of follow-up with hepatology specialist. Continue lactulose at home, target 2-3 soft bowel movements per day to prevent ammonia buildup and maintain clear mental functioning. Continue follow-up with Dr. Shukla. Discharge Attestations Time Spent in Discharge Care*: greater than 30 min Status at Discharge: Cognitive status at discharge: cognitively intact, Behavioral status at discharge: cooperative, Quality Metrics Clinical Quality Measures During this hospital stay, did patient experience: None Coding Level of Care Code Acute g FW DC note Diagnoses Anemia D64.9 Liver cirrhosis K74.60 ESRD (end stage renal disease) on dialysis N18.6; Z99.2 Hepatorenal syndrome K76.7
--- NOTE | 2020-12-05 17:36 | PC.NURSE ---
patient and verbalized understanding of discharge instructions.
[2020-12-09 09:32] LABS: Levetiracetam Keppra 30.4 mcg/mL
== END 2020-12-05 17:37 | disposition home or self-care (01) ==
LOC: ER 03:14 → MEDSURG 05:28
PROVIDERS: Admitting Provider Internal Medicine; Emergency Provider Emergency Medicine; PCP Family Medicine; Visit Provider Internal Medicine
DX: N18.6 End stage renal disease (principal); D63.1 Anemia in chronic kidney disease; I12.0 Hypertensive chronic kidney disease with stage 5 chronic kidney disease or end stage renal disease; Z99.2 Dependence on renal dialysis; K76.7 Hepatorenal syndrome; K74.60 Unspecified cirrhosis of liver; I48.91 Unspecified atrial fibrillation; N40.0 Benign prostatic hyperplasia without lower urinary tract symptoms; E78.5 Hyperlipidemia, unspecified; Z86.73 Personal history of transient ischemic attack (TIA), and cerebral infarction without residual deficits
CPT/HCPCS: 36430; 71045; 80053; 80177; 83735; 84100; 85025; 85610; 86850; 86900; 86920; 93005; 99285; G0378; P9016

== ENCOUNTER 2021-01-28 13:39 | Inpatient (IN) | payer OTHER, MEDICARE, SELFPAY ==
[2021-01-28] VITALS (12 sets, daily range): BP systolic 94–127; BP diastolic 46–63; PULSE 88–104; RESP 16–22; TEMP 37.1–38.4; O2SAT 94–100; BMI 25.0
--- NOTE | 2021-01-28 13:48 | ECG_ITS ---
[facility] Test Date: 2021-01-28 Pat Name: Blayne Martinez Department: Room: Gender: Male [place] Ripper: : [id number] Requested By: Kev Elkins Order Number: [id number] Doherty MD: Sintia Chapman M.D. Measurements Intervals [place] Rate: 101 P: 83 ME: 221 QRS: 60 QRSD: 91 T: 70 QT: 351 QTc: 457 Interpretive Statements SINUS TACHYCARDIA WITH FIRST DEGREE AV BLOCK WITH OCCASIONAL SUPRAVENTRICULAR PREMATURE COMPLEXES MINIMAL ST DEPRESSION [0.025+ mV ST DEPRESSION] Compared to ECG 12/05/2020 03:47:26 First degree AV block now present Sinus rhythm no longer present ST (T wave) deviation still present Electronically Signed On 01-29-2021 18:17:35 CDT by Sintia Chapman M.D. [email or web address]
--- NOTE | 2021-01-28 13:48 | XR_ITS ---
WS: [id number] Portable AP upright chest, 01/28/2021 Clinical Data: Cough Comparison: Portable chest, 12/05/2020. Findings: The heart is slightly enlarged. The pulmonary vascularity is minimally increased. No nodule s, masses or effusions are seen. The aortic arch and descending aorta show calcification and tortuosi ty. There is a large bore dialysis catheter entering the right internal jugular vein and ending in th e superior vena cava. There is a small recording device overlying the left lower chest. XR/XR chest 1V portable [id number] Impression: 1. Cardiomegaly and mild pulmonary vascular congestion. 2. Atherosclerosis.
--- NOTE | 2021-01-28 13:49 | ED_ITS ---
HPI - General Adult General: Chief complaint: Altered Mental Status Stated complaint: FEVER/ FATIGUE/ WEAKNESS Time Seen by Provider: 01/28/21 13:45 History of Present Illness: HPI narrative: This patient is a 75-year-old male who presents to the emergency department for mental status changes. Patient does have a history of cirrhosis of the liver and renal failure patient did have dialysis yesterday. Presents to the emergency department today with a fever of 101 and confusion. Discolored urine. Will do medical evaluation treat as needed Onset (ago): unknown Severity: moderate Pain Consistency: constant Exacerbating factors: none Associated symptoms: Reports confusion; Deny chest pain, dyspnea, headache(s), nausea, rash, palpitations or vomiting Review of Systems General: Reports: 10 or more systems reviewed and unremarkable except in HPI and below and ROS unobtainable due to mental status Const: Reports: fever(s); Denies: chills, body aches or fatigue Eyes: Denies: change in vision or blurry vision ENMT: Denies: throat pain, hoarseness or mouth pain Card: Denies: chest pain, palpitations, irregular heart rhythm, edema, swelling of feet/ankles or lightheadedness Resp: Denies: dyspnea, productive cough, non-productive cough, wheezing or pain on inspiration GI: Denies: abdominal pain, nausea or vomiting : Denies: flank pain, dysuria, urinary frequency, urinary urgency or urinary hesitancy Musc: Denies: neck pain, back pain, extremity pain, extremity swelling, joint pain, joint swelling, joint redness, joint warmth or limited range of motion Skin/Breast: Denies: rash, pruritus, erythema or skin tenderness Neuro: Reports: confusion; Denies: headache(s), numbness in extremities or weakness in extremities Psych: Denies: anxiety or depression PFSH ED PFSH: Medical History AAA (abdominal aortic aneurysm) 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 Atrial fibrillation On anticoagulation BPH (benign prostatic hyperplasia) Carotid artery stenosis Diverticulosis Duodenal ulcer Gastritis Hemochromatosis Hiatal hernia History of colon polyps Follow-up colonoscopy in 2023 HTN (hypertension) Hyperlipidemia Internal hemorrhoids Liver, cirrhosis, portal Portal hypertension Status post placement of implantable loop recorder TIA (transient ischemic attack) Surgical History History of cystoscopy History of esophagogastroduodenoscopy (EGD) History of vasectomy S/P discectomy S/P ORIF (open reduction internal fixation) fracture RIGHT HIP Status post colonoscopy with polypectomy Family History Mother Stroke Brother [id number] deficiency Denies family history of Anesthesia complication Bleeding disorder Social History Smoking and tobacco status: never smoked Alcohol intake: never Household members: spouse Marital status: Current occupational status: retired Physical Exam Const: COMMON NORMALS: no acute distress, average body habitus, patient oriented x3, no limitations, healthy appearing, alert and well nourished EXAM LIMITATIONS: altered mental status HENMT: COMMON NORMALS: normocephalic, atraumatic, hearing grossly normal bilaterally, external ears normal, EAC's normal, TM's normal bilaterally, Normal external nose present, Normal nasal mucous membranes and turbinates present, moist oral mucous membranes, oropharynx normal, dentition normal and gingiva normal HEAD & SCALP: normocephalic and atraumatic NOSE: Normal external nose present and Normal nasal mucous membranes and turbinates present EXTERNAL EAR: Yes external ears normal EXTERNAL AUDITORY CANAL: EAC's normal TYMPANIC MEMBRANE: TM's normal bilaterally Neck/C-Spine: COMMON NORMALS: full ROM, no lymphadenopathy, supple, no meningeal signs, no JVD, Thyroid normal and No carotid bruits THYROID: Thyroid normal Chest: COMMONS NORMALS: normal inspection of the chest, normal palpation of entire chest wall, normal inspection of the breasts and normal palpation of the breasts Breast/axilla inspection: Yes normal inspection of the breasts BREAST/AXILLA PALPATION: Yes normal palpation of the breasts Resp: COMMON NORMALS: normal respiratory effort, No retractions, No use of accessory muscles, clear to auscultation bilaterally and percussion normal AUSCULTATION: clear to auscultation bilaterally PERCUSSION: percussion normal Cardio: COMMON NORMALS: no JVD, regular rate, regular rhythm, S1 normal heart sound present, S2 normal heart sound present, No gallops present (Cardio), No clicks present (Cardio), No murmurs present (Cardio), No rub (Cardio) and Peripheral pulses 2+ throughout RATE: regular rate RHYTHM: regular rhythm HEART SOUNDS: S1 normal heart sound present and S2 normal heart sound present PERIPHERAL PULSES: Peripheral pulses 2+ throughout GI: COMMON NORMALS: Normal to inspection, nondistended, normoactive bowel sounds present, Soft to palpation, non-tender, No hepatosplenomegaly present, no masses and no bruits PALPATION: Yes Soft to palpation and Yes No hepatosplenomegaly present : COMMON NORMALS: Yes no CVA tenderness BLADDER/KIDNEY EXAM: Yes no CVA tenderness Back/Pelvis: COMMON NORMALS: no CVA tenderness, thoracic and lumbar spine normal to inspection, no thoracic nor lumbar tenderness, thoraco-lumbar ROM normal and straight leg raise negative bilaterally Extremity: COMMON NORMALS: normal to inspection, full ROM, capillary refill normal, no joint enlargement, no clubbing, cyanosis or edema, no calf tenderness and no pedal edema Neuro: COMMON NORMALS: patient oriented x3 SENSORIUM/ORIENTATION: Yes alert MENINGEAL SIGNS: Yes no meningeal signs Course Reevaluation(s): Reevaluation #1: Patient's blood pressures dropped to 80/46. Will access Alberto catheter in the right chest to start a Levophed drip. This was discussed with both nephrology and hospitalist. Pending patient's transfer. Patient and family state understanding. Patient has sepsis of unknown source. We will continue to monitor patient. Time: 17:36 Consultations: Consultation #1: I did discuss at length with nephrology Dr. Sandhu about accessing patient's Alberto catheter central line in case it is needed to place patient on IV pressors. He agrees. We will continue to monitor patient. Time: 17:10 Consultation #2: I discussed with Dr Guido. About patient. No ICU beds available at this time. He recommends patient be transferred if possible. We will continue to monitor the patient. Patient has had 1 dose of Zosyn and is currently given his vancomycin at this time patient also did receive IV fluid bolus. Time: 17:08 Consultation #3: I did discuss at length with Dr. Zapata hospitalist. She request that we continue work on placement. For transfer due to no ICU beds available. We have contacted around 30 hospitals and all with negative except a s stated no bed availability. Dr. Zapata's been consulted and will continue medical management of this patient due to the critical nature of his illness. She will see patient write additional orders pending patient's transfer with full admission. Time: 20:54 Vital Signs: Vital signs: Vital Signs Temperature 99 F 01/28/21 20:15 Pulse Rate 94 01/28/21 20:15 Respiratory Rate 18 01/28/21 20:15 Blood Pressure 112/57 01/28/21 20:15 Pulse Oximetry 97 01/28/21 20:15 MDM - General Adult MDM Narrative: Medical decision making narrative: This patient is a 75-year-old male who presents to the emergency department for mental status changes. Patient does have a history of cirrhosis of the liver and renal failure patient did have dialysis yesterday. Presents to the emergency department today with a fever of 101 and confusion. Discolored urine. Will do medical evaluation treat as needed I did discuss at length with nephrology Dr. Sandhu about accessing patient's Alberto catheter central line in case it is needed to place patient on IV pressors. He agrees. We will continue to monitor patient. I discussed with Dr Guido. About patient. No ICU beds available at this time. He recommends patient be transferred if possible. We will continue to monitor the patient. Patient has had 1 dose of Zosyn and is currently given his vancomycin at this time patient also did receive IV fluid bolus. Patient's blood pressures dropped to 80/46. Will access Alberto catheter in the right chest to start a Levophed drip. This was discussed with both nephrology and hospitalist. Pending patient's transfer. Patient and family state understanding. Patient has sepsis of unknown source. We will continue to monitor patient. Lab Data: Labs: Lab Results 01/28/21 01/28/21 01/28/21 Range/Units 14:00 14:15 14:30 WBC 16.4 H (4.0-10.0) 10^3/ uL RBC 2.81 L (4.1-5.3) 10^6/u L Hgb 10.1 L (11.7-16.6) g/dL Hct 30.3 L (42.0-52.0) % MCV 107.8 H (80-94) fl MCH 35.9 H (28.0-34.0) pg MCHC 33.3 (30.0-36.0) g/dL RDW 16.5 H (12.1-15.1) % Plt Count 69 L (130-400) 10^3/c mm MPV 10.2 (7.4-10.4) fL Neut % (Auto) 83.6 % Lymph % (Auto) 7.4 % [place] % (Auto) 7.1 % Eos % (Auto) 0.1 % Baso % (Auto) 0.2 % Neut # (Auto) 13.68 H (1.8-7.7) 10^3/u L Lymph # (Auto) 1.2 (0.8-4.8) 10^3/u L [place] # (Auto) 1.2 H (0.2-0.9) 10^3/u L Eos # (Auto) 0.0 (0.0-0.8) 10^3/u L Baso # (Auto) 0.0 (0.0-0.1) 10^3/u L Nucleated RBC % (a uto) 0.2 % Nucleated RBCs # 0.0 /100WBC PT (12.1-14.9) SECO NDS INR (0.8-1.2) APTT (23.9-36.7) SECO NDS Specimen Type Arterial Sample Site Radial, right ABG pH 7.52 H (7.35-7.45) ABG pCO2 32.5 L (35-45) mmHg ABG pO2 65.9 L (80.0-100.0) mmH g ABG HCO3 26.4 H (22-26) mmol/L ABG O2 Saturation 94.9 ABG Base Excess 3.6 H (-2.0-2.0) mmol/ L Avila Test Pos A-a O2 Gradient 5.6 (5-10) mmHg Hematocrit 30.4 L (42-52) % Hgb O2 Saturation 92.3 L (95-100) % Carboxyhemoglobin 1.7 (0.4-20.1) %THgb Methemoglobin 1.1 (0.4-1.5) % Total Hemoglobin 9.9 L (14-18) g/dL Sodium 130.0 L (131-143) mmol/L Potassium 4.5 (3.5-5.0) mmol/L Glucose 86.0 (70-115) mg/dL Ionized Calcium 1.1 (1.1-1.4) mmol/L O2 Delivery Device Room air Director Of Infection Control ID Mb Chloride (98-107) mmol/L Carbon Dioxide (22-29) mmol/L Anion Gap (5-19) BUN (8-23) mg/dL Creatinine (0.7-1.2) mg/dL GFR Calculation Calculated Osmolal ity (285-295) mOsm/k g Lactic Acid (0.5-2.2) mmol/L Calcium (8.5-10.5) mg/dL Total Bilirubin (0.15-1.2) mg/dL AST (0-40) U/L ALT (0-41) U/L Alkaline Phosphata se (40-130) IU/L Ammonia (16-60) umol/L Troponin T Baselin e (0-15) ng/L Troponin T 120 Min lower [place] (0-15) ng/L Delta Troponin T (0-10) ABS# NT-Pro-B Natriuret Pep (0-125) pg/mL Total Protein (6.6-8.7) g/dL Albumin (3.5-5.2) g/dL Globulin (1.3-4.6) g/dL Lipase (13-60) U/L TSH (0.27-4.20) uIU/ mL Urine Color (Yellow) Urine Appearance (CLEAR) Urine pH (5-7) Ur Specific Gravit y (1.005-1.030) Urine Protein (Negative) Urine Glucose (UA) (Normal) Urine Ketones (Negative) Urine Blood (Negative) Urine Nitrate (Negative) Urine Bilirubin (Negative) Urine Urobilinogen (Negative) mg/dL Ur Leukocyte Marcie ase (Negative) Urine RBC (0-2) /hpf Urine WBC (0-5) /hpf Ur Squamous Epith Cells (0-5) /hpf Amorphous Sediment Urine Bacteria (NONE) /hpf Salicylates (3-10) mg/dL Urine Opiates Scre en (Negative) ng/mL Acetaminophen (10-30) ug/mL Ur Barbiturates Sc reen (Negative) ng/mL Ur Phencyclidine S crn (Negative) ng/mL Ur Amphetamines Sc reen (Negative) ng/mL U Benzodiazepines Scrn (Negative) ng/mL Urine Cocaine Scre en (Negative) ng/mL U Marijuana (THC) Screen (Negative) ng/mL Ethyl Alcohol (0-10) mg/dL SARS-CoV-2 Ag (Rap id) Negative (Negative) 01/28/21 01/28/21 01/28/21 Range/Units 14:30 14:30 14:30 WBC (4.0-10.0) 10^3/ uL RBC (4.1-5.3) 10^6/u L Hgb (11.7-16.6) g/dL Hct (42.0-52.0) % MCV (80-94) fl MCH (28.0-34.0) pg MCHC (30.0-36.0) g/dL RDW (12.1-15.1) % Plt Count (130-400) 10^3/c mm MPV (7.4-10.4) fL Neut % (Auto) % Lymph % (Auto) % [place] % (Auto) % Eos % (Auto) % Baso % (Auto) % Neut # (Auto) (1.8-7.7) 10^3/u L Lymph # (Auto) (0.8-4.8) 10^3/u L [place] # (Auto) (0.2-0.9) 10^3/u L Eos # (Auto) (0.0-0.8) 10^3/u L Baso # (Auto) (0.0-0.1) 10^3/u L Nucleated RBC % (a uto) % Nucleated RBCs # /100WBC PT 23.30 H (12.1-14.9) SECO NDS INR 2.02 H (0.8-1.2) APTT 42.4 H (23.9-36.7) SECO NDS Specimen Type Sample Site ABG pH (7.35-7.45) ABG pCO2 (35-45) mmHg ABG pO2 (80.0-100.0) mmH g ABG HCO3 (22-26) mmol/L ABG O2 Saturation ABG Base Excess (-2.0-2.0) mmol/ L Avila Test A-a O2 Gradient (5-10) mmHg Hematocrit (42-52) % Hgb O2 Saturation (95-100) % Carboxyhemoglobin (0.4-20.1) %THgb Methemoglobin (0.4-1.5) % Total Hemoglobin (14-18) g/dL Sodium 128 L (131-143) mmol/L Potassium 4.5 (3.5-5.0) mmol/L Glucose 82 (70-115) mg/dL Ionized Calcium (1.1-1.4) mmol/L O2 Delivery Device Director Of Infection Control ID Chloride 89 L (98-107) mmol/L Carbon Dioxide 23 (22-29) mmol/L Anion Gap 20.5 H (5-19) BUN 25 H (8-23) mg/dL Creatinine 2.9 H (0.7-1.2) mg/dL GFR Calculation Not Reportable Calculated Osmolal ity 269 L (285-295) mOsm/k g Lactic Acid 4.9 H* (0.5-2.2) mmol/L Calcium 8.6 (8.5-10.5) mg/dL Total Bilirubin 7.2 H* (0.15-1.2) mg/dL AST 63 H (0-40) U/L ALT 29 (0-41) U/L Alkaline Phosphata se 124 (40-130) IU/L Ammonia (16-60) umol/L Troponin T Baselin e (0-15) ng/L Troponin T 120 Min lower [place] (0-15) ng/L Delta Troponin T (0-10) ABS# NT-Pro-B Natriuret Pep 2776 H (0-125) pg/mL Total Protein 6.8 (6.6-8.7) g/dL Albumin 2.3 L (3.5-5.2) g/dL Globulin 4.5 (1.3-4.6) g/dL Lipase 96 H (13-60) U/L TSH (0.27-4.20) uIU/ mL Urine Color (Yellow) Urine Appearance (CLEAR) Urine pH (5-7) Ur Specific Gravit y (1.005-1.030) Urine Protein (Negative) Urine Glucose (UA) (Normal) Urine Ketones (Negative) Urine Blood (Negative) Urine Nitrate (Negative) Urine Bilirubin (Negative) Urine Urobilinogen (Negative) mg/dL Ur Leukocyte Marcie ase (Negative) Urine RBC (0-2) /hpf Urine WBC (0-5) /hpf Ur Squamous Epith Cells (0-5) /hpf Amorphous Sediment Urine Bacteria (NONE) /hpf Salicylates (3-10) mg/dL Urine Opiates Scre en (Negative) ng/mL Acetaminophen (10-30) ug/mL Ur Barbiturates Sc reen (Negative) ng/mL Ur Phencyclidine S crn (Negative) ng/mL Ur Amphetamines Sc reen (Negative) ng/mL U Benzodiazepines Scrn (Negative) ng/mL Urine Cocaine Scre en (Negative) ng/mL U Marijuana (THC) Screen (Negative) ng/mL Ethyl Alcohol (0-10) mg/dL SARS-CoV-2 Ag (Rap id) (Negative) 01/28/21 01/28/21 01/28/21 Range/Units 14:30 14:30 14:30 WBC (4.0-10.0) 10^3/ uL RBC (4.1-5.3) 10^6/u L Hgb (11.7-16.6) g/dL Hct (42.0-52.0) % MCV (80-94) fl MCH (28.0-34.0) pg MCHC (30.0-36.0) g/dL RDW (12.1-15.1) % Plt Count (130-400) 10^3/c mm MPV (7.4-10.4) fL Neut % (Auto) % Lymph % (Auto) % [place] % (Auto) % Eos % (Auto) % Baso % (Auto) % Neut # (Auto) (1.8-7.7) 10^3/u L Lymph # (Auto) (0.8-4.8) 10^3/u L [place] # (Auto) (0.2-0.9) 10^3/u L Eos # (Auto) (0.0-0.8) 10^3/u L Baso # (Auto) (0.0-0.1) 10^3/u L Nucleated RBC % (a uto) % Nucleated RBCs # /100WBC PT (12.1-14.9) SECO NDS INR (0.8-1.2) APTT (23.9-36.7) SECO NDS Specimen Type Sample Site ABG pH (7.35-7.45) ABG pCO2 (35-45) mmHg ABG pO2 (80.0-100.0) mmH g ABG HCO3 (22-26) mmol/L ABG O2 Saturation ABG Base Excess (-2.0-2.0) mmol/ L Avila Test A-a O2 Gradient (5-10) mmHg Hematocrit (42-52) % Hgb O2 Saturation (95-100) % Carboxyhemoglobin (0.4-20.1) %THgb Methemoglobin (0.4-1.5) % Total Hemoglobin (14-18) g/dL Sodium (131-143) mmol/L Potassium (3.5-5.0) mmol/L Glucose (70-115) mg/dL Ionized Calcium (1.1-1.4) mmol/L O2 Delivery Device Director Of Infection Control ID Chloride (98-107) mmol/L Carbon Dioxide (22-29) mmol/L Anion Gap (5-19) BUN (8-23) mg/dL Creatinine (0.7-1.2) mg/dL GFR Calculation Calculated Osmolal ity (285-295) mOsm/k g Lactic Acid (0.5-2.2) mmol/L Calcium (8.5-10.5) mg/dL Total Bilirubin (0.15-1.2) mg/dL AST (0-40) U/L ALT (0-41) U/L Alkaline Phosphata se (40-130) IU/L Ammonia 51 (16-60) umol/L Troponin T Baselin e 82 H (0-15) ng/L Troponin T 120 Min lower [place] (0-15) ng/L Delta Troponin T (0-10) ABS# NT-Pro-B Natriuret Pep (0-125) pg/mL Total Protein (6.6-8.7) g/dL Albumin (3.5-5.2) g/dL Globulin (1.3-4.6) g/dL Lipase (13-60) U/L TSH (0.27-4.20) uIU/ mL Urine Color (Yellow) Urine Appearance (CLEAR) Urine pH (5-7) Ur Specific Gravit y (1.005-1.030) Urine Protein (Negative) Urine Glucose (UA) (Normal) Urine Ketones (Negative) Urine Blood (Negative) Urine Nitrate (Negative) Urine Bilirubin (Negative) Urine Urobilinogen (Negative) mg/dL Ur Leukocyte Marcie ase (Negative) Urine RBC (0-2) /hpf Urine WBC (0-5) /hpf Ur Squamous Epith Cells (0-5) /hpf Amorphous Sediment Urine Bacteria (NONE) /hpf Salicylates (3-10) mg/dL Urine Opiates Scre en (Negative) ng/mL Acetaminophen (10-30) ug/mL Ur Barbiturates Sc reen (Negative) ng/mL Ur Phencyclidine S crn (Negative) ng/mL Ur Amphetamines Sc reen (Negative) ng/mL U Benzodiazepines Scrn (Negative) ng/mL Urine Cocaine Scre en (Negative) ng/mL U Marijuana (THC) Screen (Negative) ng/mL Ethyl Alcohol < 10 (0-10) mg/dL SARS-CoV-2 Ag (Rap id) (Negative) 01/28/21 01/28/21 01/28/21 Range/Units 15:30 15:30 19:00 WBC (4.0-10.0) 10^3/ uL RBC (4.1-5.3) 10^6/u L Hgb (11.7-16.6) g/dL Hct (42.0-52.0) % MCV (80-94) fl MCH (28.0-34.0) pg MCHC (30.0-36.0) g/dL RDW (12.1-15.1) % Plt Count (130-400) 10^3/c mm MPV (7.4-10.4) fL Neut % (Auto) % Lymph % (Auto) % [place] % (Auto) % Eos % (Auto) % Baso % (Auto) % Neut # (Auto) (1.8-7.7) 10^3/u L Lymph # (Auto) (0.8-4.8) 10^3/u L [place] # (Auto) (0.2-0.9) 10^3/u L Eos # (Auto) (0.0-0.8) 10^3/u L Baso # (Auto) (0.0-0.1) 10^3/u L Nucleated RBC % (a uto) % Nucleated RBCs # /100WBC PT (12.1-14.9) SECO NDS INR (0.8-1.2) APTT (23.9-36.7) SECO NDS Specimen Type Sample Site ABG pH (7.35-7.45) ABG pCO2 (35-45) mmHg ABG pO2 (80.0-100.0) mmH g ABG HCO3 (22-26) mmol/L ABG O2 Saturation ABG Base Excess (-2.0-2.0) mmol/ L Avila Test A-a O2 Gradient (5-10) mmHg Hematocrit (42-52) % Hgb O2 Saturation (95-100) % Carboxyhemoglobin (0.4-20.1) %THgb Methemoglobin (0.4-1.5) % Total Hemoglobin (14-18) g/dL Sodium (131-143) mmol/L Potassium (3.5-5.0) mmol/L Glucose (70-115) mg/dL Ionized Calcium (1.1-1.4) mmol/L O2 Delivery Device Director Of Infection Control ID Chloride (98-107) mmol/L Carbon Dioxide (22-29) mmol/L Anion Gap (5-19) BUN (8-23) mg/dL Creatinine (0.7-1.2) mg/dL GFR Calculation Calculated Osmolal ity (285-295) mOsm/k g Lactic Acid (0.5-2.2) mmol/L Calcium (8.5-10.5) mg/dL Total Bilirubin (0.15-1.2) mg/dL AST (0-40) U/L ALT (0-41) U/L Alkaline Phosphata se (40-130) IU/L Ammonia (16-60) umol/L Troponin T Baselin e (0-15) ng/L Troponin T 120 Min lower [place] 90.03 H (0-15) ng/L Delta Troponin T 8.03 (0-10) ABS# NT-Pro-B Natriuret Pep (0-125) pg/mL Total Protein (6.6-8.7) g/dL Albumin (3.5-5.2) g/dL Globulin (1.3-4.6) g/dL Lipase (13-60) U/L TSH (0.27-4.20) uIU/ mL Urine Color Dark yellow (Yellow) Urine Appearance Clear (CLEAR) Urine pH 5 (5-7) Ur Specific Gravit y 1.025 (1.005-1.030) Urine Protein 1+ H (Negative) Urine Glucose (UA) Norm (Normal) Urine Ketones 1+ H (Negative) Urine Blood 3+ H (Negative) Urine Nitrate Negative (Negative) Urine Bilirubin 1+ H (Negative) Urine Urobilinogen 1 H (Negative) mg/dL Ur Leukocyte Marcie ase 2+ H (Negative) Urine RBC 5-10 H (0-2) /hpf Urine WBC 5-10 H (0-5) /hpf Ur Squamous Epith Cells 10-15 H (0-5) /hpf Amorphous Sediment Not Reportable Urine Bacteria Trace (NONE) /hpf Salicylates (3-10) mg/dL Urine Opiates Scre en Negative (Negative) ng/mL Acetaminophen (10-30) ug/mL Ur Barbiturates Sc reen Negative (Negative) ng/mL Ur Phencyclidine S crn Negative (Negative) ng/mL Ur Amphetamines Sc reen Negative (Negative) ng/mL U Benzodiazepines Scrn Negative (Negative) ng/mL Urine Cocaine Scre en Negative (Negative) ng/mL U Marijuana (THC) Screen Negative (Negative) ng/mL Ethyl Alcohol (0-10) mg/dL SARS-CoV-2 Ag (Rap id) (Negative) 01/28/21 01/28/21 01/28/21 Range/Units 19:00 19:00 19:00 WBC 24.6 H (4.0-10.0) 10^3/ uL RBC 2.53 L (4.1-5.3) 10^6/u L Hgb 9.2 L (11.7-16.6) g/dL Hct 27.5 L (42.0-52.0) % MCV 108.7 H (80-94) fl MCH 36.4 H (28.0-34.0) pg MCHC 33.5 (30.0-36.0) g/dL RDW 16.6 H (12.1-15.1) % Plt Count 66 L (130-400) 10^3/c mm MPV 10.8 H (7.4-10.4) fL Neut % (Auto) 78.0 % Lymph % (Auto) 6.4 % [place] % (Auto) 11.2 % Eos % (Auto) 0.0 % Baso % (Auto) 0.2 % Neut # (Auto) 19.16 H (1.8-7.7) 10^3/u L Lymph # (Auto) 1.6 (0.8-4.8) 10^3/u L [place] # (Auto) 2.8 H (0.2-0.9) 10^3/u L Eos # (Auto) 0.0 (0.0-0.8) 10^3/u L Baso # (Auto) 0.1 (0.0-0.1) 10^3/u L Nucleated RBC % (a uto) 0.1 % Nucleated RBCs # 0.0 /100WBC PT (12.1-14.9) SECO NDS INR (0.8-1.2) APTT (23.9-36.7) SECO NDS Specimen Type Sample Site ABG pH (7.35-7.45) ABG pCO2 (35-45) mmHg ABG pO2 (80.0-100.0) mmH g ABG HCO3 (22-26) mmol/L ABG O2 Saturation ABG Base Excess (-2.0-2.0) mmol/ L Avila Test A-a O2 Gradient (5-10) mmHg Hematocrit (42-52) % Hgb O2 Saturation (95-100) % Carboxyhemoglobin (0.4-20.1) %THgb Methemoglobin (0.4-1.5) % Total Hemoglobin (14-18) g/dL Sodium 130 L (131-143) mmol/L Potassium 4.6 (3.5-5.0) mmol/L Glucose 78 (70-115) mg/dL Ionized Calcium (1.1-1.4) mmol/L O2 Delivery Device Director Of Infection Control ID Chloride 94 L (98-107) mmol/L Carbon Dioxide 21 L (22-29) mmol/L Anion Gap 19.6 H (5-19) BUN 27 H (8-23) mg/dL Creatinine 3.3 H (0.7-1.2) mg/dL GFR Calculation Not Reportable Calculated Osmolal ity 274 L (285-295) mOsm/k g Lactic Acid (0.5-2.2) mmol/L Calcium 7.7 L (8.5-10.5) mg/dL Total Bilirubin 5.9 H (0.15-1.2) mg/dL AST 67 H (0-40) U/L ALT 27 (0-41) U/L Alkaline Phosphata se 105 (40-130) IU/L Ammonia 56 (16-60) umol/L Troponin T Baselin e (0-15) ng/L Troponin T 120 Min lower [place] (0-15) ng/L Delta Troponin T (0-10) ABS# NT-Pro-B Natriuret Pep (0-125) pg/mL Total Protein 6.0 L (6.6-8.7) g/dL Albumin 2.1 L (3.5-5.2) g/dL Globulin 3.9 (1.3-4.6) g/dL Lipase (13-60) U/L TSH 0.69 (0.27-4.20) uIU/ mL Urine Color (Yellow) Urine Appearance (CLEAR) Urine pH (5-7) Ur Specific Gravit y (1.005-1.030) Urine Protein (Negative) Urine Glucose (UA) (Normal) Urine Ketones (Negative) Urine Blood (Negative) Urine Nitrate (Negative) Urine Bilirubin (Negative) Urine Urobilinogen (Negative) mg/dL Ur Leukocyte Marcie ase (Negative) Urine RBC (0-2) /hpf Urine WBC (0-5) /hpf Ur Squamous Epith Cells (0-5) /hpf Amorphous Sediment Urine Bacteria (NONE) /hpf Salicylates < 0.3 L (3-10) mg/dL Urine Opiates Scre en (Negative) ng/mL Acetaminophen < 5.0 L (10-30) ug/mL Ur Barbiturates Sc reen (Negative) ng/mL Ur Phencyclidine S crn (Negative) ng/mL Ur Amphetamines Sc reen (Negative) ng/mL U Benzodiazepines Scrn (Negative) ng/mL Urine Cocaine Scre en (Negative) ng/mL U Marijuana (THC) Screen (Negative) ng/mL Ethyl Alcohol < 10 (0-10) mg/dL SARS-CoV-2 Ag (Rap id) (Negative) 01/28/21 Range/Units 19:00 WBC (4.0-10.0) 10^3/ uL RBC (4.1-5.3) 10^6/u L Hgb (11.7-16.6) g/dL Hct (42.0-52.0) % MCV (80-94) fl MCH (28.0-34.0) pg MCHC (30.0-36.0) g/dL RDW (12.1-15.1) % Plt Count (130-400) 10^3/c mm MPV (7.4-10.4) fL Neut % (Auto) % Lymph % (Auto) % [place] % (Auto) % Eos % (Auto) % Baso % (Auto) % Neut # (Auto) (1.8-7.7) 10^3/u L Lymph # (Auto) (0.8-4.8) 10^3/u L [place] # (Auto) (0.2-0.9) 10^3/u L Eos # (Auto) (0.0-0.8) 10^3/u L Baso # (Auto) (0.0-0.1) 10^3/u L Nucleated RBC % (a uto) % Nucleated RBCs # /100WBC PT (12.1-14.9) SECO NDS INR (0.8-1.2) APTT (23.9-36.7) SECO NDS Specimen Type Sample Site ABG pH (7.35-7.45) ABG pCO2 (35-45) mmHg ABG pO2 (80.0-100.0) mmH g ABG HCO3 (22-26) mmol/L ABG O2 Saturation ABG Base Excess (-2.0-2.0) mmol/ L [place] Test A-a O2 Gradient (5-10) mmHg Hematocrit (42-52) % Hgb O2 Saturation (95-100) % Carboxyhemoglobin (0.4-20.1) %THgb Methemoglobin (0.4-1.5) % Total Hemoglobin (14-18) g/dL Sodium (131-143) mmol/L Potassium (3.5-5.0) mmol/L Glucose (70-115) mg/dL Ionized Calcium (1.1-1.4) mmol/L O2 Delivery Device Director Of Infection Control ID Chloride (98-107) mmol/L Carbon Dioxide (22-29) mmol/L Anion Gap (5-19) BUN (8-23) mg/dL Creatinine (0.7-1.2) mg/dL GFR Calculation Calculated Osmolal ity (285-295) mOsm/k g Lactic Acid 7.3 H* (0.5-2.2) mmol/L Calcium (8.5-10.5) mg/dL Total Bilirubin (0.15-1.2) mg/dL AST (0-40) U/L ALT (0-41) U/L Alkaline Phosphata se (40-130) IU/L Ammonia (16-60) umol/L Troponin T Baselin e (0-15) ng/L Troponin T 120 Min lower [place] (0-15) ng/L Delta Troponin T (0-10) ABS# NT-Pro-B Natriuret Pep (0-125) pg/mL Total Protein (6.6-8.7) g/dL Albumin (3.5-5.2) g/dL Globulin (1.3-4.6) g/dL Lipase (13-60) U/L TSH (0.27-4.20) uIU/ mL Urine Color (Yellow) Urine Appearance (CLEAR) Urine pH (5-7) Ur Specific Gravit y (1.005-1.030) Urine Protein (Negative) Urine Glucose (UA) (Normal) Urine Ketones (Negative) Urine Blood (Negative) Urine Nitrate (Negative) Urine Bilirubin (Negative) Urine Urobilinogen (Negative) mg/dL Ur Leukocyte Marcie ase (Negative) Urine RBC (0-2) /hpf Urine WBC (0-5) /hpf Ur Squamous Epith Cells (0-5) /hpf Amorphous Sediment Urine Bacteria (NONE) /hpf Salicylates (3-10) mg/dL Urine Opiates Scre en (Negative) ng/mL Acetaminophen (10-30) ug/mL Ur Barbiturates Sc reen (Negative) ng/mL Ur Phencyclidine S crn (Negative) ng/mL Ur Amphetamines Sc reen (Negative) ng/mL U Benzodiazepines Scrn (Negative) ng/mL Urine Cocaine Scre en (Negative) ng/mL U Marijuana (THC) Screen (Negative) ng/mL Ethyl Alcohol (0-10) mg/dL SARS-CoV-2 Ag (Rap id) (Negative) Imaging Data^: CXR: Attestation: I personally reviewed and interpreted this imaging study as follows: Radiologist's impression: Findings: The heart is slightly enlarged. The pulmonary vascularity is minimally increased. No nodules, masses or effusions are seen. The aortic arch and descending aorta show calcification and tortuosity. There is a large bore dialysis catheter entering the right internal jugular vein and ending in the superior vena cava. There is a small recording device overlying the left lower chest. XR/XR chest 1V portable [id number] Impression: 1. Cardiomegaly and mild pulmonary vascular congestion. 2. Atherosclerosis. EKG Data^: EKG 1: Attestation: I personally reviewed and interpreted this EKG as follows: EKG interpretation date: 01/28/21 EKG interpretation time: 14:26 Prior EKG tracings: available for review Interpretation: Sinus tachycardia with first-degree AV block heart rate 101 nonspecific EKG changes. Computer generated interpretation: Head CT 01/28/21 13:51 IMPRESSION: 1. No acute intracranial hemorrhage or edema. 2. Mild cerebral and cerebellar atrophy. Chest X-Ray 01/28/21 16:18 IMPRESSION: Borderline cardiomegaly with mild pulmonary vascular congestion. EKG 2: Attestation: I personally reviewed and interpreted this EKG as follows: EKG interpretation date: 01/28/21 EKG interpretation time: 16:07 Prior EKG tracings: available for review Computer generated interpretation: Head CT 01/28/21 13:51 IMPRESSION: 1. No acute intracranial hemorrhage or edema. 2. Mild cerebral and cerebellar atrophy. Chest X-Ray 01/28/21 16:18 IMPRESSION: Borderline cardiomegaly with mild pulmonary vascular congestion. Atrial fibrillation with rapid ventricular response. Discharge Plan Discharge Patient Disposition: Xfer Short-Term Hosp Clinical Impression: Sepsis, Altered mental status, Generalized weakness, ESRD (end stage renal disease) on dialysis, Liver cirrhosis, Hepatorenal syndrome, Acute UTI Condition: Stable Referrals: Jessica Moreira MD [Primary Care Provider] - Coding Level of Care Code ED Nailing Machine Feeder for Chg Fwd Exam Comprehensive
--- NOTE | 2021-01-28 13:51 | CT_ITS ---
WS: [id number] CT HEAD NONCONTRAST HISTORY: Confusion TECHNIQUE: Contiguous axial imaging performed through the brain in 2.5 mm imaging. Bone and soft tiss ue windows. Sagittal and coronal reformats reviewed. All CT scans at [facility] use at le ast one of these dose optimization techniques: automated exposure control; mA and/or kV adjustment pe r patient size (includes targeted exams where dose is matched to clinical indication); or iterative r econstruction. DLP: 952.05 mGy.cm COMPARISON: 10/21/2020 No acute intracranial hemorrhage, midline shift or mass effect. Mild cerebral and cerebellar atrophy. No prior infarcts. Ventricles: Normal size with no hydrocephalus. Paranasal sinuses: As visualized are clear. Mastoid air cells: Well pneumatized. Calvarium and scalp: Skull is intact with no soft tissue edema or swelling. CT/CT head wo con* [id number] IMPRESSION: 1. No acute intracranial hemorrhage or edema. 2. Mild cerebral and cerebellar atrophy.
[2021-01-28 14:16] LABS: ABG PCO2 32.5 mmHg (35-45); ABG PH Result 7.52 (7.35-7.45); Alveolar-Arterial Oxygen Gradi 5.6 mmHg (5-10); Arterial Blood Gas Hematocrit 30.4 % (42-52); Base Excess ABG 3.6 mmol/L (-2.0-2.0); Blood Gas Allen Test Pos; Blood Gas Operator Identificat MB; Blood Gas Sample Site Radial, right; Blood Gas Sample Type Arterial; Carboxyhemoglobin 1.7 %THgb (0.4-20.1); HCO3 ABG 26.4 mmol/L (22-26); HGB O2 Sat 92.3 % (95-100); Ionized Calcium Level - ABG 1.1 mmol/L (1.1-1.4); Methemoglobin 1.1 % (0.4-1.5); Oxygen Device ROOM AIR; Oxygen Saturation ABG 94.9; PO2 ABG 65.9 mmHg (80.0-100.0); Potassium Level - ABG 4.5 mmol/L (3.5-5.0); Total Hemoglobin 9.9 g/dL (14-18)
[2021-01-28 14:41] LABS: Basophils % 0.2 %; Eosinophils % 0.1 %; Hematocrit 30.3 % (42.0-52.0); Hemoglobin 10.1 g/dL (11.7-16.6); Lymphocytes # 1.2 10^3/uL (0.8-4.8); Lymphocytes % 7.4 %; Mean Corpuscular HGB Conc 33.3 g/dL (30.0-36.0); Mean Corpuscular Hemoglobin 35.9 pg (28.0-34.0); Mean Corpuscular Volume 107.8 fl (80-94); Mean Platelet Volume 10.2 fL (7.4-10.4); Monocytes # 1.2 10^3/uL (0.2-0.9); Monocytes % 7.1 %; Neutrophils # 13.68 10^3/uL (1.8-7.7); Neutrophils % 83.6 %; Nucleated Red Blood Cells % 0.2 %; Platelet Count 69 10^3/cmm (130-400); Red Blood Count 2.81 10^6/uL (4.1-5.3); Red Cell Distribution Width 16.5 % (12.1-15.1); White Blood Count 16.4 10^3/uL (4.0-10.0)
--- NOTE | 2021-01-28 14:50 | PC.PHAR ---
PTS [facility] VERIFIED THE PTS MEDICATIONS-[facility] MED LIST HAS MEDS THAT HAVE BEEN DCED STATES THE MEDICATIONS ENTERED ARE THE ONLY MEDS THE PT TAKES-
[2021-01-28 14:52] LABS: INR 2.02 (0.8-1.2)
[2021-01-28 14:53] LABS: Partial Thromboplastin Time 42.4 SECONDS (23.9-36.7)
[2021-01-28 15:06] LABS: Ammonia 51 umol/L (16-60)
[2021-01-28] MEDS: sodium chloride 0.9% 500 ML IV (15:06)
[2021-01-28] MEDS: ketorolac 30 mg/mL INJ 15 MG IVP (15:06)
[2021-01-28 15:11] LABS: Troponin(5th) Baseline 82 ng/L (0-15)
[2021-01-28 15:13] LABS: Lactic Sepsis W/Reflex 4.9 mmol/L (0.5-2.2)
[2021-01-28 15:21] LABS: Alanine Aminotransferase 29 U/L (0-41); Albumin Level 2.3 g/dL (3.5-5.2); Alkaline Phosphatase 124 IU/L (40-130); Anion Gap 20.5 (5-19); Aspartate Amino Transferase 63 U/L (0-40); Blood Urea Nitrogen 25 mg/dL (8-23); Calcium 8.6 mg/dL (8.5-10.5); Carbon Dioxide 23 mmol/L (22-29); Chloride 89 mmol/L (98-107); Globulin 4.5 g/dL (1.3-4.6); Glucose 82 mg/dL (65-115); Lipase 96 U/L (13-60); NT Pro B Type Natriuretic Pept 2776 pg/mL (0-125); Osmolality Calculated 269 mOsm/kg (285-295); Potassium 4.5 mmol/L (3.5-5.1); Sodium 128 mmol/L (136-145); Total Protein 6.8 g/dL (6.6-8.7)
[2021-01-28 15:31] LABS: SARS Covid-2 Antigen Negative (Negative)
[2021-01-28 15:39] LABS: Total Bilirubin 7.2 mg/dL (0.15-1.2)
--- NOTE | 2021-01-28 15:48 | ECG_ITS ---
[facility] Test Date: 2021-01-28 Pat Name: Blayne Martinez Department: Room: Gender: Male Galley Cook: : 1945 Requested By: Kev Elkins Order Number: [id number] Chas MD: Sintia Chapman M.D. Measurements Intervals [place] Rate: 101 P: PA: QRS: 60 QRSD: 84 T: 68 QT: 359 QTc: 467 Interpretive Statements SINUS TACHYCARDIA WITH FIRST DEGREE AV BLOCK WITH OCCASIONAL SUPRAVENTRICULAR PREMATURE COMPLEXES MODERATE ST DEPRESSION [0.05+ mV ST DEPRESSION] Compared to ECG 01/28/2021 14:26:12 Sinus tachycardia no longer present First degree AV block no longer present ST (T wave) deviation still present Electronically Signed On 01-29-2021 18:26:24 CDT by Sintia Chapman M.D. [id number]
[2021-01-28] MEDS: sodium chloride 0.9% 1,000 ML 999 ML IV ×2 (16:06→17:46)
[2021-01-28] MEDS: piperacillin-tazobactam 3.375 GM in sodium chloride 0.9% (plus) 50 ML IV (16:07)
--- NOTE | 2021-01-28 16:18 | XRR_ITS ---
PROCEDURE INFORMATION: Exam: XR Chest Exam date and time: 01/28/2021 4:18 PM Age: 75 years old Clinical indication: Fever, fatigue, weakness and cough. TECHNIQUE: Imaging protocol: XR of the chest. Views: 1 view. COMPARISON: CR XR chest 1V portable [id number] 01/28/2021 1:46 PM FINDINGS: Tubes, catheters and devices: A right dual lumen central venous access device is present with tips in the SVC and at the SVC/right atrial junction. A loop recorder overlies the left chest. Lungs: Mild pulmonary vascular congestion. No pulmonary consolidation. Pleural spaces: No pleural effusion.; No pneumothorax. Heart/Mediastinum: Borderline cardiomegaly. No gross evidence of pneumomediastinum. Bones/joints: No gross fracture. XR/XR chest 1V portable [id number] IMPRESSION: Borderline cardiomegaly with mild pulmonary vascular congestion.
[2021-01-28 16:23] LABS: Reflex Lactate Order REFLEX LACTIC ORDERD
[2021-01-28 16:31] LABS: Amphetamines Screen Urine Negative (Negative); Barbiturates Screen Urine Negative (Negative); Benzodiazepines Screen Urine Negative (Negative); Cocaine Screen Urine Negative (Negative); Opiate Screen Urine Negative (Negative); PCP Screen Urine Negative (Negative); THC Screen Urine Negative (Negative)
[2021-01-28 16:47] LABS: Alcohol Level < 10 mg/dL (0-10)
[2021-01-28] MEDS: vancomycin 1,000 MG in sodium chloride 0.9% 250 ML 250 MG IV (16:56)
--- NOTE | 2021-01-28 17:22 | P.CONIM_ITS ---
Providers/Reason For Consult Consulting Physician/Specialty*: audi price md/ telenephrology Reason for Consult*: ESRD care Requesting Physician: hospitalist service Primary Care Provider: Jessica Moreira MD History of Present Illness History of Present Illness Blayne Martinez is a 75 year old male h/o liver cirrhosis from hemochromatosis- pt was not accepted for a liver transplant, a fib, HRS, moderate , portal HTN, anemia- gi bleed froma duodenal ulcer, ESRD on HD MWF, AAA, and gskei-1-kzsxambvrg deficiency. Pt here w/ fevers, AMS, lethargy, poor po intake, and dysuria. In Er pt found to be in septic shock. Pt given fluids and being started on abx and pressers. Renal called to consult for ESRD care. Review of Systems General: Reports: 10 or more systems reviewed and unremarkable except in HPI and below Narrative: weak, fevers, confused, poor appetite, no sob, + palps, no cp, + cortes, no diarrhea Meds/Allergies Home Medications and Allergies Home Medications Medication Instructions Recorded Confirmed Last Taken Type pantoprazole 40 mg tablet,delayed 40 mg PO DAILY@08 tab 06/17/19 01/28/21 01/28/21 08:00 History release pravastatin 20 mg tablet 10 mg PO DAILY@17 tab 06/18/19 01/28/21 01/27/21 History folic acid 1 mg PO DAILY@08 12/31/19 01/28/21 01/28/21 08:00 History Xifaxan 550 mg PO BID@0800,1700 10/21/20 01/28/21 01/28/21 08:00 History budesonide-formoterol [Symbicort] 2 puff INHALATION BID 11/03/20 01/28/21 12/02/20 History midodrine 10 mg PO TID #90 tab 11/19/20 01/28/21 01/28/21 08:00 Rx spironolactone 50 mg tablet 50 mg PO QAM 01/15/21 01/28/21 01/28/21 History lactulose 45 ml PO BID PRN 01/28/21 01/28/21 Unknown History Allergies Allergy/AdvReac Type Severity Reaction Status Date / Time No Known Allergies Allergy Verified 01/28/21 14:50 PFSH Acute PFSH: Medical History AAA (abdominal aortic aneurysm) Mzgml-0-kxkvwvesubw deficiency carrier Atrial fibrillation On anticoagulation BPH (benign prostatic hyperplasia) Carotid artery stenosis Diverticulosis Duodenal ulcer Gastritis Hemochromatosis Hiatal hernia History of colon polyps Follow-up colonoscopy in 2023 HTN (hypertension) Hyperlipidemia Internal hemorrhoids Liver, cirrhosis, portal Portal hypertension Status post placement of implantable loop recorder TIA (transient ischemic attack) Surgical History History of cystoscopy History of esophagogastroduodenoscopy (EGD) History of vasectomy S/P discectomy S/P ORIF (open reduction internal fixation) fracture RIGHT HIP Status post colonoscopy with polypectomy Family History Mother Stroke Brother Awyqn-0-xqsyitiecdi deficiency Denies family history of Anesthesia complication Bleeding disorder Social History Smoking and tobacco status: never smoked Alcohol intake: never Household members: spouse Marital status: Current occupational status: retired Vitals/I&O/Wt Last Vital Signs Temp 99 F 01/28/21 16:13 Pulse 95 01/28/21 16:57 Resp 20 H 01/28/21 16:57 BP 99/46 01/28/21 16:57 Pulse Ox 100 01/28/21 16:57 01/28/21 01/28/21 01/28/21 06:59 14:59 22:59 Intake Total 550 / 550 Balance 550 / 550 Weight last 48 hrs Weight 86.183 kg Physical Exam Narrative: EXAM NARRATIVE: elderly, ill appearing man, NARD, hypotensive in bed vs noted heent- nc/at, eomi, icteric neck - no jvp lungs clear b/l heart reg, no rub, +ANG abd soft, nt, nd, +BS ext no edema neuro- a,a, o x 2 dialysis access-rt ant chest wall- not tender skin- yellow Data Micro: Micro: Microbiology 01/28/21 14:30 Blood Culture - Pr eliminary Blood SPECIMEN COLLEC COREEN A&P Additional A&P Information 75 tr old man hemochromatosis, a fib, duodenal ulcer, Grade 3/4 diastolic dysfunction, mild to moderate , ESRD from HRS. 1. sepsis- hypotension, AMS, fevers, leukokocytosis- marin culture -broad spectrum abx, gentle ivf, pressers as needed - i am concerned for a dialysis catheetr infection- f/u blood cx- may need dialysis catheter removed -u/a w 3+ blood, 5-10 rbc and wbc, 10-15 sq epi cells 2. ESRD- no emergent need for HD today -monitor k, volume status -i am concerned for a dialysis catheter infection 3.hgb 10- likely hemoconcentrated- b/l hgb closer to 7 4. chronic thrombocytopenia from liver disease/ cirrhosis 5. acid/ base status- resp alkalosis w/ lactic acidosis of sepsis- monitor w/ ivf -lactate 4.9 6. hyponatremia- likely from ESRD, volume depletion - monitor w/ fluids -check tsh and cortisol levels 6. diastolic dysfunction and mild to mod on echo- appears dry now- monitor pt seen and examined w/ RN- telehealth visit informed consent for telehealth obtained -discussed w/ pt, RN, and pts time spent 55 minutes Consult Attestations Medical Necessity Statement: fevers, sepsis, esrd Time Spent in Patient Care: Greater than 35 minutes Coding Level of Care Code Acute Traffic Control Flagger for Pillo Edwards
[2021-01-28 17:25] LABS: Add Urine Microscopic? YES; Bilirubin Urine 1+ (Negative); Blood Urine 3+ (Negative); Glucose Urine UA Norm (Normal); Ketones Urine 1+ (Negative); Leukocyte Esterase Urine 2+ (Negative); Nitrate Urine Negative (Negative); Protein Urine 1+ (Negative); Specific Gravity, Urine 1.025 (1.005-1.030); Urine Appearance Clear (CLEAR); Urine Color Dark Yellow (Yellow); Urobilinogen Urine 1 mg/dL (Negative); pH Urine 5 (5-7)
[2021-01-28 17:26] LABS: Add Urine Culture? Yes; Bacteria Urine TRACE /hpf
[2021-01-28 19:15] LABS: Basophils # 0.1 10^3/uL (0.0-0.1); Basophils % 0.2 %; Hematocrit 27.5 % (42.0-52.0); Hemoglobin 9.2 g/dL (11.7-16.6); Lymphocytes # 1.6 10^3/uL (0.8-4.8); Lymphocytes % 6.4 %; Mean Corpuscular HGB Conc 33.5 g/dL (30.0-36.0); Mean Corpuscular Hemoglobin 36.4 pg (28.0-34.0); Mean Corpuscular Volume 108.7 fl (80-94); Mean Platelet Volume 10.8 fL (7.4-10.4); Monocytes # 2.8 10^3/uL (0.2-0.9); Monocytes % 11.2 %; Neutrophils # 19.16 10^3/uL (1.8-7.7); Nucleated Red Blood Cells % 0.1 %; Platelet Count 66 10^3/cmm (130-400); Positive M 1; Red Blood Count 2.53 10^6/uL (4.1-5.3); Red Cell Distribution Width 16.6 % (12.1-15.1); White Blood Count 24.6 10^3/uL (4.0-10.0)
[2021-01-28 19:40] LABS: Ammonia 56 umol/L (16-60)
[2021-01-28 19:44] LABS: Lactic Sepsis W/Reflex 7.3 mmol/L (0.5-2.2)
--- NOTE | 2021-01-28 19:48 | ECG_ITS ---
[facility] Test Date: 2021-01-28 Pat Name: Blayne Martinez Department: Room: Gender: Male Transport Manager: : 1945 Requested By: Kev Elkins Order Number: [id number] Chas MD: Alyson Turner M.D. Measurements Intervals [place] Rate: 92 P: DC: QRS: 56 QRSD: 91 T: 61 QT: 371 QTc: 461 Interpretive Statements Sinus rhythm with a first-degree AV block and PACs. ABNORMAL RHYTHM ECG Compared to ECG 01/28/2021 16:07:09 ST (T wave) deviation no longer present Electronically Signed On 01-29-2021 19:38:56 CDT by Alyson Turner M.D. [id number]
[2021-01-28 19:52] LABS: Troponin 5 2HR 90.03 ng/L (0-15)
[2021-01-28 19:57] LABS: Troponin 5 2HR Delta 8.03 ABS# (0-10)
[2021-01-28 20:01] LABS: Acetaminophen < 5.0 ug/mL (10-30); Alanine Aminotransferase 27 U/L (0-41); Albumin Level 2.1 g/dL (3.5-5.2); Alcohol Level < 10 mg/dL (0-10); Alkaline Phosphatase 105 IU/L (40-130); Anion Gap 19.6 (5-19); Aspartate Amino Transferase 67 U/L (0-40); Blood Urea Nitrogen 27 mg/dL (8-23); Calcium 7.7 mg/dL (8.5-10.5); Carbon Dioxide 21 mmol/L (22-29); Chloride 94 mmol/L (98-107); Globulin 3.9 g/dL (1.3-4.6); Glucose 78 mg/dL (65-115); Osmolality Calculated 274 mOsm/kg (285-295); Potassium 4.6 mmol/L (3.5-5.1); Salicylate < 0.3 mg/dL (3-10); Sodium 130 mmol/L (136-145); Thyroid Stimulating Hormone 0.69 uIU/mL (0.27-4.20); Total Bilirubin 5.9 mg/dL (0.15-1.2)
[2021-01-28 20:53] LABS: Reflex Lactate Order REFLEX LACTIC ORDERD
[2021-01-28] MEDS: sodium chloride 0.9% 1,000 ML 125 ML IV (21:05)
[2021-01-28 21:12] LABS: Troponin 5 6HR 90.21 ng/L (0-15); Troponin 5 6HR Delta 8.21 ng/L (0-12)
[2021-01-28 21:29] LABS: ABG PCO2 31.9 mmHg (35-45); ABG PH Result 7.42 (7.35-7.45); Arterial Blood Gas Hematocrit 28.8 % (42-52); Blood Gas Allen Test Pos; Blood Gas Sample Site Radial, right; Blood Gas Sample Type Arterial; HCO3 ABG 20.8 mmol/L (22-26); Oxygen Device ROOM AIR
--- NOTE | 2021-01-28 21:45 | P.HP_ITS ---
Providers/Chief Complaint Admitting Physician: Jodi Primary Care Provider: Jessica Moreira MD Chief Complaint: FEVER/ FATIGUE/ WEAKNESS History of Present Illness At the time of this documentaion, this note is serving as a consultation for patient residing in the emergency room. Should an ICU bed become available here and he is able to be admitted to our facility, this note will serve as history and physical exam for this stay. Blayne Martinez is a 75 year old male who presented to the emergency room with chief complaint of low blood pressures and being less responsive as well as developing fever. 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 He has been deemed not a suitable candidate for liver or renal transplant. He has had issues with anasarca in general, hepatic encephalopathy treated with rifaximin, hepatorenal syndrome, hyperbilirubinemia, hypoproteinemia, coagulopathy, bleeding, thrombocytopenia. In addition to these medical issues he has atrial fibrillation, aortic stenosis and other chronic conditions as noted below. According to the , he was started on midodrine in the recent past. He has also been receiving some type of an injection at hemodialysis. She is not sure what that is, possibly something to raise his blood pressure or some type of diuretic. He has been started back on spironolactone with improvement in his blood pressures and has lost approximately 42 pounds of fluid over the last few weeks. While he historically has had high blood pressure he has been dealing with low blood pressures of late. From what she can tell me he had been running blood pressures 100s-110s systolic, but has been lower lately with times blood pressures have been 80s-90s systolic. This has been especially true on hemodialysis days. He goes to dialysis on Wednesdays and Fridays. Yesterday when he came home from dialysis he seemed a little bit confused and when trying to walk into the house was unsteady on his feet. He was dizzy at the time. She managed to get him into the house and into his hospital bed. He was not acting quite right. At the time his blood pressures by her measurements were in the 80s systolic. He slept a lot yesterday. At that time he would sti ll talk to her. Today he was less responsive. She monitored his blood pressures and temperatures overnight and today had a fever up to 101.2. At one point he complained of some upper abdominal pain but has not really had other noted complaints. No increased stool output. No lower abdominal pain. No respiratory symptoms to speak of. They did have some family or friends visit on Monday who had traveled out [place]. None of those people have reported being sick. No other specifically known Covid contacts. He was vaccinated fully earlier this year. She was also. On arrival here patient is fever was 101.1. It was 104 initial blood pressure was 127/63. Blood pressure dropped into the 80s systolic at 1 point in time and he was put on Levophed. He did receive 1500 cc of normal saline via bolus infusion and continues on fluids at a lower rate to complete his 30 cc/kg fluid administration given his significant volume impacted comorbid medical conditions. Initial lactic acid was 4.9 with a second lactic acid at 7.3. No hypoxemia was reported. White blood count was 16,000 with a left shift and increased to 25,000 on repeat check. He was covered empirically with Zosyn and vancomycin. Nephrology has seen him. Beyond symptoms mentioned he has no specific complaints or definitive source of infection identified. He does not generally make urine. Urinalysis appears to be concentrated specimen consistent with this so difficult to ascertain if active infection. Chest x-ray did not show any infiltrative process. On examination, abdomen is unremarkable. He does have a dialysis catheter in his right upper chest and an implanted loop recorder in his left chest. Neither wit h obvious external signs of infection. Overall concern is for bacterial infection with severe sepsis and possibility of septic shock though comorbid medical conditions, baseline vital signs, and significant reported volume losses of late with adjustments in management make it difficult to interpret. With pressor support and need for scheduled dialysis, he requires ICU level care currently. We do not have a bed nor presently definitive timeline for when one will be available. Review of Systems Const: Reports: fever(s), chills, change in appetite and fatigue Eyes: Reports: yellow eyes ENMT: Reports: nasal congestion; Denies: throat pain Card: Reports: edema, lightheadedness and dyspnea on exertion; Denies: chest pain Resp: Denies: productive cough or non-productive cough GI: Reports: heartburn; Denies: vomiting, hematemesis, diarrhea, constipation, hematochezia or melena : Reports: other (does not make much urine at all, usually dark urine) Musc: Reports: muscle weakness; Denies: joint redness Skin/Breast: Reports: dry skin; Denies: new lesions Neuro: Reports: weakness in extremities, lack of coordination and difficulty walking; Denies: Slurred speech present Psych: Reports: sleeping more Shai/Lymph: Denies: easy bleeding Medications/Allergies Home Medications Medication Instructions Recorded Confirmed Last Taken Type pantoprazole 40 mg tablet,delayed 40 mg PO DAILY@08 tab 06/17/19 01/28/21 01/28/21 08:00 History release pravastatin 20 mg tablet 10 mg PO DAILY@17 tab 06/18/19 01/28/21 01/27/21 History folic acid 1 mg PO DAILY@08 12/31/19 01/28/21 01/28/21 08:00 History Xifaxan 550 mg PO BID@0800,1700 10/21/20 01/28/21 01/28/21 08:00 History budesonide-formoterol [Symbicort] 2 puff INHALATION BID 11/03/20 01/28/21 12/02/20 History midodrine 10 mg PO TID #90 tab 11/19/20 01/28/21 01/28/21 08:00 Rx spironolactone 50 mg tablet 50 mg PO QAM 01/15/21 01/28/21 01/28/21 History lactulose 45 ml PO BID PRN 01/28/21 01/28/21 Unknown History Allergies Allergy/AdvReac Type Severity Reaction Status Date / Time No Known Allergies Allergy Verified 01/28/21 14:50 PFSH Acute PFSH: Medical History (Updated 01/29/21 @ 04:07 by Teresa Zapata MD) AAA (abdominal aortic aneurysm) Abnormal 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 Anemia Aortic stenosis Atrial fibrillation Not on anticoagulation due to history of bleeding, anemia BPH (benign prostatic hyperplasia) Carotid artery stenosis COVID-19 vaccine administered 2 doses Diverticulosis Duodenal ulcer ESRD (end stage renal disease) on dialysis Gastritis Hemochromatosis Hepatic encephalopathy Hepatorenal syndrome Hiatal hernia History of colon polyps Follow-up colonoscopy in 2023 HTN (hypertension) Hyperlipidemia Internal hemorrhoids Liver, cirrhosis, 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, not a candidate for liver or kidney transplant per [facility] evaluation Portal hypertension Status post placement of implantable loop recorder Thrombocytopenia TIA (transient ischemic attack) Surgical History History of cystoscopy History of esophagogastroduodenoscopy (EGD) History of vasectomy S/P discectomy S/P ORIF (open reduction internal fixation) fracture RIGHT HIP Status post colonoscopy with polypectomy Family History Mother Stroke Brother Wlfem-[id number] deficiency Denies family history of Anesthesia complication Bleeding disorder Social History Smoking and tobacco status: never smoked Alcohol intake: never Household members: spouse Marital status: Current occupational status: retired Vitals/I&O/Wt Last Vital Signs Temp 98.8 F 01/28/21 21:08 Pulse 91 01/28/21 21:08 Resp 16 01/28/21 21:08 BP 115/63 01/28/21 21:08 Pulse Ox 95 01/28/21 21:08 01/28/21 01/28/21 01/28/21 06:59 14:59 22:59 Intake Total 1626.506 / 1626.506 Balance 1626.506 / 1626.506 Weight last 48 hrs Weight 86.183 kg Physical Exam Narrative: EXAM NARRATIVE: Constitutional: Initially asleep but arousable and answers simple questions, ill-appearing HEENT: Normocephalic, icteric sclera, nasopharynx is clear, oropharynx with dry mucous membranes Neck: Supple Respiratory: Tachypneic mildly, clear anteriorly, decreased both bases, no rales rhonchi or wheezes noted Cardiovascular: Irregular rhythm, 2/6 holosystolic murmur, equal radial pulses and dorsalis pedis pulses bilaterally, capillary refill 2 to 3 seconds Abdomen: Soft, nondistended, no tenderness, no rebound or guarding, no masses, positive bowel sounds : Normal external genitalia Extremities: Trace pitting edema primarily at the ankles, no calf tenderness, no swollen, erythematous or warm joints noted Skin: Very dry all over, dusky color, no large bruises Neuro: Speech clear, face symmetric, moves all extremities, no abnormal movements Psych: When interacts seems appropriate but sluggish Data : 01/28/21 19:00 01/28/21 19:00 Other Labs: Laboratory Results WBC 24.6 10^3/uL (4.0-10.0) H 01/28/21 19:00 RBC 2.53 10^6/uL (4.1-5.3) L 01/28/21 19:00 Hgb 9.2 g/dL (11.7-16.6) L 01/28/21 19:00 Hct 27.5 % (42.0-52.0) L 01/28/21 19:00 MCV 108.7 fl (80-94) H 01/28/21 19:00 MCH 36.4 pg (28.0-34.0) H 01/28/21 19:00 MCHC 33.5 g/dL (30.0-36.0) 01/28/21 19:00 RDW 16.6 % (12.1-15.1) H 01/28/21 19:00 Plt Count 66 10^3/cmm (130-400) L 01/28/21 19:00 MPV 10.8 fL (7.4-10.4) H 01/28/21 19:00 Neut % (Auto) 78.0 % 01/28/21 19:00 Lymph % (Auto) 6.4 % 01/28/21 19:00 [place] % (Auto) 11.2 % 01/28/21 19:00 Eos % (Auto) 0.0 % 01/28/21 19:00 Baso % (Auto) 0.2 % 01/28/21 19:00 Neut # (Auto) 19.16 10^3/uL (1.8-7.7) H 01/28/21 19:00 Lymph # (Auto) 1.6 10^3/uL (0.8-4.8) 01/28/21 19:00 [place] # (Auto) 2.8 10^3/uL (0.2-0.9) H 01/28/21 19:00 Eos # (Auto) 0.0 10^3/uL (0.0-0.8) 01/28/21 19:00 Baso # (Auto) 0.1 10^3/uL (0.0-0.1) 01/28/21 19:00 Nucleated RBC % (auto) 0.1 % 01/28/21 19:00 Nucleated RBCs # 0.0 /100WBC 01/28/21 19:00 PT 23.30 SECONDS (12.1-14.9) H 01/28/21 14:30 INR 2.02 (0.8-1.2) H 01/28/21 14:30 APTT 42.4 SECONDS (23.9-36.7) H 01/28/21 14:30 Specimen Type Arterial 01/28/21 21:20 Sample Site Radial, right 01/28/21 21:20 ABG pH 7.42 (7.35-7.45) 01/28/21 21:20 ABG pCO2 31.9 mmHg (35-45) L 01/28/21 21:20 ABG pO2 80.0 mmHg (80.0-100.0) 01/28/21 21:20 ABG HCO3 20.8 mmol/L (22-26) L 01/28/21 21:20 ABG O2 Saturation 94.9 01/28/21 14:00 ABG Base Excess -3.0 mmol/L (-2.0-2.0) L 01/28/21 21:20 [place] Test Pos 01/28/21 21:20 A-a O2 Gradient 5.6 mmHg (5-10) 01/28/21 14:00 Hematocrit 28.8 % (42-52) L 01/28/21 21:20 Hgb O2 Saturation 92.3 % (95-100) L 01/28/21 14:00 Carboxyhemoglobin 1.7 %THgb (0.4-20.1) 01/28/21 14:00 Methemoglobin 1.1 % (0.4-1.5) 01/28/21 14:00 Total Hemoglobin 9.9 g/dL (14-18) L 01/28/21 14:00 Sodium 130.0 mmol/L (131-143) L 01/28/21 14:00 Potassium 4.5 mmol/L (3.5-5.0) 01/28/21 14:00 Glucose 86.0 mg/dL (70-115) 01/28/21 14:00 Ionized Calcium 1.1 mmol/L (1.1-1.4) 01/28/21 14:00 O2 Delivery Device Room air 01/28/21 21:20 Mathematical Scientist ID Hinja 01/28/21 21:20 Sodium 130 mmol/L (136-145) L 01/28/21 19:00 Potassium 4.6 mmol/L (3.5-5.1) 01/28/21 19:00 Chloride 94 mmol/L (98-107) L 01/28/21 19:00 Carbon Dioxide 21 mmol/L (22-29) L 01/28/21 19:00 Anion Gap 19.6 (5-19) H 01/28/21 19:00 BUN 27 mg/dL (8-23) H 01/28/21 19:00 Creatinine 3.3 mg/dL (0.7-1.2) H 01/28/21 19:00 GFR Calculation Not Reportable 01/28/21 19:00 Glucose 78 mg/dL (65-115) 01/28/21 19:00 Calculated Osmolality 274 mOsm/kg (285-295) L 01/28/21 19:00 Lactic Acid 7.3 mmol/L (0.5-2.2) H* 01/28/21 19:00 Calcium 7.7 mg/dL (8.5-10.5) L 01/28/21 19:00 Total Bilirubin 5.9 mg/dL (0.15-1.2) H 01/28/21 19:00 AST 67 U/L (0-40) H 01/28/21 19:00 ALT 27 U/L (0-41) 01/28/21 19:00 Alkaline Phosphatase 105 IU/L (40-130) 01/28/21 19:00 Ammonia 56 umol/L (16-60) 01/28/21 19:00 Troponin T Baseline 82 ng/L (0-15) H 01/28/21 14:30 Troponin T 120 Minute 90.03 ng/L (0-15) H 01/28/21 19:00 Delta Troponin T 8.03 ABS# (0-10) 01/28/21 19:00 Troponin T Hi Sens 6Hr 90.21 ng/L (0-15) H 01/28/21 20:27 Troponin T Hi Sens 6Hr Delta 8.21 ng/L (0-12) 01/28/21 20:27 NT-Pro-B Natriuret Pep 2776 pg/mL (0-125) H 01/28/21 14:30 Total Protein 6.0 g/dL (6.6-8.7) L 01/28/21 19:00 Albumin 2.1 g/dL (3.5-5.2) L 01/28/21 19:00 Globulin 3.9 g/dL (1.3-4.6) 01/28/21 19:00 Lipase 96 U/L (13-60) H 01/28/21 14:30 TSH 0.69 uIU/mL (0.27-4.20) 01/28/21 19:00 Urine Color Dark yellow (Yellow) 01/28/21 15:30 Urine Appearance Clear (CLEAR) 01/28/21 15:30 Urine pH 5 (5-7) 01/28/21 15:30 Ur Specific [place] 1.025 (1.005-1.030) 01/28/21 15:30 Urine Protein 1+ (Negative) H 01/28/21 15:30 Urine Glucose (UA) Norm (Normal) 01/28/21 15:30 Urine Ketones 1+ (Negative) H 01/28/21 15:30 Urine Blood 3+ (Negative) H 01/28/21 15:30 Urine Nitrate Negative (Negative) 01/28/21 15:30 Urine Bilirubin 1+ (Negative) H 01/28/21 15:30 Urine Urobilinogen 1 mg/dL (Negative) H 01/28/21 15:30 Ur Leukocyte Esterase 2+ (Negative) H 01/28/21 15:30 Urine RBC 5-10 /hpf (0-2) H 01/28/21 15:30 Urine WBC 5-10 /hpf (0-5) H 01/28/21 15:30 Ur Squamous Epith Cells 10-15 /hpf (0-5) H 01/28/21 15:30 Amorphous Sediment Not Reportable 01/28/21 15:30 Urine Bacteria Trace /hpf (NONE) 01/28/21 15:30 Salicylates < 0.3 mg/dL (3-10) L 01/28/21 19:00 Urine Opiates Screen Negative ng/mL (Negative) 01/28/21 15:30 Acetaminophen < 5.0 ug/mL (10-30) L 01/28/21 19:00 Ur Barbiturates Screen Negative ng/mL (Negative) 01/28/21 15:30 Ur Phencyclidine Scrn Negative ng/mL (Negative) 01/28/21 15:30 Ur Amphetamines Screen Negative ng/mL (Negative) 01/28/21 15:30 U Benzodiazepines Scrn Negative ng/mL (Negative) 01/28/21 15:30 Urine Cocaine Screen Negative ng/mL (Negative) 01/28/21 15:30 U Marijuana (THC) Screen Negative ng/mL (Negative) 01/28/21 15:30 Ethyl Alcohol < 10 mg/dL (0-10) 01/28/21 19:00 SARS-CoV-2 Ag (Rapid) Negative (Negative) 01/28/21 14:[address] 01/28/21 13:51 IMPRESSION: 1. No acute intracranial hemorrhage or edema. 2. Mild cerebral and cerebellar atrophy. Chest X-Ray 01/28/21 16:18 IMPRESSION: Borderline cardiomegaly with mild pulmonary vascular congestion. Micro: Microbiology 01/28/21 20:27 Blood Culture - Preliminary Blood SPECIMEN COLLECTED 01/28/21 14:30 Blood Culture - Preliminary Blood SPECIMEN COLLECTED A&P Assessment and plan (1) Altered mental status: Status: Acute Qualifiers: Altered mental status type: somnolence Qualified Code(s): R40.0 - Somnolence (2) Generalized weakness: Status: Acute (3) Sepsis: As evidenced by fever, leukocytosis, lactic acidosis, hypotension, tachycardia, alteration in mental status consistent with acute encephalopathy and suspected infection. Dialysis catheter site of potential concern as his implanted loop defibrillator. Currently without acute respiratory symptoms. Has abnormal urinalysis but chronically very concentrated urine. SBP or other intra-abdominal process within the differential but abdominal exam is really unremarkable at the moment. He did transiently have some upper abdominal pain at one point in time. In addition to consideration for bacterial infection, viral infections, vascular process, medication effect could account for similar presentation. Have to also keep in mind the large volume reduction he has had over the last few weeks with adjustments to his current therapy for cirrhosis and renal disease. Status: Acute Qualifiers: Sepsis type: sepsis due to unspecified organism Sepsis acute organ dysfunction status: with acute organ dysfunction Severe sepsis acute organ dysfunction type: encephalopathy Severe sepsis shock status: without septic shock Qualified Code(s): A41.9 - Sepsis, unspecified organism; R65.20 - Severe sepsis without septic shock; G93.40 - Encephalopathy, unspecified (4) Liver cirrhosis: Status: Chronic Qualifiers: Hepatic cirrhosis type: other cirrhosis Qualified Code(s): K74.69 - Other cirrhosis of liver (5) ESRD (end stage renal disease) on dialysis: Status: Chronic (6) Hemochromatosis: Status: Chronic Qualifiers: Hemochromatosis type: unspecified Qualified Code(s): E83.119 - Hemochromatosis, unspecified (7) Anemia: Status: Chronic Qualifiers: Anemia type: unspecified type Qualified Code(s): D64.9 - Anemia, unspecified (8) Atrial fibrillation: Status: Chronic Qualifiers: Atrial fibrillation type: unspecified chronic Qualified Code(s): I48.20 - Chronic atrial fibrillation, unspecified Additional A&P Information Oral thrush on exam Currently with pressure support needs ICU level care Broaden antibiotic coverage to include Primaxin, continue vancomycin And Diflucan, nystatin oral Rapid Covid antigen was negative Send PCR test Blood cultures were collected Urine culture was also ordered Tick titers were sent Check bacterial antigens if we're able to get enough urine Check procalcitonin, CRP Repeat ABG Decrease rate of fluids secondary to hemodialysis dependency, cirrhosis and such Resume home midodrine Wean pressor support as able Serial cardiac enzymes and EKGs Nephrology consultation for dialysis Hold spironolactone currently Continue home Xifaxan and as needed lactulose Ammonia level was checked and was normal Serial neuro exams Recheck H&H tomorrow Continue home Symbicort or similar formulary product Continue home statin therapy Chronically on a PPI which I have continued SCDs for DVT prophylaxis When hemodynamically improved, consider PT evaluation Supportive care otherwise Findings, plans and concerns were discussed with patient's as well as with him. Both were given an opportunity to ask questions Anticipated disposition is home with currently but ultimately depend on clinical course CODE STATUS is presently full code although Mr. Martinez does have a living will on file indicating that if there is no chance of meaningful recovery he would not want to be resuscitated or maintained. Attestations Medical Necessity Statement*: Anticipated stay greater than 2 midnights for reasons documented throughout this note. Patient is at high risk of rapid cli nical decline without intervention as described hip to and including the possibility of . He is currently on IV pressors, antibiotics and requiring close monitoring. 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 Fwd Diagnoses Altered mental status R40.0 Altered mental status type: somnolence Generalized weakness R53.1 Sepsis A41.9; R65.20; G93.40 Sepsis type: sepsis due to unspecified organism Sepsis acute organ dysfunction status: with acute organ dysfunction Severe sepsis acute organ dysfunction type: encephalopathy Severe sepsis shock status: without septic shock Liver cirrhosis K74.69 Hepatic cirrhosis type: other cirrhosis ESRD (end stage renal disease) on dialysis N18.6; Z99.2 Hemochromatosis E83.119 Hemochromatosis type: unspecified Anemia D64.9 Anemia type: unspecified type Atrial fibrillation I48.20 Atrial fibrillation type: unspecified chronic
[2021-01-28 21:50] LABS: C Reactive Protein 22.8 mg/L (0.0-4.9)
[2021-01-28 21:58] LABS: Procalcitonin 0.76 ng/mL (0-0.5)
[2021-01-28 22:51] LABS: Lactic Acid level (Lactate) 6.8 mmol/L (0.5-2.2)
[2021-01-28 23:01] LABS: Hepatitis C Virus Antibody Non-Reactive (Nonreactive)
[2021-01-28 23:39] LABS: Cortisol Random 33.22 ug/dL (2.47-19.5)
[2021-01-29] VITALS (27 sets, daily range): BP systolic 98–130; BP diastolic 58–77; PULSE 72–97; RESP 13–25; TEMP 36.7–36.9; O2SAT 91–100
[2021-01-29 03:53] LABS: Basophils # 0.1 10^3/uL (0.0-0.1); Basophils % 0.3 %; Eosinophils % 0.2 %; Hemoglobin 9.2 g/dL (11.7-16.6); Lymphocytes # 2.2 10^3/uL (0.8-4.8); Lymphocytes % 9.5 %; Mean Corpuscular HGB Conc 32.9 g/dL (30.0-36.0); Mean Corpuscular Hemoglobin 36.7 pg (28.0-34.0); Mean Corpuscular Volume 111.6 fl (80-94); Mean Platelet Volume 10.8 fL (7.4-10.4); Monocytes # 2.7 10^3/uL (0.2-0.9); Monocytes % 11.6 %; Neutrophils # 18.02 10^3/uL (1.8-7.7); Neutrophils % 76.8 %; Nucleated Red Blood Cells % 0 %; Platelet Count 64 10^3/cmm (130-400); Red Blood Count 2.51 10^6/uL (4.1-5.3); Red Cell Distribution Width 16.7 % (12.1-15.1); White Blood Count 23.5 10^3/uL (4.0-10.0)
[2021-01-29 04:19] LABS: Slide Review Slide Review Perform
[2021-01-29 04:27] LABS: Alanine Aminotransferase 25 U/L (0-41); Alkaline Phosphatase 100 IU/L (40-130); Anion Gap 21.8 (5-19); Aspartate Amino Transferase 65 U/L (0-40); Blood Urea Nitrogen 33 mg/dL (8-23); Calcium 8.1 mg/dL (8.5-10.5); Carbon Dioxide 19 mmol/L (22-29); Chloride 95 mmol/L (98-107); Ferritin 425 ng/mL (30-400); Globulin 3.7 g/dL (1.3-4.6); Glucose 109 mg/dL (65-115); Iron 46 ug/dL (59-158); Magnesium 1.7 mg/dL (1.7-2.3); Osmolality Calculated 280 mOsm/kg (285-295); Percent Saturation 36.2 % (20-50); Phosphorus 6.3 mg/dL (2.5-4.5); Potassium 4.8 mmol/L (3.5-5.1); Sodium 131 mmol/L (136-145); Total Bilirubin 5.9 mg/dL (0.15-1.2); Total Iron Binding Capacity 127 mcg/dl; Total Protein 5.7 g/dL (6.6-8.7); Unsaturated Iron Binding 81 ug/dL (112-347)
[2021-01-29 04:33] LABS: Parathyroid Hormone 59.7 pg/mL (15-65)
[2021-01-29 04:42] LABS: 25 Hydroxy Vitamin D 20 ng/mL (30-100)
[2021-01-29] MEDS: fluconazole premix 200 MG/100 ML PREMIX 100 MG IV (04:45)
[2021-01-29] MEDS: sodium chloride 0.9% 1,000 ML 75 ML IV (04:46)
[2021-01-29 04:53] LABS: Hepatitis B Surface AB 706.3 (11.5-1000); Hepatitis B Surface Antigen Non-Reactive (Nonreactive)
[2021-01-29 04:54] LABS: Cortisol Random 12.41 ug/dL (2.47-19.5)
--- NOTE | 2021-01-29 07:21 | PC.NURSE ---
Admission Note: Admitted to ICU 10 via stretcher from ED. Levophed infusing at 6mcg/min, will titrate as patients blood pressure tolerates. Awake, alert, and oriented X 3. No reports of pain or discomfort. The patient,Blayne Martinez,75 y/o, was given written information regarding hospital policies, unit procedures and contact persons. Patient's smoking status: never smoked.
[2021-01-29] MEDS: b-complex-vitamin c Tablet 1 EACH PO (07:46)
[2021-01-29] MEDS: pantoprazole DR 40 mg Tablet PO (07:46)
[2021-01-29] MEDS: folic acid 1 mg Tablet PO (07:47)
[2021-01-29] MEDS: midodrine 5 mg TABLET 10 MG PO ×3 (07:47→21:28)
[2021-01-29] MEDS: nystatin 100,000 unit/mL UDC 5 mL 400000 UNIT PO ×4 (07:59→21:28)
[2021-01-29 09:20] LABS: Lactate (Lactic Acid level) 5.2 mmol/L (0.5-2.2)
--- NOTE | 2021-01-29 12:38 | P.PN_ITS ---
Subjective Subjective: Interval history: Patient was seen this morning, currently in ICU, he tells me he feels a lot better with his blood pressure is better, his only complaint is some abdominal pain, some nausea, no lightheadedness, no dizziness, no neck pain, no neck stiffness, no dysuria, no hematuria, no shortness of breath, he thinks that they overdid it during dialysis Vitals/I&O/Wt Last Vital Signs Temp 98.0 F 01/29/21 11:11 Pulse 72 01/29/21 11:11 Resp 18 01/29/21 11:11 BP 113/58 01/29/21 11:11 Pulse Ox 99 01/29/21 11:11 01/28/21 01/29/21 01/29/21 22:59 06:59 14:59 Intake Total 1626.506 / 7218.232 2989.619 / 3180.125 668.616 / 668.616 Output Total 350 / 350 Balance 1626.506 / 0089.193 4132.619 / 3180.125 318.616 / 318.616 Weight last 48 hrs Weight 104.462 kg Weight 86.183 kg Physical Exam Const: COMMON NORMALS: no acute distress GENERAL APPEARANCE: cooperative and frail appearing ORIENTATION/CONSCIOUSNESS: Yes awake, Yes oriented to person, Yes oriented to place and Yes oriented to time Neck/C-Spine: COMMON NORMALS: no JVD Resp: COMMON NORMALS: normal respiratory effort, No retractions, No use of accessory muscles and clear to auscultation bilaterally AUSCULTATION: clear to auscultation bilaterally Cardio: COMMON NORMALS: no JVD, regular rate, regular rhythm, S1 normal heart sound present and S2 normal heart sound present RATE: regular rate RHYTHM: regular rhythm HEART SOUNDS: S1 normal heart sound present and S2 normal heart sound present GI: COMMON NORMALS: Normal to inspection, nondistended, normoactive bowel sounds present and Soft to palpation PALPATION: Yes Soft to palpation, Yes Tenderness to palpation present (GI) (Generalized tenderness), No Guarding due to palpation present (GI) and No Rigid due to palpation Extremity: COMMON NORMALS: no pedal edema Neuro: SENSORIUM/ORIENTATION: Yes oriented to person, Yes oriented to place and Yes oriented to time Skin: GENERAL SKIN EXAM: jaundice Data : 01/29/21 03:35 01/29/21 03:35 Micro: Microbiology 01/28/21 15:30 Bacterial Antigens - Final Urine,Clean Catch 01/28/21 20:27 Blood Culture - Preliminary Blood SPECIMEN COLLECTED 01/28/21 14:30 Blood Culture - Preliminary Blood SPECIMEN COLLECTED A&P Assessment and plan (1) Altered mental status: Status: Acute Qualifiers: Altered mental status type: somnolence Qualified Code(s): R40.0 - Somnolence (2) Generalized weakness: Status: Acute (3) Sepsis: As evidenced by fever, leukocytosis, lactic acidosis, hypotension, tachycardia, alteration in mental status consistent with acute encephalopathy and suspected infection. Dialysis catheter site of potential concern as his implanted loop defibrillator. Currently without acute respiratory symptoms. Has abnormal urinalysis but chronically very concentrated urine. SBP or other intra-abdominal process within the differential but abdominal exam is really unremarkable at the moment. He did transiently have some upper abdominal pain at one point in time. In addition to consideration for bacterial infection, viral infections, vascular process, medication effect could account for similar presentation. Have to also keep in mind the large volume reduction he has had over the last few weeks with adjustments to his current therapy for cirrhosis and renal disease. Status: Acute Qualifiers: Sepsis acute organ dysfunction status: with acute organ dysfunction Sepsis type: sepsis due to unspecified organism Severe sepsis acute organ dysfunction type: encephalopathy Severe sepsis shock status: without septic fely ck Qualified Code(s): A41.9 - Sepsis, unspecified organism; R65.20 - Severe sepsis without septic shock; G93.40 - Encephalopathy, unspecified (4) Liver cirrhosis: Status: Chronic Qualifiers: Hepatic cirrhosis type: other cirrhosis Qualified Code(s): K74.69 - Other cirrhosis of liver (5) ESRD (end stage renal disease) on dialysis: Status: Chronic (6) Hemochromatosis: Status: Chronic Qualifiers: Hemochromatosis type: unspecified Qualified Code(s): E83.119 - Hemochromatosis, unspecified (7) Anemia: Status: Chronic Qualifiers: Anemia type: unspecified type Qualified Code(s): D64.9 - Anemia, unspecified (8) Atrial fibrillation: Status: Chronic Qualifiers: Atrial fibrillation type: unspecified chronic Qualified Code(s): I48.20 - Chronic atrial fibrillation, unspecified Additional A&P Information Sepsis, with septic encephalopathy -Etiology likely UTI -WBC 23.5, -However spontaneous bacterial peritonitis is on the differential -Liver cirrhosis, third spacing of fluid, dialysis is certainly playing a role -Currently off pressors, MAP greater than 65 -Alert oriented x3, follows all commands Plan: -We will move out of ICU -Continue midodrine 10 mg 3 times daily -Monitor blood pressures closely, monitor MAP -Continue broad-spectrum antibiotic therapy vancomycin and Primaxin -Continue fluconazole, history of yeast UTIs -Follow blood cultures, urine cultures, tick panel, Covid PCR -Continue lactulose and rifaximin -Anticoagulation contraindicated -Protonix for GI prophylaxis -Full code Oral thrush on exam, nystatin Anemia, thrombocytopenia secondary to liver cirrhosis, with component of sepsis Elevated INR, secondary to liver cirrhosis, component of sepsis Hyponatremia, secondary liver cirrhosis Metabolic acidosis, secondary to elevated lactic acid, sepsis, liver failure Hyperbilirubinemia, secondary to liver cirrhosis Elevated troponins, likely type II NSTEMI, supply demand ischemia from sepsis, continue to monitor, telemetry monitoring Liver cirrhosis, decompensated liver failure, secondary to iron overload, with anemia, thrombocytopenia, hepatorenal syndrome, history of upper GI bleed, duodenal ulcer, hyperbilirubinemia, chronically elevated lactic acid, hypoalbuminemia, hepatic encephalopathy -Not a candidate for liver and kidney transplant -Monitor serum ammonia levels, continue rifaximin, lactulose End-stage renal disease, hepatorenal syndrome, consult nephrology for dialysis Atrial fibrillation, not a candidate for anticoagulation given GI bleed Continue home Symbicort or similar formulary product Continue home statin therapy Chronically on a PPI which I have continued SCDs for DVT prophylaxis When hemodynamically improved, consider PT evaluation Supportive care otherwise Findings, plans and concerns were discussed with patient's as well as with him. Both were given an opportunity to ask questions Anticipated disposition is home with currently but ultimately depend on clinical course CODE STATUS is presently full code although Mr. Martinez does have a living will on file indicating that if there is no chance of meaningful recovery he would not want to be resuscitated or maintained. Attestations Medical Necessity Statement*: Patient requires hospitalization, inpatient, greater than 2 midnights, for sepsis, septic encephalopathy, secondary to UTI, possible SBP Coding Level of Care Code Acute Mold Maintenance Technician for [facility] Diagnoses Altered mental status R40.0 Altered mental status type: somnolence Generalized weakness R53.1 Sepsis A41.9; R65.20; G93.40 Sepsis acute organ dysfunction status: with acute organ dysfunction Sepsis type: sepsis due to unspecified organism Severe sepsis acute organ dysfunction type: encephalopathy Severe sepsis shock status: without septic shock Liver cirrhosis K74.69 Hepatic cirrhosis type: other cirrhosis ESRD (end stage renal disease) on dialysis N18.6; Z99.2 Hemochromatosis E83.119 Hemochromatosis type: unspecified Anemia D64.9 Anemia type: unspecified type Atrial fibrillation I48.20 Atrial fibrillation type: unspecified chronic
--- NOTE | 2021-01-29 13:54 | PM.PN ---
Subjective Subjective: Interval history: Mr. Martinez is feeling significantly better today. He denies fevers, chills. He is off vasopressor agents. He is about to be transferred to the medical floor. Some slight discomfort in his epigastrium but nothing severe. Eating and drinking. No extremity edema, shortness of breath or other hypervolemic symptoms. No uremic symptoms. Vitals/I&O/Wt Last Vital Signs Temp 98.0 F 01/29/21 11:11 Pulse 72 01/29/21 11:11 Resp 18 01/29/21 11:11 BP 113/58 01/29/21 11:11 Pulse Ox 99 01/29/21 11:11 01/28/21 01/29/21 01/29/21 22:59 06:59 14:59 Intake Total 1626.506 / 7294.569 9730.619 / 3180.125 668.616 / 668.616 Output Total 350 / 350 Balance 1626.506 / 6051.310 3273.619 / 3180.125 318.616 / 318.616 Weight last 48 hrs Weight 104.462 kg Weight 86.183 kg Physical Exam Narrative: EXAM NARRATIVE: Constitutional: Awake, comfortable HEENT: Wet mucosa, no jvp, non icteric Lungs: Bilaterally clear without discernible wheeze, rales in all lung zones CVS: S1 S2, no murmurs Abdo: Soft, BS ok Ext 4: Minimal edema, peripheral perfusion with no cyanosis Neurological: Grossly non-focal Data : 01/29/21 03:35 01/29/21 03:35 Micro: Microbiology 01/28/21 15:30 Bacterial Antigens - Final Urine,Clean Catch 01/28/21 20:27 Blood Culture - Preliminary Blood SPECIMEN COLLECTED 01/28/21 14:30 Blood Culture - Preliminary Blood SPECIMEN COLLECTED A&P Additional A&P Information 1. ESRD We will plan to do dialysis today per schedule Continue M, W, F. 2K bath, ultrafiltration, will be gentle 1-2 L. Daily evaluation for dialysis, but will plan to do it again on Monday. Dose medication for GFR less than 15 on dialysis 2. Sepsis Unclear etiology, microbiology pending, still no growth to date. Suspicious for line infection I will DC tunneled line if blood cultures returned positive. Currently on empirical antibiotics with vancomycin and Primaxin 3. Chemistry Noncritical aberration consistent with being under dialyzed including hyponatremia, anion gap metabolic acidosis 4. Anemia Hemoglobin level is stable in the mid 9 range, continue to monitor, if it drops much more we can check iron levels and give EPO. Vladimir Morales MD Nephrology [phone] Patient seen and examined via telemedicine, with the assistance of the bedside RN > 25 min spent in evaluation and mgmt of patient Attestations Medical Necessity Statement*: Eval for ESRD Coding Level of Care Code Acute Housing Property Manager for [facility]
[2021-01-29] MEDS: lactulose oral liq 20 gm/30 mL UDC 25 GM PO ×2 (17:08→21:26)
[2021-01-29] MEDS: atorvastatin 40 mg Tablet 10 MG PO (17:09)
[2021-01-29] MEDS: vancomycin 1,000 MG in sodium chloride 0.9% 250 ML 250 MG IV (18:13)
[2021-01-30] VITALS (10 sets, daily range): BP systolic 96–112; BP diastolic 48–71; PULSE 73–109; RESP 16–18; TEMP 36.3–37.1; O2SAT 95–100
[2021-01-30] MEDS: fluconazole premix 200 MG/100 ML PREMIX 100 MG IV (05:16)
--- NOTE | 2021-01-30 05:48 | PC.NURSE ---
Patient AAOx4, VSS, repositions self in bed, no needs at this time, no new safety events during shift. Will continue to monitor until oncoming nurse takes report and handoff is made.
--- NOTE | 2021-01-30 06:00 | USR_ITS ---
PROCEDURE INFORMATION: Exam: US Abdomen Complete Exam date and time: 01/30/2021 6:00 AM Age: 75 years old Clinical indication: Abdominal pain; Additional info: Ascites, sbp, with bladder, dialysis at 1300 not npo, npo at midnight 01/29/21 TECHNIQUE: Imaging protocol: Real-time ultrasound of the abdomen with image documentation. COMPARISON: US abdomen limited [id number] 11/24/2020 4:10 PM FINDINGS: Limited evaluation due to overlying bowel gas. Liver: The liver demonstrates coarsened echotexture and lobular contour, consistent with cirrhosis. No mass. Patent main portal vein with hepatofugal flow. Gallbladder: Poorly visualized. No gallstones. Borderline wall thickening measuring up to 3 mm. Trace pericholecystic fluid noted. Common bile duct: Normal. No stones. No dilation. Pancreas: Obscured by overlying bowel gas. Right kidney: Normal. No mass. No hydronephrosis. Left kidney: Normal. No mass. No hydronephrosis. Spleen: Normal. No splenomegaly. Aorta: Obscured by overlying bowel gas. Inferior vena cava: Normal. Other findings: No ascites. US/US abdomen complete* [id number] IMPRESSION: Limited evaluation due to overlying bowel gas. 1. Cirrhotic liver with stigmata of portal hypertension, manifested by portal vein hepatofugal flow. No hepatic mass seen. 2. Borderline gallbladder wall thickening and trace pericholecystic fluid, likely secondary to chronic liver disease.
[2021-01-30] MEDS: lactulose oral liq 20 gm/30 mL UDC 25 GM PO ×3 (08:49→20:06)
[2021-01-30] MEDS: b-complex-vitamin c Tablet 1 EACH PO (08:51)
[2021-01-30] MEDS: midodrine 5 mg TABLET 10 MG PO ×3 (08:51→20:04)
[2021-01-30] MEDS: nystatin 100,000 unit/mL UDC 5 mL 400000 UNIT PO ×4 (08:51→20:04)
[2021-01-30] MEDS: folic acid 1 mg Tablet PO (08:51)
[2021-01-30] MEDS: pantoprazole DR 40 mg Tablet PO (08:52)
[2021-01-30 10:03] LABS: Basophils % 0.4 %; Eosinophils # 0.2 10^3/uL (0.0-0.8); Eosinophils % 1.4 %; Hematocrit 28.1 % (42.0-52.0); Hemoglobin 9.1 g/dL (11.7-16.6); Lymphocytes # 1.9 10^3/uL (0.8-4.8); Lymphocytes % 17.2 %; Mean Corpuscular HGB Conc 32.4 g/dL (30.0-36.0); Mean Corpuscular Hemoglobin 35.8 pg (28.0-34.0); Mean Corpuscular Volume 110.6 fl (80-94); Mean Platelet Volume 10.7 fL (7.4-10.4); Monocytes # 1.7 10^3/uL (0.2-0.9); Monocytes % 15.4 %; Neutrophils # 7.13 10^3/uL (1.8-7.7); Neutrophils % 64.3 %; Nucleated Red Blood Cells % 0.2 %; Platelet Count 58 10^3/cmm (130-400); Red Blood Count 2.54 10^6/uL (4.1-5.3); Red Cell Distribution Width 16.6 % (12.1-15.1); White Blood Count 11.1 10^3/uL (4.0-10.0)
--- NOTE | 2021-01-30 10:03 | PM.PN ---
Subjective Subjective: Interval history: Mr. Martinez feels reasonably well today. He reports no fevers or chills overnight. He complains of no pain. Dialysis went well yesterday. Hemodynamics reviewed, remained stable but somewhat soft. Some mild lower extremity edema but no other symptoms of hypervolemia no uremic symptoms. Vitals/I&O/Wt Last Vital Signs Temp 98.6 F 01/30/21 08:00 Pulse 83 01/30/21 09:50 Resp 16 01/30/21 09:50 BP 103/48 01/30/21 08:00 Pulse Ox 97 01/30/21 09:50 01/29/21 01/30/21 01/30/21 22:59 06:59 14:59 Intake Total 1428.75 / 2097.366 200 / 2297.366 360 / 360 Output Total 174 / 1 375 / 2466 Balance -312.25 / 6.366 -175 / -168.634 360 / 360 Weight last 48 hrs Weight 103.447 kg Weight 103.2 kg Weight 104.462 kg Weight 86.183 kg Physical Exam Narrative: EXAM NARRATIVE: Constitutional: Awake, comfortable HEENT: Wet mucosa, no jvp, non icteric Lungs: Bilaterally clear without discernible wheeze, rales in all lung zones CVS: S1 S2, no murmurs Abdo: Soft, BS ok Ext 4: Minimal edema, peripheral perfusion with no cyanosis Neurological: Grossly non-focal Data : 01/29/21 03:35 01/29/21 03:35 Micro: Microbiology 01/28/21 14:30 Blood Culture - Preliminary Blood 01/28/21 20:27 Blood Culture - Preliminary Blood NEGATIVE TO DATE 01/28/21 15:30 Bacterial Antigens - Final Urine,Clean Catch A&P Additional A&P Information 1. ESRD We will plan to do dialysis on Monday Continue M, W, F. 2K bath, ultrafiltration, will be gentle 1-2 L. Daily evaluation for dialysis, but will plan to do it again on Monday. Dose medication for GFR less than 15 on dialysis 2. Sepsis Unclear etiology, microbiology pending, still no growth to date. Suspicious for line infection I will DC tunneled line if blood cultures returned positive. Currently on empirical antibiotics with vancomycin and Primaxin 3. Chemistry Lytes pending for today, I would expect improvement following dialysis yesterday 4. Anemia Hemoglobin level is pending for today. Continue to monitor, if it drops much more we can check iron levels and give EPO. Vladimir Morales MD Nephrology [phone] Patient seen and examined via telemedicine, with the assistance of the bedside RN > 25 min spent in evaluation and mgmt of patient Attestations Medical Necessity Statement*: Eval for ESRD mgmt Coding Level of Care Code Acute Political Research Scientist for [facility]
[2021-01-30 10:36] LABS: Ammonia 23 umol/L (16-60)
[2021-01-30 10:37] LABS: Lactate (Lactic Acid level) 3.4 mmol/L (0.5-2.2)
[2021-01-30 10:45] LABS: INR 2.38 (0.8-1.2)
[2021-01-30 10:50] LABS: Procalcitonin 2.07 ng/mL (0-0.5); Vancomycin Random 14.9 ug/mL (20.0-40.0)
[2021-01-30 11:00] LABS: C Reactive Protein 49.7 mg/L (0.0-4.9); NT Pro B Type Natriuretic Pept 4804 pg/mL (0-125)
[2021-01-30 11:01] LABS: Slide Review Slide Review Perform
[2021-01-30 11:02] LABS: Alanine Aminotransferase 27 U/L (0-41); Albumin Level 1.8 g/dL (3.5-5.2); Alkaline Phosphatase 99 IU/L (40-130); Anion Gap 14.1 (5-19); Aspartate Amino Transferase 65 U/L (0-40); Blood Urea Nitrogen 30 mg/dL (8-23); Carbon Dioxide 24 mmol/L (22-29); Chloride 97 mmol/L (98-107); Globulin 3.9 g/dL (1.3-4.6); Glucose 126 mg/dL (65-115); Magnesium 1.7 mg/dL (1.7-2.3); Osmolality Calculated 280 mOsm/kg (285-295); Phosphorus 3.9 mg/dL (2.5-4.5); Potassium 4.1 mmol/L (3.5-5.1); Sodium 131 mmol/L (136-145); Total Bilirubin 5.1 mg/dL (0.15-1.2); Total Protein 5.7 g/dL (6.6-8.7)
--- NOTE | 2021-01-30 14:06 | PM.PN ---
Subjective Subjective: Interval history: This morning patient was seen, he is having some abdominal pain, in the right upper quadrant, but overall he tells me doing well, no fevers overnight, no cough, no nausea, no vomiting, no diarrhea Vitals/I&O/Wt Last Vital Signs Temp 97.4 F L 01/30/21 12:00 Pulse 87 01/30/21 12:00 Resp 18 01/30/21 12:00 BP 105/71 01/30/21 12:00 Pulse Ox 98 01/30/21 12:00 01/29/21 01/30/21 01/30/21 22:59 06:59 14:59 Intake Total 1428.75 / 2097.366 200 / 2297.366 820 / 820 Output Total 1741 / 2091 375 / 2466 Balance -312.25 / 6.366 -175 / -168.634 820 / 820 Weight last 48 hrs Weight 103.447 kg Weight 103.2 kg Weight 104.462 kg Physical Exam Const: COMMON NORMALS: no acute distress and patient oriented x3 GENERAL APPEARANCE: frail appearing Resp: COMMON NORMALS: normal respiratory effort, No retractions, No use of accessory muscles and clear to auscultation bilaterally AUSCULTATION: clear to auscultation bilaterally Cardio: COMMON NORMALS: regular rate, regular rhythm, S1 normal heart sound present and S2 normal heart sound present RATE: regular rate RHYTHM: regular rhythm HEART SOUNDS: S1 normal heart sound present and S2 normal heart sound present GI: COMMON NORMALS: Normal to inspection, nondistended, normoactive bowel sounds present, Soft to palpation and non-tender PALPATION: Yes Soft to palpation, Yes Hepatomegaly present and Yes Ascites present Extremity: COMMON NORMALS: no pedal edema Neuro: COMMON NORMALS: patient oriented x3 Psych: COMMON NORMALS: mental status grossly normal Skin: GENERAL SKIN EXAM: jaundice Data : 01/30/21 09:49 01/30/21 09:49 Micro: Microbiology 01/28/21 14:30 Blood Culture - Preliminary Blood 01/28/21 20:27 Blood Culture - Preliminary Blood NEGATIVE TO DATE 01/28/21 15:30 Bacterial Antigens - Final Urine,Clean Catch A&P Assessment and plan (1) Altered mental status: Status: Acute Qualifiers: Altered mental status type: somnolence Qualified Code(s): R40.0 - Somnolence (2) Generalized weakness: Status: Acute (3) Sepsis: Status: Acute Qualifiers: Sepsis acute organ dysfunction status: with acute organ dysfunction Sepsis type: sepsis due to unspecified organism Severe sepsis acute organ dysfunction type: encephalopathy Severe sepsis shock status: without septic shock Qualified Code(s): A41.9 - Sepsis, unspecified organism; R65.20 - Severe sepsis without septic shock; G93.40 - Encephalopathy, unspecified (4) Liver cirrhosis: Status: Chronic Qualifiers: Hepatic cirrhosis type: other cirrhosis Qualified Code(s): K74.69 - Other cirrhosis of liver (5) ESRD (end stage renal disease) on dialysis: Status: Chronic (6) Hemochromatosis: Status: Chronic Qualifiers: Hemochromatosis type: unspecified Qualified Code(s): E83.119 - Hemochromatosis, unspecified (7) Anemia: Status: Chronic Qualifiers: Anemia type: unspecified type Qualified Code(s): D64.9 - Anemia, unspecified (8) Atrial fibrillation: Status: Chronic Qualifiers: Atrial fibrillation type: unspecified chronic Qualified Code(s): I48.20 - Chronic atrial fibrillation, unspecified Additional A&P Information Sepsis, with septic encephalopathy -Sepsis resolved, encephalopathy resolved -Etiology likely UTI -WBC 11.1 -However spontaneous bacterial peritonitis is on the differential, ultrasound of the liver does not show significant ascites -I do not believe his dialysis catheter is a source, no surrounding erythema, notices loop recorder source -Liver cirrhosis, third spacing of fluid, dialysis is certainly playing a role -Currently off pressors, MAP greater than 65 -Alert oriented x3, follows all commands Plan: -Currently on general medical floors -Continue midodrine 10 mg 3 times daily -Monitor blood pressures closely, monitor MAP -Continue broad-spectrum antibiotic therapy vancomycin and Primaxin -Continue fluconazole, history of yeast UTIs -Follow blood cultures, urine cultures, tick panel, so far negative -Continue lactulose and rifaximin -Likely will discharge on SBP prophylaxis -Anticoagulation contraindicated -Protonix for GI prophylaxis -Full code Oral thrush on exam, nystatin Anemia, thrombocytopenia secondary to liver cirrhosis, with component of sepsis Elevated INR, secondary to liver cirrhosis, component of sepsis Hyponatremia, secondary liver cirrhosis Metabolic acidosis, secondary to elevated lactic acid, sepsis, liver failure Hyperbilirubinemia, secondary to liver cirrhosis Elevated troponins, likely type II NSTEMI, supply demand ischemia from sepsis, continue to monitor, telemetry monitoring Liver cirrhosis, decompensated liver failure, secondary to iron overload, with anemia, thrombocytopenia, hepatorenal syndrome, history of upper GI bleed, duodenal ulcer, hyperbilirubinemia, chronically elevated lactic acid, hypoalbuminemia, hepatic encephalopathy -Not a candidate for liver and kidney transplant -Monitor serum ammonia levels, continue rifaximin, lactulose -I did did have a discussion with patient about hospice care, in terms of his long-term care and prognosis, he tells me that he is talked to his and his family End-stage renal disease, hepatorenal syndrome, consult nephrology for dialysis Atrial fibrillation, not a candidate for anticoagulation given GI bleed Continue home Symbicort or similar formulary product Continue home statin therapy Chronically on a PPI which I have continued SCDs for DVT prophylaxis Supportive care otherwise CODE STATUS is presently full code although Mr. Martinez does have a living will on file indicating that if there is no chance of meaningful recovery he would not want to be resuscitated or maintained. Attestations Medical Necessity Statement*: Patient requires hospitalization for sepsis, decompensated liver failure Coding Level of Care Code Acute Embroiderer for [facility] Fwd Diagnoses Altered mental status R40.0 Altered mental status type: somnolence Generalized weakness R53.1 Sepsis A41.9; R65.20; G93.40 Sepsis acute organ dysfunction status: with acute organ dysfunction Sepsis type: sepsis due to unspecified organism Severe sepsis acute organ dysfunction type: encephalopathy Severe sepsis shock status: without septic shock Liver cirrhosis K74.69 Hepatic cirrhosis type: other cirrhosis ESRD (end stage renal disease) on dialysis N18.6; Z99.2 Hemochromatosis E83.119 Hemochromatosis type: unspecified Anemia D64.9 Anemia type: unspecified type Atrial fibrillation I48.20 Atrial fibrillation type: unspecified chronic
[2021-01-30] MEDS: atorvastatin 40 mg Tablet 10 MG PO (17:06)
[2021-01-30 20:42] LABS: Quest SARS-CoV-2 RNA NOT DETECTED (NOT DETECTED)
[2021-01-31] VITALS (10 sets, daily range): BP systolic 95–115; BP diastolic 52–67; PULSE 67–88; RESP 14–18; TEMP 36.4–36.9; O2SAT 93–100
[2021-01-31] MEDS: fluconazole premix 200 MG/100 ML PREMIX 100 MG IV (03:19)
--- NOTE | 2021-01-31 05:58 | PC.NURSE ---
Patient AAOx4, resting comfortably in bed, OOBT restroom with stanby assist without complications. VSS, no needs at this time. No safety concerns, room clutter free, call light in reach. Will continue to monitor patient until shift change and handoff to receiving nurse.
--- NOTE | 2021-01-31 07:23 | P.PN_ITS ---
Subjective Subjective: Interval history: abd pain, dark urine, weak Medications: Reviewed: Yes Medication Review Details: Current Medications Acetaminophen (Acetaminophen 325 Mg Tablet) 650 mg PO Q6H PRN PRN Reason: MILD PAIN Atorvastatin Calcium (Atorvastatin 40 Mg Tablet) 10 mg PO DAILY@17 [facility] Last Admin: 01/30/21 17:06 Dose: 10 mg Documented by: Folic Acid (Folic Acid 1 Mg Tablet) 1 mg PO DAILY@08 [facility] Last Admin: 01/30/21 08:51 Dose: 1 mg Documented by: Heparin Sodium (Beef Lung) (Heparin Lock Flush 500 Unit/5 Ml Syringe) 500 unit IV ONCE PRN PRN Reason: flush port Imipenem/Cilastatin Sodium 250 (mg/ Sodium Chloride) 100 mls @ 200 mls/hr IV Q6H [facility]; Protocol Last Infusion: 01/31/21 03:22 Dose: Infused Documented by: Vancomycin HCl 1,000 mg/ (Sodium Chloride) 250 mls @ 250 mls/hr IV MoWeFr [facility]; Protocol Last Infusion: 01/29/21 22:19 Dose: Infused Documented by: Fluconazole (Diflucan Premix) 200 mg in 100 mls @ 100 mls/hr IV Q24H [facility] Last Infusion: 01/31/21 04:22 Dose: Infused Documented by: Lactulose (Lactulose Oral Liq 20 Gm/30 Ml Udc) 25 gm PO TID [facility] Last Admin: 01/30/21 20:06 Dose: 25 gm Documented by: Midodrine (Midodrine 5 Mg Tablet) 10 mg PO TID [facility] Last Admin: 01/30/21 20:04 Dose: 10 mg Documented by: Multivitamins (R-Qcdytbw-Wofqpfk C Tablet) 1 each PO DAILY [facility] Last Admin: 01/30/21 08:51 Dose: 1 each Documented by: Nystatin (Nystatin 100,000 Unit/Ml Udc 5 Ml) 400,000 unit PO QID [facility] Last Admin: 01/30/21 20:04 Dose: 400,000 unit Documented by: Ondansetron HCl (Ondansetron 2 Mg/Ml Sdv 2 Ml) 4 mg IVP Q6H PRN PRN Reason: NAUSEA AND VOMITING Pantoprazole Sodium (Pantoprazole Dr 40 Mg Tablet) 40 mg PO DAILY@08 [facility] Last Admin: 01/30/21 08:52 Dose: 40 mg Documented by: Rifaximin (Rifaximin 550 Mg Tablet) 550 mg PO BID@ [facility]; Protocol Last Admin: 01/30/21 17:06 Dose: 550 mg Documented by: Fluticasone/Salmeterol (Fluticasone-Salmeterol 250-50 Diskus) 1 puff INHALATION BID.RESPIRATORY [facility] Last Admin: 01/30/21 23:09 Dose: Not Given Documented by: Vitals/I&O/Wt Last Vital Signs Temp 97.8 F 01/31/21 04:00 Pulse 86 01/31/21 04:00 Resp 18 01/31/21 04:00 BP 103/62 01/31/21 04:00 Pulse Ox 98 01/31/21 04:00 01/30/21 01/31/21 01/31/21 22:59 06:59 14:59 Intake Total 200 / 1020 300 / 1320 Output Total 50 / 50 Balance 150 / 970 300 / 1270 Weight last 48 hrs Weight 103.447 kg Weight 103.2 kg Physical Exam Narrative: EXAM NARRATIVE: elderly man, NARD, more comfortable in bed vs noted heent- nc/at, eomi, icteric neck - no jvp lungs clear b/l heart reg, no rub, +ANG abd soft, nt, ascites, +BS ext no edema neuro- a,a, o x 3 dialysis access-rt ant chest wall- not tender skin- yellow Data : 01/30/21 09:49 01/30/21 09:49 Micro: Microbiology 01/28/21 20:27 Blood Culture - Preliminary Blood 01/28/21 15:30 Urine Culture - Preliminary Urine,Clean Catch Enterococcus species 01/28/21 14:30 Blood Culture - Preliminary Blood A&P Additional A&P Information 1. ESRD We will plan to do dialysis on Monday Continue M, W, F. 2K bath, ultrafiltration, will be gentle 2 L as tolerated. Dose medication for GFR less than 15 on dialysis 2. Sepsis enterococcus uti.20-30,000 -blood cx neg Currently on empirical antibiotics with vancomycin and Primaxin -keep vanco trough under 19 - Q SBP 3. Anemia Hemoglobin level is pending for today. Continue to monitor, check iron levels and give EPO. likely avoid iron w/ liver disease ( h/o iron overload)and infectious process 4. lactic acidosis on admission- bicarb now normal 5. phos improved -replace vit d 6. inc bili -hemachromatosis 7. high bnp 8. 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
[2021-01-31] MEDS: lactulose oral liq 20 gm/30 mL UDC 25 GM PO ×2 (08:25→14:59)
[2021-01-31] MEDS: b-complex-vitamin c Tablet 1 EACH PO (08:29)
[2021-01-31] MEDS: folic acid 1 mg Tablet PO (08:29)
[2021-01-31] MEDS: midodrine 5 mg TABLET 10 MG PO ×3 (08:29→20:26)
[2021-01-31] MEDS: pantoprazole DR 40 mg Tablet PO (08:29)
[2021-01-31] MEDS: nystatin 100,000 unit/mL UDC 5 mL 400000 UNIT PO ×4 (08:29→20:25)
[2021-01-31 11:38] LABS: Basophils # 0.1 10^3/uL (0.0-0.1); Basophils % 0.6 %; Eosinophils # 0.3 10^3/uL (0.0-0.8); Eosinophils % 2.6 %; Hematocrit 26.3 % (42.0-52.0); Hemoglobin 8.6 g/dL (11.7-16.6); Lymphocytes # 2.2 10^3/uL (0.8-4.8); Lymphocytes % 18.6 %; Mean Corpuscular HGB Conc 32.7 g/dL (30.0-36.0); Mean Corpuscular Hemoglobin 35.7 pg (28.0-34.0); Mean Corpuscular Volume 109.1 fl (80-94); Mean Platelet Volume 11.4 fL (7.4-10.4); Monocytes % 17.4 %; Neutrophils # 6.89 10^3/uL (1.8-7.7); Neutrophils % 59.5 %; Nucleated Red Blood Cells % 0 %; Platelet Count 60 10^3/cmm (130-400); Red Blood Count 2.41 10^6/uL (4.1-5.3); Red Cell Distribution Width 16.3 % (12.1-15.1); White Blood Count 11.6 10^3/uL (4.0-10.0)
[2021-01-31 11:49] LABS: Ammonia 21 umol/L (16-60)
[2021-01-31 11:53] LABS: Lactate (Lactic Acid level) 3.4 mmol/L (0.5-2.2)
[2021-01-31 11:59] LABS: Alanine Aminotransferase 35 U/L (0-41); Albumin Level 1.8 g/dL (3.5-5.2); Alkaline Phosphatase 103 IU/L (40-130); Anion Gap 14.8 (5-19); Aspartate Amino Transferase 107 U/L (0-40); Blood Urea Nitrogen 38 mg/dL (8-23); Calcium 7.6 mg/dL (8.5-10.5); Carbon Dioxide 23 mmol/L (22-29); Chloride 93 mmol/L (98-107); Globulin 3.8 g/dL (1.3-4.6); Glucose 113 mg/dL (65-115); Magnesium 2.2 mg/dL (1.7-2.3); Osmolality Calculated 274 mOsm/kg (285-295); Phosphorus 4.1 mg/dL (2.5-4.5); Potassium 3.8 mmol/L (3.5-5.1); Sodium 127 mmol/L (136-145); Total Bilirubin 4.6 mg/dL (0.15-1.2); Total Protein 5.6 g/dL (6.6-8.7)
[2021-01-31 12:02] LABS: C Reactive Protein 46.3 mg/L (0.0-4.9); NT Pro B Type Natriuretic Pept 2931 pg/mL (0-125)
[2021-01-31 12:06] LABS: Procalcitonin 1.48 ng/mL (0-0.5)
[2021-01-31 12:09] LABS: Hepatitis B Surface AB 718.3 (11.5-1000); Hepatitis B Surface Antigen Non-Reactive (Nonreactive); Hepatitis C Virus Antibody Non-Reactive (Nonreactive)
--- NOTE | 2021-01-31 13:07 | PM.PN ---
Subjective Subjective: Interval history: Patient was seen this morning, he is doing well, he actually had a shower this morning, no fevers, chills, nausea, vomiting, he does have gram-positive bacteremia, will waiting on the identification Patient's daughter was over the phone, I met the patient personally, and with patient, I had a discussion about his goals of care, patient has end-stage liver failure, secondary to iron overload, I advised that patient is suffering complications from his liver failure, discussed his overall goals of care, discussed long-term options, family is interested in hospice, will have building services coordinator, and talk to patient about his options Vitals/I&O/Wt Last Vital Signs Temp 97.6 F 01/31/21 12:00 Pulse 76 01/31/21 12:00 Resp 16 01/31/21 12:00 BP 104/64 01/31/21 12:00 Pulse Ox 98 01/31/21 12:00 01/30/21 01/31/21 01/31/21 22:59 06:59 14:59 Intake Total 200 / 1020 300 / 1320 220 / 220 Output Total 50 / 50 100 / 100 Balance 150 / 970 300 / 1270 120 / 120 Weight last 48 hrs Weight 103.447 kg Weight 103.2 kg Physical Exam Const: COMMON NORMALS: no acute distress GENERAL APPEARANCE: cooperative and frail appearing ORIENTATION/CONSCIOUSNESS: Yes awake, Yes oriented to person, Yes oriented to place and Yes oriented to time OTHER: Jaundice. Resp: COMMON NORMALS: normal respiratory effort, No retractions, No use of accessory muscles and clear to auscultation bilaterally AUSCULTATION: clear to auscultation bilaterally Cardio: COMMON NORMALS: regular rate, regular rhythm, S1 normal heart sound present and S2 normal heart sound present RATE: regular rate RHYTHM: regular rhythm HEART SOUNDS: S1 normal heart sound present and S2 normal heart sound present GI: COMMON NORMALS: Normal to inspection, nondistended, normoactive bowel sounds present, Soft to palpation and non-tender PALPATION: Yes Soft to palpation Extremity: COMMON NORMALS: no pedal edema Neuro: SENSORIUM/ORIENTATION: Yes oriented to person, Yes oriented to place and Yes oriented to time Data : 01/31/21 11:07 01/31/21 11:07 Micro: Microbiology 01/28/21 14:30 Blood Culture - Preliminary Blood Staphylococcus aureus 01/28/21 20:27 Blood Culture - Preliminary Blood Staphylococcus aureus 01/28/21 15:30 Urine Culture - Preliminary Urine,Clean Catch Enterococcus species A&P Assessment and plan (1) Altered mental status: Status: Acute Qualifiers: Altered mental status type: somnolence Qualified Code(s): R40.0 - Somnolence (2) Generalized weakness: Status: Acute (3) Sepsis: . Status: Acute Qualifiers: Sepsis acute organ dysfunction status: with acute organ dysfunction Sepsis type: sepsis due to unspecified organism Severe sepsis acute organ dysfunction type: encephalopathy Severe sepsis shock status: without septic shock Qualified Code(s): A41.9 - Sepsis, unspecified organism; R65.20 - Severe sepsis without septic shock; G93.40 - Encephalopathy, unspecified (4) Liver cirrhosis: Status: Chronic Qualifiers: Hepatic cirrhosis type: other cirrhosis Qualified Code(s): K74.69 - Other cirrhosis of liver (5) ESRD (end stage renal disease) on dialysis: Status: Chronic (6) Hemochromatosis: Status: Chronic Qualifiers: Hemochromatosis type: unspecified Qualified Code(s): E83.119 - Hemochromatosis, unspecified (7) Anemia: Status: Chronic Qualifiers: Anemia type: unspecified type Qualified Code(s): D64.9 - Anemia, unspecified (8) Atrial fibrillation: Status: Chronic Qualifiers: Atrial fibrillation type: unspecified chronic Qualified Code(s): I48.20 - Chronic atrial fibrillation, unspecified Additional A&P Information Sepsis, with septic encephalopathy -Sepsis resolved, encephalopathy resolved -Etiology likely UTI, Enterococcus, does have gram-positive bacteremia, cultures pending -WBC 11.6 -However spontaneous bacterial peritonitis is on the differential, ultrasound of the liver does not show significant ascites -I do not believe his dialysis catheter is a source, no surrounding erythema, notices loop recorder source -Liver cirrhosis, third spacing of fluid, dialysis is certainly playing a role -Currently off pressors, MAP greater than 65 -Alert oriented x3, follows all commands Plan: -Currently on general medical floors -Continue midodrine 10 mg 3 times daily -Monitor blood pressures closely, monitor MAP -Continue broad-spectrum antibiotic therapy vancomycin and Primaxin -Continue fluconazole, history of yeast UTIs -Follow blood cultures, urine cultures, tick panel, so far negative -Continue lactulose and rifaximin -Likely will discharge on SBP prophylaxis -Anticoagulation contraindicated -Protonix for GI prophylaxis -Full code Oral thrush on exam, nystatin Anemia, thrombocytopenia secondary to liver cirrhosis, with component of sepsis Elevated INR, secondary to liver cirrhosis, component of sepsis Hyponatremia, secondary liver cirrhosis Metabolic acidosis, secondary to elevated lactic acid, sepsis, liver failure Hyperbilirubinemia, secondary to liver cirrhosis Elevated troponins, likely type II NSTEMI, supply demand ischemia from sepsis, continue to monitor, telemetry monitoring Liver cirrhosis, decompensated liver failure, secondary to iron overload, with anemia, thrombocytopenia, hepatorenal syndrome, history of upper GI bleed, duodenal ulcer, hyperbilirubinemia, chronically elevated lactic acid, hypoalbuminemia, hepatic encephalopathy -Not a candidate for liver and kidney transplant -Monitor serum ammonia levels, continue rifaximin, lactulose -I did did have a discussion with patient about hospice care, in terms of his long-term care and prognosis, will have hospice discussed with family option End-stage renal disease, hepatorenal syndrome, consult nephrology for dialysis Atrial fibrillation, not a candidate for anticoagulation given GI bleed Continue home Symbicort or similar formulary product Continue home statin therapy Chronically on a PPI which I have continued SCDs for DVT prophylaxis Supportive care otherwise CODE STATUS is presently full code although Mr. Martinez does have a living will on file indicating that if there is no chance of meaningful recovery he would not want to be resuscitated or maintained. Attestations Medical Necessity Statement*: Patient requires hospitalization for liver cirrhosis, gram-positive bacteremia, septic encephalopathy Coding Level of Care Code Acute Respiratory Equipment Assistant for [facility] Diagnoses Altered mental status R40.0 Altered mental status type: somnolence Generalized weakness R53.1 Sepsis A41.9; R65.20; G93.40 Sepsis acute organ dysfunction status: with acute organ dysfunction Sepsis type: sepsis due to unspecified organism Severe sepsis acute organ dysfunction type: encephalopathy Severe sepsis shock status: without septic shock Liver cirrhosis K74.69 Hepatic cirrhosis type: other cirrhosis ESRD (end stage renal disease) on dialysis N18.6; Z99.2 Hemochromatosis E83.119 Hemochromatosis type: unspecified Anemia D64.9 Anemia type: unspecified type Atrial fibrillation I48.20 Atrial fibrillation type: unspecified chronic
[2021-01-31] MEDS: atorvastatin 40 mg Tablet 10 MG PO (17:35)
--- NOTE | 2021-01-31 18:24 | PC.NUTR ---
Nutrition assessment completed for MST score of 4. PO intakes averaging 43% of meals. Increased protein needs with dialysis. Recommend addition of Nepro BID for additional kcal/protein. Recommend to encourage po intake of meals/fluids/supplements to optimize nutrition. See full RD assessment for further details.
[2021-02-01] VITALS (8 sets, daily range): BP systolic 87–109; BP diastolic 51–68; PULSE 75–90; RESP 16–19; TEMP 36.6–36.9; O2SAT 93–98
[2021-02-01] MEDS: fluconazole premix 200 MG/100 ML PREMIX 100 MG IV (04:27)
--- NOTE | 2021-02-01 07:16 | PC.NURSE ---
dialysis pt went to dialysis
[2021-02-01 07:27] LABS: Basophils # 0.1 10^3/uL (0.0-0.1); Basophils % 0.5 %; Eosinophils # 0.3 10^3/uL (0.0-0.8); Hematocrit 23.4 % (42.0-52.0); Hemoglobin 7.8 g/dL (11.7-16.6); Lymphocytes # 2.7 10^3/uL (0.8-4.8); Lymphocytes % 25.8 %; Mean Corpuscular HGB Conc 33.3 g/dL (30.0-36.0); Mean Corpuscular Hemoglobin 35.6 pg (28.0-34.0); Mean Corpuscular Volume 106.8 fl (80-94); Mean Platelet Volume 11.4 fL (7.4-10.4); Monocytes # 1.6 10^3/uL (0.2-0.9); Monocytes % 15.7 %; Neutrophils # 5.55 10^3/uL (1.8-7.7); Neutrophils % 53.6 %; Nucleated Red Blood Cells % 0 %; Platelet Count 55 10^3/cmm (130-400); Red Blood Count 2.19 10^6/uL (4.1-5.3); Red Cell Distribution Width 16.4 % (12.1-15.1); White Blood Count 10.3 10^3/uL (4.0-10.0)
[2021-02-01] MEDS: midodrine 5 mg TABLET 10 MG PO ×2 (07:27→14:43)
[2021-02-01 07:44] LABS: Ammonia 24 umol/L (16-60); Lactate (Lactic Acid level) 1.3 mmol/L (0.5-2.2)
[2021-02-01 07:59] LABS: Alanine Aminotransferase 33 U/L (0-41); Albumin Level 1.7 g/dL (3.5-5.2); Alkaline Phosphatase 117 IU/L (40-130); Anion Gap 12.9 (5-19); Aspartate Amino Transferase 104 U/L (0-40); Blood Urea Nitrogen 43 mg/dL (8-23); C Reactive Protein 40.2 mg/L (0.0-4.9); Calcium 7.7 mg/dL (8.5-10.5); Carbon Dioxide 25 mmol/L (22-29); Chloride 95 mmol/L (98-107); Globulin 3.3 g/dL (1.3-4.6); Glucose 116 mg/dL (65-115); Magnesium 2.3 mg/dL (1.7-2.3); NT Pro B Type Natriuretic Pept 4056 pg/mL (0-125); Osmolality Calculated 280 mOsm/kg (285-295); Potassium 3.9 mmol/L (3.5-5.1); Sodium 129 mmol/L (136-145); Total Bilirubin 3.8 mg/dL (0.15-1.2)
[2021-02-01 08:03] LABS: NT Pro B Type Natriuretic Pept 4421 pg/mL (0-125); Procalcitonin 1.14 ng/mL (0-0.5)
--- NOTE | 2021-02-01 09:17 | PM.PN ---
Subjective Subjective: Interval history: Feels ok, Bp a little low as dialysis was initiated, otherwise feeling ok on dialysis Mild LE edema and no other hypervolemic Sx No fever or chills Medications: Reviewed: Yes Medication Review Details: Current Medications Acetaminophen (Acetaminophen 325 Mg Tablet) 650 mg PO Q6H PRN PRN Reason: MILD PAIN Atorvastatin Calcium (Atorvastatin 40 Mg Tablet) 10 mg PO DAILY@17 [facility] Last Admin: 01/30/21 17:06 Dose: 10 mg Documented by: Folic Acid (Folic Acid 1 Mg Tablet) 1 mg PO DAILY@08 [facility] Last Admin: 01/30/21 08:51 Dose: 1 mg Documented by: Heparin Sodium (Beef Lung) (Heparin Lock Flush 500 Unit/5 Ml Syringe) 500 unit IV ONCE PRN PRN Reason: flush port Imipenem/Cilastatin Sodium 250 (mg/ Sodium Chloride) 100 mls @ 200 mls/hr IV Q6H [facility]; Protocol Last Infusion: 01/31/21 03:22 Dose: Infused Documented by: Vancomycin HCl 1,000 mg/ (Sodium Chloride) 250 mls @ 250 mls/hr IV MoWeFr [facility]; Protocol Last Infusion: 01/29/21 22:19 Dose: Infused Documented by: Fluconazole (Diflucan Premix) 200 mg in 100 mls @ 100 mls/hr IV Q24H [facility] Last Infusion: 01/31/21 04:22 Dose: Infused Documented by: Lactulose (Lactulose Oral Liq 20 Gm/30 Ml Udc) 25 gm PO TID [facility] Last Admin: 01/30/21 20:06 Dose: 25 gm Documented by: Midodrine (Midodrine 5 Mg Tablet) 10 mg PO TID [facility] Last Admin: 01/30/21 20:04 Dose: 10 mg Documented by: Multivitamins (X-Jvvisqn-Nwmwhqm C Tablet) 1 each PO DAILY [facility] Last Admin: 01/30/21 08:51 Dose: 1 each Documented by: Nystatin (Nystatin 100,000 Unit/Ml Udc 5 Ml) 400,000 unit PO QID [facility] Last Admin: 01/30/21 20:04 Dose: 400,000 unit Documented by: Ondansetron HCl (Ondansetron 2 Mg/Ml Sdv 2 Ml) 4 mg IVP Q6H PRN PRN Reason: NAUSEA AND VOMITING Pantoprazole Sodium (Pantoprazole Dr 40 Mg Tablet) 40 mg PO DAILY@08 [facility] Last Admin: 01/30/21 08:52 Dose: 40 mg Documented by: Rifaximin (Rifaximin 550 Mg Tablet) 550 mg PO BID@ [facility]; Protocol Last Admin: 01/30/21 17:06 Dose: 550 mg Documented by: Fluticasone/Salmeterol (Fluticasone-Salmeterol 250-50 Diskus) 1 puff INHALATION BID.RESPIRATORY [facility] Last Admin: 01/30/21 23:09 Dose: Not Given Documented by: Vitals/I&O/Wt Last Vital Signs Temp 98.3 F 02/01/21 08:00 Pulse 80 02/01/21 08:28 Resp 16 02/01/21 08:28 BP 105/65 02/01/21 08:00 Pulse Ox 95 02/01/21 08:28 01/31/21 02/01/21 02/01/21 22:59 06:59 14:59 Intake Total 320 / 540 200 / 740 240 / 240 Balance 320 / 440 200 / 640 240 / 240 Physical Exam Narrative: EXAM NARRATIVE: Constitutional: Awake, comfortable HEENT: Wet mucosa, no jvp, non icteric Lungs: Bilaterally clear without discernible wheeze, rales in all lung zones CVS: S1 S2, no murmurs Abdo: Soft, BS ok Ext 4: Minimal edema, peripheral perfusion with no cyanosis Neurological: Grossly non-focal Data : 01/31/21 11:07 02/01/21 07:07 Micro: Microbiology 01/31/21 17:21 Blood Culture - Preliminary Blood SPECIMEN COLLECTED 01/31/21 17:19 Blood Culture - Preliminary Blood SPECIMEN COLLECTED 01/28/21 15:30 Urine Culture - Final Urine,Clean Catch Enterococcus faecalis 01/28/21 14:30 Blood Culture - Preliminary Blood Staphylococcus aureus 01/28/21 20:27 Blood Culture - Preliminary Blood Staphylococcus aureus A&P Additional A&P Information 1. ESRD Seen on dialysis Continue M, W, F. 2K bath, ultrafiltration, will be gentle 1-2 L. Daily evaluation for dialysis, but will plan to do it again on Monday. Dose medication for GFR less than 15 on dialysis 2. Sepsis Staph Aureus in blood in 2 bottles (I'm unsure why this took so long to result)> tunneled line will need to be removed with holiday for > 48hrs. If MRSA it may need to be > 1 week Currently on empirical antibiotics with vancomycin and Primaxin 3. Chemistry Low sodium will correct with dialysis 4. Anemia Hemoglobin 8.6g/dL. Continue to monitor, if it drops much more we can check iron levels and give EPO. 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
[2021-02-01] MEDS: nystatin 100,000 unit/mL UDC 5 mL 400000 UNIT PO ×2 (11:31→14:43)
[2021-02-01] MEDS: lactulose oral liq 20 gm/30 mL UDC 25 GM PO (11:32)
[2021-02-01] MEDS: b-complex-vitamin c Tablet 1 EACH PO (11:33)
[2021-02-01] MEDS: folic acid 1 mg Tablet PO (11:41)
[2021-02-01] MEDS: pantoprazole DR 40 mg Tablet PO (11:41)
--- NOTE | 2021-02-01 12:22 | PC.HD ---
On arrival to dialysis room pt's BP noted to be 87/60, pt asymptomatic. Dr. Sandhu notified with orders received. Pt's nurse gave midodrine dose early and treatment started with 250ml bolus of NS. Machine temperature decreased to 35.0 and patient was able to complete treatment without issue. Pt's bedscale was apparently not zeroed so unable to weigh pt pre or post treatment.
[2021-02-01 14:47] LABS: Lyme AB Screen <0.90 index
--- NOTE | 2021-02-01 15:15 | PC.SOCIAL ---
IMM update IMM updated with patient. Verbalized an understanding. Copy provided. Initialled, dated, timed, and placed in chart.
--- NOTE | 2021-02-01 15:59 | PM.DCS ---
Discharge Providers Date of Admission: 01/29/21 04:01 Date of Discharge: February 01, 2021 Attending Provider at Admission: Teresa Zapata MD Attending Provider at Discharge: Nadir Quevedo MD Primary Care Provider: Jessica Moreira MD Diagnoses at Discharge Discharge Diagnosis (1) Altered mental status: Status: Acute Qualifiers: Altered mental status type: somnolence Qualified Code(s): R40.0 - Somnolence (2) Generalized weakness: Status: Acute (3) Sepsis: Status: Acute Qualifiers: Sepsis acute organ dysfunction status: with acute organ dysfunction Sepsis type: sepsis due to unspecified organism Severe sepsis acute organ dysfunction type: encephalopathy Severe sepsis shock status: without septic shock Qualified Code(s): A41.9 - Sepsis, unspecified organism; R65.20 - Severe sepsis without septic shock; G93.40 - Encephalopathy, unspecified (4) Liver cirrhosis: Status: Chronic Qualifiers: Hepatic cirrhosis type: other cirrhosis Qualified Code(s): K74.69 - Other cirrhosis of liver (5) ESRD (end stage renal disease) on dialysis: Status: Chronic (6) Hemochromatosis: Status: Chronic Qualifiers: Hemochromatosis type: unspecified Qualified Code(s): E83.119 - Hemochromatosis, unspecified (7) Anemia: Status: Chronic Qualifiers: Anemia type: unspecified type Qualified Code(s): D64.9 - Anemia, unspecified (8) Atrial fibrillation: Status: Chronic Permanent problem details: Not on anticoagulation due to history of bleeding, anemia Qualifiers: Atrial fibrillation type: unspecified chronic Qualified Code(s): I48.20 - Chronic atrial fibrillation, unspecified Reason for Visit Reason for Visit: FEVER/ FATIGUE/ WEAKNESS Hospital Course Hospital Course This is a 75-year-old male with a past medical history of end-stage liver disease, with hepatorenal syndrome, dialysis dependent, has a right tunneled dialysis catheter, with hepatic encephalopathy, history of upper GI bleed, chronically low blood pressures secondary to liver failure, history of duodenal ulcer, chronic hyperbilirubinemia, chronic hypoalbuminemia, chronic anemia, chronically elevated INR, chronic hyponatremia, chronic metabolic acidosis, chronic thrombocytopenia, who was not deemed a candidate for liver and kidney transplant at [facility] who presents to [facility] due to confusion Patient was admitted to [facility] for sepsis, with septic encephalopathy secondary to UTI and bacteremia. Patient required ICU admission for 24 hours, including pressors, broad-spectrum antibiotic therapy, clinically monitored, patient's mentation quickly improved, pressures remain borderline but improved, remained afebrile, inflammatory markers and leukocytosis improved. Patient was moved to the general medical floors, patient's blood cultures came back positive for staph aureus, urine culture was positive for Enterococcus. Likely source of infection for staph aureus was his right tunneled dialysis catheter. Patient remained on vancomycin and Primaxin as inpatient. The following discussion was made in front of patient, his , one of his daughters, and hospice team -I discussed options that are available to the patient -Given his sepsis, with bloodstream infection evident of staph aureus, the likely source of infection is is the tunneled dialysis catheter, in order to effectively treat him, that tunneled dialysis catheter has to be removed and he has to receive IV antibiotics for at least 48 hours, repeat blood cultures which have to be negative before replacing the dialysis catheter -Removing and replacing his dialysis catheter is associated with significant surgical risk, given his liver failure, and his increased risk of bleeding as above, and morbidity mortality associated -However not effectively treating the infection and removing the dialysis catheter is associated with increased risk of sepsis, shock, significant morbidity mortality, further seeding of the infection -Certainly this is a difficult situation, given his comorbidities, and I have apologize for the difficulty in this situation -He has end-stage liver failure, he is dialysis dependent, he was not deemed a suitable candidate for liver transplant, or kidney transplant at [facility], his chronic decompensated liver failure as above -I discussed with him his long-term options given his decompensated liver failure, continue medical interventions versus hospice -After discussing with patient, discussing his multiple comorbidities, the decision was made to pursue hospice, keep his dialysis catheter in place, to treat his infection using oral antibiotics -I was clear with patient that once he goes on to hospice, and we decide not to effectively treat this infection, he does have a risk of septic shock, sepsis, seeding and infection, significant morbidity mortality, but at that point we would be just managing his pain, manage his anxiety, allowing him to be comfortable -I was clear with patient that the only effective way to treat this infection is to remove the source of infection which is the dialysis catheter, and to have IV antibiotics for 6 weeks -By keeping the dialysis catheter, the source of infection remains there, he has increased risk of seeding infection, morbidity mortality associated. However patient does not want the dialysis catheter removed to be removed, he is worried about his surgical risk, risk of bleeding when it would be removed, given his chronically elevated INR -I was clear with patient that we can keep the dialysis catheter in, and we can try to treat the infection with oral antibiotics as he is going on to hospice, however this is not optimal -However oral antibiotics will not effectively treat this infection, and needs IV antibiotics, and he needs the source of infection to be removed -However as he is going on to hospice, the least invasive strategy would be to try oral antibiotics however this is not effective in treating the infection in controlling the source of the infection however as he is on hospice, we want to minimize our aggressive interventions -Advised that once he goes on to hospice, given he has hepatorenal syndrome, he would not qualify for dialysis, discussed the risks and benefits, the morbidity and mortality of stopping dialysis, he voiced understanding, all questions answered agreed to stop dialysis -Discussed the risks and benefits of all options, him and his family voiced understanding, all questions answered, he agreed to proceed to go home on hospice, keep his dialysis catheter in place, and go home on oral antibiotics -Patient's only concern was that he wanted to go home today and be with family -I have discharged patient on Zyvox for 6 weeks, midodrine for blood pressure support, Xifaxan, lactulose, Lasix as needed for swelling -Hospice orders were filled out Physical Exam Const: COMMON NORMALS: no acute distress GENERAL APPEARANCE: cooperative ORIENTATION/CONSCIOUSNESS: Yes awake, Yes oriented to person, Yes oriented to place and Yes oriented to time OTHER: Jaundiced appearing Chest: COMMONS NORMALS: normal inspection of the chest OTHER: Right chest dialysis catheter in place Resp: COMMON NORMALS: normal respiratory effort, No retractions, No use of accessory muscles and clear to auscultation bilaterally AUSCULTATION: clear to auscultation bilaterally Cardio: COMMON NORMALS: regular rate, regular rhythm, S1 normal heart sound present and S2 normal heart sound present RATE: regular rate RHYTHM: regular rhythm HEART SOUNDS: S1 normal heart sound present and S2 normal heart sound present GI: COMMON NORMALS: Normal to inspection, nondistended, normoactive bowel sounds present and Soft to palpation INSPECTION: Yes abdominal distension PALPATION: Yes Soft to palpation Extremity: NARRATIVE EXTREMITY EXAM: 1+ edema bilateral Neuro: SENSORIUM/ORIENTATION: Yes oriented to person, Yes oriented to place and Yes oriented to time Discharge Data Data Completed and Pending: Completed Studies During Hospitalization Category Date Time Status CT head wo con* 7 0450 Stat Cat Scan 01/28/21 13:51 Completed XR chest 1V lee ble [id number] Stat Exams 01/28/21 13:48 Completed XR chest 1V lee ble [id number] Stat Exams 01/28/21 16:18 Completed US abdomen comple te* [id number] Routine Ultrasound 01/30/21 06:00 Completed Pending at discharge Category Date Time Status Blood Culture Sta t Lab 01/28/21 20:27 Results Blood Culture Sta t Lab 01/31/21 17:21 Results C Reactive Protei n AM LABS Lab 02/02/21 04:00 Ordered C Reactive Protei n AM LABS Lab 02/03/21 04:00 Ordered Complete Blood Co unt w/Auto AM LABS Lab 02/02/21 04:00 Ordered Complete Blood Co unt w/Auto AM LABS Lab 02/03/21 04:00 Ordered Comprehensive Met abolic Panel AM LA BS Lab 02/02/21 04:00 Ordered Comprehensive Met abolic Panel AM LA BS Lab 02/03/21 04:00 Ordered Lactate (Lactic A dilip level) AM LABS Lab 02/02/21 04:00 Ordered Lactate (Lactic A dilip level) AM LABS Lab 02/03/21 04:00 Ordered Magnesium AM LABS Lab 02/02/21 04:00 Ordered Magnesium AM LABS Lab 02/03/21 04:00 Ordered NT Pro B Type Dolores riuretic Pept QAM Lab 02/02/21 06:00 Ordered NT Pro B Type Dolores riuretic Pept QAM Lab 02/03/21 06:00 Ordered Phosphorus AM LAB S Lab 02/02/21 04:00 Ordered Phosphorus AM LAB S Lab 02/03/21 04:00 Ordered Procalcitonin AM LABS Lab 02/02/21 04:00 Ordered Procalcitonin AM LABS Lab 02/03/21 04:00 Ordered Prothrombin Time INR AM LABS Lab 02/02/21 04:00 Ordered Prothrombin Time INR AM LABS Lab 02/03/21 04:00 Ordered Tick Panel Stat Lab 01/28/21 19:00 Results Labs from last 24 hours 02/01/21 02/01/21 02/01/21 07:07 07:07 07:07 WBC 10.3 H RBC 2.19 L Hgb 7.8 L Hct 23.4 L MCV 106.8 H MCH 35.6 H MCHC 33.3 RDW 16.4 H Plt Count 55 L MPV 11.4 H Neut % (Auto) 53.6 Lymph % (Auto) 25.8 [place] % (Auto) 15.7 Eos % (Auto) 3.0 Baso % (Auto) 0.5 Neut # (Auto) 5.55 Lymph # (Auto) 2.7 [place] # (Auto) 1.6 H Eos # (Auto) 0.3 Baso # (Auto) 0.1 Nucleated RBC % (a uto) 0 Nucleated RBCs # 0.0 PT INR Sodium Potassium Chloride Carbon Dioxide Anion Gap BUN Creatinine GFR Calculation Glucose Calculated Osmolal ity Lactate Calcium Phosphorus Magnesium Total Bilirubin AST ALT Alkaline Phosphata se Ammonia 24 C-Reactive Protein NT-Pro-B Natriuret Pep 4421 H Total Protein Albumin Globulin Procalcitonin 1.14 H [place] Ab (Western B lot) 02/01/21 02/01/21 02/01/21 07:07 07:07 07:07 WBC RBC Hgb Hct MCV MCH MCHC RDW Plt Count MPV Neut % (Auto) Lymph % (Auto) [place] % (Auto) Eos % (Auto) Baso % (Auto) Neut # (Auto) Lymph # (Auto) [place] # (Auto) Eos # (Auto) Baso # (Auto) Nucleated RBC % (a uto) Nucleated RBCs # PT 25.80 H INR 2.30 H Sodium 129 L Potassium 3.9 Chloride 95 L Carbon Dioxide 25 Anion Gap 12.9 BUN 43 H Creatinine 3.3 H GFR Calculation Not Reportable Glucose 116 H Calculated Osmolal ity 280 L Lactate 1.3 Calcium 7.7 L Phosphorus 5.0 H Magnesium 2.3 Total Bilirubin 3.8 H AST 104 H ALT 33 Alkaline Phosphata se 117 Ammonia C-Reactive Protein 40.2 H NT-Pro-B Natriuret Pep 4056 H Total Protein 5.0 L Albumin 1.7 L Globulin 3.3 Procalcitonin [place] Ab (Western B lot) 01/28/21 19:00 WBC RBC Hgb Hct MCV MCH MCHC RDW Plt Count MPV Neut % (Auto) Lymph % (Auto) [place] % (Auto) Eos % (Auto) Baso % (Auto) Neut # (Auto) Lymph # (Auto) [place] # (Auto) Eos # (Auto) Baso # (Auto) Nucleated RBC % (a uto) Nucleated RBCs # PT INR Sodium Potassium Chloride Carbon Dioxide Anion Gap BUN Creatinine GFR Calculation Glucose Calculated Osmolal ity Lactate Calcium Phosphorus Magnesium Total Bilirubin AST ALT Alkaline Phosphata se Ammonia C-Reactive Protein NT-Pro-B Natriuret Pep Total Protein Albumin Globulin Procalcitonin [place] Ab (Western B lot) <0.90 Vitals: Last Vital Signs Temp 98.4 F 02/01/21 12:29 Pulse 80 02/01/21 12:29 Resp 16 02/01/21 12:29 BP 105/68 02/01/21 12:29 Pulse Ox 93 02/01/21 11:41 Discharge Plan Discharge Patient Disposition: Hospice - Home Condition: Stable Prescriptions: New lactulose 20 gram/30 mL Solution 25 g PO TID 30 Days Qty: 3375 RF: 3 Zyvox 600 mg tablet 600 mg PO BID 42 Days Qty: 84 RF: 0 Lasix 40 mg tablet 40 mg PO DAILY PRN (Reason: edema) 30 Days Qty: 30 RF: 0 Klor-Con M20 20 mEq tablet,ER particles/crystals 20 meq PO DAILY PRN (Reason: with lasix) 30 Days Qty: 30 RF: 0 Continued budesonide-formoterol [Symbicort] 80-4.5 mcg/actuation Hfa Aerosol Inhaler 2 puff INHALATION BID RF: 0 midodrine 5 mg Tablet 10 mg PO TID 30 Days Qty: 180 RF: 0 Xifaxan 550 mg tablet 550 mg PO BID@0800,1700 30 Days Qty: 60 RF: 0 Discontinued spironolactone 50 mg tablet 50 mg PO QAM RF: 0 pantoprazole 40 mg tablet,delayed release (DR/EC) 40 mg PO DAILY@08 RF: 0 pravastatin 20 mg tablet 10 mg PO DAILY@17 RF: 0 folic acid 1 mg Tablet 1 mg PO DAILY@08 RF: 0 lactulose 10 gram/15 mL solution 45 ml PO BID PRN (Reason: Constipation) RF: 0 Discharge Orders: Discharge Order (Routine); Ordered 02/01/21 Ordered By: Nadir Quevedo Referrals: [facility]) [Outside] Jessica Moreira MD [Primary Care Provider] - (Call [phone] to schedule an appointment with Dr. Moreira in a week. ) Discharge Diet: Regular Discharge Activity: Resume usual activity Patient Instructions: Furosemide (By mouth), Potassium Chloride (By mouth), Lactulose (By mouth), Linezolid (By mouth), Hospice Care (GEN), Opioid Safety Discharge Attestations Time Spent in Discharge Care*: greater than 30 min Status at Discharge: Cognitive status at discharge: cognitively intact, Behavioral status at discharge: cooperative, Quality Metrics Clinical Quality Measures During this hospital stay, did patient experience: None Coding Level of Care Code Acute [facility] note Diagnoses Altered mental status R40.0 Altered mental status type: somnolence Generalized weakness R53.1 Sepsis A41.9; R65.20; G93.40 Sepsis acute organ dysfunction status: with acute organ dysfunction Sepsis type: sepsis due to unspecified organism Severe sepsis acute organ dysfunction type: encephalopathy Severe sepsis shock status: without septic shock Liver cirrhosis K74.69 Hepatic cirrhosis type: other cirrhosis ESRD (end stage renal disease) on dialysis N18.6; Z99.2 Hemochromatosis E83.119 Hemochromatosis type: unspecified Anemia D64.9 Anemia type: unspecified type Atrial fibrillation I48.20 Atrial fibrillation type: unspecified chronic
--- NOTE | 2021-02-03 13:55 | PC.SOCIAL ---
follow up discharge all made. Per patient is doing ok . new medications picked up and taking as prescribed. [facility] is seeing patient.
[2021-02-03 17:23] LABS: E. Chaffeensis AB IGG <1:64; E. Chaffeensis AB IGM <1:20
[2021-02-04 16:58] LABS: RMSF IGG NOT DETECTED; RMSF IGM NOT DETECTED
== END 2021-02-01 16:18 | disposition hospice, home (50) | DRG 871 ==
LOC: ER 01-29 00:40 → ICU 01-29 00:56 → MEDSURG 01-29 13:15
PROVIDERS: Internal Medicine Nephrology; Admitting Provider Hospitalist; Emergency Provider Emergency Medicine; PCP Family Medicine; Visit Provider Family Medicine
DX: A41.9 Sepsis, unspecified organism (principal); K72.00 Acute and subacute hepatic failure without coma; N18.6 End stage renal disease; K65.2 Spontaneous bacterial peritonitis; G93.41 Metabolic encephalopathy; I48.20 Chronic atrial fibrillation, unspecified; I12.0 Hypertensive chronic kidney disease with stage 5 chronic kidney disease or end stage renal disease; N39.0 Urinary tract infection, site not specified; K76.6 Portal hypertension; T82.7XXA Infection and inflammatory reaction due to other cardiac and vascular devices, implants and grafts, initial encounter; B37.0 Candidal stomatitis; E87.1 Hypo-osmolality and hyponatremia; E87.4 Mixed disorder of acid-base balance; R65.20 Severe sepsis without septic shock; K72.10 Chronic hepatic failure without coma; E83.119 Hemochromatosis, unspecified; K74.69 Other cirrhosis of liver; I71.4 Abdominal aortic aneurysm, without rupture; E88.01 Alpha-1-antitrypsin deficiency; N40.0 Benign prostatic hyperplasia without lower urinary tract symptoms; K57.90 Diverticulosis of intestine, part unspecified, without perforation or abscess without bleeding; K44.9 Diaphragmatic hernia without obstruction or gangrene; Z86.010 Personal history of colon polyps; Z99.2 Dependence on renal dialysis; E78.5 Hyperlipidemia, unspecified; Z86.73 Personal history of transient ischemic attack (TIA), and cerebral infarction without residual deficits; D63.1 Anemia in chronic kidney disease; I95.9 Hypotension, unspecified; D69.59 Other secondary thrombocytopenia; Y82.9 Unspecified medical devices associated with adverse incidents; A49.01 Methicillin susceptible Staphylococcus aureus infection, unspecified site; I35.0 Nonrheumatic aortic (valve) stenosis
CPT/HCPCS: 36415; 36600; 70450; 71045; 76700; 80051; 80053; 80202; 80306; 80307; 81001; 82140; 82306; 82310; 82330; 82533; 82728; 82803; 82805; 83540; 83550; 83605; 83690; 83735; 83880; 83970; 84100; 84145; 84443; 84484; 85025; 85610; 85730; 86140; 86403; 86618; 86666; 86706; 86757; 86803; 87040; 87077; 87086; 87186; 87205; 87340; 87426; 87635; 90935; 93005; 94640; 96365; 96367; 96375; 97161; 97166; 99285; J0743; J1450; J1885; J2543; J3370; J7030; J7040; J7050; Q3014